=== PATIENT | male | born 1955 | race Caucasian/White ===

== ENCOUNTER 2016-07-19 17:34 | Emergency (ER) | payer MEDICARE ==
[~2016-07-19] VITALS: Ht 167.6 cm; Wt 136.5 kg
[2016-07-19] MEDS ORDERED: AMBI10TA PO (17:43)
[2016-07-19] MEDS ORDERED: NORC5TAB PO (17:44)
[2016-07-19] MEDS ORDERED: NORCO, ANEXSIA 5/325MG TABLET (HYDROcodone/ACETAMINOPHEN) PO ONE (19:30)
[2016-07-19] MEDS ORDERED: MOBI7.5T10 PO (20:14)
[2016-07-19 20:15] VITALS: BP 136/83
--- NOTE | 2016-07-20 10:30 | REP ---
Pain after fall. COMPARISON: None. Marked and advanced bilateral hip degenerative changes are present with flattening of the femoral heads, hip chris eburnation with marked prominent osteophytosis and developing protrusio acetabuli. Subchondral lucencies are seen bilaterally consistent with degenerative cyst/geode formation. Degenerative change is seen involving the imaged spine and sacroiliac joints. There is no evidence of an acute fracture or dislocation. IMPRESSION: Marked chronic changes as described above. Signed by Nick Gamble DO 07/20/2016 11:25 A
--- NOTE | 2016-07-20 10:35 | REP ---
Pain after trauma. COMPARISON: None. There are marked degenerative changes seen involving the right hip. Please see the AP pelvis report for more complete description. There is no acute fracture or dislocation. Signed by Nick Gamble DO 07/20/2016 11:25 A
== END 2016-07-19 20:16 | disposition home or self-care (01) ==
LOC: M ED 18:34
DX: S73.102A Unspecified sprain of left hip, initial encounter (principal); W18.40XA Slipping, tripping and stumbling without falling, unspecified, initial encounter; Y92.018 Other place in single-family (private) house as the place of occurrence of the external cause; Y93.89 Activity, other specified; Y99.8 Other external cause status; M19.90 Unspecified osteoarthritis, unspecified site

== ENCOUNTER 2016-09-18 09:08 | Inpatient (IN) | payer MEDICARE ==
[~2016-09-18] VITALS: Ht 180.3 cm; Wt 169.1 kg
[~2016-09-18 09:08] MED LIST: AMBI10TA PO; MOBI7.5T10 PO; NORC1TAB4 PO
[2016-09-18] MEDS ORDERED: CLON0.5T PO (09:40)
[2016-09-18] MEDS ORDERED: METF500T PO (09:40)
[2016-09-18] MEDS ORDERED: TRAM50TA2 PO (09:40)
[2016-09-18] MEDS ORDERED: LEVO50TA5 PO (09:40)
[2016-09-18] MEDS ORDERED: ACET300T52 PO (09:40)
[2016-09-18] MEDS ORDERED: NS 1,000 ML IV ONE (10:15)
[2016-09-18] MEDS: HYDROmorphone HCL 1 MG/ML SYRINGE (J1170) IV PRN ×2 (10:48→13:57)
--- NOTE | 2016-09-18 11:23 | REP ---
CT ABDOMEN AND PELVIS WITHOUT CONTRAST: CT abdomen and pelvis performed without oral or IV contrast with sagittal and coronal reconstruction images performed. Comparison made with prior study of 07/09/2007. In the visualized lung bases, there is a small right pleural effusion with mild adjacent atelectatic change. Liver, gallbladder, spleen, adrenals, pancreas and kidneys are grossly unremarkable. No renal or ureteral calculus is seen and there is no evidence of hydroureteronephrosis. Mild atherosclerotic calcifications are seen of the abdominal aorta without aneurysm. I do not see significant adenopathy. There is no free air or free fluid. There is no evidence of bowel wall thickening. There is sigmoid diverticulosis without evidence of acute diverticulitis. There are also diverticula of the left colon. There is an umbilical hernia present which demonstrates an aperture 2.2 cm in width with the hernia sac containing fat and measuring approximately 5.8 x 9.2 cm. Urinary bladder is mildly distended and grossly unremarkable. There are severe degenerative changes at the hips. IMPRESSION: Small right effusion with adjacent atelectatic change. Moderate to large umbilical hernia containing fat. Sigmoid diverticulosis without evidence of acute diverticulitis. Severe degenerative changes of the hip joints bilaterally. No other acute finding. Signed by Nathan Yang MD 09/18/2016 04:21 P
[2016-09-18 11:27] LABS: BASO % 0.1 % (0.0-1.0); EOS % 0.4 % (0.0-3.0); LARGE UNSTAINED CELL # 0.1 K/mm3 (0.0-0.4); LARGE UNSTAINED CELL % 1.4 % (0.0-4.0); LYMPH # 0.6 K/mm3 (1.5-4.5); LYMPH % 8.3 % (24.0-44.0); MEAN CORPUSCULAR HEMOGLOBIN 32.9 pg (27.0-33.0); MEAN CORPUSCULAR HGB CONC 32.7 g/dl (32.0-36.5); MEAN CORPUSCULAR VOLUME 100.4 fl (80.0-96.0); MONO # 0.3 K/mm3 (0.0-0.8); NEUTROPHILS # 5.8 K/mm3 (1.8-7.7); NEUTROPHILS % 85.9 % (36.0-66.0); PLATELET COUNT, AUTOMATED 113 k/mm3 (150-450); RED CELL DISTRIBUTION WIDTH 13.1 % (11.5-14.5); WHITE BLOOD COUNT 6.8 K/mm3 (4.0-10.0)
[2016-09-18 11:29] LABS: ALBUMIN 3.3 GM/DL (3.2-5.2); ALBUMIN/GLOBULIN RATIO 0.73 (1.00-1.93); ALKALINE PHOSPHATASE 372 U/L (45-117); ALT/SGPT 60 U/L (12-78); AMYLASE 154 U/L (25-115); ANION GAP 6 MEQ/L (8-16); AST/SGOT 70 U/L (15-37); BILIRUBIN,DIRECT 4.2 MG/DL (0.0-0.2); BILIRUBIN,TOTAL 5.5 MG/DL (0.2-1.0); BLOOD UREA NITROGEN 11 MG/DL (7-18); CALCIUM LEVEL 8.6 MG/DL (8.5-10.1); CARBON DIOXIDE LEVEL 27 MEQ/L (21-32); CHLORIDE LEVEL 107 MEQ/L (98-107); CREATININE FOR GFR 0.76 MG/DL (0.70-1.30); GLOMERULAR FILTRATION RATE > 60.0 (>56); GLUCOSE, FASTING 113 MG/DL (70-105); POTASSIUM SERUM 3.6 MEQ/L (3.5-5.1); SODIUM LEVEL 140 MEQ/L (136-145); TOTAL PROTEIN 7.8 GM/DL (6.4-8.2)
--- NOTE | 2016-09-18 12:57 | REP ---
Right upper quadrant sonography: History: Elevated lipase. Question obstruction. Comparison is made with today's CT study. Findings: Scanning through right upper quadrant of the abdomen shows limited image quality due to patient body habitus and gas. The patient exhibited tenderness to scanning diffusely. Scanning demonstrates a normal sized thin-walled gallbladder without evidence of stone or polyp. Common bile duct is normal measuring 0.3 cm in greatest diameter. No focal liver lesion is seen. There is no visible ascites by ultrasound. No right renal abnormality is seen although the right kidney is poorly seen. The pancreas is obscured by abdominal gas. The right kidney measures 12.9 x 7.2 x 6.2 cm. Impression: Somewhat limited scan quality. No evidence of cholelithiasis or other significant abnormality. Signed by Josh Marie MD 09/18/2016 01:00 P
[2016-09-18] MEDS ORDERED: DEXTROSE 50% 50 ML SYRINGE IV PRN (13:30)
[2016-09-18] MEDS ORDERED: GLUCOSE 4 GM CHEW TABLET PO PRN (13:30)
[2016-09-18] MEDS ORDERED: GLUCAGON FOR INJ 1 MG VIAL (J1610) SC PRN (13:30)
[2016-09-18] MEDS ORDERED: ACETAMINOPHEN TAB 650MG DOSE (2X325MG) PO PRN (13:30)
[2016-09-18] MEDS ORDERED: ONDANSETRON 4MG/2ML VIAL (J2405) IV PRN (13:30)
--- NOTE | 2016-09-18 14:06 | HPE ---
DATE OF ADMISSION: 09/18/2016 PRIMARY CARE PROVIDER: CHIEF COMPLAINT: Right upper abdominal pain. HISTORY OF PRESENT ILLNESS: This patient is a 61-year-old male with morbid obesity, severe osteoarthritis, diabetes, hypothyroidism, possible obstructive sleep apnea, who presented to [facility] on 09/18/2016 for acute right abdominal pain. The patient stated that around 2:00 to 3:00 a.m. this morning that he was resting and he experienced acute onset of achy type of pain without any radiation and the pain has been persistent and the patient came to [facility] for further evaluation. Laboratories showed that the patient had elevated lipase. The patient denies any alcohol use. Denies any fatty food consumption. Denies any history of gallstones. Denied any recent medication changes. Besides the abdominal pain, the patient denies any other associated symptoms. ALLERGIES: No known drug allergies. PAST MEDICAL HISTORY: 1. Morbid obesity. 2. Severe osteoarthritis, especially on the right hip. 3. Diabetes. 4. Hypothyroidism. 5. Carpal tunnel. 6. Possible obstructive sleep apnea. PAST SURGICAL HISTORY: 1. Appendectomy. 2. Tonsillectomy. HOME MEDICATIONS: - [place] one tablet by mouth three times a day as needed - Klonopin one tablet by mouth three times a day - levothyroxine 50 mcg daily - metformin 500 mg by mouth twice a day - tramadol one tablet every four hours as needed - Ambien 10 mg by mouth at night SOCIAL HISTORY: The patient used to smoke 1-1/2 packs daily for more than 30 years. The patient quit 5 weeks ago. The patient denied alcohol use. The patient denied any recreational drug use. REVIEW OF SYSTEMS: GENERAL: No fever. No chills. HEENT: No vision change. No auditory changes. CARDIOVASCULAR: No chest pain or palpitations. RESPIRATORY: No shortness of breath. No cough. No sputum production. ABDOMEN: Acute achy abdominal pain located in right upper quadrant without any radiation. No nausea. No vomiting. No diarrhea. MUSCULOSKELETAL: Chronic venous stasis changes in bilateral lower extremities. The patient has been taking intermittent Lasix diuresis. NEUROLOGIC: Denies any new numbness or tingling. OBJECTIVE: VITAL SIGNS: Temperature is 99.1, pulse is 51, respirations 18, blood pressure is 117/65, pulse oximetry is 98% on room air. GENERAL: Mild distress secondary to abdominal pain. Alert and oriented times three. HEENT: Normocephalic, atraumatic. Extraocular muscles are grossly intact. CARDIOVASCULAR: Positive S1, S2. Regular rate. LUNGS: Clear to auscultation bilaterally. No wheezes or rhonchi. ABDOMEN: Tender to palpation located in the right upper abdomen to the left lateral side. No rebound. No radiation. Abdomen is soft. Bowel sounds present. MUSCULOSKELETAL: Positive chronic venous stasis changes, mild ulcers of the bilateral shins. Positive lower extremity edema. No sign of cyanosis. LABORATORY DATA: WBC 6.8, hemoglobin 12.8, hematocrit 39.1, platelet count is 113. Sodium is 140, potassium 3.6, chloride 107, carbon dioxide 27, BUN 11, creatinine 0.76, GFR greater than 60, fasting glucose 113, calcium 8.6, total bilirubin 5.5, direct bilirubin is 4.2, AST 17, ALT 60, alkaline phosphatase 372. Total protein 7.8, albumin 3.3. Amylase is 154, lipase is 1105. IMAGING STUDIES: CT of the abdomen and pelvis without contrast showed small right effusion with adjacent atelectatic changes. Moderate to large umbilical hernia containing fat. Sigmoid diverticulosis without evidence of acute diverticulitis. Gallbladder ultrasound showed somewhat limited scan quality. No evidence of cholelithiasis or other significant abnormalities. ASSESSMENT AND PLAN: 1. Pancreatitis. The patient will be admitted to medical surgical floor under inpatient status. THe patient will be nothing by mouth with full hydration. The patient will get IV morphine for pain control. The patient denies any recent medication changes. Denies any fatty food. Denies any alcohol consumption. We will follow with a liver profile. Gallbladder ultrasound was obtained; however, the image quality is very limited. The final report shows that there is no stone. We will consider getting an MRCP. 2. Diabetes. The patient is nothing by mouth. The patient will be on sliding scale every 6 hours. I will follow with A1/c. 3. Hypothyroidism. The patient is on Synthroid. We will follow with a TSH. 4. Severe osteoarthritis. 5. Morbid obesity. 6. Possible obstructive sleep apnea. The patient will be on obstructive sleep apnea protocol. 7. Deep vein thrombosis (DVT) prophylaxis. The patient will be on heparin.
[2016-09-18 14:11] LABS: CHOLESTEROL LEVEL 131 MG/DL (<200); TRIGLYCERIDES LEVEL 61 MG/DL (<150)
[2016-09-18] MEDS: HumaLOG INSULIN (NovoLOG) PER UNIT SC SCH ×2 (14:49→18:00)
[2016-09-18] MEDS: NS 1,000 ML IV SCH ×2 (14:50→23:27)
[2016-09-18] MEDS: HEPARIN SOD (PORCINE) 5000 UNITS/ML VIAL SC SCH ×2 (14:50→20:45)
[2016-09-18] MEDS: MORPHINE 2 MG/ML 1ML SYRINGE IV PRN (18:42)
[2016-09-18] MEDS ORDERED: clonazePAM 0.5 MG TAB PO PRN (18:45)
[2016-09-18] MEDS: zolPIDEM TARTRATE 10MG TAB PO SCH (20:44)
[2016-09-18] MEDS: NYSTATIN 100,000 UNITS/GM TOPICAL PWD 15 GM TOP SCH (20:44)
[2016-09-18] MEDS: traMADol 50 MG TAB PO PRN (20:47)
[2016-09-18 22:00] VITALS: BP 147/73
[2016-09-19] MEDS: LEVOTHYROXINE 0.05 MG TAB (50 MCG) PO SCH (05:59)
[2016-09-19 06:00] VITALS: BP 163/81
[2016-09-19] MEDS: HumaLOG INSULIN (NovoLOG) PER UNIT SC SCH ×4 (06:00→18:00)
[2016-09-19] MEDS: HEPARIN SOD (PORCINE) 5000 UNITS/ML VIAL SC SCH ×3 (06:00→22:05)
[2016-09-19 06:56] LABS: MEAN CORPUSCULAR HGB CONC 33.1 g/dl (32.0-36.5); MEAN CORPUSCULAR VOLUME 99.8 fl (80.0-96.0); RED CELL DISTRIBUTION WIDTH 13.3 % (11.5-14.5); WHITE BLOOD COUNT 8.2 K/mm3 (4.0-10.0)
[2016-09-19 07:23] LABS: ANION GAP 9 MEQ/L (8-16); BLOOD UREA NITROGEN 11 MG/DL (7-18); CALCIUM LEVEL 7.8 MG/DL (8.5-10.1); CARBON DIOXIDE LEVEL 22 MEQ/L (21-32); CHLORIDE LEVEL 109 MEQ/L (98-107); GLOMERULAR FILTRATION RATE > 60.0 (>56); GLUCOSE, FASTING 75 MG/DL (70-105); POTASSIUM SERUM 3.7 MEQ/L (3.5-5.1); SODIUM LEVEL 140 MEQ/L (136-145)
[2016-09-19 07:28] LABS: ALBUMIN 2.8 GM/DL (3.2-5.2); ALBUMIN/GLOBULIN RATIO 0.8 (1.00-1.93); BILIRUBIN,DIRECT 4.2 MG/DL (0.0-0.2); BILIRUBIN,TOTAL 5.1 MG/DL (0.2-1.0); TOTAL PROTEIN 6.3 GM/DL (6.4-8.2)
[2016-09-19] MEDS: NYSTATIN 100,000 UNITS/GM TOPICAL PWD 15 GM TOP SCH ×2 (10:17→22:03)
[2016-09-19] MEDS: traMADol 50 MG TAB PO PRN ×3 (10:21→22:04)
[2016-09-19] MEDS: NS 1,000 ML IV SCH ×2 (10:22→19:52)
[2016-09-19 11:53] LABS: METHADONE URINE NEGATIVE (NEGATIVE)
--- NOTE | 2016-09-19 17:07 | IPNPDOC ---
Text Note Date of Service The patient was seen on 09/19/16. NOTE Subjective: Patient is a 61 year old male with a PMHx of NIDDM2, Hypothyroidism, NETTE, Severe OA, and morbid obesity who presented to the ER with complaints of right upper abdominal pain. He was found to have an elevated lipase level and he was admitted for acute pancreatitis. He has not had a gallbladder surgery and he denies any excessive alcohol use. Patient was seen and examined at the bedside. He denied any problems at this time. He notes that he does not have much nausea or vomiting, and is hungry at this time. Objective: Vitals (See below) General: Lying in bed, no acute distress, comfortable, AAOx3 HEENT: NC, AT CVS: RRR, +S1S2 Lungs: Fair air entry b/l, -w/r/r Abdomen: Soft, ND, No tenderness appreciated, +BSx4, Obese Extremities: +PPx4, - Edema, - Calf tenderness Assessment and plan: 1. s/p abdominal pain - likely 2/2 pancreatitis - possibly 2/2 gall bladder etiology - Presented with abdominal pain, nausea and vomiting; has resolved - Physical revealed RUQ and epigastric tenderness initially; has completely resolved - Lipase level initially elevated - Lipid panel noted and alcohol level negative - Labs today reveal worsening of liver enzymes - US abdomen has been negative - Will get HIDA scan to evaluate for any biliary etiology - c/w IV fluid hydration and symptomatic relief with morphine and zofran - Will start liquid clear diet now and advance as tolerated 2. NIDDM2 - c/w ISS for now 3. Hypothyroidism - c/w levothyroxine 4. Severe OA - c/w Tylenol PRN 5. Possible NETTE - c/w NETTE protocol 6. Morbid obesity 7. DVT prophylaxis - c/w Heparin VS,Fishbone, I+O VS, Fishbone, I+O Laboratory Tests 09/19/16 06:38 Red Blood Count 3.54 L, Mean Corpuscular Volume 99.8 H, Mean Corpuscular Hemoglobin 33.0, Mean Corpuscular Hemoglobin Concent 33.1, Red Cell Distribution Width 13.3, Calcium Level 7.8 L Vital Signs Date Time Temp Pulse Resp B/P (MAP) Pulse Ox O2 Delivery O2 Flow Rate FiO2 09/19/16 16:30 18 09/19/16 06:00 98.2 70 163/81 (458) 98 Room Air I&O- Last 24 Hours up to 6 AM 09/19/16 06:00 Intake Total 1000 ml Output Total 600 ml Balance 400 ml SHADY GONZALES MD September 19, 2016 17:07
--- NOTE | 2016-09-19 18:19 | REP ---
HIDA SCAN: Following the intravenous administration of 6.2 millicuries of technetium 99M Mebrofenin, multiple images of the right upper quadrant are performed for 1 hour. Biliary bile transit is seen. I do not visualize the gallbladder. Delayed images at 3 hours post injection also do not def show the gallbladder. IMPRESSION: Nonvisualization of the gallbladder 3 hours post injection suggests acute cholecystitis. Signed by Nathan Yang MD 09/19/2016 08:06 P
[2016-09-19] MEDS: MORPHINE 2 MG/ML 1ML SYRINGE IV PRN (20:10)
[2016-09-19 22:00] VITALS: BP 168/76
[2016-09-19] MEDS: zolPIDEM TARTRATE 10MG TAB PO SCH (22:03)
[2016-09-20] MEDS: MORPHINE 2 MG/ML 1ML SYRINGE IV PRN ×6 (02:50→15:42)
[2016-09-20] MEDS: NS 1,000 ML IV SCH (04:47)
[2016-09-20] MEDS: traMADol 50 MG TAB PO PRN ×3 (04:47→15:43)
[2016-09-20 06:00] VITALS: BP 156/71
[2016-09-20] MEDS: HumaLOG INSULIN (NovoLOG) PER UNIT SC SCH ×3 (06:00→12:00)
[2016-09-20] MEDS: HEPARIN SOD (PORCINE) 5000 UNITS/ML VIAL SC SCH ×2 (06:07→13:03)
[2016-09-20] MEDS: LEVOTHYROXINE 0.05 MG TAB (50 MCG) PO SCH (06:07)
[2016-09-20 06:22] LABS: MEAN CORPUSCULAR HEMOGLOBIN 32.8 pg (27.0-33.0); MEAN CORPUSCULAR HGB CONC 33.8 g/dl (32.0-36.5); MEAN CORPUSCULAR VOLUME 97.2 fl (80.0-96.0); RED CELL DISTRIBUTION WIDTH 13.4 % (11.5-14.5); WHITE BLOOD COUNT 6.6 K/mm3 (4.0-10.0)
[2016-09-20 06:38] LABS: ALBUMIN 2.6 GM/DL (3.2-5.2); ALBUMIN/GLOBULIN RATIO 0.63 (1.00-1.93); ALKALINE PHOSPHATASE 472 U/L (45-117); ALT/SGPT 92 U/L (12-78); ANION GAP 11 MEQ/L (8-16); AST/SGOT 107 U/L (15-37); BILIRUBIN,DIRECT 5.5 MG/DL (0.0-0.2); BILIRUBIN,TOTAL 6.8 MG/DL (0.2-1.0); BLOOD UREA NITROGEN 10 MG/DL (7-18); CALCIUM LEVEL 7.7 MG/DL (8.5-10.1); CARBON DIOXIDE LEVEL 21 MEQ/L (21-32); CHLORIDE LEVEL 105 MEQ/L (98-107); CREATININE FOR GFR 0.53 MG/DL (0.70-1.30); GLOMERULAR FILTRATION RATE > 60.0 (>56); GLUCOSE, FASTING 84 MG/DL (70-105); POTASSIUM SERUM 3.7 MEQ/L (3.5-5.1); SODIUM LEVEL 137 MEQ/L (136-145); TOTAL PROTEIN 6.7 GM/DL (6.4-8.2)
[2016-09-20] MEDS: NYSTATIN 100,000 UNITS/GM TOPICAL PWD 15 GM TOP SCH (08:43)
--- NOTE | 2016-09-20 11:24 | IPNPDOC ---
Text Note Date of Service The patient was seen on 09/20/16. NOTE Subjective: Patient is a 61 year old male with a PMHx of NIDDM2, Hypothyroidism, NETTE, Severe OA, and morbid obesity who presented to the ER with complaints of right upper abdominal pain. He was found to have an elevated lipase level and he was admitted for acute pancreatitis. He has not had a gallbladder surgery and he denies any excessive alcohol use. Patient was seen and examined at the bedside. Patient notes that his abdominal pain is recurring again. He has lost his appetite. Denies any nausea or vomiting. Objective: Vitals (See below) General: Lying in bed, no acute distress, comfortable, AAOx3 HEENT: NC, AT CVS: RRR, +S1S2 Lungs: Fair air entry b/l, -w/r/r Abdomen: Soft, ND, RUQ tenderness, +BSx4, Obese Extremities: +PPx4, - Edema, - Calf tenderness Assessment and plan: 1. Abdominal pain - likely 2/2 pancreatitis - possibly 2/2 gall bladder etiology - Presented with abdominal pain, nausea and vomiting; recurred - Physical revealed RUQ and epigastric tenderness initially; Now localized to RUQ - Lipase level normalized - Lipid panel noted and alcohol level negative - Labs again show AST / ALT elevation and Alk phos trending upward - US abdomen has been negative - HIDA scan positive for acute cholecystitis - c/w IV fluid hydration and symptomatic relief with morphine and zofran - Discussed with Dr. Gordillo (General surgery) - will evaluate the patient; will keep NPO since this morning 2. NIDDM2 - c/w ISS for now 3. Hypothyroidism - c/w levothyroxine 4. Severe OA - c/w Tylenol PRN 5. Possible NETTE - c/w NETTE protocol 6. Morbid obesity 7. DVT prophylaxis - c/w Heparin VS,Fishbone, I+O VS, Fishbone, I+O Laboratory Tests 09/20/16 05:58 Red Blood Count 3.63 L, Mean Corpuscular Volume 97.2 H, Mean Corpuscular Hemoglobin 32.8, Mean Corpuscular Hemoglobin Concent 33.8, Red Cell Distribution Width 13.4 Vital Signs Date Time Temp Pulse Resp B/P (MAP) Pulse Ox O2 Delivery O2 Flow Rate FiO2 09/20/16 11:18 18 Room Air 09/20/16 06:00 98.5 53 156/71 (79) 97 I&O- Last 24 Hours up to 6 AM 09/20/16 06:00 Intake Total 3950 ml Balance 3950 ml SHADY GONZALES MD September 20, 2016 11:24
[2016-09-20] MEDS ORDERED: HEPA50VL SC (12:45)
[2016-09-20] MEDS ORDERED: MERO1INJ IV (12:45)
[2016-09-20] MEDS ORDERED: INSUHUMDS SC (12:45)
[2016-09-20] MEDS ORDERED: MEROPENEM INJ 1 GM in D5W MINI-BAG PLUS 100 ML IV SCH (13:00)
--- NOTE | 2016-09-20 14:01 | DSES ---
DATE OF ADMISSION: 09/18/2016 DATE OF DISCHARGE: 09/20/2016 ATTENDING PHYSICIAN: Dr. Philip Sullivan PRIMARY CARE PROVIDER: Gianluca Stewart REFERRING PHYSICIAN: None. CONSULTING PHYSICIAN: Dr. Gordillo CONDITION ON DISCHARGE: Guarded. FINAL DIAGNOSIS: Abdominal pain, likely secondary to pancreatitis, possibly secondary to acute cholecystitis/choledocholithiasis. PROCEDURES: None. HISTORY OF PRESENT ILLNESS: Patient is a 61-year-old male with a past medical history of a [id number] diabetes mellitus type 2, hypothyroidism, obstructive sleep apnea, severe osteoarthritis, and morbid obesity, who presented to the emergency room with complaints of right upper abdominal pain. He was found to have an elevated lipase, and he was admitted for acute pancreatitis. He has not had a gallbladder surgery, and he denies any excessive alcohol use. HOSPITAL COURSE: 1. Abdominal pain, likely secondary to pancreatitis, possibly secondary to gallbladder etiology, possibly secondary to acute cholecystitis and choledocholithiasis. Presented with abdominal pain, nausea, vomiting, which was improving initially but had recurred. Physical initially revealed right upper quadrant pain and epigastric tenderness initially, but now it is localized to the right upper quadrant. Lipase was elevated upon admission but has trended down to normal. Liver panel was noted and was within normal limits. Alcohol level was negative. Labs throughout the hospital course revealed an elevation in his AST and ALT, which trended upward, and his alkaline phosphatase, which trended upward. Ultrasound of abdomen was completed, which was negative. Hepatobiliary iminodiacetic acid (HIDA) scan was positive for possible acute cholecystitis and could not visual the gallbladder. Patient was put on IV fluid hydration and symptomatic relief with morphine and Zofran. Dr. Gordillo was consulted for general surgery, who evaluated the patient and advised that this is less likely secondary to acute cholecystitis and possibly secondary to choledocholithiasis and would benefit from getting an endoscopic retrograde cholangiopancreatography (ERCP) performed, at which point, patient was arranged for transfer to [facility] for gastroenterology and ERCP procedure. 2. Hud-askngje-teknqirit diabetes mellitus type 2. Continue with insulin sliding scale for now. 3. Hypothyroidism. Continue with levothyroxine. 4. Severe osteoarthritis. Continue with Tylenol as needed for pain. 5. Possible obstructive sleep apnea. Continue with obstructive sleep apnea (NETTE) protocol. 6. Morbid obesity. 7. Deep venous thrombosis (DVT) prophylaxis. Continue with heparin. DISCHARGE MEDICATIONS: Patient will be discharged/transferred with the following medications: - clonazepam 0.5 mg by mouth three times a day as needed anxiety - levothyroxine 50 mcg by mouth daily - heparin 5000 units subcutaneous every 8 hours - insulin Lispro upon sliding scale every 6 hours - meropenem 1 gram IV every 8 hours - normal saline at infusion of 100 mL/h - Zofran 4 mg IV every 6 hours as needed nausea DISCHARGE INSTRUCTIONS: Patient has been advised that he will be transferred to [facility] for further evaluation and treatment because we do not have the capabilities to treat him here. Patient will be accepted by Dr. Melendez, who will be the accepting physician. He has advised to get two sets of blood cultures and start him on antibiotics, which have been completed. TIME SPENT ON DISCHARGE: 35 minutes. Edited: cheikh 09/23/2016 1446
[2016-09-20 15:45] VITALS: BP 170/88
== END 2016-09-20 16:02 | disposition short-term general hospital (02) | DRG 444 ==
LOC: M ED 10:20 → M MS5PR 14:00 → M ED 16:00
PROVIDERS: ADMIT Internal Medicine; ATTEND Internal Medicine
DX: K80.43 Calculus of bile duct with acute cholecystitis with obstruction (principal); K85.90 Acute pancreatitis without necrosis or infection, unspecified; Z68.41 Body mass index [BMI] 40.0-44.9, adult; E66.01 Morbid (severe) obesity due to excess calories; M16.11 Unilateral primary osteoarthritis, right hip; E11.9 Type 2 diabetes mellitus without complications; E03.9 Hypothyroidism, unspecified; G47.33 Obstructive sleep apnea (adult) (pediatric); G56.00 Carpal tunnel syndrome, unspecified upper limb; Z79.84 Long term (current) use of oral hypoglycemic drugs; Z79.899 Other long term (current) drug therapy; Z87.891 Personal history of nicotine dependence

== ENCOUNTER → 2018-02-26 | Outpatient (CLI) | payer OTHER ==
[2018-02-26 13:52] LABS: BASO # 0.1 10^3/uL (0.0-0.2); BASO % 0.6 % (0.0-1.0); EOS # 0.3 10^3/uL (0.0-0.50); EOS % 3.1 % (0.0-3.0); HEMOGLOBIN 15.2 g/dl (13.5-17.5); IMMATURE GRANULOCYTE % 0.4 % (0-3.0); LYMPH # 1.8 10^3/uL (1.5-4.5); LYMPH % 22.9 % (24.0-44.0); MEAN CORPUSCULAR HEMOGLOBIN 31.4 pg (27.0-33.0); MONO # 0.7 10^3/uL (0.0-0.8); MONO % 9.1 % (0.0-5.0); NEUTROPHILS # 5.1 10^3/uL (1.8-7.7); NEUTROPHILS % 63.9 % (36.0-66.0); PLATELET COUNT, AUTOMATED 146 10^3/uL (150-450); RED BLOOD COUNT 4.84 10^6/uL (4.30-6.10); RED CELL DISTRIBUTION WIDTH 13.1 % (11.5-14.5)
[2018-02-26 14:27] LABS: ANION GAP 9 MEQ/L (8-16); BLOOD UREA NITROGEN 19 MG/DL (7-18); CALCIUM LEVEL 8.5 MG/DL (8.8-10.2); CARBON DIOXIDE LEVEL 30 MEQ/L (21-32); CHLORIDE LEVEL 103 MEQ/L (98-107); CHOLESTEROL LEVEL 189 MG/DL (<200); CHOLESTEROL RISK RATIO 2.454 (<5); CREATININE FOR GFR 0.83 MG/DL (0.70-1.30); FREE T4 0.95 NG/DL (0.76-1.46); GLOMERULAR FILTRATION RATE > 60.0 (>49); GLUCOSE, FASTING 91 MG/DL (70-100); HDL CHOLESTEROL 77 MG/DL (>40); LDL CHOLESTEROL 99 MG/DL (<100); NON-HDL-C 112 MG/DL; POTASSIUM SERUM 4.3 MEQ/L (3.5-5.1); SODIUM LEVEL 142 MEQ/L (136-145); TRIGLYCERIDES LEVEL 67 MG/DL (<150)
[2018-03-03 00:11] LABS: HEPATITIS C QUANTITATION HCV Not Detected IU/mL (.)
== END ==
LOC: M LAB 13:04
DX: Z11.59 Encounter for screening for other viral diseases (principal); E03.9 Hypothyroidism, unspecified; R73.01 Impaired fasting glucose
CPT/HCPCS: 84443

== ENCOUNTER → 2018-03-23 | Outpatient (REF) | payer OTHER | LOC: M LAB REF 13:29 | DX: R35.0 Frequency of micturition (principal) | CPT/HCPCS: 87186 ==

== ENCOUNTER → 2018-04-08 | Outpatient (REF) | payer OTHER | LOC: M LAB REF 17:22 | DX: R73.01 Impaired fasting glucose (principal) | CPT/HCPCS: 82043 ==

== ENCOUNTER 2018-06-08 12:29 | Outpatient (RCR) | payer MEDICARE ==
[~2018-06-08 12:29] MED LIST changes: +ACET300T52 PO; +CLON0.5T8 PO; +HEPA50VL SC; +INSUHUMDS SC; +LEVO50TA5 PO; +MERO1INJ IV; +METF500T13 PO; +MOBI4TAB PO; -MOBI7.5T10 PO; +TRAM50TA2 PO
== END 2018-06-10 ==
LOC: M PT 12:29
PROVIDERS: ATTEND Family Medicine
DX: Z47.89 Encounter for other orthopedic aftercare (principal); M79.662 Pain in left lower leg

== ENCOUNTER 2018-06-18 13:15 | Outpatient (RCR) | payer MEDICARE ==
[2018-06-19] MEDS ORDERED: PATIENT COMMENTS (05:53)
[2018-06-19] MEDS ORDERED: FURO40TA2 PO (09:22)
[2018-06-23] MEDS ORDERED: LEVO500T3 PO (11:23)
[2018-06-23] MEDS ORDERED: NYAM10003 TOP (11:23)
[2018-06-23] MEDS ORDERED: METO1TAB87 PO (11:23)
== END 2018-07-08 ==
LOC: M PT 13:15
PROVIDERS: ATTEND Family Medicine
DX: M79.662 Pain in left lower leg (principal)

== ENCOUNTER 2018-06-19 01:54 | Inpatient (IN) | payer MEDICARE ==
[~2018-06-19] VITALS: Ht 165.1 cm; Wt 171.6 kg
[2018-06-19] MEDS ORDERED: METAL LOCK LOOP XX ONE (02:27)
[2018-06-19 03:03] LABS: BASO % 0.3 % (0.0-1.0); EOS % 0.4 % (0.0-3.0); HEMATOCRIT 41.4 % (42.0-52.0); HEMOGLOBIN 13.6 g/dl (13.5-17.5); LYMPH # 0.6 10^3/uL (1.5-4.5); LYMPH % 8.3 % (24.0-44.0); MEAN CORPUSCULAR HEMOGLOBIN 31.9 pg (27.0-33.0); MEAN CORPUSCULAR HGB CONC 32.9 g/dl (32.0-36.5); MONO # 0.4 10^3/uL (0.0-0.8); MONO % 5.8 % (0.0-5.0); NEUTROPHILS # 6.1 10^3/uL (1.8-7.7); NEUTROPHILS % 84.5 % (36.0-66.0); PLATELET COUNT, AUTOMATED 112 10^3/uL (150-450); RED BLOOD COUNT 4.27 10^6/uL (4.30-6.10); WHITE BLOOD COUNT 7.2 10^3/uL (4.0-10.0)
[2018-06-19] MEDS: GASTROGRAFIN SOLUTION 30ML PO SCH ×2 (03:07→03:54)
[2018-06-19 03:29] LABS: ALBUMIN 3.5 GM/DL (3.2-5.2); ALT/SGPT 19 U/L (12-78); BILIRUBIN,DIRECT 0.3 MG/DL (0.0-0.2); BILIRUBIN,TOTAL 0.8 MG/DL (0.2-1.0); BLOOD UREA NITROGEN 13 MG/DL (7-18); CALCIUM LEVEL 8.3 MG/DL (8.8-10.2); CARBON DIOXIDE LEVEL 29 MEQ/L (21-32); CHLORIDE LEVEL 105 MEQ/L (98-107); CREATININE FOR GFR 0.83 MG/DL (0.70-1.30); GLOMERULAR FILTRATION RATE > 60.0 (>49); GLUCOSE, FASTING 125 MG/DL (70-100); LIPASE 85 U/L (73-393); POTASSIUM SERUM 4.2 MEQ/L (3.5-5.1); SODIUM LEVEL 140 MEQ/L (136-145); TOTAL PROTEIN 7.4 GM/DL (6.4-8.2)
[2018-06-19] MEDS ORDERED: ISOVUE-370 76% 100ML VIAL (Q9967) As Ordered ONE (03:35)
[2018-06-19] MEDS ORDERED: PATIENT COMMENTS (05:53)
--- NOTE | 2018-06-19 06:07 | REPVR ---
EXAM: CT Abdomen and Pelvis With Contrast EXAM DATE/TIME: 06/19/2018 2:23 AM CLINICAL HISTORY: 63 years old, male; Pain; Abdominal pain; Periumbilical; Additional info: Pain/supraumbilical hernia TECHNIQUE: Axial computed tomography images of the abdomen and pelvis with intravenous contrast. All CT scans at this facility use at least one of these dose optimization techniques: automated exposure control; mA and/or kV adjustment per patient size (includes targeted exams where dose is matched to clinical indication); or iterative reconstruction. Coronal and sagittal reformatted images were created and reviewed. CONTRAST: 100 ml of iso administered intravenously. COMPARISON: CT ABD PELVIS W/O CONTRAST 09/18/2016 10:26 AM FINDINGS: Lower thorax: Minimal bibasilar fibro-atelectatic change. ABDOMEN: Liver: Normal. No mass. Gallbladder and bile ducts: Absent gallbladder. Pancreas: Normal. No ductal dilation. Spleen: Normal. No splenomegaly. Adrenals: Normal. No mass. Kidneys and ureters: Right renal staghorn calculus with slightly delayed right nephrogram and slight right renal sinus and perinephric edema suggesting some relative obstruction at the level of the renal pelvis. Stomach and bowel: There is colonic diverticulosis without evidence of diverticulitis. Mild distention of small bowel with air-fluid levels. There is a point of transition upon entry into a moderate umbilical hernia with borderline distended segments within and complete collapse upon reentry into the abdomen. Appendix: There are no changes of appendicitis. A normal appendix is not seen. PELVIS: Bladder: Unremarkable as visualized. Reproductive: Unremarkable as visualized. ABDOMEN and PELVIS: Intraperitoneal space: Normal. No free air. No significant fluid collection. Bones/joints: Left hip prosthesis with beam hardening artifact. There is prominent degenerative change of the right hip with [id number] articulation and prominent remodeling. Soft tissues: There is slight induration of fat at the deep aspect of the umbilical hernia neck. Vasculature: Normal. No abdominal aortic aneurysm. Lymph nodes: Normal. No enlarged lymph nodes. IMPRESSION: 1. Resolution of right pleural effusion since 09/18/2016 with decreased right lower lobe atelectasis. 2. Moderate umbilical hernia which contains fat and new extension of small bowel into the hernia since the prior study. There is secondary small bowel obstruction due to incarceration of small bowel segments. 3. Interval cholecystectomy since the prior study. 4. Interval left hip prosthesis since the prior study. There is persistent prominent degenerative change of the right hip. 5. Interval right staghorn renal calculus with suggestion of some secondary obstructive uropathy or possible infection. 6. Colonic diverticulosis without diverticulitis. Electronically signed by: King Bruce On 06/19/2018 06:06:37 AM
[2018-06-19] MEDS ORDERED: NS 1,000 ML IV ONE (08:00)
[2018-06-19] MEDS ORDERED: FURO40TA2 PO (09:22)
--- NOTE | 2018-06-19 10:08 | HPE ---
DATE OF ADMISSION: 06/19/2018 PRIMARY CARE PROVIDER: Dr. Jacklyn Read CHIEF COMPLAINT: Incarcerated hernia. HISTORY: I was called by the hospitalist to admit the patient after Dr. Betancoutr from surgery reduced an incarcerated hernia. The patient is being admitted apparently for definitive surgical treatment. PAST HISTORY: 1. Morbid obesity. 2. Type 2 diabetes . 3. Hypothyroidism. 4. Carpal tunnel syndrome. 5. Possible obstructive sleep apnea. 6. Arthritis. He tells me, no records available, that he had a "heart attack" at [facility] last year when he had right hip surgery. He does not have a administrative services manager that he follows with. In September 2016 he was admitted to the hospitalist service with pancreatitis. At that time, he was taking Klonopin, levothyroxine 50 mcg daily, metformin 500 mg twice a day, Tramadol and Ambien. Currently, he only appears to be taking Klonopin. SOCIAL HISTORY: He smoked 1-1/2 packs per day, quit in the past. He denies alcohol use. ALLERGIES: None known. REVIEW OF SYSTEMS: Denies cough, wheeze, hemoptysis, chest pain, dyspnea on exertion, rectal bleeding, urinary bleeding. SURGICAL HISTORY: He has had a cholecystectomy. FAMILY HISTORY: Noncontributory. PHYSICAL EXAMINATION: 154/78, pulse 71, respiratory rate 20, 100% saturation on room air. 98.6 degrees. GENERAL APPEARANCE: He is morbidly obese, lying in bed. Nasogastric tube in place. HEENT: Unremarkable. NECK: No masses. LUNGS: Clear. HEART: Regular rhythm. No murmur. ABDOMEN: Obese. Nontender. No masses. EXTREMITIES: 1+ edema. Venous stasis dermatitis bilaterally. Decreased pulses in the feet but still palpable. NEUROLOGIC: Nonfocal. LABORATORIES: White count 7.2, hemoglobin 13.6, platelets 112. Sodium 140, potassium 4.2, BUN 13, creatinine 0.8, glucose 125. Liver function is normal. His platelets are at baseline. They were 110 to 120 range in September 2016. IMPRESSION: 1. The patient is being admitted to the hospital service in anticipation of surgery for incarcerated hernia. 2. Past history of type 2 diabetes. Currently on no medication. Hemoglobin A1/c is ordered. If blood sugar is significantly elevated, we could start fingersticks with coverage. I am not sure that he needs that yet. 3. History of hypothyroidism. Check Free T4 and TSH. In February 2018 these were both normal and apparently not on any thyroid replacement. 4. Chronic anxiety. Continue Klonopin. 5. Right staghorn calculus with suggestion of possible perinephric edema with some obstruction. He should see urology as an outpatient. It should not interfere with his impending surgery. He will be admitted to Dr. Petra Schroeder's service. I will be rounding on him this weekend.
[2018-06-19 11:49] LABS: FREE T4 0.93 NG/DL (0.76-1.46)
[2018-06-19 14:10] VITALS: BP 137/70
[2018-06-19] MEDS ORDERED: GASTROGRAFIN SOLUTION 30ML PO SCH (14:20)
[2018-06-19] MEDS: KCL 20MEQ IN 0.45NS 1000ML 1,000 ML IV SCH ×2 (15:54→23:35)
[2018-06-19] MEDS: ENOXAPARIN 40 MG/0.4 ML SYRINGE (J1650) SC SCH (15:54)
[2018-06-19 16:00] VITALS: BP 132/72
[2018-06-19 16:23] LABS: APPEARANCE, URINE CLOUDY (CLEAR); BACTERIA, URINE AUTO 1+ (NEGATIVE); BILIRUBIN, URINE AUTO NEGATIVE (NEGATIVE); BLOOD, URINE BLOOD NEGATIVE (NEGATIVE); COLOR, URINE YELLOW (YELLOW); GLUCOSE, URINE (UA) AUTO NEGATIVE (NEGATIVE); KETONE, URINE AUTO TRACE mg/dL (NEGATIVE); LEUKOCYTE ESTERASE, URINE AUTO 3+ (NEGATIVE); MUCUS, URINE SMALL (NEGATIVE); NITRITE, URINE AUTO NEGATIVE (NEGATIVE); PROTEIN, URINE AUTO 2+ mg/dL (NEGATIVE); RBC, URINE AUTO 25 /HPF (0-3); SPECIFIC GRAVITY URINE AUTO 1.033 (1.002-1.035); SQUAMOUS EPITHELIAL CELL UR AU 1 /HPF (0-6); TRIPLE PHOSPHATE CRYSTALS SMALL; WBC, URINE AUTO TNTC /HPF (0-3)
[2018-06-19 20:00] VITALS: BP 135/63
[2018-06-19] MEDS: clonazePAM 0.5 MG TAB PO PRN (22:11)
[2018-06-19 23:59] VITALS: BP 134/67
[2018-06-20 04:00] VITALS: BP 145/78
[2018-06-20 05:41] LABS: HEMATOCRIT 42.8 % (42.0-52.0); HEMOGLOBIN 13.7 g/dl (13.5-17.5); MEAN CORPUSCULAR HEMOGLOBIN 31.7 pg (27.0-33.0); MEAN CORPUSCULAR VOLUME 99.1 fl (80.0-96.0); PLATELET COUNT, AUTOMATED 108 10^3/uL (150-450); RED BLOOD COUNT 4.32 10^6/uL (4.30-6.10); WHITE BLOOD COUNT 8.8 10^3/uL (4.0-10.0)
[2018-06-20 06:19] LABS: ALBUMIN 3.1 GM/DL (3.2-5.2); ALT/SGPT 22 U/L (12-78); BILIRUBIN,TOTAL 1.3 MG/DL (0.2-1.0); BLOOD UREA NITROGEN 12 MG/DL (7-18); CALCIUM LEVEL 7.8 MG/DL (8.8-10.2); CARBON DIOXIDE LEVEL 31 MEQ/L (21-32); CHLORIDE LEVEL 105 MEQ/L (98-107); CREATININE FOR GFR 0.78 MG/DL (0.70-1.30); GLOMERULAR FILTRATION RATE > 60.0 (>49); GLUCOSE, FASTING 93 MG/DL (70-100); POTASSIUM SERUM 3.7 MEQ/L (3.5-5.1); SODIUM LEVEL 142 MEQ/L (136-145); TOTAL PROTEIN 7.2 GM/DL (6.4-8.2)
[2018-06-20 08:00] VITALS: BP 164/82
--- NOTE | 2018-06-20 09:01 | ECHO ---
DATE OF PROCEDURE: 06/19/2018 REFERRING PHYSICIAN: Dr. Chris INDICATION: History of myocardial infarction. Height 163 cm Weight 154 kg DIMENSIONS: IVS 1.0 LV 5.3 LVPW 1.2 LA 4.5 Aorta 3.4 IVC 2.8 Left atrial volume index 44 Mitral E wave 103 Mitral A wave velocity 112 E prime septal 8.3 E prime lateral 7.8 FINDINGS: The study is of relatively acceptable quality considering patient's body habitus. Left ventricle is normal size. Borderline LVH is present. I estimate ejection fraction probably within normal range based on limited visualization. Right ventricle does not appear grossly enlarged. Left atrium is severely enlarged right atrium was poorly visualized. No pericardial effusion is noted. Aortic valve is minimally sclerotic but has normal mobility. Mitral and tricuspid valves appear grossly normal but for some mild mitral annular calcifications. Pulmonic valve was poorly seen but grossly appears normal. Inferior vena cava is dilated but collapses with respiration, indicative of likely mildly elevated CVP. Aortic root is normal. Aortic arch and abdominal aorta were poorly seen but grossly appear normal. Doppler interrogation of aortic valve reveals no insufficiency and trivial stenosis with mean gradient 9 mmHg. There is trace mitral and trace tricuspid insufficiency. Calculated pulmonary artery pressure is in 30s based on fair quality TR jet. Mitral inflow pattern and tissue Doppler imaging of mitral annulus reveal grade 1 diastolic dysfunction. CONCLUSIONS: 1. Study is of fair technical quality. 2. Normal LV size with probably normal LV systolic function and grade 1 diastolic dysfunction. 3. Aortic sclerosis with trivial stenosis and no insufficiency. 4. Trace mitral and tricuspid insufficiency. 5. Elevated central venous pressure and at least mild pulmonary hypertension. COMMENTS: SBE prophylaxis is not recommended.
[2018-06-20] MEDS: ENOXAPARIN 40 MG/0.4 ML SYRINGE (J1650) SC SCH (10:03)
[2018-06-20] MEDS: METOPROLOL TART 25 MG TABLET PO SCH ×2 (10:47→20:23)
[2018-06-20] MEDS: KCL 20MEQ IN 0.45NS 1000ML 1,000 ML IV SCH ×2 (11:22→19:56)
[2018-06-20 12:00] VITALS: BP 138/71
--- NOTE | 2018-06-20 13:06 | ECGEPIP ---
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
--- NOTE | 2018-06-20 14:20 | IPN ---
DATE: 06/20/2018 Ta is seen in progressive care unit (PCU). Per nursing staff, his nasogastric tube is being pulled today. He denies any chest pain, shortness of breath or abdominal pain. PHYSICAL EXAMINATION: Afebrile. 164/82, pulse in the 70s. GENERAL APPEARANCE: He is lying in bed and morbidly obese. Nasogastric tube is in place. LUNGS: Clear. HEART: Regular rhythm. ABDOMEN: Soft. Mild tender in the periumbilical area. Nondistended. EXTREMITIES : 1+ peripheral edema with venous stasis dermatitis. Moves arms and legs with equal strength. LABORATORIES: CBC unremarkable. BMP unremarkable. IMPRESSION: 1. Bowel obstruction secondary to incarcerated umbilical hernia, which has been reduced. Surgery is on board and plans definitive treatment but would like a preoperative cardiology evaluation before that, as the patient tells me that he had a myocardial infarction with recent hip surgery. 2. Suspected obstructive sleep apnea. His echocardiogram showed normal ejection fraction, no wall motion abnormality, but did have increased right sided pressure. Suspect he has obstructive sleep apnea. We will order nocturnal oximetry. 3. Question of coronary artery disease. Again, the patient says that he had a myocardial infarction when he had his hip surgery in 2018. Echocardiogram shows no wall motion abnormalities. We will ask Dr. Leach to see him for perioperative cardiac evaluation. It does not look like he had an EKG on admission so we will order one. 4. Reported type 2 diabetes. Currently on no medications. His hemoglobin A1/c is 5%, which is normal. I suspect that is a misdiagnosis and I suspect that he does NOT have type 2 diabetes. 5. Reported hypothyroidism. Free T4 and TSH are normal on no thyroid replacement. Again, I suspect that is an erroneous diagnosis.
[2018-06-20 16:00] VITALS: BP 134/72
[2018-06-20 20:00] VITALS: BP 135/72
[2018-06-20] MEDS: clonazePAM 0.5 MG TAB PO PRN (22:31)
[2018-06-20 23:59] VITALS: BP 137/79
[2018-06-21] MEDS: KCL 20MEQ IN 0.45NS 1000ML 1,000 ML IV SCH
[2018-06-21 04:00] VITALS: BP 135/62
[2018-06-21 05:32] LABS: HEMATOCRIT 41.9 % (42.0-52.0); HEMOGLOBIN 13.4 g/dl (13.5-17.5); MEAN CORPUSCULAR HEMOGLOBIN 31.5 pg (27.0-33.0); MEAN CORPUSCULAR VOLUME 98.6 fl (80.0-96.0); RED BLOOD COUNT 4.25 10^6/uL (4.30-6.10); WHITE BLOOD COUNT 8.6 10^3/uL (4.0-10.0)
[2018-06-21 05:36] LABS: ALBUMIN 2.9 GM/DL (3.2-5.2); ALT/SGPT 23 U/L (12-78); BILIRUBIN,TOTAL 1.3 MG/DL (0.2-1.0); BLOOD UREA NITROGEN 13 MG/DL (7-18); CALCIUM LEVEL 7.4 MG/DL (8.8-10.2); CARBON DIOXIDE LEVEL 26 MEQ/L (21-32); CHLORIDE LEVEL 106 MEQ/L (98-107); CREATININE FOR GFR 0.72 MG/DL (0.70-1.30); GLOMERULAR FILTRATION RATE > 60.0 (>49); GLUCOSE, FASTING 72 MG/DL (70-100); POTASSIUM SERUM 3.8 MEQ/L (3.5-5.1); SODIUM LEVEL 139 MEQ/L (136-145)
[2018-06-21 05:49] LABS: PLATELET COUNT, AUTOMATED 98 10^3/uL (150-450)
--- NOTE | 2018-06-21 07:47 | CR ---
DATE OF CONSULTATION: 06/19/2018 REASON FOR CONSULTATION: The patient was seen early this morning for abdominal pain that has been quite severe in nature. He underwent a CAT scan. The CAT scan revealed incarcerated periumbilical hernia with small bowel within this with evidence of small bowel obstruction. He has had a periumbilical hernia for some time, but noticed acute onset of this abdominal pain. He came to the emergency room with nausea and vomiting. PAST MEDICAL HISTORY: Significant for history of morbid obesity, type 2 diabetes mellitus, history of hypothyroidism, history of carpal tunnel syndrome, history of obstructive sleep apnea, history of arthritis, history of smoking in the past, history of anxiety, history of questionable heart attack, history of right hip surgery, history of noncompliance, history of cholecystectomy. MEDICATIONS: He is not sure what he takes, only Klonopin is what he has listed. PHYSICAL EXAMINATION: Reveals a 63-year-old male who looks stated age. He has bile emesis all over his sahu and his face. He is complaining about abdominal pain. He has an NG tube in that is draining some bilious drainage. He does not appear acutely distressed at this moment. His lungs are clear anteriorly. Heart is regular with a few irregular beats. Abdomen reveals a periumbilical hernia that is tight within the hernia sac, but as I start to move it around I was able to reduce the bowel component to it and I was able to hear this reduce with some gurgling and, more importantly, the patient noticed immediate resolution of discomfort and pain in the periumbilical area. However, I still feel some probable omentum that is stuck within this hernia sac itself, but I am not appreciating any other significant abnormalities at this time on his abdominal exam. IMPRESSION AND PLAN: The patient has an incarcerated umbilical hernia. However, fortunately at this point, I feel that his bowel is no longer significantly compromised. I anticipate his bowel obstruction should resolve and in this manner I am hoping that with the bowel reduced that we can have resolution of his bowel obstructive component and proceed with a laparoscopic incisional hernia repair when he is medically clear. Otherwise, an open operative intervention has an incredibly high risk for recurrence given his morbid obesity. His body mass index (BMI) is at least over 50 just on evaluation at this time. Thus, recurrence rates are going to be incredibly high if not absolute.
--- NOTE | 2018-06-21 07:58 | IPN ---
DATE: 06/20/2018 The patient had some bowel movements yesterday after I reduced his hernia in the emergency room. Since that time, he still had a fair bit of NG tube output and it has actually been quite a bit, but he states that his abdominal pain has resolved and his only complaint at this time is the NG tube that is in place. He has had no fevers or chills. After discussion with Dr. Chris yesterday, it sounds as though there is some question of cardiac event in the past and he would like cardiology to see him on Thursday and then determine his candidacy for operative intervention. After evaluating him, the big question I have at this point is whether he should be an individual that if we can optimize him adequately, should receive a gastric bypass, i.e., possible sleeve, to lose some weight to make an operative intervention more successful. At this point, I do have great concerns specifically that he will have a high rate of recurrence, just given his morbid obesity and the amount of tension that will be placed across this repair. In any case, he understands our current concerns and will see what cardiology says. If cardiology would like to defer operative intervention, then will see if we can get an outpatient evaluation with bariatric surgery and have him consider possible sleeve gastrectomy. I anticipate a sleeve gastrectomy would be a much better option than a gastric bypass given his noncompliance issues and keeping things as close to normal anatomical, but decreasing the total size of the stomach might be at least a reasonable option and if he can lose some 50-75 pounds it would make him a much more reasonable operative candidate. Fortunately, at this point, he has no evidence of emergent intervention needed. Will wait cardiology's recommendations.
[2018-06-21 08:00] VITALS: BP 138/69
--- NOTE | 2018-06-21 08:37 | REP ---
ABDOMINAL SERIES: Cross-table lateral film of the abdomen demonstrates no evidence of free intraperitoneal air. Three supine views of the abdomen and pelvis demonstrate Mild to moderately dilated small bowel loops in the left upper quadrant. CT 06/19/2018 showed small bowel obstruction. Small amount of air is seen distally throughout the colon. There are degenerative changes of the spine. There is severe degenerative change of the right hip joint. There is a left hip prosthesis. An accompanying view of the chest demonstrates no acute infiltrate. IMPRESSION: Persistent mild to moderately dilated small bowel loops in the left upper quadrant. Electronically Signed by Nathan Yang MD 06/21/2018 10:35 P
[2018-06-21] MEDS: METOPROLOL TART 25 MG TABLET PO SCH ×2 (10:01→21:25)
[2018-06-21] MEDS: ENOXAPARIN 40 MG/0.4 ML SYRINGE (J1650) SC SCH (10:02)
[2018-06-21] MEDS ORDERED: SLF 3 ML SYR IV PRN (10:15)
[2018-06-21] MEDS: ceFAZolin SOD 1 GM in D5W MINI-BAG PLUS 50 ML IV SCH ×2 (10:18→18:37)
--- NOTE | 2018-06-21 10:50 | IPN ---
DATE: 06/21/2018 Ta is feeling well. He is tolerating clear liquids. He is not vomiting. He denies any abdominal pain. No recurrence of his umbilical hernia. The original plans were for surgical intervention during this hospitalization, so I consulted cardiology. After discussion with Dr. Betancourt and after more consideration, Dr. Betancourt feels the patient would benefit from a bariatric procedure such as gastric sleeve before undergoing surgery to prevent recurrence of the hernia. Urine culture has grown out some Proteus 100,000 colonies, fairly wide spread sensitivity. PHYSICAL EXAMINATION: 138/69. Pulse 66. Respiratory rate 19. 97% oxygen saturation. General Appearance: Lying in bed, resting comfortably, morbidly obese. Lungs clear. Heart regular rhythm. Abdomen soft. Nondistended. No masses. Mildly tender in the periumbilical area. Trace 1+ peripheral edema. Venous stasis. LABS: Electrolytes unremarkable. CBC unremarkable. Urine culture grew out Proteus. IMPRESSION: 1. Proteus urinary tract infection (UTI). IV Ancef ordered. 2. Small bowel obstruction secondary to incarcerated umbilical hernia. Plans are now for the patient to be discharged home once he is proven to tolerate his diet and have no recurrence of his hernia and then his primary care provider can refer him for bariatric intervention such as a gastric sleeve before addressing the hernia again. 3. Suspected obstructive sleep apnea (NETTE). Nocturnal oximetry is pending. He will need this addressed before discharge. 4. ? Coronary artery disease. Dr. Leach has seen the patient. He is waiting for records from [facility]. 5. Morbid obesity. He would definitely benefit from bariatric procedure, both to reduce morbidity and mortality considering his incredibly high body mass index (BMI). We did discuss this today. If he tolerates his diet and has no recurrence of bowel obstruction and his nocturnal oximetry is back and he does not need intervention for severe sleep apnea, he could probably be discharged in the next day or two.
[2018-06-21] MEDS ORDERED: NYSTATIN 100,000 UNITS/GM TOPICAL PWD 15 GM TOP PRN (11:15)
[2018-06-21 12:00] VITALS: BP 133/76
[2018-06-21 16:00] VITALS: BP 125/72
[2018-06-21] MEDS: SLF 3 ML SYR IV SCH ×2 (18:37→21:26)
[2018-06-21 20:00] VITALS: BP 137/68
[2018-06-21] MEDS: clonazePAM 0.5 MG TAB PO PRN (22:11)
[2018-06-21 23:59] VITALS: BP 143/66
[2018-06-22] VITALS (9 sets, daily range): BP systolic 125–150; BP diastolic 58–98; O2SAT 93–100
[2018-06-22] MEDS: ceFAZolin SOD 1 GM in D5W MINI-BAG PLUS 50 ML IV SCH ×3 (03:00→18:49)
[2018-06-22] MEDS: SLF 3 ML SYR IV SCH ×3 (05:48→20:32)
[2018-06-22 06:03] LABS: HEMOGLOBIN 12.4 g/dl (13.5-17.5); MEAN CORPUSCULAR HEMOGLOBIN 31.5 pg (27.0-33.0); MEAN CORPUSCULAR HGB CONC 33.5 g/dl (32.0-36.5); MEAN CORPUSCULAR VOLUME 93.9 fl (80.0-96.0); PLATELET COUNT, AUTOMATED 105 10^3/uL (150-450); RED BLOOD COUNT 3.94 10^6/uL (4.30-6.10); WHITE BLOOD COUNT 7.6 10^3/uL (4.0-10.0)
[2018-06-22 06:12] LABS: ALBUMIN 2.8 GM/DL (3.2-5.2); ALT/SGPT 18 U/L (12-78); BILIRUBIN,TOTAL 0.9 MG/DL (0.2-1.0); BLOOD UREA NITROGEN 9 MG/DL (7-18); CALCIUM LEVEL 7.2 MG/DL (8.8-10.2); CARBON DIOXIDE LEVEL 27 MEQ/L (21-32); CHLORIDE LEVEL 104 MEQ/L (98-107); CREATININE FOR GFR 0.71 MG/DL (0.70-1.30); GLOMERULAR FILTRATION RATE > 60.0 (>49); GLUCOSE, FASTING 95 MG/DL (70-100); POTASSIUM SERUM 3.3 MEQ/L (3.5-5.1); SODIUM LEVEL 137 MEQ/L (136-145); TOTAL PROTEIN 6.6 GM/DL (6.4-8.2)
[2018-06-22] MEDS: METOPROLOL TART 25 MG TABLET PO SCH ×2 (10:24→20:32)
[2018-06-22] MEDS: ENOXAPARIN 40 MG/0.4 ML SYRINGE (J1650) SC SCH (10:25)
[2018-06-22] MEDS: KCL 10MEQ/100ML SWI (KRUN) 10 MEQ in APPROPRIATE DILUENT 1 EA IV SCH ×2 (10:25→11:44)
--- NOTE | 2018-06-22 14:10 | NOCOX ---
DATE OF PROCEDURE: 06/21/2018 Patient was on room air for the nocturnal recording oximetry study. Patient's initial oxygen saturation was 96%. Patient's oxygen saturation varied from 100% to 80% at the lowest with a mean oxygen saturation of 95.5%. The total time spent with oxygen saturation less than 88% was 19 minutes and 36 seconds. On the oximetry report there were some episodes of variable desaturations, however, one appeared to be likely artifactual. IMPRESSION: Patient has an abnormal nocturnal oximetry study. He qualifies for nocturnal oxygen supplementation. There were a few episodes of variable desaturations, however, some appeared to be artifactual on the report. Cannot rule out obstructive sleep apnea.
--- NOTE | 2018-06-22 21:37 | IPN ---
DATE: 06/19/2018 The patient has been tolerating a clear liquid diet, was started on a regular diet earlier today and seems to be doing well with that. He has not had any nausea, no vomiting. Has had bowel movements and appears to have resolved his bowel obstruction. On his physical exam he is morbidly obese. Abdomen is nontender, nondistended and I still feel some omentum within this periumbilical hernia sac. However, otherwise I am not feeling any bowel as I had previously. IMPRESSION AND PLAN The patient has evidence of a recent incarceration of his periumbilical hernia. Given his morbid obesity with BMI of 64 I feel that his risk for recurrence of the hernia without weight-loss is extremely high. I do feel that he is somewhat more an urgent intervention necessary at this point. I do recommend that as his primary care/hospitalist has suggested that cardiology evaluate him and make recommendations concerning optimization for him. However, if they feel that he as an individual that can undergo additional treatment, we may also consider referring him on for bariatric surgery, possibly a sleeve resection. I do feel that sleeve resection is most likely the best option for him given his relative noncompliance with medications and his being a poor historian. At this point, however, it is reasonable to proceed with outpatient evaluation. If the primary team feels that they would like intervention proceeded on before his discharge, please contact me but otherwise I will see him as an outpatient in one to two weeks.
--- NOTE | 2018-06-22 21:54 | IPNPDOC ---
Text Note Date of Service The patient was seen on 06/22/18. NOTE SUBJECTIVE: Patient feels well today , says feeling hungrywants his diet adva nced, Had 2 bowel movements since yesterday. ambulating with a walker. No fever or chills, no chest pain or SOB , no abdominal pain , nausea or vomiting. PHYSICAL EXAMINATION: VITALS: As below. General Appearance: Lying in bed, resting comfortably, morbidly obese. HEENT: normocephalic atraumatic, moist mucus membranes, anicteric eyes. Neck: supple. Lungs clear to Auscultation, distant breath sounds. Heart: regular rhythm , no rub , murmur or gallop Abdomen: soft. hugely obese. Mildly tender in the periumbilical area. Bowel sounds present Extremities: Trace 1+ peripheral edema. Venous stasis. Labs and Radiology: Reviewed. ASSESSMENT and PLAN: This is a 63 year old patient with morbid obesity, hypertension, hypothyroid, anxiety, suspected NETTE, Periumbilical hernia presented to the ED with acute onset severe abdominal pain , nausea and vomiting. He underwent a CAT scan. The CAT scan revealed incarcerated periumbilical hernia with small bowel within this with evidence of small bowel obstruction. His incarcerated hernia was reduced by surgery in the ED then was admitted to the hospitalist service for his multiple medical commorbidities. Paln was for surgery if obstructive did not resolve with conservative management. Small bowel obstruction secondary to incarcerated umbilical hernia. resolved after successful reduction of hernia, NG tube, bowel rest. Plans are now for the patient to be discharged home once he is proven to tolerate his diet and have no recurrence of his hernia and then his primary care provider can refer him for bariatric intervention such as a gastric sleeve before addressing the hernia again. will advance diet. As may need intervention in the near future will also set up for preoperative cardiology evaluation similar episode will probably happen again and again until definitely treated. Proteus urinary tract infection (UTI). IV Ancef Suspected obstructive sleep apnea (NETTE). Nocturnal oximetry shows pateint will qualify for home oxygen will refer to pulmonary for sleep study. Coronary artery disease. Dr. Leach has seen the patient. He is waiting for records from [facility]. Morbid obesity. He would definitely benefit from bariatric procedure Hypertension on metoprolol DVT prophylaxis ordered. VS,Tayebone, I+O VS, Tayebone, I+O Laboratory Tests 06/22/18 05:20 Red Blood Count 3.94 L, Mean Corpuscular Volume 93.9, Mean Corpuscular Hemoglobin 31.5, Mean Corpuscular Hemoglobin Concent 33.5, Red Cell Distribution Width 13.1, Calcium Level 7.2 L, Aspartate Amino Transf (AST/SGOT) 20, Alanine Aminotransferase (ALT/SGPT) 18, Alkaline Phosphatase 95, Total Bilirubin 0.9, Total Protein 6.6, Albumin 2.8 L Vital Signs Date Time Temp Pulse Resp B/P (MAP) Pulse Ox O2 Delivery O2 Flow Rate FiO2 06/22/18 20:32 78 129/98 06/22/18 20:00 98.6 20 99 06/22/18 19:45 Room Air I&O- Last 24 Hours up to 6 AM 06/22/18 06:00 Intake Total 1960 ml Output Total 1045 ml Balance 915 ml SHAINA OLIVER MD Jun 22, 2018 21:54
[2018-06-22] MEDS: clonazePAM 0.5 MG TAB PO PRN (22:40)
[2018-06-23] VITALS (9 sets, daily range): BP systolic 125–137; BP diastolic 63–75; O2SAT 91–98
[2018-06-23] MEDS: ceFAZolin SOD 1 GM in D5W MINI-BAG PLUS 50 ML IV SCH ×2 (02:45→11:00)
[2018-06-23 05:04] LABS: HEMATOCRIT 37.7 % (42.0-52.0); HEMOGLOBIN 12.6 g/dl (13.5-17.5); MEAN CORPUSCULAR HGB CONC 33.4 g/dl (32.0-36.5); MEAN CORPUSCULAR VOLUME 95.7 fl (80.0-96.0); PLATELET COUNT, AUTOMATED 114 10^3/uL (150-450); RED BLOOD COUNT 3.94 10^6/uL (4.30-6.10)
[2018-06-23] MEDS: SLF 3 ML SYR IV SCH (05:18)
[2018-06-23 05:26] LABS: ALBUMIN 2.7 GM/DL (3.2-5.2); ALT/SGPT 21 U/L (12-78); BILIRUBIN,TOTAL 0.6 MG/DL (0.2-1.0); BLOOD UREA NITROGEN 7 MG/DL (7-18); CALCIUM LEVEL 7.4 MG/DL (8.8-10.2); CARBON DIOXIDE LEVEL 27 MEQ/L (21-32); CHLORIDE LEVEL 105 MEQ/L (98-107); CREATININE FOR GFR 0.77 MG/DL (0.70-1.30); GLOMERULAR FILTRATION RATE > 60.0 (>49); GLUCOSE, FASTING 94 MG/DL (70-100); POTASSIUM SERUM 3.3 MEQ/L (3.5-5.1); SODIUM LEVEL 140 MEQ/L (136-145); TOTAL PROTEIN 6.7 GM/DL (6.4-8.2)
[2018-06-23] MEDS ORDERED: POTASSIUM CHLORIDE 10 MEQ SR TABLET PO ONE (09:15)
[2018-06-23] MEDS: METOPROLOL TART 25 MG TABLET PO SCH (10:24)
[2018-06-23] MEDS: ENOXAPARIN 40 MG/0.4 ML SYRINGE (J1650) SC SCH (10:25)
[2018-06-23] MEDS ORDERED: LEVO500T3 PO (11:23)
[2018-06-23] MEDS ORDERED: METO1TAB87 PO (11:23)
[2018-06-23] MEDS ORDERED: NYAM10003 TOP (11:23)
--- NOTE | 2018-06-25 23:11 | DS.PDOC ---
Discharge Summary General Date of Admission Jun 19, 2018 at 09:03 Date of Discharge 06/23/18 Attending Physician: SHAINA OLIEVR MD Specialist/Consultants Involve: Asia Jacome,Juan Devi Discharge Summary PROCEDURES PERFORMED DURING STAY: [None]. DISCHARGE DIAGNOSES: SBO from incarcerated umbilical hernia UTI Morbid obesity Possible sleep apnea with long periods of nocturnal desaturations. Presribed nocturnal oxygen hypertension Hypothyroid Anxiety ? Coronary artery disease. COMPLICATIONS/CHIEF COMPLAINT: Incarcerated Hernia. HISTORY OF PRESENT ILLNESS: See History and Physical HOSPITAL COURSE: This is a 63 year old patient with morbid obesity, hypertension, hypothyroid, anxiety, suspected NETTE, Periumbilical hernia presented to the ED with acute onset severe abdominal pain , nausea and vomiting. He underwent a CAT scan. The CAT scan revealed incarcerated periumbilical hernia with small bowel within this with evidence of small bowel obstruction. His incarcerated hernia was reduced by surgery in the ED then was admitted to the hospitalist service for his multiple medical comorbidities. Plan was for surgery if obstructive did not resolve with conservative management. Small bowel obstruction secondary to incarcerated umbilical hernia. resolved after successful reduction of hernia, NG tube, bowel rest. Plans are now for the patient to be discharged home once he is proven to tolerate his diet and have no recurrence of his hernia and then his primary care provider can refer him for bariatric intervention such as a gastric sleeve before addressing the hernia again. will advance diet. As may need intervention in the near future will also set up for preoperative cardiology evaluation similar episode will probably happen again and again until definitely treated. Proteus urinary tract infection (UTI). levofloxacin Suspected obstructive sleep apnea (NETTE). Nocturnal oximetry shows patient will qualify for home oxygen will refer to pulmonary for sleep study. Coronary artery disease. Dr. Leach has seen the patient. He is waiting for records from [facility]. To me patient denied any cardiac issues. Can follow up with Dr Leach as out patient. Will anyway need preop cardiac clearance if the pateint wants to go for bariatric surgery. Morbid obesity. He would definitely benefit from bariatric procedure Hypertension on metoprolol DISCHARGE MEDICATIONS: Please see below. ALLERGIES: Please see below. PHYSICAL EXAMINATION ON DISCHARGE: VITAL SIGNS: Please see below. General Appearance: Lying in bed, resting comfortably, morbidly obese. HEENT: normocephalic atraumatic, moist mucus membranes, anicteric eyes. Neck: supple. Lungs clear to Auscultation, distant breath sounds. Heart: regular rhythm , no rub , murmur or gallop Abdomen: soft. hugely obese. Mildly tender in the periumbilical area. Bowel sounds present Extremities: Trace 1+ peripheral edema. Venous stasis. LABORATORY DATA: Please see below. ACTIVITY: [As tolerated]. DIET: Low Fat, low cholesterol DISPOSITION: 01 Home, Self-Care. DISCHARGE INSTRUCTIONS: Follow up PMD in [address] Leach for preoperative cardiology evaluation Referred to Dr Chappell for sleep study. ITEMS TO FOLLOWUP ON ON OUTPATIENT: Patient should be referred to bariatric surgeon DISCHARGE CONDITION: [Stable]. TIME SPENT ON DISCHARGE: Greater than 30 minutes. Vital Signs/I&Os Vital Signs Date Time Temp Pulse Resp B/P (MAP) Pulse Ox O2 Delivery O2 Flow Rate FiO2 06/23/18 10:24 67 137/63 06/23/18 08:00 96.7 18 98 06/23/18 06:00 Nasal Cannula 1.0 Microbiology Microbiology 06/19/18 Urine Culture - Final, Complete Proteus Mirabilis Discharge Medications Scheduled Furosemide (Furosemide) 40 Mg Tab, 40 MG PO DAILY, (Reported) PT STATES TAKING A FLUID PILL, CALLED [employer], LAST FILLED 03/09/18 FOR 30 DAYS Levofloxacin Hemihydrate (Levofloxacin) 500 Mg Tab, 1 TAB PO DAILY Metoprolol Tartrate (Metoprolol Tartrate) 25 Mg Tab, 25 MG PO BID Scheduled PRN Clonazepam (Clonazepam) 0.5 Mg Tab, 0.5 MG PO QHS PRN for ANXIETY, (Reported) Nystatin (Nyamyc) 100,000 Unit/Gm Pow, 0 DOSE TOP BIDP PRN for RASH Allergies Coded Allergies: No Known Allergies (Verified , 07/12/07) SHAINA OLIVER MD Jun 25, 2018 23:10
== END 2018-06-23 12:41 | disposition home or self-care (01) | DRG 394 ==
LOC: EDBD 01:54 → M ED 01:54 → M ED INP 09:03 → M PCU 13:57
PROVIDERS: ADMIT Family Medicine; ATTEND Internal Medicine Nephrology
DX: K42.0 Umbilical hernia with obstruction, without gangrene (principal); Z68.44 Body mass index [BMI] 60.0-69.9, adult; N39.0 Urinary tract infection, site not specified; E66.01 Morbid (severe) obesity due to excess calories; E11.9 Type 2 diabetes mellitus without complications; E03.9 Hypothyroidism, unspecified; F41.9 Anxiety disorder, unspecified; N20.0 Calculus of kidney; B96.4 Proteus (mirabilis) (morganii) as the cause of diseases classified elsewhere; G47.33 Obstructive sleep apnea (adult) (pediatric); M19.90 Unspecified osteoarthritis, unspecified site; Z87.891 Personal history of nicotine dependence; Z79.899 Other long term (current) drug therapy; Z90.49 Acquired absence of other specified parts of digestive tract

== ENCOUNTER → 2018-09-20 | Outpatient (CLI) | payer MEDICARE ==
[~2018-09-20] MED LIST changes: +FURO40TA2 PO; +HEPA1INJ23 SC; -HEPA50VL SC; +LEVO500T3 PO; +METO1TAB87 PO; -NORC1TAB4 PO; +NORC1TAB7 PO; +NYAM10003 TOP; +PATIENT COMMENTS
[2018-09-20 12:00] LABS: RUBELLA IgG QUALITATIVE IMMUNE (IMMUNE)
--- NOTE | 2018-09-21 02:46 | REP ---
Clinical: Reaction to tuberculin skin test . Comparison: 02/07/2010 . Technique: PA and lateral. Findings: The mediastinum and cardiac silhouette are normal. The lung fernandes are clear and without acute consolidation, effusion, or pneumothorax. The skeletal structures are intact and normal. Impression: 1. No acute cardiopulmonary process. Electronically Signed by Drew Rosario MD 09/21/2018 02:37 A
[2018-09-21 14:16] LABS: RUBEOLA IgG ANTIBODY >300.0 AU/mL (Immune >29.9)
== END ==
LOC: M LAB 10:29
PROVIDERS: ATTEND Nurse Practitioner Family
DX: Z11.59 Encounter for screening for other viral diseases (principal); R76.11 Nonspecific reaction to tuberculin skin test without active tuberculosis

== ENCOUNTER → 2018-10-01 | Outpatient (REF) | payer MEDICARE | LOC: M LAB REF 15:23 | PROVIDERS: ATTEND Internal Medicine | DX: R76.11 Nonspecific reaction to tuberculin skin test without active tuberculosis (principal) ==

== ENCOUNTER 2018-11-10 17:00 | Emergency (ER) | payer MEDICARE ==
[~2018-11-10] VITALS: Ht 170.2 cm; Wt 178.2 kg
[2018-11-10] MEDS ORDERED: AMBI10TA PO (17:40)
[2018-11-10] MEDS ORDERED: KETOROLAC 30 MG/ML VIAL (J1885) IV ONE (18:15)
[2018-11-10] MEDS ORDERED: ONDANSETRON 4MG/2ML VIAL (J2405) IV ONE (18:15)
[2018-11-10] MEDS ORDERED: NS 1,000 ML IV ONE (18:15)
[2018-11-10 18:38] LABS: BASO % 0.1 % (0.0-1.0); EOS % 0.1 % (0.0-3.0); HEMATOCRIT 42.3 % (42.0-52.0); HEMOGLOBIN 14.3 g/dl (13.5-17.5); LYMPH # 0.7 10^3/uL (1.5-4.5); LYMPH % 8.5 % (24.0-44.0); MEAN CORPUSCULAR HEMOGLOBIN 32.6 pg (27.0-33.0); MEAN CORPUSCULAR HGB CONC 33.8 g/dl (32.0-36.5); MEAN CORPUSCULAR VOLUME 96.4 fl (80.0-96.0); MONO # 0.4 10^3/uL (0.0-0.8); MONO % 5.2 % (0.0-5.0); NEUTROPHILS # 6.6 10^3/uL (1.8-7.7); NEUTROPHILS % 85.6 % (36.0-66.0); PLATELET COUNT, AUTOMATED 113 10^3/uL (150-450); RED BLOOD COUNT 4.39 10^6/uL (4.30-6.10); WHITE BLOOD COUNT 7.7 10^3/uL (4.0-10.0)
[2018-11-10 19:00] LABS: ALBUMIN 3.6 GM/DL (3.2-5.2); BILIRUBIN,DIRECT 0.3 MG/DL (0.0-0.2); BILIRUBIN,TOTAL 0.9 MG/DL (0.2-1.0); TOTAL PROTEIN 7.5 GM/DL (6.4-8.2)
[2018-11-10] MEDS ORDERED: ISOVUE-370 76% 100ML VIAL (Q9967) As Ordered ONE (19:32)
[2018-11-10 20:48] VITALS: BP 109/59
--- NOTE | 2018-11-10 21:17 | REPVR ---
EXAM: CT Abdomen and Pelvis With Contrast EXAM DATE/TIME: 11/10/2018 7:45 PM CLINICAL HISTORY: 63 years old, male; Abdominal pain; Additional info: Periumbilic pain/hernia/ ? bowel TECHNIQUE: Imaging protocol: Axial computed tomography images of the abdomen and pelvis with intravenous contrast. Coronal and sagittal reformatted images were created and reviewed. Radiation optimization: All CT scans at this facility use at least one of these dose optimization techniques: automated exposure control; mA and/or kV adjustment per patient size (includes targeted exams where dose is matched to clinical indication); or iterative reconstruction. Contrast material: ISOVUE 370; Contrast volume: 100 ml; Contrast route: IV; COMPARISON: CT ABD/PEL W/IV ORAL CONTRAS 06/19/2018 4:33 AM FINDINGS: Liver: There is a diffuse decrease in hepatic parenchymal density, consistent with fatty infiltration. Gallbladder and bile ducts: There has been a cholecystectomy. Pancreas: Normal. No ductal dilation. Spleen: Normal. No splenomegaly. Adrenals: Normal. No mass. Kidneys and ureters: Redemonstration of a right renal staghorn calculus. No significant delay in excretion of iodinated contrast. Stomach and bowel: Mild diverticulosis is present in the distal colon. No diverticulitis. Appendix: No evidence of appendicitis. Intraperitoneal space: Normal. No free air. No significant fluid collection. Vasculature: The aorta demonstrates mild atherosclerotic calcification. Lymph nodes: Normal. No enlarged lymph nodes. Bladder: Unremarkable as visualized. Reproductive: Unremarkable as visualized. Bones/joints: Moderate central spinal stenosis at L3-4, moderate to severe central spinal stenosis at L4-5. Mild anterolisthesis of L4 on L5. Marked degenerative changes and subluxation of the right hip. Status post total left hip replacement. Soft tissues: Large umbilical hernia containing small bowel loops protrudes through a narrowed defect in anterior abdominal wall at the umbilicus measuring 3.2 cm. Boggy edematous bowel loops and fluid demonstrated within the hernia sac consistent with incarceration. Dilated afferent and efferent herniated small bowel loops suggests small bowel obstruction and possible postobstructive ischemia. IMPRESSION: 1. There is a diffuse decrease in hepatic parenchymal density, consistent with fatty infiltration. 2. There has been a cholecystectomy. 3. Mild diverticulosis is present in the distal colon. No diverticulitis. 4. Large umbilical hernia containing small bowel loops protrudes through a narrowed defect in anterior abdominal wall at the umbilicus measuring 3.2 cm. Boggy edematous bowel loops and fluid demonstrated within the hernia sac consistent with incarceration. Dilated afferent and efferent herniated small bowel loops suggests small bowel obstruction and possible postobstructive ischemia. Electronically signed by: David Cabral On 11/10/2018 21:17:08 PM
[2018-11-11] MEDS ORDERED: ACET-683 PO (15:03)
[2018-11-11] MEDS ORDERED: ONDANSETRON 4MG/2ML VIAL (J2405) As Ordered ONE ×2 (15:38→16:47)
[2018-11-11] MEDS ORDERED: LIDOCAINE 2% INJ 100 MG/5 ML SDV (FOR ANES.) As Ordered ONE (15:38)
[2018-11-11] MEDS ORDERED: dexameTHASONE 4 MG/ML 1ML VIAL (J1100) As Ordered ONE (15:38)
[2018-11-11] MEDS ORDERED: SUGAMMADEX SODIUM 500 MG/5 ML VIAL (BRIDION) As Ordered ONE (15:38)
[2018-11-11] MEDS ORDERED: SUCCINYLCHOLINE 100 MG/5 ML SYRINGE (J0330) As Ordered ONE (15:38)
[2018-11-11] MEDS ORDERED: PROPOFOL 200 MG/20 ML VIAL As Ordered ONE (15:38)
[2018-11-11] MEDS ORDERED: ROCURONIUM BROMIDE 50 MG/5 ML VIAL As Ordered ONE (15:38)
[2018-11-11] MEDS ORDERED: KETAMINE HCL 200 MG/20 ML VIAL As Ordered ONE (15:39)
[2018-11-11] MEDS ORDERED: fentaNYL 250 MCG/5 ML INJECTION (J3010) As Ordered ONE (15:39)
[2018-11-11] MEDS ORDERED: MIDAZOLAM INJ 2 MG/2 ML VIAL (J2250) As Ordered ONE (15:49)
--- NOTE | 2018-11-16 09:56 | CR ---
DATE OF CONSULTATION: 11/10/2018 HISTORY OF PRESENT ILLNESS: The patient 63-year-old male patient of Dr. Giles with a known umbilical hernia. He presented to the emergency room with complaint of increasing lower abdominal pain. In the ER he was found to normal vitals, normal labs, including a normal lactic acid; however, his imaging showed possible inflammation and small bowel obstruction secondary to this incarcerated hernia. The ER was unable to reduce it so they called me for evaluation. When I examined him, he denies any nausea or vomiting. No fevers or chills. No changes in bowel movements. No problems with urinating. His hernia has not changed in size compared to the past, but he does have some pain there. He also said that he has already seen a surgeon for it and is planning to have it repaired in the next couple of weeks. No recent changes in diet or medications. No recent trauma to the abdomen. No other symptoms other than just some increased pain at the belly button. PAST MEDICAL HISTORY: Morbid obesity. Diabetes. Hypothyroidism. Carpal tunnel. Sleep apnea. Arthritis. PAST SURGICAL HISTORY Cholecystectomy. ALLERGIES: None. MEDICATIONS: Please see med rec. SOCIAL HISTORY: Denies current drug, alcohol, tobacco abuse. FAMILY HISTORY: Noncontributory. REVIEW OF SYSTEMS: Pertinent positives and negatives as stated in the HPI. PHYSICAL EXAMINATION: General: Alert and oriented times three. No acute distress. Vitals: Temperature 97.6, pulse 67, respirations 19, blood pressure 136/63, pulse ox 98% on room air. HEENT: Pupils equal, round and reactive to light and accommodation. Heart: S1-S2 regular rate and rhythm. Lungs: Clear to auscultation bilaterally. Abdomen: Soft, very obese, nondistended. Slight tenderness to palpation around the umbilicus. There was a large umbilical hernia that is unable to be reduced at this time, but it is very soft and compressible. No redness or skin changes around it. Extremities: Bilateral lower extremity pitting edema. LABORATORY DATA: White count 7.7, hemoglobin 14.3, platelets 113, lactic acid 0.9. IMAGING STUDIES: CT shows mild diverticulosis, large umbilical hernia containing small bowel loops through a 3.2 cm defect showing some inflammation of the bowel loops, both afferent and efferent. ASSESSMENT/PLAN: The patient is a 63-year-old male with a large umbilical hernia containing a loop of small bowel. I have reviewed the images and it does not appear to be obstructed. The hernia on exam is soft, does not appear to be strangulated. It is nonreducible but I do not feel that it is causing any bowel obstruction at this time. Recommendation is to use ice and Motrin to help with the inflammation and to continue with planned surgery with Dr. Judd as an outpatient. I believe that is being planned to be performed robotically in the near future. If his pain should worsen or he starts to develop nausea or vomiting, he should return to the ER for reexamination.
[2018-11-16] MEDS ORDERED: ZOLP5TAB (14:47)
== END 2018-11-10 23:33 | disposition home or self-care (01) ==
LOC: EDBD 17:00 → M ED 17:00
DX: K42.0 Umbilical hernia with obstruction, without gangrene (principal); R11.2 Nausea with vomiting, unspecified; E66.01 Morbid (severe) obesity due to excess calories; Z68.44 Body mass index [BMI] 60.0-69.9, adult; E11.9 Type 2 diabetes mellitus without complications; E03.9 Hypothyroidism, unspecified; G47.30 Sleep apnea, unspecified; M19.90 Unspecified osteoarthritis, unspecified site; M54.9 Dorsalgia, unspecified; F17.210 Nicotine dependence, cigarettes, uncomplicated; Z79.899 Other long term (current) drug therapy

== ENCOUNTER 2018-11-11 10:42 | Inpatient (IN) | payer MEDICARE ==
[~2018-11-11] VITALS: Ht 167.6 cm; Wt 177.3 kg
[2018-11-11] MEDS ORDERED: NS 1,000 ML IV SCH (11:35)
[2018-11-11] MEDS ORDERED: ONDANSETRON 4MG/2ML VIAL (J2405) IV ONE (11:45)
[2018-11-11] MEDS: MORPHINE 4 MG/ML 1ML VIAL/SYRINGE (J2270) IV PRN ×2 (12:10→14:24)
[2018-11-11 12:28] LABS: BASO % 0.1 % (0.0-1.0); HEMATOCRIT 42.7 % (42.0-52.0); HEMOGLOBIN 14.2 g/dl (13.5-17.5); LYMPH # 0.8 10^3/uL (1.5-4.5); LYMPH % 9.7 % (24.0-44.0); MEAN CORPUSCULAR HGB CONC 33.3 g/dl (32.0-36.5); MEAN CORPUSCULAR VOLUME 96.2 fl (80.0-96.0); MONO # 0.8 10^3/uL (0.0-0.8); MONO % 8.8 % (0.0-5.0); NEUTROPHILS # 6.9 10^3/uL (1.8-7.7); NEUTROPHILS % 80.8 % (36.0-66.0); PLATELET COUNT, AUTOMATED 122 10^3/uL (150-450); RED BLOOD COUNT 4.44 10^6/uL (4.30-6.10); WHITE BLOOD COUNT 8.6 10^3/uL (4.0-10.0)
[2018-11-11 12:55] LABS: ALBUMIN 3.5 GM/DL (3.2-5.2); ALT/SGPT 20 U/L (12-78); BILIRUBIN,DIRECT 0.3 MG/DL (0.0-0.2); BILIRUBIN,TOTAL 0.9 MG/DL (0.2-1.0); BLOOD UREA NITROGEN 14 MG/DL (7-18); CARBON DIOXIDE LEVEL 28 MEQ/L (21-32); CHLORIDE LEVEL 107 MEQ/L (98-107); CREATININE FOR GFR 0.86 MG/DL (0.70-1.30); GLOMERULAR FILTRATION RATE > 60.0 (>49); GLUCOSE, FASTING 112 MG/DL (70-100); LIPASE 47 U/L (73-393); POTASSIUM SERUM 4.4 MEQ/L (3.5-5.1); SODIUM LEVEL 142 MEQ/L (136-145); TOTAL PROTEIN 7.3 GM/DL (6.4-8.2)
--- NOTE | 2018-11-11 13:15 | REP ---
Clinical: Abdominal pain with hernia. Rule out obstruction. Technique: Axial noncontrast images from the lung bases to the pubic symphysis with coronal and sagittal re-formations. Comparison: 11/10/2018 Findings: Dilated fluid-filled small bowel is appreciated within the abdomen and pelvis as well as extending into a large periumbilical hernia containing bowel, mesenteric fat and associated stranding. There are suggestions for a collapsed efferent distal ileum loop extending from the hernia sac to the terminal ileum and cecum along with essentially collapsed relatively normal appearance to the colon. Findings suggest incarcerated umbilical hernia with multiple loops of small bowel causing small bowel obstruction. Scattered colonic and sigmoid diverticula noted without acute diverticulitis. No free air. No free fluid. No adenopathy. Liver, spleen, pancreas, and bilateral adrenal glands are relatively normal / stable. Kidneys demonstrate chronic changes and contrast administration precludes evaluation for nephrolithiasis. Pelvis demonstrates contrast filled bladder and findings to suggest prior prostatectomy. Further evaluation of the pelvis is limited due to beam-hardening artifact from left hip prosthesis. Abdominal aorta without aneurysm. Skeletal structures demonstrate degenerative changes without focal osseous abnormality. Lung bases are essentially clear. Impression: 1. Large periumbilical ventral hernia with dilated small bowel and exiting collapsed distal ileum to the ileocecal valve suggests incarcerated hernia with associated bowel obstruction. No free air. No free fluid. Electronically Signed by Drew Rosario MD 11/11/2018 01:07 P
[2018-11-11] MEDS ORDERED: KETOROLAC 30 MG/ML VIAL (J1885) IV PRN (14:45)
[2018-11-11] MEDS ORDERED: MORPHINE 4 MG/ML 1ML VIAL/SYRINGE (J2270) IV PRN (14:45)
[2018-11-11] MEDS ORDERED: ACET-683 PO (15:03)
[2018-11-11] MEDS ORDERED: BUPIVACAINE HCL 0.25% 30 ML VIAL As Ordered ONE (15:15)
[2018-11-11] MEDS ORDERED: BUPIVACAINE LIPOSOME/PF 1.3% 20ML VIAL (13.3MG/ML)(EXPAREL)(C9290 PER1MG) As Ordered ONE (15:16)
[2018-11-11] MEDS ORDERED: BUPIVACAINE HCL 0.25% 10 ML VIAL As Ordered ONE (18:16)
[2018-11-11] MEDS: LR 1,000 ML IV SCH ×2 (20:45→22:39)
[2018-11-11] MEDS ORDERED: ACETAMINOPHEN 500 MG TAB PO PRN (21:00)
[2018-11-11] MEDS ORDERED: ONDANSETRON 4MG/2ML VIAL (J2405) IV PRN ×2 (21:00→22:00)
[2018-11-11] MEDS ORDERED: MORPHINE 4 MG/ML 1ML VIAL/SYRINGE (J2270) As Ordered ONE (21:18)
[2018-11-11 21:45] VITALS: BP 133/68
[2018-11-11] MEDS ORDERED: MORPHINE 10 MG/ML 1ML VIAL (J2270) IV PRN (22:00)
[2018-11-11] MEDS ORDERED: METOCLOPRAMIDE INJ 10MG/2ML VIAL (J2765) IV PRN (22:00)
[2018-11-11] MEDS ORDERED: PERCOCET 5MG/325MG TAB PO PRN (22:00)
[2018-11-11] MEDS ORDERED: fentaNYL 100 MCG/2 ML INJECTION (J3010) IV PRN (22:00)
[2018-11-11] MEDS ORDERED: LR 1,000 ML IV SCH (22:00)
[2018-11-11 22:15] VITALS: BP 138/73
[2018-11-11] MEDS: PANTOPRAZOLE 40MG INJ (PROTONIX) (C9113) IV SCH (22:33)
[2018-11-12 06:00] VITALS: BP 103/57
[2018-11-12 08:21] LABS: BASO % 0.2 % (0.0-1.0); HEMATOCRIT 37.7 % (42.0-52.0); HEMOGLOBIN 12.4 g/dl (13.5-17.5); LYMPH % 8.8 % (24.0-44.0); MEAN CORPUSCULAR HEMOGLOBIN 31.7 pg (27.0-33.0); MEAN CORPUSCULAR HGB CONC 32.9 g/dl (32.0-36.5); MEAN CORPUSCULAR VOLUME 96.4 fl (80.0-96.0); MONO % 9.4 % (0.0-5.0); NEUTROPHILS # 8.9 10^3/uL (1.8-7.7); NEUTROPHILS % 81.1 % (36.0-66.0); PLATELET COUNT, AUTOMATED 113 10^3/uL (150-450); RED BLOOD COUNT 3.91 10^6/uL (4.30-6.10)
[2018-11-12 08:53] LABS: BLOOD UREA NITROGEN 13 MG/DL (7-18); CARBON DIOXIDE LEVEL 29 MEQ/L (21-32); CHLORIDE LEVEL 109 MEQ/L (98-107); GLOMERULAR FILTRATION RATE > 60.0 (>49); GLUCOSE, FASTING 101 MG/DL (70-100); POTASSIUM SERUM 4.2 MEQ/L (3.5-5.1); SODIUM LEVEL 143 MEQ/L (136-145)
[2018-11-12 10:00] VITALS: BP 116/66
[2018-11-12] MEDS: LR 1,000 ML IV SCH ×2 (11:33→22:04)
[2018-11-12 14:00] VITALS: BP 116/62
[2018-11-12] MEDS: ENOXAPARIN 40 MG/0.4 ML SYRINGE (J1650) SC SCH (14:22)
[2018-11-12] MEDS: PANTOPRAZOLE 40MG INJ (PROTONIX) (C9113) IV SCH (14:22)
--- NOTE | 2018-11-12 17:03 | IPN ---
DATE: 11/12/2018 HISTORY: Patient was admitted yesterday with an incarcerated umbilical hernia with a bowel obstruction. He underwent laparoscopic surgery for reduction of his hernia. This contained several slightly hemorrhagic loops of small bowel, but these appeared viable. A repair of his hernia was performed with primary closure of the defect and placement of a 15 cm Parietex patch laparoscopically. He has done very well so far postoperatively. Vital signs show that he has been afebrile since a low grade temperature of 100.1 last evening. His pulse is in the 60s to low 70s and his blood pressure is good, with a room air saturation that is in the low 90s. Intake and output shows that yesterday he has 1300 recorded in with 140 recorded out, though I believe this significantly understates his intravenous (IV) intake. He had 105 mL recorded out of his abdominal wall drain today so far. PHYSICAL EXAMINATION: Patient is alert and comfortable. Heart exam shows a regular rhythm and he is not tachycardiac. The lungs are clear. The abdomen is markedly obese. He does have some faint bowel sounds present. His Mark drain has a small amount of bloody fluid in the bulb. His dressings are dry. Laboratory studies show a white count today of 11, hemoglobin 12, hematocrit 38 and a platelet count of 113,000. Differential count shows 81% neutrophils, 9% lymphocytes and 9% monocytes. Chemistry profile shows a sodium of 143, potassium 4.2, chloride 109, CO2 of 29, BUN of 13, creatinine 0.9 and a glucose of 101. IMPRESSION: Patient is doing very well so far from his laparoscopic repair of his umbilical hernia with a bowel obstruction. He has passed some flatus today, but has not had a bowel movement. He denies any abdominal pain. PLAN: Patient 's nasogastric tube will be removed. He will be kept nothing by mouth for now except for a few ice chips. If he does well, we will begin clear liquids as early as later this afternoon or evening. He is encouraged to be up out of bed and will be started on some subcutaneous Lovenox for deep venous thrombosis (DVT) prophylaxis.
[2018-11-12 18:00] VITALS: BP 121/56
--- NOTE | 2018-11-12 19:25 | RO ---
DATE OF PROCEDURE: 11/11/2018 PREOPERATIVE DIAGNOSIS: Incarcerated umbilical hernia with small bowel obstruction. POSTOPERATIVE DIAGNOSIS: Incarcerated umbilical hernia with small bowel obstruction. PROCEDURE PERFORMED: Laparoscopic repair of incarcerated umbilical hernia with release of small bowel obstruction with placement of 15 cm Parietex patch. SURGEON: Dr. Steve Judd INSTRUCTOR DECORATING: Nathan Patterson, MS III ANESTHESIA: General. INDICATIONS FOR PROCEDURE: The patient is a 63-year-old man with morbid obesity and a longstanding umbilical hernia. He had presented in June with a transient incarceration, which was reduced. He has been seen in the office in followup and plans are underway for a scheduled surgical repair. He presented to the emergency room (ER) on November 10, [address] was [address] by Dr[address] Cunningham for some abdominal pain and vomiting. He believed that he got the hernia reduced, and the patient was discharged home. He returned again on November 11, 2018 now with a nonreducible umbilical hernia with signs of a bowel obstruction and he is now for urgent repair. DESCRIPTION OF PROCEDURE: The patient was brought to the operating room and placed on the table. A nasogastric tube was already in place. He was placed under general endotracheal anesthesia. Sequential stockings were applied. The patient's abdomen was prepped and draped in a sterile fashion. Initial entry to the abdomen was in the right upper quadrant. 0.25% Marcaine was infiltrated at the trocar sites as needed. A short incision was made and a Veress needle was inserted. After a positive hanging drop test, the abdomen was inflated with carbon dioxide gas. The patient's inflation pressures remained somewhat elevated in the 12-14 mmHg range likely related to his marked abdominal obesity. A 5 mm port was placed through the abdominal wall and the laparoscope was placed. Initial examination showed abundant fibrofatty tissue. The patient was tilted slightly to Trendelenburg to better expose his umbilical area. There was some omentum adherent up into the defect as well as some bowel appearing to extend into the opening. A second 5 mm trocar was placed lower in the right lower quadrant and a third was placed higher into the epigastrium. The patient was tilted further to a Trendelenburg position and rolled somewhat to the left to better utilize the ports on the right side. The Harmonic scalpel was used to divide some attachments of omentum along the edge of the hernia defect. This better exposed some loops of small bowel that extended up into the hernia. With gentle traction using a grasper, perhaps a foot to a foot and a half of small bowel was reduced from within the hernia. Some of this was mildly hemorrhagic and bruised in appearance but all appeared to be viable. There was some free lightly hemorrhagic fluid within the hernia as well, which was released into the abdomen. It was possible to free all bowel from within the hernia. The defect appeared to be approximately 5-6 cm in diameter. I then used the Harmonic scalpel to peel the preperitoneal fat and peritoneum away on both sides of the midline to expose the underlying fascia for better attachment of the piece of prosthetic mesh. To better approach the right side of the abdominal wall, two trocars were placed on the left and the patient was rolled to the right to allow better exposure. Once the abdominal wall had been thus prepared, the patient was returned to a flat position and the abdomen was deflated. An approximately 7 cm transverse incision was made just above the umbilicus. This was deepened into the subcutaneous tissues using cautery dissection. The patient's hernia sac was entered. There was some omentum, which had been adherent up into the sac, and this was removed and sent as hernia contents. The hernia sac was freed from the fascia circumferentially at the level of the fascia. Hemostasis was ensured with electrocautery. The fascial defect was then closed transversely with interrupted simple sutures of 1-0 Ethibond. In the center of the defect, a suture was placed. We took a small bite of the center of a 15 cm round Parietex patch. This was reference code [id number]. This was lot number [id number]. The mesh was reduced into the abdomen and the suture tied down. The abdomen was then reinflated. The umbilical wound was packed with a moistened lap pad. The mesh was then spread on the anterior abdominal wall. It was clear that it would be impossible to place the mesh beneath the loosened peritoneum and preperitoneal fat on each side of the midline, so ultimately this was transected and removed down both sides of the wound and subsequently placed in an Endopouch and removed. The mesh was then spread over the anterior abdominal wall. It was necessary to tilt the patient into more of a Trendelenburg position to get the small bowel out of the way. Three SecureStrap tackers or a total of approximately 75 tacks were then used to fix the mesh securely over the anterior abdominal wall with tacks circumferentially around the edge of the mesh and also within the more interior portions of the mesh. Ultimately this seemed to give a very nice application of the mesh to the anterior abdominal wall. The preperitoneal fat and peritoneum was removed by placing a 10 mm port in the right upper quadrant with an Endopouch and then removing the specimen from the pouch using a Amrita clamp so that the fascial defect did not have to be significantly expanded. The abdomen was vented of gas, and he was placed flat. 20 mL of Exparel was mixed with 20 mL of 0.25% Marcaine, and this was infiltrated around all of his incisions. The umbilical skin was tacked down to the abdominal fascia with two simple sutures of #3-0 Vicryl. There was a small amount of oozing within the umbilical wound and a #19-Marshallese Mark drain was placed through a stab wound on the left and into this wound. The drain was sutured to the skin with #2-0 silk. The wounds were then all closed with buried Vicryl sutures and Steri-Strips. A chlorhexidine gluconate OpSite was placed at the drain site, and this goes to was connected to a Josh-Avilez bulb. Light dressings were applied to all the other incisions. The patient was awakened in the operating room, extubated and moved to the recovery room in stable condition. LYNDA
[2018-11-12 22:00] VITALS: BP 122/59
[2018-11-13] VITALS (8 sets, daily range): BP systolic 104–123; BP diastolic 59–64
[2018-11-13] MEDS: LR 1,000 ML IV SCH (09:57)
[2018-11-13] MEDS: ENOXAPARIN 40 MG/0.4 ML SYRINGE (J1650) SC SCH (09:57)
--- NOTE | 2018-11-13 14:13 | IPN ---
DATE: 11/13/2018 HISTORY: Patient is now postop day #2 from repair of his incarcerated umbilical hernia using Parietex mesh. His nasogastric (NG) tube was discontinued yesterday and he was started on some sips of liquids yesterday evening. He has been having some clears today with no problems. He reports having some flatus. He has voided. He denies any bowel movement yet. Vital signs show that he has been afebrile over the fast past 24 hours with a pulse around 70 and a good blood pressure. Intake and output show that he has had excellent intake of liquids today. His urine output is good. His drain yesterday had a 190 mL out and only 40 recorded this morning. PHYSICAL EXAMINATION: Patient is lying quietly in bed. Heart exam shows a regular rhythm. The abdomen is markedly obese, but soft and without significant tenderness. His various dressings are clean and dry and the drain has a small amount of bloody drainage. IMPRESSION: Patient is making good progress. Because of the hemorrhagic bowel from within his incarcerated hernia, I have gone little slower on advancing his diet. I will put him on regular food today and if he tolerates this well, he can go home tomorrow.
[2018-11-13] MEDS: PANTOPRAZOLE 40MG TAB (PROTONIX) PO SCH (16:55)
[2018-11-14 02:00] VITALS: BP 110/58
[2018-11-14 06:00] VITALS: BP 114/64
[2018-11-14 07:14] LABS: BASO % 0.3 % (0.0-1.0); EOS # 0.2 10^3/uL (0.0-0.50); EOS % 3.2 % (0.0-3.0); HEMATOCRIT 36.5 % (42.0-52.0); HEMOGLOBIN 12.1 g/dl (13.5-17.5); LYMPH # 1.4 10^3/uL (1.5-4.5); LYMPH % 19.3 % (24.0-44.0); MEAN CORPUSCULAR HEMOGLOBIN 31.7 pg (27.0-33.0); MEAN CORPUSCULAR HGB CONC 33.2 g/dl (32.0-36.5); MEAN CORPUSCULAR VOLUME 95.5 fl (80.0-96.0); MONO # 0.9 10^3/uL (0.0-0.8); MONO % 12.6 % (0.0-5.0); NEUTROPHILS # 4.7 10^3/uL (1.8-7.7); NEUTROPHILS % 63.7 % (36.0-66.0); RED BLOOD COUNT 3.82 10^6/uL (4.30-6.10); WHITE BLOOD COUNT 7.4 10^3/uL (4.0-10.0)
[2018-11-14 07:50] LABS: PLATELET COUNT, AUTOMATED 93 10^3/uL (150-450)
[2018-11-14 07:53] LABS: ALBUMIN 2.6 GM/DL (3.2-5.2); ALT/SGPT 14 U/L (12-78); BILIRUBIN,TOTAL 0.9 MG/DL (0.2-1.0); BLOOD UREA NITROGEN 10 MG/DL (7-18); CALCIUM LEVEL 7.3 MG/DL (8.8-10.2); CARBON DIOXIDE LEVEL 27 MEQ/L (21-32); CHLORIDE LEVEL 106 MEQ/L (98-107); CREATININE FOR GFR 0.64 MG/DL (0.70-1.30); GLOMERULAR FILTRATION RATE > 60.0 (>49); GLUCOSE, FASTING 91 MG/DL (70-100); POTASSIUM SERUM 3.4 MEQ/L (3.5-5.1); SODIUM LEVEL 139 MEQ/L (136-145); TOTAL PROTEIN 6.2 GM/DL (6.4-8.2)
[2018-11-14] MEDS: PANTOPRAZOLE 40MG TAB (PROTONIX) PO SCH (08:54)
[2018-11-14] MEDS: ENOXAPARIN 40 MG/0.4 ML SYRINGE (J1650) SC SCH (08:54)
[2018-11-14 10:00] VITALS: BP 120/66
[2018-11-14 14:00] VITALS: BP 119/67
--- NOTE | 2018-11-14 19:49 | IPN ---
DATE: 11/14/2018 HISTORY: Patient is postop day #3 from laparoscopic repair of his incarcerated umbilical hernia with small-bowel obstruction using mesh. He has done very well since surgery. He is using no pain medications. He has been advanced to a regular diet and is tolerating this well. His abdominal wall drain at the umbilicus drained only 30 mL this morning. Vital signs show that he had a maximum temperature (T-max) of 100.4 yesterday afternoon at about 2 o'clock. His pulse is in the 60s and 70s and is blood pressure is good. Intake and output showed 1980 in with 1100 out yesterday. PHYSICAL EXAMINATION: Patient is alert and comfortable. His abdomen is obese and soft. His incisions are all clean. There is no sign of hematoma or infection at the umbilicus. The drain has a minimal amount of serosanguineous fluid. He has active bowel sounds and the abdomen is soft. Laboratory studies today showed a white count of 7, hemoglobin 12, hematocrit 36 and a platelet count of 93,000. His differential count shows 64% neutrophils, 19% lymphocytes and 13% monocytes. Chemistry profile shows no concerning abnormalities with a minimal depression of his potassium to 3.4. IMPRESSION: Patient is doing very well following surgery and appears ready for discharge. PLAN: The patient's Mark drain was removed and he was instructed regarding local wound care. He will be allowed to shower starting tomorrow. He was counseled to avoid any strenuous physical activity. He can take a diet as tolerated. He will be discharged from the hospital today. He should follow up with me in the office in 7-10 days or call sooner for any problems. He will not be provided with any new prescriptions.
[2018-11-16] MEDS ORDERED: ZOLP5TAB (14:47)
== END 2018-11-14 15:15 | disposition home or self-care (01) | DRG 354 ==
LOC: M ED 10:42 → EDBD 10:42 → M SDC 14:39 → M MS5PR 21:40 → M SDC 11-12 13:14
PROVIDERS: ADMIT Surgery; ATTEND Surgery
PROC: 0WUF4JZ Supplement Abdominal Wall with Synthetic Substitute, Percutaneous Endoscopic Approach (ICD-10-PCS; principal; 2018-11-11 14:43)
DX: K42.0 Umbilical hernia with obstruction, without gangrene (principal); Z68.44 Body mass index [BMI] 60.0-69.9, adult; E66.01 Morbid (severe) obesity due to excess calories; F41.9 Anxiety disorder, unspecified; G47.30 Sleep apnea, unspecified; R11.2 Nausea with vomiting, unspecified; E11.9 Type 2 diabetes mellitus without complications; E03.9 Hypothyroidism, unspecified; M19.90 Unspecified osteoarthritis, unspecified site; M54.9 Dorsalgia, unspecified; F17.210 Nicotine dependence, cigarettes, uncomplicated; Z79.899 Other long term (current) drug therapy

== ENCOUNTER → 2019-07-06 | Outpatient (CLI) | payer MEDICARE ==
[~2019-07-06] MED LIST changes: +ACET-683 PO; +CLON0.5T2 PO; -CLON0.5T8 PO; +ZOLP5TAB
--- NOTE | 2019-07-06 11:14 | REP ---
ULTRASOUND ABDOMINAL WALL: Real-time sonographic evaluation of the anterior abdominal wall performed in the midline just above the umbilicus. There is a defect in the anterior abdominal wall in the midline at that location. Diameter is approximately 6 cm. Intraperitoneal fat and bowel loops extend into the anterior abdominal wall through this defect. The hernia is partially reducible with transducer pressure. IMPRESSION: Supraumbilical midline anterior abdominal wall hernia containing bowel. The approximate diameter of the defect is 6 cm. Electronically Signed by Nathan Yang MD 07/06/2019 03:13 P
== END ==
LOC: M RAD 08:34
PROVIDERS: ATTEND Surgery
DX: R10.9 Unspecified abdominal pain (principal)

== ENCOUNTER 2020-01-13 16:29 | Inpatient (IN) | payer MEDICARE ==
[~2020-01-13] VITALS: Ht 165.1 cm; Wt 182.6 kg
[~2020-01-13 16:29] MED LIST changes: -MERO1INJ IV; +MERO1VIA3 IV; -ZOLP5TAB; +ZOLP5TAB PO
[2020-01-13] MEDS ORDERED: SERT50TA29 PO (17:06)
--- NOTE | 2020-01-13 17:13 | REPVR ---
PROCEDURE INFORMATION: Exam: XR Chest, 1 View Exam date and time: 01/13/2020 4:42 PM Age: 64 years old Clinical indication: Chest pain; Type not specified TECHNIQUE: Imaging protocol: XR of the chest Views: 1 view. COMPARISON: CR Chest, 2 view PA, Lat 09/20/2018 10:57 AM FINDINGS: Lungs: Unremarkable. No consolidation. Pleural space: Unremarkable. No pleural effusion. No pneumothorax. Heart/Mediastinum: Unremarkable. No cardiomegaly. Bones/joints: Unremarkable. IMPRESSION: No acute findings. Electronically signed by: David Cabral On 01/13/2020 17:13:16 PM
[2020-01-13 17:15] LABS: BASO % 0.3 % (0.0-1.0); EOS # 0.1 10^3/uL (0.0-0.5); HEMATOCRIT 41.6 % (42.0-52.0); HEMOGLOBIN 13.5 g/dl (13.5-17.5); LYMPH # 0.8 10^3/uL (1.5-5.0); LYMPH % 9.4 % (24.0-44.0); MEAN CORPUSCULAR HEMOGLOBIN 31.5 pg (27.0-33.0); MEAN CORPUSCULAR HGB CONC 32.5 g/dl (32.0-36.5); MONO # 1.1 10^3/uL (0.0-0.8); MONO % 12.7 % (0.0-5.0); NEUTROPHILS # 6.6 10^3/uL (1.5-8.5); NEUTROPHILS % 75.9 % (36.0-66.0); RED BLOOD COUNT 4.29 10^6/uL (4.30-6.10); WHITE BLOOD COUNT 8.7 10^3/uL (4.0-10.0)
[2020-01-13 17:19] LABS: PLATELET COUNT, AUTOMATED 94 10^3/uL (150-450)
[2020-01-13 17:26] LABS: INR 1.02; PROTHROMBIN TIME 13.6 SECONDS (11.8-14.0)
[2020-01-13 17:27] LABS: PARTIAL THROMBOPLASTIN TIME 31.6 SECONDS (25.0-38.4)
[2020-01-13] MEDS ORDERED: ASPIRIN 81 MG CHEW TABLET PO ONE (17:30)
[2020-01-13] MEDS ORDERED: NITROGLYCERIN 0.4 MG SUBL TABLET SL PRN (17:30)
[2020-01-13 17:37] LABS: D-DIMER QUANT 2761.21 ng/ml (<500)
[2020-01-13 17:46] LABS: ALBUMIN 3.1 GM/DL (3.2-5.2); ALT/SGPT 13 U/L (12-78); BILIRUBIN,DIRECT 0.6 MG/DL (0.0-0.2); BILIRUBIN,TOTAL 1.7 MG/DL (0.2-1.0); BLOOD UREA NITROGEN 8 MG/DL (7-18); CALCIUM LEVEL 7.8 MG/DL (8.8-10.2); CARBON DIOXIDE LEVEL 27 MEQ/L (21-32); CHLORIDE LEVEL 104 MEQ/L (98-107); CK-MB VALUE MASS < 1.0 NG/ML (<3.6); CPK CREATINE PHOSPHOKINASE 51 U/L (39-308); CREATININE FOR GFR 0.72 MG/DL (0.70-1.30); GLOMERULAR FILTRATION RATE > 60.0 (>49); GLUCOSE, FASTING 93 MG/DL (70-100); MB/CK RELATIVE INDEX 1.96 (< OR =4); POTASSIUM SERUM 4.1 MEQ/L (3.5-5.1); SODIUM LEVEL 137 MEQ/L (136-145)
[2020-01-13 17:47] LABS: FREE T4 1.11 NG/DL (0.76-1.46); LIPASE 38 U/L (73-393); NT-PRO BNP 465 PG/ML (<125); TROPONIN I < 0.02 NG/ML (< 0.10)
[2020-01-13] MEDS ORDERED: ISOVUE-370 76% 100ML VIAL As Ordered ONE (18:00)
--- NOTE | 2020-01-13 19:10 | REPVR ---
PROCEDURE INFORMATION: Exam: CT Angiography Chest With Contrast Exam date and time: 01/13/2020 6:43 PM Age: 64 years old Clinical indication: Shortness of breath; Chest pain; Additional info: Chest pain, SOB TECHNIQUE: Imaging protocol: Computed tomographic angiography of the chest with intravenous contrast. 3D rendering (Not supervised by radiologist): MIP and/or 3D reconstructed images were created by the technologist. Radiation optimization: All CT scans at this facility use at least one of these dose optimization techniques: automated exposure control; mA and/or kV adjustment per patient size (includes targeted exams where dose is matched to clinical indication); or iterative reconstruction. Contrast material: ISOVUE 370; Contrast volume: 75 ml; Contrast route: INTRAVENOUS (IV); COMPARISON: CR PORTABLE CHEST X-RAY 01/13/2020 4:56 PM FINDINGS: Pulmonary arteries: There are no pulmonary emboli. Aorta: There is no aortic dissection or aneurysm. Lungs: Unremarkable. No consolidation. No masses. Pleural space: Pleural thickening both lower lobes. Heart: Pericardial thickening or minimal pericardial effusion. Lymph nodes: Unremarkable. No enlarged lymph nodes. Bones/joints: The spine demonstrates mild degenerative changes. Soft tissues: Unremarkable. IMPRESSION: 1. There is no aortic dissection or aneurysm. 2. Pericardial thickening or minimal pericardial effusion. 3. There are no pulmonary emboli. Electronically signed by: David Cabral On 01/13/2020 19:10:20 PM
[2020-01-13] MEDS ORDERED: NS 500 ML IV ONE (19:30)
[2020-01-13] MEDS: HumaLOG INSULIN (NovoLOG) PER UNIT SC SCH (21:00)
--- NOTE | 2020-01-13 22:10 | HPEPDOC ---
[facility] Medical History & Physical Date of Admission Jan 13, 2020 Date of Service: Jan 13, 2020 Attending Physician: YVETTE JARAMILLO MD History and Physical TIME OF SERVICE: 1115pm CHIEF COMPLAINT: chest pain HISTORY OF PRESENT ILLNESS: This 64 yr old M presented w c/o of new onset aching, relapsing and remitting 9/10 in severity chest pain that begun last night and lasts for more than an hour than present. He cant identify any aggravating factors but feels like the nitro he received in the ER helped. REVIEW OF SYSTEMS: 12 point review of systems negative except as listed in HPI PAST MEDICAL/ SURGICAL HISTORY: NETTE not on CPAP Diastolic CHF Morbid Obesity Incarcerated hernia repair L hip repair Cholecystectom SOCIAL HISTORY: Former smoker FAMILY HISTORY: Reviewed none ALLERGIES: Please see below. HOME MEDICATIONS: Please see below. VITAL SIGNS: Please see below. GENERAL APPEARANCE: obese/ well developed /NAD HEENT: no scleral icterus / EOMI CARDIOVASCULAR: RRR/NMRG / + BLE edema LUNGS: difficult to ascultate bc of body habbitus ABDOMEN: distended/ tympanic on percussion/ not tender w palpitation MUSCULOSKELETAL: LES x 4 /NCAT INTEGUMENT: stasis dermatitis changes on BLE NEUROLOGICAL: CN -12 intact / speech not dysarthric PSYCHIATRIC: A&Ox 3 /able to understand and follow all commands LABORATORY DATA: See below. IMAGING: Chest xray IMPRESSION: No acute findings. CT chest IMPRESSION: 1. There is no aortic dissection or aneurysm. 2. Pericardial thickening or minimal pericardial effusion. 3. There are no pulmonary emboli. MICROBIOLOGY: Please see below. ASSESSMENT: is a 64 yr old w a hx of diastolic CHF and NETTE who presented with chest pain and was found to have new onset afib along with possible pericardial effusion. PLAN: 1 Atrial Fibrillation Cause TBD CHADS VASC Score to determine risk of stroke = 2 Plan: admit to PCU / telemetry / amiodarone & xarelto / f/u serial trops, Echo to r/o valvulopathy / he will need a repeat outpatient sleep study 2 Possible pericardial effusion Plan: f/u Echo 3 Grade 1 Diastolic CHF Plan: low salt diet 4 Obesity w BMI of 67 complicates care Plan: f/u A1C and w PCP for referral to Bariatric surgeon DVT px w xarelto Dispo: home after more than 2 midnights stay Vital Signs Vital Signs Date Time Temp Pulse Resp B/P (MAP) Pulse Ox O2 Delivery O2 Flow Rate FiO2 01/13/20 19:20 107 22 93/53 (66) 97 01/13/20 19:01 Room Air 01/13/20 16:48 98.8 Laboratory Data Labs 24H Laboratory Tests 2 01/13/20 16:51: Immature Granulocyte % (Auto) 0.7, Neutrophils (%) (Auto) 75.9H, Lymphocytes (%) (Auto) 9.4L, Monocytes (%) (Auto) 12.7H, Eosinophils (%) (Auto) 1.0, Basophils (%) (Auto) 0.3, Neutrophils # (Auto) 6.6, Lymphocytes # (Auto) 0.8L, Monocytes # (Auto) 1.1H, Eosinophils # (Auto) 0.1, Basophils # (Auto) 0.0, Nucleated Red Blood Cells % (auto) 0.0, Immature Platelet Fraction 5.8, Prothrombin Time 13.6, Prothromb Time International Ratio 1.02, Activated Partial Thromboplast Time 31.6, D-Dimer, Quantitative 2761.21H, Anion Gap 6L, Glomerular Filtration Rate > 60.0, Calcium Level 7.8L, Total Bilirubin 1.7H, Direct Bilirubin 0.6H, Aspartate Amino Transf (AST/SGOT) 15, Alanine Aminotransferase (ALT/SGPT) 13, Alkaline Phosphatase 110, Total Creatine Kinase 51, Creatine Kinase MB < 1.0, Creatine Kinase MB Relative Index 1.96, Troponin I < 0.02, HJ-Sno-I-Type Natriuretic P eptide 465H, Total Protein 7.0, Albumin 3.1L, Albumin/Globulin Ratio 0.8, Lipase 38L, Thyroid Stimulating Hormone (TSH) 2.280, Free Thyroxine 1.11 CBC/BMP Laboratory Tests 01/13/20 16:51 Home Medications Scheduled Sertraline HCl (Sertraline HCl) 50 Mg Tablet, 50 MG PO QHS Zolpidem Tartrate (Zolpidem Tartrate) 5 Mg Tablet, 5 MG PO QHS Allergies Coded Allergies: No Known Allergies (Verified , 07/12/07) A-FIB/CHADSVASC A-FIB History Current/History of A-Fib/PAF?: No Current PO Anticoag Therapy: No YVETTE JARAMILLO MD Jan 13, 2020 22:10
[2020-01-13] MEDS ORDERED: ACETAMINOPHEN TAB 650MG DOSE (2X325MG) PO PRN (22:15)
[2020-01-13] MEDS ORDERED: GLUCOSE 4GM CHEW TABLET PO PRN (22:15)
[2020-01-13] MEDS ORDERED: MAALOX 30 ML SUSP *UDC PO PRN (22:15)
[2020-01-13] MEDS ORDERED: DEXTROSE 50% 50 ML SYRINGE IV PRN (22:15)
[2020-01-13] MEDS ORDERED: GLUCAGON INJ 1MG VIAL SC PRN (22:15)
[2020-01-13] MEDS ORDERED: MOM 30ML SUSPENSION UDC PO PRN (22:15)
[2020-01-14] VITALS (7 sets, daily range): BP systolic 98–122; BP diastolic 58–82
[2020-01-14 00:34] LABS: HEMOGLOBIN A1c 5.4 %
[2020-01-14 00:35] LABS: MAGNESIUM LEVEL 2.1 MG/DL (1.8-2.4); RHEUMATOID FACTOR QUANT < 10.0 IU/ML (<15.0); TROPONIN I < 0.02 NG/ML (< 0.10)
[2020-01-14] MEDS: SERTRALINE HCL 50 MG TAB PO SCH ×2 (01:25→21:42)
[2020-01-14] MEDS ORDERED: NYSTATIN 100,000 UNITS/GM TOPICAL PWD 15 GM TOP PRN (02:00)
[2020-01-14] MEDS ORDERED: RAMELTEON 8 MG TAB (ROZEREM) PO ONE (03:45)
[2020-01-14 05:13] LABS: HEMATOCRIT 40.7 % (42.0-52.0); HEMOGLOBIN 13.5 g/dl (13.5-17.5); MEAN CORPUSCULAR HEMOGLOBIN 31.8 pg (27.0-33.0); MEAN CORPUSCULAR HGB CONC 33.2 g/dl (32.0-36.5); PLATELET COUNT, AUTOMATED 101 10^3/uL (150-450); RED BLOOD COUNT 4.24 10^6/uL (4.30-6.10); WHITE BLOOD COUNT 10.4 10^3/uL (4.0-10.0)
[2020-01-14 05:49] LABS: ALBUMIN 2.8 GM/DL (3.2-5.2); ALT/SGPT 15 U/L (12-78); BILIRUBIN,TOTAL 1.5 MG/DL (0.2-1.0); BLOOD UREA NITROGEN 10 MG/DL (7-18); CALCIUM LEVEL 7.9 MG/DL (8.8-10.2); CARBON DIOXIDE LEVEL 26 MEQ/L (21-32); CHLORIDE LEVEL 107 MEQ/L (98-107); CK-MB VALUE MASS 5.8 NG/ML (<3.6); CPK CREATINE PHOSPHOKINASE 377 U/L (39-308); CREATININE FOR GFR 0.72 MG/DL (0.70-1.30); GLOMERULAR FILTRATION RATE > 60.0 (>49); GLUCOSE, FASTING 97 MG/DL (70-100); MB/CK RELATIVE INDEX 1.54 (< OR =4); POTASSIUM SERUM 3.7 MEQ/L (3.5-5.1); SODIUM LEVEL 139 MEQ/L (136-145); TOTAL PROTEIN 7.2 GM/DL (6.4-8.2); TROPONIN I < 0.02 NG/ML (< 0.10)
[2020-01-14] MEDS: HumaLOG INSULIN (NovoLOG) PER UNIT SC SCH ×4 (07:30→20:42)
[2020-01-14] MEDS ORDERED: AMIODARONE 200 MG TAB (PACERONE) PO SCH (09:00)
[2020-01-14] MEDS: METOPROLOL TART 25 MG TABLET PO SCH ×2 (11:58→21:42)
[2020-01-14] MEDS ORDERED: RIVAROXABAN 20 MG TAB (XARELTO) PO SCH (18:00)
[2020-01-14] MEDS ORDERED: zolPIDEM TARTRATE 5 MG TAB PO SCH (21:00)
[2020-01-15 05:21] LABS: HEMATOCRIT 40.7 % (42.0-52.0); HEMOGLOBIN 13.4 g/dl (13.5-17.5); MEAN CORPUSCULAR HEMOGLOBIN 31.8 pg (27.0-33.0); MEAN CORPUSCULAR HGB CONC 32.9 g/dl (32.0-36.5); MEAN CORPUSCULAR VOLUME 96.7 fl (80.0-96.0); PLATELET COUNT, AUTOMATED 100 10^3/uL (150-450); RED BLOOD COUNT 4.21 10^6/uL (4.30-6.10); WHITE BLOOD COUNT 8.6 10^3/uL (4.0-10.0)
[2020-01-15 05:35] LABS: BLOOD UREA NITROGEN 14 MG/DL (7-18); CALCIUM LEVEL 8.1 MG/DL (8.8-10.2); CARBON DIOXIDE LEVEL 26 MEQ/L (21-32); CHLORIDE LEVEL 107 MEQ/L (98-107); CREATININE FOR GFR 0.65 MG/DL (0.70-1.30); GLOMERULAR FILTRATION RATE > 60.0 (>49); GLUCOSE, FASTING 84 MG/DL (70-100); POTASSIUM SERUM 3.5 MEQ/L (3.5-5.1); SODIUM LEVEL 138 MEQ/L (136-145)
[2020-01-15] MEDS: HumaLOG INSULIN (NovoLOG) PER UNIT SC SCH ×2 (07:30→11:52)
[2020-01-15 08:00] VITALS: BP 117/56
[2020-01-15 08:33] VITALS: BP 117/56
[2020-01-15] MEDS: METOPROLOL TART 25 MG TABLET PO SCH (08:33)
[2020-01-15 11:35] LABS: APPEARANCE, URINE CLOUDY (CLEAR); BACTERIA, URINE AUTO 1+ (NEGATIVE); BILIRUBIN, URINE AUTO NEGATIVE (NEGATIVE); BLOOD, URINE BLOOD 3+ (NEGATIVE); COLOR, URINE AMBER (YELLOW); GLUCOSE, URINE (UA) AUTO NEGATIVE (NEGATIVE); KETONE, URINE AUTO NEGATIVE (NEGATIVE); LEUKOCYTE ESTERASE, URINE AUTO 2+ (NEGATIVE); MUCUS, URINE SMALL (NEGATIVE); NITRITE, URINE AUTO NEGATIVE (NEGATIVE); PROTEIN, URINE AUTO 2+ mg/dL (NEGATIVE); RBC, URINE AUTO TNTC /HPF (0-3); SPECIFIC GRAVITY URINE AUTO 1.023 (1.002-1.035); SQUAMOUS EPITHELIAL CELL UR AU 1 /HPF (0-6); WBC, URINE AUTO 132 /HPF (0-3)
[2020-01-15] MEDS ORDERED: METO1TAB87 PO (12:01)
[2020-01-15] MEDS ORDERED: XARE20TA PO (12:01)
--- NOTE | 2020-01-15 13:57 | DS.PDOC ---
Discharge Summary General Date of Admission Jan 13, 2020 at 22:01 Date of Discharge january 15 2020 Discharge Summary PROCEDURES PERFORMED DURING STAY: [None]. ADMITTING DIAGNOSES: 1. chest pain DISCHARGE DIAGNOSES: 1. new onset atrial fibrillation COMPLICATIONS/CHIEF COMPLAINT: Atrial Fibrillation. HISTORY OF PRESENT ILLNESS: 65-year-old male with past medical history of worrie d obesity presented with concerns of chest pain address. I just want to be in a fib with rapid ventricular rhythm. No acute coronary syndrome. Hospital course: read controlled on low presser 25 mg b.i.d. and Xarelto for anticoagulation started. DISCHARGE MEDICATIONS: Please see below. ALLERGIES: Please see below. PHYSICAL EXAMINATION ON DISCHARGE: VITAL SIGNS: Please see below. General: no acute distress HEENT: normocephalic Neck: supple Heart: normal heart sounds Lungs: no abnormalities on auscultation GI: soft Neuro: no focal deficits Psych: normal mood LABORATORY DATA: Please see below. IMAGING: none PROGNOSIS: stable ACTIVITY: [As tolerated]. DIET: diet DISCHARGE PLAN: f/u PCP within 1 week; recommend PCP to consider outpatient cardiac stress test DISPOSITION: . DISCHARGE INSTRUCTIONS: 1. PCP within 1 week ITEMS TO FOLLOWUP ON ON OUTPATIENT: 1. cardiac risk assessment DISCHARGE CONDITION: stable TIME SPENT ON DISCHARGE:20 min Vital Signs/I&Os Vital Signs Date Time Temp Pulse Resp B/P (MAP) Pulse Ox O2 Delivery O2 Flow Rate FiO2 01/15/20 08:33 69 117/56 01/15/20 08:00 98.9 20 98 Room Air I&O- Last 24 Hours up to 6 AM 01/15/20 05:59 Intake Total 810 ml Output Total 675 ml Balance 135 ml Laboratory Data Labs 24H Laboratory Tests 2 01/14/20 16:36: Bedside Glucose (Misc Panel) 100 01/14/20 19:50: Bedside Glucose (Misc Panel) 100 01/15/20 04:42: Nucleated Red Blood Cells % (auto) 0.0, Anion Gap 5L, Glomerular Filtration Rate > 60.0, Calcium Level 8.1L 01/15/20 11:17: Urine Color AR[place]OLD, Urine Appearance CLOUDYH, Urine pH 6.0, Urine Specific [place] 1.023, Urine Protein 2+H, Urine Glucose (Auto)(UA) NEGATIVE, Urine Ketones (Auto) NEGATIVE, Urine Blood 3+H, Urine Nitrite NEGATIVE, Urine Bilirubin NEGATIVE, Urine Urobilinogen 4.0H, Urine Leukocyte Esterase (Auto) 2+H, Urine WBC (Auto) 132H, Urine RBC (Auto) TNTCH, Urine Hyaline Casts (Auto) 0, Urine Bacteria (Auto) 1+H, Urine Squamous Epithelial Cells 1, Urine Mucus (Auto) SMALL, Urine Sperm (Auto) 01/15/20 11:51: Bedside Glucose (Misc Panel) 90 CBC/BMP Laboratory Tests 01/15/20 04:42 FSBS Laboratory Tests Test 01/14/20 16:36 01/14/20 19:50 01/15/20 11:51 Range/Units Bedside Glucose (Misc Panel) 100 100 90 80-115 MG/DL Microbiology Microbiology 01/14/20 Respiratory Virus Panel (PCR) (ANATOLIY) - Final, Complete Discharge Medications Scheduled Metoprolol Tartrate (Metoprolol Tartrate) 25 Mg Tablet, 1 TAB PO BID Rivaroxaban (Xarelto) 20 Mg Tablet, 20 MG PO DAILY with food Sertraline HCl (Sertraline HCl) 50 Mg Tablet, 50 MG PO QHS, (Reported) Zolpidem Tartrate (Zolpidem Tartrate) 5 Mg Tablet, 5 MG PO QHS, (Reported) Allergies Coded Allergies: No Known Allergies (Verified , 07/12/07) CARRIE GUO DO Jan 15, 2020 13:57
[2020-01-17 16:12] LABS: ANTI DOUBLE STRAND-DNA AB 1 IU/mL (0-9); ANTINUCLEAR ANTIBODIES DIRECT Positive (Negative); RNP ANTIBODIES 1.1 AI (0.0-0.9); SJOGREN'S ANTI SS-A <0.2 AI (0.0-0.9); SJOGREN'S ANTI SS-B <0.2 AI (0.0-0.9); SMITH ANTIBODIES <0.2 AI (0.0-0.9)
--- NOTE | 2020-01-18 15:24 | ECHO ---
DATE OF PROCEDURE: 01/14/2020 Age: 67 PATIENT LOCATION: Room 3205 REASON FOR STUDY: Chest pain. 2D MEASUREMENTS: IVS 1.2 cm LV 5.7 cm LVPW 1.1 cm LA 4.3 cm Aortic root 3.4 cm Ascending aorta 3.2 cm IVC 3.0 cm 2D COMMENTS: 1. Abnormal left ventricle wall thickness with borderline enlarged left ventricle and a low normal global left ventricular systolic function. The estimated left ventricular systolic ejection fraction is 50% to 55%. 2. Mildly enlarged left atrium at 4.3 cm. Normal right atrium and right ventricle. 3. The atrial septum appears to be normal without evidence of defect or shunt. 4. Normal aortic root. 5. Trace pericardial effusion noted. No evidence of cardiac tamponade. 6. Mildly calcified aortic valve with normal leaflet excursion. Mildly calcified mitral annulus with normal anterior mitral valve leaflet motion. Normal tricuspid valve and pulmonic valve. The proximal pulmonary artery branches also appear to be normal on the limited views. 7. The inferior vena cava was dilated, central venous pressure mildly elevated. DOPPLER: It detects trace aortic regurgitation, trace mitral regurgitation. Assessment of the left ventricular diastolic function was limited due to underlying atrial fibrillation. CONCLUSIONS: 1. Low normal global left ventricular systolic function with a mildly enlarged left ventricle and preserved left ventricular wall thickness. 2. Assessment of the left ventricular diastolic function was limited in view of the underlying atrial fibrillation. 3. Aortic valve sclerosis with trace aortic regurgitation, but no stenosis. 4. Mitral annulus calcification with a mildly enlarged left atrium and trace mild regurgitation. 5. There are some features of elevated central venous pressure, the inferior vena cava was mildly enlarged. 6. Trace pericardial effusion, no evidence of cardiac tamponade. [facility]
--- NOTE | 2020-01-25 17:02 | ECGEPIP ---
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
== END 2020-01-15 16:55 | disposition home or self-care (01) | DRG 309 ==
LOC: M ED 16:29 → EDBD 16:29 → M ED INP 22:01 → ENRESERV 22:20 → M ICU 01-14 00:16
PROVIDERS: ADMIT Internal Medicine; ATTEND Internal Medicine
DX: I48.91 Unspecified atrial fibrillation (principal); I50.32 Chronic diastolic (congestive) heart failure; Z68.44 Body mass index [BMI] 60.0-69.9, adult; G47.33 Obstructive sleep apnea (adult) (pediatric); E66.9 Obesity, unspecified; Z79.899 Other long term (current) drug therapy

== ENCOUNTER → 2020-03-21 | Outpatient (REF) | payer MEDICARE ==
[~2020-03-21] MED LIST changes: +SERT50TA29 PO; +XARE20TA PO
[2020-03-21 18:17] LABS: APPEARANCE, URINE CLOUDY (CLEAR); BACTERIA, URINE AUTO 1+ (NEGATIVE); BILIRUBIN, URINE AUTO NEGATIVE (NEGATIVE); BLOOD, URINE BLOOD 3+ (NEGATIVE); COLOR, URINE AMBER (YELLOW); GLUCOSE, URINE (UA) AUTO NEGATIVE (NEGATIVE); KETONE, URINE AUTO NEGATIVE (NEGATIVE); LEUKOCYTE ESTERASE, URINE AUTO 2+ (NEGATIVE); MUCUS, URINE SMALL (NEGATIVE); NITRITE, URINE AUTO NEGATIVE (NEGATIVE); PROTEIN, URINE AUTO 2+ mg/dL (NEGATIVE); RBC, URINE AUTO TNTC /HPF (0-3); SPECIFIC GRAVITY URINE AUTO 1.014 (1.002-1.035); SQUAMOUS EPITHELIAL CELL UR AU 1 /HPF (0-6); WBC, URINE AUTO TNTC /HPF (0-3)
== END ==
LOC: M SMT 16:48
PROVIDERS: ATTEND Nurse Practitioner Women's Health
DX: R31.0 Gross hematuria (principal)
CPT/HCPCS: 81001; 87086; G0463

== ENCOUNTER 2020-04-06 11:12 | Inpatient (IN) | payer MEDICARE ==
[2020-04-06] MEDS ORDERED: NS 500 ML IV ONE (12:00)
--- NOTE | 2020-04-06 12:05 | REP ---
INDICATION: b/l UQ abd pain COMPARISON: 01/13/2020 TECHNIQUE: Portable AP view of the chest FINDINGS: Stable cardiomegaly. Trace left basilar atelectasis cannot be excluded. No focal consolidation. No obvious effusion. No pneumothorax. Skeletal structures intact. IMPRESSION: Stable cardiomegaly. Cannot exclude trace left basilar atelectasis. <Electronically signed by Drew Rosario > 04/06/20 1207
[2020-04-06 12:25] LABS: BASO % 0.2 % (0.0-1.0); EOS % 0.2 % (0.0-3.0); HEMATOCRIT 37.8 % (42.0-52.0); HEMOGLOBIN 11.6 g/dl (13.5-17.5); LYMPH # 0.5 10^3/uL (1.5-5.0); LYMPH % 5.9 % (24.0-44.0); MEAN CORPUSCULAR HEMOGLOBIN 29.6 pg (27.0-33.0); MEAN CORPUSCULAR HGB CONC 30.7 g/dl (32.0-36.5); MEAN CORPUSCULAR VOLUME 96.4 fl (80.0-96.0); MONO # 0.6 10^3/uL (0.0-0.8); MONO % 6.3 % (0.0-5.0); NEUTROPHILS # 7.6 10^3/uL (1.5-8.5); NEUTROPHILS % 86.7 % (36.0-66.0); PLATELET COUNT, AUTOMATED 144 10^3/uL (150-450); RED BLOOD COUNT 3.92 10^6/uL (4.30-6.10); WHITE BLOOD COUNT 8.7 10^3/uL (4.0-10.0)
[2020-04-06 13:10] LABS: ALBUMIN 2.9 GM/DL (3.2-5.2); ALT/SGPT 13 U/L (12-78); AMYLASE 20 U/L (25-115); BILIRUBIN,DIRECT 0.4 MG/DL (0.0-0.2); BILIRUBIN,TOTAL 0.9 MG/DL (0.2-1.0); BLOOD UREA NITROGEN 10 MG/DL (7-18); CALCIUM LEVEL 8.1 MG/DL (8.8-10.2); CARBON DIOXIDE LEVEL 28 MEQ/L (21-32); CHLORIDE LEVEL 104 MEQ/L (98-107); CK-MB VALUE MASS < 1.0 NG/ML (<3.6); CPK CREATINE PHOSPHOKINASE 36 U/L (39-308); CREATININE FOR GFR 0.96 MG/DL (0.70-1.30); GLOMERULAR FILTRATION RATE > 60.0 (>49); GLUCOSE, FASTING 115 MG/DL (70-100); LIPASE 45 U/L (73-393); MB/CK RELATIVE INDEX 2.78 (< OR =4); POTASSIUM SERUM 3.8 MEQ/L (3.5-5.1); SODIUM LEVEL 138 MEQ/L (136-145); TOTAL PROTEIN 7.7 GM/DL (6.4-8.2); TROPONIN I < 0.02 NG/ML (< 0.10)
[2020-04-06] MEDS ORDERED: ISOVUE-370 76% 100ML VIAL As Ordered ONE (13:29)
[2020-04-06] MEDS ORDERED: cefTRIAXone SOD 1 GM in D5W MINI-BAG PLUS 50 ML IV ONE (14:15)
[2020-04-06] MEDS ORDERED: NS 1,000 ML IV ONE ×2 (14:15→15:00)
--- NOTE | 2020-04-06 14:18 | REP ---
INDICATION: severe b/l UQ abd pain. LUQ spigelian hernia. COMPARISON: None TECHNIQUE: Axial contrast-enhanced images from the lung bases to the pubic symphysis using 100 cc Isovue 370 intravenous contrast material. Coronal and sagittal reformations obtained. This CT examination was performed using the following dose reduction techniques: Automated exposure control, adjustment of mA and/or kv according to the patient's size, and the use of iterative reconstruction technique. FINDINGS: There is a relatively large midline ventral hernia measuring roughly 20 cm and containing mesenteric fat as well as mildly prominent fluid-filled loops of small bowel. The afferent and efferent loops as well as proximal and distal loops of small bowel within the abdomen demonstrate mild fluid distension and a mild associated partial/intermittent obstruction cannot be excluded. The large bowel is grossly unremarkable with the exception of scattered diverticula. Liver, spleen, pancreas, and bilateral adrenal glands are normal. Kidneys demonstrate chronic atrophic changes along with suspected staghorn calculus in the right renal pelvis with chronic inflammatory changes to the proximal collecting system. No associated acute perinephric stranding or acute ureteral obstruction noted. Pelvis is somewhat obscured due to beam hardening artifact from left hip prosthesis, but artifact reduction technique demonstrates relatively normal appearance to the bladder and prostate gland. No ascites. No free air. No adenopathy. Abdominal aorta without aneurysm or dissection. Musculoskeletal structures are intact. Lung bases demonstrate moderate pleural effusions and bibasilar atelectasis. IMPRESSION: 1. Large 20 cm midline ventral hernia containing mesenteric fat and multiple loops of mildly prominent fluid-filled small bowel raising the possibility of intermittent/partial obstruction. No caprice small bowel obstruction is otherwise noted. No free air. No ascites. 2. Moderate bilateral pleural effusions and bibasilar atelectasis. 3. Staghorn calculus and chronic inflammatory changes noted in the right renal pelvis without acute perinephric stranding or hydronephrosis. 4. Further chronic changes as above. <Electronically signed by Drew Rosario > 04/06/20 [id number]
[2020-04-06] MEDS ORDERED: SERT-138 PO (14:39)
[2020-04-06] MEDS ORDERED: METO1TAB7 PO (14:39)
[2020-04-06] MEDS ORDERED: XARE20TA PO (14:39)
[2020-04-06] MEDS ORDERED: CEPH500C PO (14:40)
[2020-04-06] MEDS ORDERED: ZOLP10TA2 PO (14:40)
[2020-04-06] MEDS ORDERED: ACETAMINOPHEN TAB 650MG DOSE (2X325MG) PO PRN (15:15)
[2020-04-06] MEDS ORDERED: cefTRIAXone SOD 1 GM in D5W MINI-BAG PLUS 50 ML IV SCH (16:00)
--- NOTE | 2020-04-06 16:48 | HPEPDOC ---
[facility] Medical History & Physical Date of Admission Apr 06, 2020 Date of Service: Apr 06, 2020 Attending Physician: NATE BEDOYA MD History and Physical CHIEF COMPLAINT: Abdominal pain HISTORY OF PRESENT ILLNESS: 64 yr old M with a history of an incarcerated ventral hernia s/p repair in 2019, morbid obesity, diastolic CHF, NETTE not on CPAP, Afib on Xarelto, who presents to the ED reporting acute abdominal pain directly at the site of of his large midline hernia. He reports having been at his usual health until this morning when the pain began and it is unremitting and he has had small bowel movements with functional constipation. He otherwise denies any fever, chills, nausea, juliana sis, diarrhea, bloody stool, recent sick contacts, travel, cough, rhinorrhea, congestion, chest pain, palpitations, back pain or dysuria though he notes dark urine. In the ED, he was HDS with borderline low BP to SBP low 100s and tachycardic to 120s. On evaluation CT A/P showed a large 20cm midline ventral hernia containing mesenteric fat and multiple loops of small bowel c/f partial SBO without a caprice obstruction, free air or ascites. It also showed a staghorn calculus in the right pelvis that appeared chronic with no perinephric stranding or hydronephrosis. WBC was 8.7, hgb 11.6, platelets 144, na 138, K 3.8, Cr 0.96, lipase 45, LFTs wnl, troponin negative and UA showed 3+ blood, 63 WBCs. TNTC RBCs, 1+ leukoesterase and negative nitrites. Of note, he had been on keflex in the outpatient setting. He had a respiratory panel that was negative for covid- 19. While in the ED he received 3L NS, ceftriaxone and surgery was consulted. Dr. Gordillo recommended a clear liquid diet, hold his AC for possible repair surgery. He is now being admitted to medicine. REVIEW OF SYSTEMS: 12 point review of systems negative except as listed in HPI PAST MEDICAL HISTORY: NETTE not on CPAP Diastolic CHF Morbid Obesity Abdominal hernia Atrial fibrillation SURGICAL HISTORY: Incarcerated hernia repair L hip repair Cholecystectomy SOCIAL HISTORY: Former smoker FAMILY HISTORY: Non contributory ALLERGIES: Please see below. HOME MEDICATIONS: Please see below. VITAL SIGNS: Please see below. GENERAL APPEARANCE: Morbidly obese,well developed /NAD HEENT: no scleral icterus, PERRLA, EOMI, MMM CARDIOVASCULAR: RRR, NMRG, + BLE edema LUNGS: Diminished on my exam but otherwise clear, no caprice crackles or wheezing ABDOMEN:Obese, distended, tympanic on percussion, large ventral midline hernia, tender to touch, no rebound SKIN: Chronic stasis dermatitis changes on BLE NEUROLOGICAL: CN -12 intact, speech not dysarthric, 5/5 strength in all 4 extremities PSYCHIATRIC: A&Ox 3, able to understand and follow all commands LABORATORY DATA: Summarized above IMAGING: CT A/P: There is a relatively large midline ventral hernia measuring roughly 20 cm and containing mesenteric fat as well as mildly prominent fluid-filled loops of small bowel. The afferent and efferent loops as well as proximal and distal loops of small bowel within the abdomen demonstrate mild fluid distension and a mild associated partial/intermittent obstruction cannot be excluded. The large bowel is grossly unremarkable with the exception of scattered diverticula. Liver, spleen, pancreas, and bilateral adrenal glands are normal. Kidneys demonstrate chronic atrophic changes along with suspected staghorn calculus in the right renal pelvis with chronic inflammatory changes to the proximal collecting system. No associated acute perinephric stranding or acute ureteral obstruction noted. Pelvis is somewhat obscured due to beam hardening artifact from left hip prosthesis, but artifact reduction technique demonstrates relatively normal appearance to the bladder and prostate gland. No ascites. No free air. No adenopathy. Abdominal aorta without aneurysm or dissection. Musculoskeletal structures are intact. Lung bases demonstrate moderate pleural effusions and bibasilar atelectasis. IMPRESSION: 1. Large 20 cm midline ventral hernia containing mesenteric fat and multiple loops of mildly prominent fluid-filled small bowel raising the possibility of intermittent/partial obstruction. No caprice small bowel obstruction is otherwise noted. No free air. No ascites. 2. Moderate bilateral pleural effusions and bibasilar atelectasis. 3. Staghorn calculus and chronic inflammatory changes noted in the right renal pelvis without acute perinephric stranding or hydronephrosis. 4. Further chronic changes as above. CXR: No noted acute pathology. L basilar atelectasis MICROBIOLOGY: Please see below. ASSESSMENT: 64 yr old M with a history of an incarcerated ventral hernia s/p repair in 2019, morbid obesity, diastolic CHF, NETTE not on CPAP, Afib on Xarelto, who presents to the ED reporting acute abdominal pain and found to have a partial incarceration of his small bowel. PLAN: Partial SBO: per CT i/s/o of prior hernia repair. -Dr. Gordillo consulted --> hold AC, clear liquid diet, possible surgery - pain -100cc/hr for another 1L Atrial Fibrillation -continue metoprolol with hold parameters -holding AC for possible surgery Grade 1 Diastolic CHF -currently well compensated. On clear liquid diet, will plan for low salt diet -Judicious use of fluids for hemodynamic support. Will give 1 more liter and reassess Obesity w BMI of 67 complicates care -PCP for referral to Bariatric surgeon DVT:TEDs and SCDs Dispo: home after more than 2 midnights stay Vital Signs Vital Signs Date Time Temp Pulse Resp B/P (MAP) Pulse Ox O2 Delivery O2 Flow Rate FiO2 04/06/20 13:45 101/59 (73) 04/06/20 13:42 127 98 04/06/20 12:25 97.7 04/06/20 11:41 22 Room Air Laboratory Data Labs 24H Laboratory Tests 2 04/06/20 11:17: Lactic Acid Level 2.2*H 04/06/20 11:44: Immature Granulocyte % (Auto) 0.7, Neutrophils (%) (Auto) 86.7H, Lymphocytes (%) (Auto) 5.9L, Monocytes (%) (Auto) 6.3H, Eosinophils (%) (Auto) 0.2, Basophils (%) (Auto) 0.2, Neutrophils # (Auto) 7.6, Lymphocytes # (Auto) 0.5L, Monocytes # (Auto) 0.6, Eosinophils # (Auto) 0.0, Basophils # (Auto) 0.0, Nucleated Red Blood Cells % (auto) 0.0, Anion Gap 6L, Glomerular Filtration Rate > 60.0, Calcium Level 8.1L, Total Bilirubin 0.9, Direct Bilirubin 0.4H, Aspartate Amino Transf (AST/SGOT) 24, Alanine Aminotransferase (ALT/SGPT) 13, Alkaline Phosphatase 133H, Total Creatine Kinase 36L, Creatine Kinase MB < 1.0, Creatine Kinase MB Relative Index 2.78, Troponin I < 0.02, Total Protein 7.7, Albumin 2.9L, Albumin/Globulin Ratio 0.6, Amylase Level 20L, Lipase 45L 04/06/20 12:25: Urine Color REDH, Urine Appearance CLOUDYH, Urine pH 6.0, Urine Specific [place] 1.013, Urine Protein 2+H, Urine Glucose (UA) NEGATIVE, Urine Ketones 1+H, Urine Blood 3+H, Urine Nitrite NEGATIVE, Urine Bilirubin NEGATIVE, Urine Urobilinogen 4.0H, Urine Leukocyte Esterase 1+H, Urine WBC (Auto) 63H, Urine RBC (Auto) TNTCH, Urine Hyaline Casts (Auto) 0, Urine Bacteria (Auto) NEGATIVE, Urine Squamous Epithelial Cells 2, Urine Mucus (Auto) SMALL, Urine Sperm (Auto) 04/06/20 14:21: Coronavirus (COVID-19)(PCR) NEGATIVE CBC/BMP Laboratory Tests 04/06/20 11:44 Microbiology Microbiology 04/06/20 Urine Culture, Received Pending 04/06/20 Blood Culture, Received Pending 04/06/20 Blood Culture, Received Pending Home Medications Scheduled Cephalexin (Cephalexin) 500 Mg Capsule, 500 MG PO BID FILLED 03/30/20 FOR 7 DAYS Metoprolol Succinate (Metoprolol Succinate) 50 Mg Tab.er.24h, 50 MG PO DAILY Rivaroxaban (Xarelto) 20 Mg Tablet, 20 MG PO QPM Sertraline HCl (Sertraline HCl) 100 Mg Tablet, 100 MG PO DAILY Zolpidem Tartrate (Zolpidem Tartrate) 10 Mg Tablet, 10 MG PO QHS Allergies Coded Allergies: No Known Allergies (Verified , 07/12/07) A-FIB/CHADSVASC A-FIB History Current/History of A-Fib/PAF?: Yes Current PO Anticoag Therapy: No Age/Risk Factor Scoring CHADSVASC: CHADSVASC Response (Comments) Value Age Risk Factor Age < 65 years old 0 Gender Risk Factor Male 0 Hx of CHF No 0 Hx of HTN No 0 Hx of Stroke/TIA/or VTE No 0 Hx of Diabetes No 0 Hx of Vascular Disease Yes 1 Total 1 Treatment Treatment ordered: NONE Reason Anticoagulant not given: Recent/upcomin procedure NATE BEDOYA MD Apr 06, 2020 16:03
[2020-04-06 17:15] LABS: CK-MB VALUE MASS < 1.0 NG/ML (<3.6); CPK CREATINE PHOSPHOKINASE 31 U/L (39-308); MB/CK RELATIVE INDEX 3.23 (< OR =4); TROPONIN I < 0.02 NG/ML (< 0.10)
[2020-04-06 18:10] VITALS: BP 117/68
[2020-04-06] MEDS: NS 1,000 ML IV SCH (18:58)
--- NOTE | 2020-04-06 19:19 | ECGEPIP ---
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
[2020-04-06 20:51] VITALS: BP 102/62
[2020-04-07] MEDS: NS 1,000 ML IV SCH (05:08)
[2020-04-07 05:44] VITALS: BP 123/72
[2020-04-07 07:05] LABS: HEMATOCRIT 35.5 % (42.0-52.0); HEMOGLOBIN 10.8 g/dl (13.5-17.5); MEAN CORPUSCULAR HEMOGLOBIN 29.3 pg (27.0-33.0); MEAN CORPUSCULAR HGB CONC 30.4 g/dl (32.0-36.5); MEAN CORPUSCULAR VOLUME 96.5 fl (80.0-96.0); PLATELET COUNT, AUTOMATED 131 10^3/uL (150-450); RED BLOOD COUNT 3.68 10^6/uL (4.30-6.10); WHITE BLOOD COUNT 6.8 10^3/uL (4.0-10.0)
[2020-04-07 07:24] LABS: BLOOD UREA NITROGEN 8 MG/DL (7-18); CALCIUM LEVEL 7.4 MG/DL (8.8-10.2); CARBON DIOXIDE LEVEL 26 MEQ/L (21-32); CHLORIDE LEVEL 109 MEQ/L (98-107); CREATININE FOR GFR 0.68 MG/DL (0.70-1.30); GLOMERULAR FILTRATION RATE > 60.0 (>49); GLUCOSE, FASTING 89 MG/DL (70-100); POTASSIUM SERUM 3.7 MEQ/L (3.5-5.1); SODIUM LEVEL 140 MEQ/L (136-145)
--- NOTE | 2020-04-07 08:24 | CR.PDOC ---
General Surgery Consultation Date of Consultation 04/07/20 History and Physical CONSULT REPORT FOR: Dr. Washington (Hospitalist Service) REASON FOR CONSULTATION: ventral hernia, ?incarcerated HISTORY OF PRESENT ILLNESS: Patient is a 64-year-old male, morbidly obese with a BMI of 67 has a long- standing midline ventral hernia and last year underwent ventral hernia repair with Dr. Judd in an urgent fashion after presenting with recurrent small bowel obstruction secondary to incarceration of the small bowel through his midline ventral hernia. This was done with a 15 cm Parietex composite mesh in an IPOM fashion (with closure of the hernia/fascial defect with a small incision on top of the hernia). His hernia promptly recurred and was following up with Dr. Judd. His repair was somewhat delayed due to the Covid pandemic and that he has not been symptomatic since the recurrence. He presents to the emergency room today with increased pain along where his hernia is located at this mid abdomen when he woke up this morning. He reports some mild nausea but has not been throwing up, reports he is passing flatus and has had a bowel movement this morning. In asking him with the hernia fully reduces when he lays down he rep orts that it sometimes does, sometimes does not. It did appear more prominent this morning so at the time that I saw him he reports this has improved. PAST MEDICAL HISTORY: 1. Morbid obesity with a BMI of 67 2. Diastolic congestive heart failure 3. Obstructive sleep apnea not on CPAP 4. Recurrent ventral hernia 4. Atrial fibrillation on Xarelto. PAST SURGICAL HISTORY: INCLUDES: 1. Incarcerated ventral hernia repair laparoscopic lipoma plus 2. Left hip repair 3. Laparoscopic cholecystectomy. PREVIOUS ANESTHESIA REACTIONS: ALLERGIES: Please see below. FAMILY HISTORY: . HOME MEDICATIONS: Please see below. REVIEW OF SYSTEMS: GENERAL: [Denies chills, reports weight gain, reports feeling febrile yesterday]. HEENT: [Denies blurred vision and double vision. Denies ear symptoms. Denies hoarseness]. NECK: Denies any neck pain]. CARDIOVASCULAR: [Denies chest pain and palpitations]. MUSCULOSKELETAL: [Denies arthralgias, back pain and thrombophlebitis]. SKIN: [Denies rash]. NEUROLOGIC: [Denies headache, stroke and transient ischemic attack]. PSYCHIATRIC: [Denies anxiety and depression]. ENDOCRINE: [Denies thyroid disease]. HEMATOLOGY/ONCOLOGY: [Denies bleeding or clotting disorder]. HEART: [Denies any chest pains, palpitations, paroxysmal dyspnea, orthopnea]. PULMONARY: [Denies chronic cough, dyspnea and wheezing]. GASTROINTESTINAL: [Denies rectal bleeding, family history of colon cancer, constipation, diarrhea, dysphagia, heartburn and jaundice]. GENITOURINARY: [Denies dysuria, frequency, hematuria and nocturia]. ENDOCRINE: [Denies polydipsia, polyphagia, polyuria, heat or cold intolerance]. INFECTIOUS: [Denies any recent upper respiratory tract infection, UTI, need for use of antibiotics]. NUTRITION: [Reports good appetite]. PHYSICAL EXAMINATION: VITALS SIGNS: Please see below. GENERAL APPEARANCE:[Patient seen, laying in bed, awake, alert, and oriented. Comfortable, in no acute distress]. SKIN: [Warm and moist]. HEENT: [Normocephalic, atraumatic. [place] palpebral conjunctiva, anicteric sclerae. Lips and mucosa appear moist]. NECK: [Supple, no thyromegaly. No obvious jugular venous distention]. LUNGS: [Clear to auscultation bilaterally. No wheezing appreciated]. HEART: [No chest wall abnormalities. Regular rate and rhythm with no murmurs appreciated]. ABDOMEN: Abdomen is , soft, . [No hepatosplenomegaly. No umbilical or groin herniations, nondistended. No noticeable rebound or guarding. No grimacing with palpation. No rebound tenderness. No masses appreciated]. EXTREMITIES: [Extremities have no deformities. No edema identified] ANCILLARIES: . LABORATORY DATA: Please see below. IMAGING STUDIES: I reviewed his CT of the abdomen and pelvis. This does contain a large ventral hernia roughly measures 6 x 6 cm at the fascial level this is containing small bowel. No signs of threatened bowel, no fluid in the hernia sac, no free air. IMPRESSION AND PLAN: Recurrent ventral hernia 5 x 5 cm Morbid obesity with a BMI of 67 This is a difficult situation especially given his body habitus. At his BMI, there is no known durable repair of his ventral hernia and as we have discovered during his last repair this would recur almost immediately and has gotten bigger. He is a bit slow with his mental capacity and it will be hard to rehabilitation with 8 him. He will need an extensive weight loss ideally in a BMI below 40 before being considered ideal candidate for the repair. If he keeps on presenting with transient incarceration remain need to eventually deal with this in a not so ideal situation. I don't think his hernia is fully incarcerated though I could not fully reduce it which may have to do with the mild left over distention of the small bowel although he does not seem to have obstructive symptoms at this point. I agree on observing him and I'll reevaluate him in the morning but otherwise I would not consider a hernia repair on him unless it is emergent or urgent knowing that this will be a failed effort. Vital Signs Vital Signs Date Time Temp Pulse Resp B/P (MAP) Pulse Ox O2 Delivery O2 Flow Rate FiO2 04/07/20 05:44 98.5 70 18 123/72 (89) 96 Room Air I&Os I&O- Last 24 Hours up to 6 AM 04/07/20 06:00 Intake Total 2970 ml Output Total 550 ml Balance 2420 ml Laboratory Data Labs 24H Laboratory Tests 2 04/06/20 11:17: Lactic Acid Level 2.2*H 04/06/20 11:44: Immature Granulocyte % (Auto) 0.7, Neutrophils (%) (Auto) 86.7H, Lymphocytes (%) (Auto) 5.9L, Monocytes (%) (Auto) 6.3H, Eosinophils (%) (Auto) 0.2, Basophils (%) (Auto) 0.2, Neutrophils # (Auto) 7.6, Lymphocytes # (Auto) 0.5L, Monocytes # (Auto) 0.6, Eosinophils # (Auto) 0.0, Basophils # (Auto) 0.0, Nucleated Red Blood Cells % (auto) 0.0, Anion Gap 6L, Glomerular Filtration Rate > 60.0, Calcium Level 8.1L, Total Bilirubin 0.9, Direct Bilirubin 0.4H, Aspartate Amino Transf (AST/SGOT) 24, Alanine Aminotransferase (ALT/SGPT) 13, Alkaline Phosphatase 133H, Total Creatine Kinase 36L, Creatine Kinase MB < 1.0, Creatine Kinase MB Relative Index 2.78, Troponin I < 0.02, Total Protein 7.7, Albumin 2.9L, Albumin/Globulin Ratio 0.6, Amylase Level 20L, Lipase 45L 04/06/20 12:25: Urine Color REDH, Urine Appearance CLOUDYH, Urine pH 6.0, Urine Specific [place] 1.013, Urine Protein 2+H, Urine Glucose (UA) NEGATIVE, Urine Ketones 1+H, Urine Blood 3+H, Urine Nitrite NEGATIVE, Urine Bilirubin NEGATIVE, Urine Urobilinogen 4.0H, Urine Leukocyte Esterase 1+H, Urine WBC (Auto) 63H, Urine RBC (Auto) TNTCH, Urine Hyaline Casts (Auto) 0, Urine Bacteria (Auto) NEGATIVE, Urine Squamous Epithelial Cells 2, Urine Mucus (Auto) SMALL, Urine Sperm (Auto) 04/06/20 14:21: Coronavirus (COVID-19)(PCR) NEGATIVE 04/06/20 15:43: Total Creatine Kinase 31L, Creatine Kinase MB < 1.0, Creatine Kinase MB Relative Index 3.23, Troponin I < 0.02 04/06/20 16:55: Lactic Acid Followup at 4 Hours 1.6 04/07/20 06:41: Nucleated Red Blood Cells % (auto) 0.0, Anion Gap 5L, Glomerular Filtration Rate > 60.0, Calcium Level 7.4L, Magnesium Level 2.0 CBC/BMP Laboratory Tests 04/06/20 11:44 04/07/20 06:41 Microbiology Microbiology 04/06/20 Urine Culture - Final, Complete 04/06/20 Blood Culture - Preliminary, Resulted 04/06/20 Blood Culture, Received Pending Home Medications Scheduled Cephalexin (Cephalexin) 500 Mg Capsule, 500 MG PO BID, (Reported) FILLED 03/30/20 FOR 7 DAYS Metoprolol Succinate (Metoprolol Succinate) 50 Mg Tab.er.24h, 50 MG PO DAILY, (Reported) Rivaroxaban (Xarelto) 20 Mg Tablet, 20 MG PO QPM, (Reported) Sertraline HCl (Sertraline HCl) 100 Mg Tablet, 100 MG PO DAILY, (Reported) Zolpidem Tartrate (Zolpidem Tartrate) 10 Mg Tablet, 10 MG PO QHS, (Reported) Allergies Coded Allergies: No Known Allergies (Verified , 07/12/07) JUANCHO FORD MD Apr 07, 2020 08:24
[2020-04-07 08:26] VITALS: BP 124/70
[2020-04-07] MEDS ORDERED: METOPROLOL SUCC (TopROL XL) 50MG **XL** TAB PO SCH (09:00)
[2020-04-07] MEDS ORDERED: SERTRALINE 100 MG TAB PO SCH (09:00)
--- NOTE | 2020-04-07 10:00 | IPNPDOC ---
Text Note Date of Service The patient was seen on 04/07/20. NOTE no more abdominal pain, his ventral hernia is well reduced. VS stable Comfortable abdomen, obese, soft, nondistended, midline ventral hernia is reduced back into the abdomen with only slight protrusion above the fascial defect. Nontender on palpation Impression and plan: morbid obesity BMI 67 ventral hernia He would need adequate prehabilitation to plan for elective hernia repair liang trying to get him to loose weight. I spoke with him with regards to this and he could follow up in clinic. Otherwise stable to go home. VS,Fishbone, I+O VS, Fishbone, I+O Laboratory Tests 04/06/20 11:44 04/07/20 06:41 Vital Signs Date Time Temp Pulse Resp B/P (MAP) Pulse Ox O2 Delivery O2 Flow Rate FiO2 04/07/20 08:26 66 124/70 04/07/20 05:44 98.5 18 96 Room Air I&O- Last 24 Hours up to 6 AM 04/07/20 06:00 Intake Total 2970 ml Output Total 550 ml Balance 2420 ml JUANCHO FORD MD Apr 07, 2020 10:00
[2020-04-07 14:00] VITALS: BP 125/72
--- NOTE | 2020-04-07 16:40 | DS.PDOC ---
Discharge Summary General Date of Admission Apr 06, 2020 at 15:11 Date of Discharge 04/07/2020 Attending Physician: NATE BEDOYA MD Discharge Summary PROCEDURES PERFORMED DURING STAY: None ADMITTING DIAGNOSES: 1. Abdominal pain DISCHARGE DIAGNOSES: 1. Abdominal pain 2. Partial SBO 3. Ventral hernia 4. Morbid obesity 5. NETTE not on CPAP 6. Chronic Diastolic CHF 7. Atrial fibrillation COMPLICATIONS/CHIEF COMPLAINT: Abd Pain,Partial Small Bowel Obstruction. HISTORY OF PRESENT ILLNESS: 64 yr old M with a history of an incarcerated ventral hernia s/p repair in 2019, morbid obesity, diastolic CHF, NETTE not on CPAP, Afib on Xarelto, who presents to the ED reporting acute abdominal pain directly at the site of of his large midline hernia. He reports having been at his usual health until the morning of presentation when the pain began and it was unremitting and he had small bowel movements with functional constipation. He otherwise denied any fever, chills, nausea, emesis, diarrhea, bloody stool, recent sick contacts, travel, cough, rhinorrhea, congestion, chest pain, palpitations, back pain or dysuria though he notes dark urine. HOSPITAL COURSE: In the ED, he was HDS with borderline low BP to SBP low 100s and tachycardic to 120s. On evaluation CT A/P showed a large 20cm midline ventral hernia containing mesenteric fat and multiple loops of small bowel c/f partial SBO without a caprice obstruction, free air or ascites. It also showed a staghorn calculus in the right pelvis that appeared chronic with no perinephric stranding or hydronephrosis. WBC was 8.7, hgb 11.6, platelets 144, na 138, K 3.8, Cr 0.96, lipase 45, LFTs wnl, troponin negative and UA showed 3+ blood, 63 WBCs. TNTC RBCs, 1+ leukocyte esterase and negative nitrites. Of note, he had been on keflex in the outpatient setting for a UTI. He had a respiratory panel that was negative for covid-19. While in the ED he received 3L NS, ceftriaxone and surgery was consulted. Dr. Gordillo recommended a clear liquid diet, hold his AC for possible repair surgery if persistent and indicated and he was admitted to medicine for observation. He tolerated the clear liquid diet and by morning of day 2 his ventral hernia had reduced with slight protrusion and abdominal pain had resolved. He was resumed on a regular diet and he tolerated it well. He is now being discharged home to follow up with his PCP, especially for weight loss planning so that he can be optimized for surgery and Dr. Gordillo (surgery) recommended that he would need adequate prehabilitation to plan for elective hernia repair liang trying to get him to lose weight. DISCHARGE MEDICATIONS: Please see below. ALLERGIES: Please see below. PHYSICAL EXAMINATION ON DISCHARGE: VITAL SIGNS: Please see below. GENERAL APPEARANCE: Morbidly obese,well developed /NAD HEENT: no scleral icterus, PERRLA, EOMI, MMM CARDIOVASCULAR: RRR, NMRG, + BLE edema LUNGS: Diminished on my exam but otherwise clear, no caprice crackles or wheezing ABDOMEN: Obese, normoactive sounds, soft, nondistended, midline ventral hernia now reduced with mild protrusion, non tender SKIN: Chronic stasis dermatitis changes on BLE NEUROLOGICAL: CN -12 intact, speech not dysarthric, 5/5 strength in all 4 extremities PSYCHIATRIC: A&Ox 3, able to understand and follow all commands LABORATORY DATA: see below IMAGING: CT A/P: There is a relatively large midline ventral hernia measuring roughly 20 cm and containing mesenteric fat as well as mildly prominent fluid-filled loops of small bowel. The afferent and efferent loops as well as proximal and distal loops of small bowel within the abdomen demonstrate mild fluid distension and a mild associated partial/intermittent obstruction cannot be excluded. The large bowel is grossly unremarkable with the exception of scattered diverticula. Liver, spleen, pancreas, and bilateral adrenal glands are normal. Kidneys demonstrate chronic atrophic changes along with suspected staghorn calculus in the right renal pelvis with chronic inflammatory changes to the proximal collecting system. No associated acute perinephric stranding or acute ureteral obstruction noted. Pelvis is somewhat obscured due to beam hardening artifact from left hip prosthesis, but artifact reduction technique demonstrates relatively normal appearance to the bladder and prostate gland. No ascites. No free air. No adenopathy. Abdominal aorta without aneurysm or dissection. Musculoskeletal structures are intact. Lung bases demonstrate moderate pleural effusions and bibasilar atelectasis. IMPRESSION: 1. Large 20 cm midline ventral hernia containing mesenteric fat and multiple loops of mildly prominent fluid-filled small bowel raising the possibility of intermittent/partial obstruction. No caprice small bowel obstruction is otherwise noted. No free air. No ascites. 2. Moderate bilateral pleural effusions and bibasilar atelectasis. 3. Staghorn calculus and chronic inflammatory changes noted in the right renal pelvis without acute perinephric stranding or hydronephrosis. 4. Further chronic changes as above. CXR: No noted acute pathology. L basilar atelectasis PROGNOSIS: Good ACTIVITY: As tolerated DIET: Regular DISCHARGE PLAN: Home with PCP follow up and surgery follow up within 4 weeks DISPOSITION: Home DISCHARGE INSTRUCTIONS: 1. Home with PCP follow up ITEMS TO FOLLOWUP ON ON OUTPATIENT: 1. Ventral hernia 2. Morbid obesity DISCHARGE CONDITION: Stable TIME SPENT ON DISCHARGE: 34 minutes. Vital Signs/I&Os Vital Signs Date Time Temp Pulse Resp B/P (MAP) Pulse Ox O2 Delivery O2 Flow Rate FiO2 04/07/20 14:00 98.2 68 18 125/72 (89) 97 Room Air I&O- Last 24 Hours up to 6 AM 04/07/20 06:00 Intake Total 2970 ml Output Total 550 ml Balance 2420 ml Laboratory Data Labs 24H Laboratory Tests 2 04/06/20 16:55: Lactic Acid Followup at 4 Hours 1.6 04/07/20 06:41: Nucleated Red Blood Cells % (auto) 0.0, Anion Gap 5L, Glomerular Filtration Rate > 60.0, Calcium Level 7.4L, Magnesium Level 2.0 CBC/BMP Laboratory Tests 04/07/20 06:41 Microbiology Microbiology 04/06/20 Urine Culture - Final, Complete 04/06/20 Blood Culture - Preliminary, Resulted 04/06/20 Blood Culture - Preliminary, Resulted No growth after 24 hours . All specim... Discharge Medications Scheduled Cephalexin (Cephalexin) 500 Mg Capsule, 500 MG PO BID, (Reported) FILLED 03/30/20 FOR 7 DAYS Metoprolol Succinate (Metoprolol Succinate) 50 Mg Tab.er.24h, 50 MG PO DAILY, (Reported) Rivaroxaban (Xarelto) 20 Mg Tablet, 20 MG PO QPM, (Reported) Sertraline HCl (Sertraline HCl) 100 Mg Tablet, 100 MG PO DAILY, (Reported) Zolpidem Tartrate (Zolpidem Tartrate) 10 Mg Tablet, 10 MG PO QHS, (Reported) Allergies Coded Allergies: No Known Allergies (Verified , 07/12/07) NATE BEDOYA MD Apr 07, 2020 16:40
--- NOTE | 2020-04-07 16:43 | IPNPDOC ---
Text Note Date of Service The patient was seen on 04/07/20. NOTE SUBJECTIVE: -No acute issues overnight VITAL SIGNS: Please see below. GENERAL APPEARANCE: Morbidly obese,well developed /NAD HEENT: no scleral icterus, PERRLA, EOMI, MMM CARDIOVASCULAR: RRR, NMRG, + BLE edema LUNGS: Diminished on my exam but otherwise clear, no caprice crackles or wheezing ABDOMEN: Obese, large ventral midline hernia now reduced, NTND SKIN: Chronic stasis dermatitis changes on BLE EXT: chronic dependent LE edema, WWP, with stasis dermatitis, hyperpigmented and hyperkeratotic LEs. NEUROLOGICAL: CN -12 intact, speech not dysarthric, 5/5 strength in all 4 extremities PSYCHIATRIC: A&Ox 3, able to understand and follow all commands LABORATORY DATA: stable WBC 6.8 hgb 10.8 platelets 131 na 140 K 3.7 Cr 0.68 IMAGING: CT A/P: There is a relatively large midline ventral hernia measuring roughly 20 cm and containing mesenteric fat as well as mildly prominent fluid-filled loops of small bowel. The afferent and efferent loops as well as proximal and distal loops of small bowel within the abdomen demonstrate mild fluid distension and a mild associated partial/intermittent obstruction cannot be excluded. The large bowel is grossly unremarkable with the exception of scattered diverticula. Liver, spleen, pancreas, and bilateral adrenal glands are normal. Kidneys demonstrate chronic atrophic changes along with suspected staghorn calculus in the right renal pelvis with chronic inflammatory changes to the proximal collecting system. No associated acute perinephric stranding or acute ureteral obstruction noted. Pelvis is somewhat obscured due to beam hardening artifact from left hip prosthesis, but artifact reduction technique demonstrates relatively normal appearance to the bladder and prostate gland. No ascites. No free air. No adenopathy. Abdominal aorta without aneurysm or dissection. Musculoskeletal structures are intact. Lung bases demonstrate moderate pleural effusions and bibasilar atelectasis. IMPRESSION: 1. Large 20 cm midline ventral hernia containing mesenteric fat and multiple loops of mildly prominent fluid-filled small bowel raising the possibility of intermittent/partial obstruction. No caprice small bowel obstruction is otherwise noted. No free air. No ascites. 2. Moderate bilateral pleural effusions and bibasilar atelectasis. 3. Staghorn calculus and chronic inflammatory changes noted in the right renal pelvis without acute perinephric stranding or hydronephrosis. 4. Further chronic changes as above. CXR: No noted acute pathology. L basilar atelectasis MICROBIOLOGY: Please see below. ASSESSMENT: 64 yr old M with a history of an incarcerated ventral hernia s/p repair in 2019, morbid obesity, diastolic CHF, NETTE not on CPAP, Afib on Xarelto, who presents to the ED reporting acute abdominal pain and found to have a partial incarceration of his small bowel. PLAN: Partial SBO: per CT i/s/o of prior hernia repair. -Dr. Gordillo consulted --> held AC, now resolved this morning --> to follow up outpatient -No significant pain at this time -Restore regular diet Atrial Fibrillation -continue metoprolol with hold parameters -holding AC for possible surgery Grade 1 Diastolic CHF -currently well compensated. Obesity w BMI of 67 complicates care -PCP for referral to Bariatric surgeon Insomnia -continue home zolpidem DVT:TEDs and SCDs Dispo: cleared by surgery for home discharge. Will discharge home at this time. VS,Fishbone, I+O VS, Fishbone, I+O Laboratory Tests 04/06/20 11:44 04/07/20 06:41 Vital Signs Date Time Temp Pulse Resp B/P (MAP) Pulse Ox O2 Delivery O2 Flow Rate FiO2 04/07/20 05:44 98.5 70 18 123/72 (89) 96 Room Air I&O- Last 24 Hours up to 6 AM 04/07/20 06:00 Intake Total 2970 ml Output Total 550 ml Balance 2420 ml NATE BEDOYA MD Apr 07, 2020 08:28
[2020-04-07] MEDS ORDERED: cefTRIAXone SOD 1 GM in D5W MINI-BAG PLUS 50 ML IV SCH (18:00)
[2020-04-07] MEDS ORDERED: zolPIDEM TARTRATE 5 MG TAB PO SCH (21:00)
== END 2020-04-07 17:20 | disposition home or self-care (01) | DRG 394 ==
LOC: EDBD 11:12 → M ED 11:12 → M ED INP 15:11 → ENRESERVDT 15:44 → ENRESERVTM 15:44 → M MS5PR 18:02
PROVIDERS: ADMIT Internal Medicine; ATTEND Internal Medicine
DX: K43.6 Other and unspecified ventral hernia with obstruction, without gangrene (principal); Z68.44 Body mass index [BMI] 60.0-69.9, adult; I50.32 Chronic diastolic (congestive) heart failure; K59.04 Chronic idiopathic constipation; E66.01 Morbid (severe) obesity due to excess calories; G47.33 Obstructive sleep apnea (adult) (pediatric); I48.91 Unspecified atrial fibrillation; G47.00 Insomnia, unspecified; Z87.891 Personal history of nicotine dependence; Z79.01 Long term (current) use of anticoagulants; Z79.899 Other long term (current) drug therapy; Z20.828 Contact with and (suspected) exposure to other viral communicable diseases

== ENCOUNTER 2020-05-23 23:32 | Inpatient (IN) | payer MEDICARE ==
[~2020-05-23] VITALS: Ht 160 cm; Wt 177.6 kg
[~2020-05-23 23:32] MED LIST changes: +CEPH500C PO; +METO1TAB7 PO; +SERT-138 PO; +ZOLP10TA2 PO
--- OUTSIDE RECORDS SUMMARY | 2020-05-23 23:36 | CCD | Continuity of Care Document ---
Author Author Ta CROSS [facility] Organization Unknown Address [address] [address] Phone [phone] Care Team Providers Care Hourly Associate Name Role Phone Jeannette Cross [facility] AUTM [phone] [facility] [employer] AUTM [phone] [facility] AUT[facility] [phone] Problems Active Problems Provider Date Morbid obesity Gia Segura M.D. Onset: 9 Type 2 diabetes mellitus Gia Segura M.D. Onset: 06/11 Hypothyroidism Gia Segura M.D. Onset: 9 Carpal tunnel syndrome Gia Segura M.D. Onset: 2018 Arthritis Gia Segura M.D. Onset: 9 History of total replacement of left hip joint Gia jasmine M.D. Onset: 06/23/2018 Anxiety Gia Segura M.D. Onset: 9 Repair of umbilical hernia Gia Segura M.D. Onset: Social History Type Date Description Comments Sex Unknown ETOH Use Denies alcohol use Tobacco Use Start: Unknown Patient is a current smoker, smo kes every day started age 18 stopped age 48 2 packs a day now smokes 2 cigarettes a day Tobacco Use Start: Unknown End: Unknown Patient is a former smoker 06/16/19 Allergies, Adverse Reactions, Alerts Description No Known Drug Allergies Medications Active Medications SIG Qnty Indications Ordering Provide r Date Zolpidem Tartrate 10mg Tablets take one tablet by mouth every night at bedtime as needed for insomnia 30tabs Lanre Gurrola MD 03/22/2020 Sertraline HCL 100mg Tablets 1 by mouth every day 30tabs Lanre Gurrola MD 02/27/2020 Toprol XL 50mg Tablets ER 24HR Take one by mouth once daily 30tabs Lanre Gurrola MD 0 Nystop 232026Hckg/GM Powder Apply To Affected Areas 2-3X/Day prn 30gm Nataliia Levin 01/31/2019 Furosemide 40mg Tablets Take One Tablet By Mouth Every Morning Gia Segura M.D. 06/11 Xarelto 20mg Tablets take one tablet by mouth every day with food Unknown History Medications Cephalexin 500mg Capsules take one tablet by mouth 2 times daily x 7 days 14caps GHANSHYAM Salter JR 03/30/2020 - 05/01/2020 Nitrofurantoin Macrocrystal 100mg Capsules 1 by mouth twice a day 14caps GHANSHYAM William JR 01/26/2020 - 02/27/2020 Medications Administered in Office Medication SIG Qnty Indications Ordering Provider Date Administration Of Flu Vaccine Inj ection GHANSHYAM William JR 020 Immunizations CPT Code Status Date Vaccine Lot # [id number] Given 03/30/2020 Influenza Vaccin e Quadrivalent Preser/Antibiotic Free Im Use [id number] Vital Signs Date Vital Result Comment 05/01/2020 2:18pm BP Systolic 110 mmHg LT Arm BP Diastolic 80 mmHg LT Arm Heart Rate 52 /min Height 65.25 inches 5'5.25" 03/30/2020 1:55pm BP Systolic 112 mmHg BP Diastolic 70 mmHg Heart Rate 97 /min Height 65.25 inches 5'5.25" O2 % BldC Oximetry 94 % RM Air Results Test Acquired Date Facility Test Result H/L Range Note Laboratory test finding 04/06/[address] [address] [phone] Sars Covid-19 Amplification NEGATIVE Normal Nega tive 1 Ua W/ Reflex To Culture 04/06/[address] [address] [phone] Appearance, Urine RFX CLOUDY High Clear Color, Urine RFX RED High Yellow PH,Urine RFX 6.0 units Normal 5.0-9.0 Specific Ider Ur Auto RFX 1.013 Normal 1.002-1.035 Protein, Urine Auto RFX 2+ mg/dL High Negative Glucose, Urine (Ua) Auto RFX NEGATIVE mg/dL Normal Negative Ketone, Urine Auto RFX 1+ mg/dL High Negative Urobilinogen, Urine Auto RFX 4.0 mg/dL High 0.0-2.0 Bilirubin, Urine Auto RFX NEGATIVE Normal Negative Nitrite, Urine Auto RFX NEGATIVE Normal Negative Leukocyte Esterase Ur Auto RFX 1+ High Negative Blood, Urine Blood RFX 3+ High Negative WBC, Urine Auto RFX 63 /HPF High 0-3 RBC, Urine Auto RFX TNTC /HPF High 0-3 Bacteria, Urine Auto RFX NEGATIVE Normal Negative Squam Epithelial Cell Ur Aurfx 2 /HPF Normal 0-6 Mucus, Urine RFX SMALL Normal Negative Hyaline Cast, Urine Auto RFX 0 /LPF Normal 0-1 CBC With Differential 04/06/2020 [id number] [place] [address] [phone] White Blood Count 8.7 10 Normal 4.0-10.0 Red Blood Count 3.92 10 Low 4.30-6.10 Hemoglobin 11.6 g/dL Low 13.5-17.5 Hematocrit 37.8 % Low 42.0-52.0 Mean Corpuscular Volume 96.4 fl High 80.0-96.0 Mean Corpuscular Hemoglobin 29.6 pg Normal 27.0-33.0 Mean Corpuscular HGB Conc 30.7 g/dL Low 32.0-36.5 Red Cell Distribution Width 15.4 % High 11.5-14.5 Platelet Count, Automated 144 10 Low 150-450 Neutrophils % 86.7 % High 36.0-66.0 Lymph % 5.9 % Low 24.0-44.0 [place]ham % 6.3 % High 0.0-5.0 Eos % 0.2 % Normal 0.0-3.0 Baso % 0.2 % Normal 0.0-1.0 Immature Granulocyte % 0.7 % Normal 0-3.0 Nucleated Red Blood Cell % 0.0 % Normal 0-0 Neutrophils # 7.6 10 Normal 1.5-8.5 Lymph # 0.5 10 Low 1.5-5.0 [place] # 0.6 10 Normal 0.0-0.8 Eos # 0.0 10 Normal 0.0-0.5 Baso # 0.0 10 Normal 0.0-0.2 Cardiac Marker Panel 04/06/2020 [facility] enter [address] [place] [address] [phone] CPK Creatine Phosphokinase 36 U/L Low 39-30 8 CK-MB Value Mass < 1.0 NG/ML Normal <3.6 MB/CK Relative Index 2.78 Normal < Or =4 2 Troponin I < 0.02 NG/ML Normal < 0.10 3 Liver Profile 04/06/2020 [facility] nter [address] [place] [address] [phone] Ast/Sgot 24 U/L Normal 7-37 Alt/SGPT 13 U/L Normal 12-78 Alkaline Phosphatase 133 U/L High 45-117 Bilirubin,Total 0.9 mg/dL Normal 0.2-1.0 Bilirubin,Direct 0.4 mg/dL High 0.0-0.2 Total Protein 7.7 GM/DL Normal 6.4-8.2 Albumin 2.9 GM/DL Low 3.2-5.2 Albumin/Globulin Ratio 0.6 Normal Basic Metabolic Profile 04/06/[address] [address] [phone] Glucose, Fasting 115 mg/dL High 70-100 Blood Urea Nitrogen 10 mg/dL Normal 7-18 Creatinine For GFR 0.96 mg/dL Normal 0.70-1.30 Glomerular Filtration Rate > 60.0 Normal >49 4 Sodium Level 138 mEq/L Normal 136-145 Potassium Serum 3.8 mEq/L Normal 3.5-5.1 Chloride Level 104 mEq/L Normal 98-107 Carbon Dioxide Level 28 mEq/L Normal 21-32 Anion Gap 6 mEq/L Low 8-16 Calcium Level 8.1 mg/dL Low 8.8-10.2 Laboratory test finding 04/06/2020 [facility] [address] [place], [place] [id number] [phone] Amylase 20 U/L Low 25-115 5 Lipase 45 U/L Low 73-393 6 Type & Screen -Incl Blood Type,Cameron,AB SC 04/06/2020 [place] [address] [phone] Blood Type O POSITIVE Normal AB Screen (Indirect Venita)Vis NEGATIVE Normal Laboratory test finding 04/06/2020 [place] [address] [phone] Lactic Acid Sepsis Protocol 2.2 mmol/L Critical high 0 .4-2.0 7 Complete Blood Count 01/26/2020 [facility] [employer] Mechanic: [place] [address] [phone] WBC 7.5 x10*3/UL 4.1 - 10.9 RBC 4.43 x10*6/UL 4.20 - 6.30 Hemoglobin 13.8 g/dL 12.0 - 18.0 Hematocrit 40.4 % 37.0 - 51.0 MCV 91.0 fL 80.0 - 97.0 MCH 31.2 pg 26.0 - 32.0 MCHC 34.2 g/dL 31.0 - 38.0 RDW 13.1 % 11.6 - 13.7 PLT 190 x10*3/UL 140 - 440 MPV 8.5 FL 7.8 - 11.0 Lymph % 17.3 % 10.0 - 58.5 Mid % 4.4 % 1.7 - 9.3 Neut % 78.3 % 37.0 - 92.0 Lymph # 1.3 x10*3/UL 0.6 - 4.1 Mid # 0.3 x10*3/UL 0.1 - 0.6 Neut # 5.9 x10*3/UL 2.0 - 7.8 Laboratory test finding 01/26/2020 [facility] [employer] Flight Mechanic: [place] [address] [phone] Thyroid Stimulating Hormone 7.15 uIU/mL High 0.3 6 - 3.74 Ua Dipstick Only 01/26/2020 [facility] [employer] Flight Mechanic: [place] [address] [phone] Urine Color DARK YELLOW Abnormal Yellow Urine Appearance TURBID Abnormal Clear Urine PH 6.5 units 5.0 - 9.0 Urine Specific Ider 1.020 1.005 - 1.030 Urine Leukocytes LARGE Abnormal Negative Urine Blood LARGE Abnormal Negative Urine Protein 2+ Abnormal Negative -Trace Urine Glucose NEGATIVE mg/dL Negative Urine Nitrite POSITIVE Abnormal Negative Urine Ketone NEGATIVE mg/dL Negative Urine Bilirubin NEGATIVE Negative Urine Urobilinogen 2.0 mg/dl mg/dL Abnormal 0.2 - 1.0 1 A false negative result may occur if a specimen is improperly collected, transported or handled. False negative results may also occur if inadequate numbers of organisms are present in the specimen. As with any molecular test, mutations within the target regions of Xpert Xpress SARS-CoV-2 could affect primer and/or probe binding resulting in failure to detect the presence of virus. This test cannot rule out diseases caused by other bacterial or viral pathogens. DISCLAIMER: Testing was performed using the [employer] SARS-CoV-2 test. This test was developed and its performance characteristics determined by [employer]. This test has not been FDA cleared or approved. This test has been authorized by FDA under an Emergency Use Authorization (EUA). This test is only authorized for the duration of time the declaration that circumstances exist justifying the authorization of the emergency use of in vitro diagnostic tests for detection of SARS-CoV-2 virus and/or diagnosis of COVID-19 infection under section 564(b)(1) of the Act, 21 U.S.C. 360bbb-3(b)(1), unless the authorization is terminated or revoked sooner. 2 DIAGNOSIS CRITERIA MMB ng/ml Relative Index (RI) NON-AMI < or = 5 N/A DAWSON ZONE > 5 < or = 4 AMI > 5 > 4 3 Troponin I Reference Interva l for [employer] LOCI: 99th Percentile= 0.00-0.045 ng/ml Risk Stratification: <= 0.10 ng/ml Decreased Risk for Adverse Clinical Events. 0.10-1.50 ng/ml Increased Risk for Adv erse Clinical Events. Evaluation of additional criterion and/or repeat testing in 2-6 hours is suggested to rule out myocardial damage. >= 1.50 ng/ml Indicative of Myocardial Injury. 4 Units are mL/min/1.73 m2 Chronic Kidney Disease Staging per NKF: Stage I & II GFR >=60 Normal to Mildly Decreased Stage III GFR 30-59 Moderately Decreased Stage IV GFR 15-29 Severely Decreased Stage V GFR <15 Very Little GFR Left ESRD GFR <15 on [employer] 5 note:<nlbl:demographic_chang ed> 6 note:<nlbl:demographic_[facility]> 7 BACK AND VERIFIED BY Procedures Date Code Description Status 01/26/2020 71126 EKG/Interpretation & Report Comp leted Medical Devices Description No Information Available Encounters Type Date Location Provider Dx Diagnosis Office Visit 05/01/2020 2:40p [facility] PSamy ruiz, [employer] 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 S31.809A Unspecified open wound of unspecified bu ttock, init encntr I48.91 Unspecified atrial fibrillat ion G47.00 Insomnia, unspecified E02 Subclinical iodine-deficienc y hypothyroidism K42.9 Umbilical hernia without obs truction or gangrene Z91.19 Patient's noncompliance w ot h medical treatment and regimen Z55.0 Illiteracy and low-level lit eracy N20.0 Calculus of kidney F17.210 Nicotine dependence, cigaret enrique, uncomplicated E66.01 Morbid (severe) obesity due to excess calories Z68.44 Body mass index [BMI] 60.0-6 9.9, adult Office Visit 03/30/2020 2:00p [facility], [place] S31.801P Unspecified open wound of un specified buttock, init encntr Z23 Encounter for immunization Office Visit 02/27/2020 2[facility]p [facility] [place] F41.9 Anxiety disorder, unspecifie d I48.91 Unspecified atrial fibrillat ion G47.00 Insomnia, unspecified Z55.0 Illiteracy and low-level lit eracy Office Visit 01/26/2020 11:20a [facility] Partida JR, PA I48.91 Unspecified atrial fibrillat ion G47.00 Insomnia, unspecified E02 Subclinical iodine-deficienc y hypothyroidism R31.0 Gross hematuria N39.0 Urinary tract infection, sit e not specified Assessments Date Code Description Provider 05/01/2020 S31.809A Unspecified open wou nd of unspecified buttock, initial encounter Jeannette Cross, [facility] 05/01/2020 I48.91 Unspecified atrial fibrillation Jeannette Cross, [facility] 05/01/2020 G47.00 Insomnia, unspecified Jeannette Vargas rra, [facility] 05/01/2020 E02 Subclinical iodine-deficiency hy pothyroidism Jeannette Cross, [facility] 05/01/2020 K42.9 Umbilical hernia without obstruc tion or gangrene Jeannette Cross, [facility] 05/01/2020 Z91.19 Patient's noncomplia nce with other medical treatment and regimen Jeannette Cross, [facility] 05/01/2020 Z55.0 Illiteracy and low-level literac y Jeannette Cross, [facility] 05/01/2020 N20.0 Calculus of kidney Jeannettefrancisco Cross , [facility] 05/01/2020 F17.210 Nicotine dependence, cigarettes, uncomplicated Jeannette Cross, [facility] 05/01/2020 E66.01 Morbid (severe) obesity due to e xcess calories Jeannette Cross, [facility] 05/01/2020 Z68.44 Body mass index [BMI] 60.0-69.9, adult Jeannette Cross, [facility] 03/30/2020 S31.809A Unspecified open wou nd of unspecified buttock, initial encounter GHANSHYAM William JR 03/30/2020 Z23 Encounter for immunization GHANSHYAM Haji JR 02/27/2020 F41.9 Anxiety disorder, unspecified Ro GHANSHYAM Jimenez JR 02/27/2020 I48.91 Unspecified atrial fibrillation GHANSHYAM William JR 02/27/2020 G47.00 Insomnia, unspecified GHANSHYAM Giles JR 02/27/2020 Z55.0 Illiteracy and low-level literac y GHANSHYAM William JR 01/26/2020 I48.91 Unspecified atrial fibrillation GHANSHYAM William JR 01/26/2020 G47.00 Insomnia, unspecified GHANSHYAM Giles JR 01/26/2020 E02 Subclinical iodine-deficiency hy pothyroidism GHANSHYAM William JR 01/26/2020 R31.0 Gross hematuria GHANSHYAM Salter JR 01/26/2020 N39.0 Urinary tract infection, site no t specified GHANSHYAM William JR Plan of Treatment 05/01/2020 - MEREDITH Lew* S31.809A Unspecified open wound of unspecified buttock, initial encounter* Comments:* Continues to have home health working with him twice weekly. * I48.91 Unspecified atrial fibrillation* Comments:* Follows with cardiology, follows up there again next month. He is continued on Xarelto and Toprol. * G47.00 Insomnia, unspecified* Comments:* Uses Zolpidem which has already been refilled, istop was consulted. * E02 Subclinical iodine-deficiency hypothyroidism* Comments:* Does not warrant treatment at this time. * K42.9 Umbilical hernia without obstruction or gangrene* Comments:* Complicated most recently with SBO. No further pain, nausea/vomiting. Weight loss is encouraged so he may be optimized for surgical intervention as per Dr. Michele doherty. * Z91.19 Patient's noncompliance with other medical treatment and regimen* Comments:* Unfortunately due to his noncompliance to medical appointments and treatment regimen, he has been discharged from our practice effective 05/19/2020. He reports he never got the letter in the mail. I have printed the letter for him for his records and he took it today. I discussed that we have provided 30 days of medication and medical care as of the aforementioned date of discharge (04/18/20) and he will be required to find another physician to assume his care and prescriptions effective after 05/19/20. * Z55.0 Illiteracy and low-level literacy * N20.0 Calculus of kidney* Comments:* He tells me that he has follow up with urology upcoming. * F17.210 Nicotine dependence, cigarettes, uncomplicated * E66.01 Morbid (severe) obesity due to excess calories* Comments:* Weight loss is encouraged. * Z68.44 Body mass index [BMI] 60.0-69.9, adult * All * Comments:* COVID precautions are discussed and social distancing/mask use/ frequent hand washing and sanitizing are encouraged. 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 DX : NEW ONSET ATRIAL FIB NO PRIOR AUTH REQ Closed 02/13/202021513 [address] [place] [place] [address] [phone]
--- OUTSIDE RECORDS SUMMARY | 2020-05-23 23:37 | CCD | Continuity of Care Document ---
Author Author Ta RAMEY PA Organization Unknown Address [address] [address] Phone [phone] Care Team Providers Care Geological Engineering Teacher Name Role Phone Jeannette Gutiérrez SUPPLY CHAIN VICE PRESIDENT AUTM [phone] [facility] AUTM [phone] Problems Active Problems Provider Date Morbid obesity [...] M.D. Onset: 9 Repair of umbilical hernia Gai Segura M.D. Onset: Social History Type Date [...] SIG Qnty Indications Ordering Provide r Date Cephalexin 500mg Capsules take one tablet by mouth 2 times daily x 7 days 14caps GHANSHYAM Salter JR 03/30/2020 Zolpidem Tartrate 10mg Tablets take one tablet by mouth every night at bedtime as needed for insomnia 30tabs GHANSHYAM William JR 03/22/2020 Sertraline HCL 100mg Tablets 1 by mouth every day 90tabs GHANSHYAM William JR 020 Toprol XL 50mg Tablets ER 24HR Take one by mouth once daily GHANSHYAM William JR 2019 Nystop 580352Savo/GM Powder Apply To Affected Areas 2-3X/Day prn 30gm Nataliia Levin 01/31/2019 Furosemide 40mg Tablets Take One Tablet By Mouth Every Morning Gia Segura M.D. 06/11 Xarelto 20mg Tablets take one tablet by mouth every day with food Unknown History Medications Nitrofurantoin Macrocrystal 100mg Capsules 1 by mouth twice a day 14caps GHANSHYAM William JR 01/26/2020 - 02/27/2020 Medications Administered in Office Medication SIG Qnty Indications Ordering Provider Date Administration Of Flu Vaccine Inj ection GHANSHYAM William JR 020 Immunizations CPT Code Status Date Vaccine Lot # [id number] Given 03/30/2020 Influenza Vaccin e Quadrivalent Preser/Antibiotic Free Im Use [id number] Vital Signs Date Vital Result Comment 03/30/2020 1:55pm BP Systolic 112 mmHg BP Diastolic 70 mmHg Heart Rate 97 /min Height 65.25 inches 5'5.25" O2 % BldC Oximetry 94 % RM Air 02/27/2020 2:09pm Height 65.25 inches 5'5.25" Weight 376.00 lb BMI (Body Mass Index) 62.1 kg/m2 Results Test Acquired Date Facility Test Result H/L Range Note Laboratory test finding 04/06/2020 [facility] [address] [place] [address] [phone] Sars Covid-19 Amplification NEGATIVE Normal Nega tive 1 Ua W/ Reflex To Culture 04/06/2020 [facility] [address] [place], [place] [id number] [phone] Appearance, Urine RFX CLOUDY High Clear Color, Urine RFX RED High Yellow PH,Urine RFX 6.0 units Normal 5.0-9.0 Specific [place] Ur Auto RFX 1.013 Normal 1.002-1.035 Protein, [...] 0-1 CBC With Differential 04/06/2020 [place] [id number] [phone] White Blood Count 8.7 10 Normal 4.0-10.0 [...] 36.0-66.0 Lymph % 5.9 % Low 24.0-44.0 [place] % 6.3 % High 0.0-5.0 Eos % 0.2 % Normal 0.0-3.0 Baso % 0.2 % Normal 0.0-1.0 Immature Granulocyte % 0.7 % Normal 0-3.0 Nucleated Red Blood Cell % 0.0 % Normal 0-0 Neutrophils # 7.6 10 Normal 1.5-8.5 Lymph # 0.5 10 Low 1.5-5.0 [place] # 0.6 10 Normal 0.0-0.8 Eos # 0.0 10 Normal 0.0-0.5 Baso # 0.0 10 Normal 0.0-0.2 Cardiac Marker Panel 04/06/2020 [facility] enter [address] [place] [id number] [phone] CPK Creatine Phosphokinase 36 U/L Low 39-30 8 CK-MB Value Mass < 1.0 NG/ML Normal <3.6 MB/CK Relative Index 2.78 Normal < Or =4 2 Troponin I < 0.02 NG/ML Normal < 0.10 3 Liver Profile 04/06/2020 [facility] nter [address] [place] [address] [phone] Ast/Sgot 24 U/L Normal 7-37 Alt/SGPT 13 U/L Normal 12-78 Alkaline Phosphatase 133 U/L High 45-117 Bilirubin,Total 0.9 mg/dL Normal 0.2-1.0 Bilirubin,Direct 0.4 mg/dL High 0.0-0.2 Total Protein 7.7 GM/DL Normal 6.4-8.2 Albumin 2.9 GM/DL Low 3.2-5.2 Albumin/Globulin Ratio 0.6 Normal Basic Metabolic Profile 04/06/[address] [address] [phone] Glucose, Fasting 115 mg/dL High 70-100 Blood [...] mg/dL Low 8.8-10.2 Laboratory test finding 04/06/2020 [facility] [address] [place] [address] [phone] Amylase 20 U/L Low 25-115 5 Lipase 45 U/L Low 73-393 6 Type & Screen -Incl Blood Type,Cameron,AB SC 04/06/2020 [facility] [address] [place] [address] [phone] Blood Type O POSITIVE Normal AB Screen (Indirect Venita)Vis NEGATIVE Normal Laboratory test finding 04/06/2020 [place] [address] [place] [address] [phone] Lactic Acid Sepsis Protocol 2.2 mmol/L Critical high 0 .4-2.0 7 Complete Blood Count 01/26/2020 [facility] Retail Service Technician: [place] [address] [phone] WBC 7.5 x10*3/UL 4.1 - 10.9 RBC [...] 2.0 - 7.8 Laboratory test finding 01/26/2020 [facility] Retail Service Technician: [place] Lan[place] [address] [phone] Thyroid Stimulating Hormone 7.15 uIU/mL High 0.3 6 - 3.74 Ua Dipstick Only 01/26/2020 [facility] Retail Service Technician: [place] [address] [phone] Urine Color DARK YELLOW Abnormal Yellow Urine Appearance TURBID Abnormal Clear Urine PH 6.5 units 5.0 - 9.0 Urine Specific [place] 1.020 1.005 - 1.030 Urine Leukocytes LARGE [...] pathogens. DISCLAIMER: Testing was performed using the [employer] SARS-CoV-2 test. This test was developed and its performance characteristics determined by [employer]. This test has not been FDA cleared [...] Troponin I Reference Interva l for Siemens DropMat LOCI: 99th Percentile= 0.00-0.045 ng/ml Risk Stratification: [...] Little GFR Left ESRD GFR <15 on MISSILEMAN 5 note:<nlbl:demographic_chang ed> 6 note:<nlbl:demographic_chang ed> 7 BACK AND VERIFIED BY [facility] Procedures Date Code Description Status 01/26/2020 57848 EKG/Interpretation & Report Comp leted Medical Devices Description No Information Available Encounters Type Date Location Provider Dx Diagnosis Office Visit 03/30/2020 2:00p [facility] PGHANSHYAM Castillo JR S31.809A Unspecified open wound of un specified buttock, init encntr Z23 Encounter for immunization Office Visit 02/27/2020 2:00p [facility], [place] F41.9 Anxiety disorder, unspecifie d I48.91 Unspecified atrial fibrillat ion G47.00 Insomnia, unspecified Z55.0 Illiteracy and low-level lit eracy Office Visit 01/26/2020 11:20a [facility] PGHANSHYAM Castillo JR I48.91 Unspecified atrial fibrillat ion G47.00 Insomnia, unspecified E02 Subclinical iodine-deficienc y hypothyroidism R31.0 Gross hematuria N39.0 Urinary tract infection, sit e not specified Office Visit 10/20/2019 2:00p [facility] PMarjorie Tabares,SUPPLY CHAIN VICE PRESIDENT G47.00 Insomnia, unspecified F34.1 Dysthymic disorder F41.9 Anxiety disorder, unspecifie d Z55.0 Illiteracy and low-level lit eracy Assessments Date Code Description Provider 03/30/2020 S31.809A Unspecified open wou nd of unspecified buttock, initial encounter GHANSHYAM William JR 03/30/2020 Z23 Encounter for immunization GHANSHYAM Haji JR 02/27/2020 F41.9 Anxiety disorder, unspecified GHANSHYAM Shannon JR 02/27/2020 I48.91 Unspecified atrial fibrillation GHANSHYAM [...] site no t specified GHANSHYAM William JR 10/20/2019 G47.00 Insomnia, unspecified Avel Ag,MEREDITH 10/20/2019 F34.1 Dysthymic disorder Collette Ag,SUPPLY CHAIN VICE PRESIDENT 10/20/2019 F41.9 Anxiety disorder, unspecified Ko Tiffany caban,SUPPLY CHAIN VICE PRESIDENT 10/20/2019 Z55.0 Illiteracy and low-level literac y Tiffany Ag FNP Plan of Treatment Future Appointment(s):* 04/18/2020 11:20 am - GHANSHYAM William JR at [facility] * 05/01/2020 2:40 pm - MEREDITH Lew at [facility] 03/30/2020 - GHANSHYAM William JR* S31.809A Unspecified open wound of unspecified buttock, initial encounter* Comments:* Will start Keflex 500mg BID, also have [facility] go 2-3x a week for wound care, area was cleansed and dressed with ABD today, patient states it will likely fall off when he uses the bathroom. 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 CONSULT FOR NEW ONS ET ATRIAL FIB Patient Notified 02/15/2020[address] [place] [address] [phone] [facility]PL ER DX: NEW ONSET ATRIAL FIB AUTH: [id number] EXP 03/12/20 Closed 02/13/202081381 [address] Carlton [address] [place] [address] [phone] [facility] EXERCISE STRESS TEST DX : NEW ONSET ATRIAL FIB NO PRIOR AUTH REQ Closed 02/13/202083153 [address] Carlton [address] [place] [address] [phone]
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
--- OUTSIDE RECORDS SUMMARY | 2020-05-23 23:37 | CCD | Continuity of Care Document ---
Author Author Ta GUTIÉRREZ [facility] Organization Unknown Address [address] [address] Phone [phone] Care Team Providers Care Story Teller Name Role Phone Jeannette Gutiérrez [facility] AUTM [phone] [facility] AUTM [phone] [facility] AUTM [phone] Problems Active Problems Provider Date Morbid obesity [...] daily 30tabs Lanre Gurrola MD 0 Nystop 996911Bfgq/GM Powder Apply To Affected Areas 2-3X/Day prn [...] CPT Code Status Date Vaccine Lot # [id number] Given 03/30/2020 Influenza Vaccin e Quadrivalent Preser/Antibiotic Free Im Use [id number] Vital Signs Date Vital Result Comment 05/01/2020 [...] H/L Range Note Laboratory test finding 04/06/[address] [address] [phone] Sars Covid-19 Amplification NEGATIVE Normal Nega tive 1 Ua W/ Reflex To Culture 04/06/[address] [address] [phone] Appearance, Urine RFX CLOUDY High Clear Color, Urine RFX RED High Yellow PH,Urine RFX 6.0 units Normal 5.0-9.0 Specific Levels Ur Auto RFX 1.013 Normal 1.002-1.035 Protein, [...] /LPF Normal 0-1 CBC With Differential 04/06/2020 [place] [address] [place] [address] [phone] White Blood Count 8.7 10 Normal 4.0-10.0 [...] 36.0-66.0 Lymph % 5.9 % Low 24.0-44.0 [place] % 6.3 % High 0.0-5.0 Eos % 0.2 % Normal 0.0-3.0 Baso % 0.2 % Normal 0.0-1.0 Immature Granulocyte % 0.7 % Normal 0-3.0 Nucleated Red Blood Cell % 0.0 % Normal 0-0 Neutrophils # 7.6 10 Normal 1.5-8.5 Lymph # 0.5 10 Low 1.5-5.0 [place] # 0.6 10 Normal 0.0-0.8 Eos # 0.0 10 Normal 0.0-0.5 Baso # 0.0 10 Normal 0.0-0.2 Cardiac Marker Panel 04/06/2020 [facility] enter [address] [place] [address] [phone] CPK Creatine Phosphokinase 36 U/L Low 39-30 8 CK-MB Value Mass < 1.0 NG/ML Normal <3.6 MB/CK Relative Index 2.78 Normal < Or =4 2 Troponin I < 0.02 NG/ML Normal < 0.10 3 Liver Profile 04/06/2020 [facility] nter [address] [place] [address] [phone] Ast/Sgot 24 U/L Normal 7-37 Alt/SGPT 13 U/L Normal 12-78 Alkaline Phosphatase 133 U/L High 45-117 Bilirubin,Total 0.9 mg/dL Normal 0.2-1.0 Bilirubin,Direct 0.4 mg/dL High 0.0-0.2 Total Protein 7.7 GM/DL Normal 6.4-8.2 Albumin 2.9 GM/DL Low 3.2-5.2 Albumin/Globulin Ratio 0.6 Normal Basic Metabolic Profile 04/06/[address] [address] [phone] Glucose, Fasting 115 mg/dL High 70-100 Blood [...] mg/dL Low 8.8-10.2 Laboratory test finding 04/06/2020 [facility] [address] [place], [place] [address] [phone] Amylase 20 U/L Low 25-115 5 Lipase 45 U/L Low 73-393 6 Type & Screen -Incl Blood Type,Cameron,AB SC 04/06/2020 [place] [address] [phone] Blood Type O POSITIVE Normal AB Screen (Indirect Venita)Vis NEGATIVE Normal Laboratory test finding 04/06/2020 [place] [address] [phone] Lactic Acid Sepsis Protocol 2.2 mmol/L Critical high 0 .4-2.0 7 Complete Blood Count 01/26/2020 [facility] Peanut Butter Maker: [place] [address] [phone] WBC 7.5 x10*3/UL 4.1 - 10.9 RBC [...] 2.0 - 7.8 Laboratory test finding 01/26/2020 [facility] Peanut Butter Maker: [place] [address] [phone] Thyroid Stimulating Hormone 7.15 uIU/mL High 0.3 6 - 3.74 Ua Dipstick Only 01/26/2020 [facility] Peanut Butter Maker: [place] [address] [phone] Urine Color DARK YELLOW Abnormal Yellow Urine Appearance TURBID Abnormal Clear Urine PH 6.5 units 5.0 - 9.0 Urine Specific Levels 1.020 1.005 - 1.030 Urine Leukocytes LARGE [...] pathogens. DISCLAIMER: Testing was performed using the [employer] SARS-CoV-2 test. This test was developed and its performance characteristics determined by [employer]. This test has not been FDA cleared [...] Troponin I Reference Interva l for Siemens Guestmob LOCI: 99th Percentile= 0.00-0.045 ng/ml Risk Stratification: [...] Little GFR Left ESRD GFR <15 on STONEWORKER 5 note:<nlbl:demographic_chang ed> 6 note:<nlbl:demographic_[facility] ed> 7 BACK AND VERIFIED BY [facility] Procedures Date Code Description Status 01/26/2020 70201 EKG/Interpretation & Report Comp leted Medical Devices Description No Information Available Encounters Type Date Location Provider Dx Diagnosis Office Visit 03/30/2020 2:00p [facility] S31.809A Unspecified open wound of un specified buttock, init encntr Z23 Encounter for immunization Office Visit 02/27/2020 2:00p [facility] Stein JR F41.9 Anxiety disorder, unspecifie d I48.91 Unspecified atrial fibrillat ion G47.00 Insomnia, unspecified Z55.0 Illiteracy and low-level lit eracy Office Visit 01/26/2020 11:20a [facility] Stein JR I48.91 Unspecified atrial fibrillat ion G47.00 Insomnia, unspecified E02 Subclinical iodine-deficienc y hypothyroidism R31.0 Gross hematuria N39.0 Urinary tract infection, sit e not specified Assessments Date Code Description Provider 03/30/2020 S31.809A [...] specified GHANSHYAM William JR Plan of Treatment 03/30/2020 - GHANSHYAM William JR* S31.809A Unspecified [...] to Reason for Referral Status Appt Date [facility] DITCH WORKER CONSULT FOR GROSS HEMATURIA Patient Notified 02/06/202062990 [address], [place] [address] [place] [address] [phone] [facility]ARDIOLOGY CONSULT FOR NEW ONS ET ATRIAL FIB Patient Notified 02/15/202018412 Michael Carlton [address] [place] [address] [phone] [facility] CARDIAC ECHO WITH DOPPL ER DX: NEW ONSET ATRIAL FIB AUTH: [id number] EXP 03/12/20 Closed 02/13/202020319 Michael Carlton [address] [place] [address] [phone] [facility] VALENTINE EXERCISE STRESS TEST DX : NEW ONSET ATRIAL FIB NO PRIOR AUTH REQ Closed 02/13/202065249 Michael Carlton [address] [place] [address] [phone]
--- OUTSIDE RECORDS SUMMARY | 2020-05-23 23:37 | CCD | Continuity of Care Document ---
Author Author Ta RAMEY PA Organization Unknown Address [address] [address] Phone [phone] Care Team Providers Care Filling And Stapling Machine Operator Name Role Phone Jeannette Gutiérrez [employer] AUTM [phone] [facility] AUTM [phone] Problems Active Problems Provider Date Morbid obesity [...] once daily GHANSHYAM William JR 2019 Nystop 221074Pnvp/GM Powder Apply To Affected Areas 2-3X/Day prn 30gm Nataliia Levin 01/31/2019 Furosemide 40mg Tablets Take One Tablet By Mouth Every Morning Gia Segura M.D. 06/11 Xarelto 20mg Tablets take one tablet by mouth every day with food Unknown 00 History Medications Nitrofurantoin Macrocrystal 100mg Capsules 1 by mouth twice a day 14caps GHANSHYAM William JR 01/26/2020 - 02/27/2020 Immunizations CPT Code Status Date Vaccine Lot # [id number] Given 03/30/2020 Influenza Vaccin e Quadrivalent Preser/Antibiotic Free Im Use [id number] Vital Signs Date Vital Result Comment 03/30/2020 1:55pm BP Systolic 112 mmHg BP Diastolic 70 mmHg Heart Rate 97 /min Height 65.25 inches 5'5.25" O2 % BldC Oximetry 94 % RM Air 02/27/2020 2:09pm Height 65.25 inches 5'5.25" Weight 376.00 lb BMI (Body Mass Index) 62.1 kg/m2 Results Test Acquired Date Facility Test Result H/L Range Note Complete Blood Count 01/26/2020 [facility] Online Education Manager: Dr Lanre Gurrola [place], [place] [address] [phone] WBC 7.5 x10*3/UL 4.1 - 10.9 RBC [...] 2.0 - 7.8 Laboratory test finding 01/26/2020 [place] [facility] Online Education Manager: Dr Lanre Gurrola [place], [place] [id number] [phone] Thyroid Stimulating Hormone 7.15 uIU/mL High 0.3 6 - 3.74 Ua Dipstick Only 01/26/2020 [place] gary [facility] Online Education Manager: [place] [address] [phone] Urine Color DARK YELLOW Abnormal Yellow Urine Appearance TURBID Abnormal Clear Urine PH 6.5 units 5.0 - 9.0 Urine Specific [place] 1.020 1.005 - 1.030 Urine Leukocytes LARGE Abnormal Negative Urine Blood LARGE Abnormal Negative Urine Protein 2+ Abnormal Negative -Trace Urine Glucose NEGATIVE mg/dL Negative Urine Nitrite POSITIVE Abnormal Negative Urine Ketone NEGATIVE mg/dL Negative Urine Bilirubin NEGATIVE Negative Urine Urobilinogen 2.0 mg/dl mg/dL Abnormal 0.2 - 1.0 Procedures Date Code Description Status 01/26/2020 11470 EKG/Interpretation & Report Comp leted Medical Devices Description No Information Available Encounters Type Date Location Provider Dx Diagnosis Office Visit 02/27/2020 2:00p [place], [place] F41.9 Anxiety disorder, unspecifie d I48.91 Unspecified atrial fibrillat ion G47.00 Insomnia, unspecified Z55.0 Illiteracy and low-level lit eracy Office Visit 01/26/2020 11:20a [place] Fa[place], PA I48.91 Unspecified atrial fibrillat ion G47.00 Insomnia, unspecified E02 Subclinical iodine-deficienc y hypothyroidism R31.0 Gross hematuria N39.0 Urinary tract infection, sit e not specified Office Visit 10/20/2019 2:00p [facility] [facility] Marjorie Ag FNP G47.00 Insomnia, unspecified F34.1 Dysthymic disorder F41.9 Anxiety disorder, unspecifie d Z55.0 Illiteracy and low-level lit eracy Assessments Date Code Description Provider 03/30/2020 S31.809A Unspecified open wou nd of unspecified buttock, initial encounter GHANSHYAM William JR 03/30/2020 Z23 Encounter for immunization [place] GHANSHYAM Villanueva JR 02/27/2020 F41.9 Anxiety disorder, unspecified Ro [...] Avel Ag,MEREDITH 10/20/2019 F34.1 Dysthymic disorder Collette Ag FNP 10/20/2019 F41.9 Anxiety disorder, unspecified Ko Tiffany caban,MEREDITH 10/20/2019 Z55.0 Illiteracy and low-level literac y Tiffany Ag FNP Plan of Treatment Future Appointment(s):* 05/01/2020 2:40 pm - MEREDITH Lew at [facility] 03/30/2020 - GHANSHYAM William JR* S31.809A [...] to Reason for Referral Status Appt Date [facility] [place] CREWMEMBER CONSULT FOR GROSS HEMATURIA Patient Notified 02/06/2020 [address] [place] [address] [place] [address] [phone] [facility] CONSULT FOR NEW ONS ET ATRIAL FIB Patient Notified 02/15/2020 [address] [place] [address] [phone] [facility] WITH DOPPL ER DX: NEW ONSET ATRIAL FIB AUTH: [id number] EXP 03/12/20 Closed 02/13/2020 [address] [place] [address] [phone] [facility] EXERCISE STRESS TEST DX : NEW ONSET ATRIAL FIB NO PRIOR AUTH REQ Closed 02/13/2020 [address] [place] [address] [phone]
--- OUTSIDE RECORDS SUMMARY | 2020-05-23 23:38 | CCD ---
Author Author [employer] Organization [employer] Address Unknown Phone Unavailable Care Team Providers Care Mainspring Winder And Oiler Name Role Phone JakeYasmine santiago Unavailable PROBLEMS Type Condition ICD9-CM Code [id number] Code Onset Dates Condition S tatus SNOMED Code Notes Problem Staghorn calculus N20.0 Active 531083506 ALLERGIES No Known Allergies ENCOUNTERS from 1955 to 2020-03-23 Encounter Location Date Provider Diagnosis [facility] [address] [place] [address] Mar Yasmine Walls IMMUNIZATIONS No Information SOCIAL HISTORY Tobacco Use: Social History Observation Description Date Details (start date - stop date) Former Smoker Sex Assigned At : Social History Observation Description Sex Assigned At Unknown Language: Question Answer Notes Languages spoken: Pakistani Muslim: Question Answer Notes Muslim No alevism beliefs that would impact health care. Alcohol [...] MEDICATIONS Medication SIG (Take, Route, Frequency, Duration) Start Date En d Date Status Nitrofurantoin Macrocrystal 100 MG as [...] a day for 30 day(s) Active Nystatin 553449 UNIT/GM 1 application Externally Twice a day Active PROCEDURES No Information RESULTS No Results REASON FOR VISIT URINE MEDICAL (GENERAL) HISTORY Type Description Date Medical [...] PLAN OF TREATMENT Next Appt Details Provider Name:Yosef Del Castillo, 2019- 01:30:00 PM, [address], [place], [address], Insurance Providers Payer Name Payer Address Payer Phone Insured Name Patient Relati onship to Insured Coverage Start Date Coverage End Date MEDICARE Part A and B [facility] [id number] [facility] [id number] [phone] JULIANO JENKINS self
--- OUTSIDE RECORDS SUMMARY | 2020-05-23 23:38 | CCD ---
Author Author [employer] Organization [employer] Address Unknown Phone Unavailable Care Team Providers Care Information Architect Name Role Phone JakeYasmine santiago Unavailable PROBLEMS Type Condition ICD9-CM Code IRN82-CH Code Onset Dates Condition S tatus SNOMED Code Notes Problem Staghorn calculus N20.0 Active 714561936 ALLERGIES No Known Allergies ENCOUNTERS from 1955 to 2020-03-28 Encounter Location Date Provider Diagnosis [facility] [address] [place] [address] Mar Yasmine Walls IMMUNIZATIONS No Information SOCIAL HISTORY Tobacco Use: Social History Observation Description Date Details (start date - stop date) Former Smoker Sex Assigned At : Social History Observation Description Sex Assigned At Unknown Language: Question Answer Notes Languages spoken: Indonesian Jain: Question Answer Notes Jain No confucianism beliefs that would impact health care. Alcohol [...] a day for 30 day(s) Active Nystatin 105310 UNIT/GM 1 application Externally Twice a day Active PROCEDURES No Information RESULTS No Results REASON FOR VISIT change CT MEDICAL (GENERAL) HISTORY Type Description Date Medical [...] TREATMENT Next Appt Details Provider Name:Sridhar Hawkins, 2020-04-16 01:00:00 PM, [address], [place], [address], Insurance Providers Payer Name Payer Address Payer Phone Insured Name Patient Relati onship to Insured Coverage Start Date Coverage End Date MEDICARE Part A and B [facility] [address] [facility] [address] [phone] JULIANO JENKINS self
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
--- OUTSIDE RECORDS SUMMARY | 2020-05-23 23:38 | CCD ---
Author Author [employer] Organization [employer] Address Unknown Phone Unavailable Care Team Providers Care Film Librarian Name Role Phone JakeYasmine santiago Unavailable PROBLEMS Type Condition ICD9-CM Code WBX18-TR Code Onset Dates Condition S tatus SNOMED Code Notes Problem Staghorn calculus N20.0 Active 266014526 ALLERGIES No Known Allergies ENCOUNTERS from 1955 to 2020-03-26 Encounter Location Date Provider Diagnosis [facility] [address] [place] [address] Mar Yasmine Walls IMMUNIZATIONS No Information SOCIAL HISTORY Tobacco Use: Social History Observation Description Date Details (start date - stop date) Former Smoker Sex Assigned At : Social History Observation Description Sex Assigned At Unknown Language: Question Answer Notes Languages spoken: Citizen Of [place] Baptist: Question Answer Notes Baptist No holiness beliefs that would impact health care. Alcohol [...] a day for 30 day(s) Active Nystatin 279992 UNIT/GM 1 application Externally Twice a day Active PROCEDURES No Information RESULTS No Results REASON FOR VISIT BMP MEDICAL (GENERAL) HISTORY Type Description Date Medical [...] Next Appt Details Provider Name:Yosef Del Castillo, 2020-03 01:30:00 PM, [address], [place], [address], Insurance Providers Payer Name Payer Address Payer Phone Insured Name Patient Relati onship to Insured Coverage Start Date Coverage End Date MEDICARE Part A and B [facility] [address] [facility] [id number] [phone] JULIANO JENKINS self
--- OUTSIDE RECORDS SUMMARY | 2020-05-23 23:38 | CCD | Continuity of Care Document ---
Author Author Ta STACY PA Organization Unknown Address [address] [address] Phone [phone] Care Team Providers Care Sound Mixer Name Role Phone Jeannette Gutiérrez SIGNAL OPERATOR TECHNICAL AUTM [phone] [facility] [phone] Problems Active Problems Provider Date Morbid obesity [...] once daily GHANSHYAM William JR 2019 Nystop 960743Wdvp/GM Powder Apply To Affected Areas 2-3X/Day prn [...] CPT Code Status Date Vaccine Lot # [id number] Given 03/30/2020 Influenza Vaccin e Quadrivalent Preser/Antibiotic Free Im Use [id number] Vital Signs Date Vital Result Comment 03/30/2020 1:55pm BP Systolic 112 mmHg BP Diastolic 70 mmHg Heart Rate 97 /min Height 65.25 inches 5'5.25" O2 % BldC Oximetry 94 % RM Air 02/27/2020 2:09pm Height 65.25 inches 5'5.25" Weight 376.00 lb BMI (Body Mass Index) 62.1 kg/m2 Results Test Acquired Date Facility Test Result H/L Range Note Complete Blood Count 01/26/2020 [facility] Assistant To The Ceo: Dr Lanre Gurrola [place], [place] [address] [phone] WBC 7.5 x10*3/UL 4.1 - 10.9 RBC [...] 2.0 - 7.8 Laboratory test finding 01/26/2020 [place] Screen Tender Helper islinda, pc Assistant To The Ceo: Dr Lanre Gurrola [place], [place] [address] [phone] Thyroid Stimulating Hormone 7.15 uIU/mL High 0.3 6 - 3.74 Ua Dipstick Only 01/26/2020 [place] gary Partida Assistant To The Ceo: [place] [address] [phone] Urine Color DARK YELLOW Abnormal Yellow Urine Appearance TURBID Abnormal Clear Urine PH 6.5 units 5.0 - 9.0 Urine Specific [place] 1.020 1.005 - 1.030 Urine Leukocytes LARGE Abnormal Negative Urine Blood LARGE Abnormal Negative Urine Protein 2+ Abnormal Negative -Trace Urine Glucose NEGATIVE mg/dL Negative Urine Nitrite POSITIVE Abnormal Negative Urine Ketone NEGATIVE mg/dL Negative Urine Bilirubin NEGATIVE Negative Urine Urobilinogen 2.0 mg/dl mg/dL Abnormal 0.2 - 1.0 Procedures Date Code Description Status 01/26/2020 20208 EKG/Interpretation & Report Comp leted Medical Devices Description No Information Available Encounters Type Date Location Provider Dx Diagnosis Office Visit 01/26/2020 11:[facility] [facility] I48.91 Unspecified atrial fibrillat ion G47.00 Insomnia, unspecified E02 Subclinical iodine-deficienc y hypothyroidism R31.0 Gross hematuria N39.0 Urinary tract infection, sit e not specified Office Visit 10/20/2019 2:00p [place] [facility]Marjorie Mancilla FNP G47.00 Insomnia, unspecified F34.1 Dysthymic disorder F41.9 Anxiety disorder, unspecifie d Z55.0 Illiteracy and low-level lit eracy Assessments Date Code Description Provider 02/27/2020 Z55.0 Illiteracy and low-level literac y GHANSHYAM William JR 02/27/2020 F41.9 Anxiety disorder, unspecified Ro GHANSHYAM Jimenez JR 02/27/2020 I48.91 Unspecified atrial fibrillation GHANSHYAM William JR 02/27/2020 G47.00 Insomnia, unspecified GHANSHYAM Giles JR 01/26/2020 I48.91 Unspecified atrial fibrillation GHANSHYAM [...] 10/20/2019 F41.9 Anxiety disorder, unspecified Ko Tiffany caban FNP 10/20/2019 Z55.0 Illiteracy and low-level literac y Tiffany Ag FNP Plan of Treatment Future Appointment(s):* 05/01/2020 2:40 pm - MEREDITH Lew at [facility] 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 CARDIOLOGY CONSULT FOR NEW ONS ET ATRIAL FIB Patient Notified 02/15/202091840 Michael Carlton [address] [place] [address] [phone] [facility] CARDIAC ECHO WITH DOPPL ER DX: NEW ONSET ATRIAL FIB AUTH: [id number] EXP 03/12/20 Closed 02/13/[address] Carlton [address] [place] [address] [phone] [facility] EXERCISE STRESS TEST DX : NEW ONSET ATRIAL FIB NO PRIOR AUTH REQ Closed 02/13/[address] Carlton [address] [place] [address] [phone]
--- OUTSIDE RECORDS SUMMARY | 2020-05-23 23:39 | CCD | Continuity of Care Document ---
Author Author Ta STACY PA Organization Unknown Address [address] [address] Phone [phone] Care Team Providers Care Ophthalmic Medical Technologist Name Role Phone Jeannette Gutiérrez CONTRACT SERVICEMAN AUTM [phone] [facility] [phone] Problems Active Problems Provider Date Morbid obesity [...] SIG Qnty Indications Ordering Provide r Date Sertraline HCL 100mg Tablets 1 by mouth every day 90tabs Steve Stacy JR GHANSHYAM 020 Toprol XL 50mg Tablets ER 24HR Take one by mouth once daily GHANSHYAM William JR 2019 Nystop 924789Owqd/GM Powder Apply To Affected Areas 2-3X/Day prn 30gm Nataliia Levin 01/31/2019 Zolpidem Tartrate 5mg Tablets take one tablet by mouth every night at bedtime as needed for insomnia 30tabs GHANSHYAM William JR 11/10/2018 Furosemide 40mg Tablets Take One Tablet By Mouth Every Morning Gia Segura M.D. 06/11 Xarelto 20mg Tablets take one tablet by mouth every day with food Unknown History Medications Nitrofurantoin Macrocrystal 100mg Capsules 1 by mouth twice a day 14caps GHANSHYAM William JR 01/26/2020 - 02/27/2020 Immunizations Description No Information Available Vital Signs Date Vital Result Comment 02/27/2020 2:09pm Height 65.25 inches 5'5.25" Weight 376.00 lb BMI (Body Mass Index) 62.1 kg/m2 01/26/2020 11:21am BP Systolic 110 mmHg BP Diastolic 70 mmHg Heart Rate 87 /min Height 65.25 inches 5'5.25" Weight 401.00 lb O2 % BldC Oximetry 99 % RM Air BMI (Body Mass Index) 66.2 kg/m2 Results Test Acquired Date Facility Test Result H/L Range Note Complete Blood Count 01/26/2020 [facility] Port[facility] Bb Shot Packer: Dr Lanre Gurrola [place] [id number] [phone] WBC 7.5 x10*3/UL 4.1 - 10.9 RBC [...] 2.0 - 7.8 Laboratory test finding 01/26/2020 [facility] Director Paid Media ists, Bb Shot Packer: [place] [address] [phone] Thyroid Stimulating Hormone 7.15 uIU/mL High 0.3 6 - 3.74 Ua Dipstick Only 01/26/2020 [facility] Helga Bb Shot Packer: [place] [address] [phone] Urine Color DARK YELLOW Abnormal Yellow Urine Appearance TURBID Abnormal Clear Urine PH 6.5 units 5.0 - 9.0 Urine Specific [place] 1.020 1.005 - 1.030 Urine Leukocytes LARGE Abnormal Negative Urine Blood LARGE Abnormal Negative Urine Protein 2+ Abnormal Negative -Trace Urine Glucose NEGATIVE mg/dL Negative Urine Nitrite POSITIVE Abnormal Negative Urine Ketone NEGATIVE mg/dL Negative Urine Bilirubin NEGATIVE Negative Urine Urobilinogen 2.0 mg/dl mg/dL Abnormal 0.2 - 1.0 Procedures Date Code Description Status 01/26/2020 87580 EKG/Interpretation & Report Comp leted Medical Devices Description No Information Available Encounters Type Date Location Provider Dx Diagnosis Office Visit 01/26/2020 11:20a [facility] Lea Partida JR, PA I48.91 Unspecified atrial fibrillat ion G47.00 Insomnia, unspecified E02 Subclinical iodine-deficienc y hypothyroidism R31.0 Gross hematuria N39.0 Urinary tract infection, sit e not specified Office Visit 10/20/2019 2:00p [facility] Faust K athryn, FNP G47.00 Insomnia, unspecified F34.1 Dysthymic disorder F41.9 Anxiety disorder, unspecifie d Z55.0 Illiteracy and low-level lit eracy Assessments Date Code Description Provider 01/26/2020 I48.91 Unspecified atrial fibrillation GHANSHYAM William JR 01/26/2020 G47.00 Insomnia, unspecified GHANSHYAM Giles JR 01/26/2020 E02 Subclinical iodine-deficiency hy pothyroidism GHANSHYAM William JR 01/26/2020 R31.0 Gross hematuria GHANSHYAM Salter JR 01/26/2020 N39.0 Urinary tract infection, site no t specified GHANSHYAM William JR 10/20/2019 G47.00 Insomnia, unspecified Avel Ag,[facility] 10/20/2019 F34.1 Dysthymic disorder Collette Ag,[facility] 10/20/2019 F41.9 Anxiety disorder, unspecified Ko Tiffany caban,[facility] 10/20/2019 Z55.0 Illiteracy and low-level literac y Tiffany Ag,[facility] Plan of Treatment 02/27/2020 - GHANSHYAM William JR* All * New Medication:* Sertraline HCL 100 mg - 1 by mouth every day * Toprol XL 50 mg - Take one by mouth once daily Functional Status Description No Information Available Mental Status Description No Information Available Referrals Refer to Reason for Referral Status Appt Date [facility] [place] SOCIOLOGY ADJUNCT INSTRUCTOR CONSULT FOR GROSS HEMATURIA Patient Notified 02/06/2020 [place] [address] [phone] [facility] NEW ONS ET ATRIAL FIB Patient Notified 02/15/[address] Carlton [address] [place] [address] [phone] [facility] DOPPL ER DX: NEW ONSET ATRIAL FIB AUTH: [id number] EXP 03/12/20 Closed 02/13/[address] Carlton [address] [place] [address] [phone] [facility]ESS [facility] DX : NEW ONSET ATRIAL FIB NO PRIOR AUTH REQ Closed 02/13/[address] Carlton [address] [place] [address] [phone]
--- OUTSIDE RECORDS SUMMARY | 2020-05-23 23:40 | CCD ---
Author Author [facility] Organization [facility] Address Unknown Phone Unavailable Care Team Providers Care Usability Strategist Name Role Phone Harley Gurrola MD Unavailable Unavailable Harley Gurrola MD Unavailable Unavailable Harley Gurrola MD Unavailable Unavailable Harlye Gurrola MD Unavailable Unavailable Harley Gurrola MD Unavailable Unavailable Harley Gurrola MD Unavailable Unavailable Harley Gurrola MD Unavailable Unavailable Harley Gurrola MD Unavailable Unavailable LivoniaHarley MD Unavailable Unavailable IzabelaHarley MD Unavailable Unavailable IzabelaHarley MD Unavailable Unavailable LivoniaHarley MD Unavailable Unavailable LivoniaHarley MD Unavailable Unavailable LivoniaHarley MD Unavailable Unavailable IzabelaHarley MD Unavailable Unavailable IzabelaHarley MD Unavailable Unavailable IzabelaHarley MD Unavailable Unavailable LivoniaHarley MD Unavailable Unavailable LivoniaHarley MD Unavailable Unavailable IzabelaHarley MD Unavailable Unavailable IzabelaHarley MD Unavailable Unavailable IzabelaHarley MD Unavailable Unavailable LivoniaHarley MD Unavailable Unavailable LivoniaHarley MD Unavailable Unavailable IzabelaHarley MD Unavailable Unavailable LivoniaHarley MD Unavailable Unavailable LivoniaHarley MD Unavailable Unavailable LivoniaHarley MD Unavailable Unavailable LivoniaHarley MD Unavailable Unavailable LivoniaHarley MD Unavailable Unavailable LivoniaHarley MD Unavailable Unavailable LivoniaHarley MD Unavailable Unavailable LivoniaHarley MD Unavailable Unavailable LivoniaHarley MD Unavailable Unavailable LivoniaHarley MD Unavailable Unavailable IzabelaHarley MD Unavailable Unavailable LivoniaHarley MD Unavailable Unavailable LivoniaHarley MD Unavailable Unavailable IzabelaHarley MD Unavailable Unavailable IzabelaHarley MD Unavailable Unavailable LivoniaHarley MD Unavailable Unavailable LivoniaHarley MD Unavailable Unavailable IzabelaHarley MD Unavailable Unavailable LivoniaHarley MD Unavailable Unavailable LivoniaHarley MD Unavailable Unavailable IzabelaHarley MD Unavailable Unavailable IzabelaHarley MD Unavailable Unavailable IzabelaHarley MD Unavailable Unavailable IzabelaHarley MD Unavailable Unavailable IzabelaHarley MD Unavailable Unavailable LivoniaHarley MD Unavailable Unavailable IzabelaHarley MD Unavailable Unavailable LivoniaHarley MD Unavailable Unavailable IzabelaHarley MD Unavailable Unavailable IzabelaHarley MD Unavailable Unavailable IzabelaHarley MD Unavailable Unavailable LivoniaHarley MD Unavailable Unavailable IzabelaHarley MD Unavailable Unavailable IzabelaHarley MD Unavailable Unavailable IzabelaHarley MD Unavailable Unavailable LivoniaHarley MD Unavailable Unavailable IzabelaHarley MD Unavailable Unavailable LivoniaHarley MD Unavailable Unavailable IzabelaHarley MD Unavailable Unavailable Izabela, F De Dios MD Unavailable Unavailable IzabelaHarley MD Unavailable Unavailable IzabelaHarley MD Unavailable Unavailable LivoniaHarley MD Unavailable Unavailable Izabela, F Lanre FIERRO Unavailable Unavailable IzabelaHarley MD Unavailable Unavailable IzabelaHarley MD Unavailable Unavailable LivoniaHarley MD Unavailable Unavailable LivoniaHarley MD Unavailable Unavailable LivoniaHarley MD Unavailable Unavailable IzabelaHarley MD Unavailable Unavailable LivoniaHarley MD Unavailable Unavailable LivoniaHarley MD Unavailable Unavailable IzabelaHarley MD Unavailable Unavailable LivoniaHarley MD Unavailable Unavailable IzabelaHarley MD Unavailable Unavailable Izabela F Lanre FIERRO Unavailable Unavailable IzabelaHarley MD Unavailable Unavailable Livonia F Lanre FIERRO Unavailable Unavailable IzabelaHarley MD Unavailable Unavailable LivoniaHarley MD Unavailable Unavailable IzabelaHarley MD Unavailable Unavailable Aman Gold MD Unavailable [phone] Aman Gold MD Unavailable [phone] Aman Gold MD Unavailable [phone] Aman Gold MD Unavailable [phone] Aman Gold MD Unavailable [phone] Aman Gold MD Unavailable [phone] Aman Gold MD Unavailable [phone] Aman Gold MD Unavailable [phone] Aman Gold MD Unavailable [phone] Lucila Leach MD Unavailable Unavailable Lucila Leach MD Unavailable Unavailable Lucila Leach MD Unavailable Unavailable Lucila Leach MD Unavailable Unavailable Lucila Leach MD Unavailable Unavailable Lucila Leach MD Unavailable Unavailable Lucila Leach MD Unavailable Unavailable Lucila Leach MD Unavailable Unavailable Lucila Leach MD Unavailable Unavailable Lucila Leach MD Unavailable Unavailable Lucial Leach MD Unavailable Unavailable Lucila Leach MD Unavailable Unavailable Lucila Leach MD Unavailable Unavailable Lucila Leach MD Unavailable Unavailable Lucila Leach MD Unavailable Unavailable Lucila Leach MD Unavailable Unavailable Leni Leachtech Unavailable Unavailable Lucila Leach MD Unavailable Unavailable Lucila Leahc MD Unavailable Unavailable Lucila Leach MD Unavailable Unavailable Lucila Leach MD Unavailable Unavailable Lucila Leach MD Unavailable Unavailable Lucila Leach MD Unavailable Unavailable Lucila Leach MD Unavailable Unavailable Lucila Leach MD Unavailable Unavailable Lucila Leach MD Unavailable Unavailable Leni Leachtech Unavailable Unavailable Lucila Leach MD Unavailable Unavailable Lucila Leach MD Unavailable Unavailable Lucila Leach MD Unavailable Unavailable Lucila Leach MD Unavailable Unavailable Lucila Leach MD Unavailable Unavailable Lucila Leach MD Unavailable Unavailable Lucila Leach MD Unavailable Unavailable Lucila Leach MD Unavailable Unavailable Lucila Leach MD Unavailable Unavailable Lucila Leach MD Unavailable Unavailable Lucila Leach MD Unavailable Unavailable Lucila Leach MD Unavailable Unavailable Lucila Leach MD Unavailable Unavailable Lucila Leach MD Unavailable Unavailable Lucila Leach MD Unavailable Unavailable Lucila Leach MD Unavailable Unavailable Lucila Leach MD Unavailable Unavailable Lucila Leach MD Unavailable Unavailable Lucila Leach MD Unavailable Unavailable Lucila Leach MD Unavailable Unavailable Lucila Leach MD Unavailable Unavailable Lucila Leach MD Unavailable Unavailable Lucila Leach MD Unavailable Unavailable Lucila Leach MD Unavailable Unavailable Lucila Leach MD Unavailable Unavailable Lucila Leach MD Unavailable Unavailable Lucila Leach MD Unavailable Unavailable Lucila Leach MD Unavailable Unavailable Lucila Leach MD Unavailable Unavailable Lucila Leach MD Unavailable Unavailable Nataliia Segura MD Unavailable Unavailable Nataliia Segura MD Unavailable Unavailable Nataliia Segura MD Unavailable Unavailable Nataliia Segura MD Unavailable Unavailable Nataliia Segura MD Unavailable Unavailable MieldaNataliia MD Unavailable Unavailable ImeldaNataliia MD Unavailable Unavailable ImeldaNataliia MD Unavailable Unavailable ImeldaNataliia MD Unavailable Unavailable ImeldaNataliia MD Unavailable Unavailable ImeldaNataliia MD Unavailable Unavailable ImledaNataliia MD Unavailable Unavailable ImeldaNataliia harris MD Unavailable Unavailable ImeldaNataliia MD Unavailable Unavailable Nataliia Segura MD Unavailable Unavailable ImeldaNataliia MD Unavailable Unavailable ImeldaNataliia MD Unavailable Unavailable MieldaNataliia MD Unavailable Unavailable ImeldaNataliia MD Unavailable Unavailable ImeldaNataliia MD Unavailable Unavailable ImeldaNataliia MD Unavailable Unavailable ImeldaNataliia MD Unavailable Unavailable ImeldaNataliia avalos MD Unavailable Unavailable ImeldaNataliia MD Unavailable Unavailable ImeldaNataliia MD Unavailable Unavailable Nataliia Segura MD Unavailable Unavailable Nataliia Segura MD Unavailable Unavailable Nataliia Segura MD Unavailable Unavailable Nataliia Segura MD Unavailable Unavailable Nataliia Segura MD Unavailable Unavailable Nataliia Segura MD Unavailable Unavailable Nataliia Segura MD Unavailable Unavailable Nataliia Segura MD Unavailable Unavailable Nataliia Segura MD Unavailable Unavailable Nataliia Segura MD Unavailable Unavailable Nataliia Segura MD Unavailable Unavailable Nataliia Segura MD Unavailable Unavailable Nataliia Segura MD Unavailable Unavailable Nataliia Segura MD Unavailable Unavailable Nataliia Segura MD Unavailable Unavailable Nataliia Segura MD Unavailable Unavailable Nataliia Segura MD Unavailable Unavailable Nataliia Segura MD Unavailable Unavailable Nataliia Segura MD Unavailable Unavailable Nataliia Segura MD Unavailable Unavailable Nataliia Segura MD Unavailable Unavailable Nataliia Segura MD Unavailable Unavailable Nataliia Segura MD Unavailable Unavailable Nataliia Segura MD Unavailable Unavailable Nataliia Segura MD Unavailable Unavailable Nataliia Segura MD Unavailable Unavailable Nataliia Segura MD Unavailable Unavailable Nataliia Segura MD Unavailable Unavailable Nataliia Segura MD Unavailable Unavailable ImeldaNataliia avalos MD Unavailable Unavailable ImeldaNataliiaie MD Unavailable Unavailable Nataliia Segura MD Unavailable Unavailable Nataliia Segura MD Unavailable Unavailable Nataliia Segura MD Unavailable Unavailable Nataliia Segura MD Unavailable Unavailable Nataliia Segura MD Unavailable Unavailable Nataliia Segura MD Unavailable Unavailable Nataliia Segura MD Unavailable Unavailable Nataliia Segura MD Unavailable Unavailable Nataliia Segura MD Unavailable Unavailable Nataliia Segura MD Unavailable Unavailable Nataliia Segura MD Unavailable Unavailable Nataliia Segrua MD Unavailable Unavailable Nataliia Segura MD Unavailable Unavailable Nataliia Segura MD Unavailable Unavailable Nataliia Segura MD Unavailable Unavailable Nataliia Segura MD Unavailable Unavailable Nataliia Segura MD Unavailable Unavailable Nataliia Segura MD Unavailable Unavailable Nataliia Segura MD Unavailable Unavailable Nataliia Segura MD Unavailable Unavailable Nataliia Segura MD Unavailable Unavailable Nataliia Segura MD Unavailable Unavailable Brock, Jeannette PHARMACY BENEFIT MANAGER Unavailable Unavailable Brock, Jeannette PHARMACY BENEFIT MANAGER Unavailable Unavailable Brock, Jeannette PHARMACY BENEFIT MANAGER Unavailable Unavailable Brock, Jeannette PHARMACY BENEFIT MANAGER Unavailable Unavailable Brock, Jeannette PHARMACY BENEFIT MANAGER Unavailable Unavailable Brock, Jeannette PHARMACY BENEFIT MANAGER Unavailable Unavailable Brock, Jeannette PHARMACY BENEFIT MANAGER Unavailable Unavailable Brock, Jeannette PHARMACY BENEFIT MANAGER Unavailable Unavailable Brock, Jeannette PHARMACY BENEFIT MANAGER Unavailable Unavailable Brock, Jeannette PHARMACY BENEFIT MANAGER Unavailable Unavailable Brock, Jeannette PHARMACY BENEFIT MANAGER Unavailable Unavailable Brock, Jeannette PHARMACY BENEFIT MANAGER Unavailable Unavailable Brock, Jeannette PHARMACY BENEFIT MANAGER Unavailable Unavailable Brock, Jeannette PHARMACY BENEFIT MANAGER Unavailable Unavailable Brock, Jeannette PHARMACY BENEFIT MANAGER Unavailable Unavailable Brock, Jeannette PHARMACY BENEFIT MANAGER Unavailable Unavailable Brock, Jeannette PHARMACY BENEFIT MANAGER Unavailable Unavailable Brock, Jeannette PHARMACY BENEFIT MANAGER Unavailable Unavailable Brock, Jeannette PHARMACY BENEFIT MANAGER Unavailable Unavailable Brock, Jeannette PHARMACY BENEFIT MANAGER Unavailable Unavailable Brock, Jeannette PHARMACY BENEFIT MANAGER Unavailable Unavailable Brock, Jeannette PHARMACY BENEFIT MANAGER Unavailable Unavailable Brock, Jeannette PHARMACY BENEFIT MANAGER Unavailable Unavailable Brock, Jeannette PHARMACY BENEFIT MANAGER Unavailable Unavailable Brock, Jeannette PHARMACY BENEFIT MANAGER Unavailable Unavailable Brock, Jeannette PHARMACY BENEFIT MANAGER Unavailable Unavailable PICKERAL JR, J MARIAH PA-C Unavailable Unavailable PICKERAL JR, J MARIAH PA-C Unavailable Unavailable PICKERAL JR, J MARIAH PA-C Unavailable Unavailable PICKERAL JR, J MARIAH PA-C Unavailable Unavailable PICKERAL JR, J MARIAH PA-C Unavailable Unavailable PICKERAL JR, J MARIAH PA-C Unavailable Unavailable PICKERAL JR, J MARIAH PA-C Unavailable Unavailable PICKERAL JR, J MARIAH PA-C Unavailable Unavailable PICKERAL JR, J MARIAH PA-C Unavailable Unavailable PICKERAL JR, J MARIAH PA-C Unavailable Unavailable PICKERAL JR, J MARIAH PA-C Unavailable Unavailable PICKERAL JR, J MARIAH PA-C Unavailable Unavailable PICKERAL JR, J MARIAH PA-C Unavailable Unavailable PICKERAL JR, J MARIAH PA-C Unavailable Unavailable PICKERAL JR, J MARIAH PA-C Unavailable Unavailable PICKERAL JR, J MARIAH PA-C Unavailable Unavailable PICKERAL JR, J MARIAH PA-C Unavailable Unavailable PICKERAL JR, J MARIAH PA-C Unavailable Unavailable Ancelmo, Tiffany PHARMACY BENEFIT MANAGER Unavailable Unavailable Ancelmo, Tiffany PHARMACY BENEFIT MANAGER Unavailable Unavailable Ancelmo, Tiffany PHARMACY BENEFIT MANAGER Unavailable Unavailable Ancelmo, Tiffany PHARMACY BENEFIT MANAGER Unavailable Unavailable Ancelmo, Tiffany PHARMACY BENEFIT MANAGER Unavailable Unavailable Ancelmo, Tiffany PHARMACY BENEFIT MANAGER Unavailable Unavailable Ancelmo, Tiffany PHARMACY BENEFIT MANAGER Unavailable Unavailable Ancelmo, Tiffany PHARMACY BENEFIT MANAGER Unavailable Unavailable Ancelmo, Tiffany PHARMACY BENEFIT MANAGER Unavailable Unavailable Ancelmo, Tiffany PHARMACY BENEFIT MANAGER Unavailable Unavailable Ancelmo, Tiffany PHARMACY BENEFIT MANAGER Unavailable Unavailable Ancelmo, Tiffany PHARMACY BENEFIT MANAGER Unavailable Unavailable Ancelmo, Tiffany PHARMACY BENEFIT MANAGER Unavailable Unavailable Ancelmo, Tiffany PHARMACY BENEFIT MANAGER Unavailable Unavailable Ancelmo, Tiffany PHARMACY BENEFIT MANAGER Unavailable Unavailable Ancelmo, Tiffany PHARMACY BENEFIT MANAGER Unavailable Unavailable Ancelmo, Tiffany PHARMACY BENEFIT MANAGER Unavailable Unavailable Ancelmo, Tiffany PHARMACY BENEFIT MANAGER Unavailable Unavailable Ancelmo, Tiffany PHARMACY BENEFIT MANAGER Unavailable Unavailable Ancelmo, Tiffany PHARMACY BENEFIT MANAGER Unavailable Unavailable Ancelmo, Tiffany PHARMACY BENEFIT MANAGER Unavailable Unavailable Ancelmo, Tiffany PHARMACY BENEFIT MANAGER Unavailable Unavailable Ancelmo, Tiffany PHARMACY BENEFIT MANAGER Unavailable Unavailable Ancelmo, Tiffany PHARMACY BENEFIT MANAGER Unavailable Unavailable Ancelmo, Tiffany PHARMACY BENEFIT MANAGER Unavailable Unavailable Ancelmo, Tiffany PHARMACY BENEFIT MANAGER Unavailable Unavailable Ancelmo, Tiffany PHARMACY BENEFIT MANAGER Unavailable Unavailable Ancelmo, Tiffany PHARMACY BENEFIT MANAGER Unavailable Unavailable Ancelmo, Tiffany PHARMACY BENEFIT MANAGER Unavailable Unavailable Ancelmo, Tiffany PHARMACY BENEFIT MANAGER Unavailable Unavailable Ancelmo, Tiffany PHARMACY BENEFIT MANAGER Unavailable Unavailable Ancelmo, Tiffany PHARMACY BENEFIT MANAGER Unavailable Unavailable Ancelmo, Tiffany PHARMACY BENEFIT MANAGER Unavailable Unavailable Ancelmo, Tiffany PHARMACY BENEFIT MANAGER Unavailable Unavailable Ancelmo, Tiffany PHARMACY BENEFIT MANAGER Unavailable Unavailable Ancelmo, Tiffany PHARMACY BENEFIT MANAGER Unavailable Unavailable Ancelmo, Tiffany PHARMACY BENEFIT MANAGER Unavailable Unavailable Ancelmo, Tiffany PHARMACY BENEFIT MANAGER Unavailable Unavailable Ancelmo, Tiffany PHARMACY BENEFIT MANAGER Unavailable Unavailable Ancelmo, Tiffany PHARMACY BENEFIT MANAGER Unavailable Unavailable Ancelmo, Tiffany PHARMACY BENEFIT MANAGER Unavailable Unavailable Ancelmo, Tiffany PHARMACY BENEFIT MANAGER Unavailable Unavailable Ancelmo, Tiffany PHARMACY BENEFIT MANAGER Unavailable Unavailable Ancelmo, Tiffany PHARMACY BENEFIT MANAGER Unavailable Unavailable Ancelmo, Tiffany PHARMACY BENEFIT MANAGER Unavailable Unavailable Ancelmo, Tiffany PHARMACY BENEFIT MANAGER Unavailable Unavailable Ancelmo, Tiffany PHARMACY BENEFIT MANAGER Unavailable Unavailable Ancelmo, Tiffany PHARMACY BENEFIT MANAGER Unavailable Unavailable Ancelmo, Tiffany PHARMACY BENEFIT MANAGER Unavailable Unavailable Ancelmo, Tiffany PHARMACY BENEFIT MANAGER Unavailable Unavailable Ancelmo, Tiffany PHARMACY BENEFIT MANAGER Unavailable Unavailable Ancelmo, Tiffany PHARMACY BENEFIT MANAGER Unavailable Unavailable Ancelmo, Tiffany PHARMACY BENEFIT MANAGER Unavailable Unavailable Leroy, V EAGLE PA-C Unavailable Unavailable Leroy, V EAGLE PA-C Unavailable Unavailable Leroy, V EAGLE PA-C Unavailable Unavailable Leroy, V EAGLE PA-C Unavailable Unavailable Martin, V EAGLE PA-C Unavailable Unavailable Martin, V EAGLE PA-C Unavailable Unavailable Re-disclosure Warning The records that you are about to access may contain information from federally-assisted alcohol or drug abuse programs. If such information is present, then the following federally mandated warning applies: This information has been disclosed to you from records protected by federal confidentiality rules (42 CFR part 2). The federal rules prohibit you from making any further disclosure of this information unless further disclosure is expressly permitted by the written consent of the person to whom it pertains or as otherwise permitted by 42 CFR part 2. A general authorization for the release of medical or other information is NOT sufficient for this purpose. The Federal rules restrict any use of the information to criminally investigate or prosecute any alcohol or drug abuse patient.The records that you are about to access may contain highly sensitive health information, the redisclosure of which is protected by Article 27-F of the [facility] Public Health law. If you continue you may have access to information: Regarding HIV / AIDS; Provided by facilities licensed or operated by the [facility] Office of Mental Health; or Provided by the [facility] Office for People With Developmental Disabilities. If such information is present, then the following [facility] mandated warning applies: This information has been disclosed to you from confidential records which are protected by state law. State law prohibits you from making any further disclosure of this information without the specific written consent of the person to whom it pertains, or as otherwise permitted by law. Any unauthorized further disclosure in violation of state law may result in a fine or senior living sentence or both. A general authorization for the release of medical or other information is NOT sufficient authorization for further disc losure. Family History Family Member Name Family Member Gender Family Member Status Date o f Status Description Data Source(s) Unknown Male Problem [facility] ([facility], ) Encounters Encounter Providers Location Date Indications Data Source(s ) Outpatient Attender: EAGLE TURNERCReferrer: Arturo CARROLL.[email or web address].VIC 05/23/2020 12:00:00 AM EST [facility] Outpatient Attender: Jeannette Stein 01:40:00 PM EST [facility] ([facility] ) Unknown [address] [id number] 04/24/2020 12:00:00 AM EST eCW1 ([facility]) Outpatient Attender: MARIAH Stein 1 05/30/2019 01:00:00 PM EST [facility] ([facility] ) Unknown [address] [facility] [id number] 03/28/2020 12:00:00 AM EST eCW1 ([facility]) Unknown [address] [id number] 03/23/2020 12:00:00 AM EST eCW1 ([facility]) Unknown [address] [id number] 03/23/2020 12:00:00 AM EST eCW1 ([facility]) Outpatient [address] [id number] 03/21/2020 12:00:00 AM EST eCW1 ([facility]) Outpatient Attender: MARIAH Stein 1 02:00:00 PM EDT [facility] ([facility] ) Outpatient Attender: Lucila Leach MD SJCassandra.VIC-[email or web address].VIC 11/2019 12:00:00 AM EDT - 02/15/2020 01:50:37 PM EDT [facility] Outpatient Attender: MARIAH Stein 0 01/26/2020 11:20:00 AM EDT [facility] ([facility] ) Outpatient Attender: Tiffany Stein 0 10/20/2019 02:00:00 PM EDT [facility] ([facility] ) Outpatient 07/12/2019 03:15:00 PM EST [facility] Outpatient Attender: Gia Stein 10:00:00 AM EST [facility] ([facility] ) Outpatient Attender: Luis Gold MD CPSCAORT-CPSCAORT 11:20:00 AM EST - 06/10/2019 11:21:00 AM EST [facility] Patient discharged. Immunizations Vaccine Date Status Description Data Source(s) Influenza, injectable, MDCK, preservative free, mariposa valent 03/30/2020 01:20:00 PM EST completed [facility] ([facility]) Medications Medication Brand Name Start Date Product Form Dose Route Admi nistrative Instructions Pharmacy Instructions Status Indications Reaction Description Data Source(s) Administration Of Flu Vaccine 03/30/2020 12:00:00 AM EST completed [facility] ([facility]) Medication administered onsite Cephalexin 500 MG Oral Capsule Cephalexin 03/30/2020 12:00:00 AM EST ORAL completed [facility] ([facility]) Zolpidem tartrate 10 MG Oral Tablet Zolpidem Tartrate 03/11 12:00:00 AM EST ORAL active [facility] ([facility]) 24 HR metoprolol succinate 50 MG Extended Release Oral Tablet [Toprol] Toprol XL 02/27/2020 12:00:00 AM EDT ORAL active [facility] ([facility]) Sertraline 100 MG Oral Tablet Sertraline HCL 02/27/2020 12:00:00 AM E DT ORAL active [facility] ([facility]) NITROFURANTOIN, MACROCRYSTALS 100 MG Oral Capsule Nitrofuran toin Macrocrystal 01/26/2020 12:00:00 AM EDT ORAL completed [facility] ([facility]) 50 mg 06/17/2019 12:00:00 AM EST tablet 30 TAKE 1/2 TABLET BY MOUTH EVERY MORNING FOR 4 DAYS THEN TAKE ONE TABLET BY MOUTH EVERY DAY TAKE 1/2 TABLET BY MOUTH EVERY MORNING FOR 4 DAYS THEN TAKE ONE TABLET BY MOUTH EVERY DAY SOLD: 06/19/2019 [facility] Sertraline 50 MG Oral Tablet Sertraline HCL 06/16/2019 12:00:00 AM EST ORAL active [facility] ([facility]) 5 mg 06/08/2019 12:00:00 AM EST tablet 30 TAKE ONE TABLET BY MOUTH AT BEDTIME NEEDED FOR INSOMNIA MAXIMUM DAILY DOSE = 1 TABLET TAKE ONE TABLET BY MOUTH AT BEDTIME NEEDED FOR INSOMNIA MAXIMUM DAILY DOSE = 1 TABLET SOLD: 2019 [facility] 5 mg 05/11/2019 12:00:00 AM EST tablet 30 TAKE ONE TABLET BY MOUTH EVERY DAY AT BEDTIME NEEDED FOR INSOMNIA MAXIMUM DAILY DOSE = ONE TABLET TAKE ONE TABLET BY MOUTH EVERY DAY AT BEDTIME NEEDED FOR INSOMNIA MAXIMUM DAILY DOSE = ONE TABLET SOLD: 05/11/2019 [facility] 5 mg 04/12/2019 12:00:00 AM EST tablet 30 TAKE 1 TABLET BY MOUTH EVERY NIGHT AT BEDTIME NEEDED FOR INSOMINIA MAXIMUM DAILY DOSE = ONE TABLET TAKE 1 TABLET BY MOUTH EVERY NIGHT AT BEDTIME NEEDED FOR INSOMINIA MAXIMUM DAILY DOSE = ONE TABLET SOLD: 04/12/2019 [facility] Insurance Providers Payer name Policy type / Coverage type Policy ID Covered democrat ID Covered democrat's relationship to mitchell Policy Mitchell Plan Information MEDICARE [id number] SP [id number] [facility] MEDICARE [id number] Cara 18 [id number] [facility] [id number] SP [id number] MEDICARE [id number] SP [id number] A MEDICARE [id number] SP [id number] MEDICARE [id number] SP [id number] A WELLCARE O [id number] S [id number] WELLCARE [id number] SP [id number] WELLCARE [id number] Other [id number] [employer] Commercial [id number] Self [id number] Wellcare/Tod[employer] Commercial [id number] Self [id number] [employer] Commercial [id number] Self [id number] MEDICARE A [id number] Self [id number] A WELLCARE [id number] SP [id number] Wellcare/[employer] Commercial [id number] Self [id number] Wellcare Today's Options Commercial [id number] Self [id number] TODAYS OPTIONS [id number] SP [id number] [place] Commercial [id number] Self [id number] [place] [id number] Self [id number] [place] Commercial [id number] Self [id number] TODAYS OPTIONS [id number] SP [id number] [place] [employer] [id number] Self [id number] Todays Option Commercial [id number] Self [id number] Medicare Part A [place] [id number] Self [id number] MEDICARE PART A-O/P [id number] 18 [id number] [place] [id number] 18 [id number] MEDICARE PART A [facility] [place] [id number] 18 [id number] TODAYS OPTION -RECURRING [id number] [employer] HE[employer]CARE -RECURRING [id number] 18 [id number] [employer] -RECURRING [id number] 18 [id number] TODAYS OPTION -RECURRING [id number] 18 [id number] MEDICARE -O/P [id number] MEDICARE [id number] SP [id number] A MEDICARE C [id number] S [id number] A MEDICARE PART A-CLINIC [id number] 18 [id number] MEDICARE OUTPATIENT M [id number] S [id number] [employer] PLANS O [id number] S [id number] UNAVAILABLE UNAVAILA BLE Problems, Conditions, and Diagnoses Code Display Name Description Problem Type Effective Dates Data Source(s) 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 Problem 03/21/2020 12:00:00 AM EST eCW1 ([facility]) I48.19 Other persistent atrial fibrillation Oth er persistent atrial fibrillation Diagnosis 02/15/2020 01:01:44 PM EDT [facility] E66.01 Morbid (severe) obesity due to excess ca lories MORBID (SEVERE) OBESITY DUE TO EXCESS CALORIES Diagnosis 06/10/2019 11:20:00 AM [facility] Z96.642 Presence of left artificial hip joint AK ESENCE OF LEFT ARTIFICIAL HIP JOINT Diagnosis 06/10/2019 11:20:00 AM [facility] M16.11 Unilateral primary osteoarthritis, right hip UNILATERAL PRIMARY OSTEOARTHRITIS, RIGHT HIP Diagnosis 06/10/2019 11:20:00 AM [facility] M25.551 Pain in right hip PAIN IN RIGHT HIP Diagnosis 06/10 11:20:00 AM [facility] Surgeries/Procedures Procedure Description Date Indications Data Source(s) ECG ROUTINE ECG W/LEAST 12 LDS W/I&R 01/26/2020 12:00: 00 AM EDT [facility] ([facility]) [facility] outpatient clinic visit for assessment and ma nagement of a patient Hospital Outpatient Clinic Visit 06/10/2019 12:00:00 AM [facility] [id number] X-RAY EXAM HIP UNI 2-3 VIEWS 06/10/2019 12:00:00 AM [facility] Results ID Date Data Source [id number] 04/06/2020 02:21:00 PM [facility] ([facility]) Name Value Range Interpretation Code Description Data Marisela rce(s) Supporting Document(s) Laboratory test finding (navigational concept) Laboratory test result [facility] ([facility]) A false negative result may occur if a s pecimen is improperly collected, transported or handled. False [...] pathogens. DISCLAIMER: Testing was performed using the [employer] SARS-CoV-2 test. This test was developed and its performance characteristics determined by [employer]. This test has not been FDA cleared [...] the authorization is terminated or revoked sooner. ID Date Data Source [id number] 04/06/2020 12:25:00 PM EST [facility] Name Value Range Interpretation Code Description Data Marisela rce(s) Supporting Document(s) Appearance, Urine RFX Laboratory test result [facility] PH,Urine RFX 6.0 units 5.0-9.0 [facility]) Specific [place] Ur Auto RFX 1.013 1.002-1.035 [facility] Color, Urine RFX Laboratory test result [facility] ([facility]) Ketone, Urine Auto RFX Laboratory test result [facility] ([facility]) Protein, Urine Auto RFX Laboratory test result [facility] ([facility]) Glucose, Urine (Ua) Auto RFX Laboratory test result [facility] ([facility]) Nitrite, Urine Auto RFX Laboratory test result [facility] ([facility]) Bilirubin, Urine Auto RFX Laboratory test result [facility] ([facility]) Urobilinogen, Urine Auto RFX 4.0 mg/dL 0.0-2.0 [facility] ([facility]) Blood, Urine Blood RFX Laboratory test result [facility] ([facility]) Leukocyte Esterase Ur Auto RFX Laboratory test result [facility] ([facility]) WBC, Urine Auto RFX 63 /HPF 0-3 [facility] ([facility]) Squam Epithelial Cell Ur Aurfx 2 /HPF 0-6 [facility] Bacteria, Urine Auto RFX Laboratory test result [facility] ([facility]) RBC, Urine Auto RFX Laboratory test result 0-3 [facility] ([facility]) Hyaline Cast, Urine Auto RFX 0 /LPF 0-1 [facility] Mucus, Urine RFX Laboratory test result [facility] ID Date Data Source [id number] 04/06/2020 11:44:00 AM EST [facility] Name Value Range Interpretation Code Description Data Marisela rce(s) Supporting Document(s) Blood Type Laboratory test result [facility] AB Screen (Indirect Venita)Vis Laboratory test result [facility] ID Date Data Source [id number] 04/06/2020 11:44:00 AM EST [facility] Name Value Range Interpretation Code Description Data Marisela rce(s) Supporting Document(s) Lipoprotein lipase [Enzymatic activity/volume] in Serum or Plasm a 45 U/L 73-393 [facility] ([facility]) <content>note:<nlbl:demographic_changed> </content>
<content></content> Amylase [Enzymatic activity/volume] in Serum or Plasma 20 U/L 25- 115 [facility] ([facility]) <content>note:<nlbl:demographic_changed> </content>
<content></content> ID Date Data Source [id number] 04/06/2020 11:44:00 AM EST [facility] Name Value Range Interpretation Code Description Data Marisela rce(s) Supporting Document(s) Glucose, Fasting 115 mg/dL 70-100 [facility]) Glomerular Filtration Rate Laboratory test result [facility] ([facility]) <content>Units are mL/min/1.73 m2</content>
<content></content>
<content>Chronic Kidney Disease Staging per NKF:</content>
<content></content>
<content>Stage I & II GFR >=60 Normal to Mildly Decreased</content>
<content>Stage III GFR 30-59 Moderately Decreased</content>
<content>Stage IV GFR 15-29 Severely Decreased</content>
<content>Stage V GFR <15 Very Little GFR Left</content>
<content>ESRD GFR <[address]</content>
<content></content> Blood Urea Nitrogen 10 mg/dL 7-18 [facility] ([facility]) Creatinine For GFR 0.96 mg/dL 0.70-1.30 [facility] ([facility]) Potassium Serum 3.8 meq/L 3.5-5.1 [facility] ([facility]) Carbon Dioxide Level 28 meq/L 21-32 [facility] ([facility]) Chloride Level 104 meq/L 98-107 [facility] ([facility]) Sodium Level 138 meq/L 136-145 [facility] ([facility]) Calcium Level 8.1 mg/dL 8.8-10.2 [facility] ([facility]) Anion Gap 6 meq/L 8-16 [facility]) ID Date Data Source [id number] 04/06/2020 11:44:00 AM EST [facility] ([facility]) Name Value Range Interpretation Code Description Data Marisela rce(s) Supporting Document(s) Ast/Sgot 24 U/L 7-37 [facility]) Alt/SGPT 13 U/L 12-78 [facility] ([facility]) Alkaline Phosphatase 133 U/L 45-117 [facility] ([facility]) Bilirubin,Direct 0.4 mg/dL 0.0-0.2 [facility] ([facility]) Bilirubin,Total 0.9 mg/dL 0.2-1.0 [facility] ([facility]) Albumin/Globulin Ratio 0.6 [facility] ([facility]) Total Protein 7.7 GM/DL 6.4-8.2 [facility] ([facility]) Albumin 2.9 GM/DL 3.2-5.2 [facility]) ID Date Data Source [id number] 04/06/2020 11:44:00 AM EST [facility] ([facility]) Name Value Range Interpretation Code Description Data Marisela rce(s) Supporting Document(s) MB/CK Relative Index 2.78 [facility] <content>DIAGNOSIS CRITERIA</content>
<content>MMB ng/ml Relative Index (RI)</content>
<content>NON-AMI < or = 5 N/A</content>
<content>DAWSON ZONE > 5 < or = 4</content>
<content>AMI > 5 > 4</content>
<content></content> CK-MB Value Mass Laboratory test result [facility] ([facility]) CPK Creatine Phosphokinase 36 U/L 39-308 [facility] Troponin I Laboratory test result [facility]) <content>Troponin I Reference Interval f or Siemens [place] LOCI:</content>
<content></content>
<content>99th Percentile= 0.00-0.045 ng/ml</content>
<content></content>
<content>Risk Stratification:</content>
<content><= 0.10 ng/ml Decreased Risk for Adverse Clinical</content>
<content>Events.</content>
<content>0.10-1.50 ng/ml Increased Risk for Adverse Clinical</content>
<content>Events. Evaluation of additional</content>
<content>criterion and/or repeat testing in 2-6</content>
<content>hours is suggested to rule out myocardial</content>
<content>damage.</content>
<content>>= 1.50 ng/ml Indicative of Myocardial Injury.</content>
<content></content> ID Date Data Source [id number] 04/06/2020 11:44:00 AM EST [facility] ([facility]) Name Value Range Interpretation Code Description Data Marisela rce(s) Supporting Document(s) White Blood Count 8.7 10 4.0-10.0 [facility] ([facility]) Mean Corpuscular Volume 96.4 fl 80.0-96.0 [facility] ([facility]) Hematocrit 37.8 % 42.0-52.0 [facility] Hemoglobin 11.6 g/dL 13.5-17.5 [facility] Red Blood Count 3.92 10 4.30-6.10 [facility] ([facility]) Red Cell Distribution Width 15.4 % 11.5-14.5 [facility] ([facility]) Mean Corpuscular HGB Conc 30.7 g/dL 32.0-36.5 [facility] ([facility]) Mean Corpuscular Hemoglobin 29.6 pg 27.0-33.0 [facility] ([facility]) Lymph % 5.9 % 24.0-44.0 [facility]) Platelet Count, Automated 144 10 150-450 [facility] ([facility]) Neutrophils % 86.7 % 36.0-66.0 [facility] ([facility]) Wise % 6.3 % 0.0-5.0 [facility]) Eos % 0.2 % 0.0-3.0 [facility]) Baso % 0.2 % 0.0-1.0 [facility]) Immature Granulocyte % 0.7 % 0-3.0 [facility] ([facility]) Neutrophils # 7.6 10 1.5-8.5 [facility] ([facility]) Nucleated Red Blood Cell % 0.0 % 0-0 [facility] ([facility]) Eos # 0.0 10 0.0-0.5 [facility]) Wise # 0.6 10 0.0-0.8 [facility]) Lymph # 0.5 10 1.5-5.0 [facility]) Baso # 0.0 10 0.0-0.2 [facility]) ID Date Data Source [id number] 04/06/2020 11:17:00 AM EST [facility] ([facility]) Name Value Range Interpretation Code Description Data Marisela rce(s) Supporting Document(s) Lactate [Mass/volume] in Serum or Plasma 2.2 mmol/L 0.4-2.0 Above upper panic limits [facility] ([facility]) BACK AND VERIFIED BY ID Date Data Source URINE CULTURE 03/21/2020 12:00:00 AM EST eCW1 ([facility]) Name Value Range Interpretation Code Description Data Marisela rce(s) Supporting Document(s) URINE CULTURE eCW1 ([facility]) ID Date Data Source UA URINALYSIS 03/21/2020 12:00:00 AM EST eCW1 ([facility]) Name Value Range Interpretation Code Description Data Marisela rce(s) Supporting Document(s) UA URINALYSIS eCW1 ([facility]) ID Date Data Source [id number] 01/26/2020 12:04:00 PM EDT [facility] ([facility]) Name Value Range Interpretation Code Description Data Marisela rce(s) Supporting Document(s) Urine Color Laboratory test result Abnormal (applies to non-numeric results) [facility] ([facility]) Urine Appearance Laboratory test result Abnormal (applies to non-numeric results) [facility] ([facility]) Specific gravity of Urine 1.020 1.005-1.030 [facility] ([facility]) Urine PH 6.5 units 5.0-9.0 [facility]) Urine Blood Laboratory test result Abnormal (applies to non-numeric results) [facility] ([facility]) Urine Protein Laboratory test result 0-0 Abnormal (applies to non-numeric results) [facility] ([facility]) Urine Leukocytes Laboratory test result Abnormal (applies to non-numeric results) [facility] ([facility]) Urine Ketone Laboratory test result [facility] ([facility]) Urine Nitrite Laboratory test result Abnormal (applies to non-numeric results) [facility] ([facility]) Glucose [Presence] in Urine Laboratory test result [facility] ([facility]) Urine Urobilinogen Laboratory test result 0.2-1.0 Abnorm al (applies to non- numeric results) [facility] ([facility]) Bilirubin.total [Mass/volume] in Serum or Plasma Laboratory test resu lt [facility] ID Date Data Source [id number] 01/26/2020 12:04:00 PM EDT [facility] Name Value Range Interpretation Code Description Data Marisela rce(s) Supporting Document(s) Thyrotropin [Units/volume] in Serum or Plasma by Detec tion limit <= 0.05 mIU/L 7.15 uIU/mL 0.36-3.74 [facility] ID Date Data Source [id number] 01/26/2020 12:04:00 PM EDT [facility] Name Value Range Interpretation Code Description Data Marisela rce(s) Supporting Document(s) Erythrocytes [#/volume] in Blood by Automated count 4.43 x10*6/UL 4.2 0-6.30 [facility] Leukocytes [#/volume] in Blood by Automated count 7.5 x10*3/UL 4.1-10 .9 [facility] MCV 91.0 fL 80.0-97.0 [facility] ([facility]) Hemoglobin [Mass/volume] in Blood 13.8 g/dL 12.0-18.0 [facility] Hematocrit [Volume Fraction] of Blood by Automated count 40.4 % 3 7.0-51.0 [facility]) MCH 31.2 pg 26.0-32.0 [facility]) MCHC 34.2 g/dL 31.0-38.0 [facility] ([facility]) Erythrocyte distribution width [Ratio] by Automated count 13.1 % 11.6-13.7 [facility] Platelets [#/volume] in Blood by Automated count 190 x10*3/UL 140-440 [facility] Lymph % 17.3 % 10.0-58.5 [facility]) MPV 8.5 FL 7.8-11.0 [facility]) Mid % 4.4 % 1.7-9.3 [facility] Mid # 0.3 x10*3/UL 0.1-0.6 [facility] ([facility]) Neut % 78.3 % 37.0-92.0 [facility] Lymph # 1.3 x10*3/UL 0.6-4.1 [facility] ([facility]) Neut # 5.9 x10*3/UL 2.0-7.8 [facility] ([facility]) ID Date Data Source [id number] 06/16/2019 11:52:00 AM EST [facility] ([facility]) Name Value Range Interpretation Code Description Data Marisela rce(s) Supporting Document(s) Thyroxine (T4) free [Mass/volume] in Serum or Plasma 1.14 ng/dL 0.76- 1.46 [facility] ([facility]) ID Date Data Source [id number] 06/16/2019 11:52:00 AM EST [facility] ([facility]) Name Value Range Interpretation Code Description Data Marisela rce(s) Supporting Document(s) Thyrotropin [Units/volume] in Serum or Plasma by Detec tion limit <= 0.05 mIU/L 6.30 uIU/mL 0.36-3.74 [facility] ([facility] ) ID Date Data Source [id number] 06/16/2019 11:52:00 AM EST [facility] ([facility]) Name Value Range Interpretation Code Description Data Marisela rce(s) Supporting Document(s) Triglyceride [Mass/volume] in Serum or Plasma 80 mg/dL 30-150 [facility] ([facility]) Cholesterol [Mass/volume] in Serum or Plasma 173 mg/dL 131-200 [facility] ([facility]) Cholesterol in HDL [Mass/volume] in Serum or Plasma 68 mg/dL 35-60 [facility] ([facility]) Cholesterol in LDL [Mass/volume] in Serum or Plasma by calcu lation 89 CALC 50-159 [facility] ([facility]) ID Date Data Source [id number] 06/16/2019 11:52:00 AM EST [facility] ([facility]) Name Value Range Interpretation Code Description Data Marisela rce(s) Supporting Document(s) Urea nitrogen [Mass/volume] in Serum or Plasma 8 mg/dL 7-18 [facility] ([facility]) Glucose [Mass/volume] in Serum or Plasma 95 mg/dL 74-99 [facility] ([facility]) 100-125 mg/dL PRE-DIABETES/FASTING >126 mg/dL DIABETES/FASTING Potassium [Moles/volume] in Serum or Plasma 4.0 meq/L 3.5-5.1 [facility] ([facility]) Creatinine 0.9 mg/dL 0.6-1.3 [facility] Sodium [Moles/volume] in Serum or Plasma 140 meq/L 136-145 [facility] ([facility]) Carbon dioxide, total [Moles/volume] in Serum or Plasma 31 meq/L 21 -32 [facility] ([facility]) Calcium [Mass/volume] in Serum or Plasma 8.8 mg/dL 8.5-10.1 [facility] ([facility]) Chloride [Moles/volume] in Serum or Plasma 103 meq/L 98-107 [facility] Glomerular filtration rate/1.73 sq M pre dicted among non-blacks [Volume Rate/Area] in Serum or Plasma by Creatinine-based formula (MDRD) Laboratory test result [facility] Glomerular filtration rate/1.73 sq M pre dicted among blacks [Volume Rate/Area] in Serum or Plasma by Creatinine-based formula (MDRD) Laboratory test result [facility]) <content>CHRONIC KIDNEY DISEASE STAGING PER NKF</content>
<content></content>
<content>STAGE I & II GFR >= 60 NORMAL TO MILDLY DECREASED</content>
<content>STAGE III GFR 30-59 MODERATELY DECREASED</content>
<content>STAGE IV GFR 15-29 SEVERELY DECREASED</content>
<content>STAGE V GFR <15 VERY LITTLE GFR LEFT</content>
<content>ESRD GFR <[address]ER</content>
<content></content> ID Date Data Source [id number] 06/16/2019 11:52:00 AM EST [facility] ([facility]) Name Value Range Interpretation Code Description Data Marisela rce(s) Supporting Document(s) Magnesium 1.9 mg/dL 1.8-2.4 [facility]) ID Date Data Source [id number] 06/16/2019 11:52:00 AM EST [facility] ([facility]) Name Value Range Interpretation Code Description Data Marisela rce(s) Supporting Document(s) Erythrocytes [#/volume] in Blood by Automated count 4.97 x10*6/UL 4.2 0-6.30 [facility] ([facility]) Leukocytes [#/volume] in Blood by Automated count 6.7 x10*3/UL 4.1-10 .9 [facility] ([facility]) Hemoglobin [Mass/volume] in Blood 15.0 g/dL 12.0-18.0 [facility] ([facility]) Hematocrit [Volume Fraction] of Blood by Automated count 45.7 % 3 7.0-51.0 [facility] ([facility]) MCH 30.2 pg 26.0-32.0 [facility] MCV 91.9 fL 80.0-97.0 [facility] Platelets [#/volume] in Blood by Automated count 165 x10*3/UL 140-440 [facility] ([facility]) Erythrocyte distribution width [Ratio] by Automated count 13.2 % 11.6-13.7 [facility] ([facility]) MCHC 32.9 g/dL 31.0-38.0 [facility] Lymph % 19.8 % 10.0-58.5 [facility] MPV 9.3 FL 7.8-11.0 [facility] Mid % 6.9 % 1.7-9.3 [facility] Lymph # 1.3 x10*3/UL 0.6-4.1 [facility] ([facility]) Mid # 0.5 x10*3/UL 0.1-0.6 [facility] ([facility]) Neut % 73.3 % 37.0-92.0 [facility] Neut # 4.9 x10*3/UL 2.0-7.8 [facility] ([facility]) ID Date Data Source [id number] 06/10/2019 04:55:00 PM EST [facility] Hospital Name: JULIANO JENKINS : 1955 Age/Sex: 64M Ordering Provider: Luis Gold MD Med Rec #: [id number] Reg Status: [facility] Room #: Date of Service: 06/10/19 Report Number: [id number] cc:Luis Gold MD Send Report To: [id number] XRP/XR Hip Rt 1-2 view w AP Pelvis Reason for exam: RIGHT HIP PAIN FINDINGS: Severe arthritic changes in the right hip. No intrinsic bony lesionsor fractures or any other significant findings. IMPRESSION: Severe arthritic changes in the right hip. Fluoroscopy time in seconds: Number of Exposures: Time Portable Image Performed: Contrast Agent in ml: Method of Administration: REPORT SIGNATURE ON FILE Reported By: Danny Alexis MD <Electronically signed by Bashir Alexis MD> 06/11/19 1518 Dictation Date/Time: 06/10/19 1254 Transcribed Date/Time: 06/10/19 1655 Tier Lift Operator: DENISE Name Value Range Interpretation Code Description Data Marisela rce(s) Supporting Document(s) Procedure Social History Code Duration Value Status Description Data Source(s ) Smoking 03/21/2020 12:00:00 AM EST Former Smoker completed Former Smoker eCW1 ([facility]) Smoking 03/21/2020 12:00:00 AM EST Former Smoker completed Former Smoker eCW1 ([facility]) Smoking 03/21/2020 12:00:00 AM EST Former Smoker completed Former Smoker eCW1 ([facility]) Smoking 03/21/2020 12:00:00 AM EST Former Smoker completed Former Smoker eCW1 ([facility]) Smoking 03/21/2020 12:00:00 AM EST Former Smoker completed Former Smoker eCW1 ([facility]) Vital Signs ID Date Data Source UNK Name Value Range Interpretation Code Description Data Source(s) Body height 65.25 [in_i] 65.25 [in_i] [facility] ([facility]) 5'5.25" Heart rate 52 /min 52 /min [facility] ([facility]) Diastolic blood pressure 80 mm[Hg] 80 mm[Hg] [facility] ([facility]) LT Arm Systolic blood pressure 110 mm[Hg] 110 mm[Hg] [facility] ([facility]) LT Arm Oxygen saturation in Arterial blood by Pulse oximetry 94 % 94 % [facility] ([facility]) RM Air Body height 65.25 [in_i] 65.25 [in_i] [facility]) 5'5.25" Heart rate 97 /min 97 /min [facility] ([facility]) Diastolic blood pressure 70 mm[Hg] 70 mm[Hg] [facility] ([facility]) Systolic blood pressure 112 mm[Hg] 112 mm[Hg] [facility] ([facility]) Diastolic blood pressure 72 mm[Hg] 72 mm[Hg] eCW1 ([facility]) Systolic blood pressure 122 mm[Hg] 122 mm[Hg] e CW1 ([facility]) Body temperature 97.0 [degF] 97.0 [degF] eCW1 ( [facility]) Respiratory rate 20 /min 20 /min [facility]CW1 [facility]) Heart rate 80 /min 80 /min eCW1 ([facility]) Body mass index (BMI) [Ratio] 69.96 kg/m2 69.96 kg/m2 eCW1 ([facility]) Body height 63 [in_i] 63 [in_i] eCW1 ([facility]) Body weight 395 [lb_av] 395 [lb_av] eCW1 [facility] Body mass index (BMI) [Ratio] 62.1 kg/m2 62.1 k g/m2 [facility] ([facility]) Body weight 376.00 [lb_av] 376.00 [lb_av] [facility] ([facility]) Body height 65.25 [in_i] 65.25 [in_i] [facility] ([facility]) 5'5.25" Body mass index (BMI) [Ratio] 66.2 kg/m2 66.2 k g/m2 [facility] ([facility]) Oxygen saturation in Arterial blood by Pulse oximetry 99 % 99 % [facility]) Air Body weight 401.00 [lb_av] 401.00 [lb_av] [facility] ([facility]) Body height 65.25 [in_i] 65.25 [in_i] [facility] ([facility]) 5'5.25" Heart rate 87 /min 87 /min [facility] ([facility]) Diastolic blood pressure 70 mm[Hg] 70 mm[Hg] [facility] ([facility]) Systolic blood pressure 110 mm[Hg] 110 mm[Hg] [facility] ([facility]) Body weight 176.450 kg 176.450 kg [facility] ) Body mass index (BMI) [Ratio] 64.7 kg/m2 64.7 k g/m2 [facility] ([facility] [facility], [facility] Body weight 389.00 [lb_av] 389.00 [lb_av] [facility] ([facility], ) Body height 65 [in_i] 65 [in_i] [facility] ([facility], ) 5'5" Diastolic blood pressure 68 mm[Hg] 68 mm[Hg] [facility] ([facility], ) Systolic blood pressure 114 mm[Hg] 114 mm[Hg] [facility] ([facility]) Body weight 180.533 kg 180.533 kg [facility] ([facility]) Body mass index (BMI) [Ratio] 66.2 kg/m2 66.2 k g/m2 [facility] ([facility]) Body weight 398.00 [lb_av] 398.00 [lb_av] [facility] ([facility]) Body height 65 [in_i] 65 [in_i] [facility] ([facility]) 5'5" Diastolic blood pressure 80 mm[Hg] 80 mm[Hg] [facility] ([facility]) Systolic blood pressure 150 mm[Hg] 150 mm[Hg] [facility] ([facility]) Body mass index (BMI) [Ratio] 64.9 kg/m2 64.9 k g/m2 [facility] Oxygen saturation in Arterial blood by Pulse oximetry 94 % 94 % [facility] ([facility]) Air Body weight 393.00 [lb_av] 393.00 [lb_av] [facility] ([facility]) Body height 65.25 [in_i] 65.25 [in_i] [facility] ([facility]) 5'5.25" Heart rate 78 /min 78 /min [facility] ([facility]) Diastolic blood pressure 64 mm[Hg] 64 mm[Hg] [facility] ([facility]) Systolic blood pressure 120 mm[Hg] 120 mm[Hg] [facility] ([facility]) ID Date Data Source [id number] 06/23/2019 08:55:00 AM EST [facility] Name Value Range Interpretation Code Description Data Source(s) Weight (Calculated Kilograms) 146.96 146.96 [facility] Height (Calculated Centimeters) 165.1 165. 1 [facility] Body Mass Index (BMI) 53.8 53.8 [facility]
[2020-05-23] MEDS ORDERED: WARF-22 PO (23:41)
[2020-05-24] MEDS ORDERED: ONDANSETRON 4MG/2ML VIAL IV ONE (00:15)
[2020-05-24] MEDS ORDERED: MORPHINE 4 MG/ML 1ML VIAL/SYRINGE (J2270) IV PRN (00:15)
--- NOTE | 2020-05-24 01:11 | REPVR ---
PROCEDURE INFORMATION: Exam: XR Right Knee Exam date and time: 05/24/2020 12:19 AM Age: 64 years old Clinical indication: Other: Fall, pain TECHNIQUE: Imaging protocol: XR Right knee. Views: 4 or more views. COMPARISON: No relevant prior studies available. FINDINGS: Bones/joints: No acute fracture or dislocation of the right knee. Tricompartment degenerative changes are visualized. A small patellar enthesophyte is seen. Ossific ridging of the posterior cortex of the proximal tibial shaft is visualized, which is nonspecific. There is significant narrowing of the lateral compartment of the knee. Spurring of the tibial spine visualized. Soft tissues: Soft tissue prominence or swelling of the lower extremity visualized. IMPRESSION: 1. No acute fracture or dislocation of the right knee. 2. Tricompartment degenerative changes are visualized. 3. Additional findings described above. Electronically signed by: Navarro Bonilla On 05/24/2020 01:11:20 AM
--- OUTSIDE RECORDS SUMMARY | 2020-05-24 03:07 | CCD ---
Author Author [facility] Organization [facility] Address Unknown Phone Unavailable Care Team Providers Care Maintenance Apprentice Name Role Phone Harley Gurrola MD Unavailable Unavailable Harley Gurrola MD Unavailable Unavailable Harley Gurrola MD Unavailable Unavailable Harley Gurrola MD Unavailable Unavailable Harley Gurrola MD Unavailable Unavailable Harley Gurrola MD Unavailable Unavailable Harley Gurrola MD Unavailable Unavailable Harley Gurrola MD Unavailable Unavailable IzabelaHarley MD Unavailable Unavailable AthensHarley MD Unavailable Unavailable AthensHarley MD Unavailable Unavailable IzabelaHarley MD Unavailable Unavailable AthensHarley MD Unavailable Unavailable AthensHarley MD Unavailable Unavailable IzabelaHarley MD Unavailable Unavailable IzabelaHarley MD Unavailable Unavailable AthensHarley MD Unavailable Unavailable AthensHarley MD Unavailable Unavailable IzabelaHarley MD Unavailable Unavailable IzabelaHarley MD Unavailable Unavailable IzabelaHarley MD Unavailable Unavailable IzabelaHarley MD Unavailable Unavailable IzabelaHarley MD Unavailable Unavailable AthensHarley MD Unavailable Unavailable IzabelaHarley MD Unavailable Unavailable AthensHarley MD Unavailable Unavailable IzabelaHarley MD Unavailable Unavailable AthensHarley MD Unavailable Unavailable IzabelaHarley MD Unavailable Unavailable IzabelaHarley MD Unavailable Unavailable IzabelaHarley MD Unavailable Unavailable AthensHarley MD Unavailable Unavailable IzabelaHarley MD Unavailable Unavailable AthensHarley MD Unavailable Unavailable AthensHarley MD Unavailable Unavailable IzabelaHarley MD Unavailable Unavailable IzabelaHarley MD Unavailable Unavailable IzabelaHarley MD Unavailable Unavailable AthensHarley MD Unavailable Unavailable IzabelaHarley MD Unavailable Unavailable IzabelaHarley MD Unavailable Unavailable IzabelaHarley MD Unavailable Unavailable AthensHarley MD Unavailable Unavailable IzabelaHarley tate MD Unavailable Unavailable AthensHarley MD Unavailable Unavailable AthensHarley MD Unavailable Unavailable IzabelaHarley MD Unavailable Unavailable IzabelaHarley MD Unavailable Unavailable AthensHarley MD Unavailable Unavailable AthensHarley MD Unavailable Unavailable IzabelaHarley tate MD Unavailable Unavailable IzabelaHarley MD Unavailable Unavailable IzabelaHarley MD Unavailable Unavailable IzabelaHarley MD Unavailable Unavailable IzabelaHarley MD Unavailable Unavailable AthensHarley MD Unavailable Unavailable AthensHarely MD Unavailable Unavailable IzabelaHarley MD Unavailable Unavailable IzabelaHarley MD Unavailable Unavailable AthensHarley MD Unavailable Unavailable IzabelaHarley MD Unavailable Unavailable AthensHarley MD Unavailable Unavailable IzabelaHarley MD Unavailable Unavailable AthensHarley MD Unavailable Unavailable IzabelaHarley MD Unavailable Unavailable IzabelaHarley MD Unavailable Unavailable IzabelaHarley MD Unavailable Unavailable IzabelaHarley MD Unavailable Unavailable AthensHarley MD Unavailable Unavailable IzabelaHarley MD Unavailable Unavailable AthensHarley MD Unavailable Unavailable IzabelaHarley MD Unavailable Unavailable IzabelaHarley MD Unavailable Unavailable AthensHarley MD Unavailable Unavailable IzabelaHarley MD Unavailable Unavailable IzabelaHarley MD Unavailable Unavailable IzabelaHarley MD Unavailable Unavailable AthensHarley MD Unavailable Unavailable AthensHarley MD Unavailable Unavailable Izabela F Lanre FIERRO Unavailable Unavailable AthensHarley MD Unavailable Unavailable Athens F Lanre FIERRO Unavailable Unavailable IzabelaHarley MD Unavailable Unavailable IzabelaHarley MD Unavailable Unavailable AthensHarley MD Unavailable Unavailable IzabelaHarley MD Unavailable Unavailable [...] Unavailable Lucila Leach MD Unavailable Unavailable Lucila Laech MD Unavailable Unavailable Lucila Leach MD Unavailable [...] Unavailable Nataliia Segura MD Unavailable Unavailable ImeldaNataliia harris MD Unavailable Unavailable ImeldaNataliia MD Unavailable Unavailable ImeldaNataliia avalos MD Unavailable Unavailable ImeldaNataliia MD Unavailable Unavailable ImeldaNataliia MD Unavailable Unavailable ImeldaNataliia MD Unavailable Unavailable ImeldaNataliia MD Unavailable Unavailable ImeldaNataliia harris MD Unavailable Unavailable ImeldaNataliia MD Unavailable Unavailable ImeldaNataliia MD Unavailable Unavailable ImeldaNataliia MD Unavailable Unavailable ImeldaNataliia MD Unavailable Unavailable ImeldaNataliia MD Unavailable Unavailable ImeldaNataliia MD Unavailable Unavailable ImeldaNataliia MD Unavailable Unavailable ImeldaNataliia MD Unavailable Unavailable ImeldaNataliia MD Unavailable Unavailable ImeldaNataliia avalos MD Unavailable Unavailable ImeldaNataliia harris MD Unavailable Unavailable Nataliia Segura MD Unavailable Unavailable Nataliia Segura MD Unavailable Unavailable Nataliia Segura MD Unavailable Unavailable Nataliia Segura MD Unavailable Unavailable Nataliia Segura MD Unavailable Unavailable Nataliia Segura MD Unavailable Unavailable Nataliia Segura MD Unavailable Unavailable Nataliia Segura MD Unavailable Unavailable Nataliia Segura MD Unavailable Unavailable ImeldaNataliia avalos MD Unavailable Unavailable Nataliia Segura MD Unavailable [...] Nataliia Segura MD Unavailable Unavailable Brock, Jeannette HOSPITAL ADMINISTRATOR Unavailable Unavailable Brock, Jeannette HOSPITAL ADMINISTRATOR Unavailable Unavailable Brock, Jeannette HOSPITAL ADMINISTRATOR Unavailable Unavailable Brock, Jeannette HOSPITAL ADMINISTRATOR Unavailable Unavailable Brock, Jeannette HOSPITAL ADMINISTRATOR Unavailable Unavailable Brock, Jeannette HOSPITAL ADMINISTRATOR Unavailable Unavailable Brock, Jeannette HOSPITAL ADMINISTRATOR Unavailable Unavailable Brock, Jeannette HOSPITAL ADMINISTRATOR Unavailable Unavailable Brock, Jeannette HOSPITAL ADMINISTRATOR Unavailable Unavailable Brock, Jeannette HOSPITAL ADMINISTRATOR Unavailable Unavailable Brock, Jeannette HOSPITAL ADMINISTRATOR Unavailable Unavailable Brock, Jeannette HOSPITAL ADMINISTRATOR Unavailable Unavailable Brock, Jeannette HOSPITAL ADMINISTRATOR Unavailable Unavailable Brock, Jeannette HOSPITAL ADMINISTRATOR Unavailable Unavailable Brock, Jeannette HOSPITAL ADMINISTRATOR Unavailable Unavailable Brock, Jeannette HOSPITAL ADMINISTRATOR Unavailable Unavailable Brock, Jeannette HOSPITAL ADMINISTRATOR Unavailable Unavailable Brock, Jeannette HOSPITAL ADMINISTRATOR Unavailable Unavailable Brock, Jeannette HOSPITAL ADMINISTRATOR Unavailable Unavailable Brock, Jeannette HOSPITAL ADMINISTRATOR Unavailable Unavailable Brock, Jeannette HOSPITAL ADMINISTRATOR Unavailable Unavailable Brock, Jeannette HOSPITAL ADMINISTRATOR Unavailable Unavailable Brock, Jeannette HOSPITAL ADMINISTRATOR Unavailable Unavailable Brock, Jeannette HOSPITAL ADMINISTRATOR Unavailable Unavailable Brock, Jeannette HOSPITAL ADMINISTRATOR Unavailable Unavailable Brock, Jeannette HOSPITAL ADMINISTRATOR Unavailable Unavailable PICKERAL JR, J MARIAH PA-C [...] J MARIAH PA-C Unavailable Unavailable Ancelmo, Tiffany HOSPITAL ADMINISTRATOR Unavailable Unavailable Ancelmo, Tiffany HOSPITAL ADMINISTRATOR Unavailable Unavailable Ancelmo, Tiffany HOSPITAL ADMINISTRATOR Unavailable Unavailable Ancelmo, Tiffany HOSPITAL ADMINISTRATOR Unavailable Unavailable Ancelmo, Tiffany HOSPITAL ADMINISTRATOR Unavailable Unavailable Ancelmo, Tiffany HOSPITAL ADMINISTRATOR Unavailable Unavailable Ancelmo, Tiffany HOSPITAL ADMINISTRATOR Unavailable Unavailable Ancelmo, Tiffany HOSPITAL ADMINISTRATOR Unavailable Unavailable Ancelmo, Tiffany HOSPITAL ADMINISTRATOR Unavailable Unavailable Ancelmo, Tiffany HOSPITAL ADMINISTRATOR Unavailable Unavailable Ancelmo, Tiffany HOSPITAL ADMINISTRATOR Unavailable Unavailable Ancelmo, Tiffany HOSPITAL ADMINISTRATOR Unavailable Unavailable Ancelmo, Tiffany HOSPITAL ADMINISTRATOR Unavailable Unavailable Ancelmo, Tiffany HOSPITAL ADMINISTRATOR Unavailable Unavailable Ancelmo, Tiffany HOSPITAL ADMINISTRATOR Unavailable Unavailable Ancelmo, Tiffany HOSPITAL ADMINISTRATOR Unavailable Unavailable Ancelmo, Tiffany HOSPITAL ADMINISTRATOR Unavailable Unavailable Ancelmo, Tiffany HOSPITAL ADMINISTRATOR Unavailable Unavailable Ancelmo, Tiffany HOSPITAL ADMINISTRATOR Unavailable Unavailable Ancelmo, Tiffany HOSPITAL ADMINISTRATOR Unavailable Unavailable Ancelmo, Tiffany HOSPITAL ADMINISTRATOR Unavailable Unavailable Ancelmo, Tiffany HOSPITAL ADMINISTRATOR Unavailable Unavailable Ancelmo, Tiffany HOSPITAL ADMINISTRATOR Unavailable Unavailable Ancelmo, Tiffany HOSPITAL ADMINISTRATOR Unavailable Unavailable Ancelmo, Tiffany HOSPITAL ADMINISTRATOR Unavailable Unavailable Ancelmo, Tiffany HOSPITAL ADMINISTRATOR Unavailable Unavailable Ancelmo, Tiffany HOSPITAL ADMINISTRATOR Unavailable Unavailable Ancelmo, Tiffany HOSPITAL ADMINISTRATOR Unavailable Unavailable Ancelmo, Tiffany HOSPITAL ADMINISTRATOR Unavailable Unavailable Ancelmo, Tiffany HOSPITAL ADMINISTRATOR Unavailable Unavailable Ancelmo, Tiffany HOSPITAL ADMINISTRATOR Unavailable Unavailable Ancelmo, Tiffany HOSPITAL ADMINISTRATOR Unavailable Unavailable Ancelmo, Tiffany HOSPITAL ADMINISTRATOR Unavailable Unavailable Ancelmo, Tiffany HOSPITAL ADMINISTRATOR Unavailable Unavailable Ancelmo, Tiffany HOSPITAL ADMINISTRATOR Unavailable Unavailable Ancelmo, Tiffany HOSPITAL ADMINISTRATOR Unavailable Unavailable Ancelmo, Tiffany HOSPITAL ADMINISTRATOR Unavailable Unavailable Ancelmo, Tiffany HOSPITAL ADMINISTRATOR Unavailable Unavailable Ancelmo, Tiffany HOSPITAL ADMINISTRATOR Unavailable Unavailable Ancelmo, Tiffany HOSPITAL ADMINISTRATOR Unavailable Unavailable Ancelmo, Tiffany HOSPITAL ADMINISTRATOR Unavailable Unavailable Ancelmo, Tiffany HOSPITAL ADMINISTRATOR Unavailable Unavailable Ancelmo, Tiffany HOSPITAL ADMINISTRATOR Unavailable Unavailable Ancelmo, Tiffany HOSPITAL ADMINISTRATOR Unavailable Unavailable Ancelmo, Tiffany HOSPITAL ADMINISTRATOR Unavailable Unavailable Ancelmo, Tiffany HOSPITAL ADMINISTRATOR Unavailable Unavailable Ancelmo, Tiffany HOSPITAL ADMINISTRATOR Unavailable Unavailable Ancelmo, Tiffany HOSPITAL ADMINISTRATOR Unavailable Unavailable Ancelmo, Tiffany HOSPITAL ADMINISTRATOR Unavailable Unavailable Ancelmo, Tiffany HOSPITAL ADMINISTRATOR Unavailable Unavailable Ancelmo, Tiffany HOSPITAL ADMINISTRATOR Unavailable Unavailable Ancelmo, Tiffany HOSPITAL ADMINISTRATOR Unavailable Unavailable Ancelmo, Tiffany HOSPITAL ADMINISTRATOR Unavailable Unavailable Dare, V EAGLE PA-C Unavailable Unavailable Dare, V EAGLE PA-C Unavailable Unavailable Dare, V EAGLE PA-C Unavailable Unavailable Dare, V EAGLE PA-C Unavailable Unavailable Dare, V EAGLE PA-C Unavailable Unavailable Leroy, V EAGLE PA-C Unavailable Unavailable Re-disclosure Warning [...] is protected by Article 27-F of the [facility] Public Health law. If you continue you may have access to information: Regarding HIV / AIDS; Provided by facilities licensed or operated by the [facility] Office of Mental Health; or Provided by the [facility] Office for People With Developmental Disabilities. If such information is present, then the following [facility] mandated warning applies: This [...] law may result in a fine or long term sentence or both. A general authorization for the release of medical or other information is NOT sufficient authorization for further disc losure. Family History Family Member Name Family Member Gender Family Member Status Date o f Status Description Data Source(s) Unknown Male Problem [facility] ([facility], ) Encounters Encounter Providers Location Date Indications Data Source(s ) Outpatient Attender: EAGLE TURNERCReferrer: Arturo SOLER 05/23/2020 12:00:00 AM EST [facility] Outpatient Attender: Jeannette Stein 01:40:00 PM EST [facility] ([facility] ) Unknown [address] [facility] [id number] 04/24/2020 12:00:00 AM EST eCW1 ([facility]) Outpatient Attender: MARIAH Stein 1 05/30/2019 01:00:00 PM EST [facility] ([facility] ) Unknown [address] [facility] [address] [id number] 03/28/2020 12:00:00 AM EST eCW1 ([facility]) Unknown [address] [facility] [address] [address] 03/23/2020 12:00:00 AM EST eCW1 ([facility]) Unknown [address] [facility] [address] [address] 03/23/2020 12:00:00 AM EST eCW1 ([facility]) Outpatient [address] [id number] 03/21/2020 12:00:00 AM EST eCW1 ([facility]) Outpatient Attender: MARIAH Stein 1 02:00:00 PM EDT [facility] ([facility] ) Outpatient Attender: Lucila Leach MD SJCassandra.[email or web address] 1011/2019 12:00:00 AM EDT - 02/15/2020 01:50:37 PM EDT [facility] Outpatient Attender: MARIAH Stein 0 01/26/2020 11:20:00 AM EDT [facility] ([facility] ) Outpatient Attender: Tiffany Stein 0 10/20/2019 02:00:00 PM EDT [facility] ([facility] ) Outpatient 07/12/2019 03:15:00 PM EST [facility] Outpatient Attender: Gia Stein 10:00:00 AM EST [facility] ([facility] ) Outpatient Attender: Luis Gold MD CPSCAORT-CPSCAORT 11:20:00 AM EST - 06/10/2019 11:21:00 AM EST [facility] al Patient discharged. Immunizations Vaccine Date Status Description Data Source(s) Influenza, injectable, MDCK, preservative free, mariposa valent 03/30/2020 01:20:00 PM EST completed [facility]) Medications Medication Brand Name Start Date Product Form Dose Route Admi nistrative Instructions Pharmacy Instructions Status Indications Reaction Description Data Source(s) Administration Of Flu Vaccine 03/30/2020 12:00:00 AM EST completed [facility]) Medication administered onsite Cephalexin 500 MG Oral Capsule Cephalexin 03/30/2020 12:00:00 AM EST ORAL completed [facility] ([facility]) Zolpidem tartrate 10 MG Oral Tablet Zolpidem Tartrate 03/11 12:00:00 AM EST ORAL active [facility] ([facility]) 24 HR metoprolol succinate 50 MG Extended Release Oral Tablet [Toprol] Toprol XL 02/27/2020 12:00:00 AM EDT ORAL active [facility] ([facility]) Sertraline 100 MG Oral Tablet Sertraline HCL 02/27/2020 12:00:00 AM E DT ORAL active [facility] ([facility]) NITROFURANTOIN, MACROCRYSTALS 100 MG Oral Capsule Nitrofuran toin Macrocrystal 01/26/2020 12:00:00 AM EDT ORAL completed [facility] ([facility]) 50 mg 06/17/2019 12:00:00 AM EST tablet 30 TAKE 1/2 TABLET BY MOUTH EVERY MORNING FOR 4 DAYS THEN TAKE ONE TABLET BY MOUTH EVERY DAY TAKE 1/2 TABLET BY MOUTH EVERY MORNING FOR 4 DAYS THEN TAKE ONE TABLET BY MOUTH EVERY DAY SOLD: 06/19/2019 [facility] Sertraline 50 MG Oral Tablet Sertraline HCL 06/16/2019 12:00:00 AM EST ORAL active [facility] ([facility]) 5 mg 06/08/2019 12:00:00 AM [...] type / Coverage type Policy ID Covered libertarian ID Covered libertarian's relationship to mitchell Policy Mitchell Plan Information MEDICARE [id number] SP [id number] [facility] MEDICARE [id number] Cara 18 [id number] [facility] [id number] SP [id number] MEDICARE [id number] A MEDICARE [id number] SP [id number] MEDICARE [id number] SP [id number] A WELLCARE O [id number] S [id number] WELLCARE [id number] SP [id number] WELLCARE [id number] Other [id number] [employer] Plans [place] [employer] [id number] Self [id number] Wellcare/Todays Optmcr Commercial [id number] Self [id number] [employer] Plans [place] [employer] [id number] Self [id number] MEDICARE A [id number] Self [id number] A WELLCARE [id number] SP [id number] Wellcare/Todays Optmcr Commercial [id number] Self [id number] Wellcare Today's Options Commercial [id number] Self [id number] TODAYS OPTIONS [id number] SP [id number] [place] Cash Check Card [id number] Self [id number] [place] Cash Check Card [id number] Self [id number] [place] Cash Check Card [id number] Self [id number] TODAYS OPTIONS [id number] SP [id number] [employer] [id number] Self [id number] Todays Option Commercial [id number] Self [id number] Medicare Part A [place] Primary [id number] Self [id number] MEDICARE PART A-O/P [id number] 18 [id number] [place] [id number] 18 [id number] MEDICARE PART A [facility] [id number] 18 [id number] TODAYS OPTION -RECURRING [id number] CIGNA HEALTHCARE -RECURRING [id number] 18 [id number] [employer] HEALTHC[employer] -RECURRING [id number] 18 [id number] TODAYS OPTION -RECURRING [id number] 18 [id number] MEDICARE -O/P [id number] 18 [id number] MEDICARE [id number] SP [id number] A MEDICARE C [id number] S [id number] A MEDICARE PART A-CL[facility]IC [id number] 18 [id number] MEDICARE OUTPATIENT M [id number] S [id number] WELLCARE HLTH PLANS O [id number] S [id number] UNAVAILABLE UNAVAILA BLE Problems, Conditions, and Diagnoses Code Display Name Description Problem Type Effective Dates Data Source(s) 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 Problem 03/21/2020 12:00:00 AM EST eCW1 ([facility]) I48.19 Other persistent atrial fibrillation Oth er persistent atrial fibrillation Diagnosis 02/15/2020 01:01:44 PM EDT [facility] E66.01 Morbid (severe) obesity due to excess ca lories MORBID (SEVERE) OBESITY DUE TO EXCESS CALORIES Diagnosis 06/10/2019 11:20:00 AM [facility] Z96.642 Presence of left artificial hip joint [place] ESENCE OF LEFT ARTIFICIAL HIP JOINT Diagnosis 06/10/2019 11:20:00 AM [facility] M16.11 Unilateral primary osteoarthritis, right hip UNILATERAL PRIMARY OSTEOARTHRITIS, RIGHT HIP Diagnosis 06/10/2019 11:20:00 AM [facility] M25.551 Pain in right hip PAIN IN RIGHT HIP Diagnosis 06/10 11:20:00 AM [facility] Surgeries/Procedures Procedure Description Date Indications Data Source(s) ECG ROUTINE ECG W/LEAST 12 LDS W/I&R 01/26/2020 12:00: 00 AM EDT [facility] ([facility]) [facility] outpatient clinic visit for assessment and ma nagement of a patient Hospital Outpatient Clinic Visit 06/10/2019 12:00:00 AM [facility] [address] X-RAY EXAM HIP UNI 2-3 VIEWS 06/10/2019 12:00:00 AM [facility] Results ID Date Data Source [id number] 04/06/2020 02:21:00 PM [facility] ([facility]) Name Value Range Interpretation Code Description Data Marisela rce(s) Supporting Document(s) Laboratory test finding (navigational concept) Laboratory test result [facility] ([facility]) A false negative result may occur [...] pathogens. DISCLAIMER: Testing was performed using the [employer] SARS-CoV-2 test. This test was developed and its performance characteristics determined by [employer]. This test has not been FDA cleared [...] or revoked sooner. ID Date Data Source [id number] 04/06/2020 12:25:00 PM EST [facility] Name Value Range Interpretation Code Description Data Marisela rce(s) Supporting Document(s) Appearance, Urine RFX Laboratory test result [facility] PH,Urine RFX 6.0 units 5.0-9.0 [facility] Specific [place] Ur Auto RFX 1.013 1.002-1.035 [facility] Color, Urine RFX Laboratory test result [facility] Ketone, Urine Auto RFX Laboratory test result [facility] ([facility]) Protein, Urine Auto RFX Laboratory test result [facility] Glucose, Urine (Ua) Auto RFX Laboratory test result [facility] Nitrite, Urine Auto RFX Laboratory test result [facility] ([facility]) Bilirubin, Urine Auto RFX Laboratory test result [facility] ([facility]) Urobilinogen, Urine Auto RFX 4.0 mg/dL 0.0-2.0 [facility] Blood, Urine Blood RFX Laboratory test result [facility] ([facility]) Leukocyte Esterase Ur Auto RFX Laboratory test result [facility] ([facility]) WBC, Urine Auto RFX 63 /HPF 0-3 [facility] Squam Epithelial Cell Ur Aurfx 2 /HPF 0-6 [facility] Bacteria, Urine Auto RFX Laboratory test result [facility] ([facility]) RBC, Urine Auto RFX Laboratory test result 0-3 [facility] ([facility]) Hyaline Cast, Urine Auto RFX 0 /LPF 0-1 M [facility]ENT ([facility]) Mucus, Urine RFX Laboratory test result [facility] ID Date Data Source [id number] 04/06/2020 11:44:00 AM EST [facility] ([facility] Name Value Range Interpretation Code Description Data Marisela rce(s) Supporting Document(s) Blood Type Laboratory test result [facility] AB Screen (Indirect Venita)Vis Laboratory test result [facility] ID Date Data Source [id number] 04/06/2020 11:44:00 AM EST [facility] ([facility] Name Value Range Interpretation Code Description Data Marisela rce(s) Supporting Document(s) Lipoprotein lipase [Enzymatic activity/volume] in Serum or Plasm a 45 U/L 73-393 [facility] ([facility]) <content>note:<nlbl:demographic_changed> </content>
<content></content> Amylase [Enzymatic activity/volume] in Serum or Plasma 20 U/L 25- 115 [facility] ([facility]) <content>note:<nlbl:demographic_changed> </content>
<content></content> ID Date Data Source [id number] 04/06/2020 11:44:00 AM EST [facility] ([facility] Name Value Range Interpretation Code Description Data Marisela rce(s) Supporting Document(s) Glucose, Fasting 115 mg/dL 70-100 [facility] ([facility]) Glomerular Filtration Rate [facility] <content>Units are mL/min/1.73 m2</content>
<content></content>
<content>Chronic Kidney Disease Staging per NKF:</content>
<content></content>
<content>Stage I & II GFR >=60 Normal to Mildly Decreased</content>
<content>Stage III GFR 30-59 Moderately Decreased</content>
<content>Stage IV GFR 15-29 Severely Decreased</content>
<content>Stage V GFR <15 Very Little GFR Left</content>
<content>ESRD GFR <15 on AQUATIC CENTRE MANAGER</content>
<content></content> Blood Urea Nitrogen 10 mg/dL 7-18 [facility] ([facility]) Creatinine For GFR 0.96 mg/dL 0.70-1.30 [facility] ([facility]) Potassium Serum 3.8 meq/L 3.5-5.1 [facility] ([facility]) Carbon Dioxide Level 28 meq/L 21-32 [facility] ([facility]) Chloride Level 104 meq/L 98-107 [facility] ([facility]) Sodium Level 138 meq/L 136-145 [facility] ([facility]) Calcium Level 8.1 mg/dL 8.8-10.2 [facility] ([facility]) Anion Gap 6 meq/L 8-16 [facility] ID Date Data Source [id number] 04/06/2020 11:44:00 AM EST [facility] ([facility]) Name Value Range Interpretation Code Description Data Marisela rce(s) Supporting Document(s) Ast/Sgot 24 U/L 7-37 [facility] Alt/SGPT 13 U/L 12-78 [facility] ([facility]) Alkaline Phosphatase 133 U/L 45-117 [facility] ([facility]) Bilirubin,Direct 0.4 mg/dL 0.0-0.2 [facility] ([facility]) Bilirubin,Total 0.9 mg/dL 0.2-1.0 [facility] ([facility]) Albumin/Globulin Ratio 0.6 [facility] ([facility]) Total Protein 7.7 GM/DL 6.4-8.2 [facility] ([facility]) Albumin 2.9 GM/DL 3.2-5.2 [facility] ([facility] ID Date Data Source [id number] 04/06/2020 11:44:00 AM EST MED[facility] ([facility]) Name Value Range Interpretation Code Description Data Marisela rce(s) Supporting Document(s) MB/CK Relative Index 2.78 [facility] ([facility]) <content>DIAGNOSIS CRITERIA</content>
<content>MMB ng/ml Relative Index (RI)</content>
<content>NON-AMI < or = 5 N/A</content>
<content>DAW[place] ZONE > 5 < or = 4</content>
<content>AMI > 5 > 4</content>
<content></content> CK-MB Value Mass Laboratory test result [facility] ([facility]) CPK Creatine Phosphokinase 36 U/L 39-308 [facility] Troponin I Laboratory test result [facility] <content>Troponin I Reference Interval f or Siemens [place] LOCI:</content>
<content></content>
<content>99th Percentile= 0.00-0.045 ng/ml</content>
<content></content>
<content>Risk Stratification:</content>
<content><= 0.10 ng/ml Decreased Risk for Adverse Clinical</content>
<content>Events.</content>
<content>0.10-1.50 ng/ml Increased Risk for Adverse Clinical</content>
<content>Events. Evaluation of additional</content>
<content>criterion and/or repeat testing in 2-6</content>
<content>hours is suggested to rule out myocardial</content>
<content>damage.</content>
<content>>= 1.50 ng/ml Indicative of Myocardial Injury.</content>
<content></content> ID Date Data Source [id number] 04/06/2020 11:44:00 AM EST [facility] ([facility]) Name Value Range Interpretation Code Description Data Marisela rce(s) Supporting Document(s) White Blood Count 8.7 10 4.0-10.0 [facility] ([facility]) Mean Corpuscular Volume 96.4 fl 80.0-96.0 [facility] ([facility]) Hematocrit 37.8 % 42.0-52.0 [facility]) Hemoglobin 11.6 g/dL 13.5-17.5 [facility]) Red Blood Count 3.92 10 4.30-6.10 [facility] ([facility]) Red Cell Distribution Width 15.4 % 11.5-14.5 OR DENT ([facility]) Mean Corpuscular HGB Conc 30.7 g/dL 32.0-36.5 MEDE NT ([facility]) Mean Corpuscular Hemoglobin 29.6 pg 27.0-33.0 ME DENT ([facility]) Lymph % 5.9 % 24.0-44.0 [facility]) Platelet Count, Automated 144 10 150-450 MEDE NT ([facility]) Neutrophils % 86.7 % 36.0-66.0 [facility] ([facility]) [place] % 6.3 % 0.0-5.0 [facility]) Eos % 0.2 % 0.0-3.0 [facility]) Baso % 0.2 % 0.0-1.0 [facility]) Immature Granulocyte % 0.7 % 0-3.0 [facility] ([facility]) Neutrophils # 7.6 10 1.5-8.5 [facility] ([facility]) Nucleated Red Blood Cell % 0.0 % 0-0 MED ENT ([facility]) Eos # 0.0 10 0.0-0.5 [facility]) [place] # 0.6 10 0.0-0.8 [facility]) Lymph # 0.5 10 1.5-5.0 [facility]) Baso # 0.0 10 0.0-0.2 [facility]) ID Date Data Source [id number] 04/06/2020 11:17:00 AM EST MED[facility] ([facility]) Name Value Range Interpretation Code Description Data Marisela rce(s) Supporting Document(s) Lactate [Mass/volume] in Serum or Plasma 2.2 mmol/L 0.4-2.0 Above upper panic limits [facility] ([facility]) BACK AND VERIFIED BY ID Date Data Source URINE CULTURE 03/21/2020 12:00:00 AM EST eCW1 ([facility]) Name Value Range Interpretation Code Description Data Marisela rce(s) Supporting Document(s) URINE CULTURE eCW1 ([facility]) ID Date Data Source UA URINALYSIS 03/21/2020 12:00:00 AM EST eCW1 ([facility]) Name Value Range Interpretation Code Description Data Marisela rce(s) Supporting Document(s) UA URINALYSIS eCW1 ([facility]) ID Date Data Source [id number] 01/26/2020 12:04:00 PM EDT MED[facility] ([facility]) Name Value Range Interpretation Code Description Data Marisela rce(s) Supporting Document(s) Urine Color Laboratory test result Abnormal (applies to non-numeric results) [facility] ([facility]) Urine Appearance Laboratory test result Abnormal (applies to non-numeric results) [facility] ([facility]) Specific gravity of Urine 1.020 1.005-1.030 OR DENT ([facility]) Urine PH 6.5 units 5.0-9.0 [facility]) Urine Blood Laboratory test result Abnormal (applies to non-numeric results) [facility] ([facility]) Urine Protein Laboratory test result 0-0 Abnormal (applies to non-numeric results) [facility] ([facility]) Urine Leukocytes Laboratory test result Abnormal (applies to non-numeric results) [facility] ([facility]) Urine Ketone Laboratory test result MEDE NT ([facility]) Urine Nitrite Laboratory test result Abnormal (applies to non-numeric results) [facility] ([facility]) Glucose [Presence] in Urine Laboratory test result [facility] ([facility]) Urine Urobilinogen Laboratory test result 0.2-1.0 Abnorm al (applies to non- numeric results) [facility] Bilirubin.total [Mass/volume] in Serum or Plasma Laboratory [facility]u [facility] ID Date Data Source [id number] 01/26/2020 12:04:00 PM EDT [facility] Name Value Range Interpretation Code Description Data Marisela rce(s) Supporting Document(s) Thyrotropin [Units/volume] in Serum or Plasma by Detec tion limit <= 0.05 mIU/L 7.15 uIU/mL 0.36-3.74 [facility] ID Date Data Source [id number] 01/26/2020 12:04:00 PM EDT [facility] Name Value Range Interpretation Code Description Data Marisela rce(s) Supporting Document(s) Erythrocytes [#/volume] in Blood by Automated count 4.43 x10*6/UL 4.2 0-6.30 [facility] ([facility] Leukocytes [#/volume] in Blood by Automated count 7.5 x10*3/UL 4.1-10 .9 [facility] ([facility] MCV 91.0 fL 80.0-97.0 MED[facility] ([facility]) Hemoglobin [Mass/volume] in Blood 13.8 g/dL 12.0-18.0 [facility] Hematocrit [Volume Fraction] of Blood by Automated count 40.4 % 3 7.0-51.0 [facility] MCH 31.2 pg 26.0-32.0 [facility] ([facility]) MCHC 34.2 g/dL 31.0-38.0 [facility] ([facility]) Erythrocyte distribution width [Ratio] by Automated count 13.1 % 11.6-13.7 [facility] Platelets [#/volume] in Blood by Automated count 190 x10*3/UL 140-440 [facility] Lymph % 17.3 % 10.0-58.5 [facility] ([facility]) MPV 8.5 FL 7.8-11.0 [facility]) Mid % 4.4 % 1.7-9.3 [facility]) Mid # 0.3 x10*3/UL 0.1-0.6 [facility] ([facility]) Neut % 78.3 % 37.0-92.0 [facility]) Lymph # 1.3 x10*3/UL 0.6-4.1 [facility] ([facility]) Neut # 5.9 x10*3/UL 2.0-7.8 [facility] ([facility]) ID Date Data Source [id number] 06/16/2019 11:52:00 AM EST [facility] ([facility]) Name Value Range Interpretation Code Description Data Marisela rce(s) Supporting Document(s) Thyroxine (T4) free [Mass/volume] in Serum or Plasma 1.14 ng/dL 0.76- 1.46 [facility] ([facility]) ID Date Data Source [id number] 06/16/2019 11:52:00 AM EST [facility] ([facility]) Name Value Range Interpretation Code Description Data Marisela rce(s) Supporting Document(s) Thyrotropin [Units/volume] in Serum or Plasma by Detec tion limit <= 0.05 mIU/L 6.30 uIU/mL 0.36-3.74 [facility] ([facility] ) ID Date Data Source [id number] 06/16/2019 11:52:00 AM EST [facility] ([facility]) Name Value Range Interpretation Code Description Data Marisela rce(s) Supporting Document(s) Triglyceride [Mass/volume] in Serum or Plasma 80 mg/dL 30-150 [facility] ([facility]) Cholesterol [Mass/volume] in Serum or Plasma 173 mg/dL 131-200 [facility] ([facility]) Cholesterol in HDL [Mass/volume] in Serum or Plasma 68 mg/dL 35-60 [facility] ([facility]) Cholesterol in LDL [Mass/volume] in Serum or Plasma by calcu lation 89 CALC 50-159 [facility] ([facility]) ID Date Data Source [id number] 06/16/2019 11:52:00 AM EST [facility] ([facility]) Name Value Range Interpretation Code Description Data Marisela rce(s) Supporting Document(s) Urea nitrogen [Mass/volume] in Serum or Plasma 8 mg/dL 7-18 [facility] ([facility]) Glucose [Mass/volume] in Serum or Plasma 95 mg/dL 74-99 [facility] ([facility]) 100-125 mg/dL PRE-DIABETES/FASTING >126 mg/dL DIABETES/FASTING Potassium [Moles/volume] in Serum or Plasma 4.0 meq/L 3.5-5.1 [facility] ([facility]) Creatinine 0.9 mg/dL 0.6-1.3 [facility] ([facility]) Sodium [Moles/volume] in Serum or Plasma 140 meq/L 136-145 [facility] ([facility]) Carbon dioxide, total [Moles/volume] in Serum or Plasma 31 meq/L 21 -32 [facility] ([facility]) Calcium [Mass/volume] in Serum or Plasma 8.8 mg/dL 8.5-10.1 [facility] ([facility]) Chloride [Moles/volume] in Serum or Plasma 103 meq/L 98-107 [facility] ([facility]) Glomerular filtration rate/1.73 sq M pre dicted among non-blacks [Volume Rate/Area] in Serum or Plasma by Creatinine-based formula (MDRD) Laboratory test result [facility] ([facility] Glomerular filtration rate/1.73 sq M pre dicted among blacks [Volume Rate/Area] in Serum or Plasma by Creatinine-based formula (MDRD) Laboratory test result [facility] ([facility] <content>CHRONIC KIDNEY DISEASE STAGING PER NKF</content>
<content></content>
<content>STAGE I & II GFR >= 60 NORMAL TO MILDLY DECREASED</content>
<content>STAGE III GFR 30-59 MODERATELY DECREASED</content>
<content>STAGE IV GFR 15-29 SEVERELY DECREASED</content>
<content>STAGE V GFR <15 VERY LITTLE GFR LEFT</content>
<content>ESRD GFR <15 ON AQUATIC CENTRE MANAGER</content>
<content></content> ID Date Data Source [id number] 06/16/2019 11:52:00 AM EST [facility] ([facility]) Name Value Range Interpretation Code Description Data Marisela rce(s) Supporting Document(s) Magnesium 1.9 mg/dL 1.8-2.4 [facility] ([facility] ID Date Data Source [id number] 06/16/2019 11:52:00 AM EST [facility] ([facility]) Name Value Range Interpretation Code Description Data Marisela rce(s) Supporting Document(s) Erythrocytes [#/volume] in Blood by Automated count 4.97 x10*6/UL 4.2 0-6.30 [facility] ([facility]) Leukocytes [#/volume] in Blood by Automated count 6.7 x10*3/UL 4.1-10 .9 [facility] ([facility]) Hemoglobin [Mass/volume] in Blood 15.0 g/dL 12.0-18.0 [facility] ([facility]) Hematocrit [Volume Fraction] of Blood by Automated count 45.7 % 3 7.0-51.0 [facility] ([facility]) MCH 30.2 pg 26.0-32.0 [facility] MCV 91.9 fL 80.0-97.0 [facility] Platelets [#/volume] in Blood by Automated count 165 x10*3/UL 140-440 [facility] ([facility]) Erythrocyte distribution width [Ratio] by Automated count 13.2 % 11.6-13.7 [facility] ([facility]) MCHC 32.9 g/dL 31.0-38.0 [facility] Lymph % 19.8 % 10.0-58.5 [facility] MPV 9.3 FL 7.8-11.0 [facility] Mid % 6.9 % 1.7-9.3 [facility] Lymph # 1.3 x10*3/UL 0.6-4.1 [facility] ([facility]) Mid # 0.5 x10*3/UL 0.1-0.6 [facility] ([facility]) Neut % 73.3 % 37.0-92.0 [facility]) Neut # 4.9 x10*3/UL 2.0-7.8 [facility] ([facility]) ID Date Data Source [id number] 06/10/2019 04:55:00 PM EST [facility] Hospital Name: JULIANO JENKINS : 1955 Age/Sex: 64M Ordering Provider: Luis Gold MD Med Rec #: [id number] Reg Status: [facility] Room #: Date of Service: 06/10/19 Report Number: [id number] cc:Luis Gold MD Send Report To: [id number] XRP/XR Hip Rt 1-2 view w AP [...] Date/Time: 06/10/19 1254 Transcribed Date/Time: 06/10/19 1655 Bank Teller: DENISE Name Value Range Interpretation Code Description Data Marisela rce(s) Supporting Document(s) Procedure Social History Code Duration Value Status Description Data Source(s ) Smoking 03/21/2020 12:00:00 AM EST Former Smoker completed Former Smoker eCW1 ([facility]) Smoking 03/21/2020 12:00:00 AM EST Former Smoker completed Former Smoker eCW1 ([facility]) Smoking 03/21/2020 12:00:00 AM EST Former Smoker completed Former Smoker eCW1 ([facility]) Smoking 03/21/2020 12:00:00 AM EST Former Smoker completed Former Smoker eCW1 ([facility]) Smoking 03/21/2020 12:00:00 AM EST Former Smoker completed Former Smoker eCW1 ([facility]) Vital Signs ID Date Data Source UNK Name Value Range Interpretation Code Description Data Source(s) Body height 65.25 [in_i] 65.25 [in_i] [facility] ([facility]) 5'5.25" Heart rate 52 /min 52 /min [facility]) Diastolic blood pressure 80 mm[Hg] 80 mm[Hg] [facility] ([facility]) LT Arm Systolic blood pressure 110 mm[Hg] 110 mm[Hg] M EDENT ([facility]) LT Arm Oxygen saturation in Arterial blood by Pulse oximetry 94 % 94 % [facility] ([facility]) RM Air Body height 65.25 [in_i] 65.25 [in_i] [facility] ([facility]) 5'5.25" Heart rate 97 /min 97 /min [facility] ([facility]) Diastolic blood pressure 70 mm[Hg] 70 mm[Hg] [facility] ([facility]) Systolic blood pressure 112 mm[Hg] 112 mm[Hg] M EDENT ([facility]) Diastolic blood pressure 72 mm[Hg] 72 mm[Hg] eCW1 ([facility]) Systolic blood pressure 122 mm[Hg] 122 mm[Hg] e CW1 ([facility]) Body temperature 97.0 [degF] 97.0 [degF] eCW1 ( [facility]) Respiratory rate 20 /min 20 /min eCW1 ([facility]) Heart rate 80 /min 80 /min eCW1 ([facility]) Body mass index (BMI) [Ratio] 69.96 kg/m2 69.96 kg/m2 eCW1 ([facility]) Body height 63 [in_i] 63 [in_i] eCW1 ([facility]) Body weight 395 [lb_av] 395 [lb_av] eCW1 ([facility]) Body mass index (BMI) [Ratio] 62.1 kg/m2 62.1 k g/m2 MED[facility] ([facility]) Body weight 376.00 [lb_av] 376.00 [lb_av] MEDEN T ([facility]) Body height 65.25 [in_i] 65.25 [in_i] [facility] ([facility]) 5'5.25" Body mass index (BMI) [Ratio] 66.2 kg/m2 66.2 k g/m2 [facility] ([facility]) Oxygen saturation in Arterial blood by Pulse oximetry 99 % 99 % [facility] Air Body weight 401.00 [lb_av] 401.00 [lb_av] MEDEN T ([facility]) Body height 65.25 [in_i] 65.25 [in_i] [facility] ([facility]) 5'5.25" Heart rate 87 /min 87 /min [facility] ([facility]) Diastolic blood pressure 70 mm[Hg] 70 mm[Hg] [facility] ([facility]) Systolic blood pressure 110 mm[Hg] 110 mm[Hg] [facility] ([facility]) Body weight 176.450 kg 176.450 kg [facility] ([facility], ) Body mass index (BMI) [Ratio] 64.7 kg/m2 64.7 k g/m2 [facility] ([facility], ) Body weight 389.00 [lb_av] 389.00 [lb_av] MEDEN T ([facility], ) Body height 65 [in_i] 65 [in_i] MEDENT ([facility], ) 5'5" Diastolic blood pressure 68 mm[Hg] 68 mm[Hg] [facility], ) Systolic blood pressure 114 mm[Hg] 114 mm[facility]Hg] [facility] Body weight 180.533 kg 180.533 kg [facility] ([facility]) Body mass index (BMI) [Ratio] 66.2 kg/m2 66.2 k g/m2 [facility] ([facility]) Body weight 398.00 [lb_av] 398.00 [lb_av] MEDEN T ([facility]) Body height 65 [in_i] 65 [in_i] [facility] ([facility]) 5'5" Diastolic blood pressure 80 mm[Hg] 80 mm[Hg] [facility] ([facility]) Systolic blood pressure 150 mm[Hg] 150 mm[Hg] [facility] ([facility]) Body mass index (BMI) [Ratio] 64.9 kg/m2 64.9 k g/m2 [facility] ([facility]) Oxygen saturation in Arterial blood by Pulse oximetry 94 % 94 % [facility] ([facility]) Air Body weight 393.00 [lb_av] 393.00 [lb_av] MEDEN T ([facility]) Body height 65.25 [in_i] 65.25 [in_i] [facility] ([facility]) 5'5.25" Heart rate 78 /min 78 /min [facility] ([facility]) Diastolic blood pressure 64 mm[Hg] 64 mm[Hg] [facility] ([facility]) Systolic blood pressure 120 mm[Hg] 120 mm[Hg] [facility] ([facility]) ID Date Data Source [id number] 06/23/2019 08:55:00 AM EST [facility] Hospital Name Value Range Interpretation Code Description Data Source(s) Weight (Calculated Kilograms) 146.96 146.96 [facility] Height (Calculated Centimeters) 165.1 165. 1 [facility] Body Mass Index (BMI) 53.8 53.8 [facility]
[2020-05-24] MEDS ORDERED: XARE20TA PO (05:10)
[2020-05-24] MEDS ORDERED: NYST1POW9 TOP (05:10)
[2020-05-24 05:24] LABS: BASO % 0.4 % (0.0-1.0); EOS # 0.1 10^3/uL (0.0-0.5); HEMATOCRIT 36.3 % (42.0-52.0); HEMOGLOBIN 10.8 g/dl (13.5-17.5); LYMPH % 8.8 % (24.0-44.0); MEAN CORPUSCULAR HEMOGLOBIN 29.4 pg (27.0-33.0); MEAN CORPUSCULAR HGB CONC 29.8 g/dl (32.0-36.5); MEAN CORPUSCULAR VOLUME 98.9 fl (80.0-96.0); MONO % 9.4 % (0.0-5.0); NEUTROPHILS # 8.6 10^3/uL (1.5-8.5); PLATELET COUNT, AUTOMATED 158 10^3/uL (150-450); RED BLOOD COUNT 3.67 10^6/uL (4.30-6.10); WHITE BLOOD COUNT 10.8 10^3/uL (4.0-10.0)
[2020-05-24 05:41] LABS: INR 1.63; PROTHROMBIN TIME 19.7 SECONDS (12.5-14.3)
[2020-05-24 05:42] LABS: PARTIAL THROMBOPLASTIN TIME 45.1 SECONDS (24.2-38.5)
[2020-05-24 05:45] LABS: RSV AMPLIFICATION NEGATIVE (NEGATIVE)
[2020-05-24 05:49] LABS: BLOOD UREA NITROGEN 9 MG/DL (7-18); CALCIUM LEVEL 7.7 MG/DL (8.8-10.2); CARBON DIOXIDE LEVEL 28 MEQ/L (21-32); CHLORIDE LEVEL 106 MEQ/L (98-107); CK-MB VALUE MASS 2.5 NG/ML (<3.6); CPK CREATINE PHOSPHOKINASE 123 U/L (39-308); CREATININE FOR GFR 0.82 MG/DL (0.70-1.30); GLOMERULAR FILTRATION RATE > 60.0 (>49); GLUCOSE, FASTING 104 MG/DL (70-100); MB/CK RELATIVE INDEX 2.03 (< OR =4); SODIUM LEVEL 139 MEQ/L (136-145); TROPONIN I < 0.02 NG/ML (< 0.10)
--- NOTE | 2020-05-24 07:12 | REPVR ---
PROCEDURE INFORMATION: Exam: CT Abdomen And Pelvis Without Contrast Exam date and time: 05/24/2020 5:58 AM Age: 64 years old Clinical indication: Other: Hematuria; Abdominal pain; Generalized; Additional info: Weakness, gross hematuria TECHNIQUE: Imaging protocol: Computed tomography of the abdomen and pelvis without contrast. Radiation optimization: All CT scans at this facility use at least one of these dose optimization techniques: automated exposure control; mA and/or kV adjustment per patient size (includes targeted exams where dose is matched to clinical indication); or iterative reconstruction. COMPARISON: CT ABD/PEL W/IV CONTRAST ONLY 04/06/2020 1:52 PM FINDINGS: Limitations: There is artifact in the pelvis related to the hip prosthesis. There is motion artifact. Examination is limited by body habitus. Lungs: There is patchy consolidation in the visualized lung bases, most prominent in the right middle lobe and right lower lobe, which was not seen on the prior exam. A small amount of compressive atelectasis is again present. Pleural space: There are small, bilateral pleural effusions, slightly smaller than on the prior exam. Heart: There is a trace pericardial effusion, decreased from the prior exam. Liver: The unenhanced liver appears unremarkable. Gallbladder and bile ducts: The gallbladder is not identified and appears to been surgically resected. No ductal dilation. Pancreas: There is diffuse, benign fatty infiltration of the pancreas. Spleen: The unenhanced spleen appears unremarkable. Adrenal glands: The adrenal glands are normal. Kidneys and ureters: Staghorn calculus and additional nonobstructing stones at the right kidney are again seen. There is fullness of the renal pelvis and calices in the right kidney but the right ureter is nondilated. There is minimal, symmetric bilateral perinephric stranding. There is no hydronephrosis at the left kidney. The nondilated distal ureters are difficult to trace, due to the artifact in the pelvis. Stomach and bowel: A large midline ventral hernia is again seen, containing multiple loops of small bowel without dilation or thickening of the bowel. Moderate diverticulosis is present in the sigmoid and descending colon. There is no dilation or thickening of the colon. Appendix: There is a short, non thickened appendix or appendiceal stump. Intraperitoneal space: There is no evidence of free intraperitoneal or pelvic fluid. There is no free intraperitoneal air. Vasculature: The aorta demonstrates mild atherosclerotic calcification. No aortic aneurysm. Lymph nodes: There are multiple enlarged bilateral inguinal lymph nodes but they appear to have fatty kirstin, likely benign. Urinary bladder: The bladder appears grossly unremarkable but assessment is limited by artifact in the pelvis. Reproductive: The prostate appears grossly unremarkable, but assessment is limited by artifact in the pelvis. Bones/joints: There is a left hip prosthesis. Advanced degenerative changes are again noted in the right hip.There is facet arthropathy in the lumbar spine. Mild degenerative endplate changes are noted in the visualized spine. There is a chronic deformity of the left superior pubic ramus which is probably posttraumatic. Soft tissues: There is fairly diffuse nonspecific subcutaneous tissue edema, increased from the prior exam. Calcification associated with the left psoas muscle is again noted, probably related to a previous injury or sequela of prior hematoma. IMPRESSION: 1. Right sided nephrolithiasis and staghorn calculi again seen. Fullness of the right renal pelvis and calices but no ureteral stones or hydroureter identified. 2. Large midline ventral hernia containing multiple loops of small bowel without signs of obstruction or strangulation, similar to the prior exam. 3. Small bilateral pleural effusions persist. There is new patchy consolidation in the lung bases, especially the right middle lobe and right lower lobe, probably due to pneumonia, but not fully assessed on this exam. 4. Fairly diffuse, nonspecific subcutaneous tissue edema, increased from the prior exam. Electronically signed by: Annie Nichols On 05/24/2020 07:12:20 AM
[2020-05-24] MEDS ORDERED: NYSTATIN 100,000 UNITS/GM TOPICAL PWD 15 GM TOP PRN (07:45)
--- OUTSIDE RECORDS SUMMARY | 2020-05-24 08:14 | CCD ---
Author Author [facility] Organization [facility] Address Unknown Phone Unavailable Care Team Providers Care Front Attendant Name Role Phone Harley Gurrola MD Unavailable Unavailable Harley Gurrola MD Unavailable Unavailable Harley Gurrola MD Unavailable Unavailable Harley Gurrola MD Unavailable Unavailable Harley Gurrola MD Unavailable Unavailable Harley Gurrola MD Unavailable Unavailable Harley Gurrola MD Unavailable Unavailable Harley Gurrola MD Unavailable Unavailable IzabelaHarley MD Unavailable Unavailable Story CityHarley MD Unavailable Unavailable [place] MD Unavailable Unavailable IzabelaHarley MD Unavailable Unavailable [place] MD Unavailable Unavailable [place] MD Unavailable Unavailable IzabelaHarley MD Unavailable Unavailable IzabelaHarley MD Unavailable Unavailable [place] MD Unavailable Unavailable [place] MD Unavailable Unavailable IzabelaHarley MD Unavailable Unavailable IzabelaHarley MD Unavailable Unavailable IzabelaHarley MD Unavailable Unavailable IzabelaHarley MD Unavailable Unavailable IzabelaHarley MD Unavailable Unavailable [place] MD Unavailable Unavailable IzabelaHarley MD Unavailable Unavailable [place] MD Unavailable Unavailable IzabelaHarley MD Unavailable Unavailable [place] MD Unavailable Unavailable IzabelaHarley MD Unavailable Unavailable IzabelaHarley MD Unavailable Unavailable IzabelaHarley MD Unavailable Unavailable [place] MD Unavailable Unavailable IzabelaHarley MD Unavailable Unavailable [place] MD Unavailable Unavailable [place] MD Unavailable Unavailable IzabelaHarley MD Unavailable Unavailable IzabelaHarley MD Unavailable Unavailable IzabelaHarley MD Unavailable Unavailable [place] MD Unavailable Unavailable IzabelaHarley MD Unavailable Unavailable IzabelaHarley MD Unavailable Unavailable IzabelaHarley MD Unavailable Unavailable [place] MD Unavailable Unavailable IzabelaHarley tate MD Unavailable Unavailable [place] MD Unavailable Unavailable [place] MD Unavailable Unavailable IzabelaHarley MD Unavailable Unavailable IzabelaHarley MD Unavailable Unavailable [place] MD Unavailable Unavailable [place] MD Unavailable Unavailable IzabelaHarley tate MD Unavailable Unavailable IzabelaHarley MD Unavailable Unavailable IzabelaHarley MD Unavailable Unavailable IzabelaHarley MD Unavailable Unavailable IzabelaHarley MD Unavailable Unavailable [place] MD Unavailable Unavailable [place] MD Unavailable Unavailable IzabelaHarley MD Unavailable Unavailable IzabelaHarley MD Unavailable Unavailable [place] MD Unavailable Unavailable IzabelaHarley MD Unavailable Unavailable [place] MD Unavailable Unavailable IzabelaHarley MD Unavailable Unavailable [place] MD Unavailable Unavailable IzabelaHarley MD Unavailable Unavailable IzabelaHarley MD Unavailable Unavailable IzabelaHarley MD Unavailable Unavailable IzabelaHarley MD Unavailable Unavailable [place] MD Unavailable Unavailable IzabelaHarley MD Unavailable Unavailable [place] MD Unavailable Unavailable IzabelaHarley MD Unavailable Unavailable IzabelaHarley MD Unavailable Unavailable [place] MD Unavailable Unavailable IzabelaHarley MD Unavailable Unavailable IzabelaHarley MD Unavailable Unavailable IzabelaHarley MD Unavailable Unavailable [place] MD Unavailable Unavailable [place] MD Unavailable Unavailable Izabela F Lanre FIERRO Unavailable Unavailable [place] MD Unavailable Unavailable [place] F Lanre FIERRO Unavailable Unavailable IzabelaHarley MD Unavailable Unavailable IzabelaHarley MD Unavailable Unavailable [place] MD Unavailable Unavailable IzabelaHarley MD Unavailable Unavailable [...] Unavailable Unavailable Lucila Leach MD Unavailable Unavailable Luicla Leach MD Unavailable Unavailable Lucila Leach MD [...] Unavailable Nataliia Segura MD Unavailable Unavailable Nataliia Sgeura MD Unavailable Unavailable Nataliia Segura MD Unavailable [...] Unavailable Nataliia Segura MD Unavailable Unavailable Nataliia Seguar MD Unavailable Unavailable Nataliia Segura MD Unavailable Unavailable Nataliia Segura MD Unavailable Unavailable Nataliia Segura MD Unavailable Unavailable Nataliia Segura MD Unavailable Unavailable Nataliia Segura MD Unavailable Unavailable Nataliia Segura MD Unavailable Unavailable Nataliia Segura MD Unavailable Unavailable Nataliia Segura MD Unavailable Unavailable Nataliia Segura MD Unavailable Unavailable Nataliia Segura MD Unavailable Unavailable Nataliia Segura MD Unavailable Unavailable Brock, Jeannette CUSTOMER COMPLAINT CLERK Unavailable Unavailable Brock, Jeannette CUSTOMER COMPLAINT CLERK Unavailable Unavailable Brock, Jeannette CUSTOMER COMPLAINT CLERK Unavailable Unavailable Brock, Jeannette CUSTOMER COMPLAINT CLERK Unavailable Unavailable Brock, Jeannette CUSTOMER COMPLAINT CLERK Unavailable Unavailable Brock, Jeannette CUSTOMER COMPLAINT CLERK Unavailable Unavailable Brock, Jeannette CUSTOMER COMPLAINT CLERK Unavailable Unavailable Brock, Jeannette CUSTOMER COMPLAINT CLERK Unavailable Unavailable Brock, Jeannette CUSTOMER COMPLAINT CLERK Unavailable Unavailable Brock, Jeannette CUSTOMER COMPLAINT CLERK Unavailable Unavailable Brock, Jeannette CUSTOMER COMPLAINT CLERK Unavailable Unavailable Brock, Jeannette CUSTOMER COMPLAINT CLERK Unavailable Unavailable Brock, Jeannette CUSTOMER COMPLAINT CLERK Unavailable Unavailable Brock, Jeannette CUSTOMER COMPLAINT CLERK Unavailable Unavailable Brock, Jeannette CUSTOMER COMPLAINT CLERK Unavailable Unavailable Brock, Jeannette CUSTOMER COMPLAINT CLERK Unavailable Unavailable Brock, Jeannette CUSTOMER COMPLAINT CLERK Unavailable Unavailable Brock, Jeannette CUSTOMER COMPLAINT CLERK Unavailable Unavailable Brock, Jeannette CUSTOMER COMPLAINT CLERK Unavailable Unavailable Brock, Jeannette CUSTOMER COMPLAINT CLERK Unavailable Unavailable Brock, Jeannette CUSTOMER COMPLAINT CLERK Unavailable Unavailable Brock, Jeannette CUSTOMER COMPLAINT CLERK Unavailable Unavailable Brock, Jeannette CUSTOMER COMPLAINT CLERK Unavailable Unavailable Brock, Jeannette CUSTOMER COMPLAINT CLERK Unavailable Unavailable Brock, Jeannette CUSTOMER COMPLAINT CLERK Unavailable Unavailable Brock, Jeannette CUSTOMER COMPLAINT CLERK Unavailable Unavailable PICKERAL JR, J MARIAH PA-C [...] J MARIAH PA-C Unavailable Unavailable Ancelmo, Tiffany CUSTOMER COMPLAINT CLERK Unavailable Unavailable Ancelmo, Tiffany CUSTOMER COMPLAINT CLERK Unavailable Unavailable Ancemlo, Tiffany CUSTOMER COMPLAINT CLERK Unavailable Unavailable Ancelmo, Tiffany CUSTOMER COMPLAINT CLERK Unavailable Unavailable Ancelmo, Tiffany CUSTOMER COMPLAINT CLERK Unavailable Unavailable Ancelmo, Tiffany CUSTOMER COMPLAINT CLERK Unavailable Unavailable Ancelmo, Tiffany CUSTOMER COMPLAINT CLERK Unavailable Unavailable Ancelmo, Tiffany CUSTOMER COMPLAINT CLERK Unavailable Unavailable Ancelmo, Tiffany CUSTOMER COMPLAINT CLERK Unavailable Unavailable Ancelmo, Tiffany CUSTOMER COMPLAINT CLERK Unavailable Unavailable Ancelmo, Tiffany CUSTOMER COMPLAINT CLERK Unavailable Unavailable Ancelmo, Tiffany CUSTOMER COMPLAINT CLERK Unavailable Unavailable Ancelmo, Tiffany CUSTOMER COMPLAINT CLERK Unavailable Unavailable Ancelmo, Tiffany CUSTOMER COMPLAINT CLERK Unavailable Unavailable Ancelmo, Tiffany CUSTOMER COMPLAINT CLERK Unavailable Unavailable Ancelmo, Tiffany CUSTOMER COMPLAINT CLERK Unavailable Unavailable Ancelmo, Tiffany CUSTOMER COMPLAINT CLERK Unavailable Unavailable Ancelmo, Tiffany CUSTOMER COMPLAINT CLERK Unavailable Unavailable Ancelmo, Tiffany CUSTOMER COMPLAINT CLERK Unavailable Unavailable Ancelmo, Tiffany CUSTOMER COMPLAINT CLERK Unavailable Unavailable Ancelmo, Tiffany CUSTOMER COMPLAINT CLERK Unavailable Unavailable Ancelmo, Tiffany CUSTOMER COMPLAINT CLERK Unavailable Unavailable Ancelmo, Tiffany CUSTOMER COMPLAINT CLERK Unavailable Unavailable Ancelmo, Tiffany CUSTOMER COMPLAINT CLERK Unavailable Unavailable Ancelmo, Tiffany CUSTOMER COMPLAINT CLERK Unavailable Unavailable Ancelmo, Tiffany CUSTOMER COMPLAINT CLERK Unavailable Unavailable Ancelmo, Tiffany CUSTOMER COMPLAINT CLERK Unavailable Unavailable Ancelmo, Tiffany CUSTOMER COMPLAINT CLERK Unavailable Unavailable Ancelmo, Tiffany CUSTOMER COMPLAINT CLERK Unavailable Unavailable Ancelmo, Tiffany CUSTOMER COMPLAINT CLERK Unavailable Unavailable Ancelmo, Tiffany CUSTOMER COMPLAINT CLERK Unavailable Unavailable Ancelmo, Tiffany CUSTOMER COMPLAINT CLERK Unavailable Unavailable Ancelmo, Tiffany CUSTOMER COMPLAINT CLERK Unavailable Unavailable Ancelmo, Tiffany CUSTOMER COMPLAINT CLERK Unavailable Unavailable Ancelmo, Tiffany CUSTOMER COMPLAINT CLERK Unavailable Unavailable Ancelmo, Tiffany CUSTOMER COMPLAINT CLERK Unavailable Unavailable Ancelmo, Tiffany CUSTOMER COMPLAINT CLERK Unavailable Unavailable Ancelmo, Tiffany CUSTOMER COMPLAINT CLERK Unavailable Unavailable Ancelmo, Tiffany CUSTOMER COMPLAINT CLERK Unavailable Unavailable Ancelmo, Tiffany CUSTOMER COMPLAINT CLERK Unavailable Unavailable Ancelmo, Tiffany CUSTOMER COMPLAINT CLERK Unavailable Unavailable Ancelmo, Tiffany CUSTOMER COMPLAINT CLERK Unavailable Unavailable Ancelmo, Tiffany CUSTOMER COMPLAINT CLERK Unavailable Unavailable Ancelmo, Tiffany CUSTOMER COMPLAINT CLERK Unavailable Unavailable Ancelmo, Tiffany CUSTOMER COMPLAINT CLERK Unavailable Unavailable Ancelmo, Tiffany CUSTOMER COMPLAINT CLERK Unavailable Unavailable Ancelmo, Tiffany CUSTOMER COMPLAINT CLERK Unavailable Unavailable Ancelmo, Tiffany CUSTOMER COMPLAINT CLERK Unavailable Unavailable Ancelmo, Tiffany CUSTOMER COMPLAINT CLERK Unavailable Unavailable Ancelmo, Tiffany CUSTOMER COMPLAINT CLERK Unavailable Unavailable Ancelmo, Tiffany CUSTOMER COMPLAINT CLERK Unavailable Unavailable Ancelmo, Tiffany CUSTOMER COMPLAINT CLERK Unavailable Unavailable Ancelmo, Tiffany CUSTOMER COMPLAINT CLERK Unavailable Unavailable Gasconade, V EAGLE PA-C Unavailable Unavailable Gasconade, V EAGLE PA-C Unavailable Unavailable Gasconade, V EAGLE PA-C Unavailable Unavailable Gascon[place], V EAGLE PA-C Unavailable Unavailable [place], V EAGLE PA-C Unavailable Unavailable Leroy, V [...] is protected by Article 27-F of the [facility] Public Health law. If you continue you may have access to information: Regarding HIV / AIDS; Provided by facilities licensed or operated by the [facility] Office of Mental Health; or Provided by the [facility] Office for People With Developmental Disabilities. If such information is present, then the following [facility] mandated warning applies: This information has [...] law may result in a fine or long-term sentence or both. A general authorization for the release of medical or other information is NOT sufficient authorization for further disc losure. Family History Family Member Name Family Member Gender Family Member Status Date o f Status Description Data Source(s) Unknown Male Problem [facility] ([facility], ) Encounters Encounter Providers Location Date Indications Data Source(s ) Outpatient Attender: EAGLE TURNERCReferrer: Arturo SOLER 05/23/2020 12:00:00 AM EST [facility] Outpatient Attender: Jeannette Stein 01:40:00 PM EST MEDENT ([facility] ) Unknown [address] [id number] 04/24/2020 12:00:00 AM EST eCW1 ([facility]) Outpatient Attender: MARIAH Stein 1 05/30/2019 01:00:00 PM EST MED[facility] ([facility] ) Unknown [address] [facility] [id number] 03/28/2020 12:00:00 AM EST eCW1 ([facility]) Unknown [address] [facility] [place] [id number] 03/23/2020 12:00:00 AM EST eCW1 ([facility]) Unknown [address] [address] [address] 03/23/2020 12:00:00 AM EST eCW1 ([facility]) Outpatient [address] [facility] [id number] 03/21/2020 12:00:00 AM EST eCW1 ([facility]) Outpatient Attender: MARIAH Stein 1 02:00:00 PM EDT MED[facility] ([facility] ) Outpatient Attender: Lucila Leach MD SJCassandra.[email or web address].VIC 1011/2019 12:00:00 AM EDT - 02/15/2020 01:50:37 PM EDT [facility] Outpatient Attender: MARIAH Stein 0 01/26/2020 11:20:00 AM EDT MED[facility] ([facility] ) Outpatient Attender: Tiffany Stein 0 10/20/2019 02:00:00 PM EDT [facility] ([facility] ) Outpatient 07/12/2019 03:15:00 PM EST [facility] Outpatient Attender: Gia Stein 10:00:00 AM EST MED[facility] ([facility] ) Outpatient Attender: Luis Gold MD CPSCAORT-CPSCAORT 11:20:00 AM EST - 06/10/2019 11:21:00 AM EST [facility] al Patient discharged. Immunizations Vaccine Date Status Description Data Source(s) Influenza, injectable, MDCK, preservative free, mariposa valent 03/30/2020 01:20:00 PM EST completed [facility] ([facility]) Medications Medication Brand Name Start Date Product Form Dose Route Admi nistrative Instructions Pharmacy Instructions Status Indications Reaction Description Data Source(s) Administration Of Flu Vaccine 03/30/2020 12:00:00 AM EST completed [facility] ([facility]) Medication administered onsite Cephalexin 500 MG Oral Capsule Cephalexin 03/30/2020 12:00:00 AM EST ORAL completed [facility] ([facility]) Zolpidem tartrate 10 MG Oral Tablet Zolpidem Tartrate 03/11 12:00:00 AM EST ORAL active [facility] ([facility]) 24 HR metoprolol succinate 50 MG Extended Release Oral Tablet [Toprol] Toprol XL 02/27/2020 12:00:00 AM EDT ORAL active MED[facility] ([facility]) Sertraline 100 MG Oral Tablet Sertraline HCL 02/27/2020 12:00:00 AM E DT ORAL active [facility] ([facility]) NITROFURANTOIN, MACROCRYSTALS 100 MG Oral Capsule Nitrofuran toin Macrocrystal 01/26/2020 12:00:00 AM EDT ORAL completed [facility] ([facility]) 50 mg 06/17/2019 12:00:00 AM EST tablet 30 TAKE 1/2 TABLET BY MOUTH EVERY MORNING FOR 4 DAYS THEN TAKE ONE TABLET BY MOUTH EVERY DAY TAKE 1/2 TABLET BY MOUTH EVERY MORNING FOR 4 DAYS THEN TAKE ONE TABLET BY MOUTH EVERY DAY SOLD: 06/19/2019 [facility] Sertraline 50 MG Oral Tablet Sertraline HCL 06/16/2019 12:00:00 AM EST ORAL active MED[facility] ([facility]) 5 mg 06/08/2019 12:00:00 AM EST [...] type / Coverage type Policy ID Covered alliance party ID Covered alliance party's relationship to mitchell Policy Mitchell Plan Information MEDICARE [id number] SP [id number] [facility] MEDIC[facility] [id number] Cara 18 [id number] [facility] [id number] SP [id number] MEDICARE [id number] A MEDICARE [id number] SP [id number] MEDICARE [id number] SP [id number] A WELLCARE O [id number] S [id number] WELLCARE [id number] SP [id number] WELLCARE [id number] Other [id number] Wellcare Health Plans Sirigen Commercial [id number] Self [id number] Wellcare/Todays Optmcr Commercial [id number] Self [id number] Wellcare Health Plans Sirigen Commercial [id number] Self [id number] MEDICARE A [id number] Self [id number] A WELLCARE [id number] SP [id number] Wellcare/Todays Optmcr Commercial [id number] Self [id number] Wellcare Today's Options Commercial [id number] Self [id number] TODAYS OPTIONS [id number] SP [id number] Burmese Local Magnet [id number] Self [id number] Burmese Local Magnet [id number] Self [id number] Burmese Local Magnet [id number] Self [id number] TODAYS OPTIONS [id number] SP [id number] [employer] [id number] Self [id number] Todays Option Commercial [id number] Self [id number] Medicare Part A [place] Primary [id number] Self [id number] MEDICARE PART A-O/P [id number] 18 [id number] [place] [id number] 18 [id number] MEDICARE PART A [facility] [id number] 18 [id number] TODAYS OPTION -RECURRING [id number] CIGNA HEALTHCARE -RECURRING [id number] 18 [id number] CIGNA HEALTHCARE -RECURRING [id number] 18 [id number] TODAYS OPTION -RECURRING [id number] 18 [id number] MEDICARE -O/P [id number] 18 [id number] MEDICARE [id number] SP [id number] A MEDICARE C [id number] S [id number] A MEDICARE PART A-CL[facility] [id number] 18 [id number] MEDICARE OUTPATIENT M [id number] S [id number] WELLCARE HLTH PLANS O [id number] S [id number] UNAVAILABLE UNAVAILA BLE Problems, Conditions, and Diagnoses Code Display Name Description Problem Type Effective Dates Data Source(s) 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 Problem 03/21/2020 12:00:00 AM EST eCW1 ([facility]) I48.19 Other persistent atrial fibrillation Oth er persistent atrial fibrillation Diagnosis 02/15/2020 01:01:44 PM EDT [facility] E66.01 Morbid (severe) obesity due to excess ca lories MORBID (SEVERE) OBESITY DUE TO EXCESS CALORIES Diagnosis 06/10/2019 11:20:00 AM [facility] Z96.642 Presence of left artificial hip joint NE ESENCE OF LEFT ARTIFICIAL HIP JOINT Diagnosis 06/10/2019 11:20:00 AM [facility] M16.11 Unilateral primary osteoarthritis, right hip UNILATERAL PRIMARY OSTEOARTHRITIS, RIGHT HIP Diagnosis 06/10/2019 11:20:00 AM [facility] M25.551 Pain in right hip PAIN IN RIGHT HIP Diagnosis 06/10 11:20:00 AM [facility] Surgeries/Procedures Procedure Description Date Indications Data Source(s) ECG ROUTINE ECG W/LEAST 12 LDS W/I&R 01/26/2020 12:00: 00 AM EDT [facility] ([facility]) [facility] outpatient clinic visit for assessment and ma nagement of a patient Hospital Outpatient Clinic Visit 06/10/2019 12:00:00 AM [facility] [address] X-RAY EXAM HIP UNI 2-3 VIEWS 06/10/2019 12:00:00 AM [facility] Results ID Date Data Source [id number] 04/06/2020 02:21:00 PM [facility] ([facility]) Name Value Range Interpretation Code Description Data Marisela rce(s) Supporting Document(s) Laboratory test finding (navigational concept) Laboratory test result [facility] ([facility]) A false negative result may occur [...] pathogens. DISCLAIMER: Testing was performed using the [employer] SARS-CoV-2 test. This test was developed and its performance characteristics determined by [employer]. This test has not been FDA cleared [...] or revoked sooner. ID Date Data Source [id number] 04/06/2020 12:25:00 PM EST [facility] ([facility]) Name Value Range Interpretation Code Description Data Amrisela rce(s) Supporting Document(s) Appearance, Urine RFX Laboratory test result [facility] PH,Urine RFX 6.0 units 5.0-9.0 [facility] Specific [place] Ur Auto RFX 1.013 1.002-1.035 [facility] Color, Urine RFX Laboratory test result [facility]) Ketone, Urine Auto RFX Laboratory test result [facility] ([facility]) Protein, Urine Auto RFX Laboratory test result [facility] ([facility]) Glucose, Urine (Ua) Auto RFX Laboratory test result [facility]) Nitrite, Urine Auto RFX Laboratory test result [facility] ([facility]) Bilirubin, Urine Auto RFX Laboratory test result [facility] ([facility]) Urobilinogen, Urine Auto RFX 4.0 mg/dL 0.0-2.0 [facility] ([facility] Blood, Urine Blood RFX Laboratory test result [facility] ([facility]) Leukocyte Esterase Ur Auto RFX Laboratory test result [facility] ([facility]) WBC, Urine Auto RFX 63 /HPF 0-3 [facility] ([facility] Squam Epithelial Cell Ur Aurfx 2 /HPF 0-6 [facility] ([facility] Bacteria, Urine Auto RFX Laboratory test result [facility] ([facility]) RBC, Urine Auto RFX Laboratory test result 0-3 [facility] ([facility]) Hyaline Cast, Urine Auto RFX 0 /LPF 0-1 M EDENT ([facility]) Mucus, Urine RFX Laboratory test result [facility] ID Date Data Source [id number] 04/06/2020 11:44:00 AM EST [facility] ([facility]) Name Value Range Interpretation Code Description Data Marisela rce(s) Supporting Document(s) Blood Type Laboratory test result [facility] ([facility] AB Screen (Indirect Venita)Vis Laboratory test result [facility] ([facility] ID Date Data Source [id number] 04/06/2020 11:44:00 AM EST [facility] ([facility]) Name Value Range Interpretation Code Description Data Marisela rce(s) Supporting Document(s) Lipoprotein lipase [Enzymatic activity/volume] in Serum or Plasm a 45 U/L 73-393 [facility] ([facility]) <content>note:<nlbl:demographic_changed> </content>
<content></content> Amylase [Enzymatic activity/volume] in Serum or Plasma 20 U/L 25- 115 [facility] ([facility]) <content>note:<nlbl:demographic_changed> </content>
<content></content> ID Date Data Source [id number] 04/06/2020 11:44:00 AM EST [facility] ([facility]) Name Value Range Interpretation Code Description Data Marisela rce(s) Supporting Document(s) Glucose, Fasting 115 mg/dL 70-100 [facility] ([facility]) Glomerular Filtration Rate [facility]) <content>Units are mL/min/1.73 m2</content>
<content></content>
<content>Chronic Kidney Disease Staging per NKF:</content>
<content></content>
<content>Stage I & II GFR >=60 Normal to Mildly Decreased</content>
<content>Stage III GFR 30-59 Moderately Decreased</content>
<content>Stage IV GFR 15-29 Severely Decreased</content>
<content>Stage V GFR <15 Very Little GFR Left</content>
<content>ESRD GFR <15 on DUST COLLECTOR TREATER</content>
<content></content> Blood Urea Nitrogen 10 mg/dL 7-18 [facility] ([facility]) Creatinine For GFR 0.96 mg/dL 0.70-1.30 [facility] ([facility]) Potassium Serum 3.8 meq/L 3.5-5.1 [facility] ([facility]) Carbon Dioxide Level 28 meq/L 21-32 [facility] ([facility]) Chloride Level 104 meq/L 98-107 [facility] ([facility]) Sodium Level 138 meq/L 136-145 [facility] ([facility]) Calcium Level 8.1 mg/dL 8.8-10.2 [facility] ([facility]) Anion Gap 6 meq/L 8-16 [facility] ID Date Data Source [id number] 04/06/2020 11:44:00 AM EST [facility] ([facility]) Name Value Range Interpretation Code Description Data Marisela rce(s) Supporting Document(s) Ast/Sgot 24 U/L 7-37 [facility]) Alt/SGPT 13 U/L 12-78 [facility] ([facility]) Alkaline Phosphatase 133 U/L 45-117 [facility] ([facility]) Bilirubin,Direct 0.4 mg/dL 0.0-0.2 [facility] ([facility]) Bilirubin,Total 0.9 mg/dL 0.2-1.0 [facility] ([facility]) Albumin/Globulin Ratio 0.6 [facility] ([facility]) Total Protein 7.7 GM/DL 6.4-8.2 [facility] ([facility]) Albumin 2.9 GM/DL 3.2-5.2 [facility]) ID Date Data Source [id number] 04/06/2020 11:44:00 AM EST [facility] ([facility]) Name Value Range Interpretation Code Description Data Marisela rce(s) Supporting Document(s) MB/CK Relative Index 2.78 [facility] ([facility]) <content>DIAGNOSIS CRITERIA</content>
<content>MMB ng/ml Relative Index (RI)</content>
<content>NON-AMI < or = 5 N/A</content>
<content>DAWSON ZONE > 5 < or = 4</content>
<content>AMI > 5 > 4</content>
<content></content> CK-MB Value Mass Laboratory test result [facility] ([facility]) CPK Creatine Phosphokinase 36 U/L 39-308 [facility] Troponin I Laboratory test result [facility] ([facility]) <content>Troponin I Reference Interval f or Siemens Weston LOCI:</content>
<content></content>
<content>99th Percentile= 0.00-0.045 ng/ml</content>
<content></content>
<content>Risk Stratification:</content>
<content><= 0.10 ng/ml Decreased Risk for Adverse Clinical</content>
<content>Events.</content>
<content>0.10-1.50 ng/ml Increased Risk for Adverse Clinical</content>
<content>Events. Evaluation of additional</content>
<content>criterion and/or repeat testing in 2-6</content>
<content>hours is suggested to rule out myocardial</content>
<content>damage.</content>
<content>>= 1.50 ng/ml Indicative of Myocardial Injury.</content>
<content></content> ID Date Data Source [id number] 04/06/2020 11:44:00 AM EST [facility] ([facility]) Name Value Range Interpretation Code Description Data Marisela rce(s) Supporting Document(s) White Blood Count 8.7 10 4.0-10.0 [facility] ([facility]) Mean Corpuscular Volume 96.4 fl 80.0-96.0 [facility] ([facility]) Hematocrit 37.8 % 42.0-52.0 [facility] ([facility]) Hemoglobin 11.6 g/dL 13.5-17.5 [facility]) Red Blood Count 3.92 10 4.30-6.10 [facility] ([facility]) Red Cell Distribution Width 15.4 % 11.5-14.5 [facility] ([facility]) Mean Corpuscular HGB Conc 30.7 g/dL 32.0-36.5 [facility] ([facility]) Mean Corpuscular Hemoglobin 29.6 pg 27.0-33.0 [facility] ([facility]) Lymph % 5.9 % 24.0-44.0 [facility]) Platelet Count, Automated 144 10 150-450 [facility] ([facility]) Neutrophils % 86.7 % 36.0-66.0 [facility] ([facility]) [place] % 6.3 % 0.0-5.0 [facility]) Eos % 0.2 % 0.0-3.0 [facility]) Baso % 0.2 % 0.0-1.0 [facility]) Immature Granulocyte % 0.7 % 0-3.0 [facility] ([facility]) Neutrophils # 7.6 10 1.5-8.5 [facility] ([facility]) Nucleated Red Blood Cell % 0.0 % 0-0 [facility] ([facility]) Eos # 0.0 10 0.0-0.5 [facility]) [place] # 0.6 10 0.0-0.8 [facility]) Lymph # 0.5 10 1.5-5.0 [facility]) Baso # 0.0 10 0.0-0.2 [facility]) ID Date Data Source [id number] 04/06/2020 11:17:00 AM EST [facility] ([facility]) Name Value Range Interpretation Code Description Data Marisela rce(s) Supporting Document(s) Lactate [Mass/volume] in Serum or Plasma 2.2 mmol/L 0.4-2.0 Above upper panic limits [facility] ([facility]) BACK AND VERIFIED BY ID Date Data Source URINE CULTURE 03/21/2020 12:00:00 AM EST eCW1 ([facility]) Name Value Range Interpretation Code Description Data Marisela rce(s) Supporting Document(s) URINE CULTURE eCW1 ([facility]) ID Date Data Source UA URINALYSIS 03/21/2020 12:00:00 AM EST eCW1 ([facility]) Name Value Range Interpretation Code Description Data Marisela rce(s) Supporting Document(s) UA URINALYSIS eCW1 ([facility]) ID Date Data Source [id number] 01/26/2020 12:04:00 PM EDT [facility] ([facility]) Name Value Range Interpretation Code Description Data Marisela rce(s) Supporting Document(s) Urine Color Laboratory test result Abnormal (applies to non-numeric results) [facility] ([facility]) Urine Appearance Laboratory test result Abnormal (applies to non-numeric results) [facility] ([facility]) Specific gravity of Urine 1.020 1.005-1.030 DC [facility] ([facility]) Urine PH 6.5 units 5.0-9.0 [facility]) Urine Blood Laboratory test result Abnormal (applies to non-numeric results) [facility] ([facility]) Urine Protein Laboratory test result 0-0 Abnormal (applies to non-numeric results) [facility] ([facility]) Urine Leukocytes Laboratory test result Abnormal (applies to non-numeric results) [facility] ([facility]) Urine Ketone Laboratory test result [facility] ([facility]) Urine Nitrite Laboratory test result Abnormal (applies to non-numeric results) [facility] ([facility]) Glucose [Presence] in Urine Laboratory test result [facility] ([facility]) Urine Urobilinogen Laboratory test result 0.2-1.0 Abnorm al (applies to non- numeric results) [facility] ([facility]) Bilirubin.total [Mass/volume] in Serum or Plasma Laboratory test resu [facility] ID Date Data Source [id number] 01/26/2020 12:04:00 PM EDT [facility] ([facility] Name Value Range Interpretation Code Description Data Marisela rce(s) Supporting Document(s) Thyrotropin [Units/volume] in Serum or Plasma by Detec tion limit <= 0.05 mIU/L 7.15 uIU/mL 0.36-3.74 [facility] ([facility] ) ID Date Data Source [id number] 01/26/2020 12:04:00 PM EDT [facility] ([facility] Name Value Range Interpretation Code Description Data Marisela rce(s) Supporting Document(s) Erythrocytes [#/volume] in Blood by Automated count 4.43 x10*6/UL 4.2 0-6.30 [facility] ([facility]) Leukocytes [#/volume] in Blood by Automated count 7.5 x10*3/UL 4.1-10 .9 [facility] ([facility]) MCV 91.0 fL 80.0-97.0 [facility] ([facility] [place]) Hemoglobin [Mass/volume] in Blood 13.8 g/dL 12.0-18.0 [facility] ([facility]) Hematocrit [Volume Fraction] of Blood by Automated count 40.4 % 3 7.0-51.0 [facility] ([facility]) MCH 31.2 pg 26.0-32.0 [facility] ([facility] [place]) MCHC 34.2 g/dL 31.0-38.0 [facility] ([facility] [place]) Erythrocyte distribution width [Ratio] by Automated count 13.1 % 11.6-13.7 [facility]) Platelets [#/volume] in Blood by Automated count 190 x10*3/UL 140-440 [facility] ([facility] Lymph % 17.3 % 10.0-58.5 [facility] ([facility] [place]) MPV 8.5 FL 7.8-11.0 [facility]) Mid % 4.4 % 1.7-9.3 [facility]) Mid # 0.3 x10*3/UL 0.1-0.6 [facility] ([facility]) Neut % 78.3 % 37.0-92.0 [facility]) Lymph # 1.3 x10*3/UL 0.6-4.1 [facility] ([facility]) Neut # 5.9 x10*3/UL 2.0-7.8 [facility] ([facility]) ID Date Data Source [id number] 06/16/2019 11:52:00 AM EST [facility] ([facility]) Name Value Range Interpretation Code Description Data Marisela rce(s) Supporting Document(s) Thyroxine (T4) free [Mass/volume] in Serum or Plasma 1.14 ng/dL 0.76- 1.46 [facility] ([facility]) ID Date Data Source [id number] 06/16/2019 11:52:00 AM EST [facility] ([facility]) Name Value Range Interpretation Code Description Data Marisela rce(s) Supporting Document(s) Thyrotropin [Units/volume] in Serum or Plasma by Detec tion limit <= 0.05 mIU/L 6.30 uIU/mL 0.36-3.74 [facility] ([facility] ) ID Date Data Source [id number] 06/16/2019 11:52:00 AM EST [facility] ([facility]) Name Value Range Interpretation Code Description Data Marisela rce(s) Supporting Document(s) Triglyceride [Mass/volume] in Serum or Plasma 80 mg/dL 30-150 [facility] ([facility]) Cholesterol [Mass/volume] in Serum or Plasma 173 mg/dL 131-200 [facility] ([facility]) Cholesterol in HDL [Mass/volume] in Serum or Plasma 68 mg/dL 35-60 [facility] ([facility]) Cholesterol in LDL [Mass/volume] in Serum or Plasma by calcu lation 89 CALC 50-159 [facility] ([facility]) ID Date Data Source [id number] 06/16/2019 11:52:00 AM EST [facility] ([facility]) Name Value Range Interpretation Code Description Data Marisela rce(s) Supporting Document(s) Urea nitrogen [Mass/volume] in Serum or Plasma 8 mg/dL 7-18 [facility] ([facility]) Glucose [Mass/volume] in Serum or Plasma 95 mg/dL 74-99 [facility] ([facility]) 100-125 mg/dL PRE-DIABETES/FASTING >126 mg/dL DIABETES/FASTING Potassium [Moles/volume] in Serum or Plasma 4.0 meq/L 3.5-5.1 [facility] ([facility]) Creatinine 0.9 mg/dL 0.6-1.3 [facility] ([facility] Sodium [Moles/volume] in Serum or Plasma 140 meq/L 136-145 [facility] ([facility]) Carbon dioxide, total [Moles/volume] in Serum or Plasma 31 meq/L 21 -32 [facility] ([facility]) Calcium [Mass/volume] in Serum or Plasma 8.8 mg/dL 8.5-10.1 [facility] ([facility]) Chloride [Moles/volume] in Serum or Plasma 103 meq/L 98-107 [facility] ([facility]) Glomerular filtration rate/1.73 sq M pre dicted among non-blacks [Volume Rate/Area] in Serum or Plasma by Creatinine-based formula (MDRD) Laboratory test result [facility] ([facility] Glomerular filtration rate/1.73 sq M pre dicted among blacks [Volume Rate/Area] in Serum or Plasma by Creatinine-based formula (MDRD) Laboratory test result [facility] ([facility]) <content>CHRONIC KIDNEY DISEASE STAGING PER NKF</content>
<content></content>
<content>STAGE I & II GFR >= 60 NORMAL TO MILDLY DECREASED</content>
<content>STAGE III GFR 30-59 MODERATELY DECREASED</content>
<content>STAGE IV GFR 15-29 SEVERELY DECREASED</content>
<content>STAGE V GFR <15 VERY LITTLE GFR LEFT</content>
<content>ESRD GFR <15 ON DUST COLLECTOR TREATER</content>
<content></content> ID Date Data Source [id number] 06/16/2019 11:52:00 AM EST [facility] ([facility]) Name Value Range Interpretation Code Description Data Marisela rce(s) Supporting Document(s) Magnesium 1.9 mg/dL 1.8-2.4 [facility]) ID Date Data Source [id number] 06/16/2019 11:52:00 AM EST [facility] ([facility]) Name Value Range Interpretation Code Description Data Marisela rce(s) Supporting Document(s) Erythrocytes [#/volume] in Blood by Automated count 4.97 x10*6/UL 4.2 0-6.30 [facility] ([facility]) Leukocytes [#/volume] in Blood by Automated count 6.7 x10*3/UL 4.1-10 .9 [facility] ([facility]) Hemoglobin [Mass/volume] in Blood 15.0 g/dL 12.0-18.0 [facility] ([facility]) Hematocrit [Volume Fraction] of Blood by Automated count 45.7 % 3 7.0-51.0 [facility] ([facility]) MCH 30.2 pg 26.0-32.0 [facility] MCV 91.9 fL 80.0-97.0 [facility] Platelets [#/volume] in Blood by Automated count 165 x10*3/UL 140-440 [facility] ([facility]) Erythrocyte distribution width [Ratio] by Automated count 13.2 % 11.6-13.7 [facility] ([facility]) MCHC 32.9 g/dL 31.0-38.0 [facility] Lymph % 19.8 % 10.0-58.5 [facility] MPV 9.3 FL 7.8-11.0 [facility] Mid % 6.9 % 1.7-9.3 [facility] Lymph # 1.3 x10*3/UL 0.6-4.1 [facility] ([facility]) Mid # 0.5 x10*3/UL 0.1-0.6 [facility] ([facility]) Neut % 73.3 % 37.0-92.0 [facility]) Neut # 4.9 x10*3/UL 2.0-7.8 [facility] ([facility]) ID Date Data Source [id number] 06/10/2019 04:55:00 PM EST [facility] Hospital Name: JULIANO JENKINS : 1955 Age/Sex: 64M Ordering Provider: Luis Gold MD Med Rec #: [id number] Reg Status: [facility] Room #: Date of Service: 06/10/19 Report Number: [id number] cc:Luis Gold MD Send Report To: [id number] XRP/XR Hip Rt 1-2 view w AP [...] Date/Time: 06/10/19 1254 Transcribed Date/Time: 06/10/19 1655 Chess Instructor: DENISE Name Value Range Interpretation Code Description Data Marisela rce(s) Supporting Document(s) Procedure Social History Code Duration Value Status Description Data Source(s ) Smoking 03/21/2020 12:00:00 AM EST Former Smoker completed Former Smoker eCW1 ([facility]) Smoking 03/21/2020 12:00:00 AM EST Former Smoker completed Former Smoker eCW1 ([facility]) Smoking 03/21/2020 12:00:00 AM EST Former Smoker completed Former Smoker eCW1 ([facility]) Smoking 03/21/2020 12:00:00 AM EST Former Smoker completed Former Smoker eCW1 ([facility]) Smoking 03/21/2020 12:00:00 AM EST Former Smoker completed Former Smoker eCW1 ([facility]) Vital Signs ID Date Data Source UNK Name Value Range Interpretation Code Description Data Source(s) Body height 65.25 [in_i] 65.25 [in_i] [facility] ([facility]) 5'5.25" Heart rate 52 /min 52 /min [facility] Diastolic blood pressure 80 mm[Hg] 80 mm[Hg] [facility] ([facility]) LT Arm Systolic blood pressure 110 mm[Hg] 110 mm[Hg] M [facility] ([facility]) LT Arm Oxygen saturation in Arterial blood by Pulse oximetry 94 % 94 % [facility] ([facility]) RM Air Body height 65.25 [in_i] 65.25 [in_i] [facility] ([facility]) 5'5.25" Heart rate 97 /min 97 /min [facility] ([facility]) Diastolic blood pressure 70 mm[Hg] 70 mm[Hg] [facility] ([facility]) Systolic blood pressure 112 mm[Hg] 112 mm[Hg] M EDENT ([facility]) Diastolic blood pressure 72 mm[Hg] 72 mm[Hg] eCW1 ([facility]) Systolic blood pressure 122 mm[Hg] 122 mm[Hg] e CW1 ([facility]) Body temperature 97.0 [degF] 97.0 [degF] eCW1 ( [facility]) Respiratory rate 20 /min 20 /min eCW1 ([facility]) Heart rate 80 /min 80 /min eCW1 ([facility]) Body mass index (BMI) [Ratio] 69.96 kg/m2 69.96 kg/m2 eCW1 ([facility]) Body height 63 [in_i] 63 [in_i] eCW1 ([facility]) Body weight 395 [lb_av] 395 [lb_av] eCW1 [facility] Body mass index (BMI) [Ratio] 62.1 kg/m2 62.1 k g/m2 [facility] ([facility]) Body weight 376.00 [lb_av] 376.00 [lb_av] [facility] T ([facility]) Body height 65.25 [in_i] 65.25 [in_i] [facility] ([facility]) 5'5.25" Body mass index (BMI) [Ratio] 66.2 kg/m2 66.2 k g/m2 [facility] ([facility]) Oxygen saturation in Arterial blood by Pulse oximetry 99 % 99 % [facility] ([facility]) Air Body weight 401.00 [lb_av] 401.00 [lb_av] [facility] ([facility]) Body height 65.25 [in_i] 65.25 [in_i] [facility] ([facility]) 5'5.25" Heart rate 87 /min 87 /min [facility]) Diastolic blood pressure 70 mm[Hg] 70 mm[Hg] [facility] ([facility]) Systolic blood pressure 110 mm[Hg] 110 mm[Hg] [facility] ([facility]) Body weight 176.450 kg 176.450 kg [facility] ([facility], ) Body mass index (BMI) [Ratio] 64.7 kg/m2 64.7 k g/m2 [facility] ([facility], ) Body weight 389.00 [lb_av] 389.00 [lb_av] [facility] T ([facility], ) Body height 65 [in_i] 65 [in_i] [facility] ([facility], ) 5'5" Diastolic blood pressure 68 mm[Hg] 68 mm[Hg] [facility] ([facility], ) Systolic blood pressure 114 mm[Hg] 114 mm[Hg] [facility] Body weight 180.533 kg 180.533 kg [facility] ([facility]) Body mass index (BMI) [Ratio] 66.2 kg/m2 66.2 k g/m2 [facility] ([facility]) Body weight 398.00 [lb_av] 398.00 [lb_av] [facility] ([facility]) Body height 65 [in_i] 65 [in_i] [facility] ([facility]) 5'5" Diastolic blood pressure 80 mm[Hg] 80 mm[Hg] [facility] ([facility]) Systolic blood pressure 150 mm[Hg] 150 mm[Hg] [facility] ([facility]) Body mass index (BMI) [Ratio] 64.9 kg/m2 64.9 k g/m2 [facility] ([facility]) Oxygen saturation in Arterial blood by Pulse oximetry 94 % 94 % [facility] ([facility]) Air Body weight 393.00 [lb_av] 393.00 [lb_av] [facility] ([facility]) Body height 65.25 [in_i] 65.25 [in_i] [facility] ([facility]) 5'5.25" Heart rate 78 /min 78 /min [facility] ([facility]) Diastolic blood pressure 64 mm[Hg] 64 mm[Hg] [facility] ([facility]) Systolic blood pressure 120 mm[Hg] 120 mm[Hg] [facility] ([facility]) ID Date Data Source [id number] 06/23/2019 08:55:00 AM EST [facility] Hospital Name Value Range Interpretation Code Description Data Source(s) Weight (Calculated Kilograms) 146.96 146.96 [facility] Height (Calculated Centimeters) 165.1 165. 1 [facility] Body Mass Index (BMI) 53.8 53.8 [facility]
[2020-05-24 08:22] LABS: ALBUMIN 2.7 GM/DL (3.2-5.2)
--- NOTE | 2020-05-24 08:31 | ECGEPIP ---
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
--- NOTE | 2020-05-24 08:54 | REP ---
INDICATION: ? PNA COMPARISON: 04/06/2020. TECHNIQUE: PA/Lateral FINDINGS: Lungs: There are diffuse bilateral infiltrates present. The heart appears mildly enlarged. There is mild tortuosity of the thoracic aorta. The mediastinal silhouette is otherwise unremarkable. IMPRESSION: Diffuse bilateral infiltrates. <Electronically signed by Nathan Yang > 05/24/20 0869
[2020-05-24] MEDS ORDERED: FUROSEMIDE 40MG/4ML VIAL (J1940) IV SCH (09:00)
[2020-05-24] MEDS ORDERED: ENOXAPARIN 40MG/0.4ML SYRINGE (J1650 PER 10MG) SC SCH (09:00)
[2020-05-24 09:40] VITALS: BP 121/59
[2020-05-24] MEDS ORDERED: FUROSEMIDE 40MG/4ML VIAL (J1940) As Ordered ONE (10:37)
[2020-05-24] MEDS: cefTRIAXone SOD 1 GM in D5W MINI-BAG PLUS 50 ML IV SCH (11:20)
[2020-05-24] MEDS ORDERED: ACETAMINOPHEN TAB 650MG DOSE (2X325MG) PO PRN (13:00)
--- NOTE | 2020-05-24 13:31 | HPEPDOC ---
[facility] Medical History & Physical Date of Admission May 24, 2020 Date of Service: May 24, 2020 History and Physical CHIEF COMPLAINT: weakness HISTORY OF PRESENT ILLNESS: Patient is a 64-year-old male with past medical history of atrial fibrillation on xarelto, insomnia, depression, morbid obesity, lower ext swelling, ? PVD who presented to [facility] emergency room for increased weakness. According to the patient's he has having increased difficulty getting up from standing at times and keeping his balance. He has fallen several times over the past several days. He is also called EMS at home 3 times over the past 24 hours due to difficulty maneuvering around his home. He states he has been "out of his medications" but denies issues with paying for his medications. He denies chest spray, increased shortness of breath, fevers, chills, nausea, vomiting, diarrhea, abdominal pain, recent illnesses but does admit to some right knee aching. In the emergency room vital signs were stable. Labs showed low calcium but was corrected with albumin. WBC mildly elevated at 10.8, UA positive. CXR showed bilateral infiltrates. CT abd/pelvis was done for increased abd distention showing: large midline ventral hernia containing multiple loops of small bowel without signs of obstruction or strangulation, similar to the prior exam, small bilateral pleural effusions persist, new patchy consolidation in the lung bases, especially the right middle lobe and right lower lobe, diffuse, nonspecific subcutaneous tissue edema, increased from the prior exam. XR of right knee: no acute fracture. Patient remained stable on room air had no signs or symptoms of pneumonia clinically. Due to falling several times and having di fficulty maneuvering around his home with increased weakness, the patient was admitted for generalized weakness possibly 2/2 to community acquired pneumonia, urinary tract infection. REVIEW OF SYSTEMS: Neg except for what is mentioned above PAST MEDICAL HISTORY: Atrial fibrillation on xarelto Insomnia Depression Morbid obesity Lower ext swelling PVD anemia PAST SURGICAL HISTORY: left hip replacement hernia repair cholecystectomy appendectomy FAMILY HISTORY: Father: pancreatic cancer. at 50 y/o Mother: DM. at 73 y/o SOCIAL HISTORY: Smoker for 46 years, quit in 2019, 1 2 PPD. Denies alcohol, illicit drug use. 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 Uses walker at baseline, girlfriend helps with activities of daily living. Full Code. ALLERGIES: Please see below. HOME MEDICATIONS: Please see below. PHYSICAL EXAMINATION: VS: Please see below CONSTITUTIONAL: Dissheveled, no acute distress, resting comfortably, AAO x 3 EYES: PERRLA, EOM intact HENT, MOUTH: Normocephalic, atraumatic, moist mucous membranes NECK: SUPPLE, no JVD, no lymphadenopathy, no carotid bruit CV: irregularly irregular rhythm, S1S2 normal, no murmurs/rubs/gallops RESPIRATORY: Decreased breath sounds bilaterally, no rales/rhonchi/wheezes GI: obese abdomen, BS positive in 4 quadrants, soft, nontender, nondistended, no rebound or guarding, no organomegaly : very swollen scrotum, difficult to see penis MUSCULOSKELETAL: Normal ROM. No cyanosis, clubbing, swelling, joint deformity, +1-2 pitting lower ext edema INTEGUMENTARY: red, warm skin under pannuses, in groin- appears to be yeast- nontender. Skin tear on right elbow. Hardened, discolored skin on b/l lower ext likely from PVD. No rashes, no lesions NEUROLOGIC: Cranial Nerves II-XII are intact, no focal deficits PSYCHIATRIC: Mood and affect are normal LABORATORY DATA: Please see below IMAGING: Right knee XR: 1. No acute fracture or dislocation of the right knee. 2. Tricompartment degenerative changes are visualized. CT abd/pelvis: 1. Right sided nephrolithiasis and staghorn calculi again seen. Fullness of the right renal pelvis and calices but no ureteral stones or hydroureter identified. 2. Large midline ventral hernia containing multiple loops of small bowel without signs of obstruction or strangulation, similar to the prior exam. 3. Small bilateral pleural effusions persist. There is new patchy consolidation in the lung bases, especially the right middle lobe and right lower lobe, probably due to pneumonia, but not fully assessed on this exam. 4. Fairly diffuse, nonspecific subcutaneous tissue edema, increased from the prior exam. CXR: Diffuse bilateral infiltrates. ASSESSMENT: 64-year-old male with past medical history of atrial fibrillation on xarelto, insomnia, depression, morbid obesity, lower ext swelling, ? PVD admitted for generalized weakness possibly 2/2 to community acquired pneumonia, urinary tract infection. PLAN: Generalized weakness likely multifactorial to community acquired PNA, UTI and baseline deconditioning -Multiple falls over the past several weeks, at baseline uses walker but has lift chair and walks independently -Lives alone with gf but she helps with activities of daily living -PT/OT -Please see below for treatment of individual issues Right knee pain poss 2/2 to chronic degenerative changes -XR knee: no acute fracture -No pain on palpation on exam, no increased swelling of right knee compared to left -Remains unsteady on feet -PT/OT Community acquired pneumonia -Saturating well on RA -WBC 10.8, afebrile, LA wnl -CXR: bilateral infiltrates -F/u BCx, sputum culture -C/w ceftriaxone, doxycycline UTI -WBC 10.8, denies dysuria, fevers -UCx and BCx pending -F/u daily CBC -C/w ceftriaxone Difficulty urinating / controlling urine, ? urinary obstruction vs. incontinence -Difficult to place mccarthy due to incr lower ext edema -Discussed case with Dr. Live -Once placed mccarthy, c/w treatment above for UTI and see if improves. may require cont use of catheter. Atrial fibrillation on xarelto -Rate controlled -C/w BB, xarelto Insomnia -C/w home med Depression. -Stable -C/w home med Anemia -Chronic, no s/s of bleeding -CBC daily Yeast infection, abd and groin -Likely worsened by morbid obesity and urinary incontinence -Nystatin powder Morbid obesity -BMPI >70 -Complicating care -F/u with PCP DVT px -Xarelto DISPOSITION: Admitted under inpatient status. PT/OT. Patient would like to go home when medically improved. Vital Signs Vital Signs Date Time Temp Pulse Resp B/P (MAP) Pulse Ox O2 Delivery O2 Flow Rate FiO2 05/24/20 09:40 97.7 86 20 121/59 (79) 96 Room Air Laboratory Data Labs 24H Laboratory Tests 2 05/24/20 04:50: Prothrombin Time 19.7H, Prothromb Time International Ratio 1.63, Activated Partial Thromboplast Time 45.1H 05/24/20 04:52: Coronavirus (COVID-19)(PCR) NEGATIVE, Influenza Type A (RT-PCR) NEGATIVE, Influenza Type B (RT-PCR) NEGATIVE, Respiratory Syncytial Virus (PCR) NEGATIVE 05/24/20 04:53: Urine Color ARNOLD, Urine Appearance CLOUDYH, Urine pH 6.0, Urine Specific Mertens 1.021, Urine Protein 2+H, Urine Glucose (UA) NEGATIVE, Urine Ketones NEGATIVE, Urine Blood 3+H, Urine Nitrite NEGATIVE, Urine Bilirubin NEGATIVE, Urine Urobilinogen 4.0H, Urine Leukocyte Esterase 2+H, Urine WBC (Auto) TNTCH, Urine RBC (Auto) TNTCH, Urine Hyaline Casts (Auto) 0, Urine Bacteria (Auto) 1+H, Urine Squamous Epithelial Cells 1, Urine Mucus (Auto) MODERATE, Urine Sperm (Auto) 05/24/20 05:16: Immature Granulocyte % (Auto) 1.4, Neutrophils (%) (Auto) 79.0H, Lymphocytes (%) (Auto) 8.8L, Monocytes (%) (Auto) 9.4H, Eosinophils (%) (Auto) 1.0, Basophils (%) (Auto) 0.4, Neutrophils # (Auto) 8.6H, Lymphocytes # (Auto) 1.0L, Monocytes # (Auto) 1.0H, Eosinophils # (Auto) 0.1, Basophils # (Auto) 0.0, Nucleated Red Blood Cells % (auto) 0.0, Anion Gap 5L, Glomerular Filtration Rate > 60.0, Calcium Level 7.7L, Total Creatine Kinase 123, Creatine Kinase MB 2.5, Creatine Kinase MB Relative Index 2.03, Troponin I < 0.02, Albumin 2.7L CBC/BMP Laboratory Tests 05/24/20 05:16 Microbiology Microbiology 05/24/20 Blood Culture, Received Pending 05/24/20 Blood Culture, Received Pending 05/24/20 Urine Culture, Received Pending Home Medications Scheduled Metoprolol Succinate (Metoprolol Succinate) 50 Mg Tab.er.24h, 50 MG PO QHS Rivaroxaban (Xarelto) 20 Mg Tablet, 20 MG PO QHS Sertraline HCl (Sertraline HCl) 100 Mg Tablet, 100 MG PO QHS Scheduled PRN Nystatin (Nystatin Powder) 15 Gm Powder, 1 DOSE TOP TID PRN for RASH APPLY TO STOMACH FOLDS AND UNDERARMS Zolpidem Tartrate (Zolpidem Tartrate) 10 Mg Tablet, 10 MG PO QHS PRN for INSOMNIA Allergies Coded Allergies: No Known Allergies (Verified , 07/12/07) A-FIB/CHADSVASC A-FIB History Current/History of A-Fib/PAF?: Yes Current PO Anticoag Therapy: Yes Age/Risk Factor Scoring CHADSVASC: CHADSVASC Response (Comments) Value Age Risk Factor Age < 65 years old 0 Gender Risk Factor Male 0 Hx of CHF No 0 Hx of HTN No 0 Hx of Stroke/TIA/or VTE No 0 Hx of Diabetes No 0 Hx of Vascular Disease Yes 1 Total 1 Treatment Treatment ordered: Rivaroxaban Anette Best MD May 24, 2020 13:30
[2020-05-24 14:00] VITALS: BP 130/66
[2020-05-24] MEDS: DOXYCYCLINE HYCLATE 100MG TABLET PO SCH ×2 (15:24→21:40)
[2020-05-24] MEDS: RIVAROXABAN 20 MG TAB (XARELTO) PO SCH (21:40)
[2020-05-24] MEDS: SERTRALINE 100 MG TAB PO SCH (21:40)
[2020-05-24] MEDS: METOPROLOL SUCC (TopROL XL) 50MG **XL** TAB PO SCH (21:41)
[2020-05-24 22:00] VITALS: BP 113/61
[2020-05-25 06:00] VITALS: BP 109/62
[2020-05-25 06:23] LABS: HEMATOCRIT 31.5 % (42.0-52.0); HEMOGLOBIN 9.5 g/dl (13.5-17.5); MEAN CORPUSCULAR HEMOGLOBIN 29.5 pg (27.0-33.0); MEAN CORPUSCULAR HGB CONC 30.2 g/dl (32.0-36.5); MEAN CORPUSCULAR VOLUME 97.8 fl (80.0-96.0); PLATELET COUNT, AUTOMATED 144 10^3/uL (150-450); RED BLOOD COUNT 3.22 10^6/uL (4.30-6.10); WHITE BLOOD COUNT 9.3 10^3/uL (4.0-10.0)
[2020-05-25 06:53] LABS: ALBUMIN 2.3 GM/DL (3.2-5.2); ALT/SGPT 14 U/L (12-78); BILIRUBIN,TOTAL 0.7 MG/DL (0.2-1.0); BLOOD UREA NITROGEN 9 MG/DL (7-18); CALCIUM LEVEL 7.3 MG/DL (8.8-10.2); CARBON DIOXIDE LEVEL 29 MEQ/L (21-32); CHLORIDE LEVEL 105 MEQ/L (98-107); GLOMERULAR FILTRATION RATE > 60.0 (>49); GLUCOSE, FASTING 97 MG/DL (70-100); POTASSIUM SERUM 3.3 MEQ/L (3.5-5.1); SODIUM LEVEL 140 MEQ/L (136-145); TOTAL PROTEIN 6.2 GM/DL (6.4-8.2)
[2020-05-25] MEDS ORDERED: POTASSIUM CHLORIDE 10 MEQ SR TABLET PO SCH (09:00)
[2020-05-25] MEDS ORDERED: FUROSEMIDE 40MG/4ML VIAL (J1940) IV SCH (09:00)
[2020-05-25] MEDS: DOXYCYCLINE HYCLATE 100MG TABLET PO SCH ×2 (09:26→21:58)
[2020-05-25] MEDS: cefTRIAXone SOD 1 GM in D5W MINI-BAG PLUS 50 ML IV SCH (12:03)
[2020-05-25 15:53] VITALS: BP_SYST 104; BP_SYST 127; BP_DIAS 55; BP_DIAS 61
--- NOTE | 2020-05-25 18:07 | IPNPDOC ---
Date Seen The patient was seen on 05/25/20. Progress Note SUBJECTIVE: Did poorly with PT. Mccarthy placed by urology and will likely need chronic mccarthy for some time. Low K, replaced. Denies chest pain, n/v/d, fevers or chills. OBJECTIVE: PHYSICAL EXAMINATION: VS: Please see below CONSTITUTIONAL: Dissheveled, resting in bed, AAO x 3 EYES: PERRLA, EOM intact HENT, MOUTH: Normocephalic, atraumatic, moist mucous membranes NECK: SUPPLE, no JVD, no lymphadenopathy, no carotid bruit CV: irregularly irregular rhythm, S1S2 normal, no murmurs/rubs/gallops RESPIRATORY: Decreased breath sounds bilaterally, no rales/rhonchi/wheezes GI: obese abdomen, BS positive in 4 quadrants, soft, nontender, nondistended, no rebound or guarding, no organomegaly : very swollen scrotum, difficult to see penis MUSCULOSKELETAL: Normal ROM. No cyanosis, clubbing, swelling, joint deformity, +1-2 pitting lower ext edema INTEGUMENTARY: red, warm skin under pannuses, in groin- appears to be yeast- nontender. Skin tear on right elbow. Hardened, discolored skin on b/l lower ext likely from PVD. No rashes, no lesions NEUROLOGIC: Cranial Nerves II-XII are intact, no focal deficits PSYCHIATRIC: Mood and affect are normal LABORATORY DATA: Please see below MICROBIOLOGY: BCx x 2 sets: NG UCx: likely contaminated IMAGING: Right knee XR: 1. No acute fracture or dislocation of the right knee. 2. Tricompartment degenerative changes are visualized. CT abd/pelvis: 1. Right sided nephrolithiasis and staghorn calculi again seen. Fullness of the right renal pelvis and calices but no ureteral stones or hydroureter identified. 2. Large midline ventral hernia containing multiple loops of small bowel without signs of obstruction or strangulation, similar to the prior exam. 3. Small bilateral pleural effusions persist. There is new patchy consolidation in the lung bases, especially the right middle lobe and right lower lobe, probably due to pneumonia, but not fully assessed on this exam. 4. Fairly diffuse, nonspecific subcutaneous tissue edema, increased from the prior exam. CXR: Diffuse bilateral infiltrates. ASSESSMENT: 64-year-old male with past medical history of atrial fibrillation on xarelto, insomnia, depression, morbid obesity, lower ext swelling, ? PVD admitted for generalized weakness possibly 2/2 to community acquired pneumonia, urinary tract infection. PLAN: Generalized weakness likely multifactorial to community acquired PNA, baseline deconditioning -Multiple falls over the past several weeks, at baseline uses walker but has lift chair and walks independently -Lives alone with gf but she helps with activities of daily living -PT: pt demonstrates poor safety awareness at times but is very motivated to get OOB; unfortunately due the size of the patient it is not very safe to get patient OOB at this time. -Please see below for treatment of individual issues Community acquired pneumonia -Saturating well on RA -WBC wnl, afebrile, LA wnl -CXR: bilateral infiltrates -BCx NG at 24 H, sputum culture not yet collected -C/w ceftriaxone, doxycycline UTI -UCx likely contaminated Difficulty urinating / controlling urine, ? urinary obstruction vs. incontinence -Mccarthy placed by Dr. Live who states he would likely need for period of time Yeast infection abdominal pannus, groin -Likely 2/2 to incontinence -Nystatin powder Lower extremity swelling, lymphedema, anasarca -Mccarthy placed, monitor U/O closely -Lasix increased to 60 mg IV daily, may need to go up to BID dosing 40 mg IV BID Right knee pain poss 2/2 to chronic degenerative changes-improved today -XR knee: no acute fracture -No pain on palpation on exam, no increased swelling of right knee compared to left -Remains unsteady on feet -PT/OT Atrial fibrillation on xarelto -Rate controlled -C/w BB, xarelto Insomnia -C/w home med Depression. -Stable -C/w home med Anemia -Chronic, no s/s of bleeding -CBC daily Yeast infection, abd and groin -Likely worsened by morbid obesity and urinary incontinence -Nystatin powder Decubitus ulcers, Stage II buttocks -Appear clean, not requiring debridement -Wound care, offloading whenever possible Morbid obesity -BMPI >70 -Complicating care -F/u with PCP DVT px -Xarelto DISPOSITION: Admitted under inpatient status. PT/OT. Patient would like to go home when medically improved. VS, I&O, 24H, Fishbone Vital Signs/I&O Vital Signs Date Time Temp Pulse Resp B/P (MAP) Pulse Ox O2 Delivery O2 Flow Rate FiO2 05/25/20 15:53 98.8 129 18 127/61 (83) 97 Room Air I&O- Last 24 Hours up to 6 AM 05/25/20 06:00 Intake Total 2520 ml Output Total 1100 ml Balance 1420 ml Laboratory Data 24H LABS Laboratory Tests 2 05/25/20 06:01: Nucleated Red Blood Cells % (auto) 0.0, Anion Gap 6L, Glomerular Filtration Rate > 60.0, Calcium Level 7.3L, Total Bilirubin 0.7, Aspartate Amino Transf (AST/SGOT) 22, Alanine Aminotransferase (ALT/SGPT) 14, Alkaline Phosphatase 138H, Total Protein 6.2L, Albumin 2.3L, Albumin/Globulin Ratio 0.6 CBC/BMP Laboratory Tests 05/25/20 06:01 Microbiology Microbiology 05/24/20 Blood Culture - Preliminary, Resulted No growth after 24 hours . All specim... 05/24/20 Blood Culture - Preliminary, Resulted No growth after 24 hours . All specim... 05/24/20 Urine Culture - Final, Complete Current Medications Current Medications Medications (Trade) Dose Ordered Sig/Anne Route PRN Reason Start Time Stop Time Status Last Admin Dose Admin Acetaminophen (Tylenol Tab) 650 mg Q4H PRN PO PAIN OR FEVER 05/24/20 07:45 Acetaminophen (Tylenol Tab) 650 mg Q6HP PRN PO PAIN / FEVER 05/24/20 13:00 Ceftriaxone Sodium 1 gm/ Dextrose 50 ml @ 100 mls/hr Q24H IV 05/24/20 11:00 05/25/20 12:03 Doxycycline Hyclate (Vibramycin) 100 mg BID PO 05/24/20 09:00 05/25/20 09:26 Enoxaparin Sodium (Lovenox) 40 mg DAILY SC 05/24/20 09:00 05/24/20 08:39 DC Furosemide (LASIX injection) 40 mg DAILY IV 05/24/20 09:00 05/25/20 07:58 DC 05/24/20 09:00 Furosemide (LASIX injection) 60 mg DAILY IV 05/25/20 09:00 05/25/20 09:26 Home Med (Med Rec Complete!) ASDIRECTED XX 05/24/20 05:15 05/24/20 05:17 DC Metoprolol Succinate (TopROL XL) 50 mg QHS PO 05/24/20 21:00 05/24/20 21:41 Morphine Sulfate (Morphine Sulfate Inj) 4 mg Q30M PRN IV SEVERE PAIN (PS 8-10) 05/24/20 00:15 05/24/20 12:51 DC 05/24/20 00:20 Nystatin (Mycostatin Powder, Nystop) 1 dose TID PRN TOP RASH 05/24/20 07:45 05/24/20 17:46 Potassium Chloride (Micro-K Extencaps) 40 meq DAILY PO 05/25/20 09:00 05/25/20 09:26 Rivaroxaban (Xarelto) 20 mg QHS PO 05/24/20 21:00 05/24/20 21:40 Sertraline HCl (Zoloft) 100 mg QHS PO 05/24/20 21:00 05/24/20 21:40 Allergies Coded Allergies: No Known Allergies (Verified , 07/12/07) Anette Best MD May 25, 2020 18:07
[2020-05-25] MEDS: RIVAROXABAN 20 MG TAB (XARELTO) PO SCH (21:58)
[2020-05-25] MEDS: SERTRALINE 100 MG TAB PO SCH (21:58)
[2020-05-25] MEDS: METOPROLOL SUCC (TopROL XL) 50MG **XL** TAB PO SCH (21:59)
[2020-05-25] MEDS: ACETAMINOPHEN TAB 650MG DOSE (2X325MG) PO PRN (21:59)
[2020-05-25 22:00] VITALS: BP 118/68
[2020-05-26 06:00] VITALS: BP 112/62
[2020-05-26 06:51] LABS: HEMATOCRIT 30.7 % (42.0-52.0); HEMOGLOBIN 9.5 g/dl (13.5-17.5); MEAN CORPUSCULAR HEMOGLOBIN 29.7 pg (27.0-33.0); MEAN CORPUSCULAR HGB CONC 30.9 g/dl (32.0-36.5); MEAN CORPUSCULAR VOLUME 95.9 fl (80.0-96.0); PLATELET COUNT, AUTOMATED 139 10^3/uL (150-450); WHITE BLOOD COUNT 8.3 10^3/uL (4.0-10.0)
[2020-05-26 07:20] LABS: ALBUMIN 2.2 GM/DL (3.2-5.2); ALT/SGPT 13 U/L (12-78); BILIRUBIN,TOTAL 0.8 MG/DL (0.2-1.0); BLOOD UREA NITROGEN 12 MG/DL (7-18); CALCIUM LEVEL 7.9 MG/DL (8.8-10.2); CARBON DIOXIDE LEVEL 32 MEQ/L (21-32); CHLORIDE LEVEL 103 MEQ/L (98-107); GLOMERULAR FILTRATION RATE > 60.0 (>49); GLUCOSE, FASTING 85 MG/DL (70-100); SODIUM LEVEL 139 MEQ/L (136-145); TOTAL PROTEIN 6.6 GM/DL (6.4-8.2)
[2020-05-26] MEDS: FUROSEMIDE 40MG/4ML VIAL (J1940) IV SCH ×2 (08:55→17:42)
[2020-05-26] MEDS: DOXYCYCLINE HYCLATE 100MG TABLET PO SCH ×2 (08:55→20:37)
[2020-05-26] MEDS: POTASSIUM CHLORIDE 10 MEQ SR TABLET PO SCH ×2 (08:55→20:38)
[2020-05-26] MEDS: cefTRIAXone SOD 1 GM in D5W MINI-BAG PLUS 50 ML IV SCH (12:37)
[2020-05-26 14:15] VITALS: BP 116/64
--- NOTE | 2020-05-26 17:34 | IPNPDOC ---
Date Seen The patient was seen on 05/26/20. Progress Note SUBJECTIVE: Neg fluid balance 2 L, diffuse swelling seems slightly improved. On fluid restriction. OBJECTIVE: PHYSICAL EXAMINATION: VS: Please see below CONSTITUTIONAL: Resting in bed, AAO x 3 EYES: PERRLA, EOM intact HENT, MOUTH: Normocephalic, atraumatic, moist mucous membranes NECK: SUPPLE, no JVD, no lymphadenopathy, no carotid bruit CV: irregularly irregular rhythm, S1S2 normal, no murmurs/rubs/gallops RESPIRATORY: Decreased breath sounds bilaterally, no rales/rhonchi/wheezes GI: obese abdomen, BS positive in 4 quadrants, soft, nontender, nondistended, no rebound or guarding, no organomegaly : very swollen scrotum, mccarthy cath in place MUSCULOSKELETAL: Normal ROM. No cyanosis, clubbing, swelling, joint deformity, +3 pitting lower ext edema up to abdomen INTEGUMENTARY: red, warm skin under pannuses, in groin- appears to be yeast- nontender. Skin tear on right elbow. Hardened, discolored skin on b/l lower ext likely from PVD. No rashes, no lesions NEUROLOGIC: Cranial Nerves II-XII are intact, no focal deficits PSYCHIATRIC: Mood and affect are normal LABORATORY DATA: Please see below MICROBIOLOGY: BCx x 2 sets: NG UCx: likely contaminated IMAGING: Right knee XR: 1. No acute fracture or dislocation of the right knee. 2. Tricompartment degenerative changes are visualized. CT abd/pelvis: 1. Right sided nephrolithiasis and staghorn calculi again seen. Fullness of the right renal pelvis and calices but no ureteral stones or hydroureter identified. 2. Large midline ventral hernia containing multiple loops of small bowel without signs of obstruction or strangulation, similar to the prior exam. 3. Small bilateral pleural effusions persist. There is new patchy consolidation in the lung bases, especially the right middle lobe and right lower lobe, probably due to pneumonia, but not fully assessed on this exam. 4. Fairly diffuse, nonspecific subcutaneous tissue edema, increased from the prior exam. CXR: Diffuse bilateral infiltrates. ASSESSMENT: 64-year-old male with past medical history of atrial fibrillation on xarelto, insomnia, depression, morbid obesity, lower ext swelling, ? PVD admitted for generalized weakness possibly 2/2 to community acquired pneumonia, urinary tract infection. PLAN: Lower extremity swelling, lymphedema, anasarca -Neg 2 Liters overnight, fluid restriction tightened to 1800 ccdaily -Mccarthy placed, monitor U/O closely -Lasix increased to 40 BID as Cr holding -Daily wt Generalized weakness likely multifactorial to community acquired PNA, baseline deconditioning -Multiple falls over the past several weeks, at baseline uses walker but has lift chair and walks independently -Lives alone with gf but she helps with activities of daily living -PT: pt demonstrates poor safety awareness at times but is very motivated to get OOB; unfortunately due the size of the patient it is not very safe to get patient OOB at this time. -Please see below for treatment of individual issues Community acquired pneumonia -Saturating well on RA -WBC wnl, afebrile, LA wnl -CXR: bilateral infiltrates -BCx NG , sputum culture not yet collected -C/w ceftriaxone, doxycycline Difficulty urinating / controlling urine, ? urinary obstruction vs. incontinence -Mccarthy placed by Dr. Live who states he would likely need for period of time Yeast infection abdominal pannus, groin -Likely 2/2 to incontinence -Nystatin powder Right knee pain poss 2/2 to chronic degenerative changes-improved today -XR knee: no acute fracture -No pain on palpation on exam, no increased swelling of right knee compared to left -Remains unsteady on feet -PT/OT Atrial fibrillation on xarelto -Rate controlled -C/w BB, xarelto Insomnia -C/w home med Depression. -Stable -C/w home med Anemia -Chronic, no s/s of bleeding -CBC daily Yeast infection, abd and groin -Likely worsened by morbid obesity and urinary incontinence -Nystatin powder Decubitus ulcers, Stage II buttocks -Appear clean, not requiring debridement -Wound care, offloading whenever possible -Consider Dr. Knight consult after weekend Morbid obesity -BMPI >70 -Complicating care -F/u with PCP DVT px -Xarelto DISPOSITION: Admitted under inpatient status. PT/OT. Patient would like to go home when medically improved. VS, I&O, 24H, Fishbone Vital Signs/I&O Vital Signs Date Time Temp Pulse Resp B/P (MAP) Pulse Ox O2 Delivery O2 Flow Rate FiO2 05/26/20 06:00 98.0 67 18 112/62 (79) 93 Room Air I&O- Last 24 Hours up to 6 AM 05/26/20 06:00 Intake Total 2790 ml Output Total 5100 ml Balance -2310 ml Laboratory Data 24H LABS Laboratory Tests 2 05/26/20 06:30: Nucleated Red Blood Cells % (auto) 0.0, Anion Gap 4L, Glomerular Filtration Rate > 60.0, Calcium Level 7.9L, Total Bilirubin 0.8, Aspartate Amino Transf (AST/SGOT) 23, Alanine Aminotransferase (ALT/SGPT) 13, Alkaline Phosphatase 157H, Total Protein 6.6, Albumin 2.2L, Albumin/Globulin Ratio 0.5 CBC/BMP Laboratory Tests 05/26/20 06:30 Microbiology Microbiology 05/24/20 Blood Culture - Preliminary, Resulted No Growth after 48 hours. All Specime... 05/24/20 Blood Culture - Preliminary, Resulted No Growth after 48 hours. All Specime... 05/24/20 Urine Culture - Final, Complete Current Medications Current Medications Medications (Trade) Dose Ordered Sig/Anne Route PRN Reason Start Time Stop Time Status Last Admin Dose Admin Acetaminophen (Tylenol Tab) 650 mg Q4H PRN PO PAIN OR FEVER 05/24/20 07:45 05/25/20 21:59 Acetaminophen (Tylenol Tab) 650 mg Q6HP PRN PO PAIN / FEVER 05/24/20 13:00 Ceftriaxone Sodium 1 gm/ Dextrose 50 ml @ 100 mls/hr Q24H IV 05/24/20 11:00 05/26/20 12:37 Doxycycline Hyclate (Vibramycin) 100 mg BID PO 05/24/20 09:00 05/26/20 08:55 Enoxaparin Sodium (Lovenox) 40 mg DAILY SC 05/24/20 09:00 05/24/20 08:39 DC Furosemide (LASIX injection) 40 mg BID@0900,1700 IV 05/26/20 09:00 05/26/20 08:55 Furosemide (LASIX injection) 40 mg DAILY IV 05/24/20 09:00 05/25/20 07:58 DC 05/24/20 09:00 Furosemide (LASIX injection) 60 mg DAILY IV 05/25/20 09:00 05/26/20 08:20 DC 05/25/20 09:26 Home Med (Med Rec Complete!) ASDIRECTED XX 05/24/20 05:15 05/24/20 05:17 DC Metoprolol Succinate (TopROL XL) 50 mg QHS PO 05/24/20 21:00 05/25/20 21:59 Morphine Sulfate (Morphine Sulfate Inj) 4 mg Q30M PRN IV SEVERE PAIN (PS 8-10) 05/24/20 00:15 05/24/20 12:51 DC 05/24/20 00:20 Nystatin (Mycostatin Powder, Nystop) 1 dose TID PRN TOP RASH 05/24/20 07:45 05/24/20 17:46 Potassium Chloride (Micro-K Extencaps) 30 meq BID PO 05/26/20 09:00 05/26/20 08:55 Potassium Chloride (Micro-K Extencaps) 40 meq DAILY PO 05/25/20 09:00 05/26/20 08:19 DC 05/25/20 09:26 Rivaroxaban (Xarelto) 20 mg QHS PO 05/24/20 21:00 05/25/20 21:58 Sertraline HCl (Zoloft) 100 mg QHS PO 05/24/20 21:00 05/25/20 21:58 Allergies Coded Allergies: No Known Allergies (Verified , 07/12/07) Anette Best MD May 26, 2020 17:34
[2020-05-26] MEDS: RIVAROXABAN 20 MG TAB (XARELTO) PO SCH (20:37)
[2020-05-26] MEDS: METOPROLOL SUCC (TopROL XL) 50MG **XL** TAB PO SCH (20:37)
[2020-05-26] MEDS: SERTRALINE 100 MG TAB PO SCH (20:37)
[2020-05-26] MEDS: RAMELTEON 8 MG TAB (ROZEREM) PO PRN (20:37)
[2020-05-26] MEDS: ACETAMINOPHEN TAB 650MG DOSE (2X325MG) PO PRN (20:38)
[2020-05-27 05:58] VITALS: BP 102/64
[2020-05-27 06:41] LABS: HEMATOCRIT 33.3 % (42.0-52.0); HEMOGLOBIN 10.1 g/dl (13.5-17.5); MEAN CORPUSCULAR HGB CONC 30.3 g/dl (32.0-36.5); MEAN CORPUSCULAR VOLUME 98.8 fl (80.0-96.0); PLATELET COUNT, AUTOMATED 141 10^3/uL (150-450); RED BLOOD COUNT 3.37 10^6/uL (4.30-6.10); WHITE BLOOD COUNT 7.4 10^3/uL (4.0-10.0)
[2020-05-27 07:15] LABS: ALBUMIN 2.3 GM/DL (3.2-5.2); ALT/SGPT 17 U/L (12-78); BILIRUBIN,TOTAL 0.5 MG/DL (0.2-1.0); BLOOD UREA NITROGEN 16 MG/DL (7-18); CALCIUM LEVEL 7.7 MG/DL (8.8-10.2); CARBON DIOXIDE LEVEL 34 MEQ/L (21-32); CHLORIDE LEVEL 104 MEQ/L (98-107); CREATININE FOR GFR 0.78 MG/DL (0.70-1.30); GLOMERULAR FILTRATION RATE > 60.0 (>49); GLUCOSE, FASTING 91 MG/DL (70-100); POTASSIUM SERUM 3.3 MEQ/L (3.5-5.1); SODIUM LEVEL 143 MEQ/L (136-145); TOTAL PROTEIN 6.6 GM/DL (6.4-8.2)
[2020-05-27] MEDS: POTASSIUM CHLORIDE 10 MEQ SR TABLET PO SCH ×2 (09:42→21:44)
[2020-05-27] MEDS: FUROSEMIDE 40MG/4ML VIAL (J1940) IV SCH ×2 (09:43→17:40)
[2020-05-27] MEDS: DOXYCYCLINE HYCLATE 100MG TABLET PO SCH ×2 (09:43→21:44)
[2020-05-27] MEDS: cefTRIAXone SOD 1 GM in D5W MINI-BAG PLUS 50 ML IV SCH (11:23)
[2020-05-27 14:00] VITALS: BP 117/65
--- NOTE | 2020-05-27 18:34 | IPNPDOC ---
Date Seen The patient was seen on 05/27/20. Progress Note SUBJECTIVE: Neg fluid balance , 5.7 L over 24H. Swelling improving with diuresis BID and fluid restriction. Denies increased shortness of breath, chest pain. OBJECTIVE: PHYSICAL EXAMINATION: VS: Please see below CONSTITUTIONAL: Resting in bed, AAO x 3 EYES: PERRLA, EOM intact HENT, MOUTH: Normocephalic, atraumatic, moist mucous membranes NECK: SUPPLE, no JVD, no lymphadenopathy, no carotid bruit CV: irregularly irregular rhythm, S1S2 normal, no murmurs/rubs/gallops RESPIRATORY: Decreased breath sounds bilaterally, no rales/rhonchi/wheezes GI: obese abdomen, BS positive in 4 quadrants, soft, nontender, nondistended, no rebound or guarding, no organomegaly : swollen scrotum- decreasing slowly, mccarthy cath in place MUSCULOSKELETAL: Normal ROM. No cyanosis, clubbing, swelling, joint deformity, +3 pitting lower ext edema up to abdomen- improving slowly INTEGUMENTARY: red, warm skin under pannuses, in groin- improving- nontender. Skin tear on right elbow. Hardened, discolored skin on b/l lower ext likely from PVD. No rashes, no lesions NEUROLOGIC: Cranial Nerves II-XII are intact, no focal deficits PSYCHIATRIC: Mood and affect are normal LABORATORY DATA: Please see below MICROBIOLOGY: BCx x 2 sets: NG UCx: likely contaminated IMAGING: Right knee XR: 1. No acute fracture or dislocation of the right knee. 2. Tricompartment degenerative changes are visualized. CT abd/pelvis: 1. Right sided nephrolithiasis and staghorn calculi again seen. Fullness of the right renal pelvis and calices but no ureteral stones or hydroureter identified. 2. Large midline ventral hernia containing multiple loops of small bowel without signs of obstruction or strangulation, similar to the prior exam. 3. Small bilateral pleural effusions persist. There is new patchy consolidation in the lung bases, especially the right middle lobe and right lower lobe, probably due to pneumonia, but not fully assessed on this exam. 4. Fairly diffuse, nonspecific subcutaneous tissue edema, increased from the prior exam. CXR: Diffuse bilateral infiltrates. ASSESSMENT: 64-year-old male with past medical history of atrial fibrillation on xarelto, insomnia, depression, morbid obesity, lower ext swelling, ? PVD admitted for generalized weakness possibly 2/2 to community acquired pneumonia, urinary tract infection. PLAN: Lower extremity swelling, lymphedema, anasarca -Neg 5.7 L overnight -Mccarthy placed -There is a major discrepancy between beds patient has been weighed on. Addressed. -C/w lasix 40 BID as Cr holding -Daily wt, monitor U/O closely, low salt diet, fluid restriction 1800 cc daily Generalized weakness likely multifactorial to community acquired PNA, baseline deconditioning -Multiple falls over the past several weeks, at baseline uses walker but has lift chair and walks independently -Lives alone with gf but she helps with activities of daily living -PT: pt demonstrates poor safety awareness at times but is very motivated to get OOB; unfortunately due the size of the patient it is not very safe to get patient OOB at this time. -C/w PT/OT after weekend -Please see below for treatment of individual issues Community acquired pneumonia -Saturating well on RA -WBC wnl, afebrile, LA wnl -CXR: bilateral infiltrates -BCx NG , sputum culture unable to be collected -C/w ceftriaxone, doxycycline (Day 4) Difficulty urinating / controlling urine, ? urinary obstruction vs. incontinence -Mccarthy placed by Dr. Live who states he would likely need for period of time Yeast infection abdominal pannus, groin -Likely 2/2 to incontinence -Nystatin powder Right knee pain poss 2/2 to chronic degenerative changes-resolved -XR knee: no acute fracture -No pain on palpation on exam, no increased swelling of right knee compared to l eft -Remains unsteady on feet -PT/OT Atrial fibrillation on xarelto -Rate controlled -C/w BB, xarelto Insomnia -C/w home med Depression. -Stable -C/w home med Anemia -Chronic, no s/s of bleeding -CBC daily Yeast infection, abd and groin -Likely worsened by morbid obesity and urinary incontinence -Nystatin powder Decubitus ulcers, Stage II buttocks -Appear clean, not requiring debridement -Wound care, offloading whenever possible -Consider Dr. Knight consult after weekend Morbid obesity -BMPI >70 -Complicating care -F/u with PCP DVT px -Xarelto DISPOSITION: Admitted under inpatient status. PT/OT. Patient would like to go home when medically improved. VS, I&O, 24H, Candice Vital Signs/I&O Vital Signs Date Time Temp Pulse Resp B/P (MAP) Pulse Ox O2 Delivery O2 Flow Rate FiO2 05/27/20 14:00 98.5 71 18 117/65 (82) 95 Room Air I&O- Last 24 Hours up to 6 AM 05/27/20 06:00 Intake Total 660 ml Output Total 6100 ml Balance -5440 ml Laboratory Data 24H LABS Laboratory Tests 2 05/27/20 06:27: Nucleated Red Blood Cells % (auto) 0.0, Anion Gap 5L, Glomerular Filtration Rate > 60.0, Calcium Level 7.7L, Total Bilirubin 0.5, Aspartate Amino Transf (AST/SGOT) 33, Alanine Aminotransferase (ALT/SGPT) 17, Alkaline Phosphatase 183H, Total Protein 6.6, Albumin 2.3L, Albumin/Globulin Ratio 0.5 CBC/BMP Laboratory Tests 05/27/20 06:27 Microbiology Microbiology 05/24/20 Blood Culture - Preliminary, Resulted No Growth after 72 hours. All specime... 05/24/20 Blood Culture - Preliminary, Resulted No Growth after 72 hours. All specime... 05/24/20 Urine Culture - Final, Complete Current Medications Current Medications Medications (Trade) Dose Ordered Sig/Anne Route PRN Reason Start Time Stop Time Status Last Admin Dose Admin Acetaminophen (Tylenol Tab) 650 mg Q4H PRN PO PAIN OR FEVER 05/24/20 07:45 05/26/20 20:38 Acetaminophen (Tylenol Tab) 650 mg Q6HP PRN PO PAIN / FEVER 05/24/20 13:00 Ceftriaxone Sodium 1 gm/ Dextrose 50 ml @ 100 mls/hr Q24H IV 05/24/20 11:00 05/27/20 11:23 Doxycycline Hyclate (Vibramycin) 100 mg BID PO 05/24/20 09:00 05/27/20 09:43 Enoxaparin Sodium (Lovenox) 40 mg DAILY SC 05/24/20 09:00 05/24/20 08:39 DC Furosemide (LASIX injection) 40 mg BID@0900,1700 IV 05/26/20 09:00 05/27/20 17:40 Furosemide (LASIX injection) 40 mg DAILY IV 05/24/20 09:00 05/25/20 07:58 DC 05/24/20 09:00 Furosemide (LASIX injection) 60 mg DAILY IV 05/25/20 09:00 05/26/20 08:20 DC 05/25/20 09:26 Home Med (Med Rec Complete!) ASDIRECTED XX 05/24/20 05:15 05/24/20 05:17 DC Metoprolol Succinate (TopROL XL) 50 mg QHS PO 05/24/20 21:00 05/26/20 20:37 Morphine Sulfate (Morphine Sulfate Inj) 4 mg Q30M PRN IV SEVERE PAIN (PS 8-10) 05/24/20 00:15 05/24/20 12:51 DC 05/24/20 00:20 Nystatin (Mycostatin Powder, Nystop) 1 dose TID PRN TOP RASH 05/24/20 07:45 05/24/20 17:46 Potassium Chloride (Micro-K Extencaps) 30 meq BID PO 05/26/20 09:00 05/27/20 09:42 Potassium Chloride (Micro-K Extencaps) 40 meq DAILY PO 05/25/20 09:00 05/26/20 08:19 DC 05/25/20 09:26 Ramelteon (Rozerem) 8 mg QHS PRN PO INSOMNIA 05/26/20 19:30 05/26/20 20:37 Rivaroxaban (Xarelto) 20 mg QHS PO 05/24/20 21:00 05/26/20 20:37 Sertraline HCl (Zoloft) 100 mg QHS PO 05/24/20 21:00 05/26/20 20:37 Allergies Coded Allergies: No Known Allergies (Verified , 07/12/07) Anette Best MD May 27, 2020 18:34
[2020-05-27] MEDS: METOPROLOL SUCC (TopROL XL) 50MG **XL** TAB PO SCH (21:00)
[2020-05-27] MEDS: RIVAROXABAN 20 MG TAB (XARELTO) PO SCH (21:44)
[2020-05-27] MEDS: SERTRALINE 100 MG TAB PO SCH (21:44)
[2020-05-27] MEDS: RAMELTEON 8 MG TAB (ROZEREM) PO PRN (21:44)
[2020-05-27] MEDS: ACETAMINOPHEN TAB 650MG DOSE (2X325MG) PO PRN (21:46)
[2020-05-27 22:00] VITALS: BP 105/65
[2020-05-28 06:00] VITALS: BP 109/66
[2020-05-28 06:28] LABS: HEMATOCRIT 34.7 % (42.0-52.0); HEMOGLOBIN 10.4 g/dl (13.5-17.5); MEAN CORPUSCULAR HEMOGLOBIN 29.5 pg (27.0-33.0); MEAN CORPUSCULAR VOLUME 98.3 fl (80.0-96.0); PLATELET COUNT, AUTOMATED 148 10^3/uL (150-450); RED BLOOD COUNT 3.53 10^6/uL (4.30-6.10); WHITE BLOOD COUNT 7.2 10^3/uL (4.0-10.0)
[2020-05-28 06:56] LABS: ALBUMIN 2.3 GM/DL (3.2-5.2); ALT/SGPT 19 U/L (12-78); BILIRUBIN,TOTAL 0.6 MG/DL (0.2-1.0); BLOOD UREA NITROGEN 16 MG/DL (7-18); CARBON DIOXIDE LEVEL 37 MEQ/L (21-32); CHLORIDE LEVEL 104 MEQ/L (98-107); CREATININE FOR GFR 0.78 MG/DL (0.70-1.30); GLOMERULAR FILTRATION RATE > 60.0 (>49); GLUCOSE, FASTING 89 MG/DL (70-100); POTASSIUM SERUM 3.6 MEQ/L (3.5-5.1); SODIUM LEVEL 143 MEQ/L (136-145); TOTAL PROTEIN 6.6 GM/DL (6.4-8.2)
[2020-05-28] MEDS: DOXYCYCLINE HYCLATE 100MG TABLET PO SCH ×2 (08:57→21:29)
[2020-05-28] MEDS: POTASSIUM CHLORIDE 10 MEQ SR TABLET PO SCH ×2 (08:57→21:30)
[2020-05-28] MEDS: FUROSEMIDE 40MG/4ML VIAL (J1940) IV SCH ×2 (08:58→17:11)
[2020-05-28] MEDS: cefTRIAXone SOD 1 GM in D5W MINI-BAG PLUS 50 ML IV SCH (10:44)
[2020-05-28] MEDS: VANICREAM MOISTURIZING SKIN CREAM 113GM TUBE TOP SCH ×2 (10:44→21:29)
[2020-05-28 14:00] VITALS: BP 111/65
--- NOTE | 2020-05-28 17:49 | IPNPDOC ---
Date Seen The patient was seen on 05/28/20. Progress Note SUBJECTIVE: Neg fluid balance 4.1 L/24H, Neg >11L since admission. Swelling decreasing with diuresis BID and fluid restriction. Denies increased shortness of breath, chest pain. OBJECTIVE: PHYSICAL EXAMINATION: VS: Please see below CONSTITUTIONAL: Resting in bed, AAO x 3 EYES: PERRLA, EOM intact HENT, MOUTH: Normocephalic, atraumatic, moist mucous membranes NECK: SUPPLE, no JVD, no lymphadenopathy, no carotid bruit CV: irregularly irregular rhythm, S1S2 normal, no murmurs/rubs/gallops RESPIRATORY: Decreased breath sounds bilaterally, no rales/rhonchi/wheezes GI: obese abdomen, BS positive in 4 quadrants, soft, nontender, nondistended, no rebound or guarding, no organomegaly : swollen scrotum- decreasing slowly, mccarthy cath in place MUSCULOSKELETAL: Normal ROM. No cyanosis, clubbing, swelling, joint deformity, +3 pitting lower ext edema up to abdomen- improving slowly INTEGUMENTARY: red, warm skin under pannuses, in groin- improving- nontender. Skin tear on right elbow. Hardened, discolored skin on b/l lower ext likely from PVD. No rashes, no lesions NEUROLOGIC: Cranial Nerves II-XII are intact, no focal deficits PSYCHIATRIC: Mood and affect are normal LABORATORY DATA: Please see below MICROBIOLOGY: BCx x 2 sets: NG UCx: likely contaminated IMAGING: Right knee XR: 1. No acute fracture or dislocation of the right knee. 2. Tricompartment degenerative changes are visualized. CT abd/pelvis: 1. Right sided nephrolithiasis and staghorn calculi again seen. Fullness of the right renal pelvis and calices but no ureteral stones or hydroureter identified. 2. Large midline ventral hernia containing multiple loops of small bowel without signs of obstruction or strangulation, similar to the prior exam. 3. Small bilateral pleural effusions persist. There is new patchy consolidation in the lung bases, especially the right middle lobe and right lower lobe, probably due to pneumonia, but not fully assessed on this exam. 4. Fairly diffuse, nonspecific subcutaneous tissue edema, increased from the prior exam. CXR: Diffuse bilateral infiltrates. ASSESSMENT: 64-year-old male with past medical history of atrial fibrillation on xarelto, insomnia, depression, morbid obesity, lower ext swelling, ? PVD admitted for generalized weakness possibly 2/2 to community acquired pneumonia, urinary tract infection. PLAN: Lower extremity swelling, lymphedema, anasarca -Neg 4.1 L/24H, Neg >11 L fluid since admission -Diffuse swelling is improving slowly -Mccarthy in placed -There is a major discrepancy between beds patient has been weighed on- today it says -6 kg over 24H -C/w lasix 40 BID as Cr holding -Daily wt, monitor U/O closely, low salt diet, fluid restriction 1800 cc daily Generalized weakness likely multifactorial to community acquired PNA, baseline deconditioning -Multiple falls over the past several weeks, at baseline uses walker but has lift chair and walks independently -Lives alone with gf but she helps with activities of daily living -PT: c/w rehab is suggested -C/w PT/OT to see if patient progresses. -Patient is adamant about returning home, is refusing rehab -Please see below for treatment of individual issues Community acquired pneumonia -Saturating well on RA -WBC wnl, afebrile, LA wnl -CXR: bilateral infiltrates -BCx NG , sputum culture unable to be collected -C/w ceftriaxone, doxycycline (Day 5) Difficulty urinating / controlling urine, ? urinary obstruction vs. incontinence -Mccarthy placed by Dr. Live who states he would likely need for period of time after discharge -Would recommend having follow up in place prior to discharge Yeast infection abdominal pannus, groin -Likely 2/2 to incontinence -improving since mccarthy placed -Nystatin powder Atrial fibrillation on xarelto -Rate controlled -C/w BB, xarelto Insomnia -C/w home med Depression. -Stable -C/w home med Anemia/ thrombocytopenia -Chronic, no s/s of bleeding -CBC daily Yeast infection, abd and groin -Likely worsened by morbid obesity and urinary incontinence -Nystatin powder Decubitus ulcers, Stage II buttocks -Appear clean, not requiring debridement -Wound care, offloading whenever possible -Has air mattress -If worsens, consider [facility] consult. Morbid obesity -BMPI >70 -Complicating care -F/u with PCP DVT px -Xarelto Resolved issues: Right knee pain poss 2/2 to chronic degenerative changes DISPOSITION: Admitted under inpatient status. PT/OT. Patient would like to go home when medically improved. VS, I&O, 24H, Candice Vital Signs/I&O Vital Signs Date Time Temp Pulse Resp B/P (MAP) Pulse Ox O2 Delivery O2 Flow Rate FiO2 05/28/20 14:00 97.4 63 20 111/65 (80) 97 Room Air I&O- Last 24 Hours up to 6 AM 05/28/20 06:00 Intake Total 1500 ml Output Total 5950 ml Balance -4450 ml Laboratory Data 24H LABS Laboratory Tests 2 05/28/20 06:14: Nucleated Red Blood Cells % (auto) 0.0, Anion Gap 2L, Glomerular Filtration Rate > 60.0, Calcium Level 8.0L, Total Bilirubin 0.6, Aspartate Amino Transf (AST/SGOT) 37, Alanine Aminotransferase (ALT/SGPT) 19, Alkaline Phosphatase 186H, Total Protein 6.6, Albumin 2.3L, Albumin/Globulin Ratio 0.5 CBC/BMP Laboratory Tests 05/28/20 06:14 Microbiology Microbiology 05/24/20 Blood Culture - Preliminary, Resulted No Growth after 72 hours. All specime... 05/24/20 Blood Culture - Preliminary, Resulted No Growth after 72 hours. All specime... 05/24/20 Urine Culture - Final, Complete Current Medications Current Medications Medications (Trade) Dose Ordered Sig/Anne Route PRN Reason Start Time Stop Time Status Last Admin Dose Admin Acetaminophen (Tylenol Tab) 650 mg Q4H PRN PO PAIN OR FEVER 05/24/20 07:45 05/27/20 21:46 Acetaminophen (Tylenol Tab) 650 mg Q6HP PRN PO PAIN / FEVER 05/24/20 13:00 Cefdinir (Omnicef) 300 mg BID PO 05/28/20 21:00 Ceftriaxone Sodium 1 gm/ Dextrose 50 ml @ 100 mls/hr Q24H IV 05/24/20 11:00 05/28/20 15:48 DC 05/28/20 10:44 Doxycycline Hyclate (Vibramycin) 100 mg BID PO 05/24/20 09:00 05/28/20 08:57 Emollient Cream (Vanicream) Apply to lower ext BID TOP 05/28/20 09:00 05/28/20 10:44 Enoxaparin Sodium (Lovenox) 40 mg DAILY SC 05/24/20 09:00 05/24/20 08:39 DC Furosemide (LASIX injection) 40 mg BID@0900,1700 IV 05/26/20 09:00 05/28/20 17:11 Furosemide (LASIX injection) 40 mg DAILY IV 05/24/20 09:00 05/25/20 07:58 DC 05/24/20 09:00 Furosemide (LASIX injection) 60 mg DAILY IV 05/25/20 09:00 05/26/20 08:20 DC 05/25/20 09:26 Home Med (Med Rec Complete!) ASDIRECTED XX 05/24/20 05:15 05/24/20 05:17 DC Metoprolol Succinate (TopROL XL) 50 mg QHS PO 05/24/20 21:00 05/26/20 20:37 Morphine Sulfate (Morphine Sulfate Inj) 4 mg Q30M PRN IV SEVERE PAIN (PS 8-10) 05/24/20 00:15 05/24/20 12:51 DC 05/24/20 00:20 Nystatin (Mycostatin Powder, Nystop) 1 dose TID PRN TOP RASH 05/24/20 07:45 05/24/20 17:46 Potassium Chloride (Micro-K Extencaps) 30 meq BID PO 05/26/20 09:00 05/28/20 08:57 Potassium Chloride (Micro-K Extencaps) 40 meq DAILY PO 05/25/20 09:00 05/26/20 08:19 DC 05/25/20 09:26 Ramelteon (Rozerem) 8 mg QHS PRN PO INSOMNIA 05/26/20 19:30 05/27/20 21:44 Rivaroxaban (Xarelto) 20 mg QHS PO 05/24/20 21:00 05/27/20 21:44 Sertraline HCl (Zoloft) 100 mg QHS PO 05/24/20 21:00 05/27/20 21:44 Allergies Coded Allergies: No Known Allergies (Verified , 07/12/07) Anette Best MD May 28, 2020 17:49
[2020-05-28] MEDS: ACETAMINOPHEN TAB 650MG DOSE (2X325MG) PO PRN (21:29)
[2020-05-28] MEDS: RAMELTEON 8 MG TAB (ROZEREM) PO PRN (21:29)
[2020-05-28] MEDS: CEFDINIR 300 MG CAP (OMNICEF) PO SCH (21:29)
[2020-05-28] MEDS: RIVAROXABAN 20 MG TAB (XARELTO) PO SCH (21:29)
[2020-05-28] MEDS: SERTRALINE 100 MG TAB PO SCH (21:29)
[2020-05-28] MEDS: METOPROLOL SUCC (TopROL XL) 50MG **XL** TAB PO SCH (21:30)
[2020-05-28 22:00] VITALS: BP 114/64
[2020-05-29 06:00] VITALS: BP 114/64
[2020-05-29 08:13] LABS: HEMATOCRIT 35.3 % (42.0-52.0); MEAN CORPUSCULAR HEMOGLOBIN 30.5 pg (27.0-33.0); MEAN CORPUSCULAR HGB CONC 31.2 g/dl (32.0-36.5); MEAN CORPUSCULAR VOLUME 97.8 fl (80.0-96.0); PLATELET COUNT, AUTOMATED 158 10^3/uL (150-450); RED BLOOD COUNT 3.61 10^6/uL (4.30-6.10); WHITE BLOOD COUNT 7.5 10^3/uL (4.0-10.0)
[2020-05-29] MEDS: DOXYCYCLINE HYCLATE 100MG TABLET PO SCH ×2 (08:33→21:32)
[2020-05-29] MEDS: POTASSIUM CHLORIDE 10 MEQ SR TABLET PO SCH ×2 (08:33→21:33)
[2020-05-29] MEDS: CEFDINIR 300 MG CAP (OMNICEF) PO SCH ×2 (08:33→21:32)
[2020-05-29] MEDS: FUROSEMIDE 40MG/4ML VIAL (J1940) IV SCH ×2 (08:33→16:43)
[2020-05-29] MEDS: VANICREAM MOISTURIZING SKIN CREAM 113GM TUBE TOP SCH ×2 (08:34→21:34)
[2020-05-29 08:47] LABS: ALBUMIN 2.3 GM/DL (3.2-5.2); ALT/SGPT 18 U/L (12-78); BILIRUBIN,TOTAL 0.5 MG/DL (0.2-1.0); BLOOD UREA NITROGEN 15 MG/DL (7-18); CALCIUM LEVEL 8.1 MG/DL (8.8-10.2); CARBON DIOXIDE LEVEL 34 MEQ/L (21-32); CHLORIDE LEVEL 102 MEQ/L (98-107); CREATININE FOR GFR 0.75 MG/DL (0.70-1.30); GLOMERULAR FILTRATION RATE > 60.0 (>49); GLUCOSE, FASTING 103 MG/DL (70-100); POTASSIUM SERUM 3.5 MEQ/L (3.5-5.1); SODIUM LEVEL 141 MEQ/L (136-145); TOTAL PROTEIN 6.6 GM/DL (6.4-8.2)
--- NOTE | 2020-05-29 13:55 | IPNPDOC ---
Text Note Date of Service The patient was seen on 05/29/20. NOTE SUBJECTIVE: Patient seen and examined at bedside. No acute overnight events reported. Patient has no new medical complaints this morning. OBJECTIVE: VS: Please see below General: NAD, lying comfortably in bed HEENT: NC/AT, edentulous Lungs: CTA B/L Heart: +S1S2, RRR Abd: soft, obese, NT, ND, +BS Ext: chronic venous stasis changes ASSESSMENT: 64-year-old male with PMHx afib/Xarelto, insomnia, depression, morbid obesity, lower ext swelling, ? PVD admitted for generalized weakness possibly 2/2 to community acquired pneumonia, urinary tract infection. PLAN: #Lower extremity swelling, lymphedema, anasarca -Neg 4.1 L/24H, Neg >11 L fluid since admission -Diffuse swelling is improving slowly -Mccarthy in placed -There is a major discrepancy between beds patient has been weighed on- today it says -6 kg over 24H -C/w lasix 40 BID as Cr holding -Daily wt, monitor U/O closely, low salt diet, fluid restriction 1800 cc daily #Generalized weakness likely multifactorial to community acquired PNA, baseline deconditioning -Multiple falls over the past several weeks, at baseline uses walker but has lift chair and walks independently -Lives alone with gf but she helps with activities of daily living -PT: c/w rehab is suggested -C/w PT/OT to see if patient progresses. -Patient is adamant about returning home, is refusing rehab -Please see below for treatment of individual issues #Community acquired pneumonia -Saturating well on RA -WBC wnl, afebrile, LA wnl -CXR: bilateral infiltrates -BCx NG , sputum culture unable to be collected -C/w ceftriaxone, doxycycline (Day 6) #Difficulty urinating / controlling urine, ? urinary obstruction vs. incontine nce -Mccarthy placed by Dr. Live who states he would likely need for period of time after discharge -Would recommend having follow up in place prior to discharge #Yeast infection abdominal pannus, groin -Likely 2/2 to incontinence -improving since mccarthy placed -Nystatin powder #Atrial fibrillation on xarelto -Rate controlled -C/w BB, xarelto #Insomnia -C/w home med #Depression. -Stable -C/w home med #Anemia/ thrombocytopenia -Chronic, no s/s of bleeding -CBC daily #Yeast infection, abd and groin -Likely worsened by morbid obesity and urinary incontinence -Nystatin powder #Decubitus ulcers, Stage II buttocks -Appear clean, not requiring debridement -Wound care, offloading whenever possible -Has air mattress -If worsens, consider [facility] consult. #Morbid obesity -BMPI >70 -Complicating care -F/u with PCP #DVT px -Xarelto Resolved issues: Right knee pain poss 2/2 to chronic degenerative changes DISPOSITION: Admitted under inpatient status. PT/OT. Patient would like to go home when medically improved and cleared by PT. VS,[place], I+O VS, [place]ja[place], I+O Laboratory Tests 05/29/20 07:52 Vital Signs Date Time Temp Pulse Resp B/P (MAP) Pulse Ox O2 Delivery O2 Flow Rate FiO2 05/29/20 06:00 97.4 62 18 114/64 (81) 92 Room Air I&O- Last 24 Hours up to 6 AM 05/29/20 06:00 Intake Total 1980 ml Output Total 5025 ml Balance -3045 ml ESME CALVILLO MD May 29, 2020 13:54
[2020-05-29 14:00] VITALS: BP 113/64
[2020-05-29] MEDS: ACETAMINOPHEN TAB 650MG DOSE (2X325MG) PO PRN (19:38)
[2020-05-29] MEDS: RAMELTEON 8 MG TAB (ROZEREM) PO PRN (21:32)
[2020-05-29] MEDS: RIVAROXABAN 20 MG TAB (XARELTO) PO SCH (21:32)
[2020-05-29] MEDS: SERTRALINE 100 MG TAB PO SCH (21:32)
[2020-05-29] MEDS: METOPROLOL SUCC (TopROL XL) 50MG **XL** TAB PO SCH (21:33)
[2020-05-29 22:00] VITALS: BP 114/64
[2020-05-30 04:00] VITALS: BP 113/65
[2020-05-30] MEDS: ACETAMINOPHEN TAB 650MG DOSE (2X325MG) PO PRN (06:42)
[2020-05-30 07:06] LABS: HEMATOCRIT 34.1 % (42.0-52.0); HEMOGLOBIN 10.4 g/dl (13.5-17.5); MEAN CORPUSCULAR HEMOGLOBIN 29.1 pg (27.0-33.0); MEAN CORPUSCULAR HGB CONC 30.5 g/dl (32.0-36.5); MEAN CORPUSCULAR VOLUME 95.5 fl (80.0-96.0); PLATELET COUNT, AUTOMATED 149 10^3/uL (150-450); RED BLOOD COUNT 3.57 10^6/uL (4.30-6.10); WHITE BLOOD COUNT 7.8 10^3/uL (4.0-10.0)
[2020-05-30 07:29] LABS: ALBUMIN 2.4 GM/DL (3.2-5.2); ALT/SGPT 20 U/L (12-78); BILIRUBIN,TOTAL 0.7 MG/DL (0.2-1.0); BLOOD UREA NITROGEN 16 MG/DL (7-18); CALCIUM LEVEL 8.1 MG/DL (8.8-10.2); CARBON DIOXIDE LEVEL 36 MEQ/L (21-32); CHLORIDE LEVEL 102 MEQ/L (98-107); CREATININE FOR GFR 0.73 MG/DL (0.70-1.30); GLOMERULAR FILTRATION RATE > 60.0 (>49); GLUCOSE, FASTING 88 MG/DL (70-100); POTASSIUM SERUM 3.6 MEQ/L (3.5-5.1); SODIUM LEVEL 139 MEQ/L (136-145); TOTAL PROTEIN 6.7 GM/DL (6.4-8.2)
[2020-05-30] MEDS: FUROSEMIDE 40MG/4ML VIAL (J1940) IV SCH ×2 (08:25→17:54)
[2020-05-30] MEDS: DOXYCYCLINE HYCLATE 100MG TABLET PO SCH ×2 (08:26→21:16)
[2020-05-30] MEDS: CEFDINIR 300 MG CAP (OMNICEF) PO SCH ×2 (08:26→21:16)
[2020-05-30] MEDS: POTASSIUM CHLORIDE 10 MEQ SR TABLET PO SCH ×2 (08:26→21:16)
[2020-05-30] MEDS: VANICREAM MOISTURIZING SKIN CREAM 113GM TUBE TOP SCH ×2 (09:13→21:17)
--- NOTE | 2020-05-30 11:35 | IPNPDOC ---
Text Note Date of Service The patient was seen on 05/30/20. NOTE SUBJECTIVE: Patient seen and examined at bedside. No acute overnight events reported. Patient has no new medical complaints this morning. OBJECTIVE: VS: Please see below General: NAD, lying comfortably in bed HEENT: NC/AT, edentulous Lungs: CTA B/L Heart: +S1S2, RRR Abd: soft, obese, NT, ND, +BS Ext: chronic venous stasis changes ASSESSMENT: 64-year-old male with PMHx afib/Xarelto, insomnia, depression, morbid obesity, lower ext swelling, ? PVD admitted for generalized weakness possibly 2/2 to community acquired pneumonia, urinary tract infection. PLAN: #Lower extremity swelling, lymphedema, anasarca -Diffuse swelling is improving slowly -Mccarthy placed -C/w lasix 40 BID as Cr holding -Daily wt, monitor U/O closely, low salt diet, fluid restriction 1800 cc daily #Generalized weakness likely multifactorial to community acquired PNA, baseline deconditioning -Multiple falls over the past several weeks, at baseline uses walker but has lift chair and walks independently -Lives alone with gf but she helps with activities of daily living -PT: c/w rehab is suggested -C/w PT/OT to see if patient progresses. -Patient is adamant about returning home, is refusing rehab #Community acquired pneumonia -Saturating well on RA -WBC wnl, afebrile, LA wnl -CXR: bilateral infiltrates -BCx NG , sputum culture unable to be collected -C/w ceftriaxone, doxycycline (Day 7) - will dc today #Difficulty urinating / controlling urine, ? urinary obstruction vs. incontinence -Mccarthy placed by Dr. Live who states he would likely need for period of time after discharge -Would recommend having follow up in place prior to discharge #Yeast infection abdominal pannus, groin -Likely 2/2 to incontinence -improving since mccarthy placed -Nystatin powder #Atrial fibrillation on xarelto -Rate controlled -C/w BB, xarelto #Insomnia -C/w home med #Depression. -Stable -C/w home med #Anemia/ thrombocytopenia -Chronic, no s/s of bleeding -CBC daily #Yeast infection, abd and groin -Likely worsened by morbid obesity and urinary incontinence -Nystatin powder #Decubitus ulcers, Stage II buttocks -Appear clean, not requiring debridement -Wound care, offloading whenever possible -Has air mattress -If worsens, consider [facility] consult. #Morbid obesity -BMPI >70 -Complicating care -F/u with PCP #DVT px -Xarelto Resolved issues: Right knee pain poss 2/2 to chronic degenerative changes DISPOSITION: Admitted under inpatient status. PT/OT. Patient would like to go home when medically improved and cleared by PT. VS,Fishbone, I+O VS, Fishbone, I+O Laboratory Tests 05/30/20 06:34 Vital Signs Date Time Temp Pulse Resp B/P (MAP) Pulse Ox O2 Delivery O2 Flow Rate FiO2 05/30/20 04:00 97.4 61 18 113/65 (81) 95 Room Air I&O- Last 24 Hours up to 6 AM 05/30/20 06:00 Intake Total 1920 ml Output Total 900 ml Balance 1020 ml ESME CALVILLO MD May 30, 2020 11:35
[2020-05-30 14:00] VITALS: BP 109/65
[2020-05-30] MEDS: RIVAROXABAN 20 MG TAB (XARELTO) PO SCH (21:16)
[2020-05-30] MEDS: SERTRALINE 100 MG TAB PO SCH (21:16)
[2020-05-30] MEDS: METOPROLOL SUCC (TopROL XL) 50MG **XL** TAB PO SCH (21:17)
[2020-05-30 22:00] VITALS: BP 111/64
[2020-05-31 06:00] VITALS: BP 106/55
[2020-05-31 07:36] LABS: HEMATOCRIT 35.6 % (42.0-52.0); HEMOGLOBIN 11.1 g/dl (13.5-17.5); MEAN CORPUSCULAR HEMOGLOBIN 29.6 pg (27.0-33.0); MEAN CORPUSCULAR HGB CONC 31.2 g/dl (32.0-36.5); MEAN CORPUSCULAR VOLUME 94.9 fl (80.0-96.0); PLATELET COUNT, AUTOMATED 150 10^3/uL (150-450); RED BLOOD COUNT 3.75 10^6/uL (4.30-6.10); WHITE BLOOD COUNT 7.5 10^3/uL (4.0-10.0)
[2020-05-31 08:04] LABS: ALBUMIN 2.6 GM/DL (3.2-5.2); ALT/SGPT 22 U/L (12-78); BILIRUBIN,TOTAL 0.7 MG/DL (0.2-1.0); BLOOD UREA NITROGEN 14 MG/DL (7-18); CALCIUM LEVEL 8.1 MG/DL (8.8-10.2); CARBON DIOXIDE LEVEL 33 MEQ/L (21-32); CHLORIDE LEVEL 101 MEQ/L (98-107); CREATININE FOR GFR 0.71 MG/DL (0.70-1.30); GLOMERULAR FILTRATION RATE > 60.0 (>49); GLUCOSE, FASTING 87 MG/DL (70-100); POTASSIUM SERUM 3.9 MEQ/L (3.5-5.1); SODIUM LEVEL 142 MEQ/L (136-145)
[2020-05-31] MEDS: POTASSIUM CHLORIDE 10 MEQ SR TABLET PO SCH ×2 (09:27→21:30)
[2020-05-31] MEDS: DOXYCYCLINE HYCLATE 100MG TABLET PO SCH ×2 (09:27→21:30)
[2020-05-31] MEDS: CEFDINIR 300 MG CAP (OMNICEF) PO SCH ×2 (09:27→21:30)
[2020-05-31] MEDS: FUROSEMIDE 40MG/4ML VIAL (J1940) IV SCH ×2 (09:28→17:33)
[2020-05-31] MEDS: VANICREAM MOISTURIZING SKIN CREAM 113GM TUBE TOP SCH ×2 (09:28→21:31)
--- NOTE | 2020-05-31 12:31 | IPNPDOC ---
Text Note Date of Service The patient was seen on 05/31/20. NOTE SUBJECTIVE: Patient seen and examined at bedside. No acute overnight events reported. Patient has no new medical complaints this morning. OBJECTIVE: VS: Please see below General: NAD, lying comfortably in bed HEENT: NC/AT, edentulous Lungs: CTA B/L Heart: +S1S2, RRR Abd: soft, obese, NT, ND, +BS Ext: chronic venous stasis changes ASSESSMENT: 64-year-old male with PMHx afib/Xarelto, insomnia, depression, morbid obesity, lower ext swelling, ? PVD admitted for generalized weakness possibly 2/2 to community acquired pneumonia, urinary tract infection. PLAN: #Lower extremity swelling, lymphedema, anasarca -Diffuse swelling is improving slowly -Mccarthy placed -C/w lasix 40 BID -Daily wt, monitor U/O closely, low salt diet, fluid restriction 1800 cc daily #Generalized weakness likely multifactorial to community acquired PNA, baseline deconditioning -Multiple falls over the past several weeks, at baseline uses walker but has lift chair and walks independently -Lives alone with gf but she helps with activities of daily living -PT: c/w rehab is suggested -C/w PT/OT to see if patient progresses. -Patient is adamant about returning home, is refusing rehab #Community acquired pneumonia -Saturating well on RA -WBC wnl, afebrile, LA wnl -CXR: bilateral infiltrates -BCx NG , sputum culture unable to be collected - continue cefdinir/doxy - day #7 #Difficulty urinating / controlling urine, ? urinary obstruction vs. incontinence -Mccarthy placed by Dr. Live who states he would likely need for period of time after discharge -Would recommend having follow up in place prior to discharge #Yeast infection abdominal pannus, groin -Likely 2/2 to incontinence -improving since mccarthy placed -Nystatin powder #Atrial fibrillation on xarelto -Rate controlled -C/w BB, xarelto #Insomnia -C/w home med #Depression. -Stable -C/w home med #Anemia/ thrombocytopenia -Chronic, no s/s of bleeding #Yeast infection, abd and groin -Likely worsened by morbid obesity and urinary incontinence -Nystatin powder #Decubitus ulcers, Stage II buttocks -Appear clean, not requiring debridement -Wound care, offloading whenever possible -Has air mattress #Morbid obesity -BMPI >70 -Complicating care -F/u with PCP #DVT px -Xarelto Resolved issues: Right knee pain poss 2/2 to chronic degenerative changes DISPOSITION: Pending further PT for safe discharge home; home with mccarthy catheter VS,Fishbone, I+O VS, Fishbone, I+O Laboratory Tests 05/31/20 07:00 Vital Signs Date Time Temp Pulse Resp B/P (MAP) Pulse Ox O2 Delivery O2 Flow Rate FiO2 05/31/20 06:00 97.8 61 18 106/55 (72) 95 Room Air I&O- Last 24 Hours up to 6 AM 05/31/20 06:00 Intake Total 840 ml Output Total 2700 ml Balance -1860 ml ESME CALVILLO MD May 31, 2020 12:31
[2020-05-31 14:00] VITALS: BP 99/55
[2020-05-31 20:42] VITALS: BP 113/63
[2020-05-31] MEDS: RIVAROXABAN 20 MG TAB (XARELTO) PO SCH (21:30)
[2020-05-31 21:31] VITALS: BP 113/63
[2020-05-31] MEDS: SERTRALINE 100 MG TAB PO SCH (21:31)
[2020-05-31] MEDS: METOPROLOL SUCC (TopROL XL) 50MG **XL** TAB PO SCH (21:31)
[2020-06-01 05:51] VITALS: BP 112/68
[2020-06-01] MEDS ORDERED: FURO40TA2 PO (09:22)
[2020-06-01] MEDS ORDERED: DOXY100T PO (09:22)
[2020-06-01] MEDS ORDERED: CEFD300CAP PO (09:22)
[2020-06-01] MEDS: CEFDINIR 300 MG CAP (OMNICEF) PO SCH (09:50)
[2020-06-01] MEDS: POTASSIUM CHLORIDE 10 MEQ SR TABLET PO SCH (09:50)
[2020-06-01] MEDS: DOXYCYCLINE HYCLATE 100MG TABLET PO SCH (09:51)
[2020-06-01] MEDS: VANICREAM MOISTURIZING SKIN CREAM 113GM TUBE TOP SCH (09:51)
[2020-06-01] MEDS: FUROSEMIDE 40MG/4ML VIAL (J1940) IV SCH (09:51)
--- NOTE | 2020-06-12 06:37 | DS.PDOC ---
Discharge Summary General Date of Admission May 24, 2020 at 07:32 Date of Discharge 06/01/20 Discharge Summary PROCEDURES PERFORMED DURING STAY: [None]. ADMITTING DIAGNOSES: 1. . DISCHARGE DIAGNOSES: 1. . COMPLICATIONS/CHIEF COMPLAINT: Frequent Falls Generalized Weakness. HISTORY OF PRESENT ILLNESS: Patient is a 64-year-old male with past medical history of atrial fibrillation on xarelto, insomnia, depression, morbid obesity, lower ext swelling, ? PVD who presented to [facility] emergency room for increased weakness. According to the patient's he has having increased difficulty getting up from standing at times and keeping his balance. He has fallen several times over the past several days. He is also called EMS at home 3 times over the past 24 hours due to difficulty maneuvering around his home. He states he has been "out of his medications" but denies issues with paying for his medications. He denies chest spray, increased shortness of breath, fevers, chills, nausea, vomiting, diarrhea, abdominal pain, recent illnesses but does admit to some right knee aching. In the emergency room vital signs were stable. Labs showed low calcium but was corrected with albumin. WBC mildly elevated at 10.8, UA positive. CXR showed bilateral infiltrates. CT abd/pelvis was done for increased abd distention s howing: large midline ventral hernia containing multiple loops of small bowel without signs of obstruction or strangulation, similar to the prior exam, small bilateral pleural effusions persist, new patchy consolidation in the lung bases, especially the right middle lobe and right lower lobe, diffuse, nonspecific subcutaneous tissue edema, increased from the prior exam. XR of ri ght knee: no acute fracture. Patient remained stable on room air had no signs or symptoms of pneumonia clinically. Due to falling several times and having difficulty maneuvering around his home with increased weakness, the patient was admitted for generalized weakness possibly 2/2 to community acquired pneumonia, urinary tract infection. HOSPITAL COURSE: 64-year-old male with PMHx afib/Xarelto, insomnia, depression, morbid obesity, lower ext swelling, ? PVD admitted for generalized weakness possibly 2/2 to community acquired pneumonia, urinary tract infection. #Lower extremity swelling, lymphedema, anasarca -Diffuse swelling is improving slowly -Mccarthy placed -C/w lasix 40 BID -Daily wt, monitor U/O closely, low salt diet, fluid restriction 1800 cc daily #Generalized weakness likely multifactorial to community acquired PNA, baseline deconditioning -Multiple falls over the past several weeks, at baseline uses walker but has lift chair and walks independently -Lives alone with gf but she helps with activities of daily living -PT: c/w rehab is suggested -C/w PT/OT to see if patient progresses. -Patient is adamant about returning home, is refusing rehab #Community acquired pneumonia -Saturating well on RA -WBC wnl, afebrile, LA wnl -CXR: bilateral infiltrates -BCx NG , sputum culture unable to be collected - continue cefdinir/doxy #Difficulty urinating / controlling urine, ? urinary obstruction vs. incontinence -Mccarthy placed by Dr. Live who states he would likely need for period of time after discharge -Would recommend having follow up in place prior to discharge #Yeast infection abdominal pannus, groin -Likely 2/2 to incontinence -improving since mccarthy placed -Nystatin powder #Atrial fibrillation on xarelto -Rate controlled -C/w BB, xarelto #Insomnia -C/w home med #Depression. -Stable -C/w home med #Anemia/ thrombocytopenia -Chronic, no s/s of bleeding #Yeast infection, abd and groin -Likely worsened by morbid obesity and urinary incontinence -Nystatin powder #Decubitus ulcers, Stage II buttocks -Appear clean, not requiring debridement -Wound care, offloading whenever possible -Has air mattress #Morbid obesity -BMI >70 -Complicating care -F/u with PCP #DVT px -Xarelto DISCHARGE MEDICATIONS: Please see below. ALLERGIES: Please see below. PHYSICAL EXAMINATION ON DISCHARGE: VS: Please see below General: NAD, lying comfortably in bed HEENT: NC/AT, edentulous Lungs: CTA B/L Heart: +S1S2, RRR Abd: soft, obese, NT, ND, +BS Ext: chronic venous stasis changes LABORATORY DATA: Please see below. ACTIVITY: [As tolerated]. DISPOSITION: Home Health Service. DISCHARGE INSTRUCTIONS: 1. Follow up with PCP in 3-5 days. 2. Follow up with urology as scheduled or within 5-7 days. 3. 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 DISCHARGE CONDITION: [Stable]. TIME SPENT ON DISCHARGE: 35 minutes. Discharge Medications Scheduled Furosemide (Furosemide) 40 Mg Tablet, 40 MG PO DAILY, (Reported) Metoprolol Succinate (Metoprolol Succinate) 50 Mg Tab.er.24h, 50 MG PO QHS, (Reported) Rivaroxaban (Xarelto) 20 Mg Tablet, 20 MG PO QHS, (Reported) Sertraline HCl (Sertraline HCl) 100 Mg Tablet, 100 MG PO QHS, (Reported) Scheduled PRN Nystatin (Nystatin Powder) 15 Gm Powder, 1 DOSE TOP TID PRN for RASH, (Reported) APPLY TO STOMACH FOLDS AND UNDERARMS Allergies Coded Allergies: No Known Allergies (Verified , 07/12/07) ESME CALVILLO MD Jun 12, 2020 06:37
== END 2020-06-01 14:20 | disposition home health service (06) | DRG 606 ==
LOC: M ED 23:32 → M ED INP 05-24 07:32 → M MS5PR 05-24 10:58
PROVIDERS: ADMIT Internal Medicine; ATTEND Internal Medicine
DX: I89.0 Lymphedema, not elsewhere classified (principal); J18.9 Pneumonia, unspecified organism; N39.0 Urinary tract infection, site not specified; Z68.45 Body mass index [BMI] 70 or greater, adult; I48.91 Unspecified atrial fibrillation; G47.00 Insomnia, unspecified; F32.9 Major depressive disorder, single episode, unspecified; E66.01 Morbid (severe) obesity due to excess calories; L89.322 Pressure ulcer of left buttock, stage 2; L89.312 Pressure ulcer of right buttock, stage 2; I73.9 Peripheral vascular disease, unspecified; D64.9 Anemia, unspecified; D69.6 Thrombocytopenia, unspecified; R32 Unspecified urinary incontinence; R29.6 Repeated falls; Z87.891 Personal history of nicotine dependence; Z96.642 Presence of left artificial hip joint; Z90.49 Acquired absence of other specified parts of digestive tract; B37.2 Candidiasis of skin and nail; Z11.52 Encounter for screening for COVID-19; Z79.01 Long term (current) use of anticoagulants; Z79.899 Other long term (current) drug therapy; Z91.128 Patient's intentional underdosing of medication regimen for other reason

== ENCOUNTER 2020-06-10 08:08 | Inpatient (IN) | payer MEDICARE ==
[~2020-06-10] VITALS: Ht 167.6 cm; Wt 179.0 kg
[~2020-06-10 08:08] MED LIST changes: +CEFD300CAP PO; +DOXY100T PO; +NYST1POW9 TOP; +WARF-22 PO
--- OUTSIDE RECORDS SUMMARY | 2020-06-10 08:59 | CCD | Continuity of Care Document ---
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 (Z96.642) 04-Jun-2020 Status: Active Body mass index [BM I] 60.0-69.9, adult (Z68.44) 04-Jun-2020 Status: Active Personal history of nicotine dependence (Z87.891) 04-Jun-2020 Status: Active History of falling (Z91.81) 04-Jun-2020 Status: Active [facility] (current) use of anticoagulants (Z79.01) 04-Jun-2020 Status: Active Encounter for fitti ng and adjustment of urinary device (Z46.6) 04-Jun-2020 Status: Active Morbid (severe) obe sity due to excess calories (E66.01) 04-Jun-2020 Status: Active Obstructive sleep a pnea (adult) (pediatric) (G47.33) 04-Jun-2020 Status: Active Insomnia, unspecifi ed (G47.00) 04-Jun-2020 Status: Active Unilateral primary osteoarthritis, right hip (M16.11) 04-Jun-2020 Status: Active Spondylosis without myelopathy or radiculopathy, lumbar region (M47.816) 04-Jun-2020 Status: Active Ventral hernia with out obstruction or gangrene (K43.9) 04-Jun-2020 Status: Active Diverticulosis of l arge intestine without perforation or abscess without bleeding (K57.30) 04-Jun-2020 Status: Active Chronic idiopathic constipation (K59.04) 04-Jun-2020 Status: Active Chronic diastolic ( congestive) heart failure (I50.32) 04-Jun-2020 Status: Active Unspecified atrial fibrillation (I48.91) 04-Jun-2020 Status: Active Repeated falls (R29.6) 04-Jun-2020 Status: Active Other retention of urine (R33.8) 04-Jun-2020 Status: Active Calculus of kidney (N20.0) 04-Jun-2020 Status: Active Pneumonia, unspecif ied organism (J18.9) 04-Jun-2020 Status: Active Medications Name Dates Details Doxycycline Hyclate 100 MG Dominik Thomas Inactive Furosemide 40 MG Dominik Thomas* Start : 04-Jun-2020 End : 11-Jun-2020 Inactive Metoprolol Tartrate 50 MG Dominik Thomas* Start : 04-Jun-2020 Active Nystatin Powder apply to stomach folds and underarms as needed, 3x/day. Leigh Thomas Start : 04-Jun-2020 Active Xarelto 20 MG Dominik Thomas* Start : 04-Jun-2020 Active Sertraline HCl 100 MG Dominik Thomas* Start : 04-Jun-2020 Active Acetaminophen take one tablet for pain more than 6/10 q6h. No more than 3,000 mg per day. Leigh Thomas Start : 04-Jun-2020 Active traMADol HCl 50 MG Take 1 to 2 tabs every 4 hours for pain max daily 7 tabs Rylie, Jordan* Start : 26-Jun-2017 End : 16-Jul-2017 Inactive HYDROcodone-Acetaminophen 5-325 MG prn pain, max daily dose 4 tabs/2hrs Rylie, Jordan* Start : 24-Jun-2017 End : 26-Jun-2017 Inactive Tamsulosin HCl 0.4 MG Rylie, Jordan* Start : 24-Jun-2017 End : 16-Jul-2017 Inactive Omeprazole 20 MG Rylie, Jordan* Start : 24-Jun-2017 End : 16-Jul-2017 Inactive Furosemide 40 MG Rylie, Jordan* Start : 24-Jun-2017 End : 16-Jul-2017 Inactive clonazePAM 0.5 MG Rylie, Jordan* Start : 24-Jun-2017 End : 16-Jul-2017 Inactive Levothyroxine Sodium 50 MCG Rylie, Jordan* Start : 24-Jun-2017 End : 16-Jul-2017 Inactive Zolpidem Tartrate 10 MG Rylie, Jordan* Start : 24-Jun-2017 End : 16-Jul-2017 Inactive Aspirin 325 MG Rylie, Jordan* Start : 24-Jun-2017 End : 16-Jul-2017 Inactive Allergies and Adverse Reactions Name Dates Details No Known Drug Allergies (Allergy) Onset : 04-Jun-2020 Status: Active Results Date Description Value Details No Known Results Plan of Care Name Dates Details Instructions Diet:Regular Diet Ins truction Type: Nutrition education Payers * [facility] * [facility]
--- OUTSIDE RECORDS SUMMARY | 2020-06-10 08:59 | CCD ---
Author Author [facility] Organization [facility] Address Unknown Phone Unavailable Care Team Providers Care Cellar Supervisor Name Role Phone Harley Gurrola MD Unavailable Unavailable Harley Gurrola MD Unavailable Unavailable Harlye Gurrola MD Unavailable Unavailable Harley Gurrola MD Unavailable Unavailable Harley Gurrola MD Unavailable Unavailable Harley Gurrola MD Unavailable Unavailable Harley Gurrola MD Unavailable Unavailable Harley Gurrola MD Unavailable Unavailable IzabelaHarley MD Unavailable Unavailable Alexandria BayHarley MD Unavailable Unavailable Alexandria BayHarley MD Unavailable Unavailable IzabelaHarley MD Unavailable Unavailable Alexandria BayHarley MD Unavailable Unavailable Alexandria BayHarley MD Unavailable Unavailable ZiabelaHarley MD Unavailable Unavailable IzabelaHarley MD Unavailable Unavailable Alexandria BayHarley MD Unavailable Unavailable Alexandria BayHarley MD Unavailable Unavailable IzabelaHarley MD Unavailable Unavailable IzabelaHarley MD Unavailable Unavailable IzabelaHarley MD Unavailable Unavailable IzabelaHarley MD Unavailable Unavailable IzabelaHarley MD Unavailable Unavailable Alexandria BayHarley MD Unavailable Unavailable IzabelaHarley MD Unavailable Unavailable Alexandria BayHarley MD Unavailable Unavailable IzabelaHarley MD Unavailable Unavailable Alexandria BayHarley MD Unavailable Unavailable IzabelaHarley MD Unavailable Unavailable IzabelaHarley MD Unavailable Unavailable IzabelaHarley MD Unavailable Unavailable Alexandria BayHarley MD Unavailable Unavailable IzabelaHarley MD Unavailable Unavailable Alexandria BayHarley MD Unavailable Unavailable Alexandria BayHarley MD Unavailable Unavailable IzabelaHarley MD Unavailable Unavailable IzabelaHarley MD Unavailable Unavailable IzabelaHarley MD Unavailable Unavailable Alexandria BayHarley MD Unavailable Unavailable ZiabelaHarley MD Unavailable Unavailable IzabelaHarley MD Unavailable Unavailable IzabelaHarley MD Unavailable Unavailable Alexandria BayHarley MD Unavailable Unavailable IzabelaHarley tate MD Unavailable Unavailable Alexandria BayHarley MD Unavailable Unavailable Alexandria BayHarley MD Unavailable Unavailable IzabelaHarley MD Unavailable Unavailable IzabelaHarley MD Unavailable Unavailable Alexandria BayHarley MD Unavailable Unavailable Alexandria BayHarley MD Unavailable Unavailable IzabelaHarley tate MD Unavailable Unavailable IzabelaHarley MD Unavailable Unavailable IzabelaHarley MD Unavailable Unavailable IzabelaHarley MD Unavailable Unavailable IzabelaHarley MD Unavailable Unavailable Alexandria BayHarley MD Unavailable Unavailable Alexandria BayHarley MD Unavailable Unavailable IzabelaHarley MD Unavailable Unavailable IzabelaHarley MD Unavailable Unavailable Alexandria BayHarley MD Unavailable Unavailable IzabelaHarley MD Unavailable Unavailable Alexandria BayHarley MD Unavailable Unavailable IzabelaHarley MD Unavailable Unavailable Alexandria BayHarley MD Unavailable Unavailable IzabelaHarley MD Unavailable Unavailable IzabelaHarley MD Unavailable Unavailable IzabelaHarley MD Unavailable Unavailable IzabelaHarley MD Unavailable Unavailable Alexandria BayHarley MD Unavailable Unavailable IzabelaHarley MD Unavailable Unavailable Alexandria BayHarley MD Unavailable Unavailable IzabelaHarley MD Unavailable Unavailable IzabelaHarley MD Unavailable Unavailable Alexandria BayHarley MD Unavailable Unavailable IzabelaHarley MD Unavailable Unavailable IzabelaHarley MD Unavailable Unavailable IzabelaHarley MD Unavailable Unavailable Alexandria BayHarley MD Unavailable Unavailable Alexandria BayHarley MD Unavailable Unavailable Izabela F Lanre FIERRO Unavailable Unavailable Alexandria BayHarley MD Unavailable Unavailable Alexandria Bay F Lanre FIERRO Unavailable Unavailable IzabelaHarley MD Unavailable Unavailable IzabelaHarley MD Unavailable Unavailable Alexandria BayHarley MD Unavailable Unavailable IzabelaHarley MD Unavailable Unavailable [...] Unavailable Unavailable Lucila Leach MD Unavailable Unavailable uLcila Leach MD Unavailable Unavailable Lucila Leach MD [...] Nataliia Segura MD Unavailable Unavailable Brock, Jeannette MILK TRUCK DRIVER Unavailable Unavailable Brock, Jeannette MILK TRUCK DRIVER Unavailable Unavailable Brock, Jeannette MILK TRUCK DRIVER Unavailable Unavailable Brock, Jeannette MILK TRUCK DRIVER Unavailable Unavailable Brock, Jeannette MILK TRUCK DRIVER Unavailable Unavailable Brock, Jeannette MILK TRUCK DRIVER Unavailable Unavailable Brock, Jeannette MILK TRUCK DRIVER Unavailable Unavailable Brock, Jeannette MILK TRUCK DRIVER Unavailable Unavailable Brock, Jeannette MILK TRUCK DRIVER Unavailable Unavailable Brock, Jeannette MILK TRUCK DRIVER Unavailable Unavailable Brock, Jeannette MILK TRUCK DRIVER Unavailable Unavailable Brock, Jeannette MILK TRUCK DRIVER Unavailable Unavailable Brock, Jeannette MILK TRUCK DRIVER Unavailable Unavailable Brock, Jeannette MILK TRUCK DRIVER Unavailable Unavailable Brock, Jeannette MILK TRUCK DRIVER Unavailable Unavailable Brock, Jeannette MILK TRUCK DRIVER Unavailable Unavailable Brock, Jeannette MILK TRUCK DRIVER Unavailable Unavailable Brock, Jeannette MILK TRUCK DRIVER Unavailable Unavailable Brock, Jeannette MILK TRUCK DRIVER Unavailable Unavailable Brock, Jeannette MILK TRUCK DRIVER Unavailable Unavailable Brock, Jeannette MILK TRUCK DRIVER Unavailable Unavailable Brock, Jeannette MILK TRUCK DRIVER Unavailable Unavailable Brock, Jeannette MILK TRUCK DRIVER Unavailable Unavailable Brock, Jeannette MILK TRUCK DRIVER Unavailable Unavailable Brock, Jeannette MILK TRUCK DRIVER Unavailable Unavailable Brock, Jeannette MILK TRUCK DRIVER Unavailable Unavailable Brokc, Jeannette MILK TRUCK DRIVER Unavailable Unavailable PICKERAL JR, J MARIAH PA-C Unavailable Unavailable PICKERAL JR, J MARIHA PA-C Unavailable Unavailable PICKERAL JR, J MARIAH [...] J MARIAH PA-C Unavailable Unavailable Ancelmo, Tiffany MILK TRUCK DRIVER Unavailable Unavailable Ancelmo, Tiffany MILK TRUCK DRIVER Unavailable Unavailable Ancelmo, Tiffany MILK TRUCK DRIVER Unavailable Unavailable Ancelmo, Tiffany MILK TRUCK DRIVER Unavailable Unavailable Ancelmo, Tiffany MILK TRUCK DRIVER Unavailable Unavailable Ancelmo, Tiffany MILK TRUCK DRIVER Unavailable Unavailable Ancelmo, Tiffany MILK TRUCK DRIVER Unavailable Unavailable Ancelmo, Tiffany MILK TRUCK DRIVER Unavailable Unavailable Ancelmo, Tiffany MILK TRUCK DRIVER Unavailable Unavailable Ancelmo, Tiffany MILK TRUCK DRIVER Unavailable Unavailable Ancelmo, Tiffany MILK TRUCK DRIVER Unavailable Unavailable Ancelmo, Tiffany MILK TRUCK DRIVER Unavailable Unavailable Ancelmo, Tiffany MILK TRUCK DRIVER Unavailable Unavailable Ancelmo, Tiffany MILK TRUCK DRIVER Unavailable Unavailable Ancelmo, Tiffany MILK TRUCK DRIVER Unavailable Unavailable Ancelmo, Tiffany MILK TRUCK DRIVER Unavailable Unavailable Ancelmo, Tiffany MILK TRUCK DRIVER Unavailable Unavailable Ancelmo, Tiffany MILK TRUCK DRIVER Unavailable Unavailable Ancelmo, Tiffany MILK TRUCK DRIVER Unavailable Unavailable Ancelmo, Tiffany MILK TRUCK DRIVER Unavailable Unavailable Ancelmo, Tiffany MILK TRUCK DRIVER Unavailable Unavailable Ancelmo, Tiffany MILK TRUCK DRIVER Unavailable Unavailable Ancelmo, Tiffany MILK TRUCK DRIVER Unavailable Unavailable Ancelmo, Tiffany MILK TRUCK DRIVER Unavailable Unavailable Ancelmo, Tiffany MILK TRUCK DRIVER Unavailable Unavailable Ancelmo, Tiffany MILK TRUCK DRIVER Unavailable Unavailable Ancelmo, Tiffany MILK TRUCK DRIVER Unavailable Unavailable Ancelmo, Tiffany MILK TRUCK DRIVER Unavailable Unavailable Ancelmo, Tiffany MILK TRUCK DRIVER Unavailable Unavailable Ancelmo, Tiffany MILK TRUCK DRIVER Unavailable Unavailable Ancelmo, Tiffany MILK TRUCK DRIVER Unavailable Unavailable Ancelmo, Tiffany MILK TRUCK DRIVER Unavailable Unavailable Ancelmo, Tiffany MILK TRUCK DRIVER Unavailable Unavailable Ancelmo, Tiffany MILK TRUCK DRIVER Unavailable Unavailable Ancelmo, Tiffany MILK TRUCK DRIVER Unavailable Unavailable Ancelmo, Tiffany MILK TRUCK DRIVER Unavailable Unavailable Ancelmo, Tiffany MILK TRUCK DRIVER Unavailable Unavailable Ancelmo, Tiffany MILK TRUCK DRIVER Unavailable Unavailable Ancelmo, Tiffany MILK TRUCK DRIVER Unavailable Unavailable Ancelmo, Tiffany MILK TRUCK DRIVER Unavailable Unavailable Ancelmo, Tiffany MILK TRUCK DRIVER Unavailable Unavailable Ancelmo, Tiffany MILK TRUCK DRIVER Unavailable Unavailable Ancelmo, Tiffany MILK TRUCK DRIVER Unavailable Unavailable Ancelmo, Tiffany MILK TRUCK DRIVER Unavailable Unavailable Ancelmo, Tiffany MILK TRUCK DRIVER Unavailable Unavailable Ancelmo, Tiffany MILK TRUCK DRIVER Unavailable Unavailable Ancelmo, Tiffany MILK TRUCK DRIVER Unavailable Unavailable Ancelmo, Tiffany MILK TRUCK DRIVER Unavailable Unavailable Ancelmo, Tiffany MILK TRUCK DRIVER Unavailable Unavailable Ancelmo, Tiffany MILK TRUCK DRIVER Unavailable Unavailable Ancelmo, Tiffany MILK TRUCK DRIVER Unavailable Unavailable Ancelmo, Tiffany MILK TRUCK DRIVER Unavailable Unavailable Ancelmo, Tiffany MILK TRUCK DRIVER Unavailable Unavailable [place], V EAGLE PA-C Unavailable Unavailable [place], V EAGLE PA-C Unavailable Unavailable [place], V EAGLE PA-C Unavailable Unavailable [place], V EAGLE PA-C Unavailable Unavailable [place], V EAGLE PA-C Unavailable Unavailable [place], V EAGLE PA-C Unavailable Unavailable [place], V EAGLE PA-C Unavailable Unavailable Re-disclosure Warning [...] is protected by Article 27-F of the [facility] Public Health law. If you continue you may have access to information: Regarding HIV / AIDS; Provided by facilities licensed or operated by the [facility] Office of Mental Health; or Provided by the [facility] Office for People With Developmental Disabilities. If such information is present, then the following [facility] mandated warning applies: This information has [...] law may result in a fine or [place] health care facility sentence or both. A general authorization for the release of medical or other information is NOT sufficient authorization for further disc losure. Allergies and Adverse Reactions Type Description Substance Reaction Status Data Source(s ) No Known Drug Allergies No Known Drug Allergies No Known Drug Aller gies active NETSMART ([facility] ) Family History Family Member Name Family Member Gender Family Member Status Date o f Status Description Data Source(s) Unknown Male Problem MEDENT ([facility], ) Encounters Encounter Providers Location Date Indications Data Source(s ) 06/04/2020 12:00:00 AM EST - 021 02:38:14 PM EST NETSMART ([facility]) Outpatient Attender: EAGLE TURNERCReferrer: Arturo CARROLL.VIC-DANA 05/23/2020 12:00:00 AM EST [facility] Outpatient Attender: Jeannette Stein 01:40:00 PM EST MEDENT ([facility] ) [place] [address] [address] 04/24/2020 12:00:00 AM EST eCW1 ([facility]) Outpatient Attender: MARIAH Stein 1 05/30/2019 01:00:00 PM EST MEDENT ([facility] ) [place] [address] [address] 03/28/2020 12:00:00 AM EST eCW1 ([facility]) [place] [address] [address] 03/23/2020 12:00:00 AM EST eCW1 ([facility]) [place] [address] [address] 03/23/2020 12:00:00 AM EST eCW1 ([facility]) [place] [address] [address] 03/21/2020 12:00:00 AM EST eCW1 ([facility]) Outpatient Attender: MARIAH Stein 1 02:00:00 PM EDT MEDENT ([facility] ) Outpatient Attender: Lucila Leach MD SJP.VIC-SJP.VIC 11/2019 12:00:00 AM EDT - 02/15/2020 01:50:37 PM EDT [facility] Outpatient Attender: MARIAH Stein 0 01/26/2020 11:20:00 AM EDT MEDENT ([facility] ) Outpatient Attender: Tiffany Stein 0 10/20/2019 02:00:00 PM EDT MEDENT ([facility] ) Outpatient 07/12/2019 03:15:00 PM EST [facility] Outpatient Attender: Gia Stein 10:00:00 AM EST MEDENT ([facility] ) Outpatient Attender: Luis Gold MD CPSCAORT-CPSCAORT 11:20:00 AM EST - 06/10/2019 11:21:00 AM EST [facility] Patient discharged. Immunizations Vaccine Date Status Description Data Source(s) Influenza, injectable, MDCK, preservative free, mariposa valent 03/30/2020 01:20:00 PM EST completed [facility]) Medications Medication Brand Name Start Date Product Form Dose Route Admi nistrative Instructions Pharmacy Instructions Status Indications Reaction Description Data Source(s) Sertraline HCl 100 MG Sertraline HCl 06/04/2020 12:00:00 AM EST 1.0 {tablet} completed NETSMART ( [facility]) Acetaminophen Acetaminophen 06/04/2020 12:00:00 AM EST 500.0 {mg } completed NETSMART ([facility]) Furosemide 40 MG Furosemide 06/04/2020 12:00:00 AM EST 0 {tablet } completed NETSMART ([facility]) Metoprolol Tartrate 50 MG Metoprolol Tartrate 06/04/2020 12:00:00 A M EST 0 {tablet} completed [facility] ([facility]) Nystatin Powder Nystatin Powder 06/04/2020 12:00:00 AM EST 15.0 {gm} completed NETSMART ([facility]) Xarelto 20 MG Xarelto 06/04/2020 12:00:00 AM EST 1.0 {tablet} completed [facility]ART ([facility]) Doxycycline Hyclate 100 MG Doxycycline Hyclate 06/04/2020 12:00:00 AM EST 0 {tablet} completed [facility]SMART ([facility]) Sertraline 50 MG Oral Tablet sertraline (ZOLOFT) 50 MG tablet sertraline (ZOLOFT) 50 MG tablet 05/23/2020 12:00:00 AM EST 50 mg Oral active Take 1 tablet (50 mg total) by mouth daily [facility] rivaroxaban 20 MG Oral Tablet rivaroxaban (XARELTO) 20 MG TABS rivaroxaban (XARELTO) 20 MG TABS 05/23/2020 12:00:00 AM EST 20 mg Oral active Take 1 tablet (20 mg total) by mouth daily [facility] Administration Of Flu Vaccine 03/30/2020 12:00:00 AM EST completed [facility]) Medication administered onsite Cephalexin 500 MG Oral Capsule Cephalexin 03/30/2020 12:00:00 AM EST ORAL completed MEDENT ([facility]) Zolpidem tartrate 10 MG Oral Tablet Zolpidem Tartrate 03/11 12:00:00 AM EST ORAL active MEDENT ([facility]) rivaroxaban 20 MG Oral Tablet rivaroxaban (XARELTO) 20 MG TABS rivaroxaban (XARELTO) 20 MG TABS 03/14/2020 12:00:00 AM EST 20 mg Oral aborted Take 1 tablet (20 mg total) by mouth daily [facility] 24 HR metoprolol succinate 50 MG Extended Release Oral Tablet [Toprol] Toprol XL 02/27/2020 12:00:00 AM EDT ORAL active MEDENT ([facility]) Sertraline 100 MG Oral Tablet Sertraline HCL 02/27/2020 12:00:00 AM E DT ORAL active [facility] ([facility]) Zolpidem tartrate 10 MG Oral Tablet zolpidem (AMBIEN) 10 MG tablet zolpidem (AMBIEN) 10 MG tablet 01/30/2020 12:00:00 AM EDT 10 mg a ctive 10 mg [facility] NITROFURANTOIN, MACROCRYSTALS 100 MG Oral Capsule Nitrofuran toin Macrocrystal 01/26/2020 12:00:00 AM EDT ORAL completed MEDENT ([facility]) Sertraline 50 MG Oral Tablet sertraline (ZOLOFT) 50 MG tablet sertraline (ZOLOFT) 50 MG tablet 01/23/2020 12:00:00 AM EDT 50 mg Oral aborted Take 50 mg by mouth daily [facility] 50 mg 06/17/2019 12:00:00 AM EST tablet 30 TAKE 1/2 TABLET BY MOUTH EVERY MORNING FOR 4 DAYS THEN TAKE ONE TABLET BY MOUTH EVERY DAY TAKE 1/2 TABLET BY MOUTH EVERY MORNING FOR 4 DAYS THEN TAKE ONE TABLET BY MOUTH EVERY DAY SOLD: 06/19/2019 [facility] Sertraline 50 MG Oral Tablet Sertraline HCL 06/16/2019 12:00:00 AM EST ORAL active MEDENT ([facility]) 5 mg 06/08/2019 12:00:00 AM EST [...] type / Coverage type Policy ID Covered green party ID Covered green party's relationship to mitchell Policy Mitchell Plan Information MEDICARE [id number] SP [id number] WELLCARE [id number] SP [id number] WELLCARE MEDICARE [id number] 24 [id number] WELLCARE MEDICARE [id number] Cara 18 [id number] MEDICARE [id number] SP [id number] A MEDICARE [id number] SP [id number] MEDICARE [id number] SP [id number] A WELLCARE O [id number] S [id number] WELLCARE [id number] SP [id number] WELLCARE [id number] Other [id number] Well[employer] Plans [employer] Commercial [id number] Self [id number] Wellcare/Todays Optmcr Commercial [id number] Self [id number] [employer] Commercial [id number] Self [id number] MEDICARE A [id number] Self [id number] A WELLCARE [id number] SP [id number] Wellcare/Todays Optmcr Commercial [id number] Self [id number] Wellcare Today's Options Commercial [id number] Self [id number] TODAYS OPTIONS [id number] SP [id number] [place] FamilySkyline Commercial [id number] Self [id number] [place] Family[employer]yline Commercial [id number] Self [id number] [place] FamilySkyline Commercial [id number] Self [id number] TODAYS OPTIONS [id number] SP [id number] [place] Istpika [id number] Self [id number] Todays Option Commercial [id number] Self [id number] Medicare Part A [place] Primary [id number] Self [id number] MEDICARE PART A-O/P [id number] 18 [id number] TODAYS OPT[place] [id number] 18 [id number] MEDICARE PART A [facility] [id number] 18 [id number] TODAYS OPTION -RECURRING [id number] CIGNA HEALTHCARE -RECURRING [id number] 18 [id number] [employer] HEALTHC[employer] -RECURRING [id number] 18 [id number] TODAYS OPTION -RECURRING [id number] 18 [id number] MEDICARE -O/P [id number] 18 [id number] MEDICARE [id number] SP [id number] A MEDICARE C [id number] S [id number] A MEDICARE PART A-CLINIC [id number] 18 [id number] MEDICARE OUTPATIENT M [id number] S [id number] WELLCARE [facility] PLANS O [id number] S [id number] UNAVAILABLE UNAVAILA BLE Problems, Conditions, and Diagnoses Code Display Name Description Problem Type Effective Dates Data Source(s) Z46.6 Encounter for fitting and adjustment of urinary device Encounter for fitting and adjustment of urinary device Problem 06/04/2020 12:00:00 AM EST NETSMART ([facility]) Z79.01 shelter (current) use of anticoagulant s oysterman (current) use of anticoagulants Problem 06/04/2020 12:00:00 AM EST [facility] ([facility]) Z91.81 History of falling History of falling Problem 12:00:00 AM EST [facility]SMART ([facility]) Z87.891 Personal history of nicotine dependence Personal history of nicotine dependence Problem 06/04/2020 12:00:00 AM EST [facility]SMART ([facility]) Z68.44 Body mass index [BMI] 60.0-69.9, adult B beata mass index [BMI] 60.0-69.9, adult Problem 06/04/2020 12:00:00 AM EST [facility]SMART ([facility]) Z96.642 Presence of left artificial hip joint Pr esence of left artificial hip joint Problem 06/04/2020 12:00:00 AM EST [facility]SMART ([facility]) J18.9 Pneumonia, unspecified organism Pneumonia, unspecified organism Problem 06/04/2020 12:00:00 AM EST [facility]SMART ([facility] ) N20.0 Calculus of kidney Calculus of kidney Problem 12:00:00 AM EST [facility]SMART ([facility]) R33.8 Other retention of urine Other retention of urine Prob chele 06/04/2020 12:00:00 AM EST [facility]SMART ([facility] ) R29.6 Repeated falls Repeated falls Problem 06/04/2020 12:00: 00 AM EST NETSMART ([facility]) I48.91 Unspecified atrial fibrillation Unspecified atrial fib rillation Problem 06/04/2020 12:00:00 AM EST NETSMART ([facility] ) I50.32 Chronic diastolic (congestive) heart cain lure Chronic diastolic (congestive) heart failure Problem 06/04/2020 12:00:00 AM EST NETSMA RT ([facility]) K59.04 Chronic idiopathic constipation Chronic idiopathic con stipation Problem 06/04/2020 12:00:00 AM EST NETSMART ([facility] ) K57.30 Diverticulosis of large inte miah without perforation or abscess without bleeding Diverticulosis of large intestine withou t perforation or abscess without bleeding Problem 06/04/2020 12:00:00 AM EST NETSMART ([facility]) K43.9 Ventral hernia without obstruction or ga ngrene Ventral hernia without obstruction or gangrene Problem 06/04/2020 12:00:00 AM EST [facility]SMART ([facility]) M47.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, lumbar region Spondylosis without myelopathy or radiculopathy, lumbar region Problem 06/04/2020 12:00:00 AM EST [facility]SMART ([facility] ) M16.11 Unilateral primary osteoarthritis, right hip Unilateral primary osteoarthritis, right hip Problem 06/04/2020 12:00:00 AM EST NETSMAR T ([facility]) G47.00 Insomnia, unspecified Insomnia, unspecified Problem 06/04/2020 12:00:00 AM EST NETSMART ([facility] ) G47.33 Obstructive sleep apnea (adult) (pediatr ic) Obstructive sleep apnea (adult) (pediatric) Problem 06/04/2020 12:00:00 AM EST NETSMART ([facility]) E66.01 Morbid (severe) obesity due to excess ca lories Morbid (severe) obesity due to excess calories Problem 06/04/2020 12:00:00 AM EST NETSMART ( [facility]) 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 Problem 03/21/2020 12:00:00 AM EST eCW1 ([facility]) E66.01 Morbid obesity Morbid obesity [id number] 02/15/2020 12:00: 00 AM EDT [facility] I48.19 Persistent atrial fibrillation Persistent atrial fibri llation [id number] 02/15/2020 12:00:00 AM EDT [facility] I48.19 Other persistent atrial fibrillation Oth er persistent atrial fibrillation Diagnosis 02/15/2020 01:01:44 PM EDT [facility] E66.01 Morbid (severe) obesity due to excess ca lories MORBID (SEVERE) OBESITY DUE TO EXCESS CALORIES Diagnosis 06/10/2019 11:20:00 AM [facility] Z96.642 Presence of left artificial hip joint SD ESENCE OF LEFT ARTIFICIAL HIP JOINT Diagnosis 06/10/2019 11:20:00 AM [facility] M16.11 Unilateral primary osteoarthritis, right hip UNILATERAL PRIMARY OSTEOARTHRITIS, RIGHT HIP Diagnosis 06/10/2019 11:20:00 AM [facility] M25.551 Pain in right hip PAIN IN RIGHT HIP Diagnosis 06/10 11:20:00 AM [facility] Surgeries/Procedures Procedure Description Date Indications Data Source(s) POCT AMB EKG POCT AMB EKG Routine 05/23/2020 5:28 PM EST Persistent atrial fibrillation 05/23/2020 10:28:00 PM EST Pe rsistent atrial fibrillation [facility] Persistent atrial fibrillation ECG ROUTINE ECG W/LEAST 12 LDS W/I&R 01/26/2020 12:00: 00 AM EDT [facility] ([facility]) [facility] outpatient clinic visit for assessment and ma nagement of a patient Hospital Outpatient Clinic Visit 06/10/2019 12:00:00 AM [facility] [id number] X-RAY EXAM HIP UNI 2-3 VIEWS 06/10/2019 12:00:00 AM ES T [facility] Results ID Date Data Source [id number] 05/24/2020 04:52:00 AM EST [facility] Name Value Range Interpretation Code Description Data Marisela rce(s) Supporting Document(s) SARS coronavirus 2 RNA [Presence] in Res piratory specimen by OCTAVIA with probe detection NEGATIVE [facility] This lab was ordered by [facility] a nd reported by [facility]. ID Date Data Source [id number] 04/06/2020 02:21:00 PM EST MEDENT ([facility]) Name Value Range Interpretation Code Description Data Marisela rce(s) Supporting Document(s) Laboratory test finding (navigational concept) Laboratory test result MEDENT ([facility]) A false negative result may occur [...] pathogens. DISCLAIMER: Testing was performed using the Plat[employer] SARS-CoV-2 test. This test was developed and its performance characteristics determined by [place]. This test has not been FDA cleared [...] or revoked sooner. ID Date Data Source [id number] 04/06/2020 12:25:00 PM EST [facility] ([facility]) Name Value Range Interpretation Code Description Data Marisela rce(s) Supporting Document(s) Appearance, Urine RFX Laboratory test result [facility] ([facility]) PH,Urine RFX 6.0 units 5.0-9.0 [facility] ([facility]) Specific [place] Ur Auto RFX 1.013 1.002-1.035 [facility] Color, Urine RFX Laboratory test result [facility] Ketone, Urine Auto RFX Laboratory test result [facility]) Protein, Urine Auto RFX Laboratory test [facility]) Glucose, Urine (Ua) Auto RFX Laboratory test result [facility] Nitrite, Urine Auto RFX Laboratory test result [facility] ([facility]) Bilirubin, Urine Auto RFX Laboratory test [facility]) Urobilinogen, Urine Auto RFX 4.0 mg/dL 0.0-2.0 [facility] Blood, Urine Blood RFX Laboratory test [facility]) Leukocyte Esterase Ur Auto RFX Laboratory test result [facility] ([facility]) WBC, Urine Auto RFX 63 /HPF 0-3 [facility] ([facility]) Squam Epithelial Cell Ur Aurfx 2 /HPF 0-6 [facility] ([facility]) Bacteria, Urine Auto RFX Laboratory test result [facility] ([facility]) RBC, Urine Auto RFX Laboratory test result 0-3 [facility] Hyaline Cast, Urine Auto RFX 0 /LPF 0-1 M [facility] ([facility]) Mucus, Urine RFX Laboratory test result [facility] ([facility]) ID Date Data Source [id number] 04/06/2020 11:44:00 AM EST [facility]) Name Value Range Interpretation Code Description Data Marisela rce(s) Supporting Document(s) Blood Type Laboratory test result [facility] ([facility]) AB Screen (Indirect Venita)Vis Laboratory test result [facility] ([facility]) ID Date Data Source [id number] 04/06/2020 11:44:00 AM EST [facility] Name Value Range Interpretation Code Description Data Marisela rce(s) Supporting Document(s) Lipoprotein lipase [Enzymatic activity/volume] in Serum or Plasm a 45 U/L 73-393 [facility] ([facility]) <content>note:<nlbl:demographic_changed> </content>
<content></content> Amylase [Enzymatic activity/volume] in Serum or Plasma 20 U/L 25- 115 [facility] ([facility]) <content>note:<nlbl:demographic_changed> </content>
<content></content> ID Date Data Source [id number] 04/06/2020 11:44:00 AM EST [facility] ([facility]) Name Value Range Interpretation Code Description Data Marisela rce(s) Supporting Document(s) Glucose, Fasting 115 mg/dL 70-100 [facility] Glomerular Filtration Rate Laboratory test result [facility] ([facility]) <content>Units are mL/min/1.73 m2</content>
<content></content>
<content>Chronic Kidney Disease Staging per NKF:</content>
<content></content>
<content>Stage I & II GFR >=60 Normal to Mildly Decreased</content>
<content>Stage III GFR 30-59 Moderately Decreased</content>
<content>Stage IV GFR 15-29 Severely Decreased</content>
<content>Stage V GFR <15 Very Little GFR Left</content>
<content>ESRD GFR <15 on CHINESE HERBALIST</content>
<content></content> Blood Urea Nitrogen 10 mg/dL 7-18 [facility] ([facility]) Creatinine For GFR 0.96 mg/dL 0.70-1.30 [facility] ([facility]) Potassium Serum 3.8 meq/L 3.5-5.1 [facility] ([facility]) Carbon Dioxide Level 28 meq/L 21-32 [facility] ([facility]) Chloride Level 104 meq/L 98-107 [facility] ([facility]) Sodium Level 138 meq/L 136-145 [facility] ([facility]) Calcium Level 8.1 mg/dL 8.8-10.2 [facility] ([facility]) Anion Gap 6 meq/L 8-16 [facility] ([facility]) ID Date Data Source [id number] 04/06/2020 11:44:00 AM EST [facility] ([facility]) Name Value Range Interpretation Code Description Data Marisela rce(s) Supporting Document(s) Ast/Sgot 24 U/L 7-37 [facility] ([facility]) Alt/SGPT 13 U/L 12-78 [facility] ([facility]) Alkaline Phosphatase 133 U/L 45-117 [facility] ([facility]) Bilirubin,Direct 0.4 mg/dL 0.0-0.2 [facility] ([facility]) Bilirubin,Total 0.9 mg/dL 0.2-1.0 [facility] ([facility]) Albumin/Globulin Ratio 0.6 [facility] Total Protein 7.7 GM/DL 6.4-8.2 [facility]) Albumin 2.9 GM/DL 3.2-5.2 [facility] ([facility]) ID Date Data Source [id number] 04/06/2020 11:44:00 AM EST [facility] ([facility] Name Value Range Interpretation Code Description Data Marisela rce(s) Supporting Document(s) MB/CK Relative Index 2.78 [facility] ([facility] <content>DIAGNOSIS CRITERIA</content>
<content>MMB ng/ml Relative Index (RI)</content>
<content>NON-AMI < or = 5 N/A</content>
<content>DAWSON ZONE > 5 < or = 4</content>
<content>AMI > 5 > 4</content>
<content></content> CK-MB Value Mass Laboratory test result [facility] ([facility]) CPK Creatine Phosphokinase 36 U/L 39-308 [facility] ([facility]) Troponin I Laboratory test result [facility] ([facility]) <content>Troponin I Reference Interval f or Siemens [place] LOCI:</content>
<content></content>
<content>99th Percentile= 0.00-0.045 ng/ml</content>
<content></content>
<content>Risk Stratification:</content>
<content><= 0.10 ng/ml Decreased Risk for Adverse Clinical</content>
<content>Events.</content>
<content>0.10-1.50 ng/ml Increased Risk for Adverse Clinical</content>
<content>Events. Evaluation of additional</content>
<content>criterion and/or repeat testing in 2-6</content>
<content>hours is suggested to rule out myocardial</content>
<content>damage.</content>
<content>>= 1.50 ng/ml Indicative of Myocardial Injury.</content>
<content></content> ID Date Data Source [id number] 04/06/2020 11:44:00 AM EST [facility] ([facility]) Name Value Range Interpretation Code Description Data Marisela rce(s) Supporting Document(s) White Blood Count 8.7 10 4.0-10.0 [facility] ([facility]) Mean Corpuscular Volume 96.4 fl 80.0-96.0 [facility] ([facility]) Hematocrit 37.8 % 42.0-52.0 [facility] Hemoglobin 11.6 g/dL 13.5-17.5 [facility] ([facility]) Red Blood Count 3.92 10 4.30-6.10 [facility] ([facility]) Red Cell Distribution Width 15.4 % 11.5-14.5 [facility] ([facility]) Mean Corpuscular HGB Conc 30.7 g/dL 32.0-36.5 MEDE NT ([facility]) Mean Corpuscular Hemoglobin 29.6 pg 27.0-33.0 MD DENT ([facility]) Lymph % 5.9 % 24.0-44.0 [facility]) Platelet Count, Automated 144 10 150-450 MEDE NT ([facility]) Neutrophils % 86.7 % 36.0-66.0 [facility] ([facility]) [place] % 6.3 % 0.0-5.0 [facility]) Eos % 0.2 % 0.0-3.0 [facility]) Baso % 0.2 % 0.0-1.0 [facility] Immature Granulocyte % 0.7 % 0-3.0 [facility] ([facility]) Neutrophils # 7.6 10 1.5-8.5 [facility] ([facility]) Nucleated Red Blood Cell % 0.0 % 0-0 MED ENT ([facility]) Eos # 0.0 10 0.0-0.5 [facility]) [place] # 0.6 10 0.0-0.8 [facility] Lymph # 0.5 10 1.5-5.0 [facility] Baso # 0.0 10 0.0-0.2 [facility] ID Date Data Source [id number] 04/06/2020 11:17:00 AM EST [facility] ([facility]) Name Value Range Interpretation Code Description Data Marisela rce(s) Supporting Document(s) Lactate [Mass/volume] in Serum or Plasma 2.2 mmol/L 0.4-2.0 Above upper panic limits [facility] ([facility]) BACK AND VERIFIED BY ID Date Data Source URINE CULTURE 03/21/2020 12:00:00 AM EST eCW1 ([facility]) Name Value Range Interpretation Code Description Data Marisela rce(s) Supporting Document(s) URINE CULTURE eCW1 ([facility]) ID Date Data Source UA URINALYSIS 03/21/2020 12:00:00 AM EST eCW1 ([facility]) Name Value Range Interpretation Code Description Data Marisela rce(s) Supporting Document(s) UA URINALYSIS eCW1 ([facility]) ID Date Data Source [id number] 01/26/2020 12:04:00 PM EDT [facility] Name Value Range Interpretation Code Description Data Marisela rce(s) Supporting Document(s) Urine Color Laboratory test result Abnormal (applies to non-numeric results) [facility] ([facility] Urine Appearance Laboratory test result Abnormal (applies to non-numeric results) [facility] ([facility]) Specific gravity of Urine 1.020 1.005-1.030 [facility] ([facility] Urine PH 6.5 units 5.0-9.0 [facility] Urine Blood Laboratory test result Abnormal (applies to non-numeric results) [facility] Urine Protein Laboratory test result 0-0 Abnormal (applies to non-numeric results) [facility] ([facility] Urine Leukocytes Laboratory test result Abnormal (applies to non-numeric results) [facility] ([facility] Urine Ketone Laboratory test result MEDE NT ([facility]) Urine Nitrite Laboratory test result Abnormal (applies to non-numeric results) [facility] Glucose [Presence] in Urine Laboratory test result [facility] ([facility]) Urine Urobilinogen Laboratory test result 0.2-1.0 Abnorm al (applies to non- numeric results) [facility] ([facility]) Bilirubin.total [Mass/volume] in Serum or Plasma Laboratory test resu lt [facility] ID Date Data Source [id number] 01/26/2020 12:04:00 PM EDT [facility] Name Value Range Interpretation Code Description Data Marisela rce(s) Supporting Document(s) Thyrotropin [Units/volume] in Serum or Plasma by Detec tion limit <= 0.05 mIU/L 7.15 uIU/mL 0.36-3.74 [facility] ([facility] ID Date Data Source [id number] 01/26/2020 12:04:00 PM EDT [facility] Name Value Range Interpretation Code Description Data Marisela rce(s) Supporting Document(s) Erythrocytes [#/volume] in Blood by Automated count 4.43 x10*6/UL 4.2 0-6.30 [facility] ([facility]) Leukocytes [#/volume] in Blood by Automated count 7.5 x10*3/UL 4.1-10 .9 [facility] ([facility] MCV 91.0 fL 80.0-97.0 [facility]) Hemoglobin [Mass/volume] in Blood 13.8 g/dL 12.0-18.0 [facility] ([facility]) Hematocrit [Volume Fraction] of Blood by Automated count 40.4 % 3 7.0-51.0 [facility] ([facility]) MCH 31.2 pg 26.0-32.0 [facility]) MCHC 34.2 g/dL 31.0-38.0 [facility] ([facility]) Erythrocyte distribution width [Ratio] by Automated count 13.1 % 11.6-13.7 [facility] ([facility]) Platelets [#/volume] in Blood by Automated count 190 x10*3/UL 140-440 [facility] ([facility] Lymph % 17.3 % 10.0-58.5 [facility]) MPV 8.5 FL 7.8-11.0 [facility]) Mid % 4.4 % 1.7-9.3 [facility] ([facility]) Mid # 0.3 x10*3/UL 0.1-0.6 [facility] ([facility]) Neut % 78.3 % 37.0-92.0 [facility] Lymph # 1.3 x10*3/UL 0.6-4.1 [facility] ([facility]) Neut # 5.9 x10*3/UL 2.0-7.8 [facility] ([facility]) ID Date Data Source [id number] 06/16/2019 11:52:00 AM EST [facility] ([facility]) Name Value Range Interpretation Code Description Data Marisela rce(s) Supporting Document(s) Thyroxine (T4) free [Mass/volume] in Serum or Plasma 1.14 ng/dL 0.76- 1.46 [facility] ([facility]) ID Date Data Source [id number] 06/16/2019 11:52:00 AM EST [facility] ([facility]) Name Value Range Interpretation Code Description Data Marisela rce(s) Supporting Document(s) Thyrotropin [Units/volume] in Serum or Plasma by Detec tion limit <= 0.05 mIU/L 6.30 uIU/mL 0.36-3.74 [facility] ([facility] ) ID Date Data Source [id number] 06/16/2019 11:52:00 AM EST [facility] ([facility]) Name Value Range Interpretation Code Description Data Marisela rce(s) Supporting Document(s) Triglyceride [Mass/volume] in Serum or Plasma 80 mg/dL 30-150 [facility] ([facility]) Cholesterol [Mass/volume] in Serum or Plasma 173 mg/dL 131-200 [facility] ([facility]) Cholesterol in HDL [Mass/volume] in Serum or Plasma 68 mg/dL 35-60 [facility] ([facility]) Cholesterol in LDL [Mass/volume] in Serum or Plasma by calcu lation 89 CALC 50-159 [facility] ([facility]) ID Date Data Source [id number] 06/16/2019 11:52:00 AM EST [facility] ([facility]) Name Value Range Interpretation Code Description Data Marisela rce(s) Supporting Document(s) Urea nitrogen [Mass/volume] in Serum or Plasma 8 mg/dL 7-18 [facility] ([facility]) Glucose [Mass/volume] in Serum or Plasma 95 mg/dL 74-99 [facility] ([facility]) 100-125 mg/dL PRE-DIABETES/FASTING >126 mg/dL DIABETES/FASTING Potassium [Moles/volume] in Serum or Plasma 4.0 meq/L 3.5-5.1 [facility] ([facility]) Creatinine 0.9 mg/dL 0.6-1.3 [facility] Sodium [Moles/volume] in Serum or Plasma 140 meq/L 136-145 [facility] ([facility]) Carbon dioxide, total [Moles/volume] in Serum or Plasma 31 meq/L 21 -32 [facility] ([facility]) Calcium [Mass/volume] in Serum or Plasma 8.8 mg/dL 8.5-10.1 [facility] ([facility]) Chloride [Moles/volume] in Serum or Plasma 103 meq/L 98-107 [facility] ([facility]) Glomerular filtration rate/1.73 sq M pre dicted among non-blacks [Volume Rate/Area] in Serum or Plasma by Creatinine-based formula (MDRD) Laboratory test result [facility] ([facility] ) Glomerular filtration rate/1.73 sq M pre dicted among blacks [Volume Rate/Area] in Serum or Plasma by Creatinine-based formula (MDRD) Laboratory test result [facility] ([facility]) <content>CHRONIC KIDNEY DISEASE STAGING PER NKF</content>
<content></content>
<content>STAGE I & II GFR >= 60 NORMAL TO MILDLY DECREASED</content>
<content>STAGE III GFR 30-59 MODERATELY DECREASED</content>
<content>STAGE IV GFR 15-29 SEVERELY DECREASED</content>
<content>STAGE V GFR <15 VERY LITTLE GFR LEFT</content>
<content>ESRD GFR <15 ON CHINESE HERBALIST</content>
<content></content> ID Date Data Source [id number] 06/16/2019 11:52:00 AM EST [facility] ([facility]) Name Value Range Interpretation Code Description Data Marisela rce(s) Supporting Document(s) Magnesium 1.9 mg/dL 1.8-2.4 [facility] ([facility]) ID Date Data Source [id number] 06/16/2019 11:52:00 AM EST [facility] ([facility]) Name Value Range Interpretation Code Description Data Marisela rce(s) Supporting Document(s) Erythrocytes [#/volume] in Blood by Automated count 4.97 x10*6/UL 4.2 0-6.30 [facility] ([facility]) Leukocytes [#/volume] in Blood by Automated count 6.7 x10*3/UL 4.1-10 .9 [facility] ([facility]) Hemoglobin [Mass/volume] in Blood 15.0 g/dL 12.0-18.0 [facility] ([facility]) Hematocrit [Volume Fraction] of Blood by Automated count 45.7 % 3 7.0-51.0 [facility] ([facility]) MCH 30.2 pg 26.0-32.0 [facility]) MCV 91.9 fL 80.0-97.0 [facility]) Platelets [#/volume] in Blood by Automated count 165 x10*3/UL 140-440 [facility] ([facility]) Erythrocyte distribution width [Ratio] by Automated count 13.2 % 11.6-13.7 [facility] ([facility]) MCHC 32.9 g/dL 31.0-38.0 [facility]) Lymph % 19.8 % 10.0-58.5 [facility] [facility] MPV 9.3 FL 7.8-11.0 [facility] Mid % 6.9 % 1.7-9.3 [facility] Lymph # 1.3 x10*3/UL 0.6-4.1 [facility] ([facility]) Mid # 0.5 x10*3/UL 0.1-0.6 [facility] ([facility]) Neut % 73.3 % 37.0-92.0 [facility]) Neut # 4.9 x10*3/UL 2.0-7.8 [facility] ([facility]) ID Date Data Source [id number] 06/10/2019 04:55:00 PM [facility] Name: JULIANO JENKINS : 1955 Age/Sex: 64M Ordering Provider: Luis Gold MD Med Rec #: [id number] Reg Status: DEP [facility] Room #: Date of Service: 06/10/19 Report Number: [id number] cc:Luis Gold MD Send Report To: [id number] XRP/XR Hip Rt 1-2 view w AP [...] Date/Time: 06/10/19 1254 Transcribed Date/Time: 06/10/19 1655 County Auditor: DENISE Name Value Range Interpretation Code Description Data Marisela rce(s) Supporting Document(s) Procedure Social History Code Duration Value Status Description Data Source(s ) Smoking 03/21/2020 12:00:00 AM EST Former Smoker completed Former Smoker eCW1 ([facility]) Smoking 03/21/2020 12:00:00 AM EST Former Smoker completed Former Smoker eCW1 ([facility]) Smoking 03/21/2020 12:00:00 AM EST Former Smoker completed Former Smoker eCW1 ([facility]) Smoking 03/21/2020 12:00:00 AM EST Former Smoker completed Former Smoker eCW1 ([facility]) Smoking 03/21/2020 12:00:00 AM EST Former Smoker completed Former Smoker eCW1 ([facility]) Alcohol intake 02/15/2020 12:00:00 AM EDT Not Currently completed [facility] Cigarette pack-years 02/15/2020 12:00:00 AM EDT UNK completed [facility] Cigarettes smoked current (pack per day) - Reported 02/15/20 20 12:00:00 AM EDT UNK completed [facility] Smoking 02/15/2020 12:00:00 AM EDT Former smoker completed Former smoker [facility] 01/10/2020 12:00:00 AM EDT Cigarette Smoker completed Cig arette Smoker [facility] 01/10/2020 12:00:00 AM EDT Current smoker completed Curre nt smoker [facility] Vital Signs ID Date Data Source UNK Name Value Range Interpretation Code Description Data Source(s) Body mass index (BMI) [Ratio] 76.64 kg/m2 76.64 kg/m2 [facility] Body weight 190.057 kg 190.057 kg [facility] Body height 157.5 cm 157.5 cm [facility] Diastolic blood pressure 62 mm[Hg] 62 mm[Hg] [facility] Systolic blood pressure 110 mm[Hg] 110 mm[Hg] [facility] Body height 65.25 [in_i] 65.25 [in_i] [facility] ([facility]) 5'5.25" Heart rate 52 /min 52 /min [facility] ([facility]) Diastolic blood pressure 80 mm[Hg] 80 mm[Hg] [facility] ([facility]) LT Arm Systolic blood pressure 110 mm[Hg] 110 mm[Hg] M EDENT ([facility]) LT Arm Oxygen saturation in Arterial blood by Pulse oximetry 94 % 94 % [facility] ([facility]) Air Body height 65.25 [in_i] 65.25 [in_i] [facility] ([facility]) 5'5.25" Heart rate 97 /min 97 /min [facility] ([facility]) Diastolic blood pressure 70 mm[Hg] 70 mm[Hg] [facility] ([facility]) Systolic blood pressure 112 mm[Hg] 112 mm[Hg] M EDENT ([facility]) Diastolic blood pressure 72 mm[Hg] 72 mm[Hg] eCW1 ([facility]) Systolic blood pressure 122 mm[Hg] 122 mm[Hg] e CW1 ([facility]) Body temperature 97.0 [degF] 97.0 [degF] eCW1 ( [facility]) Respiratory rate 20 /min 20 /min eCW1 ([facility]) Heart rate 80 /min 80 /min eCW1 ([facility]) Body mass index (BMI) [Ratio] 69.96 kg/m2 69.96 kg/m2 eCW1 ([facility]) Body height 63 [in_i] 63 [in_i] eCW1 ([facility]) Body weight 395 [lb_av] 395 [lb_av] eCW1 ([facility]) Body mass index (BMI) [Ratio] 62.1 kg/m2 62.1 k g/m2 MED[facility] ([facility]) Body weight 376.00 [lb_av] 376.00 [lb_av] MEDEN T ([facility]) Body height 65.25 [in_i] 65.25 [in_i] [facility] ([facility]) 5'5.25" Body mass index (BMI) [Ratio] 66.2 kg/m2 66.2 k g/m2 [facility] ([facility]) Oxygen saturation in Arterial blood by Pulse oximetry 99 % 99 % [facility] ([facility]) Air Body weight 401.00 [lb_av] 401.00 [lb_av] MEDEN T ([facility]) Body height 65.25 [in_i] 65.25 [in_i] [facility] ([facility]) 5'5.25" Heart rate 87 /min 87 /min [facility] ([facility]) Diastolic blood pressure 70 mm[Hg] 70 mm[Hg] [facility] ([facility]) Systolic blood pressure 110 mm[Hg] 110 mm[Hg] M EDENT ([facility]) Body weight 176.450 kg 176.450 kg MED[facility] ([facility], ) Body mass index (BMI) [Ratio] 64.7 kg/m2 64.7 k g/m2 MED[facility] ([facility], ) Body weight 389.00 [lb_av] 389.00 [lb_av] MEDEN T ([facility]) Body height 65 [in_i] 65 [in_i] [facility] ([facility]) 5'5" Diastolic blood pressure 68 mm[Hg] 68 mm[Hg] [facility] ([facility]) Systolic blood pressure 114 mm[Hg] 114 mm[Hg] [facility] ([facility]) Body weight 180.533 kg 180.533 kg [facility] ([facility]) Body mass index (BMI) [Ratio] 66.2 kg/m2 66.2 k g/m2 [facility] ([facility]) Body weight 398.00 [lb_av] 398.00 [facility]lb_av] [facility] Body height 65 [in_i] 65 [in_i] [facility] ([facility]) 5'5" Diastolic blood pressure 80 mm[Hg] 80 mm[Hg] [facility] ([facility]) Systolic blood pressure 150 mm[Hg] 150 mm[Hg] [facility] ([facility]) Body mass index (BMI) [Ratio] 64.9 kg/m2 64.9 k g/m2 [facility] Oxygen saturation in Arterial blood by Pulse oximetry 94 % 94 % [facility] ([facility]) Air Body weight 393.00 [lb_av] 393.00 [lb_av] [facility] ([facility]) Body height 65.25 [in_i] 65.25 [in_i] [facility] ( [facility]) 5'5.25" Heart rate 78 /min 78 /min [facility] ([facility]) Diastolic blood pressure 64 mm[Hg] 64 mm[Hg] [facility] ([facility]) Systolic blood pressure 120 mm[Hg] 120 mm[Hg] [facility] ([facility]) ID Date Data Source [id number] 06/23/2019 08:55:00 AM [facility] Name Value Range Interpretation Code Description Data Source(s) Weight (Calculated Kilograms) 146.96 146.96 [facility] Height (Calculated Centimeters) 165.1 165. 1 [facility] Body Mass Index (BMI) 53.8 53.8 [facility] Patient Treatment Plan of Care Planned Activity Planned Date Details Description Data Source (s) Acetaminophen 06/04/2020 12:00:00 AM EST [facility] ([facility]) Sertraline HCl 100 MG 06/04/2020 12:00:00 AM EST [facility] ([facility]) Xarelto 20 MG 06/04/2020 12:00:00 AM EST [facility] ([facility]) Nystatin Powder 06/04/2020 12:00:00 AM EST [facility] ([facility]) Metoprolol Tartrate 50 MG 06/04/2020 12:00:00 AM EST [facility] ([facility]) Furosemide 40 MG 06/04/2020 12:00:00 AM EST [facility] ([facility]) Doxycycline Hyclate 100 MG 06/04/2020 12:00:00 AM EST [facility] ([facility]) Sertraline 50 MG Oral Tablet 05/23/2020 12:00:00 AM EST [facility] rivaroxaban 20 MG Oral Tablet 05/23/2020 12:00:00 AM EST [facility] rivaroxaban 20 MG Oral Tablet 03/14/2020 12:00:00 AM EST [facility] Zolpidem tartrate 10 MG Oral Tablet 01/30/2020 12:00:00 AM EDT [facility] Sertraline 50 MG Oral Tablet 01/23/2020 12:00:00 AM EDT [facility]
[2020-06-10 09:05] LABS: BASO % 0.4 % (0.0-1.0); EOS # 0.3 10^3/uL (0.0-0.5); EOS % 2.8 % (0.0-3.0); HEMATOCRIT 32.5 % (42.0-52.0); HEMOGLOBIN 10.2 g/dl (13.5-17.5); LYMPH % 10.6 % (24.0-44.0); MEAN CORPUSCULAR HEMOGLOBIN 29.6 pg (27.0-33.0); MEAN CORPUSCULAR HGB CONC 31.4 g/dl (32.0-36.5); MEAN CORPUSCULAR VOLUME 94.2 fl (80.0-96.0); MONO # 1.1 10^3/uL (0.0-0.8); NEUTROPHILS # 6.7 10^3/uL (1.5-8.5); NEUTROPHILS % 73.3 % (36.0-66.0); PLATELET COUNT, AUTOMATED 151 10^3/uL (150-450); RED BLOOD COUNT 3.45 10^6/uL (4.30-6.10); WHITE BLOOD COUNT 9.2 10^3/uL (4.0-10.0)
[2020-06-10] MEDS ORDERED: FURO40TA2 PO (09:10)
[2020-06-10] MEDS ORDERED: METAL LOCK LOOP XX ONE (09:26)
[2020-06-10 09:31] LABS: ALBUMIN 2.9 GM/DL (3.2-5.2); BILIRUBIN,DIRECT 0.7 MG/DL (0.0-0.2); BILIRUBIN,TOTAL 1.4 MG/DL (0.2-1.0); TOTAL PROTEIN 7.5 GM/DL (6.4-8.2)
--- NOTE | 2020-06-10 09:35 | REP ---
INDICATION: Altered Mental Status. COMPARISON: None. TECHNIQUE: Helical scanning is acquired. 5 mm axial images were reformatted. Coronal MPR images were generated. FINDINGS: Bone window settings demonstrate an intact bony calvarium. There is no evidence of skull fracture or incidental bony calvarial lesion. The visualized paranasal sinuses appear clear. No intraorbital abnormality is seen. On soft tissue window setting images; the lateral, third, and fourth ventricles are normal in size and position. Yang-white differentiation pattern is normal above and below the tentorium. There are is no evidence of intracranial hemorrhage. No mass, edema, infarction, or midline shift is seen. No extra-axial fluid collection is appreciated. There is minimal generalized volume loss. The patient's head appears to be position slightly eccentrically in the scan aperture. IMPRESSION: No acute intracranial abnormality.. <Electronically signed by Perez Marie > 06/10/20 [id number]
--- NOTE | 2020-06-10 09:40 | REP ---
INDICATION: pneumonia, AMS. COMPARISON: Comparison CT study 13 January 2020. Comparison is made with chest x-ray findings from 24 May 2020.. TECHNIQUE: Helical scanning is acquired. 3 mm axial images are generated. Coronal and sagittal MPR and coronal MIP images are generated. 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 On axial lung window settings there are bilateral multifocal patchy perihilar interstitial infiltrates with ground-glass opacity pattern in the upper lobes bilaterally. Lower lobes are spared. There is some alveolar disease in the right middle lobe. No pleural effusion is seen. There is diffuse pericardial thickening which is unchanged from January 13, 2020 study. There is no hilar or mediastinal mass or adenopathy. No extra thoracic mass or adenopathy is seen. There is diffuse subcutaneous edema in the dependent portion of the extra thoracic soft tissues. No bony destructive lesion is evident. IMPRESSION: Bilateral upper lobe and right middle lobe perihilar ground-glass infiltrates consistent with pneumonia. Similar to the May 24, 2020 chest radiograph. Mild diffuse Delia cardial thickening unchanged from January 13, 2020 CT study. <Electronically signed by Perez Marie > 06/10/20 0937
[2020-06-10] MEDS ORDERED: POTASSIUM CHLORIDE 10 MEQ SR TABLET PO ONE (09:45)
--- NOTE | 2020-06-10 09:47 | REP ---
INDICATION: abd pain COMPARISON: Comparison CT study of the abdomen and pelvis 24 May 2020.. TECHNIQUE: Helical scanning is acquired in 4 mm axial images were reformatted. Coronal and sagittal MPR images were generated and reviewed. FINDINGS: The patient is unable to bring his hands out of the scanned field. This results in some spray artifact on the images. A left hip arthroplasty is noted. Bowel gas pattern is unremarkable. The liver and spleen are normal in size and appear to be homogeneous in texture. No abnormality is noted in the pancreas. The adrenal glands are normal bilaterally. There is a large staghorn calculus in the right kidney unchanged. There are several small calculi in the right kidney. No definite hydronephrosis seen. No nephrolithiasis on the left. Crowell catheter is noted in the urinary bladder. There is left colonic diverticulosis without CT evidence of diverticulitis. There is a large ventral hernia trans Rosales unobstructed small bowel loops into the hernia sac. The defect in the anterior abdominal wall measures 6.9 cm in right to left dimension by 6.3 cm cranial to caudal. This is unchanged. There are several slightly prominent inguinal lymph nodes bilaterally unchanged. Normal appearing stable retroperitoneal lymph nodes are seen. No retroperitoneal adenopathy noted. No pleural effusion or ascites seen. No bony destructive lesion is appreciated. There is advanced arthritis of the right hip. IMPRESSION: Large ventral hernia containing unobstructed loops of small bowel. Large staghorn calculus right kidney with multiple smaller intrarenal calculi on the right unchanged. Mild bilateral inguinal lymphadenopathy. This is unchanged as well. Left colonic diverticulosis. <Electronically signed by Perez Marie > 06/10/20 [id number]
[2020-06-10] MEDS ORDERED: AZITHROMYCIN INJ 500 MG, VIAL MATE ADAPTER 1 EACH in D5W 250 ML IV ONE (10:15)
[2020-06-10] MEDS ORDERED: cefTRIAXone SOD 2 GM in D5W MINI-BAG PLUS 50 ML IV ONE (10:15)
[2020-06-10] MEDS ORDERED: KETOROLAC 30 MG/ML 1ML VIAL IV ONE (11:00)
[2020-06-10] MEDS ORDERED: SODIUM CHLORIDE 0.9% 1000ML IV SCH (11:45)
[2020-06-10] MEDS ORDERED: ALBUTEROL 90 MCG/ACT 8GM HFA INHALER INH PRN (11:45)
--- NOTE | 2020-06-10 12:12 | HPEPDOC ---
[facility] Medical History & Physical Date of Admission Jun 10, 2020 Date of Service: Jun 10, 2020 History and Physical CHIEF COMPLAINT: Confusion HISTORY OF PRESENT ILLNESS: This is a 65-year-old male who was birthday was yesterday who was recently discharged from the hospital after an episode of multifocal pneumonia UTI and deconditioning. Patient's presents to the emergency department in a state of confusion it is impossible to obtain a history from her as he is mumbling nonsensical words although he is able to appropriately tracking around the room with his eyes daily appropriate response I received was "in hurts when I pee". The rest of my history is obtained from the emergency room department staff as well as chart review. In the emergency department patient was confirmed to have a UTI as well as multifocal pneumonia same as before and he was started on antibiotics ceftriaxone and azithromycin 1 dose. Blood cultures were drawn and urine culture was sent. Lactate was 1.95. Surprisingly patient's white blood cell count was not elevated and his lactate was not significantly elevated. His ammonia was slightly elevated to 38 with normal AST/ALT and alkaline phosphatase 153. PAST MEDICAL/SURGICAL HISTORY: From chart review: Atrial fibrillation on Xarelto Depression Morbid obesity Lower extremity swelling PVD Anemia Insomnia Left hip replacement Hernia repair Cholecystectomy Appendectomy SOCIAL HISTORY: This is from chart review: Patient is a smoker for 46 years quit last year. Denies alcohol or illicit drug use. 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 Uses a walker at baseline. FAMILY HISTORY: Chart Reviewed and none contributory to this admission ALLERGIES: Please see below. REVIEW OF SYSTEMS: I'm unable to obtain a review of systems due to the patient's mumbling and confusion HOME MEDICATIONS: Please see below. PHYSICAL EXAMINATION: Constitutional: Patient is confused opens his eyes and tracks me around the room appropriately but he is mumbling and nonsensical ENT: Sclera are clear. Respiratory: His body habitus is very large and is difficult to auscultate his lungs I can't hear obvious crackles or wheezing. No respiratory distress. No use of accessory muscles. Cardiovascular: His heart sounds are distant due to his large body habitus and is difficult to accurately auscultate the sound irregular which is consistent with his history of atrial fibrillation Gastrointestinal: Abdomen is very large due to obesity with a large ventral hernia that appears nontender to palpation he has positive bowel sounds Musculoskeletal: His lower extremities appear to be chronically edematous with lots of dry skin that of chronic venous stasis Neurologic: He is not following my commands, unable to perform a neurological exam but he seems to move all 4 extremities freely Mental Status: Confused Skin: Lower extremities dry skin that of chronic venous stasis. Erythema near axilla and other skin folds likely due to poor hygiene and fungal infection. LABORATORY DATA: See below. IMAGING: CT abdomen/pelvis impression: Large ventral hernia containing unobstructed loops of small bowel. Large staghorn calculus right kidney with multiple smaller intrarenal calculi on the right unchanged. Mild bilateral inguinal lymphadenopathy. This is unchanged as well. Left colonic diverticulosis. CT chest impressions: Bilateral upper lobe and right middle lobe perihilar ground-glass infiltrates consistent with pneumonia. Similar to the May 24, 2020 chest radiograph. Mild diffuse Delia cardial thickening unchanged from January 13, [address] had impressions:No acute intracranial abnormality. MICROBIOLOGY: Please see below. ASSESSMENT/PLAN 65-year-old morbidly obese male with multiple medical problems who presents to the hospital with confusion found to have bilateral pneumonia and urinary tract infection admitted for further medical management. # Acute encephalopathy: Likely multifactorial due to underlying infection UTI/pneumonia. Ammonia slightly elevated will give lactulose. Fu Liver US. # Bilateral community-acquired pneumonia: CT chest shows similar appearance to May 24. We'll continue empiric antibiotics vancomycin and Zosyn. Fu BCx. Afebrile no leukocytosis. # UTI/dysuria: Crowell was placed on last admission by Dr. Live urologist. Change with new Crowell. Did not follow-up with urology. On empiric antibiotics. Follow up urine culture. CT abdomen/pelvis show Large staghorn calculus right kidney with multiple smaller intrarenal calculi on the right unchanged. May require another urologic consult if he fails to show improvement. # Atrial fibrillation: Rate controlled. Continue metoprolol 50 daily at bedtime and Xarelto. # Lower extremity lymphedema chronic swelling and chronic venous stasis: Continue home Lasix. Fluid restriction PO 1800 mL daily. Low-salt diet. Monitor ins and outs. # Skin irritation at folds including axilla and groin: Yeast infection probably from poor hygiene. Continue nystatin powder when necessary. # Depression: Continue Zoloft # Stage II decubitus ulcers on buttocks: Wound care. Appears clean and not requiring debridement. # Morbid obesity: BMI greater than 60. This complicates care. Puts patient at high risk of severe illness and slower recovery. This needs to be addressed when he is better with his primary care physician. # Possible undiagnosed underlying NETTE: sleep study OP. # Anemia: Monitor hemoglobin. Appears chronic. # DVT prophylaxis: [facility] Vital Signs Vital Signs Date Time Temp Pulse Resp B/P (MAP) Pulse Ox O2 Delivery O2 Flow Rate FiO2 06/10/20 11:23 77 06/10/20 11:08 25 100 Room Air 06/10/20 11:01 148/81 (103) 06/10/20 08:25 99.3 Laboratory Data Labs 24H Laboratory Tests 2 06/10/20 08:49: Immature Granulocyte % (Auto) 0.9, Neutrophils (%) (Auto) 73.3H, Lymphocytes (%) (Auto) 10.6L, Monocytes (%) (Auto) 12.0H, Eosinophils (%) (Auto) 2.8, Basophils (%) (Auto) 0.4, Neutrophils # (Auto) 6.7, Lymphocytes # (Auto) 1.0L, Monocytes # (Auto) 1.1H, Eosinophils # (Auto) 0.3, Basophils # (Auto) 0.0, Nucleated Red Blood Cells % (auto) 0.0, Total Bilirubin 1.4H, Direct Bilirubin 0.7H, Aspartate Amino Transf (AST/SGOT) 27, Alanine Aminotransferase (ALT/SGPT) 16, Alkaline Phosphatase 153H, Ammonia 38H, KN-Hqd-E-Type Natriuretic Peptide 859H, Total Protein 7.5, Albumin 2.9L, Albumin/Globulin Ratio 0.6 06/10/20 08:59: POC Glucose (Misc Panel) 106H, POC Sodium (Misc Panel) 139, POC Potassium (Misc Panel) 3.1L, POC Chloride (Misc Panel) 99, POC Total CO2 (Misc Panel) 29.0H, POC Blood Urea Nitrogen (Misc Panel 5L, POC Ionized Calcium (Misc Panel) 4.2L, POC Creatinine (Misc Panel) 0.7, POC Hematocrit (Misc Panel) 33.0L 06/10/20 09:00: POC Total CO2 (Misc Panel) 29.0H, POC pH (Misc Panel) 7.477H, POC Base Excess (Misc Panel) 4.0H, POC Saturated Percent O2 (Misc) 97, POC pO2 (Misc Panel) 80.0, POC pCO2 (Misc Panel) 37.2, POC HCO3 (Misc Panel) 27.5H, POC Lactate (Misc Panel) 1.95, POC Troponin I (Misc) 0.00 06/10/20 09:41: Urine Color ARNOLD, Urine Appearance CLOUDYH, Urine pH 6.0, Urine Specific [place] 1.024, Urine Protein 3+H, Urine Glucose (UA) NEGATIVE, Urine Ketones TRACEH, Urine Blood 3+H, Urine Nitrite NEGATIVE, Urine Bilirubin 1+H, Urine Urobilinogen 4.0H, Urine Leukocyte Esterase 2+H, Urine WBC (Auto) 175H, Urine RBC (Auto) TNTCH, Urine Hyaline Casts (Auto) 0, Urine Bacteria (Auto) 1+H, Urine Squamous Epithelial Cells 0, Urine Mucus (Auto) LARGE, Urine Sperm (Auto) CBC/BMP Laboratory Tests 06/10/20 08:49 Microbiology Microbiology 06/10/20 Urine Culture, Received Pending 06/10/20 Respiratory Virus Panel (PCR) (ANATOLIY) - Final, Complete 06/10/20 Blood Culture, Received Pending 06/10/20 Blood Culture, Received Pending Home Medications Scheduled Furosemide (Furosemide) 40 Mg Tablet, 40 MG PO DAILY Metoprolol Succinate (Metoprolol Succinate) 50 Mg Tab.er.24h, 50 MG PO QHS Rivaroxaban (Xarelto) 20 Mg Tablet, 20 MG PO QHS Sertraline HCl (Sertraline HCl) 100 Mg Tablet, 100 MG PO QHS Scheduled PRN Nystatin (Nystatin Powder) 15 Gm Powder, 1 DOSE TOP TID PRN for RASH APPLY TO STOMACH FOLDS AND UNDERARMS Allergies Coded Allergies: No Known Allergies (Verified , 07/12/07) A-FIB/CHADSVASC A-FIB History Current/History of A-Fib/PAF?: No MIGELSEJOSE ALBERTO Souza MD Jun 10, 2020 11:58
[2020-06-10] MEDS ORDERED: MAALOX 30 ML SUSP *UDC PO PRN (12:15)
[2020-06-10] MEDS ORDERED: MOM 30ML SUSPENSION UDC PO PRN (12:15)
[2020-06-10] MEDS ORDERED: NYSTATIN 100,000 UNITS/GM TOPICAL PWD 15 GM TOP PRN (12:30)
--- OUTSIDE RECORDS SUMMARY | 2020-06-10 12:45 | CCD ---
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 Name Role Phone Harley Gurrola MD Unavailable Unavailable Harley Gurrola MD Unavailable Unavailable Harley Gurrola MD Unavailable Unavailable Harley Gurrola MD Unavailable Unavailable Harley Gurrola MD Unavailable Unavailable Harley Gurrola MD Unavailable Unavailable Harley Gurrola MD Unavailable Unavailable Harley Gurrola MD Unavailable Unavailable IzabelaHarley MD Unavailable Unavailable [place] MD Unavailable Unavailable [place] MD Unavailable Unavailable IzabelaHarley MD Unavailable Unavailable [place] MD Unavailable Unavailable [place] MD Unavailable Unavailable IzabelaHarley MD Unavailable Unavailable IzabelaHarley MD Unavailable Unavailable [place] MD Unavailable Unavailable [place] MD Unavailable Unavailable IzabelaHarley MD Unavailable Unavailable IzabelaHarley MD Unavailable Unavailable IzabelaHarley MD Unavailable Unavailable IzabelaHarley MD Unavailable Unavailable IzabelaHarley MD Unavailable Unavailable [place] MD Unavailable Unavailable IzabelaHarley MD Unavailable Unavailable [place] MD Unavailable Unavailable IzabelaHarley MD Unavailable Unavailable [place] MD Unavailable Unavailable IzabelaHarley MD Unavailable Unavailable IzabelaHarley MD Unavailable Unavailable IzabelaHarley MD Unavailable Unavailable [place] MD Unavailable Unavailable IzabelaHarley MD Unavailable Unavailable [place] MD Unavailable Unavailable [place] MD Unavailable Unavailable IzabelaHarley MD Unavailable Unavailable IzabelaHarley MD Unavailable Unavailable IzabelaHarley MD Unavailable Unavailable [place] MD Unavailable Unavailable IzabelaHarley MD Unavailable Unavailable IzabelaHarley MD Unavailable Unavailable IzabelaHarley MD Unavailable Unavailable [place] MD Unavailable Unavailable IzabelaHarley tate MD Unavailable Unavailable [place] MD Unavailable Unavailable [place] MD Unavailable Unavailable IzabelaHarley MD Unavailable Unavailable IzabelaHarley MD Unavailable Unavailable [place] MD Unavailable Unavailable [place] MD Unavailable Unavailable IzabelaHarley tate MD Unavailable Unavailable IzabelaHarley MD Unavailable Unavailable IzabelaHarley MD Unavailable Unavailable IzabelaHarley MD Unavailable Unavailable IzabelaHarley MD Unavailable Unavailable [place] MD Unavailable Unavailable [place] MD Unavailable Unavailable IzabelaHarley MD Unavailable Unavailable IzabelaHarley MD Unavailable Unavailable [place] MD Unavailable Unavailable IzabelaHarley MD Unavailable Unavailable [place] MD Unavailable Unavailable IzabelaHarley MD Unavailable Unavailable [place] MD Unavailable Unavailable IzabelaHarley MD Unavailable Unavailable IzabelaHarley MD Unavailable Unavailable IzabelaHarley MD Unavailable Unavailable IzabelaHarley MD Unavailable Unavailable [place] MD Unavailable Unavailable IzabelaHarley MD Unavailable Unavailable [place] MD Unavailable Unavailable IzabelaHarley MD Unavailable Unavailable IzabelaHarley MD Unavailable Unavailable [place] MD Unavailable Unavailable IzabelaHarley MD Unavailable Unavailable IzabelaHarley MD Unavailable Unavailable IzabelaHarley MD Unavailable Unavailable [place] MD Unavailable Unavailable [place] MD Unavailable Unavailable Izabela F Lanre FIERRO Unavailable Unavailable [place] MD Unavailable Unavailable [place] F Lanre FIERRO Unavailable Unavailable IzabelaHarley MD Unavailable Unavailable IzabelaHarley MD Unavailable Unavailable [place] MD Unavailable Unavailable IzabelaHarley MD Unavailable [...] Unavailable Unavailable ImeldaNataliia harris MD Unavailable Unavailable Natailia Segura MD Unavailable Unavailable Nataliia Segura MD [...] Nataliia Segura MD Unavailable Unavailable Brock, Jeannette [employer] Unavailable Unavailable Brock, Jeannette [facility] Unavailable Unavailable Brock, Jeannette [employer] Unavailable Unavailable Brock, Jeannette [facility] Unavailable Unavailable Brock, Jeannette [facility] Unavailable Unavailable Brock, Jeannette [facility] Unavailable Unavailable Brock, Jeannette [facility] Unavailable Unavailable Brock, Jeannette [facility] Unavailable Unavailable Brock, Jeannette [facility] Unavailable Unavailable Brock, Jeannette [facility] Unavailable Unavailable Brock, Jeannette [facility] Unavailable Unavailable Brock, Jeannette [facility] Unavailable Unavailable Brock, Jeannette [facility] Unavailable Unavailable Brock, Jeannette [facility] Unavailable Unavailable Brock, Jeannette [facility] Unavailable Unavailable Brock, Jeannette [facility] Unavailable Unavailable Brock, Jeannette [facility] Unavailable Unavailable Brock, Jeannette [facility] Unavailable Unavailable Brock, Jeannette [facility] Unavailable Unavailable Brock, Jeannette [facility] Unavailable Unavailable Brock, Jeannette [facility] Unavailable Unavailable Brock, Jeannette [facility] Unavailable Unavailable Brock, Jeannette [facility] Unavailable Unavailable Brock, Jeannette [facility] Unavailable Unavailable Brock, Jeannette [facility] Unavailable Unavailable Brock, Jeannette [facility] Unavailable Unavailable Brock, Jeannette [facility] Unavailable Unavailable PICKERAL JR, J MARIAH PA-C [...] J MARIAH PA-C Unavailable Unavailable Ancelmo, Tiffany [facility] Unavailable Unavailable Ancelmo, Tiffany [facility] Unavailable Unavailable Ancelmo, Tiffany [facility] Unavailable Unavailable Ancelmo, Tiffany [facility] Unavailable Unavailable Ancelmo, Tiffany [facility] Unavailable Unavailable Ancelmo, Tiffany [employer] Unavailable Unavailable Ancelmo, Tiffany [employer] Unavailable Unavailable Ancelmo, Tiffany [employer] Unavailable Unavailable Ancelmo, Tiffany [employer] Unavailable Unavailable Ancelmo, Tiffany [facility] Unavailable Unavailable Ancelmo, Tiffany [facility] Unavailable Unavailable Ancelmo, Tiffany [facility] Unavailable Unavailable Ancelmo, Tiffany [employer] Unavailable Unavailable Ancelmo, Tiffany [employer] Unavailable Unavailable Ancelmo, Tiffany [employer] Unavailable Unavailable Ancelmo, Tiffany [employer] Unavailable Unavailable Ancelmo, Tiffany [employer] Unavailable Unavailable Ancelmo, Tiffany [facility] Unavailable Unavailable Aneclmo, Tiffany [employer] Unavailable Unavailable Ancelmo, Tiffany [employer] Unavailable Unavailable Ancelmo, Tiffany [employer] Unavailable Unavailable Ancelmo, Tiffany [facility] Unavailable Unavailable Ancelmo, Tiffany [facility] Unavailable Unavailable Ancelmo, Tiffany [facility] Unavailable Unavailable Ancelmo, Tiffany [facility] Unavailable Unavailable Ancelmo, Tiffany [facility] Unavailable Unavailable Ancelmo, Tiffany [facility] Unavailable Unavailable Ancelmo, Tiffany [facility] Unavailable Unavailable Ancelmo, Tiffany [facility] Unavailable Unavailable Ancelmo, Tiffany [facility] Unavailable Unavailable Ancelmo, Tiffany [facility] Unavailable Unavailable Ancelmo, Tiffany [facility] Unavailable Unavailable Ancelmo, Tiffany [facility] Unavailable Unavailable Ancelmo, Tiffany [facility] Unavailable Unavailable Ancelmo, Tiffany [facility] Unavailable Unavailable Ancelmo, Tiffany [facility] Unavailable Unavailable Ancelmo, Tiffany [facility] Unavailable Unavailable Ancelmo, Tiffany [facility] Unavailable Unavailable Ancelmo, Tiffany [facility] Unavailable Unavailable Ancelmo, Tiffany [facility] Unavailable Unavailable Ancelmo, Tiffany [facility] Unavailable Unavailable Ancelmo, Tiffany [facility] Unavailable Unavailable Ancelmo, Tiffany [facility] Unavailable Unavailable Ancelmo, Tiffany [facility] Unavailable Unavailable Ancelmo, Tiffany [facility] Unavailable Unavailable Ancelmo, Tiffany [employer] Unavailable Unavailable Ancelmo, Tiffany [facility] Unavailable Unavailable Ancelmo, Tiffany [facility] Unavailable Unavailable Ancelmo, Tiffany [facility] Unavailable Unavailable Ancelmo, Tiffany [facility] Unavailable Unavailable Ancelmo, Tifafny [facility] Unavailable Unavailable Ancelmo, Tiffany [facility] Unavailable Unavailable Ancelmo, Tiffany [facility] Unavailable Unavailable Bel Alton, V EAGLE PA-C Unavailable Unavailable Bel Alton, V EAGLE PA-C Unavailable Unavailable Bel Alton, V EAGLE PA-C Unavailable Unavailable Bel Alton, V EAGLE PA-C Unavailable Unavailable Bel Alton, V EAGLE PA-C Unavailable Unavailable Bel Alton, V EAGLE PA-C Unavailable Unavailable Bel Alton, V EAGLE PA-C Unavailable Unavailable Re-disclosure Warning [...] is protected by Article 27-F of the [facility] Public Health law. If you continue you may have access to information: Regarding HIV / AIDS; Provided by facilities licensed or operated by the [facility] Office of Mental Health; or Provided by the [facility] Office for People With Developmental Disabilities. If such information is present, then the following [facility] mandated warning applies: This information has [...] law may result in a fine or penitentiary sentence or both. A general authorization for the release of medical or other information is NOT sufficient authorization for further disc losure. Allergies and Adverse Reactions Type Description Substance Reaction Status Data Source(s ) No Known Drug Allergies No Known Drug Allergies No Known Drug Aller gies active NETSMART ([facility] ) Family History Family Member Name Family Member Gender Family Member Status Date o f Status Description Data Source(s) Unknown Male Problem MEDENT ([facility] ) Encounters Encounter Providers Location Date Indications Data Source(s ) 06/04/2020 12:00:00 AM EST - 021 02:38:14 PM EST NETSMART ([facility]) Outpatient Attender: EAGLE TURNERCReferrer: Arturo CARROLL.VIC-DANA 05/23/2020 12:00:00 AM EST [facility] Outpatient Attender: Jeannette Stein 01:40:00 PM EST MEDENT ([facility] ) [place] [address] [address] 04/24/2020 12:00:00 AM EST eCW1 ([facility]) Outpatient Attender: MARIAH Setin 1 05/30/2019 01:00:00 PM EST MEDENT ([facility] ) [place] [address] [address] 03/28/2020 12:00:00 AM EST eCW1 ([facility]) [place] [address] [address] 03/23/2020 12:00:00 AM EST eCW1 ([facility]) [place] [address] [address] 03/23/2020 12:00:00 AM EST eCW1 ([facility]) [place] [address] [address] 03/21/2020 12:00:00 AM EST eCW1 ([facility]) Outpatient Attender: MARIAH Stein 1 02:00:00 PM EDT MEDENT ([facility] ) Outpatient Attender: Lucila Leach MD SJP.VIC-SJP.VIC 11/2019 12:00:00 AM EDT - 02/15/2020 01:50:37 PM EDT [facility] Outpatient Attender: MARIAH Stein 0 01/26/2020 11:20:00 AM EDT MEDENT ([facility] ) Outpatient Attender: Tiffany Stein 0 10/20/2019 02:00:00 PM EDT MEDENT ([facility] ) Outpatient 07/12/2019 03:15:00 PM EST [facility] Outpatient Attender: Gia Stein 10:00:00 AM EST MEDENT ([facility] ) Outpatient Attender: Luis Gold MD CPSCAORT-CPSCAORT 11:20:00 AM EST - 06/10/2019 11:21:[address] [facility] Patient discharged. Immunizations Vaccine Date Status Description Data Source(s) Influenza, injectable, MDCK, preservative free, marip[facility] valent 03/30/2020 01:20:00 PM EST completed [facility] Medications Medication Brand Name Start Date Product Form Dose Route Admi nistrative Instructions Pharmacy Instructions Status Indications Reaction Description Data Source(s) Sertraline HCl 100 MG Sertraline HCl 06/04/2020 12:00:00 AM EST 1.0 {tablet} completed NETSMART ( [facility]) Acetaminophen Acetaminophen 06/04/2020 12:00:00 AM EST 500.0 {mg } completed NETSMART ([facility]) Furosemide 40 MG Furosemide 06/04/2020 12:00:00 AM EST 0 {tablet } completed NETSMART ([facility]) Metoprolol Tartrate 50 MG Metoprolol Tartrate 06/04/2020 12:00:00 A M EST 0 {tablet} completed NETSMART ([facility]) Nystatin Powder Nystatin Powder 06/04/2020 12:00:00 AM EST 15.0 {gm} completed NETSMART ([facility]) Xarelto 20 MG Xarelto 06/04/2020 12:00:00 AM EST 1.0 {tablet} completed NETSMART ([facility]) Doxycycline Hyclate 100 MG Doxycycline Hyclate 06/04/2020 12:00:00 AM EST 0 {tablet} completed NETSMART ([facility]) Sertraline 50 MG Oral Tablet sertraline (ZOLOFT) 50 MG tablet sertraline (ZOLOFT) 50 MG tablet 05/23/2020 12:00:00 AM EST 50 mg Oral active Take 1 tablet (50 mg total) by mouth daily [facility] rivaroxaban 20 MG Oral Tablet rivaroxaban (XARELTO) 20 MG TABS rivaroxaban (XARELTO) 20 MG TABS 05/23/2020 12:00:00 AM EST 20 mg Oral active Take 1 tablet (20 mg total) by mouth daily [facility] Administration Of Flu Vaccine 03/30/2020 12:00:00 [...] tablet (20 mg total) by mouth daily [facility] 24 HR metoprolol succinate 50 MG Extended Release Oral Tablet [Toprol] Toprol XL 02/27/2020 12:00:00 AM EDT ORAL active MEDENT ([facility]) Sertraline 100 MG Oral Tablet Sertraline HCL 02/27/2020 12:00:00 AM E DT ORAL active [facility] Zolpidem tartrate 10 MG Oral Tablet zolpidem (AMBIEN) 10 MG tablet zolpidem (AMBIEN) 10 MG tablet 01/30/2020 12:00:00 AM EDT 10 mg a ctive 10 mg [facility] NITROFURANTOIN, MACROCRYSTALS 100 MG Oral Capsule Nitrofuran toin Macrocrystal 01/26/2020 12:00:00 AM EDT ORAL completed MEDENT ([facility]) Sertraline 50 MG Oral Tablet sertraline (ZOLOFT) 50 MG tablet sertraline (ZOLOFT) 50 MG tablet 01/23/2020 12:00:00 AM EDT 50 mg Oral aborted Take 50 mg by mouth daily [facility] 50 mg 06/17/2019 12:00:00 AM EST [...] 12:00:00 AM EST ORAL active MEDENT ([facility]) 5 mg 06/08/2019 12:00:00 AM EST [...] relationship to mitchell Policy Mitchell Plan Information WELLCARE [id number] SP [id number] MEDICARE [id number] SP [id number] WELLCARE MEDICARE [id number] 24 [id number] WELLCARE MEDICARE [id number] Cara 18 [id number] MEDICARE [id number] SP [id number] A MEDICARE [id number] SP [id number] MEDICARE [id number] SP [id number] A WELLCARE O [id number] S [id number] WELLCARE [id number] SP [id number] WELLCARE [id number] Other [id number] Wellcare Health Plans Inc Commercial [id number] Self [id number] Wellcare/Todays Optr Commercial [id number] Self [id number] [employer] [employer] Commercial [id number] Self [id number] MEDICARE A [id number] Self [id number] A WELLCARE [id number] SP [id number] Wellcare/Todays Optmcr Commercial [id number] Self [id number] Wellcare Today's Options Commercial [id number] Self [id number] TODAYS OPTIONS [id number] SP [id number] [place]i Chu Shu Commercial [id number] Self [id number] [place]i Chu Shu Commercial [id number] Self [id number] Yemeni Gemfire [id number] Self [id number] TODAYS OPTIONS [id number] SP [id number] Yemeni Gemfire [id number] Self [id number] Todays Option Commercial [id number] Self [id number] Medicare Part A [place] Medicare Primary [id number] Self [id number] MEDICARE PART A-O/P [id number] 18 [id number] [place] [id number] 18 [id number] MEDICARE PART A [facility] [id number] 18 [id number] TODAYS OPTION -RECURRING [id number] CIGNA HEALTHCARE -RECURRING [id number] 18 [id number] CIGNA HEALTHCARE -RECURRING [id number] 18 [id number] TODAYS OPTION -RECURRING [id number] 18 [id number] MEDICARE -O/P [id number] 18 [id number] MEDICARE [id number] SP [id number] A MEDICARE C [id number] S [id number] A MEDICARE PART A-CLINIC [id number] 18 [id number] MEDICARE OUTPATIENT M [id number] S [id number] WELLCARE [facility] PLANS O [id number] S [id number] UNAVAILABLE UNAVAILA BLE Problems, Conditions, and Diagnoses Code Display Name Description Problem Type Effective Dates Data Source(s) Z46.6 Encounter for fitting and adjustment of urinary device Encounter for fitting and adjustment of urinary device Problem 06/04/2020 12:00:00 AM EST NETSMART ([facility]) Z79.01 intermediate (current) use of anticoagulant s oil heaterman (current) use of anticoagulants Problem 06/04/2020 12:00:00 AM EST NETSMART ([facility]) Z91.81 History of falling History of falling Problem 12:00:00 AM EST NETSMART ([facility]) Z87.891 Personal history of nicotine dependence Personal history of nicotine dependence Problem 06/04/2020 12:00:00 AM EST NETSMART ([facility]) Z68.44 Body mass index [BMI] 60.0-69.9, adult B beata mass index [BMI] 60.0-69.9, adult Problem 06/04/2020 12:00:00 AM EST NETSMART ([facility]) Z96.642 Presence of left artificial hip joint Pr esence of left artificial hip joint Problem 06/04/2020 12:00:00 AM EST NETSMART ([facility]) J18.9 Pneumonia, unspecified organism Pneumonia, unspecified organism Problem 06/04/2020 12:00:00 AM EST NETSMART ([facility] ) N20.0 Calculus of kidney Calculus of kidney Problem 12:00:00 AM EST NETSMART ([facility]) R33.8 Other retention of urine Other retention of urine Prob chele 06/04/2020 12:00:00 AM EST NETSMART ([facility] ) R29.6 Repeated falls Repeated falls Problem 06/04/2020 12:00: 00 AM EST NETSMART ([facility]) I48.91 Unspecified atrial fibrillation Unspecified atrial fib rillation Problem 06/04/2020 12:00:00 AM EST NETSMART ([facility] ) I50.32 Chronic diastolic (congestive) heart cain lure Chronic diastolic (congestive) heart failure Problem 06/04/2020 12:00:00 AM EST NETSMA RT ([facility]) K59.04 Chronic idiopathic constipation Chronic idiopathic con stipation Problem 06/04/2020 12:00:00 AM EST NETSMART ([facility] ) K57.30 Diverticulosis of large inte miah without perforation or abscess without bleeding Diverticulosis of large intestine withou t perforation or abscess without bleeding Problem 06/04/2020 12:00:00 AM EST NETSMART ([facility]) K43.9 Ventral hernia without obstruction or ga ngrene Ventral hernia without obstruction or gangrene Problem 06/04/2020 12:00:00 AM EST NETSMART ([facility]) M47.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, lumbar region Spondylosis without myelopathy or radiculopathy, lumbar region Problem 06/04/2020 12:00:00 AM EST NETSMART ([facility] ) M16.11 Unilateral primary osteoarthritis, right hip Unilateral primary osteoarthritis, right hip Problem 06/04/2020 12:00:00 AM EST NETSMAR T ([facility]) G47.00 Insomnia, unspecified Insomnia, unspecified Problem 06/04/2020 12:00:00 AM EST NETSMART ([facility] ) G47.33 Obstructive sleep apnea (adult) (pediatr ic) Obstructive sleep apnea (adult) (pediatric) Problem 06/04/2020 12:00:00 AM EST NETSMART ([facility]) E66.01 Morbid (severe) obesity due to excess ca lories Morbid (severe) obesity due to excess calories Problem 06/04/2020 12:00:00 AM EST NETSMART ( [facility]) 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 Problem 03/21/2020 12:00:00 AM EST eCW1 ([facility]) E66.01 Morbid obesity Morbid obesity [id number] 02/15/2020 12:00: 00 AM EDT [facility] I48.19 Persistent atrial fibrillation Persistent atrial fibri llation [id number] 02/15/2020 12:00:00 AM EDT [facility] I48.19 Other persistent atrial fibrillation Oth er persistent atrial fibrillation Diagnosis 02/15/2020 01:01:44 PM EDT [facility] E66.01 Morbid (severe) obesity due to excess ca lories MORBID (SEVERE) OBESITY DUE TO EXCESS CALORIES Diagnosis 06/10/2019 11:20:00 AM [facility] Z96.642 Presence of left artificial hip joint AR ESENCE OF LEFT ARTIFICIAL HIP JOINT Diagnosis 06/10/2019 11:20:00 AM [facility] M16.11 Unilateral primary osteoarthritis, right hip UNILATERAL PRIMARY OSTEOARTHRITIS, RIGHT HIP Diagnosis 06/10/2019 11:20:00 AM [facility] M25.551 Pain in right hip PAIN IN RIGHT HIP Diagnosis 06/10 11:20:00 AM [facility] Surgeries/Procedures Procedure Description Date Indications Data Source(s) POCT AMB EKG POCT AMB EKG Routine 05/23/2020 5:28 PM EST Persistent atrial fibrillation 05/23/2020 10:28:00 PM EST Pe rsistent atrial fibrillation [facility] Persistent atrial fibrillation ECG ROUTINE ECG W/LEAST 12 LDS W/I&R 01/26/2020 12:00: 00 AM EDT [facility] ([facility]) [facility] outpatient clinic visit for assessment and ma nagement of a patient Hospital Outpatient Clinic Visit 06/10/2019 12:00:00 AM [facility] [address] X-RAY EXAM HIP UNI 2-3 VIEWS 06/10/2019 12:00:00 AM ES T [facility] Results ID Date Data Source [id number] 05/24/2020 04:52:00 AM EST [facility] Name Value Range Interpretation Code Description Data Marisela rce(s) Supporting Document(s) SARS coronavirus 2 RNA [Presence] in Res piratory specimen by OCTAVIA with probe detection NEGATIVE [facility] This lab was ordered by [facility] a nd reported by [facility]. ID Date Data Source [id number] 04/06/2020 02:21:00 PM EST MEDENT ([facility]) Name Value Range Interpretation Code Description Data Marisela rce(s) Supporting Document(s) Laboratory test finding (navigational concept) Laboratory test result MEDENT ([facility]) A false negative result may occur [...] pathogens. DISCLAIMER: Testing was performed using the [employer] SARS-CoV-2 test. This test was developed and its performance characteristics determined by [employer]. This test has not been FDA cleared [...] or revoked sooner. ID Date Data Source [id number] 04/06/2020 12:25:00 PM EST MEDENT ([facility]) Name Value Range Interpretation Code Description Data Marisela rce(s) Supporting Document(s) Appearance, Urine RFX Laboratory test result MEDENT ([facility]) PH,Urine RFX 6.0 units 5.0-9.0 MEDENT ([facility]) Specific [place] Ur Auto RFX 1.013 1.002-1.035 [facility] Color, Urine RFX Laboratory [facility] Ketone, Urine Auto RFX Laboratory test [facility] Protein, Urine Auto RFX Laboratory test [facility]) Glucose, Urine (Ua) Auto RFX Laboratory test result [facility] center) Nitrite, Urine Auto RFX Laboratory test result [facility] ([facility]) Bilirubin, Urine Auto RFX Laboratory test [facility] Urobilinogen, Urine Auto RFX 4.0 mg/dL 0.0-2.0 [facility] Blood, Urine Blood RFX Laboratory test result [facility] ([facility]) Leukocyte Esterase Ur Auto RFX Laboratory test result [facility] ([facility]) WBC, Urine Auto RFX 63 /HPF 0-3 [facility] ([facility]) Squam Epithelial Cell Ur Aurfx 2 /HPF 0-6 [facility] ([facility]) Bacteria, Urine Auto RFX Laboratory test result [facility] ([facility]) RBC, Urine Auto RFX Laboratory test result 0-3 [facility] Hyaline Cast, Urine Auto RFX 0 /LPF 0-1 [facility] ([facility]) Mucus, Urine RFX Laboratory test result [facility] ([facility]) ID Date Data Source [id number] 04/06/2020 11:44:00 AM EST [facility] ([facility]) Name Value Range Interpretation Code Description Data Marisela rce(s) Supporting Document(s) Blood Type Laboratory test result [facility] ([facility]) AB Screen (Indirect Venita)Vis Laboratory test result [facility] ([facility]) ID Date Data Source [id number] 04/06/2020 11:44:00 AM EST [facility] Name Value Range Interpretation Code Description Data Marisela rce(s) Supporting Document(s) Lipoprotein lipase [Enzymatic activity/volume] in Serum or Plasm a 45 U/L 73-393 [facility] ([facility]) <content>note:<nlbl:demographic_changed> </content>
<content></content> Amylase [Enzymatic activity/volume] in Serum or Plasma 20 U/L 25- 115 [facility] ([facility]) <content>note:<nlbl:demographic_changed> </content>
<content></content> ID Date Data Source [id number] 04/06/2020 11:44:00 AM EST [facility] ([facility]) Name Value Range Interpretation Code Description Data Marisela rce(s) Supporting Document(s) Glucose, Fasting 115 mg/dL 70-100 [facility] ([facility] Glomerular Filtration Rate Laboratory test result [facility] ([facility]) <content>Units are mL/min/1.73 m2</content>
<content></content>
<content>Chronic Kidney Disease Staging per NKF:</content>
<content></content>
<content>Stage I & II GFR >=60 Normal to Mildly Decreased</content>
<content>Stage III GFR 30-59 Moderately Decreased</content>
<content>Stage IV GFR 15-29 Severely Decreased</content>
<content>Stage V GFR <15 Very Little GFR Left</content>
<content>ESRD GFR <15 on HVAC DESIGNER</content>
<content></content> Blood Urea Nitrogen 10 mg/dL 7-18 [facility] ([facility]) Creatinine For GFR 0.96 mg/dL 0.70-1.30 [facility] ([facility]) Potassium Serum 3.8 meq/L 3.5-5.1 [facility] ([facility]) Carbon Dioxide Level 28 meq/L 21-32 [facility] ([facility]) Chloride Level 104 meq/L 98-107 [facility] ([facility]) Sodium Level 138 meq/L 136-145 [facility] ([facility]) Calcium Level 8.1 mg/dL 8.8-10.2 [facility] ([facility]) Anion Gap 6 meq/L 8-16 [facility] ([facility]) ID Date Data Source [id number] 04/06/2020 11:44:00 AM EST [facility] ([facility]) Name Value Range Interpretation Code Description Data Marisela rce(s) Supporting Document(s) Ast/Sgot 24 U/L 7-37 [facility] ([facility]) Alt/SGPT 13 U/L 12-78 [facility] ([facility]) Alkaline Phosphatase 133 U/L 45-117 [facility] ([facility]) Bilirubin,Direct 0.4 mg/dL 0.0-0.2 [facility] ([facility]) Bilirubin,Total 0.9 mg/dL 0.2-1.0 [facility] ([facility]) Albumin/Globulin Ratio 0.6 [facility] Total Protein 7.7 GM/DL 6.4-8.2 [facility] Albumin 2.9 GM/DL 3.2-5.2 [facility] ([facility]) ID Date Data Source [id number] 04/06/2020 11:44:00 AM EST [facility] ([facility]) Name Value Range Interpretation Code Description Data Marisela rce(s) Supporting Document(s) MB/CK Relative Index 2.78 [facility] ([facility]) <content>DIAGNOSIS CRITERIA</content>
<content>MMB ng/ml Relative Index (RI)</content>
<content>NON-AMI < or = 5 N/A</content>
<content>DAWSON ZONE > 5 < or = 4</content>
<content>AMI > 5 > 4</content>
<content></content> CK-MB Value Mass Laboratory test result [facility] ([facility]) CPK Creatine Phosphokinase 36 U/L 39-308 [facility] ([facility]) Troponin I Laboratory test result [facility] ([facility]) <content>Troponin I Reference Interval f or Siemens [place] LOCI:</content>
<content></content>
<content>99th Percentile= 0.00-0.045 ng/ml</content>
<content></content>
<content>Risk Stratification:</content>
<content><= 0.10 ng/ml Decreased Risk for Adverse Clinical</content>
<content>Events.</content>
<content>0.10-1.50 ng/ml Increased Risk for Adverse Clinical</content>
<content>Events. Evaluation of additional</content>
<content>criterion and/or repeat testing in 2-6</content>
<content>hours is suggested to rule out myocardial</content>
<content>damage.</content>
<content>>= 1.50 ng/ml Indicative of Myocardial Injury.</content>
<content></content> ID Date Data Source [id number] 04/06/2020 11:44:00 AM EST [facility] ([facility]) Name Value Range Interpretation Code Description Data Marisela rce(s) Supporting Document(s) White Blood Count 8.7 10 4.0-10.0 [facility] ([facility]) Mean Corpuscular Volume 96.4 fl 80.0-96.0 [facility] ([facility]) Hematocrit 37.8 % 42.0-52.0 [facility] Hemoglobin 11.6 g/dL 13.5-17.5 [facility] ([facility]) Red Blood Count 3.92 10 4.30-6.10 [facility] ([facility]) Red Cell Distribution Width 15.4 % 11.5-14.5 [facility] ([facility]) Mean Corpuscular HGB Conc 30.7 g/dL 32.0-36.5 [facility] NT ([facility]) Mean Corpuscular Hemoglobin 29.6 pg 27.0-33.0 [facility] ([facility]) Lymph % 5.9 % 24.0-44.0 [facility]) Platelet Count, Automated 144 10 150-450 [facility] NT ([facility]) Neutrophils % 86.7 % 36.0-66.0 [facility] ([facility]) [place] % 6.3 % 0.0-5.0 [facility]) Eos % 0.2 % 0.0-3.0 [facility]) Baso % 0.2 % 0.0-1.0 [facility] [facility] Immature Granulocyte % 0.7 % 0-3.0 [facility] ([facility]) Neutrophils # 7.6 10 1.5-8.5 [facility] ([facility]) Nucleated Red Blood Cell % 0.0 % 0-0 [facility] ([facility]) Eos # 0.0 10 0.0-0.5 [facility] ([facility]) [place] # 0.6 10 0.0-0.8 [facility] Lymph # 0.5 10 1.5-5.0 [facility] Baso # 0.0 10 0.0-0.2 [facility] [facility] ID Date Data Source [id number] 04/06/2020 11:17:00 AM EST [facility] ([facility]) Name Value Range Interpretation Code Description Data Marisela rce(s) Supporting Document(s) Lactate [Mass/volume] in Serum or Plasma 2.2 mmol/L 0.4-2.0 Above upper panic limits [facility] ([facility]) BACK AND VERIFIED BY ID Date Data Source URINE CULTURE 03/21/2020 12:00:00 AM EST eCW1 ([facility]) Name Value Range Interpretation Code Description Data Marisela rce(s) Supporting Document(s) URINE CULTURE eCW1 ([facility]) ID Date Data Source UA URINALYSIS 03/21/2020 12:00:00 AM EST eCW1 ([facility]) Name Value Range Interpretation Code Description Data Mariseal rce(s) Supporting Document(s) UA URINALYSIS eCW1 ([facility]) ID Date Data Source [id number] 01/26/2020 12:04:00 PM EDT [facility]) Name Value Range Interpretation Code Description Data Marisela rce(s) Supporting Document(s) Urine Color Laboratory test result Abnormal (applies to non-numeric results) [facility] ([facility]) Urine Appearance Laboratory test result Abnormal (applies to non-numeric results) [facility] ([facility]) Specific gravity of Urine 1.020 1.005-1.030 [facility] ([facility]) Urine PH 6.5 units 5.0-9.0 [facility] Urine Blood Laboratory test result Abnormal (applies to non-numeric results) [facility] ([facility]) Urine Protein Laboratory test result 0-0 Abnormal (applies to non-numeric results) [facility] ([facility]) Urine Leukocytes Laboratory test result Abnormal (applies to non-numeric results) [facility] ([facility]) Urine Ketone Laboratory test result [facility] NT ([facility]) Urine Nitrite Laboratory test result Abnormal (applies to non-numeric results) [facility]) Glucose [Presence] in Urine Laboratory test result [facility] ([facility]) Urine Urobilinogen Laboratory test result 0.2-1.0 Abnorm al (applies to non- numeric results) [facility] ([facility]) Bilirubin.total [Mass/volume] in Serum or Plasma Laboratory test resu lt [facility] ([facility]) ID Date Data Source [id number] 01/26/2020 12:04:00 PM EDT [facility]) Name Value Range Interpretation Code Description Data Marisela rce(s) Supporting Document(s) Thyrotropin [Units/volume] in Serum or Plasma by Detec tion limit <= 0.05 mIU/L 7.15 uIU/mL 0.36-3.74 [facility] ([facility] ) ID Date Data Source [id number] 01/26/2020 12:04:00 PM EDT [facility]) Name Value Range Interpretation Code Description Data Marisela rce(s) Supporting Document(s) Erythrocytes [#/volume] in Blood by Automated count 4.43 x10*6/UL 4.2 0-6.30 [facility] ([facility]) Leukocytes [#/volume] in Blood by Automated count 7.5 x10*3/UL 4.1-10 .9 [facility] ([facility]) MCV 91.0 fL 80.0-97.0 [facility] ([place] [facility]) Hemoglobin [Mass/volume] in Blood 13.8 g/dL 12.0-18.0 [facility] ([facility]) Hematocrit [Volume Fraction] of Blood by Automated count 40.4 % 3 7.0-51.0 [facility] ([facility]) MCH 31.2 pg 26.0-32.0 [facility] ([place] [facility]) MCHC 34.2 g/dL 31.0-38.0 [facility] ([facility]) Erythrocyte distribution width [Ratio] by Automated count 13.1 % 11.6-13.7 [facility] ([facility]) Platelets [#/volume] in Blood by Automated count 190 x10*3/UL 140-440 [facility] ([facility]) Lymph % 17.3 % 10.0-58.5 [facility] ([place] [facility]) MPV 8.5 FL 7.8-11.0 [facility] ([place] [facility]) Mid % 4.4 % 1.7-9.3 [facility] ([facility]) Mid # 0.3 x10*3/UL 0.1-0.6 [facility] ([facility]) Neut % 78.3 % 37.0-92.0 [facility] ([place] [facility]) Lymph # 1.3 x10*3/UL 0.6-4.1 [facility] ([facility]) Neut # 5.9 x10*3/UL 2.0-7.8 [facility] ([facility]) ID Date Data Source [id number] 06/16/2019 11:52:00 AM EST [facility] ([facility]) Name Value Range Interpretation Code Description Data Marisela rce(s) Supporting Document(s) Thyroxine (T4) free [Mass/volume] in Serum or Plasma 1.14 ng/dL 0.76- 1.46 [facility] ([facility]) ID Date Data Source [id number] 06/16/2019 11:52:00 AM EST [facility] ([facility]) Name Value Range Interpretation Code Description Data Marisela rce(s) Supporting Document(s) Thyrotropin [Units/volume] in Serum or Plasma by Detec tion limit <= 0.05 mIU/L 6.30 uIU/mL 0.36-3.74 [facility] ([facility] ) ID Date Data Source [id number] 06/16/2019 11:52:00 AM EST [facility] ([facility]) Name Value Range Interpretation Code Description Data Marisela rce(s) Supporting Document(s) Triglyceride [Mass/volume] in Serum or Plasma 80 mg/dL 30-150 [facility] ([facility]) Cholesterol [Mass/volume] in Serum or Plasma 173 mg/dL 131-200 [facility] ([facility]) Cholesterol in HDL [Mass/volume] in Serum or Plasma 68 mg/dL 35-60 [facility] ([facility]) Cholesterol in LDL [Mass/volume] in Serum or Plasma by calcu lation 89 CALC 50-159 [facility] ([facility]) ID Date Data Source [id number] 06/16/2019 11:52:00 AM EST [facility] ([facility]) Name Value Range Interpretation Code Description Data Marisela rce(s) Supporting Document(s) Urea nitrogen [Mass/volume] in Serum or Plasma 8 mg/dL 7-18 [facility] ([facility]) Glucose [Mass/volume] in Serum or Plasma 95 mg/dL 74-99 [facility] ([facility]) 100-125 mg/dL PRE-DIABETES/FASTING >126 mg/dL DIABETES/FASTING Potassium [Moles/volume] in Serum or Plasma 4.0 meq/L 3.5-5.1 [facility] ([facility]) Creatinine 0.9 mg/dL 0.6-1.3 [facility]) Sodium [Moles/volume] in Serum or Plasma 140 meq/L 136-145 [facility] ([facility]) Carbon dioxide, total [Moles/volume] in Serum or Plasma 31 meq/L 21 -32 [facility] ([facility]) Calcium [Mass/volume] in Serum or Plasma 8.8 mg/dL 8.5-10.1 [facility] ([facility]) Chloride [Moles/volume] in Serum or Plasma 103 meq/L 98-107 [facility] ([facility]) Glomerular filtration rate/1.73 sq M pre dicted among non-blacks [Volume Rate/Area] in Serum or Plasma by Creatinine-based formula (MDRD) Laboratory test result [facility] ([facility] ) Glomerular filtration rate/1.73 sq M pre dicted among blacks [Volume Rate/Area] in Serum or Plasma by Creatinine-based formula (MDRD) Laboratory test result [facility] ([facility]) <content>CHRONIC KIDNEY DISEASE STAGING PER NKF</content>
<content></content>
<content>STAGE I & II GFR >= 60 NORMAL TO MILDLY DECREASED</content>
<content>STAGE III GFR 30-59 MODERATELY DECREASED</content>
<content>STAGE IV GFR 15-29 SEVERELY DECREASED</content>
<content>STAGE V GFR <15 VERY LITTLE GFR LEFT</content>
<content>ESRD GFR <15 ON HVAC DESIGNER</content>
<content></content> ID Date Data Source [id number] 06/16/2019 11:52:00 AM EST [facility] ([facility]) Name Value Range Interpretation Code Description Data Marisela rce(s) Supporting Document(s) Magnesium 1.9 mg/dL 1.8-2.4 [facility] ([facility]) ID Date Data Source [id number] 06/16/2019 11:52:00 AM EST [facility] ([facility]) Name Value Range Interpretation Code Description Data Marisela rce(s) Supporting Document(s) Erythrocytes [#/volume] in Blood by Automated count 4.97 x10*6/UL 4.2 0-6.30 [facility] ([facility]) Leukocytes [#/volume] in Blood by Automated count 6.7 x10*3/UL 4.1-10 .9 [facility] ([facility]) Hemoglobin [Mass/volume] in Blood 15.0 g/dL 12.0-18.0 [facility] ([facility]) Hematocrit [Volume Fraction] of Blood by Automated count 45.7 % 3 7.0-51.0 [facility] ([facility]) MCH 30.2 pg 26.0-32.0 [facility] ([facility]) MCV 91.9 fL 80.0-97.0 [facility] ([facility]) Platelets [#/volume] in Blood by Automated count 165 x10*3/UL 140-440 [facility] ([facility]) Erythrocyte distribution width [Ratio] by Automated count 13.2 % 11.6-13.7 [facility] ([facility]) MCHC 32.9 g/dL 31.0-38.0 [facility] ([facility]) Lymph % 19.8 % 10.0-58.5 [facility] ([place] [facility] MPV 9.3 FL 7.8-11.0 [facility] [facility] Mid % 6.9 % 1.7-9.3 [facility] ([place] [facility] Lymph # 1.3 x10*3/UL 0.6-4.1 [facility] ([facility]) Mid # 0.5 x10*3/UL 0.1-0.6 [facility] ([facility]) Neut % 73.3 % 37.0-92.0 [facility]) Neut # 4.9 x10*3/UL 2.0-7.8 [facility] ([facility]) ID Date Data Source [id number] 06/10/2019 04:55:00 PM [facility] Name: JULIANO JENKINS : 1955 Age/Sex: 64M Ordering Provider: Luis Gold MD Med Rec #: [id number] Reg Status: DEP [facility] Room #: Date of Service: 06/10/19 Report Number: [id number] cc:Luis Gold MD Send Report To: [id number] XRP/XR Hip Rt 1-2 view w AP [...] Date/Time: 06/10/19 1254 Transcribed Date/Time: 06/10/19 1655 Supervisor Floor Assembly: DENISE Name Value Range Interpretation Code Description Data Marisela rce(s) Supporting Document(s) Procedure Social History Code Duration Value Status Description Data Source(s ) Smoking 03/21/2020 12:00:00 AM EST Former Smoker completed Former Smoker eCW1 ([facility]) Smoking 03/21/2020 12:00:00 AM EST Former Smoker completed Former Smoker eCW1 ([facility]) Smoking 03/21/2020 12:00:00 AM EST Former Smoker completed Former Smoker eCW1 ([facility]) Smoking 03/21/2020 12:00:00 AM EST Former Smoker completed Former Smoker eCW1 ([facility]) Smoking 03/21/2020 12:00:00 AM EST Former Smoker completed Former Smoker eCW1 ([facility]) Alcohol intake 02/15/2020 12:00:00 AM EDT Not Currently completed [facility] Cigarette pack-years 02/15/2020 12:00:00 AM EDT UNK completed [facility] Cigarettes smoked current (pack per day) - Reported 02/15/20 20 12:00:00 AM EDT UNK completed [facility] Smoking 02/15/2020 12:00:00 AM EDT Former smoker completed Former smoker [facility] 01/10/2020 12:00:00 AM EDT Cigarette Smoker completed Cig arette Smoker [facility] 01/10/2020 12:00:00 AM EDT Current smoker completed Curre nt smoker [facility] Vital Signs ID Date Data Source UNK Name Value Range Interpretation Code Description Data Source(s) Body mass index (BMI) [Ratio] 76.64 kg/m2 76.64 kg/m2 [facility] Body weight 190.057 kg 190.057 kg [facility] Body height 157.5 cm 157.5 cm [facility] Diastolic blood pressure 62 mm[Hg] 62 mm[Hg] [facility] Systolic blood pressure 110 mm[Hg] 110 mm[Hg] [facility] Body height 65.25 [in_i] 65.25 [in_i] [facility] ([facility]) 5'5.25" Heart rate 52 /min 52 /min [facility] ([facility]) Diastolic blood pressure 80 mm[Hg] 80 mm[Hg] [facility] ([facility]) LT Arm Systolic blood pressure 110 mm[Hg] 110 mm[Hg] M [facility] ([facility]) LT Arm Oxygen saturation in Arterial blood by Pulse oximetry 94 % 94 % [facility] ([facility]) Air Body height 65.25 [in_i] 65.25 [in_i] [facility] ([facility]) 5'5.25" Heart rate 97 /min 97 /min [facility] ([facility]) Diastolic blood pressure 70 mm[Hg] 70 mm[Hg] [facility] ([facility]) Systolic blood pressure 112 mm[Hg] 112 mm[Hg] M [facility]ENT ([facility]) Diastolic blood pressure 72 mm[Hg] 72 mm[Hg] eCW1 ([facility]) Systolic blood pressure 122 mm[Hg] 122 mm[Hg] e CW1 ([facility]) Body temperature 97.0 [degF] 97.0 [degF] eCW1 ( [facility]) Respiratory rate 20 /min 20 /min eCW1 ([facility]) Heart rate 80 /min 80 /min eCW1 ([facility]) Body mass index (BMI) [Ratio] 69.96 kg/m2 69.96 kg/m2 eCW1 ([facility]) Body height 63 [in_i] 63 [in_i] eCW1 ([facility]) Body weight 395 [lb_av] 395 [lb_av] eCW1 ([facility]) Body mass index (BMI) [Ratio] 62.1 kg/m2 62.1 k g/m2 [facility] ([facility]) Body weight 376.00 [lb_av] 376.00 [lb_av] MEDEN T ([facility]) Body height 65.25 [in_i] 65.25 [in_i] [facility] ([facility]) 5'5.25" Body mass index (BMI) [Ratio] 66.2 kg/m2 66.2 k g/m2 [facility] ([facility]) Oxygen saturation in Arterial blood by Pulse oximetry 99 % 99 % [facility] ([facility]) Air Body weight 401.00 [lb_av] 401.00 [lb_av] MEDEN T ([facility]) Body height 65.25 [in_i] 65.25 [in_i] [facility] ([facility]) 5'5.25" Heart rate 87 /min 87 /min [facility] ([facility]) Diastolic blood pressure 70 mm[Hg] 70 mm[Hg] [facility] ([facility]) Systolic blood pressure 110 mm[Hg] 110 mm[Hg] M EDENT ([facility]) Body weight 176.450 kg 176.450 kg [facility] ([facility] ) Body mass index (BMI) [Ratio] 64.7 kg/m2 64.7 k g/m2 [facility] ([facility] ) Body weight 389.00 [lb_av] 389.00 [lb_av] MEDEN T ([facility]) Body height 65 [in_i] 65 [in_i] [facility] ([facility]) 5'5" Diastolic blood pressure 68 mm[Hg] 68 mm[Hg] [facility] ([facility]) Systolic blood pressure 114 mm[Hg] 114 mm[Hg] [facility] ([facility]) Body weight 180.533 kg 180.533 kg [facility] ([facility]) Body mass index (BMI) [Ratio] 66.2 kg/m2 66.2 k g/m2 [facility] ([facility]) Body weight 398.00 [lb_av] 398.00 [lb_av] [facility] Body height 65 [in_i] 65 [in_i] [facility] ([facility]) 5'5" Diastolic blood pressure 80 mm[Hg] 80 mm[Hg] [facility] ([facility]) Systolic blood pressure 150 mm[Hg] 150 mm[Hg] [facility] ([facility]) Body mass index (BMI) [Ratio] 64.9 kg/m2 64.9 k g/m2 [facility]) Oxygen saturation in Arterial blood by Pulse oximetry 94 % 94 % [facility]) Air Body weight 393.00 [lb_av] 393.00 [lb_av] MED[facility] T ([facility]) Body height 65.25 [in_i] 65.25 [in_i] [facility] 5'5.25" Heart rate 78 /min 78 /min [facility] ([facility]) Diastolic blood pressure 64 mm[Hg] 64 mm[Hg] [facility] ([facility]) Systolic blood pressure 120 mm[Hg] 120 mm[Hg] [facility] ([facility]) ID Date Data Source [id number] 06/23/2019 08:55:00 AM [facility] Name Value Range Interpretation Code Description Data Source(s) Weight (Calculated Kilograms) 146.96 146.96 [facility] Height (Calculated Centimeters) 165.1 165. 1 [facility] Body Mass Index (BMI) 53.8 53.8 [facility] Patient Treatment Plan of Care Planned Activity Planned Date Details Description Data Source (s) Acetaminophen 06/04/2020 12:00:00 AM EST NETSMART ([facility]) Sertraline HCl 100 MG 06/04/2020 12:00:00 AM EST [facility]SMART ([facility]) Xarelto 20 MG 06/04/2020 12:00:00 AM EST [facility] [facility] Nystatin Powder 06/04/2020 12:00:00 AM EST [facility] ([facility]) Metoprolol Tartrate 50 MG 06/04/2020 12:00:00 AM EST [facility] ([facility]) Furosemide 40 MG 06/04/2020 12:00:00 AM EST [facility] ([facility]) Doxycycline Hyclate 100 MG 06/04/2020 12:00:00 AM EST [facility] ([facility]) Sertraline 50 MG Oral Tablet 05/23/2020 12:00:00 AM EST [facility] rivaroxaban 20 MG Oral Tablet 05/23/2020 12:00:00 AM EST [facility] rivaroxaban 20 MG Oral Tablet 03/14/2020 12:00:00 AM EST [facility] Zolpidem tartrate 10 MG Oral Tablet 01/30/2020 12:00:00 AM EDT [facility] Sertraline 50 MG Oral Tablet 01/23/2020 12:00:00 AM EDT [facility]
[2020-06-10 13:34] LABS: INR 1.39; PROTHROMBIN TIME 17.4 SECONDS (12.5-14.3)
[2020-06-10 13:39] VITALS: BP 107/56
[2020-06-10 13:47] LABS: BLOOD UREA NITROGEN 8 MG/DL (7-18); CALCIUM LEVEL 8.2 MG/DL (8.8-10.2); CARBON DIOXIDE LEVEL 29 MEQ/L (21-32); CHLORIDE LEVEL 103 MEQ/L (98-107); CREATININE FOR GFR 0.84 MG/DL (0.70-1.30); GLOMERULAR FILTRATION RATE > 60.0 (>49); GLUCOSE, FASTING 99 MG/DL (70-100); POTASSIUM SERUM 3.1 MEQ/L (3.5-5.1); SODIUM LEVEL 139 MEQ/L (136-145)
[2020-06-10] MEDS: LACTULOSE 20 GM/30 ML SYRUP UD PO SCH (13:53)
[2020-06-10] MEDS: PIPERACILLIN/TAZOBACTAM SOD 4.5 GM in D5W MINI-BAG PLUS 50 ML IV SCH ×2 (13:53→18:06)
[2020-06-10] MEDS: VANCOMYCIN HCL 1,000 MG, VIAL MATE ADAPTER 1 EACH in D5W 250 ML IV SCH ×2 (13:54→22:45)
[2020-06-10] MEDS: FUROSEMIDE 40 MG TAB PO SCH (13:54)
[2020-06-10] MEDS: NS 1,000 ML IV SCH (13:54)
[2020-06-10] MEDS ORDERED: VANCOMYCIN HCL 1,000 MG, VIAL MATE ADAPTER 1 EACH in D5W 250 ML IV ONE (15:00)
[2020-06-10 16:17] VITALS: BP 119/77
[2020-06-10 20:00] VITALS: BP 108/61
--- NOTE | 2020-06-10 21:01 | ECGEPIP ---
[facility] - ED Test Date: 2020-06-10 Pat Name: JULIANO JENKINS Department: Room: - Gender: Male Bill Sorter: harlan : 1955 Requested By: Elvis Andrews Order Number: [id number] Reading MD: Tg Coppola Measurements Intervals Bert[place] Rate: 76 P: 45 TN: 147 QRS: 1 QRSD: 114 T: 19 QT: 414 QTc: 468 Interpretive Statements SINUS RHYTHM LOW QRS VOLTAGE IN PRECORDIAL LEADS POSSIBLE RIGHT VENTRICULAR CONDUCTION DELAY NONSPECIFIC ST & T-WAVE ABNORMALITY baseline artifact may affect interpretation Electronically Signed on 06-10-2020 21:01:46 EST by Tg Coppola
[2020-06-10] MEDS: SERTRALINE 100 MG TAB PO SCH (22:44)
[2020-06-10] MEDS: RIVAROXABAN 20 MG TAB (XARELTO) PO SCH (22:44)
[2020-06-10] MEDS: DOCUSATE SODIUM 100MG CAPSULE PO SCH (22:44)
--- NOTE | 2020-06-10 22:44 | REPVR ---
PROCEDURE INFORMATION: Exam: US Abdomen, Limited; Right Upper Quadrant Exam date and time: 06/10/2020 10:27 PM Age: 65 years old Clinical indication: Abnormal findings; Abnormal lab test; Elevated liver enzymes; Prior surgery; Surgery date: 6+ months; Surgery type: Cholecystectomy, appendix, hernia; Additional info: Liver and gall bladder US. Elevated alk phos. Elevated bili TECHNIQUE: Imaging protocol: US abdomen. Real time ultrasound with image documentation. Limited exam focused on the right upper quadrant. COMPARISON: 1. Abdomen, limited US 2019-07-06 09:00 2. GALLBLADDER US 2016-09-18 12:18 FINDINGS: Limitations: Study limited by patient body size, and inability to hold breath. Liver: Hepatic steatosis. No masses. Gallbladder: Cholecystectomy. Common bile duct: Normal. No stones. No dilation. Pancreas: Visualized pancreas is unremarkable. Right kidney: 13.9 cm right kidney. Right kidney contains a staghorn calculus measuring approximately 3 cm. No significant hydronephrosis. IMPRESSION: 13.9 cm right kidney. Right kidney contains a staghorn calculus measuring approximately 3 cm. No significant hydronephrosis. Electronically signed by: Randall Newton On 06/10/2020 22:44:11 PM
[2020-06-10] MEDS: METOPROLOL SUCC (TopROL XL) 50MG **XL** TAB PO SCH (22:47)
[2020-06-11] VITALS: BP 126/70
[2020-06-11] MEDS: PIPERACILLIN/TAZOBACTAM SOD 4.5 GM in D5W MINI-BAG PLUS 50 ML IV SCH ×4 (00:59→19:20)
[2020-06-11 04:00] VITALS: BP 115/73
[2020-06-11] MEDS: NS 1,000 ML IV SCH ×3 (04:23→08:41)
[2020-06-11 05:43] LABS: HEMATOCRIT 31.1 % (42.0-52.0); HEMOGLOBIN 9.8 g/dl (13.5-17.5); MEAN CORPUSCULAR HEMOGLOBIN 29.8 pg (27.0-33.0); MEAN CORPUSCULAR HGB CONC 31.5 g/dl (32.0-36.5); MEAN CORPUSCULAR VOLUME 94.5 fl (80.0-96.0); PLATELET COUNT, AUTOMATED 130 10^3/uL (150-450); RED BLOOD COUNT 3.29 10^6/uL (4.30-6.10); WHITE BLOOD COUNT 8.7 10^3/uL (4.0-10.0)
[2020-06-11] MEDS: VANCOMYCIN HCL 1,000 MG, VIAL MATE ADAPTER 1 EACH in D5W 250 ML IV SCH (05:50)
[2020-06-11 06:15] LABS: ALBUMIN 2.5 GM/DL (3.2-5.2); ALT/SGPT 15 U/L (12-78); BILIRUBIN,TOTAL 1.4 MG/DL (0.2-1.0); BLOOD UREA NITROGEN 8 MG/DL (7-18); CALCIUM LEVEL 7.5 MG/DL (8.8-10.2); CARBON DIOXIDE LEVEL 26 MEQ/L (21-32); CHLORIDE LEVEL 104 MEQ/L (98-107); CREATININE FOR GFR 0.78 MG/DL (0.70-1.30); GLOMERULAR FILTRATION RATE > 60.0 (>49); GLUCOSE, FASTING 90 MG/DL (70-100); MAGNESIUM LEVEL 1.9 MG/DL (1.8-2.4); POTASSIUM SERUM 3.1 MEQ/L (3.5-5.1); SODIUM LEVEL 138 MEQ/L (136-145); TOTAL PROTEIN 6.9 GM/DL (6.4-8.2)
--- NOTE | 2020-06-11 07:41 | IPNPDOC ---
Text Note Date of Service The patient was seen on 06/11/20. NOTE Subjective: Patient was seen and examined this morning at bedside. He is a little more coherent than he was yesterday. He is able to answer some questions more appropriately he continues to mumble at times and difficult to understand. Says he feels better and he's hungry. There is no acute events reported overnight. Denies any chest pain or shortness of breath. Denies fevers or chills. Objective: Constitutional: Patient is less confused than yesterday but still occasionally mumbling nonsensical words ENT: Sclera are clear. Respiratory: His body habitus is very large and is difficult to auscultate his lungs I can't hear obvious crackles or wheezing. No respiratory distress. No use of accessory muscles. Cardiovascular: His heart sounds are distant due to his large body habitus and is difficult to accurately auscultate the sound irregular which is consistent with his history of atrial fibrillation Gastrointestinal: Abdomen is very large due to obesity with a large ventral hernia that appears nontender to palpation he has positive bowel sounds Musculoskeletal: His lower extremities appear to be chronically edematous with lots of dry skin that of chronic venous stasis Neurologic: He is not following my commands, unable to perform a neurological exam but he seems to move all 4 extremities freely Mental Status: Confused Skin: Lower extremities dry skin that of chronic venous stasis. Erythema near axilla and other skin folds likely due to poor hygiene and fungal infection. Assessment/plan: 65-year-old morbidly obese male with multiple medical problems who presents to the hospital with confusion found to have bilateral pneumonia and urinary tract infection admitted for further medical management. # Acute encephalopathy: Improved vs yesterday. Likely multifactorial due to underlying infection UTI/pneumonia. Ammonia elevated will continue lactulose. Fu Liver US. # Bilateral community-acquired pneumonia: CT chest shows similar appearance to May 24. We'll continue empiric antibiotics vancomycin and Zosyn. Fu BCx. Afebrile no leukocytosis. # UTI/dysuria: Crowell was placed on last admission by Dr. Live urologist. Change with new Crowell. Did not follow-up with urology. On empiric antibiotics. Follow up urine culture. CT abdomen/pelvis show Large staghorn calculus right kidney with multiple smaller intrarenal calculi on the right unchanged, I discussed the findings with Dr cordova who suggested OP followup. # Atrial fibrillation: Rate controlled. Continue metoprolol 50 daily at bedtime and Xarelto. # Lower extremity lymphedema chronic swelling and chronic venous stasis: Continue home Lasix. Fluid restriction PO 1800 mL daily. Low-salt diet. Monitor ins and outs. # Skin irritation at folds including axilla and groin: Yeast infection probably from poor hygiene. Continue nystatin powder when necessary. # Depression: Continue Zoloft # Stage II decubitus ulcers on buttocks: Wound care. Appears clean and not requiring debridement. # Morbid obesity: BMI greater than 60. This complicates care. Puts patient at high risk of severe illness and slower recovery. This needs to be addressed when he is better with his primary care physician. # Possible undiagnosed underlying NETTE: sleep study OP. # Anemia: Monitor hemoglobin. Appears chronic. # DVT prophylaxis: On Xarelto A [facility] Hospitalist VS,Candice, I+O VS, [place], I+O Laboratory Tests 06/10/20 08:49 06/10/20 13:12 06/11/20 05:11 Vital Signs Date Time Temp Pulse Resp B/P (MAP) Pulse Ox O2 Delivery O2 Flow Rate FiO2 06/11/20 04:00 98.1 68 20 115/73 (87) 95 Room Air I&O- Last 24 Hours up to 6 AM 06/11/20 05:59 Intake Total 470 ml Output Total 1140 ml Balance -670 ml JOSE ALBERTO WHYTE MD Jun 11, 2020 07:41
[2020-06-11] MEDS ORDERED: POTASSIUM CHLORIDE 10 MEQ SR TABLET PO ONE (07:45)
[2020-06-11 07:54] VITALS: BP 112/63
[2020-06-11] MEDS: KCL 10MEQ/100ML SWI (KRUN) 10 MEQ in IV 1 EA IV SCH ×4 (08:41→11:30)
[2020-06-11] MEDS: LACTULOSE 20 GM/30 ML SYRUP UD PO SCH (08:41)
[2020-06-11] MEDS: DOCUSATE SODIUM 100MG CAPSULE PO SCH ×2 (08:41→20:28)
[2020-06-11] MEDS: FUROSEMIDE 40 MG TAB PO SCH (08:41)
[2020-06-11] MEDS: ACETAMINOPHEN TAB 650MG DOSE (2X325MG) PO PRN (11:31)
[2020-06-11 12:00] VITALS: BP 120/64
[2020-06-11 15:50] VITALS: BP 110/53
[2020-06-11 20:00] VITALS: BP 104/65
[2020-06-11] MEDS: RIVAROXABAN 20 MG TAB (XARELTO) PO SCH (20:28)
[2020-06-11] MEDS: SERTRALINE 100 MG TAB PO SCH (20:28)
[2020-06-11] MEDS: METOPROLOL SUCC (TopROL XL) 50MG **XL** TAB PO SCH (20:30)
[2020-06-12] VITALS: BP 112/50
[2020-06-12] MEDS: PIPERACILLIN/TAZOBACTAM SOD 4.5 GM in D5W MINI-BAG PLUS 50 ML IV SCH ×3 (00:40→13:56)
[2020-06-12 04:00] VITALS: BP 114/52
[2020-06-12 07:44] VITALS: BP 124/60
[2020-06-12] MEDS: NS 1,000 ML IV SCH (08:19)
[2020-06-12 08:38] LABS: HEMATOCRIT 32.7 % (42.0-52.0); MEAN CORPUSCULAR HEMOGLOBIN 29.2 pg (27.0-33.0); MEAN CORPUSCULAR HGB CONC 30.6 g/dl (32.0-36.5); MEAN CORPUSCULAR VOLUME 95.6 fl (80.0-96.0); PLATELET COUNT, AUTOMATED 125 10^3/uL (150-450); RED BLOOD COUNT 3.42 10^6/uL (4.30-6.10); WHITE BLOOD COUNT 7.9 10^3/uL (4.0-10.0)
[2020-06-12] MEDS: LACTULOSE 20 GM/30 ML SYRUP UD PO SCH (08:56)
[2020-06-12 08:57] LABS: BLOOD UREA NITROGEN 10 MG/DL (7-18); CARBON DIOXIDE LEVEL 29 MEQ/L (21-32); CHLORIDE LEVEL 106 MEQ/L (98-107); CREATININE FOR GFR 0.88 MG/DL (0.70-1.30); GLOMERULAR FILTRATION RATE > 60.0 (>49); GLUCOSE, FASTING 107 MG/DL (70-100); SODIUM LEVEL 141 MEQ/L (136-145)
[2020-06-12] MEDS: DOCUSATE SODIUM 100MG CAPSULE PO SCH ×2 (08:57→20:54)
[2020-06-12] MEDS: FUROSEMIDE 40 MG TAB PO SCH (09:03)
[2020-06-12 11:58] VITALS: BP 121/79
[2020-06-12 16:00] VITALS: BP 104/67
--- NOTE | 2020-06-12 16:11 | IPNPDOC ---
Text Note Date of Service The patient was seen on 06/12/20. NOTE Subjective: Patient alert, awake and oriented in the morning. No any acute fidel nts overnight. Patient has gross hematuria Objective: GENERAL APPEARANCE: NAD, morbidly obese male HEENT: no scleral icterus, no JVD, EOMI CARDIOVASCULAR: S1S2 LUNGS: Diminished lung sounds bilaterally ABDOMEN: soft & not tender w palpitation, obese MUSCULOSKELETAL: no cyanosis, no swelling INTEGUMENT: no generalized palor NEUROLOGICAL: cranial nerve function from 2-12 intact intact, follows commands, speech not dysarthric Assessment/plan: 65-year-old morbidly obese male with multiple medical problems who presents to the hospital with confusion found to have bilateral pneumonia and urinary tract infection admitted for further medical management. Metabolic encephalopathy Improved, patient alert, awake and oriented in the morning Ammonia level improved and within normal limit Liver ultrasound showed hepatic steatosis Gross hematuria Most likely secondary to nephrolithiasis Patient has a history of Large staghorn calculus right kidney with multiple smaller intrarenal calculi on the right unchanged Dc xarelto UTI Continue ceftriaxone Patient will need follow-up with urologist in the outpatient settings. Most likely staghorn calculus is the source of chronic infection Bilateral pneumonia Patient does not have cough, sputum. Patient afebrile, no leukocytosis. Also patient recently completed course of antibiotics for pneumonia. I'm not sure that patient had pneumonia this time. CT showed the same picture as May 24 Atrial fibrillation Rate controlled DC xarelto due to gross hematuria Lower extremity lymphedema chronic swelling and chronic venous stasis Low-salt diet Compressive stocking Fungal infection Skin irritation at folds including axilla and groin Nystatin powder Depression Continue Zoloft Stage II decubitus ulcers on buttocks Wound care. Appears clean and not requiring debridement Morbid obesity BMI greater than 60. This complicates care Possible undiagnosed underlying NETTE sleep study OP Anemia hemoglobin stable Follow up with PCP in the outpatient settings for workup VS,Fishbone, I+O VS, Fishbone, I+O Laboratory Tests 06/12/20 08:08 Vital Signs Date Time Temp Pulse Resp B/P (MAP) Pulse Ox O2 Delivery O2 Flow Rate FiO2 06/12/20 11:58 97.8 68 20 121/79 (93) 94 Room Air I&O- Last 24 Hours up to 6 AM 06/12/20 06:00 Intake Total 1050 ml Output Total 1100 ml Balance -50 ml ASHLYN GREER DO Jun 12, 2020 16:11
[2020-06-12] MEDS: ACETAMINOPHEN TAB 650MG DOSE (2X325MG) PO PRN (18:01)
[2020-06-12 20:00] VITALS: BP 117/69
[2020-06-12] MEDS: cefTRIAXone SOD 2 GM in D5W MINI-BAG PLUS 50 ML IV SCH (20:52)
[2020-06-12] MEDS: METOPROLOL SUCC (TopROL XL) 50MG **XL** TAB PO SCH (20:53)
[2020-06-12] MEDS: SERTRALINE 100 MG TAB PO SCH (20:53)
[2020-06-13] VITALS (8 sets, daily range): BP systolic 109–139; BP diastolic 57–74
[2020-06-13 05:42] LABS: HEMATOCRIT 31.6 % (42.0-52.0); HEMOGLOBIN 9.9 g/dl (13.5-17.5); MEAN CORPUSCULAR HEMOGLOBIN 29.7 pg (27.0-33.0); MEAN CORPUSCULAR HGB CONC 31.3 g/dl (32.0-36.5); MEAN CORPUSCULAR VOLUME 94.9 fl (80.0-96.0); PLATELET COUNT, AUTOMATED 128 10^3/uL (150-450); RED BLOOD COUNT 3.33 10^6/uL (4.30-6.10); WHITE BLOOD COUNT 7.2 10^3/uL (4.0-10.0)
[2020-06-13 06:25] LABS: BLOOD UREA NITROGEN 9 MG/DL (7-18); CALCIUM LEVEL 7.5 MG/DL (8.8-10.2); CARBON DIOXIDE LEVEL 27 MEQ/L (21-32); CHLORIDE LEVEL 107 MEQ/L (98-107); CREATININE FOR GFR 0.74 MG/DL (0.70-1.30); GLOMERULAR FILTRATION RATE > 60.0 (>49); GLUCOSE, FASTING 88 MG/DL (70-100); POTASSIUM SERUM 2.8 MEQ/L (3.5-5.1); SODIUM LEVEL 141 MEQ/L (136-145)
[2020-06-13] MEDS ORDERED: POTASSIUM CHLORIDE 10 MEQ SR TABLET PO ONE ×2 (06:30→09:30)
[2020-06-13] MEDS: ACETAMINOPHEN TAB 650MG DOSE (2X325MG) PO PRN ×2 (06:42→20:22)
[2020-06-13] MEDS ORDERED: KCL 10MEQ/100ML SWI (KRUN) 10 MEQ in IV 1 EA IV ONE (08:00)
[2020-06-13] MEDS: LACTULOSE 20 GM/30 ML SYRUP UD PO SCH (10:13)
[2020-06-13] MEDS: DOCUSATE SODIUM 100MG CAPSULE PO SCH ×2 (10:14→20:22)
[2020-06-13] MEDS: FUROSEMIDE 40 MG TAB PO SCH (10:14)
--- NOTE | 2020-06-13 10:41 | IPNPDOC ---
Text Note Date of Service The patient was seen on 06/13/20. NOTE Subjective: No any acute events overnight. Patient continues to have gross he maturia, but less intense than yesterday Objective: GENERAL APPEARANCE: NAD, morbidly obese male HEENT: no scleral icterus, no JVD, EOMI CARDIOVASCULAR: S1S2 LUNGS: Diminished lung sounds bilaterally ABDOMEN: soft & not tender w palpitation, obese MUSCULOSKELETAL: no cyanosis, no swelling INTEGUMENT: no generalized palor NEUROLOGICAL: cranial nerve function from 2-12 intact intact, follows commands, speech not dysarthric Assessment/plan: 65-year-old morbidly obese male with multiple medical problems who presents to the hospital with confusion found to have bilateral pneumonia and urinary tract infection admitted for further medical management. Metabolic encephalopathy Improved, patient alert, awake and oriented in the morning Ammonia level improved and within normal limit Liver ultrasound showed hepatic steatosis Gross hematuria Most likely secondary to nephrolithiasis Patient has a history of Large staghorn calculus right kidney with multiple smaller intrarenal calculi on the right unchanged Dc xarelto Follow-up with urologist in the outpatient settings UTI Continue ceftriaxone Patient will need follow-up with urologist in the outpatient settings. Most likely staghorn calculus is the source of chronic infection Bilateral pneumonia Patient does not have cough, sputum. Patient afebrile, no leukocytosis. Also patient recently completed course of antibiotics for pneumonia. I'm not sure that patient had pneumonia this time. CT showed the same picture as May 24 Atrial fibrillation Rate controlled DC xarelto due to gross hematuria Lower extremity lymphedema chronic swelling and chronic venous stasis Low-salt diet Compressive stocking Fungal infection Skin irritation at folds including axilla and groin Nystatin powder Depression Continue Zoloft Stage II decubitus ulcers on buttocks Wound care. Appears clean and not requiring debridement Morbid obesity BMI greater than 60. This complicates care Possible undiagnosed underlying NETTE sleep study OP Anemia hemoglobin stable Follow up with PCP in the outpatient settings for workup VS,Fishbone, I+O VS, Fishbone, I+O Laboratory Tests 06/13/20 05:05 Vital Signs Date Time Temp Pulse Resp B/P (MAP) Pulse Ox O2 Delivery O2 Flow Rate FiO2 06/13/20 07:34 98.5 72 18 139/73 (95) 93 Room Air I&O- Last 24 Hours up to 6 AM 06/13/20 06:00 Intake Total 1140 ml Output Total 2750 ml Balance -1610 ml ASHLYN GREER DO Jun 13, 2020 10:41
[2020-06-13 12:51] LABS: BLOOD UREA NITROGEN 10 MG/DL (7-18); CALCIUM LEVEL 8.4 MG/DL (8.8-10.2); CARBON DIOXIDE LEVEL 30 MEQ/L (21-32); CHLORIDE LEVEL 106 MEQ/L (98-107); CREATININE FOR GFR 0.75 MG/DL (0.70-1.30); GLOMERULAR FILTRATION RATE > 60.0 (>49); GLUCOSE, FASTING 104 MG/DL (70-100); POTASSIUM SERUM 3.5 MEQ/L (3.5-5.1); SODIUM LEVEL 140 MEQ/L (136-145)
[2020-06-13 16:08] LABS: MYCOPLASMA PNEUMONIAE IgG 819 U/mL (0-99); MYCOPLASMA PNEUMONIAE IgM <770 U/mL (0-769)
[2020-06-13] MEDS: cefTRIAXone SOD 2 GM in D5W MINI-BAG PLUS 50 ML IV SCH (20:21)
[2020-06-13] MEDS: SERTRALINE 100 MG TAB PO SCH (20:22)
[2020-06-13] MEDS: METOPROLOL SUCC (TopROL XL) 50MG **XL** TAB PO SCH (20:22)
[2020-06-14 06:00] VITALS: BP 122/74
[2020-06-14] MEDS: LACTULOSE 20 GM/30 ML SYRUP UD PO SCH (09:15)
[2020-06-14] MEDS: FUROSEMIDE 40 MG TAB PO SCH (09:15)
[2020-06-14] MEDS: DOCUSATE SODIUM 100MG CAPSULE PO SCH (09:15)
[2020-06-14 09:31] LABS: HEMATOCRIT 33.9 % (42.0-52.0); HEMOGLOBIN 10.4 g/dl (13.5-17.5); MEAN CORPUSCULAR HEMOGLOBIN 29.8 pg (27.0-33.0); MEAN CORPUSCULAR HGB CONC 30.7 g/dl (32.0-36.5); MEAN CORPUSCULAR VOLUME 97.1 fl (80.0-96.0); PLATELET COUNT, AUTOMATED 143 10^3/uL (150-450); RED BLOOD COUNT 3.49 10^6/uL (4.30-6.10); WHITE BLOOD COUNT 8.2 10^3/uL (4.0-10.0)
[2020-06-14 09:55] LABS: BLOOD UREA NITROGEN 10 MG/DL (7-18); CALCIUM LEVEL 7.9 MG/DL (8.8-10.2); CARBON DIOXIDE LEVEL 30 MEQ/L (21-32); CHLORIDE LEVEL 106 MEQ/L (98-107); CREATININE FOR GFR 0.69 MG/DL (0.70-1.30); GLOMERULAR FILTRATION RATE > 60.0 (>49); GLUCOSE, FASTING 82 MG/DL (70-100); POTASSIUM SERUM 3.6 MEQ/L (3.5-5.1); SODIUM LEVEL 142 MEQ/L (136-145)
[2020-06-14 10:56] LABS: ALBUMIN 2.8 GM/DL (3.2-5.2); ALT/SGPT 17 U/L (12-78); BILIRUBIN,TOTAL 0.5 MG/DL (0.2-1.0); MAGNESIUM LEVEL 2.1 MG/DL (1.8-2.4); TOTAL PROTEIN 7.1 GM/DL (6.4-8.2)
[2020-06-14] MEDS ORDERED: BACT400T PO (12:28)
[2020-06-14 15:11] LABS: BODY FLUID CULTURE Not indicated. (.); CHLAMYDIA PNEUMONIAE IgM <1:10 (Neg:<1:10); LEGIONELLA ANTIGEN URINE Negative (Negative); ORGANISM ID Not indicated. (.); SPECIMEN SOURCE Urine (.); URINE STREP PNEUMONIAE ANTIGEN Negative (Negative)
--- NOTE | 2020-06-14 17:41 | DS.PDOC ---
Discharge Summary General Date of Admission Jun 10, 2020 at 12:08 Date of Discharge 06/14/20 Discharge Summary PROCEDURES PERFORMED DURING STAY: [None]. ADMITTING DIAGNOSES: Metabolic encephalopathy Gross hematuria UTI Bilateral pneumonia Atrial fibrillation Lower extremity lymphedema chronic swelling and chronic venous stasis Fungal infection Depression Stage II decubitus ulcers on buttocks Morbid obesity Possible undiagnosed underlying NETTE Anemia DISCHARGE DIAGNOSES: Metabolic encephalopathy Gross hematuria UTI Bilateral pneumonia Atrial fibrillation Lower extremity lymphedema chronic swelling and chronic venous stasis Fungal infection Depression Stage II decubitus ulcers on buttocks Morbid obesity Possible undiagnosed underlying NETTE Anemia COMPLICATIONS/CHIEF COMPLAINT: Ams,Bilat Pna, Gneeralized Weakness, Morbid Obesit. HISTORY OF PRESENT ILLNESS:65-year-old morbidly obese male with multiple medical problems who presents to the hospital with confusion found to have bilateral pneumonia and urinary tract infection admitted for further medical management. HOSPITAL COURSE: During hospital stay the following issue addressed Metabolic encephalopathy Improved, patient alert, awake and oriented in the morning Ammonia level improved and within normal limit Liver ultrasound showed hepatic steatosis Gross hematuria Most likely secondary to nephrolithiasis Patient has a history of Large staghorn calculus right kidney with multiple smaller intrarenal calculi on the right unchanged Dc xarelto Follow-up with urologist in the outpatient settings UTI Patient received treatment with ceftriaxone Patient will need follow-up with urologist in the outpatient settings. Most likely staghorn calculus is the source of chronic infection Bilateral pneumonia Patient does not have cough, sputum. Patient afebrile, no leukocytosis. Also patient recently completed course of antibiotics for pneumonia. I'm not sure that patient had pneumonia this time. CT showed the same picture as May 24 Atrial fibrillation Rate controlled DC xarelto due to gross hematuria Lower extremity lymphedema chronic swelling and chronic venous stasis Low-salt diet Compressive stocking Fungal infection Skin irritation at folds including axilla and groin Nystatin powder Depression Continue Zoloft Stage II decubitus ulcers on buttocks Wound care. Appears clean and not requiring debridement Morbid obesity BMI greater than 60. This complicates care Possible undiagnosed underlying NETTE sleep study OP Anemia hemoglobin stable Follow up with PCP in the outpatient settings for workup DISCHARGE MEDICATIONS: Please see below. ALLERGIES: Please see below. PHYSICAL EXAMINATION ON DISCHARGE: VITAL SIGNS: Please see below. GENERAL APPEARANCE: NAD, morbidly obese male HEENT: no scleral icterus, no JVD, EOMI CARDIOVASCULAR: S1S2 LUNGS: Diminished lung sounds bilaterally ABDOMEN: soft & not tender w palpitation, obese MUSCULOSKELETAL: no cyanosis, no swelling INTEGUMENT: no generalized palor NEUROLOGICAL: cranial nerve function from 2-12 intact intact, follows commands, speech not dysarthric LABORATORY DATA: Please see below. PROGNOSIS: Fair ACTIVITY: [As tolerated]. DIET: Cardiac DISPOSITION: 01 Home, Self-Care. DISCHARGE INSTRUCTIONS: Resume xarelto if gross hematuria resolved ITEMS TO FOLLOWUP ON ON OUTPATIENT: Follow-up with PCP and urologist DISCHARGE CONDITION: [Stable]. TIME SPENT ON DISCHARGE: Greater than 40 minutes. Vital Signs/I&Os Vital Signs Date Time Temp Pulse Resp B/P (MAP) Pulse Ox O2 Delivery O2 Flow Rate FiO2 06/14/20 06:00 98.0 70 21 122/74 (90) 97 Room Air I&O- Last 24 Hours up to 6 AM 06/14/20 06:00 Intake Total 1480 ml Output Total 1525 ml Balance -45 ml Laboratory Data Labs 24H Laboratory Tests 2 06/14/20 06:17: Nucleated Red Blood Cells % (auto) 0.0, Anion Gap 6L, Glomerular Filtration Rate > 60.0, Calcium Level 7.9L, Magnesium Level 2.1, Total Bilirubin 0.5, Aspartate Amino Transf (AST/SGOT) 19, Alanine Aminotransferase (ALT/SGPT) 17, Alkaline Phosphatase 135H, Total Protein 7.1, Albumin 2.8L, Albumin/Globulin Ratio 0.7 CBC/BMP Laboratory Tests 06/14/20 06:17 Microbiology Microbiology 06/10/20 Urine Culture - Final, Complete 06/10/20 Respiratory Virus Panel (PCR) (ANATOLIY) - Final, Complete 06/10/20 Blood Culture - Preliminary, Resulted No Growth after 72 hours. All specime... 06/10/20 Blood Culture - Preliminary, Resulted No Growth after 72 hours. All specime... Discharge Medications Scheduled Furosemide (Furosemide) 40 Mg Tablet, 40 MG PO DAILY, (Reported) Metoprolol Succinate (Metoprolol Succinate) 50 Mg Tab.er.24h, 50 MG PO QHS, (Reported) Sertraline HCl (Sertraline HCl) 100 Mg Tablet, 100 MG PO QHS, (Reported) Sulfamethoxazole/Trimethoprim (Bactrim 400-80 mg Tablet) 1 Each Tablet, 1 TAB PO BID Scheduled PRN Nystatin (Nystatin Powder) 15 Gm Powder, 1 DOSE TOP TID PRN for RASH, (Reported) APPLY TO STOMACH FOLDS AND UNDERARMS Allergies Coded Allergies: No Known Allergies (Verified , 07/12/07) ASHLYN GREER DO Jun 14, 2020 17:41
== END 2020-06-14 16:36 | disposition home health service (06) | DRG 689 ==
LOC: M ED 08:08 → EDBD 08:08 → M ED INP 12:08 → M PCU 13:25 → M MSPAV 06-13 16:18
PROVIDERS: ADMIT Family Medicine; ATTEND Internal Medicine
DX: N39.0 Urinary tract infection, site not specified (principal); G93.41 Metabolic encephalopathy; Z68.44 Body mass index [BMI] 60.0-69.9, adult; I48.91 Unspecified atrial fibrillation; I89.0 Lymphedema, not elsewhere classified; E66.01 Morbid (severe) obesity due to excess calories; I87.2 Venous insufficiency (chronic) (peripheral); G47.33 Obstructive sleep apnea (adult) (pediatric); F32.9 Major depressive disorder, single episode, unspecified; B37.2 Candidiasis of skin and nail; I73.9 Peripheral vascular disease, unspecified; D64.9 Anemia, unspecified; G47.00 Insomnia, unspecified; Z96.642 Presence of left artificial hip joint; Z90.49 Acquired absence of other specified parts of digestive tract; Z79.01 Long term (current) use of anticoagulants; Z79.899 Other long term (current) drug therapy; N20.0 Calculus of kidney; L89.312 Pressure ulcer of right buttock, stage 2; L89.322 Pressure ulcer of left buttock, stage 2

== ENCOUNTER 2020-06-17 12:40 | Emergency (ER) | payer MEDICARE ==
[~2020-06-17] VITALS: Ht 157.5 cm; Wt 179.0 kg
[~2020-06-17 12:40] MED LIST changes: +BACT400T PO
[2020-06-17] MEDS ORDERED: LIDOCAINE 2% 5ML JELLY UROJET TOP ONE (13:15)
[2020-06-17 14:08] LABS: HEMATOCRIT 35.6 % (42.0-52.0); HEMOGLOBIN 11.1 g/dl (13.5-17.5); MEAN CORPUSCULAR HEMOGLOBIN 29.8 pg (27.0-33.0); MEAN CORPUSCULAR HGB CONC 31.2 g/dl (32.0-36.5); MEAN CORPUSCULAR VOLUME 95.4 fl (80.0-96.0); PLATELET COUNT, AUTOMATED 168 10^3/uL (150-450); RED BLOOD COUNT 3.73 10^6/uL (4.30-6.10)
--- NOTE | 2020-06-17 14:24 | REP ---
INDICATION: fall pain. COMPARISON: None. TECHNIQUE: AP view of pelvis and two views of each hip. FINDINGS: Total left hip prosthesis is noted. No acute fracture or dislocation. Heterotopic calcifications are seen in the soft tissues lateral to the left hip joint. There are severe arthritic changes of the right hip joint with severe joint space narrowing, subchondral sclerosis and spurring. There are mild degenerative changes of the lower lumbar spine. IMPRESSION: Total left hip prosthesis. Severe arthritic change right hip. No acute fracture or dislocation. <Electronically signed by Nathan Yang > 06/17/20 [id number]
[2020-06-17 14:29] LABS: BLOOD UREA NITROGEN 7 MG/DL (7-18); CARBON DIOXIDE LEVEL 27 MEQ/L (21-32); CHLORIDE LEVEL 103 MEQ/L (98-107); CREATININE FOR GFR 0.75 MG/DL (0.70-1.30); GLOMERULAR FILTRATION RATE > 60.0 (>49); GLUCOSE, FASTING 97 MG/DL (70-100); POTASSIUM SERUM 3.6 MEQ/L (3.5-5.1); SODIUM LEVEL 138 MEQ/L (136-145)
[2020-06-17 15:15] VITALS: BP 103/61
== END 2020-06-17 16:41 | disposition home or self-care (01) ==
LOC: EDBD 12:40 → M ED 12:40
DX: M62.81 Muscle weakness (generalized) (principal); R53.81 Other malaise; R53.83 Other fatigue; I51.9 Heart disease, unspecified; E11.9 Type 2 diabetes mellitus without complications; I10 Essential (primary) hypertension; N18.9 Chronic kidney disease, unspecified; Z96.642 Presence of left artificial hip joint; M16.11 Unilateral primary osteoarthritis, right hip; Z79.899 Other long term (current) drug therapy

== ENCOUNTER 2020-06-25 02:50 | Inpatient (IN) | payer MEDICARE ==
[~2020-06-25] VITALS: Ht 177.8 cm; Wt 159.2 kg
--- OUTSIDE RECORDS SUMMARY | 2020-06-25 02:55 | CCD ---
Author Author [facility] Organization [facility] Address Unknown Phone Unavailable Care Team Providers Care Pharmacist Aide Name Role Phone Harley Gurrola MD Unavailable Unavailable Harley Gurrola MD Unavailable Unavailable Harley Gurrola MD Unavailable Unavailable Harley Gurrola MD Unavailable Unavailable Harley Gurrola MD Unavailable Unavailable Harley Gurrola MD Unavailable Unavailable Harley Gurrola MD Unavailable Unavailable Harley Gurrola MD Unavailable Unavailable IzabelaHarley MD Unavailable Unavailable GeorgetownHarley MD Unavailable Unavailable GeorgetownHarley MD Unavailable Unavailable IzabelaHarley MD Unavailable Unavailable GeorgetownHarley MD Unavailable Unavailable GeorgetownHarley MD Unavailable Unavailable IzabelaHarley MD Unavailable Unavailable IzabelaHarley MD Unavailable Unavailable GeorgetownHarley MD Unavailable Unavailable GeorgetownHarley MD Unavailable Unavailable IzabelaHarley MD Unavailable Unavailable IzabelaHarley MD Unavailable Unavailable IzabelaHarley MD Unavailable Unavailable IzabelaHarley MD Unavailable Unavailable IzabelaHarley MD Unavailable Unavailable GeorgetownHarley MD Unavailable Unavailable IzabelaHarley MD Unavailable Unavailable GeorgetownHarley MD Unavailable Unavailable IzabelaHarley MD Unavailable Unavailable GeorgetownHarley MD Unavailable Unavailable IzabelaHarley MD Unavailable Unavailable IzabelaHarley MD Unavailable Unavailable IzabelaHarley MD Unavailable Unavailable GeorgetownHarley MD Unavailable Unavailable IzabelaHarley MD Unavailable Unavailable GeorgetownHarley MD Unavailable Unavailable GeorgetownHarley MD Unavailable Unavailable IzabelaHarley MD Unavailable Unavailable IzabelaHarley MD Unavailable Unavailable IzabelaHarley MD Unavailable Unavailable GeorgetownHarley MD Unavailable Unavailable IzabelaHarley MD Unavailable Unavailable IzabelaHarley MD Unavailable Unavailable IzabelaHarley MD Unavailable Unavailable GeorgetownHarley MD Unavailable Unavailable IzabelaHarley tate MD Unavailable Unavailable GeorgetownHarley MD Unavailable Unavailable GeorgetownHarley MD Unavailable Unavailable IzabelaHarley MD Unavailable Unavailable IzabelaHarley MD Unavailable Unavailable GeorgetownHarley MD Unavailable Unavailable GeorgetownHarley MD Unavailable Unavailable IzabelaHarley tate MD Unavailable Unavailable IzabelaHarley MD Unavailable Unavailable IzabelaHarley MD Unavailable Unavailable IzabelaHarley MD Unavailable Unavailable IzabelaHarley MD Unavailable Unavailable GeorgetownHarley MD Unavailable Unavailable GeorgetownHarley MD Unavailable Unavailable IzabelaHarley MD Unavailable Unavailable IzabelaHarley MD Unavailable Unavailable GeorgetownHarley MD Unavailable Unavailable IzabelaHarley MD Unavailable Unavailable GeorgetownHarley MD Unavailable Unavailable IzabelaHarley MD Unavailable Unavailable GeorgetownHarley MD Unavailable Unavailable IzabelaHarley MD Unavailable Unavailable IzabelaHarley MD Unavailable Unavailable IzabelaHarley MD Unavailable Unavailable IzabelaHarley MD Unavailable Unavailable GeorgetownHarley MD Unavailable Unavailable IzabelaHarley MD Unavailable Unavailable GeorgetownHarley MD Unavailable Unavailable IzabelaHarley MD Unavailable Unavailable IzabelaHarley MD Unavailable Unavailable GeorgetownHarley MD Unavailable Unavailable IzabelaHarley MD Unavailable Unavailable IzabelaHarley MD Unavailable Unavailable IzabelaHarley MD Unavailable Unavailable Georgetown F Lanre FIERRO Unavailable Unavailable GeorgetownHarley MD Unavailable Unavailable Izabela F Lanre FIERRO Unavailable Unavailable Georgetown F Lanre FIERRO Unavailable Unavailable Georgetown F Lanre FIERRO Unavailable Unavailable IzabelaHarley MD Unavailable Unavailable IzabelaHarley MD Unavailable Unavailable GeorgetownHarley MD Unavailable Unavailable IzabelaHarley MD Unavailable Unavailable Aman Gold MD Unavailable +[phone] 50 Aman Gold MD Unavailable +1() 50 Aman Gold MD Unavailable [phone] Aman Gold MD Unavailable +1() 50 Aman Gold MD Unavailable [phone] [...] Nataliia Segura MD Unavailable Unavailable Brock, Jeannette CHUMMER Unavailable Unavailable Brock, Jeannette CHUMMER Unavailable Unavailable Brock, Jeannette CHUMMER Unavailable Unavailable Brock, Jeannette CHUMMER Unavailable Unavailable Brock, Jeannette CHUMMER Unavailable Unavailable Brock, Jeannette CHUMMER Unavailable Unavailable Brock, Jeannette CHUMMER Unavailable Unavailable Brock, Jeannette CHUMMER Unavailable Unavailable Brock, Jeannette CHUMMER Unavailable Unavailable Brock, Jeannette CHUMMER Unavailable Unavailable Brock, Jeannette CHUMMER Unavailable Unavailable Brock, Jeannette CHUMMER Unavailable Unavailable Brock, Jeannette CHUMMER Unavailable Unavailable Brock, Jeannette CHUMMER Unavailable Unavailable Brock, Jeannette CHUMMER Unavailable Unavailable Brock, Jeannette CHUMMER Unavailable Unavailable Brock, Jeannette CHUMMER Unavailable Unavailable Brock, Jeannette CHUMMER Unavailable Unavailable Brock, Jeannette CHUMMER Unavailable Unavailable Brock, Jeannette CHUMMER Unavailable Unavailable Brock, Jeannette CHUMMER Unavailable Unavailable Brock, Jeannette CHUMMER Unavailable Unavailable Brock, Jeannette CHUMMER Unavailable Unavailable Brock, Jeannette CHUMMER Unavailable Unavailable Brock, Jeannette CHUMMER Unavailable Unavailable Brock, Jeannette CHUMMER Unavailable Unavailable Brock, Jeannette CHUMMER Unavailable Unavailable PICKERAL JR, J MARIAH PA-C [...] J MARIAH PA-C Unavailable Unavailable Ancelmo, Tiffany CHUMMER Unavailable Unavailable Ancelmo, Tiffany CHUMMER Unavailable Unavailable Ancelmo, Tiffany CHUMMER Unavailable Unavailable Ancelmo, Tiffany CHUMMER Unavailable Unavailable Ancelmo, Tiffany CHUMMER Unavailable Unavailable Ancelmo, Tiffany CHUMMER Unavailable Unavailable Ancelmo, Tiffany CHUMMER Unavailable Unavailable Ancelmo, Tiffany CHUMMER Unavailable Unavailable Ancelmo, Tiffany CHUMMER Unavailable Unavailable Ancelmo, Tiffany CHUMMER Unavailable Unavailable Ancelmo, Tiffany CHUMMER Unavailable Unavailable Ancelmo, Tiffany CHUMMER Unavailable Unavailable Ancelmo, Tiffany CHUMMER Unavailable Unavailable Ancelmo, Tiffany CHUMMER Unavailable Unavailable Ancelmo, Tiffany CHUMMER Unavailable Unavailable Ancelmo, Tiffany CHUMMER Unavailable Unavailable Ancelmo, Tiffany CHUMMER Unavailable Unavailable Ancelmo, Tiffany CHUMMER Unavailable Unavailable Ancelmo, Tiffany CHUMMER Unavailable Unavailable Ancelmo, Tiffany CHUMMER Unavailable Unavailable Ancelmo, Tiffany CHUMMER Unavailable Unavailable Ancelmo, Tiffany CHUMMER Unavailable Unavailable Ancelmo, Tiffany CHUMMER Unavailable Unavailable Ancelmo, Tiffany CHUMMER Unavailable Unavailable Ancelmo, Tiffany CHUMMER Unavailable Unavailable Ancelmo, Tiffany CHUMMER Unavailable Unavailable Ancelmo, Tiffany CHUMMER Unavailable Unavailable Ancelmo, Tiffany CHUMMER Unavailable Unavailable Ancelmo, Tiffany CHUMMER Unavailable Unavailable Ancelmo, Tiffany CHUMMER Unavailable Unavailable Ancelmo, Tiffany CHUMMER Unavailable Unavailable Ancelmo, Tiffany CHUMMER Unavailable Unavailable Ancelmo, Tiffany CHUMMER Unavailable Unavailable Ancelmo, Tiffany CHUMMER Unavailable Unavailable Ancelmo, Tiffany CHUMMER Unavailable Unavailable Ancelmo, Tiffany CHUMMER Unavailable Unavailable Ancelmo, Tiffany CHUMMER Unavailable Unavailable Ancelmo, Tiffany CHUMMER Unavailable Unavailable Ancelmo, Tiffany CHUMMER Unavailable Unavailable Ancelmo, Tiffany CHUMMER Unavailable Unavailable Ancelmo, Tiffany CHUMMER Unavailable Unavailable Ancelmo, Tiffany CHUMMER Unavailable Unavailable Ancelmo, Tiffany CHUMMER Unavailable Unavailable Ancelmo, Tiffany CHUMMER Unavailable Unavailable Ancelmo, Tiffany CHUMMER Unavailable Unavailable Ancelmo, Tiffany CHUMMER Unavailable Unavailable Ancelmo, Tiffany CHUMMER Unavailable Unavailable Ancelmo, Tiffany CHUMMER Unavailable Unavailable Ancelmo, Tiffany CHUMMER Unavailable Unavailable Ancelmo, Tiffany CHUMMER Unavailable Unavailable Ancelmo, Tiffany CHUMMER Unavailable Unavailable Ancelmo, Tiffany CHUMMER Unavailable Unavailable Ancelmo, Tiffany CHUMMER Unavailable Unavailable Harney, V EAGLE PA-C Unavailable Unavailable Leroy, V EAGLE PA-C Unavailable Unavailable Leroy, V EAGLE PA-C Unavailable Unavailable Harney, V EAGLE PA-C Unavailable Unavailable Leroy, V [...] is protected by Article 27-F of the [place] Public [employer] law. If you continue you may have access to information: Regarding HIV / AIDS; Provided by facilities licensed or operated by the [place] Office of Mental Health; or Provided by the [place] [facility] Office for People With Developmental Disabilities. If such information is present, then the following [place] [facility] mandated warning applies: This information has been [...] law may result in a fine or usp sentence or both. A general authorization for the release of medical or other information is NOT sufficient authorization for further disc losure. Allergies and Adverse Reactions Type Description Substance Reaction Status Data Source(s ) No Known Drug Allergies No Known Drug Allergies No Known Drug Aller gies active NETSMART ([facility] ) Family History Family Member Name Family Member Gender Family Member Status Date o f Status Description Data Source(s) Unknown Male Problem MEDENT ([facility], ) Encounters Encounter Providers Location Date Indications Data Source(s ) 06/04/2020 12:00:00 AM EST - 021 02:38:14 PM EST NETSMART ([facility]) Outpatient Attender: EAGLE TURNERCReferrer: Arturo CARROLL.AMBER.VIC 05/23/2020 12:00:00 AM EST [facility] Outpatient Attender: Jeannette Stein 01:40:00 PM EST MEDENT ([facility] ) [place] [address] [address] 04/24/2020 12:00:00 AM EST eCW1 ([facility]) Outpatient Attender: MARIAH Stein 1 05/30/2019 01:00:00 PM EST MEDENT ([facility] ) [place] [address] [address] 03/28/2020 12:00:00 AM EST eCW1 ([facility]) [place] [address] [address] 03/23/2020 12:00:00 AM EST eCW1 ([facility]) [place] [address] [address] 03/23/2020 12:00:00 AM EST eCW1 ([facility]) [place]patient [address] [address] 03/21/2020 12:00:00 AM EST eCW1 ([facility]) Outpatient Attender: MARIAH Stein 1 02:00:00 PM EDT MEDENT ([facility] ) Outpatient Attender: Lucila CARROLL.VIC-SJCassandra.VIC 11/2019 12:00:00 AM EDT - 02/15/2020 01:50:37 PM EDT [facility] Outpatient Attender: MARIAH Stein 0 01/26/2020 11:20:00 AM EDT MEDENT ([facility] ) Outpatient Attender: Tiffany DOVERP Izabela Stein 0 10/20/2019 02:00:00 PM EDT MEDENT ([facility] ) Outpatient 07/12/2019 03:15:00 PM EST [facility] Outpatient Attender: Gia Stein 10:00:00 AM EST MEDENT ([facility] ) Outpatient Attender: Luis Gold MD CPSCAORT-CPSCAORT 11:20:00 AM EST - 06/10/2019 11:21:00 AM EST [facility] Patient discharged. Immunizations Vaccine Date Status Description Data Source(s) Influenza, injectable, MDCK, preservative free, mariposa valent 03/30/2020 01:20:00 PM EST completed [facility] ([facility]) Medications Medication Brand Name Start Date Product Form Dose Route Admi nistrative Instructions Pharmacy Instructions Status Indications Reaction Description Data Source(s) Sertraline HCl 100 MG Sertraline HCl 06/04/2020 12:00:00 AM EST 1.0 {tablet} completed NETSMART ( [facility]) Acetaminophen Acetaminophen 06/04/2020 12:00:00 AM EST 500.0 {mg } completed NETSMART ([facility]) Furosemide 40 MG Furosemide 06/04/2020 12:00:00 AM EST 0 {tablet } completed NETSMART ([facility]) Metoprolol Tartrate 50 MG Metoprolol Tartrate 06/04/2020 12:00:00 A M EST 0 {tablet} completed [facility] ([facility]) Nystatin Powder Nystatin Powder 06/04/2020 12:00:00 AM EST 15.0 {gm} completed [facility]SMART ([facility]) Xarelto 20 MG Xarelto 06/04/2020 12:00:00 AM EST 1.0 {tablet} completed [facility]SMART ([facility]) Doxycycline Hyclate 100 MG Doxycycline Hyclate 06/04/2020 12:00:00 AM EST 0 {tablet} completed [facility] ([facility]) Sertraline 50 MG Oral Tablet sertraline (ZOLOFT) 50 MG tablet sertraline (ZOLOFT) 50 MG tablet 05/23/2020 12:00:00 AM EST 50 mg Oral active Take 1 tablet (50 mg total) by mouth daily [facility] rivaroxaban 20 MG Oral Tablet rivaroxaban (XARELTO) 20 MG TABS rivaroxaban (XARELTO) 20 MG TABS 05/23/2020 12:00:00 AM EST 20 mg Oral active Take 1 tablet (20 mg total) by mouth daily [facility] Administration Of Flu Vaccine 03/30/2020 12:00:00 AM EST completed [facility] ([facility]) Medication administered onsite Cephalexin 500 MG Oral [...] tablet (20 mg total) by mouth daily [facility] 24 HR metoprolol succinate 50 MG Extended Release Oral Tablet [Toprol] Toprol XL 02/27/2020 12:00:00 AM EDT ORAL active MEDENT ([facility]) Sertraline 100 MG Oral Tablet Sertraline HCL 02/27/2020 12:00:00 AM E DT ORAL active [facility] ([facility]) Zolpidem tartrate 10 MG Oral Tablet zolpidem (AMBIEN) 10 MG tablet zolpidem (AMBIEN) 10 MG tablet 01/30/2020 12:00:00 AM EDT 10 mg a ctive 10 mg [facility] NITROFURANTOIN, MACROCRYSTALS 100 MG Oral Capsule Nitrofuran toin Macrocrystal 01/26/2020 12:00:00 AM EDT ORAL completed MEDENT ([facility]) Sertraline 50 MG Oral Tablet sertraline (ZOLOFT) 50 MG tablet sertraline (ZOLOFT) 50 MG tablet 01/23/2020 12:00:00 AM EDT 50 mg Oral aborted Take 50 mg by mouth daily [facility] 50 mg 06/17/2019 12:00:00 AM EST [...] 12:00:00 AM EST ORAL active MEDENT ([facility]) 5 mg 06/08/2019 12:00:00 AM EST [...] ONE TABLET SOLD: 05/11/2019 [facility] Insurance Providers Payer name Policy type / Coverage type Policy ID Covered libertarian ID Covered libertarian's relationship to mitchell Policy Mitchell Plan Information WELLCARE [id number] SP [id number] MEDICARE C [id number] S [id number] MEDICARE [id number] SP [id number] WELLCARE MEDICARE [id number] WELLCARE MEDICARE [id number] Cara 18 [id number] MEDICARE [id number] SP [id number] A MEDICARE [id number] SP [id number] MEDICARE [id number] SP [id number] A WELLCARE O [id number] S [id number] WELLCARE [id number] SP [id number] WELLCARE [id number] Other [id number] Wellcare Health Plans [employer] medical Commercial [id number] Self [id number] Wellcare/Todays Optmcr Commercial [id number] Self [id number] [employer] Health Plans [place] medical Commercial [id number] Self [id number] MEDICARE A [id number] Self [id number] A WELLCARE [id number] SP [id number] Wellcare/Todays Optmcr Commercial [id number] Self [id number] Wellcare Today's Options Commercial [id number] Self [id number] TODAYS OPTIONS [id number] SP [id number] [place] [employer] [id number] Self [id number] [place] [employer] [id number] Self [id number] [place] [employer] [id number] Self [id number] TODAYS OPTIONS [id number] SP [id number] [place] [employer] [id number] Self [id number] Todays Option Commercial [id number] Self [id number] Medicare Part A [place] Medicare Primary [id number] Self [id number] MEDICARE PART A-O/P [id number] 18 [id number] [place] [id number] 18 [id number] MEDICARE PART A [facility] [id number] 18 [id number] TODAYS OPTION -RECURRING [id number] CIGNA HEALTHCARE -RECURRING [id number] 18 [id number] CIGNA HEALTHCARE -RECURRING [id number] 18 [id number] TODAYS OPTION -RECURRING [id number] 18 [id number] MEDICARE -O/P [id number] 18 [id number] MEDICARE [id number] SP [id number] A MEDICARE C [id number] S [id number] A MEDICARE PART A-CLINIC [id number] 18 [id number] MEDICARE OUTPATIENT M [id number] S [id number] WELLCARE HLTH PLANS O [id number] S [id number] UNAVAILABLE UNAVAILA BLE Problems, Conditions, and Diagnoses Code Display Name Description Problem Type Effective Dates Data Source(s) Z46.6 Encounter for fitting and adjustment of urinary device Encounter for fitting and adjustment of urinary device Problem 06/04/2020 12:00:00 AM EST NETSMART ([facility]) 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 Problem 06/04/2020 12:00:00 AM EST [facility]SMART ([facility]) Z91.81 History of falling History of falling Problem 12:00:00 AM EST [facility]SMART ([facility]) Z87.891 Personal history of nicotine dependence Personal history of nicotine dependence Problem 06/04/2020 12:00:00 AM EST [facility]SMART ([facility]) Z68.44 Body mass index [BMI] 60.0-69.9, adult B beata mass index [BMI] 60.0-69.9, adult Problem 06/04/2020 12:00:00 AM EST NETSMART ([facility]) Z96.642 Presence of left artificial hip joint Pr esence of left artificial hip joint Problem 06/04/2020 12:00:00 AM EST [facility]SMART ([facility]) J18.9 Pneumonia, unspecified organism Pneumonia, unspecified organism Problem 06/04/2020 12:00:00 AM EST [facility]SMART ([facility] ) N20.0 Calculus of kidney Calculus of kidney Problem 12:00:00 AM EST [facility]SMART ([facility]) R33.8 Other retention of urine Other retention of urine Prob chele 06/04/2020 12:00:00 AM EST [facility]SMART ([facility] ) R29.6 Repeated falls Repeated falls Problem 06/04/2020 12:00: 00 AM EST NETSMART ([facility]) I48.91 Unspecified atrial fibrillation Unspecified atrial fib rillation Problem 06/04/2020 12:00:00 AM EST NETSMART ([facility] ) I50.32 Chronic diastolic (congestive) heart cain lure Chronic diastolic (congestive) heart failure Problem 06/04/2020 12:00:00 AM EST NETSMA RT ([facility]) K59.04 Chronic idiopathic constipation Chronic idiopathic con stipation Problem 06/04/2020 12:00:00 AM EST [facility]SMART ([facility] ) K57.30 Diverticulosis of large inte miah without perforation or abscess without bleeding Diverticulosis of large intestine withou t perforation or abscess without bleeding Problem 06/04/2020 12:00:00 AM EST [facility]SMART ([facility]) K43.9 Ventral hernia without obstruction or ga ngrene Ventral hernia without obstruction or gangrene Problem 06/04/2020 12:00:00 AM EST [facility]SMART ([facility]) M47.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, lumbar region Spondylosis without myelopathy or radiculopathy, lumbar region Problem 06/04/2020 12:00:00 AM EST [facility]SMART ([facility] ) M16.11 Unilateral primary osteoarthritis, right hip Unilateral primary osteoarthritis, right hip Problem 06/04/2020 12:00:00 AM EST NETSMAR T ([facility]) G47.00 Insomnia, unspecified Insomnia, unspecified Problem 06/04/2020 12:00:00 AM EST NETSMART ([facility] ) G47.33 Obstructive sleep apnea (adult) (pediatr ic) Obstructive sleep apnea (adult) (pediatric) Problem 06/04/2020 12:00:00 AM EST [facility]SMART ([facility]) E66.01 Morbid (severe) obesity due to excess ca lories Morbid (severe) obesity due to excess calories Problem 06/04/2020 12:00:00 AM EST NETSMART ( [facility]) 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 Problem 03/21/2020 12:00:00 AM EST eCW1 ([facility]) E66.01 Morbid obesity Morbid obesity [id number] 02/15/2020 12:00: 00 AM EDT [facility] I48.19 Persistent atrial fibrillation Persistent atrial fibri llation [id number] 02/15/2020 12:00:00 AM EDT [facility] I48.19 Other persistent atrial fibrillation Oth er persistent atrial fibrillation Diagnosis 02/15/2020 01:01:44 PM EDT [facility] E66.01 Morbid (severe) obesity due to excess ca lories MORBID (SEVERE) OBESITY DUE TO EXCESS CALORIES Diagnosis 06/10/2019 11:20:00 AM [facility] Z96.642 Presence of left artificial hip joint MA ESENCE OF LEFT ARTIFICIAL HIP JOINT Diagnosis 06/10/2019 11:20:00 AM [facility] M16.11 Unilateral primary osteoarthritis, right hip UNILATERAL PRIMARY OSTEOARTHRITIS, RIGHT HIP Diagnosis 06/10/2019 11:20:00 AM [facility] M25.551 Pain in right hip PAIN IN RIGHT HIP Diagnosis 06/10 11:20:00 AM [facility] Surgeries/Procedures Procedure Description Date Indications Data Source(s) POCT AMB EKG POCT AMB EKG Routine 05/23/2020 5:28 PM EST Persistent atrial fibrillation 05/23/2020 10:28:00 PM EST Pe rsistent atrial fibrillation [facility] Persistent atrial fibrillation ECG ROUTINE ECG W/LEAST 12 LDS W/I&R 01/26/2020 12:00: 00 AM [facility] outpatient clinic visit for assessment and ma nagement of a patient Hospital Outpatient Clinic Visit 06/10/2019 12:00:00 AM [facility] [address] X-RAY EXAM HIP UNI 2-3 VIEWS 06/10/2019 12:00:00 AM ES T [facility] Results ID Date Data Source [id number] 06/10/2020 09:41:00 AM EST [facility] Name Value Range Interpretation Code Description Data Marisela rce(s) Supporting Document(s) SARS-CoV-2 (COVID 19) NEGATIVE - SARS-CoV-2 (COVID19) [facility] This lab was ordered by [facility] a nd reported by [facility]. ID Date Data Source [id number] 05/24/2020 04:52:00 AM EST [facility] Name Value Range Interpretation Code Description Data Marisela rce(s) Supporting Document(s) SARS coronavirus 2 RNA [Presence] in Res piratory specimen by OCTAVIA with probe detection NEGATIVE [facility] This lab was ordered by [facility] a nd reported by [facility]. ID Date Data Source [id number] 04/06/2020 02:21:00 PM EST MEDENT ([facility]) Name Value Range Interpretation Code Description Data Marisela rce(s) Supporting Document(s) Laboratory test finding (navigational concept) Laboratory test result MEDENT ([facility]) A false negative result may occur [...] pathogens. DISCLAIMER: Testing was performed using the [employer] SARS-CoV-2 test. This test was developed and its performance characteristics determined by [facility]. This test has not been FDA cleared [...] or revoked sooner. ID Date Data Source [id number] 04/06/2020 12:25:00 PM EST [facility] Name Value Range Interpretation Code Description Data Marisela rce(s) Supporting Document(s) Appearance, Urine RFX Laboratory test result [facility]) PH,Urine RFX 6.0 units 5.0-9.0 [facility]) Specific [place] Ur Auto RFX 1.013 1.002-1.035 [facility] Color, Urine RFX Laboratory test result [facility]) Ketone, Urine Auto RFX Laboratory test result MEDENT ([facility]) Protein, Urine Auto RFX Laboratory test result [facility]) Glucose, Urine (Ua) Auto RFX Laboratory test result [facility]) Nitrite, Urine Auto RFX Laboratory test result [facility]) Bilirubin, Urine Auto RFX Laboratory test result [facility]) Urobilinogen, Urine Auto RFX 4.0 mg/dL 0.0-2.0 [facility]) Blood, Urine Blood RFX Laboratory test result MEDENT ([facility]) Leukocyte Esterase Ur Auto RFX Laboratory test result [facility]) WBC, Urine Auto RFX 63 /HPF 0-3 MEDENT ([facility]) Squam Epithelial Cell Ur Aurfx 2 /HPF 0-6 [facility] Bacteria, Urine Auto RFX Laboratory test result [facility] RBC, Urine Auto RFX Laboratory test result 0-3 [facility] ([facility]) Hyaline Cast, Urine Auto RFX 0 /LPF 0-1 M [facility] ([facility]) Mucus, Urine RFX Laboratory test result [facility] ([facility]) ID Date Data Source [id number] 04/06/2020 11:44:00 AM EST [facility] Name Value Range Interpretation Code Description Data Marisela rce(s) Supporting Document(s) Blood Type Laboratory test result [facility] ([facility]) AB Screen (Indirect Venita)Vis Laboratory test result [facility]) ID Date Data Source [id number] 04/06/2020 11:44:00 AM EST [facility] ([facility]) Name Value Range Interpretation Code Description Data Marisela rce(s) Supporting Document(s) Lipoprotein lipase [Enzymatic activity/volume] in Serum or Plasm a 45 U/L 73-393 [facility] ([facility]) <content>note:<nlbl:demographic_changed> </content>
<content></content> Amylase [Enzymatic activity/volume] in Serum or Plasma 20 U/L 25- 115 [facility] ([facility]) <content>note:<nlbl:demographic_changed> </content>
<content></content> ID Date Data Source [id number] 04/06/2020 11:44:00 AM EST [facility] ([facility]) Name Value Range Interpretation Code Description Data Marisela rce(s) Supporting Document(s) Glucose, Fasting 115 mg/dL 70-100 [facility] ([facility]) Glomerular Filtration Rate [facility] <content>Units are mL/min/1.73 m2</content>
<content></content>
<content>Chronic Kidney Disease Staging per NKF:</content>
<content></content>
<content>Stage I & II GFR >=60 Normal to Mildly Decreased</content>
<content>Stage III GFR 30-59 Moderately Decreased</content>
<content>Stage IV GFR 15-29 Severely Decreased</content>
<content>Stage V GFR <15 Very Little GFR Left</content>
<content>ESRD GFR <15 on PROPERTY CLAIM REP</content>
<content></content> Blood Urea Nitrogen 10 mg/dL 7-18 [facility] ([facility]) Creatinine For GFR 0.96 mg/dL 0.70-1.30 [facility] ([facility]) Potassium Serum 3.8 meq/L 3.5-5.1 [facility] ([facility]) Carbon Dioxide Level 28 meq/L 21-32 [facility] ([facility]) Chloride Level 104 meq/L 98-107 [facility] ([facility]) Sodium Level 138 meq/L 136-145 [facility] ([facility]) Calcium Level 8.1 mg/dL 8.8-10.2 [facility] ([facility]) Anion Gap 6 meq/L 8-16 [facility] ([facility]) ID Date Data Source [id number] 04/06/2020 11:44:00 AM EST [facility] ([facility] Name Value Range Interpretation Code Description Data Marisela rce(s) Supporting Document(s) Ast/Sgot 24 U/L 7-37 [facility] ([facility]) Alt/SGPT 13 U/L 12-78 [facility] ([facility]) Alkaline Phosphatase 133 U/L 45-117 [facility] ([facility]) Bilirubin,Direct 0.4 mg/dL 0.0-0.2 [facility] ([facility]) Bilirubin,Total 0.9 mg/dL 0.2-1.0 [facility] ([facility]) Albumin/Globulin Ratio 0.6 [facility] ([facility]) Total Protein 7.7 GM/DL 6.4-8.2 [facility] ([facility]) Albumin 2.9 GM/DL 3.2-5.2 [facility] ([facility]) ID Date Data Source [id number] 04/06/2020 11:44:00 AM EST [facility] ([facility]) Name Value Range Interpretation Code Description Data Marisela rce(s) Supporting Document(s) MB/CK Relative Index 2.78 [facility] ([facility]) <content>DIAGNOSIS CRITERIA</content>
<content>MMB ng/ml Relative Index (RI)</content>
<content>NON-AMI < or = 5 N/A</content>
<content>DAWSON ZONE > 5 < or = 4</content>
<content>AMI > 5 > 4</content>
<content></content> CK-MB Value Mass Laboratory test result [facility] ([facility]) CPK Creatine Phosphokinase 36 U/L 39-308 [facility] ([facility]) Troponin I Laboratory test result [facility]) <content>Troponin I Reference Interval f or Siemens [place] LOCI:</content>
<content></content>
<content>99th Percentile= 0.00-0.045 ng/ml</content>
<content></content>
<content>Risk Stratification:</content>
<content><= 0.10 ng/ml Decreased Risk for Adverse Clinical</content>
<content>Events.</content>
<content>0.10-1.50 ng/ml Increased Risk for Adverse Clinical</content>
<content>Events. Evaluation of additional</content>
<content>criterion and/or repeat testing in 2-6</content>
<content>hours is suggested to rule out myocardial</content>
<content>damage.</content>
<content>>= 1.50 ng/ml Indicative of Myocardial Injury.</content>
<content></content> ID Date Data Source [id number] 04/06/2020 11:44:00 AM EST [facility] ([facility]) Name Value Range Interpretation Code Description Data Marisela rce(s) Supporting Document(s) White Blood Count 8.7 10 4.0-10.0 [facility] ([facility]) Mean Corpuscular Volume 96.4 fl 80.0-96.0 [facility] ([facility]) Hematocrit 37.8 % 42.0-52.0 [facility] Hemoglobin 11.6 g/dL 13.5-17.5 [facility] Red Blood Count 3.92 10 4.30-6.10 [facility] ([facility]) Red Cell Distribution Width 15.4 % 11.5-14.5 SD D[facility] ([facility]) Mean Corpuscular HGB Conc 30.7 g/dL 32.0-36.5 MEDE NT ([facility]) Mean Corpuscular Hemoglobin 29.6 pg 27.0-33.0 ME DENT ([facility]) Lymph % 5.9 % 24.0-44.0 [facility] Platelet Count, Automated 144 10 150-450 MEDE NT ([facility]) Neutrophils % 86.7 % 36.0-66.0 [facility] ([facility]) Ramsey % 6.3 % 0.0-5.0 [facility] Eos % 0.2 % 0.0-3.0 [facility] Baso % 0.2 % 0.0-1.0 [facility] Immature Granulocyte % 0.7 % 0-3.0 [facility] ([facility]) Neutrophils # 7.6 10 1.5-8.5 [facility] ([facility]) Nucleated Red Blood Cell % 0.0 % 0-0 MED [facility] ([facility]) Eos # 0.0 10 0.0-0.5 [facility] Ramsey # 0.6 10 0.0-0.8 [facility] Lymph # 0.5 10 1.5-5.0 [facility] Baso # 0.0 10 0.0-0.2 [facility] ID Date Data Source [id number] 04/06/2020 11:17:00 AM EST [facility] ([facility]) Name Value Range Interpretation Code Description Data Marisela rce(s) Supporting Document(s) Lactate [Mass/volume] in Serum or Plasma 2.2 mmol/L 0.4-2.0 Above upper panic limits [facility] ([facility]) BACK AND VERIFIED BY ID Date Data Source URINE CULTURE 03/21/2020 12:00:00 AM EST eCW1 ([facility]) Name Value Range Interpretation Code Description Data Marisela rce(s) Supporting Document(s) URINE CULTURE eCW1 ([facility]) ID Date Data Source UA URINALYSIS 03/21/2020 12:00:00 AM EST eCW1 ([facility]) Name Value Range Interpretation Code Description Data Marisela rce(s) Supporting Document(s) UA URINALYSIS eCW1 ([facility]) ID Date Data Source [id number] 01/26/2020 12:04:00 PM EDT [facility] ([facility]) Name Value Range Interpretation Code Description Data Marisela rce(s) Supporting Document(s) Urine Color Laboratory test result Abnormal (applies to non-numeric results) [facility] ([facility]) Urine Appearance Laboratory test result Abnormal (applies to non-numeric results) [facility] ([facility]) Specific gravity of Urine 1.020 1.005-1.030 SD DENT ([facility]) Urine PH 6.5 units 5.0-9.0 [facility] Urine Blood Laboratory test result Abnormal (applies to non-numeric results) [facility] ([facility]) Urine Protein Laboratory test result 0-0 Abnormal (applies to non-numeric results) [facility] ([facility]) Urine Leukocytes Laboratory test result Abnormal (applies to non-numeric results) [facility] ([facility]) Urine Ketone Laboratory test result [facility]E NT ([facility]) Urine Nitrite Laboratory test result Abnormal (applies to non-numeric results) [facility] ([facility]) Glucose [Presence] in Urine Laboratory test result [facility] ([facility]) Urine Urobilinogen Laboratory test result 0.2-1.0 Abnorm al (applies to non- numeric results) [facility] ([facility]) Bilirubin.total [Mass/volume] in Serum or Plasma Laboratory test resu lt [facility] ([facility]) ID Date Data Source [id number] 01/26/2020 12:04:00 PM EDT [facility]) Name Value Range Interpretation Code Description Data Marisela rce(s) Supporting Document(s) Thyrotropin [Units/volume] in Serum or Plasma by Detec tion limit <= 0.05 mIU/L 7.15 uIU/mL 0.36-3.74 [facility] ID Date Data Source [id number] 01/26/2020 12:04:00 PM EDT [facility] ([facility]) Name Value Range Interpretation Code Description Data Marisela rce(s) Supporting Document(s) Erythrocytes [#/volume] in Blood by Automated count 4.43 x10*6/UL 4.2 0-6.30 [facility] ([facility]) Leukocytes [#/volume] in Blood by Automated count 7.5 x10*3/UL 4.1-10 .9 [facility] ([facility]) MCV 91.0 fL 80.0-97.0 [facility] ([facility]) Hemoglobin [Mass/volume] in Blood 13.8 g/dL 12.0-18.0 [facility] ([facility]) Hematocrit [Volume Fraction] of Blood by Automated count 40.4 % 3 7.0-51.0 [facility] ([facility]) MCH 31.2 pg 26.0-32.0 [facility] ([facility]) MCHC 34.2 g/dL 31.0-38.0 [facility] ([facility]) Erythrocyte distribution width [Ratio] by Automated count 13.1 % 11.6-13.7 [facility] ([facility]) Platelets [#/volume] in Blood by Automated count 190 x10*3/UL 140-440 [facility] ([facility]) Lymph % 17.3 % 10.0-58.5 [facility] ([facility]) MPV 8.5 FL 7.8-11.0 [facility] ([facility]) Mid % 4.4 % 1.7-9.3 [facility] ([facility]) Mid # 0.3 x10*3/UL 0.1-0.6 [facility] ([facility]) Neut % 78.3 % 37.0-92.0 [facility] ([facility]) Lymph # 1.3 x10*3/UL 0.6-4.1 [facility] ([facility]) Neut # 5.9 x10*3/UL 2.0-7.8 [facility] ([facility]) ID Date Data Source [id number] 06/16/2019 11:52:00 AM EST [facility] ([facility]) Name Value Range Interpretation Code Description Data Marisela rce(s) Supporting Document(s) Thyroxine (T4) free [Mass/volume] in Serum or Plasma 1.14 ng/dL 0.76- 1.46 [facility] ([facility]) ID Date Data Source [id number] 06/16/2019 11:52:00 AM EST [facility] ([facility]) Name Value Range Interpretation Code Description Data Marisela rce(s) Supporting Document(s) Thyrotropin [Units/volume] in Serum or Plasma by Detec tion limit <= 0.05 mIU/L 6.30 uIU/mL 0.36-3.74 [facility] ([facility] ) ID Date Data Source [id number] 06/16/2019 11:52:00 AM EST [facility] ([facility]) Name Value Range Interpretation Code Description Data Marisela rce(s) Supporting Document(s) Triglyceride [Mass/volume] in Serum or Plasma 80 mg/dL 30-150 [facility] ([facility]) Cholesterol [Mass/volume] in Serum or Plasma 173 mg/dL 131-200 [facility] ([facility]) Cholesterol in HDL [Mass/volume] in Serum or Plasma 68 mg/dL 35-60 [facility] ([facility]) Cholesterol in LDL [Mass/volume] in Serum or Plasma by calcu lation 89 CALC 50-159 [facility] ([facility]) ID Date Data Source [id number] 06/16/2019 11:52:00 AM EST [facility] ([facility]) Name Value Range Interpretation Code Description Data Marisela rce(s) Supporting Document(s) Urea nitrogen [Mass/volume] in Serum or Plasma 8 mg/dL 7-18 [facility] ([facility]) Glucose [Mass/volume] in Serum or Plasma 95 mg/dL 74-99 [facility] ([facility]) 100-125 mg/dL PRE-DIABETES/FASTING >126 mg/dL DIABETES/FASTING Potassium [Moles/volume] in Serum or Plasma 4.0 meq/L 3.5-5.1 [facility] ([facility]) Creatinine 0.9 mg/dL 0.6-1.3 [facility] Sodium [Moles/volume] in Serum or Plasma 140 meq/L 136-145 [facility] ([facility]) Carbon dioxide, total [Moles/volume] in Serum or Plasma 31 meq/L 21 -32 [facility] ([facility]) Calcium [Mass/volume] in Serum or Plasma 8.8 mg/dL 8.5-10.1 [facility] ([facility]) Chloride [Moles/volume] in Serum or Plasma 103 meq/L 98-107 [facility] ([facility]) Glomerular filtration rate/1.73 sq M pre dicted among non-blacks [Volume Rate/Area] in Serum or Plasma by Creatinine-based formula (MDRD) Laboratory test result [facility] ([facility] Glomerular filtration rate/1.73 sq M pre dicted among blacks [Volume Rate/Area] in Serum or Plasma by Creatinine-based formula (MDRD) Laboratory test result [facility] ([facility]) <content>CHRONIC KIDNEY DISEASE STAGING PER NKF</content>
<content></content>
<content>STAGE I & II GFR >= 60 NORMAL TO MILDLY DECREASED</content>
<content>STAGE III GFR 30-59 MODERATELY DECREASED</content>
<content>STAGE IV GFR 15-29 SEVERELY DECREASED</content>
<content>STAGE V GFR <15 VERY LITTLE GFR LEFT</content>
<content>ESRD GFR <15 ON PROPERTY CLAIM REP</content>
<content></content> ID Date Data Source [id number] 06/16/2019 11:52:00 AM EST [facility] ([facility]) Name Value Range Interpretation Code Description Data Marisela rce(s) Supporting Document(s) Magnesium 1.9 mg/dL 1.8-2.4 [facility] ID Date Data Source [id number] 06/16/2019 11:52:00 AM EST [facility] ([facility]) Name Value Range Interpretation Code Description Data Marisela rce(s) Supporting Document(s) Erythrocytes [#/volume] in Blood by Automated count 4.97 x10*6/UL 4.2 0-6.30 [facility] ([facility]) Leukocytes [#/volume] in Blood by Automated count 6.7 x10*3/UL 4.1-10 .9 [facility] ([facility]) Hemoglobin [Mass/volume] in Blood 15.0 g/dL 12.0-18.0 [facility] ([facility]) Hematocrit [Volume Fraction] of Blood by Automated count 45.7 % 3 7.0-51.0 [facility] ([facility]) MCH 30.2 pg 26.0-32.0 [facility] MCV 91.9 fL 80.0-97.0 [facility]) Platelets [#/volume] in Blood by Automated count 165 x10*3/UL 140-440 [facility] ([facility]) Erythrocyte distribution width [Ratio] by Automated count 13.2 % 11.6-13.7 [facility] ([facility]) MCHC 32.9 g/dL 31.0-38.0 [facility] Lymph % 19.8 % 10.0-58.5 [facility]) MPV 9.3 FL 7.8-11.0 [facility] Mid % 6.9 % 1.7-9.3 [facility] Lymph # 1.3 x10*3/UL 0.6-4.1 [facility] ([facility]) Mid # 0.5 x10*3/UL 0.1-0.6 [facility] ([facility]) Neut % 73.3 % 37.0-92.0 [facility] Neut # 4.9 x10*3/UL 2.0-7.8 [facility] ([facility]) ID Date Data Source [id number] 06/10/2019 04:55:00 PM [facility] Name: ALICEVALERIAJULIANO W : 1955 Age/Sex: 64M Ordering Provider: Luis Gold MD Med Rec #: [id number] Reg Status: [facility] Room #: Date of Service: 06/10/19 Report Number: [id number] cc:Luis oGld MD Send Report To: [id number] XRP/XR Hip Rt 1-2 view w AP [...] Date/Time: 06/10/19 1254 Transcribed Date/Time: 06/10/19 1655 Furniture Reproducer: DENISE Name Value Range Interpretation Code Description [...] Smoker completed Former Smoker eCW1 ([facility]) Alcohol intake 02/15/2020 12:00:00 AM EDT Not Currently completed [facility] Cigarette pack-years 02/15/2020 12:00:00 AM EDT UNK completed [facility] Cigarettes smoked current (pack per day) - Reported 02/15/20 20 12:00:00 AM EDT UNK completed [facility] Smoking 02/15/2020 12:00:00 AM EDT Former smoker completed Former smoker [facility] 01/10/2020 12:00:00 AM EDT Cigarette Smoker completed Cig arette Smoker [facility] 01/10/2020 12:00:00 AM EDT Current smoker completed Curre nt smoker [facility] Vital Signs ID Date Data Source UNK Name Value Range Interpretation Code Description Data Source(s) Body mass index (BMI) [Ratio] 76.64 kg/m2 76.64 kg/m2 [facility] Body weight 190.057 kg 190.057 kg [facility] Body height 157.5 cm 157.5 cm [facility] Diastolic blood pressure 62 mm[Hg] 62 mm[Hg] [facility] Systolic blood pressure 110 mm[Hg] 110 mm[Hg] S [facility] Body height 65.25 [in_i] 65.25 [in_i] [facility] 5'5.25" Heart rate 52 /min 52 /min [facility] ([facility]) Diastolic blood pressure 80 mm[Hg] 80 mm[Hg] [facility] ([facility]) LT Arm Systolic blood pressure 110 mm[Hg] 110 mm[Hg] [facility] LT Arm Oxygen saturation in Arterial blood by Pulse oximetry 94 % 94 % [facility] ([facility]) Air Body height 65.25 [in_i] 65.25 [in_i] [facility] 5'5.25" Heart rate 97 /min 97 /min [facility] ([facility]) Diastolic blood pressure 70 mm[Hg] 70 mm[Hg] [facility] ([facility]) Systolic blood pressure 112 mm[Hg] 112 mm[Hg] [facility] Diastolic blood pressure 72 mm[Hg] 72 [...] Body height 63 [in_i] 63 [in_i] eCW1 ([facility]) Body weight 395 [lb_av] 395 [lb_av] eCW1 ([facility]) Body mass index (BMI) [Ratio] 62.1 kg/m2 62.1 k g/m2 [facility] ([facility]) Body weight 376.00 [lb_av] 376.00 [lb_av] MEDEN T ([facility]) Body height 65.25 [in_i] 65.25 [in_i] [facility] ([facility]) 5'5.25" Body mass index (BMI) [Ratio] 66.2 kg/m2 66.2 k g/m2 [facility] ([facility]) Oxygen saturation in Arterial blood by Pulse oximetry 99 % 99 % [facility] ([facility]) RM Air Body weight 401.00 [lb_av] 401.00 [lb_av] MEDEN T ([facility]) Body height 65.25 [in_i] 65.25 [in_i] [facility] ([facility]) 5'5.25" Heart rate 87 /min 87 /min [facility] ([facility]) Diastolic blood pressure 70 mm[Hg] 70 mm[Hg] [facility] ([facility]) Systolic blood pressure 110 mm[Hg] 110 mm[Hg] M EDENT ([facility]) Body weight 176.450 kg 176.450 kg [facility] ([facility]) Body mass index (BMI) [Ratio] 64.7 kg/m2 64.7 k g/m2 [facility] ([facility]) Body weight 389.00 [lb_av] 389.00 [lb_av] MEDEN T ([facility]) Body height 65 [in_i] 65 [in_i] [facility] ([facility]) 5'5" Diastolic blood pressure 68 mm[Hg] 68 mm[Hg] [facility] ([facility]) Systolic blood pressure 114 mm[Hg] 114 mm[Hg] [facility] Body weight 180.533 kg 180.533 kg [facility] ([facility]) Body mass index (BMI) [Ratio] 66.2 kg/m2 66.2 k g/m2 [facility] ([facility]) Body weight 398.00 [lb_av] 398.00 [lb_av] MEDEN T ([facility]) Body height 65 [in_i] 65 [in_i] [facility] ([facility]) 5'5" Diastolic blood pressure 80 mm[Hg] 80 mm[Hg] [facility] ([facility]) Systolic blood pressure 150 mm[Hg] 150 mm[Hg] [facility] ([facility]) Body mass index (BMI) [Ratio] 64.9 kg/m2 64.9 k g/m2 [facility] Oxygen saturation in Arterial blood by Pulse oximetry 94 % 94 % [facility] Air Body weight 393.00 [lb_av] 393.00 [lb_av] [facility] T ([facility]) Body height 65.25 [in_i] 65.25 [in_i] [facility] 5'5.25" Heart rate 78 /min 78 /min [facility] ([facility]) Diastolic blood pressure 64 mm[Hg] 64 mm[Hg] [facility] Systolic blood pressure 120 mm[Hg] 120 mm[Hg] M [facility]) ID Date Data Source [id number] 06/23/2019 08:55:00 AM EST [facility] Name Value Range Interpretation Code Description Data Source(s) Weight (Calculated Kilograms) 146.96 146.96 [facility] Height (Calculated Centimeters) 165.1 165. 1 [facility] Body Mass Index (BMI) 53.8 53.8 [facility] Patient Treatment Plan of Care Planned Activity Planned Date Details Description Data Source (s) Acetaminophen 06/04/2020 12:00:00 AM EST NETSMART ([facility]) Sertraline HCl 100 MG 06/04/2020 12:00:00 AM EST [facility]SM[facility] ([facility]) Xarelto 20 MG 06/04/2020 12:00:00 AM [facility] Nystatin Powder 06/04/2020 12:00:00 [facility] Metoprolol Tartrate 50 MG 06/04/2020 12:00:00 AM EST [facility]SMART ([facility]) Furosemide 40 MG 06/04/2020 12:00:00 AM EST [facility]SM[facility] ([facility]) Doxycycline Hyclate 100 MG 06/04/2020 12:00:00 AM EST [facility] Sertraline 50 MG Oral Tablet 05/23/2020 12:00:00 AM EST [facility] rivaroxaban 20 MG Oral Tablet 05/23/2020 12:00:00 AM EST [facility] rivaroxaban 20 MG Oral Tablet 03/14/2020 12:00:00 AM EST [facility] Zolpidem tartrate 10 MG Oral Tablet 01/30/2020 12:00:00 AM EDT [facility] Sertraline 50 MG Oral Tablet 01/23/2020 12:00:00 AM EDT [facility]
[2020-06-25 04:14] LABS: BASO # 0.1 10^3/uL (0.0-0.2); BASO % 0.6 % (0.0-1.0); EOS # 0.4 10^3/uL (0.0-0.5); EOS % 3.4 % (0.0-3.0); HEMATOCRIT 31.9 % (42.0-52.0); HEMOGLOBIN 10.1 g/dl (13.5-17.5); LYMPH # 1.3 10^3/uL (1.5-5.0); LYMPH % 10.8 % (24.0-44.0); MEAN CORPUSCULAR HEMOGLOBIN 29.4 pg (27.0-33.0); MEAN CORPUSCULAR HGB CONC 31.7 g/dl (32.0-36.5); MONO % 8.5 % (2.0-8.0); NEUTROPHILS # 8.9 10^3/uL (1.5-8.5); PLATELET COUNT, AUTOMATED 153 10^3/uL (150-450); RED BLOOD COUNT 3.43 10^6/uL (4.30-6.10); WHITE BLOOD COUNT 11.9 10^3/uL (4.0-10.0)
--- OUTSIDE RECORDS SUMMARY | 2020-06-25 04:35 | CCD ---
Author Author [facility] Organization [facility] Address Unknown Phone Unavailable Care Team Providers Care Category Development Manager Name Role Phone Harley Gurrola MD Unavailable Unavailable Harley Gurrola MD Unavailable Unavailable Harley Gurrola MD Unavailable Unavailable Harley Gurrola MD Unavailable Unavailable Harley Gurrola MD Unavailable Unavailable Harley Gurrola MD Unavailable Unavailable Harley Gurrola MD Unavailable Unavailable Harley Gurrola MD Unavailable Unavailable IzabelaHarley MD Unavailable Unavailable Oak RidgeHarley MD Unavailable Unavailable Oak RidgeHarley MD Unavailable Unavailable IzabelaHarley MD Unavailable Unavailable Oak RidgeHarley MD Unavailable Unavailable Oak RidgeHarley MD Unavailable Unavailable IzabelaHarley MD Unavailable Unavailable IzabelaHarley MD Unavailable Unavailable Oak RidgeHarley MD Unavailable Unavailable Oak RidgeHarley MD Unavailable Unavailable IzabelaHarley MD Unavailable Unavailable IzabelaHarley MD Unavailable Unavailable IzabelaHarley MD Unavailable Unavailable IzabelaHarley MD Unavailable Unavailable IzabelaHarley MD Unavailable Unavailable Oak RidgeHarley MD Unavailable Unavailable IzabelaHarley MD Unavailable Unavailable Oak RidgeHarley MD Unavailable Unavailable IzabelaHarley MD Unavailable Unavailable Oak RidgeHarley MD Unavailable Unavailable IzabelaHarley MD Unavailable Unavailable IzabelaHarley MD Unavailable Unavailable IzabelaHarley MD Unavailable Unavailable Oak RidgeHarley MD Unavailable Unavailable IzabelaHarley MD Unavailable Unavailable Oak RidgeHarley MD Unavailable Unavailable Oak RidgeHarley MD Unavailable Unavailable IzabelaHarley MD Unavailable Unavailable IzabelaHarley MD Unavailable Unavailable IzabelaHarley MD Unavailable Unavailable Oak RidgeHarley MD Unavailable Unavailable IzabelaHarley MD Unavailable Unavailable IzabelaHarley MD Unavailable Unavailable IzabelaHarley MD Unavailable Unavailable Oak RidgeHarley MD Unavailable Unavailable IzabelaHarley tate MD Unavailable Unavailable Oak RidgeaHrley MD Unavailable Unavailable Oak RidgeHarley MD Unavailable Unavailable IzabelaHarley MD Unavailable Unavailable IzabelaHarley MD Unavailable Unavailable Oak RidgeHarley MD Unavailable Unavailable Oak RidgeHarley MD Unavailable Unavailable IzabelaHarley tate MD Unavailable Unavailable IzabelaHarley MD Unavailable Unavailable IzabelaHarley MD Unavailable Unavailable IzabelaHarley MD Unavailable Unavailable IzabelaHarley MD Unavailable Unavailable Oak RidgeHarley MD Unavailable Unavailable Oak RidgeHarley MD Unavailable Unavailable IzabelaHarley MD Unavailable Unavailable IzabelaHarley MD Unavailable Unavailable Oak RidgeHarley MD Unavailable Unavailable IzabelaHarley MD Unavailable Unavailable Oak RidgeHarley MD Unavailable Unavailable IzabelaHarley MD Unavailable Unavailable Oak RidgeHarley MD Unavailable Unavailable IzabelaHarley MD Unavailable Unavailable IzabelaHarley MD Unavailable Unavailable IzabelaHarley MD Unavailable Unavailable IzabelaHarley MD Unavailable Unavailable Oak RidgeHarley MD Unavailable Unavailable IzabelaHarley MD Unavailable Unavailable Oak RidgeHarley MD Unavailable Unavailable IzabelaHarley MD Unavailable Unavailable IzabelaHarley MD Unavailable Unavailable Oak RidgeHarley MD Unavailable Unavailable IzabelaHarley MD Unavailable Unavailable IzabelaHarley MD Unavailable Unavailable IzabelaHarley MD Unavailable Unavailable [place] F Lanre FIERRO Unavailable Unavailable Oak RidgeHarley MD Unavailable Unavailable Izabela F Lanre FIERRO Unavailable Unavailable [place] F Lanre FIERRO Unavailable Unavailable [place] F Lanre FIERRO Unavailable Unavailable IzabelaHarley MD Unavailable Unavailable IzabelaHarley MD Unavailable Unavailable Oak RidgeHarley MD Unavailable Unavailable IzabelaHarley MD Unavailable Unavailable [...] Unavailable Unavailable ImeldaNataliia avalos MD Unavailable Unavailable aNtaliia Segura MD Unavailable Unavailable Nataliia Segura MD [...] Nataliia Segura MD Unavailable Unavailable Brock, Jeannette MILANESE KNITTING MACHINE OPERATOR Unavailable Unavailable Brock, Jeannette MILANESE KNITTING MACHINE OPERATOR Unavailable Unavailable Brock, Jeannette MILANESE KNITTING MACHINE OPERATOR Unavailable Unavailable Brock, Jeannette MILANESE KNITTING MACHINE OPERATOR Unavailable Unavailable Brock, Jeannette MILANESE KNITTING MACHINE OPERATOR Unavailable Unavailable Brock, Jeannette MILANESE KNITTING MACHINE OPERATOR Unavailable Unavailable Brock, Jeannette MILANESE KNITTING MACHINE OPERATOR Unavailable Unavailable Brock, Jeannette MILANESE KNITTING MACHINE OPERATOR Unavailable Unavailable Brock, Jeannette MILANESE KNITTING MACHINE OPERATOR Unavailable Unavailable Brock, Jeannette MILANESE KNITTING MACHINE OPERATOR Unavailable Unavailable Brock, Jeannette MILANESE KNITTING MACHINE OPERATOR Unavailable Unavailable Brock, Jeannette MILANESE KNITTING MACHINE OPERATOR Unavailable Unavailable Brock, Jeannette MILANESE KNITTING MACHINE OPERATOR Unavailable Unavailable Brock, Jeannette MILANESE KNITTING MACHINE OPERATOR Unavailable Unavailable Brock, Jeannette MILANESE KNITTING MACHINE OPERATOR Unavailable Unavailable Brock, Jeannette MILANESE KNITTING MACHINE OPERATOR Unavailable Unavailable Brock, Jeannette MILANESE KNITTING MACHINE OPERATOR Unavailable Unavailable Brock, Jeannette MILANESE KNITTING MACHINE OPERATOR Unavailable Unavailable Brock, Jeannette MILANESE KNITTING MACHINE OPERATOR Unavailable Unavailable Brock, Jeannette MILANESE KNITTING MACHINE OPERATOR Unavailable Unavailable Brock, Jeannette MILANESE KNITTING MACHINE OPERATOR Unavailable Unavailable Brock, Jeannette MILANESE KNITTING MACHINE OPERATOR Unavailable Unavailable Brock, Jeannette MILANESE KNITTING MACHINE OPERATOR Unavailable Unavailable Brock, Jeannette MILANESE KNITTING MACHINE OPERATOR Unavailable Unavailable Brock, Jeannette MILANESE KNITTING MACHINE OPERATOR Unavailable Unavailable Brock, Jeannette MILANESE KNITTING MACHINE OPERATOR Unavailable Unavailable Brock, Jeannette MILANESE KNITTING MACHINE OPERATOR Unavailable Unavailable PICKERAL JR, J MARIAH PA-C [...] MARIAH PA-C Unavailable Unavailable PICKERAL JR, J MARAIH PA-C Unavailable Unavailable PICKERAL JR, J MARIAH PA-C Unavailable Unavailable PICKERAL JR, J MARIAH PA-C Unavailable Unavailable PICKERAL JR, J MARIAH PA-C Unavailable Unavailable Ancelmo, Tiffany MILANESE KNITTING MACHINE OPERATOR Unavailable Unavailable Ancelmo, Tiffany MILANESE KNITTING MACHINE OPERATOR Unavailable Unavailable Ancelmo, Tiffany MILANESE KNITTING MACHINE OPERATOR Unavailable Unavailable Ancelmo, Tiffany MILANESE KNITTING MACHINE OPERATOR Unavailable Unavailable Ancelmo, Tiffany MILANESE KNITTING MACHINE OPERATOR Unavailable Unavailable Ancelmo, Tiffany MILANESE KNITTING MACHINE OPERATOR Unavailable Unavailable Ancelmo, Tiffany MILANESE KNITTING MACHINE OPERATOR Unavailable Unavailable Ancelmo, Tiffany MILANESE KNITTING MACHINE OPERATOR Unavailable Unavailable Ancelmo, Tiffany MILANESE KNITTING MACHINE OPERATOR Unavailable Unavailable Ancelmo, Tiffany MILANESE KNITTING MACHINE OPERATOR Unavailable Unavailable Ancelmo, Tiffany MILANESE KNITTING MACHINE OPERATOR Unavailable Unavailable Ancelmo, Tiffany MILANESE KNITTING MACHINE OPERATOR Unavailable Unavailable Ancelmo, Tiffany MILANESE KNITTING MACHINE OPERATOR Unavailable Unavailable Ancelmo, Tiffany MILANESE KNITTING MACHINE OPERATOR Unavailable Unavailable Nacelmo, Tiffany MILANESE KNITTING MACHINE OPERATOR Unavailable Unavailable Ancelmo, Tiffany MILANESE KNITTING MACHINE OPERATOR Unavailable Unavailable Ancelmo, Tiffany MILANESE KNITTING MACHINE OPERATOR Unavailable Unavailable Ancelmo, Tiffany MILANESE KNITTING MACHINE OPERATOR Unavailable Unavailable Ancelmo, Tiffany MILANESE KNITTING MACHINE OPERATOR Unavailable Unavailable Ancelmo, Tiffany MILANESE KNITTING MACHINE OPERATOR Unavailable Unavailable Ancelmo, Tiffany MILANESE KNITTING MACHINE OPERATOR Unavailable Unavailable Ancelmo, Tiffany MILANESE KNITTING MACHINE OPERATOR Unavailable Unavailable Ancelmo, Tiffany MILANESE KNITTING MACHINE OPERATOR Unavailable Unavailable Ancelmo, Tiffany MILANESE KNITTING MACHINE OPERATOR Unavailable Unavailable Ancelmo, Tiffany MILANESE KNITTING MACHINE OPERATOR Unavailable Unavailable Ancelmo, Tiffany MILANESE KNITTING MACHINE OPERATOR Unavailable Unavailable Ancelmo, Tiffany MILANESE KNITTING MACHINE OPERATOR Unavailable Unavailable Ancelmo, Tiffany MILANESE KNITTING MACHINE OPERATOR Unavailable Unavailable Ancelmo, Tiffany MILANESE KNITTING MACHINE OPERATOR Unavailable Unavailable Ancelmo, Tiffany MILANESE KNITTING MACHINE OPERATOR Unavailable Unavailable Ancelmo, Tiffany MILANESE KNITTING MACHINE OPERATOR Unavailable Unavailable Ancelmo, Tiffany MILANESE KNITTING MACHINE OPERATOR Unavailable Unavailable Ancelmo, Tiffany MILANESE KNITTING MACHINE OPERATOR Unavailable Unavailable Ancelmo, Tiffany MILANESE KNITTING MACHINE OPERATOR Unavailable Unavailable Ancelmo, Tiffany MILANESE KNITTING MACHINE OPERATOR Unavailable Unavailable Ancelmo, Tiffany MILANESE KNITTING MACHINE OPERATOR Unavailable Unavailable Ancelmo, Tiffany MILANESE KNITTING MACHINE OPERATOR Unavailable Unavailable Ancelmo, Tiffany MILANESE KNITTING MACHINE OPERATOR Unavailable Unavailable Ancelmo, Tiffany MILANESE KNITTING MACHINE OPERATOR Unavailable Unavailable Ancelmo, Tiffany MILANESE KNITTING MACHINE OPERATOR Unavailable Unavailable Ancelmo, Tiffany MILANESE KNITTING MACHINE OPERATOR Unavailable Unavailable Ancelmo, Tiffany MILANESE KNITTING MACHINE OPERATOR Unavailable Unavailable Ancelmo, Tiffany MILANESE KNITTING MACHINE OPERATOR Unavailable Unavailable Ancelmo, Tiffany MILANESE KNITTING MACHINE OPERATOR Unavailable Unavailable Ancelmo, Tiffany MILANESE KNITTING MACHINE OPERATOR Unavailable Unavailable Ancelmo, Tiffany MILANESE KNITTING MACHINE OPERATOR Unavailable Unavailable Ancelmo, Tiffany MILANESE KNITTING MACHINE OPERATOR Unavailable Unavailable Ancelmo, Tiffany MILANESE KNITTING MACHINE OPERATOR Unavailable Unavailable Ancelmo, Tiffany MILANESE KNITTING MACHINE OPERATOR Unavailable Unavailable Ancelmo, Tiffany MILANESE KNITTING MACHINE OPERATOR Unavailable Unavailable Ancelmo, Tiffany MILANESE KNITTING MACHINE OPERATOR Unavailable Unavailable Ancelmo, Tiffany MILANESE KNITTING MACHINE OPERATOR Unavailable Unavailable Ancelmo, Tiffany MILANESE KNITTING MACHINE OPERATOR Unavailable Unavailable Frio, V EAGLE PA-C Unavailable Unavailable Leroy, V EAGLE PA-C Unavailable Unavailable Leroy, V EAGLE PA-C Unavailable Unavailable Frio, V EAGLE PA-C Unavailable Unavailable Leroy, V [...] is protected by Article 27-F of the [facility] Public Health law. If you continue you may have access to information: Regarding HIV / AIDS; Provided by facilities licensed or operated by the [facility] Office of Mental Health; or Provided by the [facility] Office for People With Developmental Disabilities. If such information is present, then the following [facility] mandated warning applies: This information has [...] No Known Drug Aller gies active NETSMART ([facility] ) Family History Family Member Name Family Member Gender Family Member Status Date o f Status Description Data Source(s) Unknown Male Problem MEDENT ([facility], ) Encounters Encounter Providers Location Date Indications Data Source(s ) 06/04/2020 12:00:00 AM EST - 021 02:38:14 PM EST NETSMART ([facility]) Outpatient Attender: EAGLE TURNERCReferrer: Arturo CARROLL.AMBER.VIC 05/23/2020 12:00:00 AM EST [facility] Outpatient Attender: Jeannette Stein 01:40:00 PM EST MEDENT ([facility] ) [place] [address] [address] 04/24/2020 12:00:00 AM EST eCW1 ([facility]) Outpatient Attender: MARIAH Stein 1 05/30/2019 01:00:00 PM EST MEDENT ([facility] ) [place] [address] [address] 03/28/2020 12:00:00 AM EST eCW1 ([facility]) [place] [address] [address] 03/23/2020 12:00:00 AM EST eCW1 ([facility]) [place] [address] [address] 03/23/2020 12:00:00 AM EST eCW1 ([facility]) [place] [address] [address] 03/21/2020 12:00:00 AM EST eCW1 ([facility]) Outpatient Attender: MARIAH Stein 1 02:00:00 PM EDT MEDENT ([facility] ) Outpatient Attender: Lucila CARROLL.VIC-SJCassandra.VIC 11/2019 12:00:00 AM EDT - 02/15/2020 01:50:37 PM EDT [facility] Outpatient Attender: MARIAH Stein 0 01/26/2020 11:20:00 AM EDT MEDENT ([facility] ) Outpatient Attender: Tiffany DOVERP Izabela Stein 0 10/20/2019 02:00:00 PM EDT MEDENT ([facility] ) Outpatient 07/12/2019 03:15:00 PM EST [facility] Outpatient Attender: Gia Stein 10:00:00 AM EST MEDENT ([facility] ) Outpatient Attender: Luis Gold MD CPSCAORT-CPSCAORT 11:20:00 AM EST - 06/10/2019 11:21:00 AM EST [facility] Patient discharged. Immunizations Vaccine Date Status Description Data Source(s) Influenza, injectable, MDCK, preservative free, mariposa valent 03/30/2020 01:20:00 PM EST completed MEDENT ([facility]) Medications Medication Brand Name Start Date Product Form Dose Route Admi nistrative Instructions Pharmacy Instructions Status Indications Reaction Description Data Source(s) Sertraline HCl 100 MG Sertraline HCl 06/04/2020 12:00:00 AM EST 1.0 {tablet} completed NETSMART ( [facility]) Acetaminophen Acetaminophen 06/04/2020 12:00:00 AM EST 500.0 {mg } completed NETSMART ([facility]) Furosemide 40 MG Furosemide 06/04/2020 12:00:00 AM EST 0 {tablet } completed NETSMART ([facility]) Metoprolol Tartrate 50 MG Metoprolol Tartrate 06/04/2020 12:00:00 A M EST 0 {tablet} completed NETSMART ([facility]) Nystatin Powder Nystatin Powder 06/04/2020 12:00:00 AM EST 15.0 {gm} completed NETSMART ([facility]) Xarelto 20 MG Xarelto 06/04/2020 12:00:00 AM EST 1.0 {tablet} completed NETSMART ([facility]) Doxycycline Hyclate 100 MG Doxycycline Hyclate 06/04/2020 12:00:00 AM EST 0 {tablet} completed NETSMART ([facility]) Sertraline 50 MG Oral Tablet sertraline (ZOLOFT) 50 MG tablet sertraline (ZOLOFT) 50 MG tablet 05/23/2020 12:00:00 AM EST 50 mg Oral active Take 1 tablet (50 mg total) by mouth daily [facility] rivaroxaban 20 MG Oral Tablet rivaroxaban (XARELTO) 20 MG TABS rivaroxaban (XARELTO) 20 MG TABS 05/23/2020 12:00:00 AM EST 20 mg Oral active Take 1 tablet (20 mg total) by mouth daily [facility] Administration Of Flu Vaccine 03/30/2020 12:00:00 [...] tablet (20 mg total) by mouth daily [facility] 24 HR metoprolol succinate 50 MG [...] EDT 10 mg a ctive 10 mg [facility] NITROFURANTOIN, MACROCRYSTALS 100 MG Oral Capsule Nitrofuran toin Macrocrystal 01/26/2020 12:00:00 AM EDT ORAL completed MEDENT ([facility]) Sertraline 50 MG Oral Tablet sertraline (ZOLOFT) 50 MG tablet sertraline (ZOLOFT) 50 MG tablet 01/23/2020 12:00:00 AM EDT 50 mg Oral aborted Take 50 mg by mouth daily [facility] 50 mg 06/17/2019 12:00:00 AM EST [...] to mitchell Policy Mitchell Plan Information WELLCARE [id number] SP [id number] MEDICARE C [id number] S [id number] MEDICARE [id number] SP [id number] WELLCARE MEDICARE [id number] 24 [id number] WELLCARE MEDICARE [id number] Cara 18 [id number] MEDICARE [id number] SP [id number] A MEDICARE [id number] SP [id number] [id number] MEDICARE [id number] SP [id number] A WELLCARE O [id number] S [id number] WELLCARE [id number] SP [id number] WELLCARE [id number] Other [id number] Wellcare Health Plans [employer] Commercial [id number] Self [id number] Wellcare/Todays Optmcr Commercial [id number] Self [id number] [employer] Health Plans [employer] Commercial [id number] Self [id number] MEDICARE A [id number] Self [id number] A WELLCARE [id number] SP [id number] Wellcare/Todays Optmcr Commercial [id number] Self [id number] Wellcare Today's Options Commercial [id number] Self [id number] TODAYS OPTIONS [id number] SP [id number] [employer] [id number] Self [id number] [employer] [id number] Self [id number] [employer] [id number] Self [id number] TODAYS OPTIONS [id number] SP [id number] [employer] [id number] Self [id number] Todays Option Commercial [id number] Self [id number] Medicare Part A [place] Primary [id number] Self [id number] MEDICARE PART A-O/P [id number] 18 [id number] [place] [id number] 18 [id number] MEDICARE PART A [facility] [id number] 18 [id number] TODAYS OPTION -RECURRING [id number] CIGNA HEALTHCARE -RECURRING [id number] 18 [id number] CIGNA HEALTHCARE -RECURRING [id number] 18 [id number] TODAYS OPTION -RECURRING [id number] 18 [id number] MEDICARE -O/P [id number] 18 [id number] MEDICARE [id number] SP [id number] A MEDICARE C [id number] S [id number] A MEDICARE PART A-CLIN[facility] [id number] 18 [id number] MEDICARE OUTPATIENT M [id number] S [id number] WELLCARE HLTH PLANS O [id number] S [id number] UNAVAILABLE UNAVAILA BLE Problems, Conditions, and Diagnoses Code Display Name Description Problem Type Effective Dates Data Source(s) Z46.6 Encounter for fitting and adjustment of urinary device Encounter for fitting and adjustment of urinary device Problem 06/04/2020 12:00:00 AM EST NETSMART ([facility]) 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 s manager long term care (current) use of anticoagulants Problem 06/04/2020 12:00:00 AM EST NETSMART ([facility]) Z91.81 History of falling History of falling Problem 12:00:00 AM EST NETSMART ([facility]) Z87.891 Personal history of nicotine dependence Personal history of nicotine dependence Problem 06/04/2020 12:00:00 AM EST NETSMART ([facility]) Z68.44 Body mass index [BMI] 60.0-69.9, adult B beata mass index [BMI] 60.0-69.9, adult Problem 06/04/2020 12:00:00 AM EST NETSMART ([facility]) Z96.642 Presence of left artificial hip joint Pr esence of left artificial hip joint Problem 06/04/2020 12:00:00 AM EST NETSMART ([facility]) J18.9 Pneumonia, unspecified organism Pneumonia, unspecified organism Problem 06/04/2020 12:00:00 AM EST NETSMART ([facility] ) N20.0 Calculus of kidney Calculus of kidney Problem 12:00:00 AM EST NETSMART ([facility]) R33.8 Other retention of urine Other retention of urine Prob chele 06/04/2020 12:00:00 AM EST NETSMART ([facility] ) R29.6 Repeated falls Repeated falls Problem 06/04/2020 12:00: 00 AM EST NETSMART ([facility]) I48.91 Unspecified atrial fibrillation Unspecified atrial fib rillation Problem 06/04/2020 12:00:00 AM EST NETSMART ([facility] ) I50.32 Chronic diastolic (congestive) heart cain lure Chronic diastolic (congestive) heart failure Problem 06/04/2020 12:00:00 AM EST NETSMA RT ([facility]) K59.04 Chronic idiopathic constipation Chronic idiopathic con stipation Problem 06/04/2020 12:00:00 AM EST NETSMART ([facility] ) K57.30 Diverticulosis of large inte miah without perforation or abscess without bleeding Diverticulosis of large intestine withou t perforation or abscess without bleeding Problem 06/04/2020 12:00:00 AM EST NETSMART ([facility]) K43.9 Ventral hernia without obstruction or ga ngrene Ventral hernia without obstruction or gangrene Problem 06/04/2020 12:00:00 AM EST NETSMART ([facility]) M47.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, lumbar region Spondylosis without myelopathy or radiculopathy, lumbar region Problem 06/04/2020 12:00:00 AM EST NETSMART ([facility] ) M16.11 Unilateral primary osteoarthritis, right hip Unilateral primary osteoarthritis, right hip Problem 06/04/2020 12:00:00 AM EST NETSMAR T ([facility]) G47.00 Insomnia, unspecified Insomnia, unspecified Problem 06/04/2020 12:00:00 AM EST NETSMART ([facility] ) G47.33 Obstructive sleep apnea (adult) (pediatr ic) Obstructive sleep apnea (adult) (pediatric) Problem 06/04/2020 12:00:00 AM EST NETSMART ([facility]) E66.01 Morbid (severe) obesity due to excess ca lories Morbid (severe) obesity due to excess calories Problem 06/04/2020 12:00:00 AM EST NETSMART ( [facility]) 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 Problem 03/21/2020 12:00:00 AM EST eCW1 ([facility]) E66.01 Morbid obesity Morbid obesity [id number] 02/15/2020 12:00: 00 AM EDT [facility] I48.19 Persistent atrial fibrillation Persistent atrial fibri llation [id number] 02/15/2020 12:00:00 AM EDT [facility] I48.19 Other persistent atrial fibrillation Oth er persistent atrial fibrillation Diagnosis 02/15/2020 01:01:44 PM EDT [facility] E66.01 Morbid (severe) obesity due to excess ca lories MORBID (SEVERE) OBESITY DUE TO EXCESS CALORIES Diagnosis 06/10/2019 11:20:00 AM [facility] Z96.642 Presence of left artificial hip joint MT ESENCE OF LEFT ARTIFICIAL HIP JOINT Diagnosis 06/10/2019 11:20:00 AM [facility] M16.11 Unilateral primary osteoarthritis, right hip UNILATERAL PRIMARY OSTEOARTHRITIS, RIGHT HIP Diagnosis 06/10/2019 11:20:00 AM [facility] M25.551 Pain in right hip PAIN IN RIGHT HIP Diagnosis 06/10 11:20:00 AM [facility] Surgeries/Procedures Procedure Description Date Indications Data Source(s) POCT AMB EKG POCT AMB EKG Routine 05/23/2020 5:28 PM EST Persistent atrial fibrillation 05/23/2020 10:28:00 PM EST Pe rsistent atrial fibrillation [facility] Persistent atrial fibrillation ECG ROUTINE ECG W/LEAST 12 LDS W/I&R 01/26/2020 12:00: 00 AM [facility] outpatient clinic visit for assessment and ma nagement of a patient Hospital Outpatient Clinic Visit 06/10/2019 12:00:00 AM [facility] [address] X-RAY EXAM HIP UNI 2-3 VIEWS 06/10/2019 12:00:00 AM ES T [facility] Results ID Date Data Source [id number] 06/10/2020 09:41:00 AM EST [facility] Name Value Range Interpretation Code Description Data Marisela rce(s) Supporting Document(s) SARS-CoV-2 (COVID 19) NEGATIVE - SARS-CoV-2 (COVID19) [facility] This lab was ordered by [facility] a nd reported by [facility]. ID Date Data Source [id number] 05/24/2020 04:52:00 AM EST [facility] Name Value Range Interpretation Code Description Data Marisela rce(s) Supporting Document(s) SARS coronavirus 2 RNA [Presence] in Res piratory specimen by OCTAVIA with probe detection NEGATIVE [facility] This lab was ordered by [facility] a nd reported by [facility]. ID Date Data Source [id number] 04/06/2020 02:21:00 PM EST MEDENT ([facility]) Name Value Range Interpretation Code Description Data Marisela rce(s) Supporting Document(s) Laboratory test finding (navigational concept) Laboratory test result MEDENT ([facility]) A false negative result may occur [...] pathogens. DISCLAIMER: Testing was performed using the [employer] SARS-CoV-2 test. This test was developed and its performance characteristics determined by [employer]. This test has not been FDA cleared [...] or revoked sooner. ID Date Data Source [id number] 04/06/2020 12:25:00 PM EST [facility] Name Value Range Interpretation Code Description Data Marisela rce(s) Supporting Document(s) Appearance, Urine RFX Laboratory test result [facility] PH,Urine RFX 6.0 units 5.0-9.0 [facility] Specific [place] Ur Auto RFX 1.013 1.002-1.035 [facility] Color, Urine RFX Laboratory test result [facility] [facility] Ketone, Urine Auto RFX Laboratory test result MED[facility] ([facility]) Protein, Urine Auto RFX Laboratory test result [facility] Glucose, Urine (Ua) Auto RFX Laboratory test result [facility] ([facility] Nitrite, Urine Auto RFX Laboratory test result [facility] ([facility] Bilirubin, Urine Auto RFX Laboratory test result [facility] ([facility] Urobilinogen, Urine Auto RFX 4.0 mg/dL 0.0-2.0 [facility] ([facility] Blood, Urine Blood RFX Laboratory test result [facility] ([facility]) Leukocyte Esterase Ur Auto RFX Laboratory test result [facility] ([facility]) WBC, Urine Auto RFX 63 /HPF 0-3 [facility] ([facility]) Squam Epithelial Cell Ur Aurfx 2 /HPF 0-6 [facility] ([facility] Bacteria, Urine Auto RFX Laboratory test result [facility] ([facility] RBC, Urine Auto RFX Laboratory test result 0-3 [facility] ([facility] Hyaline Cast, Urine Auto RFX 0 /LPF 0-1 M EDENT ([facility] Mucus, Urine RFX Laboratory test result [facility] ([facility]) ID Date Data Source [id number] 04/06/2020 11:44:00 AM EST [facility] Name Value Range Interpretation Code Description Data Marisela rce(s) Supporting Document(s) Blood Type Laboratory test result [facility] ([facility] AB Screen (Indirect Venita)Vis Laboratory test result [facility] ([facility]) ID Date Data Source [id number] 04/06/2020 11:44:00 AM EST [facility] ([facility]) Name Value Range Interpretation Code Description Data Marisela rce(s) Supporting Document(s) Lipoprotein lipase [Enzymatic activity/volume] in Serum or Plasm a 45 U/L 73-393 [facility] ([facility] <content>note:<nlbl:demographic_changed> </content>
<content></content> Amylase [Enzymatic activity/volume] in Serum or Plasma 20 U/L 25- 115 [facility] ([facility] <content>note:<nlbl:demographic_changed> </content>
<content></content> ID Date Data Source [id number] 04/06/2020 11:44:00 AM EST [facility] ([facility] Name Value Range Interpretation Code Description Data Marisela rce(s) Supporting Document(s) Glucose, Fasting 115 mg/dL 70-100 [facility] ([facility] Glomerular Filtration Rate [facility] ([facility]) <content>Units are mL/min/1.73 m2</content>
<content></content>
<content>Chronic Kidney Disease Staging per NKF:</content>
<content></content>
<content>Stage I & II GFR >=60 Normal to Mildly Decreased</content>
<content>Stage III GFR 30-59 Moderately Decreased</content>
<content>Stage IV GFR 15-29 Severely Decreased</content>
<content>Stage V GFR <15 Very Little GFR Left</content>
<content>ESRD GFR <15 on LEADING FIREFIGHTER</content>
<content></content> Blood Urea Nitrogen 10 mg/dL 7-18 [facility] ([facility]) Creatinine For GFR 0.96 mg/dL 0.70-1.30 [facility] ([facility]) Potassium Serum 3.8 meq/L 3.5-5.1 [facility] ([facility]) Carbon Dioxide Level 28 meq/L 21-32 [facility] ([facility]) Chloride Level 104 meq/L 98-107 [facility] ([facility]) Sodium Level 138 meq/L 136-145 [facility] ([facility]) Calcium Level 8.1 mg/dL 8.8-10.2 [facility] ([facility]) Anion Gap 6 meq/L 8-16 [facility] ([facility]) ID Date Data Source [id number] 04/06/2020 11:44:00 AM EST [facility] ([facility] Name Value Range Interpretation Code Description Data Marisela rce(s) Supporting Document(s) Ast/Sgot 24 U/L 7-37 [facility] ([facility]) Alt/SGPT 13 U/L 12-78 [facility] ([facility]) Alkaline Phosphatase 133 U/L 45-117 [facility] ([facility]) Bilirubin,Direct 0.4 mg/dL 0.0-0.2 [facility] ([facility]) Bilirubin,Total 0.9 mg/dL 0.2-1.0 [facility] ([facility]) Albumin/Globulin Ratio 0.6 [facility] ([facility]) Total Protein 7.7 GM/DL 6.4-8.2 [facility] ([facility]) Albumin 2.9 GM/DL 3.2-5.2 [facility] ([facility]) ID Date Data Source [id number] 04/06/2020 11:44:00 AM EST [facility] ([facility] Name Value Range Interpretation Code Description Data Marisela rce(s) Supporting Document(s) MB/CK Relative Index 2.78 [facility] ([facility]) <content>DIAGNOSIS CRITERIA</content>
<content>MMB ng/ml Relative Index (RI)</content>
<content>NON-AMI < or = 5 N/A</content>
<content>DWASON ZONE > 5 < or = 4</content>
<content>AMI > 5 > 4</content>
<content></content> CK-MB Value Mass Laboratory test result [facility] ([facility]) CPK Creatine Phosphokinase 36 U/L 39-308 [facility] ([facility]) Troponin I Laboratory test result [facility] ([facility]) <content>Troponin I Reference Interval f or Siemens [place] LOCI:</content>
<content></content>
<content>99th Percentile= 0.00-0.045 ng/ml</content>
<content></content>
<content>Risk Stratification:</content>
<content><= 0.10 ng/ml Decreased Risk for Adverse Clinical</content>
<content>Events.</content>
<content>0.10-1.50 ng/ml Increased Risk for Adverse Clinical</content>
<content>Events. Evaluation of additional</content>
<content>criterion and/or repeat testing in 2-6</content>
<content>hours is suggested to rule out myocardial</content>
<content>damage.</content>
<content>>= 1.50 ng/ml Indicative of Myocardial Injury.</content>
<content></content> ID Date Data Source [id number] 04/06/2020 11:44:00 AM EST [facility] ([facility]) Name Value Range Interpretation Code Description Data Marisela rce(s) Supporting Document(s) White Blood Count 8.7 10 4.0-10.0 [facility] ([facility]) Mean Corpuscular Volume 96.4 fl 80.0-96.0 [facility] ([facility]) Hematocrit 37.8 % 42.0-52.0 [facility] Hemoglobin 11.6 g/dL 13.5-17.5 [facility] Red Blood Count 3.92 10 4.30-6.10 [facility] ([facility]) Red Cell Distribution Width 15.4 % 11.5-14.5 [place] [facility] ([facility]) Mean Corpuscular HGB Conc 30.7 g/dL 32.0-36.5 MEDE NT ([facility]) Mean Corpuscular Hemoglobin 29.6 pg 27.0-33.0 [place] [facility] ([facility]) Lymph % 5.9 % 24.0-44.0 [facility] [place] [facility] Platelet Count, Automated 144 10 150-450 MEDE NT ([facility]) Neutrophils % 86.7 % 36.0-66.0 [facility] ([facility]) Spencer % 6.3 % 0.0-5.0 [facility] [place] [facility]) Eos % 0.2 % 0.0-3.0 [facility] [facility] Baso % 0.2 % 0.0-1.0 [facility] [facility] Immature Granulocyte % 0.7 % 0-3.0 [facility] ([facility]) Neutrophils # 7.6 10 1.5-8.5 [facility] ([facility]) Nucleated Red Blood Cell % 0.0 % 0-0 MED E[facility] ([facility]) Eos # 0.0 10 0.0-0.5 [facility]) Spencer # 0.6 10 0.0-0.8 [facility] [facility] Lymph # 0.5 10 1.5-5.0 [facility] [facility] Baso # 0.0 10 0.0-0.2 [facility] [facility] ID Date Data Source [id number] 04/06/2020 11:17:00 AM EST [facility] ([facility]) Name Value Range Interpretation Code Description Data Marisela rce(s) Supporting Document(s) Lactate [Mass/volume] in Serum or Plasma 2.2 mmol/L 0.4-2.0 Above upper panic limits MED[facility] ([facility]) BACK AND VERIFIED BY ID Date Data Source URINE CULTURE 03/21/2020 12:00:00 AM EST eCW1 ([facility]) Name Value Range Interpretation Code Description Data Marisela rce(s) Supporting Document(s) URINE CULTURE eCW1 ([facility]) ID Date Data Source UA URINALYSIS 03/21/2020 12:00:00 AM EST eCW1 ([facility]) Name Value Range Interpretation Code Description Data Marisela rce(s) Supporting Document(s) UA URINALYSIS eCW1 ([facility]) ID Date Data Source [id number] 01/26/2020 12:04:00 PM EDT MED[facility] ([facility]) Name Value Range Interpretation Code Description Data Marisela rce(s) Supporting Document(s) Urine Color Laboratory test result Abnormal (applies to non-numeric results) [facility] ([facility]) Urine Appearance Laboratory test result Abnormal (applies to non-numeric results) [facility] ([facility]) Specific gravity of Urine 1.020 1.005-1.030 [place] [facility] ([facility]) Urine PH 6.5 units 5.0-9.0 [facility] ([facility]) Urine Blood Laboratory test result Abnormal (applies to non-numeric results) [facility] ([facility]) Urine Protein Laboratory test result 0-0 Abnormal (applies to non-numeric results) [facility] ([facility]) Urine Leukocytes Laboratory test result Abnormal (applies to non-numeric results) [facility] ([facility]) Urine Ketone Laboratory test result MEDE NT ([facility]) Urine Nitrite Laboratory test result Abnormal (applies to non-numeric results) [facility] ([facility]) Glucose [Presence] in Urine Laboratory test result [facility] ([facility]) Urine Urobilinogen Laboratory test result 0.2-1.0 Abnorm al (applies to non- numeric results) [facility] ([facility]) Bilirubin.total [Mass/volume] in Serum or Plasma Laboratory test resu lt MEDENT ([facility]) ID Date Data Source [id number] 01/26/2020 12:04:00 PM EDT [facility] ([facility]) Name Value Range Interpretation Code Description Data Marisela rce(s) Supporting Document(s) Thyrotropin [Units/volume] in Serum or Plasma by Detec tion limit <= 0.05 mIU/L 7.15 uIU/mL 0.36-3.74 [facility] ([facility] ) ID Date Data Source [id number] 01/26/2020 12:04:00 PM EDT [facility] ([facility]) Name Value Range Interpretation Code Description Data Marisela rce(s) Supporting Document(s) Erythrocytes [#/volume] in Blood by Automated count 4.43 x10*6/UL 4.2 0-6.30 [facility] ([facility]) Leukocytes [#/volume] in Blood by Automated count 7.5 x10*3/UL 4.1-10 .9 [facility] ([facility]) MCV 91.0 fL 80.0-97.0 [facility] ([place] [facility]) Hemoglobin [Mass/volume] in Blood 13.8 g/dL 12.0-18.0 [facility] ([facility]) Hematocrit [Volume Fraction] of Blood by Automated count 40.4 % 3 7.0-51.0 [facility] ([facility]) MCH 31.2 pg 26.0-32.0 [facility] ([place] [facility]) MCHC 34.2 g/dL 31.0-38.0 [facility] ([place] [facility]) Erythrocyte distribution width [Ratio] by Automated count 13.1 % 11.6-13.7 [facility] ([facility]) Platelets [#/volume] in Blood by Automated count 190 x10*3/UL 140-440 [facility] ([facility]) Lymph % 17.3 % 10.0-58.5 [facility] ([place] [facility]) MPV 8.5 FL 7.8-11.0 [facility] ([place] [facility]) Mid % 4.4 % 1.7-9.3 [facility] ([place] [facility]) Mid # 0.3 x10*3/UL 0.1-0.6 [facility] ([facility]) Neut % 78.3 % 37.0-92.0 [facility] ([place] [facility]) Lymph # 1.3 x10*3/UL 0.6-4.1 [facility] ([facility]) Neut # 5.9 x10*3/UL 2.0-7.8 [facility] ([facility]) ID Date Data Source [id number] 06/16/2019 11:52:00 AM EST [facility] ([facility]) Name Value Range Interpretation Code Description Data Marisela rce(s) Supporting Document(s) Thyroxine (T4) free [Mass/volume] in Serum or Plasma 1.14 ng/dL 0.76- 1.46 [facility] ([facility]) ID Date Data Source [id number] 06/16/2019 11:52:00 AM EST [facility] ([facility]) Name Value Range Interpretation Code Description Data Marisela rce(s) Supporting Document(s) Thyrotropin [Units/volume] in Serum or Plasma by Detec tion limit <= 0.05 mIU/L 6.30 uIU/mL 0.36-3.74 [facility] ([facility] ) ID Date Data Source [id number] 06/16/2019 11:52:00 AM EST [facility] ([facility]) Name Value Range Interpretation Code Description Data Marisela rce(s) Supporting Document(s) Triglyceride [Mass/volume] in Serum or Plasma 80 mg/dL 30-150 [facility] ([facility]) Cholesterol [Mass/volume] in Serum or Plasma 173 mg/dL 131-200 [facility] ([facility]) Cholesterol in HDL [Mass/volume] in Serum or Plasma 68 mg/dL 35-60 [facility] ([facility]) Cholesterol in LDL [Mass/volume] in Serum or Plasma by calcu lation 89 CALC 50-159 [facility] ([facility]) ID Date Data Source [id number] 06/16/2019 11:52:00 AM EST [facility] ([facility]) Name Value Range Interpretation Code Description Data Marisela rce(s) Supporting Document(s) Urea nitrogen [Mass/volume] in Serum or Plasma 8 mg/dL 7-18 [facility] ([facility]) Glucose [Mass/volume] in Serum or Plasma 95 mg/dL 74-99 [facility] ([facility]) 100-125 mg/dL PRE-DIABETES/FASTING >126 mg/dL DIABETES/FASTING Potassium [Moles/volume] in Serum or Plasma 4.0 meq/L 3.5-5.1 [facility] ([facility]) Creatinine 0.9 mg/dL 0.6-1.3 [facility] ([facility]) Sodium [Moles/volume] in Serum or Plasma 140 meq/L 136-145 [facility] ([facility]) Carbon dioxide, total [Moles/volume] in Serum or Plasma 31 meq/L 21 -32 [facility] ([facility]) Calcium [Mass/volume] in Serum or Plasma 8.8 mg/dL 8.5-10.1 [facility] ([facility]) Chloride [Moles/volume] in Serum or Plasma 103 meq/L 98-107 [facility] ([facility]) Glomerular filtration rate/1.73 sq M pre dicted among non-blacks [Volume Rate/Area] in Serum or Plasma by Creatinine-based formula (MDRD) Laboratory test result [facility] Glomerular filtration rate/1.73 sq M pre dicted among blacks [Volume Rate/Area] in Serum or Plasma by Creatinine-based formula (MDRD) Laboratory test result [facility] ([facility] <content>CHRONIC KIDNEY DISEASE STAGING PER NKF</content>
<content></content>
<content>STAGE I & II GFR >= 60 NORMAL TO MILDLY DECREASED</content>
<content>STAGE III GFR 30-59 MODERATELY DECREASED</content>
<content>STAGE IV GFR 15-29 SEVERELY DECREASED</content>
<content>STAGE V GFR <15 VERY LITTLE GFR LEFT</content>
<content>ESRD GFR <15 ON LEADING FIREFIGHTER</content>
<content></content> ID Date Data Source [id number] 06/16/2019 11:52:00 AM EST [facility] ([facility]) Name Value Range Interpretation Code Description Data Marisela rce(s) Supporting Document(s) Magnesium 1.9 mg/dL 1.8-2.4 [facility] ([facility]) ID Date Data Source [id number] 06/16/2019 11:52:00 AM EST [facility] ([facility]) Name Value Range Interpretation Code Description Data Marisela rce(s) Supporting Document(s) Erythrocytes [#/volume] in Blood by Automated count 4.97 x10*6/UL 4.2 0-6.30 [facility] ([facility]) Leukocytes [#/volume] in Blood by Automated count 6.7 x10*3/UL 4.1-10 .9 [facility] ([facility]) Hemoglobin [Mass/volume] in Blood 15.0 g/dL 12.0-18.0 [facility] ([facility]) Hematocrit [Volume Fraction] of Blood by Automated count 45.7 % 3 7.0-51.0 [facility] ([facility]) MCH 30.2 pg 26.0-32.0 [facility] ([facility]) MCV 91.9 fL 80.0-97.0 [facility] ([facility]) Platelets [#/volume] in Blood by Automated count 165 x10*3/UL 140-440 [facility] ([facility]) Erythrocyte distribution width [Ratio] by Automated count 13.2 % 11.6-13.7 [facility] ([facility]) MCHC 32.9 g/dL 31.0-38.0 [facility] ([facility]) Lymph % 19.8 % 10.0-58.5 [facility] ([facility]) MPV 9.3 FL 7.8-11.0 [facility] ([facility]) Mid % 6.9 % 1.7-9.3 [facility] ([facility]) Lymph # 1.3 x10*3/UL 0.6-4.1 [facility] ([facility]) Mid # 0.5 x10*3/UL 0.1-0.6 [facility] ([facility]) Neut % 73.3 % 37.0-92.0 [facility]) Neut # 4.9 x10*3/UL 2.0-7.8 [facility] ([facility]) ID Date Data Source [id number] 06/10/2019 04:55:00 PM [facility] Name: ALICEVALERIAJULIANO W : 1955 Age/Sex: 64M Ordering Provider: Luis Gold MD Med Rec #: [id number] Reg Status: [facility] Room #: Date of Service: 06/10/19 Report Number: [id number] cc:Luis Gold MD Send Report To: [id number] XRP/XR Hip Rt 1-2 view w AP [...] Date/Time: 06/10/19 1254 Transcribed Date/Time: 06/10/19 1655 [employer] Room Attendant: DENISE Name Value Range Interpretation Code Description Data Marisela rce(s) Supporting Document(s) Procedure Social History Code Duration Value Status Description Data Source(s ) Smoking 03/21/2020 12:00:00 AM EST Former Smoker completed Former Smoker eCW1 ([facility]) Smoking 03/21/2020 12:00:00 AM EST Former Smoker completed Former Smoker eCW1 ([facility]) Smoking 03/21/2020 12:00:00 AM EST Former Smoker completed Former Smoker eCW1 ([facility]) Smoking 03/21/2020 12:00:00 AM EST Former Smoker completed Former Smoker eCW1 ([facility]) Smoking 03/21/2020 12:00:00 AM EST Former Smoker completed Former Smoker eCW1 ([facility]) Alcohol intake 02/15/2020 12:00:00 AM EDT Not Currently completed [facility] Cigarette pack-years 02/15/2020 12:00:00 AM EDT UNK completed [facility] Cigarettes smoked current (pack per day) - Reported 02/15/20 20 12:00:00 AM EDT UNK completed [facility] Smoking 02/15/2020 12:00:00 AM EDT Former smoker completed Former smoker [facility] 01/10/2020 12:00:00 AM EDT Cigarette Smoker completed Cig arette Smoker [facility] 01/10/2020 12:00:00 AM EDT Current smoker completed Curre nt smoker [facility] Vital Signs ID Date Data Source UNK Name Value Range Interpretation Code Description Data Source(s) Body mass index (BMI) [Ratio] 76.64 kg/m2 76.64 kg/m2 [facility] Body weight 190.057 kg 190.057 kg [facility] Body height 157.5 cm 157.5 cm [facility] Diastolic blood pressure 62 mm[Hg] 62 mm[Hg] [facility] Systolic blood pressure 110 mm[Hg] 110 mm[Hg] [facility] Body height 65.25 [in_i] 65.25 [in_i] [facility] 5'5.25" Heart rate 52 /min 52 /min [facility] ([facility]) Diastolic blood pressure 80 mm[Hg] 80 mm[Hg] [facility] ([facility]) LT Arm Systolic blood pressure 110 mm[Hg] 110 [facility] LT Arm Oxygen saturation in Arterial blood by Pulse oximetry 94 % 94 % [facility] ([facility]) Air Body height 65.25 [in_i] 65.25 [in_i] [facility] 5'5.25" Heart rate 97 /min 97 /min [facility] ([facility]) Diastolic blood pressure 70 mm[Hg] 70 mm[Hg] [facility] ([facility]) Systolic blood pressure 112 mm[Hg] 112 [facility]Hg[facility] Diastolic blood pressure 72 mm[Hg] 72 mm[Hg] eCW1 ([facility]) Systolic blood pressure 122 mm[Hg] 122 mm[Hg] e CW1 ([facility]) Body temperature 97.0 [degF] 97.0 [degF] eCW1 ( [facility]) Respiratory rate 20 /min 20 /min eCW1 ([facility]) Heart rate 80 /min 80 /min eCW1 ([facility]) Body mass index (BMI) [Ratio] 69.96 kg/m2 69.96 kg/m2 eCW1 ([facility]) Body height 63 [in_i] 63 [in_i] eCW1 ([facility]) Body weight 395 [lb_av] 395 [lb_av] eCW1 ([facility]) Body mass index (BMI) [Ratio] 62.1 kg/m2 62.1 k g/m2 MEDENT ([facility]) Body weight 376.00 [lb_av] 376.00 [lb_av] MEDEN T ([facility]) Body height 65.25 [in_i] 65.25 [in_i] [facility] ([facility]) 5'5.25" Body mass index (BMI) [Ratio] 66.2 kg/m2 66.2 k g/m2 [facility] ([facility]) Oxygen saturation in Arterial blood by Pulse oximetry 99 % 99 % [facility] ([facility]) RM Air Body weight 401.00 [lb_av] 401.00 [lb_av] MEDEN T ([facility]) Body height 65.25 [in_i] 65.25 [in_i] MED[facility] ([facility]) 5'5.25" Heart rate 87 /min 87 /min MED[facility] ([facility]) Diastolic blood pressure 70 mm[Hg] 70 mm[Hg] [facility] ([facility]) Systolic blood pressure 110 mm[Hg] 110 mm[Hg] M EDENT ([facility]) Body weight 176.450 kg 176.450 kg MEDENT ([facility]) Body mass index (BMI) [Ratio] 64.7 kg/m2 64.7 k g/m2 [facility] ([facility]) Body weight 389.00 [lb_av] 389.00 [lb_av] MEDEN T ([facility]) Body height 65 [in_i] 65 [in_i] [facility] ([facility]) 5'5" Diastolic blood pressure 68 mm[Hg] 68 mm[Hg] [facility] ([facility]) Systolic blood pressure 114 mm[Hg] 114 mm[Hg] [facility]) Body weight 180.533 kg 180.533 kg [facility] ([facility]) Body mass index (BMI) [Ratio] 66.2 kg/m2 66.2 k g/m2 [facility] ([facility]) Body weight 398.00 [lb_av] 398.00 [lb_av] MEDEN T ([facility]) Body height 65 [in_i] 65 [in_i] [facility] ([facility]) 5'5" Diastolic blood pressure 80 mm[Hg] 80 mm[Hg] [facility] ([facility]) Systolic blood pressure 150 mm[Hg] 150 mm[Hg] [facility] ([facility]) Body mass index (BMI) [Ratio] 64.9 kg/m2 64.9 k g/m2 [facility]) Oxygen saturation in Arterial blood by Pulse oximetry 94 % 94 % [facility]) Air Body weight 393.00 [lb_av] 393.00 [lb_av] MEDEN T ([facility]) Body height 65.25 [in_i] 65.25 [in_i] [facility] 5'5.25" Heart rate 78 /min 78 /min [facility] ([facility]) Diastolic blood pressure 64 mm[Hg] 64 mm[Hg] [facility]) Systolic blood pressure 120 mm[Hg] 120 mm[Hg] M EDSUZ[facility]) ID Date Data Source [id number] 06/23/2019 08:55:00 AM EST [facility] Name Value Range Interpretation Code Description Data Source(s) Weight (Calculated Kilograms) 146.96 146.96 [facility] Height (Calculated Centimeters) 165.1 165. 1 [facility] Body Mass Index (BMI) 53.8 53.8 [facility] Patient Treatment Plan of Care Planned Activity Planned Date Details Description Data Source (s) Acetaminophen 06/04/2020 12:00:00 AM EST [facility] ([facility]) Sertraline HCl 100 MG 06/04/2020 12:00:00 AM EST [facility] ([facility]) Xarelto 20 MG 06/04/2020 12:00[facility] Nystatin Powder 06/04/2020 12:00:00 AM EST [facility] ([facility]) Metoprolol Tartrate 50 MG 06/04/2020 12:00:00 AM EST [facility] ([facility]) Furosemide 40 MG 06/04/2020 12:00:00 AM EST [facility] ([facility]) Doxycycline Hyclate 100 MG 06/04/2020 12:00:00 [facility] Sertraline 50 MG Oral Tablet 05/23/2020 12:00:00 AM EST [facility] rivaroxaban 20 MG Oral Tablet 05/23/2020 12:00:00 AM EST [facility] rivaroxaban 20 MG Oral Tablet 03/14/2020 12:00:00 AM EST [facility] Zolpidem tartrate 10 MG Oral Tablet 01/30/2020 12:00:00 AM EDT [facility] Sertraline 50 MG Oral Tablet 01/23/2020 12:00:00 AM EDT [facility]
[2020-06-25 04:38] LABS: INR 1.27; PROTHROMBIN TIME 16.2 SECONDS (12.5-14.3)
[2020-06-25 04:43] LABS: ALBUMIN 2.5 GM/DL (3.2-5.2); ALT/SGPT 14 U/L (12-78); BILIRUBIN,DIRECT 0.5 MG/DL (0.0-0.2); BILIRUBIN,TOTAL 0.9 MG/DL (0.2-1.0); BLOOD UREA NITROGEN 9 MG/DL (7-18); CALCIUM LEVEL 7.5 MG/DL (8.8-10.2); CARBON DIOXIDE LEVEL 25 MEQ/L (21-32); CHLORIDE LEVEL 104 MEQ/L (98-107); CK-MB VALUE MASS 1.1 NG/ML (<3.6); CPK CREATINE PHOSPHOKINASE 45 U/L (39-308); CREATININE FOR GFR 0.81 MG/DL (0.70-1.30); GLOMERULAR FILTRATION RATE > 60.0 (>49); GLUCOSE, FASTING 101 MG/DL (70-100); LIPASE 54 U/L (73-393); MB/CK RELATIVE INDEX 2.44 (< OR =4); POTASSIUM SERUM 4.2 MEQ/L (3.5-5.1); RSV AMPLIFICATION NEGATIVE (NEGATIVE); SODIUM LEVEL 138 MEQ/L (136-145); TOTAL PROTEIN 7.4 GM/DL (6.4-8.2); TROPONIN I < 0.02 NG/ML (< 0.10)
[2020-06-25] MEDS ORDERED: XARE20TA PO (04:55)
--- NOTE | 2020-06-25 06:19 | REPVR ---
PROCEDURE INFORMATION: Exam: XR Right Hip with Pelvis when Performed Exam date and time: 06/25/20 (4:59am) Age: 65 years old Clinical indication: Right hip and pelvic pain. No recent trauma. TECHNIQUE: Imaging protocol: XR Right hip with pelvis when performed Views: 2 or 3 views COMPARISON: Pelvis and hips plain films of 06/17/20 FINDINGS: No acute fracture nor dislocation. S/P left total hip arthroplasty again seen. Soft tissue calcifications again noted lateral to the left acetabular region. Redemonstration of marked, advanced hypertrophic osteoarthritic changes at the right hip. Significant joint space loss. Prominent hypertrophic changes at the right femoral head and neck regions. IMPRESSION: No acute findings. Advanced osteoarthritic changes at the right hip. In general, a similar appearance was noted 8 days ago. Electronically signed by: Brittaney Thomas On 06/25/2020 06:19:50 AM
--- NOTE | 2020-06-25 06:21 | ECGEPIP ---
[facility] - ED Test Date: 2020-06-25 Pat Name: JULIANO JENKINS Department: Room: - Gender: Male [employer]: : 1955 Requested By: ANGEL Torres Order Number: [id number] Reading MD: Elvis Bustos Measurements Intervals [place] Rate: 80 P: 30 NE: 156 QRS: -5 QRSD: 98 T: 29 QT: 392 QTc: 455 Interpretive Statements SINUS RHYTHM LOW QRS VOLTAGE IN PRECORDIAL LEADS POOR R WAVE PROGRESSION POSSIBLE INCOMPLETE RIGHT BUNDLE BRANCH BLOCK NSTTW ABNORMALITY(S) SIMILAR TO 06/10/20 Electronically Signed on 06-25-2020 6:20:54 EST by Elvis Bustos
--- NOTE | 2020-06-25 06:27 | REPVR ---
PROCEDURE INFORMATION: Exam: XR Chest, 1 View Exam date and time: 06/25/20 (5:02am) Age: 65 years old Clinical indication: Cough, failure to thrive TECHNIQUE: Imaging protocol: Frontal CXR Views: 1 view COMPARISON: CT CHEST of 06/10/20 Chest films of 05/24/20 FINDINGS: Comparison is made with chest studies done in 2020. Stable cardiomegaly. Scattered hazy and patchy pulmonary infiltrates again seen -- are seen slightly more prominent at this time, compared to chest films of 05/24/20. No definite pleural effusions. No pneumothorax. IMPRESSION: Persistent bilateral hazy and patchy pulmonary infiltrates, slightly worse at this time, compared to chest films done 4 weeks ago. The findings are compatible with Covid pneumonia, eg. Clinical and laboratory correlation are suggested. Continued follow-up is recommended. Electronically signed by: Brittaney Thomas On 06/25/2020 06:27:34 AM
[2020-06-25] MEDS ORDERED: ZOLO100T PO (06:49)
--- NOTE | 2020-06-25 07:43 | REPVR ---
PROCEDURE INFORMATION: Exam: CT Head Without Contrast Exam date and time: 06/25/2020 7:09 AM Age: 65 years old Clinical indication: Other: Weakness TECHNIQUE: Imaging protocol: Computed tomography of the head without contrast. Radiation optimization: All CT scans at this facility use at least one of these dose optimization techniques: automated exposure control; mA and/or kV adjustment per patient size (includes targeted exams where dose is matched to clinical indication); or iterative reconstruction. COMPARISON: CT Head without contrast 06/10/2020 8:43 AM FINDINGS: Brain: There is no acute intracranial abnormality. Mild prominence of ventricles and sulci representing volume loss. Mild small vessel ischemic changes are seen. There is no mass, midline shift, or mass effect. Yang-white matter differentiation is preserved. There is no evidence of hemorrhage. There is no extra-axial fluid collection. Basal cisterns are patent. Cerebral ventricles: See "Brain" finding. Bones/joints: The visualized osseous structures are unremarkable. Paranasal sinuses: Visualized sinuses are clear. Mastoid air cells: Mastoid air cells are clear. Soft tissues: Unremarkable. IMPRESSION: 1. Mild volume loss and small vessel ischemic changes. . 2. No acute intracranial abnormality given limitation of overlying artifact. Electronically signed by: Vicky Stahl On 06/25/2020 07:43:32 AM
[2020-06-25 07:44] LABS: MAGNESIUM LEVEL 1.9 MG/DL (1.8-2.4); NT-PRO BNP 1107 PG/ML (<125); PHOSPHORUS LEVEL 3.1 MG/DL (2.5-4.9)
--- NOTE | 2020-06-25 07:59 | REPVR ---
PROCEDURE INFORMATION: Exam: CT Chest Without Contrast; Diagnostic Exam date and time: 06/25/2020 7:09 AM Age: 65 years old Clinical indication: Other: Infiltrates TECHNIQUE: Imaging protocol: Diagnostic computed tomography of the chest without contrast. 3D rendering (Not supervised by radiologist): MIP and/or 3D reconstructed images were created by the technologist. Radiation optimization: All CT scans at this facility use at least one of these dose optimization techniques: automated exposure control; mA and/or kV adjustment per patient size (includes targeted exams where dose is matched to clinical indication); or iterative reconstruction. COMPARISON: CT Chest without contrast 06/10/2020 8:43 AM FINDINGS: Lungs: Multiple areas of ground-glass densities /airspace opacities of bilateral lungs progressed from prior study representing multi lobar pneumonia including COVID-19 infection, clinical correlation is recommended. Pleural spaces: Small bilateral pleural effusions. Heart: Cardiomegaly. Small pericardial effusion. Aorta: Unremarkable. No aortic aneurysm. Lymph nodes: Unremarkable. No enlarged lymph nodes. Bones/joints: Unremarkable. No acute fracture. Soft tissues: Unremarkable. IMPRESSION: Multiple areas of ground-glass densities /airspace opacities of bilateral lungs progressed from prior study representing multi lobar pneumonia including COVID-19 infection, clinical correlation is recommended. Small bilateral pleural effusions. Electronically signed by: Vicky Stahl On 06/25/2020 07:59:32 AM
[2020-06-25] MEDS: DOCUSATE SODIUM 100MG CAPSULE PO SCH ×2 (09:00→21:00)
[2020-06-25] MEDS: FUROSEMIDE 40MG/4ML VIAL (J1940) IV SCH ×2 (09:00→16:29)
[2020-06-25] MEDS ORDERED: ACETAMINOPHEN TAB 650MG DOSE (2X325MG) PO PRN (09:30)
[2020-06-25] MEDS ORDERED: NYSTATIN 100,000 UNITS/GM TOPICAL PWD 15 GM TOP PRN (09:30)
--- OUTSIDE RECORDS SUMMARY | 2020-06-25 09:55 | CCD ---
Author Author [facility] Organization [facility] Address Unknown Phone Unavailable Care Team Providers Care Student Advisor Name Role Phone Harley Gurrola MD Unavailable Unavailable Harley Gurrola MD Unavailable Unavailable Harley Gurrola MD Unavailable Unavailable Harley Gurrola MD Unavailable Unavailable Harley Gurrola MD Unavailable Unavailable Harley Gurrola MD Unavailable Unavailable Harley Gurrola MD Unavailable Unavailable Harley Gurrola MD Unavailable Unavailable IzabelaHarley MD Unavailable Unavailable DallasHarley MD Unavailable Unavailable DallasHarley MD Unavailable Unavailable IzabelaHarley MD Unavailable Unavailable DallasHarley MD Unavailable Unavailable DallasHarley MD Unavailable Unavailable IzabelaHarley MD Unavailable Unavailable IzabelaHarley MD Unavailable Unavailable DallasHarley MD Unavailable Unavailable DallasHarley MD Unavailable Unavailable IzabelaHarley MD Unavailable Unavailable IzabelaHarley MD Unavailable Unavailable IzabelaHarley MD Unavailable Unavailable IzabelaHarley MD Unavailable Unavailable IzabelaHarley MD Unavailable Unavailable DallasHarley MD Unavailable Unavailable IzabelaHarley MD Unavailable Unavailable DallasHarley MD Unavailable Unavailable IzabelaHarley MD Unavailable Unavailable DallasHarley MD Unavailable Unavailable IzabelaHarley MD Unavailable Unavailable IzabelaHarley MD Unavailable Unavailable IzabelaHarley MD Unavailable Unavailable DallasHarley MD Unavailable Unavailable IzabelaHarley MD Unavailable Unavailable DallasHarley MD Unavailable Unavailable DallasHarley MD Unavailable Unavailable IzabelaHarley MD Unavailable Unavailable IzabelaHarley MD Unavailable Unavailable IzabelaHarley MD Unavailable Unavailable DallasHarley MD Unavailable Unavailable IzabelaHarley MD Unavailable Unavailable IzabelaHarley MD Unavailable Unavailable IzabelaHarley MD Unavailable Unavailable DallasHarley MD Unavailable Unavailable IzabelaHarley tate MD Unavailable Unavailable DallasHarley MD Unavailable Unavailable DallasHarley MD Unavailable Unavailable IzabelaHarley MD Unavailable Unavailable IzabelaHarley MD Unavailable Unavailable DallasHarley MD Unavailable Unavailable DallasHarley MD Unavailable Unavailable IzabelaHarley tate MD Unavailable Unavailable IzabelaHarley MD Unavailable Unavailable IzabelaHarley MD Unavailable Unavailable IzabelaHarley MD Unavailable Unavailable IzabelaHarley MD Unavailable Unavailable DallasHarley MD Unavailable Unavailable DallasHarley MD Unavailable Unavailable IzabelaHarley MD Unavailable Unavailable IzabelaHarley MD Unavailable Unavailable DallasHarley MD Unavailable Unavailable IzabelaHarley MD Unavailable Unavailable DallasHarley MD Unavailable Unavailable IzabelaHarley MD Unavailable Unavailable DallasHarley MD Unavailable Unavailable IzabelaHarley MD Unavailable Unavailable IzabelaHarley MD Unavailable Unavailable IzabelaHarley MD Unavailable Unavailable IzabelaHarley MD Unavailable Unavailable DallasHarley MD Unavailable Unavailable IzabelaHarley MD Unavailable Unavailable DallasHarley MD Unavailable Unavailable IzabelaHarley MD Unavailable Unavailable IzabelaHarley MD Unavailable Unavailable DallasHarley MD Unavailable Unavailable IzabelaHarley MD Unavailable Unavailable IzabelaHarley MD Unavailable Unavailable IzabelaHarley MD Unavailable Unavailable Dallas F Lanre FIERRO Unavailable Unavailable DallasHarley MD Unavailable Unavailable Izabela F Lanre FIERRO Unavailable Unavailable Dallas F Lanre FIERRO Unavailable Unavailable Dallas F Lanre FIERRO Unavailable Unavailable IzabelaHarley MD Unavailable Unavailable IzabelaHarley MD Unavailable Unavailable DallasHarley MD Unavailable Unavailable IzabelaHarley MD Unavailable Unavailable [...] Nataliia Segura MD Unavailable Unavailable Brock, Jeannette FASHION MARKETER Unavailable Unavailable Brock, Jeannette FASHION MARKETER Unavailable Unavailable Brock, Jeannette FASHION MARKETER Unavailable Unavailable Brock, Jeannette FASHION MARKETER Unavailable Unavailable Brock, Jeannette FASHION MARKETER Unavailable Unavailable Brock, Jeannette FASHION MARKETER Unavailable Unavailable Brock, Jeannette FASHION MARKETER Unavailable Unavailable Brock, Jeannette FASHION MARKETER Unavailable Unavailable Brock, Jeannette FASHION MARKETER Unavailable Unavailable Brock, Jeannette FASHION MARKETER Unavailable Unavailable Brock, Jeannette FASHION MARKETER Unavailable Unavailable Brock, Jeannette FASHION MARKETER Unavailable Unavailable Brock, Jeannette FASHION MARKETER Unavailable Unavailable Brock, Jeannette FASHION MARKETER Unavailable Unavailable Brock, Jeannette FASHION MARKETER Unavailable Unavailable Brock, Jeannette FASHION MARKETER Unavailable Unavailable Borck, Jeannette FASHION MARKETER Unavailable Unavailable Brock, Jeannette FASHION MARKETER Unavailable Unavailable Brock, Jeannette FASHION MARKETER Unavailable Unavailable Brock, Jeannette FASHION MARKETER Unavailable Unavailable Brock, Jeannette FASHION MARKETER Unavailable Unavailable Brock, Jeannette FASHION MARKETER Unavailable Unavailable Brock, Jeannette FASHION MARKETER Unavailable Unavailable Brock, Jeannette FASHION MARKETER Unavailable Unavailable Brock, Jeannette FASHION MARKETER Unavailable Unavailable Brock, Jeannette FASHION MARKETER Unavailable Unavailable Brock, Jeannette FASHION MARKETER Unavailable Unavailable PICKERAL JR, J MARIAH PA-C [...] J MARIAH PA-C Unavailable Unavailable Ancelmo, Tiffany FASHION MARKETER Unavailable Unavailable Ancelmo, Tiffany FASHION MARKETER Unavailable Unavailable Ancelmo, Tiffany FASHION MARKETER Unavailable Unavailable Ancelmo, Tiffany FASHION MARKETER Unavailable Unavailable Ancelmo, Tiffany FASHION MARKETER Unavailable Unavailable Ancelmo, Tiffany FASHION MARKETER Unavailable Unavailable Ancelmo, Tiffany FASHION MARKETER Unavailable Unavailable Ancelmo, Tiffany FASHION MARKETER Unavailable Unavailable Ancelmo, Tiffany FASHION MARKETER Unavailable Unavailable Ancelmo, Tiffany FASHION MARKETER Unavailable Unavailable Ancelmo, Tiffany FASHION MARKETER Unavailable Unavailable Ancelmo, Tiffany FASHION MARKETER Unavailable Unavailable Ancelmo, Tiffany FASHION MARKETER Unavailable Unavailable Ancelmo, Tiffany FASHION MARKETER Unavailable Unavailable Ancelmo, Tiffany FASHION MARKETER Unavailable Unavailable Ancelmo, Tiffany FASHION MARKETER Unavailable Unavailable Ancelmo, Tiffany FASHION MARKETER Unavailable Unavailable Ancelmo, Tiffany FASHION MARKETER Unavailable Unavailable Ancelmo, Tiffany FASHION MARKETER Unavailable Unavailable Ancelmo, Tiffany FASHION MARKETER Unavailable Unavailable Ancelmo, Tiffany FASHION MARKETER Unavailable Unavailable Ancelmo, Tiffany FASHION MARKETER Unavailable Unavailable Ancelmo, Tiffany FASHION MARKETER Unavailable Unavailable Ancelmo, Tiffany FASHION MARKETER Unavailable Unavailable Ancelmo, Tiffany FASHION MARKETER Unavailable Unavailable Ancelmo, Tiffany FASHION MARKETER Unavailable Unavailable Ancelmo, Tiffany FASHION MARKETER Unavailable Unavailable Ancelmo, Tiffany FASHION MARKETER Unavailable Unavailable Ancelmo, Tiffany FASHION MARKETER Unavailable Unavailable Ancelmo, Tiffany FASHION MARKETER Unavailable Unavailable Ancelmo, Tiffany FASHION MARKETER Unavailable Unavailable Ancelmo, Tiffany FASHION MARKETER Unavailable Unavailable Ancelmo, Tiffany FASHION MARKETER Unavailable Unavailable Ancelmo, Tiffany FASHION MARKETER Unavailable Unavailable Ancelmo, Tiffany FASHION MARKETER Unavailable Unavailable Ancelmo, Tiffany FASHION MARKETER Unavailable Unavailable Ancelmo, Tiffany FASHION MARKETER Unavailable Unavailable Ancelmo, Tiffany FASHION MARKETER Unavailable Unavailable Ancelmo, Tiffany FASHION MARKETER Unavailable Unavailable Ancelmo, Tiffany FASHION MARKETER Unavailable Unavailable Ancelmo, Tiffany FASHION MARKETER Unavailable Unavailable Ancelmo, Tiffany FASHION MARKETER Unavailable Unavailable Ancelmo, Tiffany FASHION MARKETER Unavailable Unavailable Ancelmo, Tiffany FASHION MARKETER Unavailable Unavailable Ancelmo, Tiffany FASHION MARKETER Unavailable Unavailable Ancelmo, Tiffany FASHION MARKETER Unavailable Unavailable Ancelmo, Tiffany FASHION MARKETER Unavailable Unavailable Ancelmo, Tiffany FASHION MARKETER Unavailable Unavailable Ancelmo, Tiffany FASHION MARKETER Unavailable Unavailable Ancelmo, Tiffany FASHION MARKETER Unavailable Unavailable Ancelmo, Tiffany FASHION MARKETER Unavailable Unavailable Ancelmo, Tiffany FASHION MARKETER Unavailable Unavailable Ancelmo, Tiffany FASHION MARKETER Unavailable Unavailable Sumner, V EAGLE PA-C Unavailable Unavailable Leroy, V EAGLE PA-C Unavailable Unavailable Leroy, V EAGLE PA-C Unavailable Unavailable Sumner, V EAGLE PA-C Unavailable Unavailable Leroy, V [...] is protected by Article 27-F of the [facility] Public Health law. If you continue you may have access to information: Regarding HIV / AIDS; Provided by facilities licensed or operated by the [facility] Office of Mental Health; or Provided by the [facility] Office for People With Developmental Disabilities. If such information is present, then the following [facility] mandated warning applies: This information has been [...] law may result in a fine or group home sentence or both. A general authorization for the release of medical or other information is NOT sufficient authorization for further disc losure. Allergies and Adverse Reactions Type Description Substance Reaction Status Data Source(s ) No Known Drug Allergies No Known Drug Allergies No Known Drug Aller gies active NETSMART ([facility] ) Family History Family Member Name Family Member Gender Family Member Status Date o f Status Description Data Source(s) Unknown Male Problem MEDENT ([facility], ) Encounters Encounter Providers Location Date Indications Data Source(s ) 06/04/2020 12:00:00 AM EST - 021 02:38:14 PM EST NETSMART ([facility]) Outpatient Attender: EAGLE TURNERCReferrer: Arturo CARROLL.AMBER.VIC 05/23/2020 12:00:00 AM EST [facility] Outpatient Attender: Jeannette Stein 01:40:00 PM EST MEDENT ([facility] ) Unknown [address] [facility] [address] 04/24/2020 12:00:00 AM EST eCW1 ([facility]) Outpatient Attender: MARIAH Stein 1 05/30/2019 01:00:00 PM EST MEDENT ([facility] ) Unknown [address] [facility] [address] 03/28/2020 12:00:00 AM EST eCW1 ([facility]) Unknown [address] [facility] [address] 03/23/2020 12:00:00 AM EST eCW1 ([facility]) Unknown [address] [facility] [address] 03/23/2020 12:00:00 AM EST eCW1 ([facility]) Outpatient [address] [facility] [address] 03/21/2020 12:00:00 AM EST eCW1 ([facility]) Outpatient Attender: MARIAH Stein 1 02:00:00 PM EDT MEDENT ([facility] ) Outpatient Attender: Lucila CARROLL.VIC-SJCassandra.VIC 11/2019 12:00:00 AM EDT - 02/15/2020 01:50:37 PM EDT [facility] Outpatient Attender: MARIAH Stein 0 01/26/2020 11:20:00 AM EDT MEDENT ([facility] ) Outpatient Attender: Tiffany DOVERP Izabela Stein 0 10/20/2019 02:00:00 PM EDT MEDENT ([facility] ) Outpatient 07/12/2019 03:15:00 PM EST [facility] Outpatient Attender: Gia Stein 10:00:00 AM EST MEDENT ([facility] ) Outpatient Attender: Luis Gold MD CPSCAORT-CPSCAORT 11:20:00 AM EST - 06/10/2019 11:21:00 AM EST [facility] Patient discharged. Immunizations [...] AM EST 1.0 {tablet} completed NETSMART ( [facility]) Acetaminophen Acetaminophen 06/04/2020 12:00:00 AM EST 500.0 {mg } completed NETSMART ([facility]) Furosemide 40 MG Furosemide 06/04/2020 12:00:00 AM EST 0 {tablet } completed NETSMART ([facility]) Metoprolol Tartrate 50 MG Metoprolol Tartrate 06/04/2020 12:00:00 A M EST 0 {tablet} completed [facility]SMART ([facility]) Nystatin Powder Nystatin Powder 06/04/2020 12:00:00 AM EST 15.0 {gm} completed NETSMART ([facility]) Xarelto 20 MG Xarelto 06/04/2020 12:00:00 AM EST 1.0 {tablet} completed NETSMART ([facility]) Doxycycline Hyclate 100 MG Doxycycline Hyclate 06/04/2020 12:00:00 AM EST 0 {tablet} completed [facility]SMART ([facility]) Sertraline 50 MG Oral Tablet sertraline (ZOLOFT) 50 MG tablet sertraline (ZOLOFT) 50 MG tablet 05/23/2020 12:00:00 AM EST 50 mg Oral active Take 1 tablet (50 mg total) by mouth daily [facility] rivaroxaban 20 MG Oral Tablet rivaroxaban (XARELTO) 20 MG TABS rivaroxaban (XARELTO) 20 MG TABS 05/23/2020 12:00:00 AM EST 20 mg Oral active Take 1 tablet (20 mg total) by mouth daily [facility] Administration Of Flu Vaccine 03/30/2020 12:00:00 [...] tablet (20 mg total) by mouth daily [facility] 24 HR metoprolol succinate 50 MG [...] EDT 10 mg a ctive 10 mg [facility] NITROFURANTOIN, MACROCRYSTALS 100 MG Oral Capsule Nitrofuran toin Macrocrystal 01/26/2020 12:00:00 AM EDT ORAL completed MEDENT ([facility]) Sertraline 50 MG Oral Tablet sertraline (ZOLOFT) 50 MG tablet sertraline (ZOLOFT) 50 MG tablet 01/23/2020 12:00:00 AM EDT 50 mg Oral aborted Take 50 mg by mouth daily [facility] 50 mg 06/17/2019 12:00:00 AM EST [...] to mitchell Policy Mitchell Plan Information WELLCARE [id number] SP [id number] MEDICARE C [id number] S [id number] MEDICARE [id number] SP [id number] WELLCARE MEDICARE [id number] 24 [id number] WELLCARE MEDICARE [id number] Cara 18 [id number] MEDICARE [id number] SP [id number] A MEDICARE [id number] SP [id number] [id number] MEDICARE [id number] SP [id number] A WELLCARE O [id number] S [id number] WELLCARE [id number] SP [id number] WELLCARE [id number] Other [id number] Wellcare Health Plans evly Commercial [id number] Self [id number] Wellcare/Todays Optmcr Commercial [id number] Self [id number] [email or web address] Health Plans evly Commercial [id number] Self [id number] MEDICARE A [id number] Self [id number] A WELLCARE [id number] SP [id number] Wellcare/Todays Optmcr Commercial [id number] Self [id number] Wellcare Today's Options Commercial [id number] Self [id number] TODAYS OPTIONS [id number] SP [id number] Disrupt6 [id number] Self [id number] Disrupt6 [id number] Self [id number] Disrupt6 [id number] Self [id number] TODAYS OPTIONS [id number] SP [id number] Disrupt6 [id number] Self [id number] Todays Option Commercial [id number] Self [id number] Medicare Part A [place] Medicare Primary [id number] Self [id number] MEDICARE PART A-O/P [id number] 18 [id number] [place] [id number] 18 [id number] [facility] [id number] 18 [id number] TODAYS OPTION -RECURRING [id number] CIGNA HE[employer] -RECURRING [id number] 18 [id number] [employer] HE[employer] -RECURRING [id number] 18 [id number] TODAYS OPTION -RECURRING [id number] 18 [id number] MEDICARE -O/P [id number] 18 [id number] MEDICARE [id number] SP [id number] A MEDICARE C [id number] S [id number] A MEDICARE PART A-CLINIC [id number] 18 [id number] MEDICARE OUTPATIENT M [id number] S [id number] WELLCARE HLTH PLANS O [id number] S [id number] UNAVAILABLE UNAVAILA BLE Problems, Conditions, and Diagnoses Code Display Name Description Problem Type Effective Dates Data Source(s) Z46.6 Encounter for fitting and adjustment of urinary device Encounter for fitting and adjustment of urinary device Problem 06/04/2020 12:00:00 AM EST NETSMART ([facility]) 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 rough castings (current) use of anticoagulants Problem 06/04/2020 12:00:00 AM EST NETSMART ([facility]) Z91.81 History of falling History of falling Problem 12:00:00 AM EST NETSMART ([facility]) Z87.891 Personal history of nicotine dependence Personal history of nicotine dependence Problem 06/04/2020 12:00:00 AM EST NETSMART ([facility]) Z68.44 Body mass index [BMI] 60.0-69.9, adult B beata mass index [BMI] 60.0-69.9, adult Problem 06/04/2020 12:00:00 AM EST NETSMART ([facility]) Z96.642 Presence of left artificial hip joint Pr esence of left artificial hip joint Problem 06/04/2020 12:00:00 AM EST NETSMART ([facility]) J18.9 Pneumonia, unspecified organism Pneumonia, unspecified organism Problem 06/04/2020 12:00:00 AM EST NETSMART ([facility] ) N20.0 Calculus of kidney Calculus of kidney Problem 12:00:00 AM EST NETSMART ([facility]) R33.8 Other retention of urine Other retention of urine Prob chele 06/04/2020 12:00:00 AM EST NETSMART ([facility] ) R29.6 Repeated falls Repeated falls Problem 06/04/2020 12:00: 00 AM EST NETSMART ([facility]) I48.91 Unspecified atrial fibrillation Unspecified atrial fib rillation Problem 06/04/2020 12:00:00 AM EST NETSMART ([facility] ) I50.32 Chronic diastolic (congestive) heart cain lure Chronic diastolic (congestive) heart failure Problem 06/04/2020 12:00:00 AM EST NETSMA RT ([facility]) K59.04 Chronic idiopathic constipation Chronic idiopathic con stipation Problem 06/04/2020 12:00:00 AM EST NETSMART ([facility] ) K57.30 Diverticulosis of large inte miah without perforation or abscess without bleeding Diverticulosis of large intestine withou t perforation or abscess without bleeding Problem 06/04/2020 12:00:00 AM EST NETSMART ([facility]) K43.9 Ventral hernia without obstruction or ga ngrene Ventral hernia without obstruction or gangrene Problem 06/04/2020 12:00:00 AM EST NETSMART ([facility]) M47.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, lumbar region Spondylosis without myelopathy or radiculopathy, lumbar region Problem 06/04/2020 12:00:00 AM EST NETSMART ([facility] ) M16.11 Unilateral primary osteoarthritis, right hip Unilateral primary osteoarthritis, right hip Problem 06/04/2020 12:00:00 AM EST NETSMAR T ([facility]) G47.00 Insomnia, unspecified Insomnia, unspecified Problem 06/04/2020 12:00:00 AM EST NETSMART ([facility] ) G47.33 Obstructive sleep apnea (adult) (pediatr ic) Obstructive sleep apnea (adult) (pediatric) Problem 06/04/2020 12:00:00 AM EST NETSMART ([facility]) E66.01 Morbid (severe) obesity due to excess ca lories Morbid (severe) obesity due to excess calories Problem 06/04/2020 12:00:00 AM EST NETSMART ( [facility]) 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 Problem 03/21/2020 12:00:00 AM EST eCW1 ([facility]) E66.01 Morbid obesity Morbid obesity [id number] 02/15/2020 12:00: 00 AM EDT [facility] I48.19 Persistent atrial fibrillation Persistent atrial fibri llation [id number] 02/15/2020 12:00:00 AM EDT [facility] I48.19 Other persistent atrial fibrillation Oth er persistent atrial fibrillation Diagnosis 02/15/2020 01:01:44 PM EDT [facility] E66.01 Morbid (severe) obesity due to excess ca lories MORBID (SEVERE) OBESITY DUE TO EXCESS CALORIES Diagnosis 06/10/2019 11:20:00 AM [facility] Z96.642 Presence of left artificial hip joint [place] ESENCE OF LEFT ARTIFICIAL HIP JOINT Diagnosis 06/10/2019 11:20:00 AM [facility] M16.11 Unilateral primary osteoarthritis, right hip UNILATERAL PRIMARY OSTEOARTHRITIS, RIGHT HIP Diagnosis 06/10/2019 11:20:00 AM [facility] M25.551 Pain in right hip PAIN IN RIGHT HIP Diagnosis 06/10 11:20:00 AM [facility] Surgeries/Procedures Procedure Description Date Indications Data Source(s) POCT AMB EKG POCT AMB EKG Routine 05/23/2020 5:28 PM EST Persistent atrial fibrillation 05/23/2020 10:28:00 PM EST Pe rsistent atrial fibrillation [facility] Persistent atrial fibrillation ECG ROUTINE ECG W/LEAST 12 LDS W/I&R 01/26/2020 12:00: 00 AM EDT [facility] outpatient clinic visit for assessment and ma nagement of a patient Hospital Outpatient Clinic Visit 06/10/2019 12:00:00 AM [facility] [address] X-RAY EXAM HIP UNI 2-3 VIEWS 06/10/2019 12:00:00 AM ES T [facility] Results ID Date Data Source [id number] 06/10/2020 09:41:00 AM EST [facility] Name Value Range Interpretation Code Description Data Marisela rce(s) Supporting Document(s) SARS-CoV-2 (COVID 19) NEGATIVE - SARS-CoV-2 (COVID19) [facility] This lab was ordered by [facility] a nd reported by [facility]. ID Date Data Source [id number] 05/24/2020 04:52:00 AM EST [facility] Name Value Range Interpretation Code Description Data Marisela rce(s) Supporting Document(s) SARS coronavirus 2 RNA [Presence] in Res piratory specimen by OCTAVIA with probe detection NEGATIVE [facility] This lab was ordered by [facility] a nd reported by [facility]. ID Date Data Source [id number] 04/06/2020 02:21:00 PM EST MEDENT ([facility]) Name Value Range Interpretation Code Description Data Marisela rce(s) Supporting Document(s) Laboratory test finding (navigational concept) Laboratory test result MEDENT ([facility]) A false negative result may occur [...] pathogens. DISCLAIMER: Testing was performed using the [employer] SARS-CoV-2 test. This test was developed and its performance characteristics determined by [employer]. This test has not been FDA cleared [...] or revoked sooner. ID Date Data Source [id number] 04/06/2020 12:25:00 PM EST MEDENT [facility] Name Value Range Interpretation Code Description Data Marisela rce(s) Supporting Document(s) Appearance, Urine RFX Laboratory test result [facility]) PH,Urine RFX 6.0 units 5.0-9.0 [facility] Specific [place] Ur Auto RFX 1.013 1.002-1.035 [facility] Color, Urine RFX Laboratory test result [facility]) Ketone, Urine Auto RFX Laboratory test result MEDENT ([facility]) Protein, Urine Auto RFX Laboratory test result [facility]) Glucose, Urine (Ua) Auto RFX Laboratory test result [facility]) Nitrite, Urine Auto RFX Laboratory test result [facility]) Bilirubin, Urine Auto RFX Laboratory test result [facility]) Urobilinogen, Urine Auto RFX 4.0 mg/dL 0.0-2.0 [facility]) Blood, Urine Blood RFX Laboratory test result MEDENT ([facility]) Leukocyte Esterase Ur Auto RFX Laboratory test result [facility]) WBC, Urine Auto RFX 63 /HPF 0-3 MEDENT ([facility]) Squam Epithelial Cell Ur Aurfx 2 /HPF 0-6 [facility] Bacteria, Urine Auto RFX Laboratory test result [facility]) RBC, Urine Auto RFX Laboratory test result 0-3 [facility] ([facility]) Hyaline Cast, Urine Auto RFX 0 /LPF 0-1 M EDENT ([facility]) Mucus, Urine RFX Laboratory test result [facility]) ID Date Data Source [id number] 04/06/2020 11:44:00 AM [facility] Name Value Range Interpretation Code Description Data Marisela rce(s) Supporting Document(s) Blood Type Laboratory test result [facility] AB Screen (Indirect Venita)Vis Laboratory test result [facility] ([facility]) ID Date Data Source [id number] 04/06/2020 11:44:00 AM EST [facility] ([facility]) Name Value Range Interpretation Code Description Data Marisela rce(s) Supporting Document(s) Lipoprotein lipase [Enzymatic activity/volume] in Serum or Plasm a 45 U/L 73-393 [facility] <content>note:<nlbl:demographic_changed> </content>
<content></content> Amylase [Enzymatic activity/volume] in Serum or Plasma 20 U/L 25- 115 [facility] <content>note:<nlbl:demographic_changed> </content>
<content></content> ID Date Data Source [id number] 04/06/2020 11:44:00 AM EST [facility] Name Value Range Interpretation Code Description Data Marisela rce(s) Supporting Document(s) Glucose, Fasting 115 mg/dL 70-100 [facility]omerular Filtration [facility] <content>Units are mL/min/1.73 m2</content>
<content></content>
<content>Chronic Kidney Disease Staging per NKF:</content>
<content></content>
<content>Stage I & II GFR >=60 Normal to Mildly Decreased</content>
<content>Stage III GFR 30-59 Moderately Decreased</content>
<content>Stage IV GFR 15-29 Severely Decreased</content>
<content>Stage V GFR <15 Very Little GFR Left</content>
<content>ESRD GFR <15 on MARKETING ADMIN</content>
<content></content> Blood Urea Nitrogen 10 mg/dL 7-18 [facility] ([facility]) Creatinine For GFR 0.96 mg/dL 0.70-1.30 [facility] ([facility]) Potassium Serum 3.8 meq/L 3.5-5.1 [facility] ([facility]) Carbon Dioxide Level 28 meq/L 21-32 [facility] ([facility]) Chloride Level 104 meq/L 98-107 [facility] ([facility]) Sodium Level 138 meq/L 136-145 [facility] ([facility]) Calcium Level 8.1 mg/dL 8.8-10.2 [facility] ([facility]) Anion Gap 6 meq/L 8-16 [facility] ([facility]) ID Date Data Source [id number] 04/06/2020 11:44:00 AM EST [facility] Name Value Range Interpretation Code Description Data Marisela rce(s) Supporting Document(s) Ast/Sgot 24 U/L 7-37 [facility] ([facility]) Alt/SGPT 13 U/L 12-78 [facility] ([facility]) Alkaline Phosphatase 133 U/L 45-117 [facility] ([facility]) Bilirubin,Direct 0.4 mg/dL 0.0-0.2 [facility] ([facility]) Bilirubin,Total 0.9 mg/dL 0.2-1.0 [facility] ([facility]) Albumin/Globulin Ratio 0.6 [facility] ([facility]) Total Protein 7.7 GM/DL 6.4-8.2 [facility] ([facility]) Albumin 2.9 GM/DL 3.2-5.2 [facility] ([facility]) ID Date Data Source [id number] 04/06/2020 11:44:00 AM EST [facility] ([facility] Name Value Range Interpretation Code Description Data Marisela rce(s) Supporting Document(s) MB/CK Relative Index 2.78 [facility] ([facility]) <content>DIAGNOSIS CRITERIA</content>
<content>MMB ng/ml Relative Index (RI)</content>
<content>NON-AMI < or = 5 N/A</content>
<content>DAWSON ZONE > 5 < or = 4</content>
<content>AMI > 5 > 4</content>
<content></content> CK-MB Value Mass Laboratory test result [facility] ([facility]) CPK Creatine Phosphokinase 36 U/L 39-308 [facility] ([facility]) Troponin I Laboratory test result [facility] ([facility]) <content>Troponin I Reference Interval f or Siemens Hazel LOCI:</content>
<content></content>
<content>99th Percentile= 0.00-0.045 ng/ml</content>
<content></content>
<content>Risk Stratification:</content>
<content><= 0.10 ng/ml Decreased Risk for Adverse Clinical</content>
<content>Events.</content>
<content>0.10-1.50 ng/ml Increased Risk for Adverse Clinical</content>
<content>Events. Evaluation of additional</content>
<content>criterion and/or repeat testing in 2-6</content>
<content>hours is suggested to rule out myocardial</content>
<content>damage.</content>
<content>>= 1.50 ng/ml Indicative of Myocardial Injury.</content>
<content></content> ID Date Data Source [id number] 04/06/2020 11:44:00 AM EST [facility] ([facility]) Name Value Range Interpretation Code Description Data Marisela rce(s) Supporting Document(s) White Blood Count 8.7 10 4.0-10.0 [facility] ([facility]) Mean Corpuscular Volume 96.4 fl 80.0-96.0 [facility] ([facility]) Hematocrit 37.8 % 42.0-52.0 [facility] Hemoglobin 11.6 g/dL 13.5-17.5 [facility] Red Blood Count 3.92 10 4.30-6.10 [facility] ([facility]) Red Cell Distribution Width 15.4 % 11.5-14.5 IA [facility] ([facility]) Mean Corpuscular HGB Conc 30.7 g/dL 32.0-36.5 MEDE NT ([facility]) Mean Corpuscular Hemoglobin 29.6 pg 27.0-33.0 [facility] ([facility]) Lymph % 5.9 % 24.0-44.0 [facility] Platelet Count, Automated 144 10 150-450 MEDE NT ([facility]) Neutrophils % 86.7 % 36.0-66.0 [facility] ([facility]) [place] % 6.3 % 0.0-5.0 [facility]) Eos % 0.2 % 0.0-3.0 [facility] Baso % 0.2 % 0.0-1.0 [facility] Immature Granulocyte % 0.7 % 0-3.0 [facility] ([facility]) Neutrophils # 7.6 10 1.5-8.5 [facility] ([facility]) Nucleated Red Blood Cell % 0.0 % 0-0 MED ENT ([facility]) Eos # 0.0 10 0.0-0.5 [facility]) [place] # 0.6 10 0.0-0.8 [facility] Lymph # 0.5 10 1.5-5.0 [facility] Baso # 0.0 10 0.0-0.2 [facility] ID Date Data Source [id number] 04/06/2020 11:17:00 AM EST [facility] ([facility]) Name Value Range Interpretation Code Description Data Marisela rce(s) Supporting Document(s) Lactate [Mass/volume] in Serum or Plasma 2.2 mmol/L 0.4-2.0 Above upper panic limits [facility] ([facility]) BACK AND VERIFIED BY ID Date Data Source URINE CULTURE 03/21/2020 12:00:00 AM EST eCW1 ([facility]) Name Value Range Interpretation Code Description Data Marisela rce(s) Supporting Document(s) URINE CULTURE eCW1 ([facility]) ID Date Data Source UA URINALYSIS 03/21/2020 12:00:00 AM EST eCW1 ([facility]) Name Value Range Interpretation Code Description Data Marisela rce(s) Supporting Document(s) UA URINALYSIS eCW1 ([facility]) ID Date Data Source [id number] 01/26/2020 12:04:00 PM EDT [facility] ([facility]) Name Value Range Interpretation Code Description Data Marisela rce(s) Supporting Document(s) Urine Color Laboratory test result Abnormal (applies to non-numeric results) [facility] ([facility]) Urine Appearance Laboratory test result Abnormal (applies to non-numeric results) [facility] ([facility]) Specific gravity of Urine 1.020 1.005-1.030 IA DENT ([facility]) Urine PH 6.5 units 5.0-9.0 [facility]) Urine Blood Laboratory test result Abnormal (applies to non-numeric results) [facility] ([facility]) Urine Protein Laboratory test result 0-0 Abnormal (applies to non-numeric results) [facility] ([facility]) Urine Leukocytes Laboratory test result Abnormal (applies to non-numeric results) [facility] ([facility]) Urine Ketone Laboratory test result MEDE NT ([facility]) Urine Nitrite Laboratory test result Abnormal (applies to non-numeric results) [facility] ([facility]) Glucose [Presence] in Urine Laboratory test result [facility] ([facility]) Urine Urobilinogen Laboratory test result 0.2-1.0 Abnorm al (applies to non- numeric results) [facility] ([facility]) Bilirubin.total [Mass/volume] in Serum or Plasma Laboratory test resu lt [facility] ([facility]) ID Date Data Source [id number] 01/26/2020 12:04:00 PM EDT [facility] Name Value Range Interpretation Code Description Data Marisela rce(s) Supporting Document(s) Thyrotropin [Units/volume] in Serum or Plasma by Detec tion limit <= 0.05 mIU/L 7.15 uIU/mL 0.36-3.74 [facility] ) ID Date Data Source [id number] 01/26/2020 12:04:00 PM EDT [facility] ([facility]) Name Value Range Interpretation Code Description Data Marisela rce(s) Supporting Document(s) Erythrocytes [#/volume] in Blood by Automated count 4.43 x10*6/UL 4.2 0-6.30 [facility] ([facility]) Leukocytes [#/volume] in Blood by Automated count 7.5 x10*3/UL 4.1-10 .9 [facility] ([facility]) MCV 91.0 fL 80.0-97.0 [facility]) Hemoglobin [Mass/volume] in Blood 13.8 g/dL 12.0-18.0 [facility] ([facility]) Hematocrit [Volume Fraction] of Blood by Automated count 40.4 % 3 7.0-51.0 [facility] ([facility]) MCH 31.2 pg 26.0-32.0 [facility] ([facility]) MCHC 34.2 g/dL 31.0-38.0 [facility] ([facility]) Erythrocyte distribution width [Ratio] by Automated count 13.1 % 11.6-13.7 [facility] ([facility]) Platelets [#/volume] in Blood by Automated count 190 x10*3/UL 140-440 [facility] ([facility]) Lymph % 17.3 % 10.0-58.5 [facility] ([facility]) MPV 8.5 FL 7.8-11.0 [facility] ([facility]) Mid % 4.4 % 1.7-9.3 [facility] ([facility]) Mid # 0.3 x10*3/UL 0.1-0.6 [facility] ([facility]) Neut % 78.3 % 37.0-92.0 [facility] ([facility]) Lymph # 1.3 x10*3/UL 0.6-4.1 [facility] ([facility]) Neut # 5.9 x10*3/UL 2.0-7.8 [facility] ([facility]) ID Date Data Source [id number] 06/16/2019 11:52:00 AM EST [facility] ([facility]) Name Value Range Interpretation Code Description Data Marisela rce(s) Supporting Document(s) Thyroxine (T4) free [Mass/volume] in Serum or Plasma 1.14 ng/dL 0.76- 1.46 [facility] ([facility]) ID Date Data Source [id number] 06/16/2019 11:52:00 AM EST [facility] ([facility]) Name Value Range Interpretation Code Description Data Marisela rce(s) Supporting Document(s) Thyrotropin [Units/volume] in Serum or Plasma by Detec tion limit <= 0.05 mIU/L 6.30 uIU/mL 0.36-3.74 [facility] ([facility] ) ID Date Data Source [id number] 06/16/2019 11:52:00 AM EST [facility] ([facility]) Name Value Range Interpretation Code Description Data Marisela rce(s) Supporting Document(s) Triglyceride [Mass/volume] in Serum or Plasma 80 mg/dL 30-150 [facility] ([facility]) Cholesterol [Mass/volume] in Serum or Plasma 173 mg/dL 131-200 [facility] ([facility]) Cholesterol in HDL [Mass/volume] in Serum or Plasma 68 mg/dL 35-60 [facility] ([facility]) Cholesterol in LDL [Mass/volume] in Serum or Plasma by calcu lation 89 CALC 50-159 [facility] ([facility]) ID Date Data Source [id number] 06/16/2019 11:52:00 AM EST [facility] ([facility]) Name Value Range Interpretation Code Description Data Marisela rce(s) Supporting Document(s) Urea nitrogen [Mass/volume] in Serum or Plasma 8 mg/dL 7-18 [facility] ([facility]) Glucose [Mass/volume] in Serum or Plasma 95 mg/dL 74-99 [facility] ([facility]) 100-125 mg/dL PRE-DIABETES/FASTING >126 mg/dL DIABETES/FASTING Potassium [Moles/volume] in Serum or Plasma 4.0 meq/L 3.5-5.1 [facility] ([facility]) Creatinine 0.9 mg/dL 0.6-1.3 [facility] Sodium [Moles/volume] in Serum or Plasma 140 meq/L 136-145 [facility] ([facility]) Carbon dioxide, total [Moles/volume] in Serum or Plasma 31 meq/L 21 -32 [facility] ([facility]) Calcium [Mass/volume] in Serum or Plasma 8.8 mg/dL 8.5-10.1 [facility] ([facility]) Chloride [Moles/volume] in Serum or Plasma 103 meq/L 98-107 [facility] ([facility]) Glomerular filtration rate/1.73 sq M pre dicted among non-blacks [Volume Rate/Area] in Serum or Plasma by Creatinine-based formula (MDRD) Laboratory test result [facility] Glomerular filtration rate/1.73 sq M pre dicted among blacks [Volume Rate/Area] in Serum or Plasma by Creatinine-based formula (MDRD) Laboratory test result [facility] ([facility] <content>CHRONIC KIDNEY DISEASE STAGING PER NKF</content>
<content></content>
<content>STAGE I & II GFR >= 60 NORMAL TO MILDLY DECREASED</content>
<content>STAGE III GFR 30-59 MODERATELY DECREASED</content>
<content>STAGE IV GFR 15-29 SEVERELY DECREASED</content>
<content>STAGE V GFR <15 VERY LITTLE GFR LEFT</content>
<content>ESRD GFR <15 ON MARKETING ADMIN</content>
<content></content> ID Date Data Source [id number] 06/16/2019 11:52:00 AM EST [facility] ([facility]) Name Value Range Interpretation Code Description Data Marisela rce(s) Supporting Document(s) Magnesium 1.9 mg/dL 1.8-2.4 [facility]) ID Date Data Source [id number] 06/16/2019 11:52:00 AM EST [facility] ([facility]) Name Value Range Interpretation Code Description Data Marisela rce(s) Supporting Document(s) Erythrocytes [#/volume] in Blood by Automated count 4.97 x10*6/UL 4.2 0-6.30 [facility] ([facility]) Leukocytes [#/volume] in Blood by Automated count 6.7 x10*3/UL 4.1-10 .9 [facility] ([facility]) Hemoglobin [Mass/volume] in Blood 15.0 g/dL 12.0-18.0 [facility] ([facility]) Hematocrit [Volume Fraction] of Blood by Automated count 45.7 % 3 7.0-51.0 [facility] ([facility]) MCH 30.2 pg 26.0-32.0 [facility]) MCV 91.9 fL 80.0-97.0 [facility]) Platelets [#/volume] in Blood by Automated count 165 x10*3/UL 140-440 [facility] ([facility]) Erythrocyte distribution width [Ratio] by Automated count 13.2 % 11.6-13.7 [facility] ([facility]) MCHC 32.9 g/dL 31.0-38.0 [facility]) Lymph % 19.8 % 10.0-58.5 [facility]) MPV 9.3 FL 7.8-11.0 [facility]) Mid % 6.9 % 1.7-9.3 [facility]) Lymph # 1.3 x10*3/UL 0.6-4.1 [facility] ([facility]) Mid # 0.5 x10*3/UL 0.1-0.6 [facility] ([facility]) Neut % 73.3 % 37.0-92.0 [facility]) Neut # 4.9 x10*3/UL 2.0-7.8 [facility] ([facility]) ID Date Data Source [id number] 06/10/2019 04:55:00 PM [facility] Name: ALICEVALERIAJULIANO W : 1955 Age/Sex: 64M Ordering Provider: Luis Gold MD Med Rec #: [id number] Reg Status: [facility] Room #: Date of Service: 06/10/19 Report Number: [id number] cc:Luis Gold MD Send Report To: [id number] XRP/XR Hip Rt 1-2 view w AP [...] Date/Time: 06/10/19 1254 Transcribed Date/Time: 06/10/19 1655 [employer] Operator: DENISE Name Value Range Interpretation Code Description Data Marisela rce(s) Supporting Document(s) Procedure Social History Code Duration Value Status Description Data Source(s ) Smoking 03/21/2020 12:00:00 AM EST Former Smoker completed Former Smoker eCW1 ([facility]) Smoking 03/21/2020 12:00:00 AM EST Former Smoker completed Former Smoker eCW1 ([facility]) Smoking 03/21/2020 12:00:00 AM EST Former Smoker completed Former Smoker eCW1 ([facility]) Smoking 03/21/2020 12:00:00 AM EST Former Smoker completed Former Smoker eCW1 ([facility]) Smoking 03/21/2020 12:00:00 AM EST Former Smoker completed Former Smoker eCW1 ([facility]) Alcohol intake 02/15/2020 12:00:00 AM EDT Not Currently completed [facility] Cigarette pack-years 02/15/2020 12:00:00 AM EDT UNK completed [facility] Cigarettes smoked current (pack per day) - Reported 02/15/20 20 12:00:00 AM EDT UNK completed [facility] Smoking 02/15/2020 12:00:00 AM EDT Former smoker completed Former smoker [facility] 01/10/2020 12:00:00 AM EDT Cigarette Smoker completed Cig arette Smoker [facility] 01/10/2020 12:00:00 AM EDT Current smoker completed Curre nt smoker [facility] Vital Signs ID Date Data Source UNK Name Value Range Interpretation Code Description Data Source(s) Body mass index (BMI) [Ratio] 76.64 kg/m2 76.64 kg/m2 [facility] Body weight 190.057 kg 190.057 kg [facility] Body height 157.5 cm 157.5 cm [facility] Diastolic blood pressure 62 mm[Hg] 62 mm[Hg] [facility] Systolic blood pressure 110 mm[Hg] 110 mm[Hg] S [facility] Body height 65.25 [in_i] 65.25 [in_i] [facility] 5'5.25" Heart rate 52 /min 52 /min [facility] ([facility]) Diastolic blood pressure 80 mm[Hg] 80 mm[Hg] [facility] ([facility]) LT Arm Systolic blood pressure 110 mm[Hg] 110 mm[Hg] [facility] LT Arm Oxygen saturation in Arterial blood by Pulse oximetry 94 % 94 % [facility] ([facility]) Air Body height 65.25 [in_i] 65.25 [in_i] [facility] 5'5.25" Heart rate 97 /min 97 /min [facility] ([facility]) Diastolic blood pressure 70 mm[Hg] 70 mm[Hg] [facility] ([facility]) Systolic blood pressure 112 mm[Hg] 112 mm[Hg] [facility] Diastolic blood pressure 72 mm[Hg] 72 mm[Hg] eCW1 ([facility]) Systolic blood pressure 122 mm[Hg] 122 mm[Hg] e CW1 ([facility]) Body temperature 97.0 [degF] 97.0 [degF] eCW1 ( [facility]) Respiratory rate 20 /min 20 /min eCW1 ([facility]) Heart rate 80 /min 80 /min eCW1 ([facility]) Body mass index (BMI) [Ratio] 69.96 kg/m2 69.96 kg/m2 eCW1 ([facility]) Body height 63 [in_i] 63 [in_i] eCW1 ([facility]) Body weight 395 [lb_av] 395 [lb_av] eCW1 ([facility]) Body mass index (BMI) [Ratio] 62.1 kg/m2 62.1 k g/m2 [facility] ([facility]) Body weight 376.00 [lb_av] 376.00 [lb_av] MEDEN T ([facility]) Body height 65.25 [in_i] 65.25 [in_i] [facility] ([facility]) 5'5.25" Body mass index (BMI) [Ratio] 66.2 kg/m2 66.2 k g/m2 [facility] ([facility]) Oxygen saturation in Arterial blood by Pulse oximetry 99 % 99 % [facility] ([facility]) RM Air Body weight 401.00 [lb_av] 401.00 [lb_av] MEDEN T ([facility]) Body height 65.25 [in_i] 65.25 [in_i] [facility] ([facility]) 5'5.25" Heart rate 87 /min 87 /min [facility] ([facility]) Diastolic blood pressure 70 mm[Hg] 70 mm[Hg] [facility] ([facility]) Systolic blood pressure 110 mm[Hg] 110 mm[Hg] M EDENT ([facility]) Body weight 176.450 kg 176.450 kg [facility] ([facility]) Body mass index (BMI) [Ratio] 64.7 kg/m2 64.7 k g/m2 [facility] ([facility]) Body weight 389.00 [lb_av] 389.00 [lb_av] MEDEN T ([facility]) Body height 65 [in_i] 65 [in_i] [facility] ([facility]) 5'5" Diastolic blood pressure 68 mm[Hg] 68 mm[Hg] [facility] ([facility]) Systolic blood pressure 114 mm[Hg] 114 mm[Hg] [facility]) Body weight 180.533 kg 180.533 kg [facility] ([facility]) Body mass index (BMI) [Ratio] 66.2 kg/m2 66.2 k g/m2 [facility] ([facility]) Body weight 398.00 [lb_av] 398.00 [lb_av] MEDEN T ([facility]) Body height 65 [in_i] 65 [in_i] [facility] ([facility]) 5'5" Diastolic blood pressure 80 mm[Hg] 80 mm[Hg] [facility] ([facility]) Systolic blood pressure 150 mm[Hg] 150 mm[Hg] [facility] ([facility]) Body mass index (BMI) [Ratio] 64.9 kg/m2 64.9 k g/m2 [facility] Oxygen saturation in Arterial blood by Pulse oximetry 94 % 94 % [facility] Air Body weight 393.00 [lb_av] 393.00 [lb_av] MEDEN T ([facility]) Body height 65.25 [in_i] 65.25 [in_i] [facility]) 5'5.25" Heart rate 78 /min 78 /min [facility] ([facility]) Diastolic blood pressure 64 mm[Hg] 64 mm[Hg] [facility]) Systolic blood pressure 120 mm[Hg] 120 mm[Hg] M [facility]) ID Date Data Source [id number] 06/23/2019 08:55:[address] [facility] Name Value Range Interpretation Code Description Data Source(s) Weight (Calculated Kilograms) 146.96 146.96 [facility] Height (Calculated Centimeters) 165.1 165. 1 [facility] Body Mass Index (BMI) 53.8 53.8 [facility] Patient Treatment Plan of Care Planned Activity Planned Date Details Description Data Source (s) Acetaminophen 06/04/2020 12:00:00 AM EST [facility] ([facility]) Sertraline HCl 100 MG 06/04/2020 12:00:00 AM EST [facility] ([facility]) Xarelto 20 MG 06/04/2020 12:00:00 [facility] Nystatin Powder 06/04/2020 12:00:00 AM EST [facility] ([facility]) Metoprolol Tartrate 50 MG 06/04/2020 12:00:00 AM EST [facility] ([facility]) Furosemide 40 MG 06/04/2020 12:00:00 AM EST [facility] ([facility]) Doxycycline Hyclate 100 MG 06/04/2020 12:00:00 AM [facility] Sertraline 50 MG Oral Tablet 05/23/2020 12:00:00 AM EST [facility] rivaroxaban 20 MG Oral Tablet 05/23/2020 12:00:00 AM EST [facility] rivaroxaban 20 MG Oral Tablet 03/14/2020 12:00:00 AM EST [facility] Zolpidem tartrate 10 MG Oral Tablet 01/30/2020 12:00:00 AM EDT [facility] Sertraline 50 MG Oral Tablet 01/23/2020 12:00:00 AM EDT [facility]
[2020-06-25 10:48] LABS: ABG BASE EXCESS 1.7 (-2.0-2.0); ABG HCO3 24.7 MEQ/L (22.0-26.0); ABG O2 SATURATION 97.2 % (95.0-99.0); ABG PARTIAL PRESSURE CO2 33.1 mmHg (35.0-45.0); ABG PARTIAL PRESSURE O2 83.1 mmHg (75.0-100.0); ABG TOTAL CO2 25.7 MEQ/L (23.0-31.0)
--- NOTE | 2020-06-25 11:05 | HPEPDOC ---
General Date of Admission 06/25/2020 Date of Service: Jun 25, 2020 Attending Physician: PHILIP SULLIVAN MD Chief Complaint The patient is a 65-year-old male admitted with a reason for visit of hip pain. Source: Patient, Old records Exam Limitations: Clinical conditions, Physical impairment, Garbled speech Timing/Duration: Unsure Severity: Moderate Associated Symptoms: Denies Symptoms History of Present Illness Pt is a 65YO M who presents today with right hip pain. He was recently discharged from the hospital on June 14, 2020 due to multiple medical problems including gross hematuria, metabolic encephalopathy, UTI, bilateral pneumonia, atrial fibrillation, lower extremity lymphedema, fungal infection, depression, Stage II decubitus ulcers, and morbid obesity. Upon admission, pt and pt's chronic indwelling Crowell catheter (indication unknown at this time) was covered in dry feces. ER team cleaned pt and changed Crowell catheter. Pt's baseline mental status is unknown, and history was difficult to elicit. He was repeatedly asking for food, and denied chest pain, shortness of breath, nausea, vomiting, diarrhea, or constipation. Pt reports living at home with his girlfriend and her son. He reports a prior left hip repair and states that he would like an intervention for his right hip pain. ER staff state that he calls EMS multiple times to help with moving in his chair at home. Pt states that he is not in acute distress at this time, but would like food. Pt's CT chest was showed slight worsening of ground-glass opacities from discharge from last admission. Home Medications Scheduled Furosemide (Furosemide) 40 Mg Tablet, 40 MG PO DAILY, (Reported) Metoprolol Succinate (Metoprolol Succinate) 50 Mg Tab.er.24h, 50 MG PO QHS, (Reported) Sertraline Hcl (Zoloft) 100 Mg Tablet, 100 MG PO QHS, (Reported) Scheduled PRN Nystatin (Nystatin Powder) 15 Gm Powder, 1 DOSE TOP TID PRN for RASH, (Reported) APPLY TO STOMACH FOLDS AND UNDERARMS Allergies Coded Allergies: No Known Allergies (Verified , 07/12/07) Past Medical History Medical History Atrial fibrillation, not currently on Xarelto (re: Hematuria) CHF on Diuretics Depression on Sertraline Morbid obesity LE lymphedema, chronic venous stasis PVD Anemia Insomnia Stage II decubitus ulcers on buttocks Possible undiagnosed underlying NETTE Surgical History Left hip replacement hernia repair cholecystectomy appendectomy Family History Significant Family History: Unable to assess Reviewed and noncontributory Social History * Smoker: former Smoker, quit less than 1 year (quit 01/2020 according to prior records) Alcohol: Denies (according to prior records) Drugs: other (history of recreational drug use according to prior records.) Psychosocial History: Decreased mood, Depression Pt lives at home with girlfriend and her son. Difficult to obtain history due to altered mental status and garbled speech. According to prior records, pt is seen by Dr. Leach and has been a smoker for 46 years, quit last year. He denied alcohol or illicit drug use on 06/10/2020. He uses a walker at baseline according to that note by Dr. Charlie Sanchez. Upon history today, pt stated that he sits in his recliner for most of the day. And that he does not receive additional medical care for daily activities. A-FIB/CHADSVASC A-FIB History Current/History of A-Fib/PAF?: Yes Current PO Anticoag Therapy: Yes Age/Risk Factor Scoring CHADSVASC: CHADSVASC Response (Comments) Value Age Risk Factor Age < 65 years old 0 Gender Risk Factor Male 0 Hx of CHF Yes 1 Hx of HTN No 0 Hx of Stroke/TIA/or VTE No 0 Hx of Diabetes No 0 Hx of Vascular Disease Yes 1 Total 2 Treatment Treatment ordered: Other (Lovenox) Other anticoagulant ordered: Lovenox Reason Anticoagulant not given: Other (Pt's normal xarelto dose unknown, started on Lovenox) Other reason anticoagulant not: Pt is on Lovenox. Review of Systems Constitutional: Denies: Chills, Fever, Malaise, Night Sweats, Weakness, Fatigue, Weight Loss, Lethargy, Other Pulmonary: Denies: Dyspnea, Cough, Pleuritic Chest Pain, Other Symptoms Cardiovascular: Denies: Chest Pain, Palpitations, Orthopnea, Paroxysmal Noc. Dyspnea, Edema, Lt Headedness, Other Symptoms Gastrointestinal: Denies: Nausea, Vomiting, Abdominal Pain, Diarrhea, Constipation, Melena, Hematochezia, Other Symptoms Genitourinary: Denies: Dysuria, Frequency, Incontinence, Hematuria, Retention, Other Symptoms Physical Examination General Exam: Positive: Alert, Cooperative, Moderate Distress Eye Exam: Positive: PERRLA, Conjunctiva & lids normal, EOMI ENT Exam: Positive: Atraumatic, Mucous membr. moist/pink, Other ENT (exhibits dystonia of the tongue with tardive dyskinesia-like licking of the lips, pt is a mouth breather and this contributes to his unclear speech, however he denies SOB and his vital signs remain stable during examination); Negative: Nares Patent Neck Exam: Negative: JVD Chest Exam: Positive: Clear to auscultation, Diminished, Other (consistent with obesity hypoventilation syndrome); Negative: Wheezing Heart Exam: Positive: Rate Normal, Irregular Rhythm, Normal S1, Normal S2; Negative: Gallops, Murmurs, Rubs Abdomen Exam: Positive: Soft, Other (distended abdomen with central abdominal hernia, panniculitis); Negative: Tenderness Extremity Exam: Positive: Edema (edema from feet to chest; appears to be chronic ), Swelling (bilateral lower extremity edema with chronic venous stasis hyperpigmentation bilateral lower extremities to knees.), Other (lesion on right knee consistent with panniculitis); Negative: Normal pulses (difficult to palpate pedal pulses due to edema), Tenderness Skin Exam: Positive: Breakdown (consistent with PVD with chronic venous stasis bilaterally), Other skin issue (onycholysis present bilateral toenails) Neuro Exam: Positive: Normal Tone, Sensation Intact; Negative: Normal Speech (possibly baseline garbled speech) Psych Exam: Positive: Other (altered mental status, oriented to place and person, not to time.); Negative: Oriented x 3 Vital Signs Vital Signs Date Time Temp Pulse Resp B/P (MAP) Pulse Ox O2 Delivery O2 Flow Rate FiO2 06/25/20 09:30 83 28 98 Room Air 06/25/20 08:07 152/75 (100) 06/25/20 03:44 98.6 Laboratory Data Labs 24H Laboratory Tests 2 06/25/20 03:58: Immature Granulocyte % (Auto) 1.7, Neutrophils (%) (Auto) 75.0H, Lymphocytes (%) (Auto) 10.8L, Monocytes (%) (Auto) 8.5H, Eosinophils (%) (Auto) 3.4H, Basophils (%) (Auto) 0.6, Neutrophils # (Auto) 8.9H, Lymphocytes # (Auto) 1.3L, Monocytes # (Auto) 1.0H, Eosinophils # (Auto) 0.4, Basophils # (Auto) 0.1, Nucleated Red Blood Cells % (auto) 0.0, Prothrombin Time 16.2H, Prothromb Time International Ratio 1.27, Activated Partial Thromboplast Time 41.0H, Urine Color ARNOLD, Urine Appearance CLOUDYH, Urine pH 6.0, Urine Specific [place] 1.023, Urine Protein 3+H, Urine Glucose (UA) NEGATIVE, Urine Ketones TRACEH, Urine Blood 3+H, Urine Nitrite NEGATIVE, Urine Bilirubin NEGATIVE, Urine Urobilinogen 0.2, Urine Leukocyte Esterase 3+H, Urine WBC (Auto) TNTCH, Urine RBC (Auto) TNTCH, Urine Hyaline Casts (Auto) 0, Urine Bacteria (Auto) 1+H, Urine Squamous Epithelial Cells 2, Urine Transitional Epithelial Cells 2, Urine Mucus (Auto) LARGE, Urine Yeast-Like Cells (Auto) SMALLH, Urine Sperm (Auto) , Anion Gap 9, Glomerular Filtration Rate > 60.0, Lactic Acid Level 1.9, Calcium Level 7.5L, Phosphorus Level 3.1, Magnesium Level 1.9, Total Bilirubin 0.9, Direct Bilirubin 0.5H, Aspartate Amino Transf (AST/SGOT) 22, Alanine Aminotransferase (ALT/SGPT) 14, Alkaline Phosphatase 187H, Total Creatine Kinase 45, Creatine Kinase MB 1.1, Creatine Kinase MB Relative Index 2.44, Troponin I < 0.02, II-Gzc-H-Type Natriuretic Peptide 1107H, Total Protein 7.4, Albumin 2.5L, Albumin/Globulin R atio 0.5, Lipase 54L, Coronavirus (COVID-19)(PCR) NEGATIVE, Influenza Type A (RT-PCR) NEGATIVE, Influenza Type B (RT-PCR) NEGATIVE, Respiratory Syncytial Virus (PCR) NEGATIVE CBC/BMP Laboratory Tests 06/25/20 03:58 Microbiology Microbiology 06/25/20 Blood Culture, Received Pending 06/25/20 Blood Culture, Received Pending 06/25/20 Urine Culture, Received Pending Assessment/Plan #Altered mental status / Acute metabolic encephalopathy - likely 2/2 infection, possibly 2/2 baseline - Pt's baseline mental status is unknown, however pt is not oriented to time upon exam. He is oriented to person and place. - Physical without focal deficit - CT head negative - Pt has a history of hepatic steatosis found on ultrasound. - Will hold sertraline due to tardive dyskinesia-like tics of face (frequent lic jose de jesus of the lips). - ABG and ammonia levels have been ordered to explore etiology. #Possibly decompensated CHF exacerbation: - pt has pitting edema +2 from feet to chest. - He is on Furosemide on home. - BNP elevated - ECHO 01/2020: Low/normal LV systolic function (EF 50%) / Diastolic function not evaluated (re: a.fib) - Imaging with evidence of pleural effusions / cephalization - Will check ECHO / Tele monitoring / Troponin trend / Fluid restriction - Started Lasix 40mg IV BID with holding parameters, SBP <110. Pt is placed on a sodium restricted, 2g diet at this time. Paroxysmal atrial fibrillation: - Continue Metoprolol succinate with holding parameters SBP<110 and HR<60. - EKG reveals normal sinus rhythm currently - Xarelto was discontinued as an outpatient for hematuria. - Pt's rhythm will be continuously monitored via telemetry, he is currently in NSR. - Follows with Dr. Leach #Possibly underlying NETTE: - pt has been placed on NETTE protocol for possible need for nocturnal oxygen. Leukocytosis - possibly 2/2 UTI, complicated with indwelling Crowell - Pt's last hospitalization was due to UTI at which time he was treated with ceftriaxone - Pt has a chronic indwelling catheter that was covered in feces on admission. - Pt's vital signs are currently stable and he is afebrile, however, due to positive urinalysis, - Urine culture is pending. - ceftriaxone has been started. #Recovering from pneumonia: - Pt's CT chest showed ground glass opacities consistent with recovering from pneumonia. - Since readings compared to his recent hospitalization show some worsening, this may be due to CHF exacerbation. - Respiratory panel negative - Pt has been started on IV Lasix at this time. #Lymphedema: - Pt has chronic lower extremity edema evident with chronic venous stasis. - He has been placed on a sodium-restricted diet and given compressive stockings. #Prevention of intertriginous fungal infection: - Pt has multiple intertriginous areas susceptible to fungal infections. Continue home medication: nystatin powder. DVT Prophylaxis - Will start Heparin SQ Plan / VTE VTE Prophylaxis Ordered?: Yes (Lovenox 7500) Plan Diet: Continue Current Activity: Continue Current GME ATTESTATION My faculty preceptor for this patient encounter was physically present during the encounter and was fully available. All aspects of the patient interview, examination, medical decision making process, and medical care plan development were reviewed and approved by the faculty preceptor. The faculty preceptor is aware and concurs with the plan as stated in the body of this note and will attest to such by his/her cosignature. GME ATTESTATION GME ATTESTATION My faculty preceptor for this patient encounter was physically present during the encounter and was fully available. All aspects of the patient interview, examination, medical decision making process, and medical care plan development were reviewed and approved by the faculty preceptor. The faculty preceptor is aware and concurs with the plan as stated in the body of this note and will attest to such by his/her cosignature. ATTENDING NOTE I, Philip Sullivan, have independently examined this patient and performed my own physical exam, as well as reviewed the documentation and edited where necessary. I have discussed in detail with the resident / student the findings and plan of treatment as documented by the resident / student and edited their note. I agree with their findings and treatment plan and have edited their documentation. I will continue to follow the patient during this hospital stay. Alli Hahn DO Jun 25, 2020 10:51 PHILIP SULLIVAN MD Jun 25, 2020 12:22
[2020-06-25 11:19] VITALS: BP 116/76
[2020-06-25 11:20] LABS: CK-MB VALUE MASS < 1.0 NG/ML (<3.6); CPK CREATINE PHOSPHOKINASE 52 U/L (39-308); MB/CK RELATIVE INDEX 1.92 (< OR =4); TROPONIN I < 0.02 NG/ML (< 0.10)
[2020-06-25] MEDS: cefTRIAXone SOD 1 GM in D5W MINI-BAG PLUS 50 ML IV SCH (13:23)
[2020-06-25] MEDS: HEPARIN SOD (PORCINE) 5000UNITS/ML 1ML VIAL/SYRINGE SQ SCH ×2 (13:24→21:14)
[2020-06-25 14:00] VITALS: BP 117/74
[2020-06-25 16:34] LABS: CK-MB VALUE MASS 1.1 NG/ML (<3.6); CPK CREATINE PHOSPHOKINASE 60 U/L (39-308); MB/CK RELATIVE INDEX 1.83 (< OR =4); TROPONIN I < 0.02 NG/ML (< 0.10)
--- NOTE | 2020-06-25 18:00 | IPNPDOC ---
Text Note Date of Service The patient was seen on 06/25/20. NOTE Interval update: Called by nursing staff who wanted me to be aware of the patient's jerking motions of his extremities and facial twitches, which to them have subjectively appeared to have increased - I have come to evaluate the patient at the bedside - Patient is hemodynamically stable, no tachycardia, respiratory rate appropriate, saturating well on room air - Patient is oriented to person, place and not to time; this remains unchanged from admission - After discussion with the patient, he does decrease the movement of his extremities with directing, but his facial twitches continue - Patient's jerking motions and clinical picture appear to be at baseline from admission - I have called and discussed with patient's fianc and sister; Mirna Tidwell and Judy Caba - at the numbers listed on the medical record - They have reported that patient's movement of extremities and facial twitches including tongue movements have been a consistent problem for the last 2 months - I have updated the family with the current care plan, and addressed all their questions and concerns Candice PETERSON, I+O VSCandice, I+O Laboratory Tests 06/25/20 03:58 Vital Signs Date Time Temp Pulse Resp B/P (MAP) Pulse Ox O2 Delivery O2 Flow Rate FiO2 06/25/20 14:00 98.3 85 20 117/74 (88) 94 Room Air SHADY GONZALES MD Jun 25, 2020 18:00
[2020-06-25] MEDS: METOPROLOL SUCC (TopROL XL) 50MG **XL** TAB PO SCH (21:14)
[2020-06-25 22:00] VITALS: BP 117/76
[2020-06-26 06:00] VITALS: BP 107/81
[2020-06-26] MEDS: HEPARIN SOD (PORCINE) 5000UNITS/ML 1ML VIAL/SYRINGE SQ SCH ×3 (06:17→21:01)
[2020-06-26 07:47] LABS: BASO # 0.1 10^3/uL (0.0-0.2); BASO % 0.4 % (0.0-1.0); EOS # 0.4 10^3/uL (0.0-0.5); EOS % 3.4 % (0.0-3.0); HEMOGLOBIN 9.8 g/dl (13.5-17.5); LYMPH # 1.2 10^3/uL (1.5-5.0); LYMPH % 10.6 % (24.0-44.0); MEAN CORPUSCULAR HEMOGLOBIN 28.8 pg (27.0-33.0); MEAN CORPUSCULAR HGB CONC 30.6 g/dl (32.0-36.5); MEAN CORPUSCULAR VOLUME 94.1 fl (80.0-96.0); MONO % 9.1 % (2.0-8.0); NEUTROPHILS # 8.5 10^3/uL (1.5-8.5); NEUTROPHILS % 75.2 % (36.0-66.0); PLATELET COUNT, AUTOMATED 147 10^3/uL (150-450); WHITE BLOOD COUNT 11.3 10^3/uL (4.0-10.0)
[2020-06-26 08:04] LABS: BLOOD UREA NITROGEN 11 MG/DL (7-18); CALCIUM LEVEL 7.8 MG/DL (8.8-10.2); CARBON DIOXIDE LEVEL 30 MEQ/L (21-32); CHLORIDE LEVEL 104 MEQ/L (98-107); CREATININE FOR GFR 0.82 MG/DL (0.70-1.30); GLOMERULAR FILTRATION RATE > 60.0 (>49); GLUCOSE, FASTING 93 MG/DL (70-100); MAGNESIUM LEVEL 2.1 MG/DL (1.8-2.4); SODIUM LEVEL 142 MEQ/L (136-145)
[2020-06-26 08:36] LABS: AMPHETAMINES LEVEL URINE NEGATIVE (NEGATIVE); BARBITURATES URINE NEGATIVE (NEGATIVE); BENZODIAZEPINES URINE NEGATIVE (NEGATIVE); CANNABINOIDS URINE NEGATIVE (NEGATIVE); COCAINE METABOLITE URINE NEGATIVE (NEGATIVE); METHADONE URINE NEGATIVE (NEGATIVE); OPIATES URINE NEGATIVE (NEGATIVE); PHENCYCLIDINE URINE NEGATIVE (NEGATIVE)
[2020-06-26] MEDS: DOCUSATE SODIUM 100MG CAPSULE PO SCH ×2 (09:00→21:01)
[2020-06-26] MEDS: FUROSEMIDE 40MG/4ML VIAL (J1940) IV SCH ×2 (09:00→17:21)
[2020-06-26 09:09] VITALS: BP 102/69
[2020-06-26] MEDS: cefTRIAXone SOD 1 GM in D5W MINI-BAG PLUS 50 ML IV SCH (12:22)
[2020-06-26 14:00] VITALS: BP 105/66
[2020-06-26] MEDS: DIMETHICONE 2% OINTMENT(VANICREAM) 70GM TUBE TOP SCH ×2 (14:52→21:02)
--- NOTE | 2020-06-26 15:02 | IPNPDOC ---
Subjective Date Seen The patient was seen on 06/26/20. Subjective Chief Complaint/HPI Pt is a 65YO M who presents today with right hip pain. He was recently discharged from the hospital on June 14, 2020 due to multiple medical p roblems including gross hematuria, metabolic encephalopathy, UTI, bilateral pneumonia, atrial fibrillation, lower extremity lymphedema, fungal infection, depression, Stage II decubitus ulcers, and morbid obesity. Pt continues to be difficult to understand, so full ROS was unobtainable. However, he states that he is eating and drinking okay. He often asks the nurses for fluids, but is on a fluid restriction due to CHF exacerbation presentation. Pt's right hip x-ray did not show any changes from the xray done ~1 week ago and still shows some osteoarthritic changes. Nursing staff does not report any overnight events, however states that the pt's urine has a strong odor. Urine is darker in color today and urinary output has decreased today. 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 Pt and nursing staff report no new concerns at this time. Pt is awaiting placement since he cannot care for himself. General: Reports: ROS Unobtainable GME ATTESTATION My faculty preceptor for this patient encounter was physically present during the encounter and was fully available. All aspects of the patient interview, examination, medical decision making process, and medical care plan development were reviewed and approved by the faculty preceptor. The faculty preceptor is aware and concurs with the plan as stated in the body of this note and will attest to such by his/her cosignature. ATTENDING NOTE I, Pastor Hatahway MD, have independently examined this patient and performed my own physical exam, as well as reviewed the documentation and edited where necessary. I have discussed in detail with the resident / student the findings and plan of treatment as documented by the resident / student and edited their note. I agree with their findings and treatment plan and have edited their documentation. I will continue to follow the patient during this hospital stay. Objective Physical Examination General Exam: Positive: Alert, Cooperative, Moderate Distress Eye Exam: Positive: Conjunctiva & lids normal, EOMI ENT Exam: Positive: Atraumatic, Mucous membr. moist/pink, Other ENT (exhibits d ystonia of the tongue with tardive dyskinesia-like licking of the lips, pt is a mouth breather and this contributes to his unclear speech, however he denies SOB and his vital signs remain stable during examination); Negative: Nares Patent Neck Exam: Negative: JVD Chest Exam: Positive: Clear to auscultation, Diminished, Other (consistent with obesity hypoventilation syndrome); Negative: Wheezing Heart Exam: Positive: Rate Normal, Irregular Rhythm, Normal S1, Normal S2; Negative: Gallops, Murmurs, Rubs Abdomen Exam: Positive: Soft, Other (distended abdomen with central abdominal hernia, panniculitis); Negative: Tenderness Extremity Exam: Positive: Edema (edema from feet to chest; appears to be chronic ), Swelling (bilateral lower extremity edema with chronic venous stasis hyperpigmentation bilateral lower extremities to knees.), Other (lesion on right knee consistent with panniculitis; patient also has a new erythematous patch in left axillary region.); Negative: Normal pulses (difficult to palpate pedal pulses due to edema), Tenderness Skin Exam: Positive: Breakdown (consistent with PVD with chronic venous stasis bilaterally), Other skin issue (onycholysis present bilateral toenails) Neuro Exam: Positive: Normal Tone, Sensation Intact; Negative: Normal Speech (possibly baseline garbled speech) Psych Exam: Positive: Other (altered mental status, oriented to place and person, not to time.); Negative: Oriented x 3 Assessment /Plan Assessment #Altered mental status / Acute metabolic encephalopathy - likely 2/2 infection, possibly 2/2 baseline - Pt's baseline mental status is unknown, however pt is not oriented to time upon exam. He is oriented to person and place. - Physical without focal deficit - CT head negative - Pt has a history of hepatic steatosis found on ultrasound. - Will hold sertraline due to tardive dyskinesia-like tics of face (frequent licking of the lips). - Consult neurology - Ammonia levels only slightly elevated. - ABG shows respiratory alkalosis, pt is a mouth breather. This is not significant. #Possible nephrotic syndrome - Patient exhibits edema of b/l lower extremities and abd wall, hypoalbuminemia, proteinuria 3+ on UA - Patient is currently receiving diuretics due to CHF exacerbation - Nephrology consult #Possibly decompensated CHF exacerbation: - pt has pitting edema +2 from feet to chest. - He is on Furosemide at home. - BNP elevated - ECHO 01/2020: Low/normal LV systolic function (EF 50%) / Diastolic function not evaluated (re: ravin) - Imaging with evidence of pleural effusions / cephalization - Will check ECHO / Tele monitoring / Fluid restriction - Pt's troponin levels are low. - Continue Lasix 40mg IV BID with holding parameters, SBP <110. Pt is placed on a sodium restricted, 2g diet at this time. #Paroxysmal atrial fibrillation: - Continue Metoprolol succinate with holding parameters SBP<110 and HR<60. - EKG reveals normal sinus rhythm currently - Xarelto was discontinued as an outpatient for hematuria. - Pt's rhythm will be continuously monitored via telemetry, he is currently in NSR. - Follows with Dr. Leach #Possibly underlying NETTE: - pt has been placed on NETTE protocol for possible need for nocturnal oxygen. #Leukocytosis - possibly 2/2 UTI, complicated with indwelling Crowell - Pt's last hospitalization was due to UTI at which time he was treated with ceftriaxone - Pt has a chronic indwelling catheter that was covered in feces on admission. - Pt's vital signs are currently stable and he is afebrile. Urinalysis was positive prompting further exploration of etiology. - Urine culture is pending. - Continue Ceftriaxone. #Recovering from pneumonia: - Pt's CT chest showed ground glass opacities consistent with recovering from pneumonia. - Since readings compared to his recent hospitalization show some worsening, this may be due to CHF exacerbation. - Respiratory panel negative - Continue IV Lasix at this time. #Lymphedema: - Pt has chronic lower extremity edema evident with chronic venous stasis. - He has been placed on a sodium-restricted diet and given compressive stockings. #Prevention of intertriginous fungal infection: - Pt has multiple intertriginous areas susceptible to fungal infections. Continue home medication: nystatin powder. DVT Prophylaxis - Will start Heparin SQ Plan/VTE VTE Prophylaxis Ordered?: Yes (Heparin SQ 7500 units) Plan Diet: Continue Current Activity: Continue Current GME ATTESTATION My faculty preceptor for this patient encounter was physically present during the encounter and was fully available. All aspects of the patient interview, examination, medical decision making process, and medical care plan development were reviewed and approved by the faculty preceptor. The faculty preceptor is aware and concurs with the plan as stated in the body of this note and will attest to such by his/her cosignature. VS, I&O, 24H, Fishbone Vital Signs/I&O Vital Signs Date Time Temp Pulse Resp B/P (MAP) Pulse Ox O2 Delivery O2 Flow Rate FiO2 06/26/20 09:09 98.3 84 22 102/69 (80) 94 Room Air I&O- Last 24 Hours up to 6 AM 06/26/20 06:00 Intake Total 630 ml Output Total 8350 ml Balance -7720 ml Laboratory Data 24H LABS Laboratory Tests 2 06/25/20 15:53: Total Creatine Kinase 60, Creatine Kinase MB 1.1, Creatine Kinase MB Relative Index 1.83, Troponin I < 0.02 06/25/20 17:23: Ethyl Alcohol Level < 0.003 06/26/20 07:07: Anion Gap 8, Glomerular Filtration Rate > 60.0, Calcium Level 7.8L, Magnesium Level 2.1 06/26/20 07:08: Immature Granulocyte % (Auto) 1.3, Neutrophils (%) (Auto) 75.2H, Lymphocytes (%) (Auto) 10.6L, Monocytes (%) (Auto) 9.1H, Eosinophils (%) (Auto) 3.4H, Basophils (%) (Auto) 0.4, Neutrophils # (Auto) 8.5, Lymphocytes # (Auto) 1.2L, Monocytes # (Auto) 1.0H, Eosinophils # (Auto) 0.4, Basophils # (Auto) 0.1, Nucleated Red Blood Cells % (auto) 0.0 06/26/20 08:02: Urine Opiates Screen NEGATIVE, Urine Methadone Screen NEGATIVE, Urine Barbiturates Screen NEGATIVE, Urine Phencyclidine Screen NEGATIVE, Urine Amphetamines Screen NEGATIVE, Urine Benzodiazepines Screen NEGATIVE, Urine Cocaine Metabolite Screen NEGATIVE, Urine Cannabinoids Screen NEGATIVE CBC/BMP Laboratory Tests 06/26/20 07:07 06/26/20 07:08 Microbiology Microbiology 06/25/20 Blood Culture - Preliminary, Resulted No growth after 24 hours . All specim... 06/25/20 Blood Culture - Preliminary, Resulted No growth after 24 hours . All specim... 06/25/20 Urine Culture, Received Pending Alli Hahn DO Jun 26, 2020 11:13 Shelley CUELLAR-3 Jun 26, 2020 14:57 PASTOR HATHAWAY MD Jun 26, 2020 17:52
[2020-06-26] MEDS: METOPROLOL SUCC (TopROL XL) 50MG **XL** TAB PO SCH (21:01)
[2020-06-26 22:00] VITALS: BP 120/81
[2020-06-27] VITALS (8 sets, daily range): BP systolic 92–130; BP diastolic 50–86
[2020-06-27] MEDS ORDERED: OLANZapine INTRAMUSCULAR 10MG VIAL IM ONE (00:30)
[2020-06-27] MEDS: HEPARIN SOD (PORCINE) 5000UNITS/ML 1ML VIAL/SYRINGE SQ SCH ×3 (05:41→21:44)
[2020-06-27 05:43] LABS: ABG BASE EXCESS 1.9 (-2.0-2.0); ABG HCO3 25.9 MEQ/L (22.0-26.0); ABG PARTIAL PRESSURE CO2 38.1 mmHg (35.0-45.0); ABG PARTIAL PRESSURE O2 146.4 mmHg (75.0-100.0); ABG STANDARD HCO3 26.2 MEQ/L (22.0-26.0); ABG TOTAL CO2 27.1 MEQ/L (23.0-31.0)
[2020-06-27 06:05] LABS: BASO # 0.1 10^3/uL (0.0-0.2); BASO % 0.6 % (0.0-1.0); EOS # 0.2 10^3/uL (0.0-0.5); EOS % 1.6 % (0.0-3.0); HEMATOCRIT 33.5 % (42.0-52.0); HEMOGLOBIN 10.4 g/dl (13.5-17.5); LYMPH # 1.6 10^3/uL (1.5-5.0); LYMPH % 12.7 % (24.0-44.0); MEAN CORPUSCULAR HEMOGLOBIN 28.9 pg (27.0-33.0); MEAN CORPUSCULAR VOLUME 93.1 fl (80.0-96.0); MONO # 1.2 10^3/uL (0.0-0.8); MONO % 9.2 % (2.0-8.0); NEUTROPHILS # 9.4 10^3/uL (1.5-8.5); NEUTROPHILS % 74.5 % (36.0-66.0); PLATELET COUNT, AUTOMATED 170 10^3/uL (150-450); WHITE BLOOD COUNT 12.6 10^3/uL (4.0-10.0)
[2020-06-27 06:27] LABS: BLOOD UREA NITROGEN 11 MG/DL (7-18); CARBON DIOXIDE LEVEL 28 MEQ/L (21-32); CHLORIDE LEVEL 105 MEQ/L (98-107); GLOMERULAR FILTRATION RATE > 60.0 (>49); GLUCOSE, FASTING 96 MG/DL (70-100); POTASSIUM SERUM 3.3 MEQ/L (3.5-5.1); SODIUM LEVEL 142 MEQ/L (136-145)
[2020-06-27] MEDS ORDERED: CEFEPIME HCL 1 GM in D5W MINI-BAG PLUS 50 ML IV SCH (07:45)
[2020-06-27] MEDS ORDERED: VANCOMYCIN HCL 750 MG, VIAL MATE ADAPTER 1 EACH in D5W 250 ML IV SCH (07:45)
[2020-06-27] MEDS: METOPROLOL SUCC (TopROL XL) 50MG **XL** TAB PO SCH ×2 (09:07→20:17)
[2020-06-27] MEDS: DOCUSATE SODIUM 100MG CAPSULE PO SCH ×2 (09:09→20:53)
[2020-06-27] MEDS: KCL 10MEQ/100ML SWI (KRUN) 10 MEQ in IV 1 EA IV SCH ×6 (09:09→19:01)
[2020-06-27] MEDS: FUROSEMIDE 40MG/4ML VIAL (J1940) IV SCH ×2 (09:09→17:00)
--- NOTE | 2020-06-27 09:17 | REP ---
INDICATION: WBC, encephalopathy COMPARISON: 06/25/2020 TECHNIQUE: Portable AP view of the chest FINDINGS: Cardiomegaly is again suggested. Diffuse bilateral airspace disease again noted and similar to prior examination. Layering left effusion cannot definitively be excluded. No pneumothorax. Skeletal structures are intact. IMPRESSION: Bilateral airspace disease similar to prior examination. Cannot exclude layering left effusion <Electronically signed by Drew Rosario > 06/27/20 0913
[2020-06-27] MEDS: CEFEPIME HCL 2 GM in D5W MINI-BAG PLUS 50 ML IV SCH ×2 (10:30→20:53)
--- NOTE | 2020-06-27 10:54 | IPNPDOC ---
Subjective Date Seen The patient was seen on 06/27/20. Subjective Chief Complaint/HPI 65YO M presents with CHF exacerbation and UTI complaining of R hip pain. Events since last encounter Pt had atrial fibrillation with RVR at 8:09am and stayed in A-fib with RVR for 15 minutes at rate of 140, then his ventricular rate came down to high 130s. At this point, since he was on Med-Surg, metoprolol could not be given immediately. He was transferred PCU. Upon transferring to PCU, his rate continued to be in 120s. Nursing staff states that pt has developed auditory and visual hallucinations last night. General: Reports: ROS Unobtainable Objective Physical Examination General Exam: Positive: Alert, Cooperative, Moderate Distress Eye Exam: Positive: Conjunctiva & lids normal, EOMI ENT Exam: Positive: Atraumatic, Mucous membr. moist/pink, Other ENT (exhibits dystonia of the tongue with tardive dyskinesia-like licking of the lips, pt is a mouth breather and this contributes to his unclear speech, however he denies SOB and his vital signs remain stable during examination); Negative: Nares Patent Neck Exam: Negative: JVD Chest Exam: Positive: Clear to auscultation, Diminished, Other (consistent with obesity hypoventilation syndrome.); Negative: Wheezing Heart Exam: Positive: Rate Normal, Irregular Rhythm, Normal S1, Normal S2; Negative: Gallops, Murmurs, Rubs Telemetry: Positive: Atrial fibrillation (with RVR) Abdomen Exam: Positive: Soft, Other (distended abdomen with central abdominal hernia, panniculitis); Negative: Tenderness Extremity Exam: Positive: Edema (edema from feet to chest; appears to be chronic ), Swelling (bilateral lower extremity edema with chronic venous stasis hyperpigmentation bilateral lower extremities to knees.), Other (lesion on right knee consistent with panniculitis; patient also has a new erythematous patch in left axillary region.); Negative: Normal pulses (difficult to palpate pedal pulses due to edema), Tenderness Skin Exam: Positive: Breakdown (consistent with PVD with chronic venous stasis bilateral legs, pt has macerations on left posterior thigh, erythema of medial buttocks, no open ulcerations.), Other skin issue (onycholysis present bilateral toenails) Neuro Exam: Positive: Normal Tone, Sensation Intact; Negative: Normal Speech (possibly baseline garbled speech) Psych Exam: Positive: Other (Pt is exhibiting signs of visual and auditory hallucinations, but remains cooperative. Altered mental status, oriented to place and person, not to time.); Negative: Oriented x 3 Assessment /Plan Assessment #Atrial Fibrillation with RVR with h/o paroxysmal atrial fibrillation: - EKG revealed atrial fibrillation with RVR, VR in 140s. - Pt has been transferred to PCU due to development of atrial fibrillation with RVR. - Started Metoprolol 50 mg BID PO, with holding parameters SBP<110 and HR<60. - Ordered stat IV metoprolol 5mg once, since at 11:45am, pt's HR was still in 120s. - Xarelto was discontinued as an outpatient for hematuria, he is on heparin 7500 units SQ. - Pt's rhythm will be continuously monitored via telemetry. - Follows with Dr. Leach. #Hypokalemia: - Pt has potassium of 3.3 today. - Potassium 10mEq x 4 doses have been ordered. #Altered mental status / Acute metabolic encephalopathy - likely 2/2 infection, possibly 2/2 baseline - Pt began having auditory and visual hallucinations at night. - Pt's baseline mental status is unknown, however pt is not oriented to time upon exam. He is oriented to person and place. - CT head negative. - Pt has a history of hepatic steatosis found on ultrasound. - Will hold sertraline due to tardive dyskinesia-like tics of face (frequent licking of the lips). - Consulted neurology. - ABG shows improvement today and no longer in metabolic alkalosis. #Possible nephrotic syndrome - Patient exhibits edema of b/l lower extremities and abd wall, hypoalbuminemia, proteinuria 3+ on UA. - Patient is currently receiving diuretics due to CHF exacerbation. - Nephrology consult. #Possibly decompensated CHF exacerbation: - pt has pitting edema +2 from feet to chest. - He is on Furosemide at home. - BNP elevated. - ECHO 01/2020: Low/normal LV systolic function (EF 50%) / Diastolic function not evaluated (re: a.fib) - Imaging with evidence of pleural effusions / cephalization. - Will check ECHO / Tele monitoring / Fluid restriction. - Pt's troponin levels are low. - Continue Lasix 40mg IV BID with holding parameters, SBP <110. Pt is placed on a sodium restricted, 2g diet at this time. #Possibly underlying NETTE: - pt has been placed on NETTE protocol for possible need for nocturnal oxygen. - Nocturnal oximetry from 06/21/2018 showed abnormal nocturnal oximetry: pt qualifies for nocturnal oxygen supplementation. #Leukocytosis - possibly 2/2 UTI, complicated with indwelling Crowell - Pt's last hospitalization was due to UTI at which time he was treated with ceftriaxone. - Pt has a chronic indwelling catheter that was covered in feces on admission. - Pt's vital signs are currently stable and he is afebrile. Urinalysis was positive prompting further exploration of etiology. - Urine culture is pending. - WBC is trending up, 12.6 today. - Stopped ceftriaxone, started cefepime and vancomycin for broad spectrum coverage. - Ordered repeat procalcitonin. 06/25/20 showed procalcitonin: 0.11. #Recovering from pneumonia: - Pt's CT chest showed ground glass opacities consistent with recovering from pneumonia. - Since readings compared to his recent hospitalization show some worsening, this may be due to CHF exacerbation. - Respiratory panel negative. - Continue IV Lasix at this time. - Antibiotic coverage started. #Lymphedema: - Pt has chronic lower extremity edema evident with chronic venous stasis. - He has been placed on a sodium-restricted diet and given compressive stockings. #Prevention of intertriginous fungal infection: - Pt has multiple intertriginous areas susceptible to fungal infections. Continue home medication: nystatin powder. DVT Prophylaxis - Will start Heparin SQ Plan/VTE VTE Prophylaxis Ordered?: Yes (Heparin SQ 7500 units) Plan Diet: Continue Current Activity: Continue Current GME ATTESTATION My faculty preceptor for this patient encounter was physically present during the encounter and was fully available. All aspects of the patient interview, examination, medical decision making process, and medical care plan development were reviewed and approved by the faculty preceptor. The faculty preceptor is aware and concurs with the plan as stated in the body of this note and will attest to such by his/her cosignature. ATTENDING NOTE I, Pastor Hathaway MD, have independently examined this patient and performed my own physical exam, as well as reviewed the documentation and edited where necessary. I have discussed in detail with the resident / student the findings and plan of treatment as documented by the resident / student and edited their note. I agree with their findings and treatment plan and have margarito margareth their documentation. I will continue to follow the patient during this hospital stay. I discussed the patient's AMS and dysarthria with Dr. Parisi (neurology). At this stage, etiology is unclear. Recommendation for MRI brain w and wo contrast received, as well testing for lyme serology and MG antibodies. Given patient's body habitus (94 cm at widest shoulder girth), our MRI machine cannot accomm odate him. I spoke to transfer centers at [facility], [facility], [facility], and [facility], none of whom had an MRI machine that could accomodate him. I spoke to Dr. Parisi again, decision to pursue CT head w and wo contrast. Imaging reviewed, findings unremarkable and noted below: CT head w and wo contrast (06/27/20) FINDINGS: Brain: Normal. No hemorrhage. Unremarkable white matter. No mass effect. Cerebral ventricles: No ventriculomegaly. Bones/joints: Unremarkable. No acute fracture. Paranasal sinuses: Visualized sinuses are unremarkable. No fluid levels. Mastoid air cells: Visualized mastoid air cells are well aerated. Soft tissues: Unremarkable. IMPRESSION: No acute intracranial abnormality. Will treat suspected underlying sepsis with hope of improvement of encephalopathy. Escalated abx to vancomycin and cefepime. Repeat blood and urine cultures pending. Transferred to PCU. VS, I&O, 24H, Candice Vital Signs/I&O Vital Signs Date Time Temp Pulse Resp B/P (MAP) Pulse Ox O2 Delivery O2 Flow Rate FiO2 06/27/20 09:07 139 118/68 06/27/20 09:00 2.0 06/27/20 06:00 98.8 20 91 Nasal Cannula I&O- Last 24 Hours up to 6 AM 06/27/20 06:00 Intake Total 960 ml Output Total 3425 ml Balance -2465 ml Laboratory Data 24H LABS Laboratory Tests 2 06/27/20 05:36: Immature Granulocyte % (Auto) 1.4, Neutrophils (%) (Auto) 74.5H, Lymphocytes (%) (Auto) 12.7L, Monocytes (%) (Auto) 9.2H, Eosinophils (%) (Auto) 1.6, Basophils (%) (Auto) 0.6, Neutrophils # (Auto) 9.4H, Lymphocytes # (Auto) 1.6, Monocytes # (Auto) 1.2H, Eosinophils # (Auto) 0.2, Basophils # (Auto) 0.1, Nucleated Red Blood Cells % (auto) 0.0, Anion Gap 9, Glomerular Filtration Rate > 60.0, Calcium Level 8.0L, Magnesium Level 2.0, Ammonia 30 06/27/20 05:40: Blood Gas Bicarbonate Standard 26.2H, Arterial Blood pH 7.450, Arterial Blood Partial Pressure CO2 38.1, Arterial Blood Partial Pressure O2 146.4H, Arterial Blood Total CO2 27.1, Arterial Blood HCO3 25.9, Arterial Blood Base Excess 1.9, Arterial Blood Oxygen Saturation 99.0 06/27/20 06:13: Urine Color ARNOLD, Urine Appearance CLOUDYH, Urine pH 5.0, Urine Specific Arthur 1.019, Urine Protein 2+H, Urine Glucose (UA) NEGATIVE, Urine Ketones TRACEH, Urine Blood 3+H, Urine Nitrite NEGATIVE, Urine Bilirubin NEGATIVE, Urine Urobilinogen 0.2, Urine Leukocyte Esterase 3+H, Urine WBC (Auto) TNTCH, Urine RBC (Auto) 181H, Urine Hyaline Casts (Auto) 0, Urine Bacteria (Auto) NEGATIVE, Urine Squamous Epithelial Cells 0, Urine Mucus (Auto) LARGE, Urine Sperm (Auto) 06/27/20 08:10: Vancomycin Level Trough < 0.8L CBC/BMP Laboratory Tests 06/27/20 05:36 Microbiology Microbiology 06/27/20 Urine Culture, Received Pending 06/25/20 Blood Culture - Preliminary, Resulted No Growth after 48 hours. All Specime... 06/25/20 Blood Culture - Preliminary, Resulted No Growth after 48 hours. All Specime... 06/25/20 Urine Culture, Received Pending Alli Hahn DO Jun 27, 2020 10:54 PASTOR HATHAWAY MD Jun 27, 2020 21:16
[2020-06-27] MEDS ORDERED: VANCOMYCIN HCL 1,000 MG, VIAL MATE ADAPTER 1 EACH in D5W 250 ML IV ONE (11:00)
[2020-06-27] MEDS: VANCOMYCIN HCL 1,000 MG, VIAL MATE ADAPTER 1 EACH in D5W 250 ML IV SCH ×2 (11:41→21:43)
[2020-06-27] MEDS ORDERED: METOPROLOL 5 MG/5 ML VIAL IV STA (11:41)
[2020-06-27 12:20] LABS: ABG BASE EXCESS 6.9 (-2.0-2.0); ABG HCO3 31.2 MEQ/L (22.0-26.0); ABG O2 SATURATION 94.4 % (95.0-99.0); ABG PARTIAL PRESSURE CO2 43.2 mmHg (35.0-45.0); ABG PARTIAL PRESSURE O2 68.7 mmHg (75.0-100.0); ABG STANDARD HCO3 30.7 MEQ/L (22.0-26.0); ABG TOTAL CO2 32.5 MEQ/L (23.0-31.0); ABG pH (ARTERIAL) 7.476 UNITS (7.350-7.450)
[2020-06-27] MEDS ORDERED: LORazepam 2 MG/ML VIAL IV PRN (12:30)
[2020-06-27] MEDS ORDERED: DIGOXIN INJ 0.5 MG/2 ML AMP (J1160) IV STA (14:21)
[2020-06-27] MEDS: DIMETHICONE 2% OINTMENT(VANICREAM) 70GM TUBE TOP SCH ×2 (16:37→17:03)
[2020-06-27] MEDS ORDERED: ISOVUE-370 76% 100ML VIAL As Ordered ONE (19:23)
--- NOTE | 2020-06-27 19:41 | CR ---
NEPHROLOGY CONSULTATION DATE: 06/27/2020 REQUESTING PHYSICIAN: Philip Sullivan M.D. REASON FOR CONSULTATION: Proteinuria and possible nephrotic syndrome HISTORY OF PRESENT ILLNESS: Mr. Mccarthy is a 65-year-old gentleman with multiple chronic medical problems who was discharged from [facility] just earlier this morning and got admitted a couple of days ago due to generalized weakness and hip pain. He was found to have 3+ protein and blood in his urine while the patient had a chronic indwelling Crowell catheter. A Nephrology consultation was requested for possible nephrotic syndrome. I came to see the patient today and he was being transferred to the Progressive Care Unit at the same time due to atrial fibrillation with a rapid ventricular rate. I did see him in the Progressive Care Unit after his transfer. He has had an indwelling Crowell catheter for an unknown period of time which is draining cloudy urine without any gross hematuria. The patient is hypotensive with blood pressure just barely above 100 mm of mercury systolic and his heart rate is about 110 with atrial fibrillation. The patient is a poor historian and not able to provide much information. He is morbidly obese and not even able to get up himself. PAST MEDICAL HISTORY: The patient's past medical history is significant for: 1. Super morbid obesity. 2. Recent history of bilateral pneumonia. 3. Atrial fibrillation. 4. Depression. 5. History of stage 2 decubitus ulcers. 6. History of congestive heart failure. 7. History of lower extremity edema. 8. History of anemia. 9. Insomnia. PAST SURGICAL HISTORY: The patient's past surgical history is significant for: 1. Left hip replacement. 2. Hernia repair. 3. Cholecystectomy. 4. Appendectomy. FAMILY HISTORY: Noncontributory. PERSONAL AND SOCIAL HISTORY: The patient is a former smoker who quit in 2019 and denies any alcohol or recreational drug use. HOME MEDICATIONS: His home medications include: 1. Furosemide. 2. Metoprolol. 3. Sertraline. CURRENT MEDICATIONS: His current medications in the hospital include: 1. Vancomycin one gram every 8 hours. 2. Metoprolol 50 mg twice daily. 3. Cefepime 2 grams every 8 hours. 4. Subcutaneous Heparin 7,500 units every 8 hours. 5. Tylenol as needed. 6. Furosemide 40 mg twice daily. ALLERGIES: The patient has no known drug allergies. REVIEW OF SYSTEMS: The patient himself is a poor historian. He is transferred to the Progressive Care Unit due to atrial fibrillation with a rapid ventricular rate, but he does have a history of chronic atrial fibrillation. No fever or chills reported. He has been treated for a urinary tract infection with broad spectrum antibiotics, pending cultures. Ears, nose and throat are reported unremarkable. Cardiovascular system is significant for chronic edema, shortness of breath, and rapid atrial fibrillation. Respiratory system is significant for possible sleep apnea and morbid obesity associated hypoventilation. GI system is negative for vomiting or diarrhea. Genitourinary system is significant for a chronic indwelling Crowell catheter, cloudy urine and possible infection. Musculoskeletal system is significant for chronic bilateral lower extremity edema and degenerative arthritis. The patient is bed bound and unable to even get up. He has decubitus ulcers. Hematological system is significant for anemia. He is not on any halfway anticoagulation. Psychosocial system is significant for depression. Neurologic system is negative for seizures or stroke. PHYSICAL EXAMINATION: VITAL SIGNS: Temperature 97.5 degrees Fahrenheit, heart rate about 120 per minute and respiratory rate 20 per minute, blood pressure 104/60 mm of mercury and oxygen saturation is 99% on one liter oxygen. HEENT: His head is atraumatic. Oral mucosa is somewhat dry. NECK: Supple and JVD difficult to be assessed. HEART: Irregular and tachycardic. LUNGS: Diminished breath sounds bilaterally. ABDOMEN: Obese, soft and nontender. There is a large ventral hernia. EXTREMITIES: Chronic stasis with lower extremity edema. There is no cyanosis or clubbing. NEUROLOGICALLY: He is awake and able to answer simple questions. LABORATORY DATA: His labs this morning showed sodium of 142, potassium 3.3, chloride 105, CO2 28, BUN 11 and creatinine 0.9. On the day of admission, June 25, his BUN was 9 and creatinine 0.81. His ammonia level was 39, total protein 7.4 and albumin 2.5. Lipase level was 54. Urinalysis showed a cloudy appearance with 2+ protein today and 3+ blood, too numerous to count WBCs and 3+ leukocyte esterase. There is a large amount of mucous. PROBLEMS: 1. Proteinuria I suspect this is related to chronic cystitis with a large amount of mucous and a true assessment of his proteinuria would require eradication of infection. I would recommend to continue treatment of his chronic cystitis, and then we will consider to repeat a urinalysis his urine is clear. We can then get a 24-hour urine collection to assess the proteinuria along with possible urine protein electrophoresis. The patient does have low serum albumin, however this is also likely related to chronic infection, recent hospitalization as the patient was recently in the hospital with bilateral pneumonia and has a decubitus ulcer. He is not a suitable candidate for kidney biopsy and it will be too premature to even consider the kidney biopsy at this point while he is quite unstable hemodynamically. He is probable not a suitable candidate for biopsy in view of his morbid obesity. Thank you for asking my opinion about Mr. Mccarthy. I will follow him along with you.
--- NOTE | 2020-06-27 20:19 | REPVR ---
PROCEDURE INFORMATION: Exam: CT Head Without And With Contrast Exam date and time: 06/27/2020 7:50 PM Age: 65 years old Clinical indication: Other: Encephalopathy, dysarthria TECHNIQUE: Imaging protocol: Computed tomography of the head without and with intravenous contrast. Radiation optimization: All CT scans at this facility use at least one of these dose optimization techniques: automated exposure control; mA and/or kV adjustment per patient size (includes targeted exams where dose is matched to clinical indication); or iterative reconstruction. Contrast material: ISOVUE 370; Contrast volume: 75 ml; Contrast route: INTRAVENOUS (IV); COMPARISON: CT Head without contrast 06/25/2020 7:20 AM FINDINGS: Brain: Normal. No hemorrhage. Unremarkable white matter. No mass effect. Cerebral ventricles: No ventriculomegaly. Bones/joints: Unremarkable. No acute fracture. Paranasal sinuses: Visualized sinuses are unremarkable. No fluid levels. Mastoid air cells: Visualized mastoid air cells are well aerated. Soft tissues: Unremarkable. IMPRESSION: No acute intracranial abnormality. Electronically signed by: David Cabral On 06/27/2020 20:19:07 PM
[2020-06-27 20:29] LABS: INR 1.28; PROTHROMBIN TIME 16.3 SECONDS (12.5-14.3)
[2020-06-27 20:30] LABS: PARTIAL THROMBOPLASTIN TIME 43.4 SECONDS (24.2-38.5)
[2020-06-27 20:33] LABS: D-DIMER QUANT 3006.15 ng/ml (<500)
[2020-06-27 21:01] LABS: ALBUMIN 2.6 GM/DL (3.2-5.2); ALT/SGPT 16 U/L (12-78); BILIRUBIN,DIRECT 0.6 MG/DL (0.0-0.2); CPK CREATINE PHOSPHOKINASE 63 U/L (39-308); FERRITIN 123 NG/ML (26-388); LDH LACTATE DEHYDROGENASE 247 U/L (87-241); TOTAL PROTEIN 7.4 GM/DL (6.4-8.2); TROPONIN I < 0.02 NG/ML (< 0.10)
[2020-06-28] VITALS (9 sets, daily range): BP systolic 106–128; BP diastolic 56–70
[2020-06-28] MEDS: DIMETHICONE 2% OINTMENT(VANICREAM) 70GM TUBE TOP SCH ×3 (00:30→20:31)
[2020-06-28] MEDS: CEFEPIME HCL 2 GM in D5W MINI-BAG PLUS 50 ML IV SCH ×3 (04:55→20:31)
[2020-06-28] MEDS: HEPARIN SOD (PORCINE) 5000UNITS/ML 1ML VIAL/SYRINGE SQ SCH ×3 (05:55→23:07)
[2020-06-28] MEDS ORDERED: VANCOMYCIN HCL 1,000 MG, VIAL MATE ADAPTER 1 EACH in D5W 250 ML IV SCH ×3 (06:00→22:00)
[2020-06-28 06:04] LABS: BASO # 0.1 10^3/uL (0.0-0.2); BASO % 0.7 % (0.0-1.0); EOS # 0.6 10^3/uL (0.0-0.5); EOS % 6.9 % (0.0-3.0); HEMATOCRIT 35.9 % (42.0-52.0); LYMPH % 12.3 % (24.0-44.0); MEAN CORPUSCULAR HEMOGLOBIN 30.1 pg (27.0-33.0); MEAN CORPUSCULAR HGB CONC 30.6 g/dl (32.0-36.5); MEAN CORPUSCULAR VOLUME 98.1 fl (80.0-96.0); MONO # 0.7 10^3/uL (0.0-0.8); NEUTROPHILS # 5.7 10^3/uL (1.5-8.5); NEUTROPHILS % 70.1 % (36.0-66.0); PLATELET COUNT, AUTOMATED 155 10^3/uL (150-450); RED BLOOD COUNT 3.66 10^6/uL (4.30-6.10); WHITE BLOOD COUNT 8.1 10^3/uL (4.0-10.0)
[2020-06-28 06:37] LABS: BLOOD UREA NITROGEN 11 MG/DL (7-18); CALCIUM LEVEL 7.9 MG/DL (8.8-10.2); CARBON DIOXIDE LEVEL 31 MEQ/L (21-32); CHLORIDE LEVEL 105 MEQ/L (98-107); CREATININE FOR GFR 0.79 MG/DL (0.70-1.30); GLOMERULAR FILTRATION RATE > 60.0 (>49); GLUCOSE, FASTING 94 MG/DL (70-100); MAGNESIUM LEVEL 2.3 MG/DL (1.8-2.4); POTASSIUM SERUM 3.6 MEQ/L (3.5-5.1); SODIUM LEVEL 140 MEQ/L (136-145)
[2020-06-28] MEDS: METOPROLOL SUCC (TopROL XL) 50MG **XL** TAB PO SCH (09:00)
[2020-06-28] MEDS: FUROSEMIDE 40MG/4ML VIAL (J1940) IV SCH ×2 (09:00→18:37)
[2020-06-28] MEDS: DOCUSATE SODIUM 100MG CAPSULE PO SCH ×2 (10:35→20:30)
[2020-06-28] MEDS ORDERED: NYSTATIN 100,000 UNITS/GM TOPICAL PWD 15 GM TOP PRN (13:15)
[2020-06-28 13:37] LABS: INR 1.22; PROTHROMBIN TIME 15.7 SECONDS (12.5-14.3)
--- NOTE | 2020-06-28 15:48 | ECGEPIP ---
[facility] Test Date: 2020-06-27 Pat Name: JULIANO JENKINS Department: Room: [place] [address] Gender: Male [employer]: rj : 1955 Requested By: Alli Amador Order Number: [id number] Reading MD: Desmond Garza Measurements Intervals [place] Rate: 140 P: NV: QRS: 1 QRSD: 94 T: 177 QT: 288 QTc: 439 Interpretive Statements Atrial fibrillation with rapid ventricular response Low voltage QRS Nonspecific ST-T wave abnormalities Atrial fibrillation with RVR is new since prior tracing of 06/25/2020 bit also s seen in tracings from 01/2020, 03/2020, 05/24/2020 Electronically Signed on 06-28-2020 15:47:54 EST by Desmond Garza
--- NOTE | 2020-06-28 17:29 | IPNPDOC ---
Subjective Date Seen The patient was seen on 06/28/20. Subjective Chief Complaint/HPI Pt had no overnight events. He has now been placed on oxygen with 1 L nasal cannula and his oximetry has improved. Patient is alert and oriented during examination and reports no chest pain, abdominal pain, and states that he feels a lot better. He reports bleakly remembering yesterday's episode of atrial fibrillation and states that he felt heart palpitations at that time. He reports feeling thirsty today and observes a good appetite. Events since last encounter None. General: Reports: Normal Appetite; Denies: ROS Unobtainable, Chills, Night Sweats, Fatigue, Malaise, Other Symptoms Pulmonary: Denies: Dyspnea, Cough, Pleuritic Chest Pain, Other Symptoms Cardiovascular: Denies: Chest Pain, Palpitations, Orthopnea, Paroxysmal Noc. Dyspnea, Edema, Lt Headedness, Other Symptoms Gastrointestinal: Denies: Nausea, Vomiting, Abdominal Pain, Diarrhea, Constipation, Melena, Hematochezia, Other Symptoms Objective Physical Examination General Exam: Positive: Alert, Cooperative, No Acute Distress Eye Exam: Positive: Conjunctiva & lids normal, EOMI ENT Exam: Positive: Atraumatic; Negative: Mucous membr. moist/pink (Dry oral mucosa), Nares Patent Neck Exam: Negative: JVD Chest Exam: Positive: Clear to auscultation, Diminished, Other (bibasilar regions of lung examinations limited due to body habitus; consistent with obesity hypoventilation syndrome.); Negative: Wheezing Heart Exam: Positive: Bradycardic, Irregular Rhythm, Normal S1, Normal S2; Negative: Gallops, Murmurs, Rubs Telemetry: Positive: No significant arrhythmia Abdomen Exam: Positive: Soft, Other (distended abdomen with central abdominal hernia, panniculitis); Negative: Tenderness Extremity Exam: Positive: Edema (edema from feet to chest, and arms, generalized anasarca; appears to be chronic, 2+), Swelling (bilateral lower ex tremity edema with chronic venous stasis hyperpigmentation bilateral lower extremities to knees.), Other (lesion on right knee consistent with panniculitis; patient also has a new erythematous patch in left axillary region.); Negative: Normal pulses (difficult to palpate pedal pulses due to edema), Tenderness Skin Exam: Positive: Breakdown (consistent with PVD with chronic venous stasis bilateral legs, pt has macerations on left posterior thigh, erythema of medial buttocks, no open ulcerations.), Other skin issue (onycholysis present bilateral toenails) Neuro Exam: Positive: Normal Speech (improved speech since admission, pt is able to have a full conversation with me and does not stop to breath while on nasal cannula.), Normal Tone, Sensation Intact Psych Exam: Positive: Other (alert and orientedx3.); Negative: Oriented x 3 Assessment /Plan Assessment #Paroxysmal atrial fibrillation with RVR with h/o atrial fibrillation: - rate-controlled today, ventricular rate in high 50s - morning metoprolol dose held due to HR<60. - Changed to Metoprolol 25mg BID, with holding parameters SBP<110 and HR<60. - Pt was transferred on 06/27/2020 due to PCU due to development of atrial fibril lation with RVR. - Xarelto was discontinued as an outpatient for gross hematuria, he is on heparin 7500 units SQ during this hospital stay. - Pt's rhythm will be continuously monitored via telemetry. - Follows with Dr. Leach. #Hypokalemia- resolved: - Pt has potassium of 3.6 today. - Potassium 10mEq x 4 doses administered on 06/27/2020. #Altered mental status / Acute metabolic encephalopathy - likely 2/2 infection, possibly 2/2 baseline - Pt's mental status has improved today and he is A&Ox3 today. - CT head negative on 06/25/2020. - Pt has a history of hepatic steatosis found on ultrasound. (06/10/2020). - Holding sertraline due to tardive dyskinesia-like tics of face on presentation.(frequent licking of the lips). - Consulted neurology. - ABG shows mild metabolic alkalosis today. #Possible nephrotic syndrome - Patient exhibits edema of b/l lower extremities and abd wall, hypoalbuminemia, proteinuria 3+ on UA. - Patient is currently receiving diuretics due to CHF exacerbation. - Nephrology is following patient and awaiting resolution of infectious etiology to understand true etiology of proteinuria. Their help is very much appreciated. #Possibly decompensated CHF exacerbation: - generalized anasarca present since admission. - some improvement of edema seen, still pitting edema +2. - He is on Furosemide at home. - BNP elevated. - ECHO 01/2020: Low/normal LV systolic function (EF 50%) / Diastolic function not evaluated (re: ravin) - Imaging with evidence of pleural effusions / cephalization. - Will check ECHO / Tele monitoring / Fluid restriction. - Pt's troponin levels are low. - Continue Lasix 40mg IV BID with holding parameters, SBP <110. Pt is placed on a sodium restricted, 2g diet at this time. #Possibly underlying NETTE: - Pt currently receiving 1LNC during the day as well now. - pt has been placed on NETTE protocol for possible need for nocturnal oxygen. - Nocturnal oximetry from 06/21/2018 showed abnormal nocturnal oximetry: pt qualifies for nocturnal oxygen supplementation. #Leukocytosis - possibly 2/2 UTI, complicated with indwelling Crowell - Pt's last hospitalization was due to UTI at which time he was treated with ceftriaxone. - Pt has a chronic indwelling catheter that was covered in feces on admission. - Pt's vital signs are currently stable and he is afebrile. Urinalysis was positive prompting further exploration of etiology. - Urine culture is pending. - WBC is trending up, 12.6 today. - Stopped ceftriaxone, started cefepime and vancomycin for broad spectrum coverage. - Continue cefepime and vancomycin. - Vancomycin trough level: 06/28/2020, pharmacy is aware. - Ordered repeat procalcitonin. 06/27/20 showed procalcitonin: 0.12, increased from 0.11 from 06/25/2020. #Recovering from pneumonia: - Pt's CT chest showed ground glass opacities consistent with recovering from pneumonia. - Since readings compared to his recent hospitalization show some worsening, this may be due to CHF exacerbation. - Respiratory panel negative. - SARS-CoV-2: negative - Continue IV Lasix at this time. - Antibiotic coverage started. #Lymphedema: - Pt has chronic lower extremity edema evident with chronic venous stasis. - He has been placed on a sodium-restricted diet and given compressive stockings. #Prevention of intertriginous fungal infection: - Pt has multiple intertriginous areas susceptible to fungal infections. Continue home medication: nystatin powder. DVT Prophylaxis - Will start Heparin SQ Plan/VTE VTE Prophylaxis Ordered?: Yes (Heparin SQ 7500 units) Plan Diet: Continue Current Activity: Continue Current GME ATTESTATION My faculty preceptor for this patient encounter was physically present during the encounter and was fully available. All aspects of the patient interview, examination, medical decision making process, and medical care plan development were reviewed and approved by the faculty preceptor. The faculty preceptor is aware and concurs with the plan as stated in the body of this note and will attest to such by his/her cosignature. VS, I&O, 24H, Fishbone Vital Signs/I&O Vital Signs Date Time Temp Pulse Resp B/P (MAP) Pulse Ox O2 Delivery O2 Flow Rate FiO2 06/28/20 09:00 55 106/83 06/28/20 04:00 96.8 26 97 Nasal Cannula 1.0 I&O- Last 24 Hours up to 6 AM 06/28/20 06:00 Intake Total 1560 ml Output Total 4950 ml Balance -3390 ml Laboratory Data 24H LABS Laboratory Tests 2 06/27/20 20:11: Prothrombin Time 16.3H, Prothromb Time International Ratio 1.28, Activated Partial Thromboplast Time 43.4H, Fibrinogen 403, D-Dimer, Quantitative 3006.15H, Ferritin 123, Total Bilirubin 1.0, Direct Bilirubin 0.6H, Aspartate Amino Transf (AST/SGOT) 31, Alanine Aminotransferase (ALT/SGPT) 16, Alkaline Phosphatase 166H, Lactate Dehydrogenase 247H, Total Creatine Kinase 63, Troponin I < 0.02, C-Reactive Protein, Quantitative 15.90H, Total Protein 7.4, Albumin 2.6L, Albumin/Globulin Ratio 0.5 06/28/20 05:50: Immature Granulocyte % (Auto) 1.0, Neutrophils (%) (Auto) 70.1H, Lymphocytes (%) (Auto) 12.3L, Monocytes (%) (Auto) 9.0H, Eosinophils (%) (Auto) 6.9H, Basophils (%) (Auto) 0.7, Neutrophils # (Auto) 5.7, Lymphocytes # (Auto) 1.0L, Monocytes # (Auto) 0.7, Eosinophils # (Auto) 0.6H, Basophils # (Auto) 0.1, Nucleated Red Blood Cells % (auto) 0.4H, Anion Gap 4L, Glomerular Filtration Rate > 60.0, Calcium Level 7.9L, Magnesium Level 2.3 06/28/20 09:00: 06/28/20 13:05: Prothrombin Time 15.7H, Prothromb Time International Ratio 1.22 CBC/BMP Laboratory Tests 06/28/20 05:50 Microbiology Microbiology 06/27/20 Urine Culture, Received Pending 06/25/20 Blood Culture - Preliminary, Resulted No Growth after 72 hours. All specime... 06/25/20 Blood Culture - Preliminary, Resulted No Growth after 72 hours. All specime... 06/25/20 Urine Culture, Received Pending Alli Hahn DO Jun 28, 2020 14:01
[2020-06-28] MEDS: METOPROLOL SUCC *XL* 25MG TAB (TopROL *XL*) PO SCH (20:31)
[2020-06-29] VITALS (20 sets, daily range): BP systolic 100–129; BP diastolic 58–68; O2SAT 90–99
[2020-06-29 05:43] LABS: BASO # 0.1 10^3/uL (0.0-0.2); BASO % 0.7 % (0.0-1.0); EOS # 0.7 10^3/uL (0.0-0.5); EOS % 7.5 % (0.0-3.0); HEMATOCRIT 33.8 % (42.0-52.0); LYMPH # 1.5 10^3/uL (1.5-5.0); LYMPH % 17.5 % (24.0-44.0); MEAN CORPUSCULAR HEMOGLOBIN 28.5 pg (27.0-33.0); MEAN CORPUSCULAR HGB CONC 29.6 g/dl (32.0-36.5); MEAN CORPUSCULAR VOLUME 96.3 fl (80.0-96.0); MONO # 0.9 10^3/uL (0.0-0.8); NEUTROPHILS # 5.5 10^3/uL (1.5-8.5); PLATELET COUNT, AUTOMATED 151 10^3/uL (150-450); RED BLOOD COUNT 3.51 10^6/uL (4.30-6.10); WHITE BLOOD COUNT 8.8 10^3/uL (4.0-10.0)
[2020-06-29] MEDS: HEPARIN SOD (PORCINE) 5000UNITS/ML 1ML VIAL/SYRINGE SQ SCH (05:48)
[2020-06-29] MEDS: CEFEPIME HCL 2 GM in D5W MINI-BAG PLUS 50 ML IV SCH (05:48)
[2020-06-29 06:31] LABS: BLOOD UREA NITROGEN 14 MG/DL (7-18); CARBON DIOXIDE LEVEL 33 MEQ/L (21-32); CHLORIDE LEVEL 103 MEQ/L (98-107); CREATININE FOR GFR 0.76 MG/DL (0.70-1.30); GLOMERULAR FILTRATION RATE > 60.0 (>49); GLUCOSE, FASTING 85 MG/DL (70-100); MAGNESIUM LEVEL 2.2 MG/DL (1.8-2.4); SODIUM LEVEL 142 MEQ/L (136-145)
[2020-06-29] MEDS ORDERED: POTASSIUM CHLORIDE 10 MEQ SR TABLET PO ONE ×2 (07:30→12:00)
[2020-06-29] MEDS: FUROSEMIDE 40MG/4ML VIAL (J1940) IV SCH ×2 (09:28→17:30)
[2020-06-29] MEDS: DOCUSATE SODIUM 100MG CAPSULE PO SCH ×2 (09:28→20:33)
[2020-06-29] MEDS: LevoFLOXacin IV 750 MG in IV 1 EA IV SCH (09:29)
[2020-06-29] MEDS: DIMETHICONE 2% OINTMENT(VANICREAM) 70GM TUBE TOP SCH ×2 (09:29→20:33)
[2020-06-29] MEDS: METOPROLOL SUCC *XL* 25MG TAB (TopROL *XL*) PO SCH ×2 (09:29→20:33)
[2020-06-29] MEDS ORDERED: SLF 3 ML SYR IV PRN (09:30)
[2020-06-29] MEDS ORDERED: HEPARIN DRIP 25,000 UNITS in IV 1 EA IV SCH (09:38)
[2020-06-29] MEDS ORDERED: HEPARIN SOD (PORCINE) 5000UNITS/ML 1ML VIAL/SYRINGE IV PRN (09:45)
--- NOTE | 2020-06-29 09:49 | CR ---
CONSULTATION DATE: 06/29/2020 REFERRING PHYSICIAN: Patsor Hathaway M.D. REASON FOR CONSULTATION: Altered mental status, speech impairment and abnormal movements. HISTORY OF PRESENT ILLNESS: Ta Mccarthy is a 65-year-old man who was admitted to [facility] due to right hip pain. He was discharged from [facility] in the first week of June 2020, due to multiple medical problems, including gross hematuria, metabolic encephalopathy, urinary tract infection, pneumonia, atrial fibrillation, fungal infection, depression, stage II decubitus ulcer, morbid obesity. Patient has chronic indwelling Crowell catheter. Patient has severe dysarthria and his speech is almost completely distorted and most of the people cannot make sense of his speech. I was unable to understand any of the words patient was stating. His baseline mental status was unknown. He was repeatedly asking for food at the time of his admission. I called and talked to patient's significant other, Mirna Tidwell, who stated that patient was at his baseline state of health until three or four days ago when he developed difficulty with speech and abnormal movement of his arms and legs. There were no new complaints of headaches, neck or back pain or seizures. Patient's significant other thought the patient had a cold or sinus infection. Patient tested negative for COVID twice during this hospital admission. PAST MEDICAL HISTORY: 1. Atrial fibrillation. 2. Congestive heart failure. 3. Depression. 4. Morbid obesity. 5. Lymphedema. 6. Peripheral arterial disease. 7. Anemia. 8. Insomnia. 9. Stage II decubitus ulcer. 10. Undiagnosed sleep apnea. 11. Left hip replacement. 12. Hernia repair. 13. Cholecystectomy. 14. Appendectomy. SOCIAL HISTORY: Patient is a former smoker. No alcohol or illicit drug use currently. HOME MEDICATIONS: - Lasix 40 mg by mouth daily - metoprolol 50 mg by mouth daily - sertraline 100 mg by mouth daily - Nystatin ALLERGIES: No known drug allergies. FAMILY HISTORY: Unremarkable and noncontributory. REVIEW OF SYSTEMS: Could not be obtained. PHYSICAL EXAMINATION: Temperature 98.7, pulse 68, respiratory rate 21, blood pressure 105/66, 93% saturations on room air. HEART: Irregularly irregular. LUNGS: Crackles in the bases. MUSCULOSKELETAL: He has chronic venous stasis changes in both legs. He has 1+ pedal edema in both legs. No musculoskeletal abnormalities. He appears to have choreoathetoid movements of arms and legs. Patient is awake, alert, oriented to self. His speech is severely dysarthric. I could not understand any words. He is able to follow simple commands. He is able to move all four extremities. Strength is 5/5 in all four extremities. Deep tendon reflexes are 1+ in arms and absent in legs. No dysmetria in arms. Gait could not be tested. DIAGNOSTIC STUDIES: CT scan without contrast showed small vessel ischemic disease of brain and volume loss. Platelet count was 147, WBC is 11.3. Normal metabolic profile. Urine toxicology screen was negative. Flu, COVID-19 and respiratory syncytial virus (RSV) were negative. Ammonia was 39. ASSESSMENT: 1. Altered mental status and speech due to unclear etiology. 2. Lyme disease and myasthenia gravis are less likely in the differential diagnosis. PLAN: 1. MRI of brain with and without contrast. If patient does not fit into MRI scan in [place], we should contact radiology at [facility] or [place]. CT scan of head with and without contrast would be another option, although would be less likely to reveal brain stem pathology. 2. Check Lyme antibody, MuSK antibody, acetylcholine receptor antibody, et cetera. 3. Check vitamin B12 and vitamin B1. [facility]
--- NOTE | 2020-06-29 10:03 | IPNPDOC ---
Text Note Date of Service The patient was seen on 06/29/20. NOTE Subjective: Patient is a 65 y.o. M with a history of atrial fibrillation, CHF, depression (on Sertraline), UTI, metabolic encephalopathy, and morbid obesity who presented to the ED due to R hip pain and generalized weakness. Patient presented from home via EMS covered in dry feces. Patient was difficult to understand due to dysarthria and AMS. His baseline mental status was unknown at that time. Yesterday (06/28/2020), patients speech improved and he was alert and oriented to examination. No acute events overnight. Patient states that he is feeling better and has been able to walk to the bathroom and back with assistance. He reports dry mouth and feeling thirsty but has not had difficultly eating breakfast this morning. Patient states that he has been on Xarelto since January 13, 2020 but that was stopped when he developed gross hematuria. He also reports that he has a home health nurse but does not recall how often they come by. Denies chest pain, headache, blurry vision, abdominal pain, or leg pain at this time. Objective: GENERAL: Patient is alert, cooperative, and in no acute distress HEENT: NC/AT. Conjunctiva and lids normal. EOMI. Dry oral mucosa. Nares patent NECK: No JVD. CHEST: Clear to auscultation. Diminished L basilar breath sounds. No wheezing. HEART: Regular rate and rhythm. ABDOMEN: Soft abdomen and non-tender to palpation. Distended abdomen with central abdominal hernia, panniculitis. EXTREMITY: Generalized anasarca still present to arms, legs, and abdominal wall, however less tight than previous exams. BLE edema with chronic venous stasis hyperpigmentation. Difficult to palpate pedal pulses due to edema SKIN: Macerations on L posterior thigh, erythema of medial buttocks, no open ulcerations. Onycholysis present bilateral toenails NEURO: Improved speech since admission, Patient is able to have a full conversation with me and does not stop to breath while on nasal cannula. Normal tone. Sensation intact PSYCH: A&Ox3. No visual or auditory hallucinations appreciated at this time. Assessment/Plan: #Paroxysmal atrial fibrillation with RVR with h/o atrial fibrillation: - rate-controlled today. - Continue Metoprolol 25mg BID, with holding parameters SBP<110 and HR<60. - Pt was transferred on 06/27/2020 due to PCU due to development of atrial fibrillation with RVR. - Xarelto was discontinued as an outpatient for gross hematuria. - He was on heparin 7500 units SQ however, since patient's INR is subtherapeutic switched to heparin drip today. - Pt's home dose of Xarelto is 20mg daily, held at this time. Consider starting tomorrow. - Pt's rhythm will be continuously monitored via telemetry. - Follows with Dr. Leach. #Urinary tract infection - Pt urine showed 1+ bacteria, 3+ leukocyte esterase, TNTC WBCs and RBCs, 3+ blood, trace ketones, and 3+ protein on 06/25/2020. - Urine culture returned today with Enterobacter cloacae and Strep agalactiae. - Patients vancomycin and cefepime was discontinued and levofloxacin 750 mg IV was started for coverage. - CT 06/10/20 shows small calculi in right kidney, may be contributing to the RBCs on urinalysis. - Pt had urology appointment but missed it. New appointment made to establish care. #Hypokalemia- resolved: - Pt has potassium of 3.6 today. - Potassium 10mEq x 4 doses administered on 06/27/2020. #Altered mental status / Acute metabolic encephalopathy - likely 2/2 infection, possibly 2/2 baseline - Pt's mental status has improved today and he is A&Ox3 today. - CT head negative on 06/25/2020. - Pt has a history of hepatic steatosis found on ultrasound. (06/10/2020). - Holding sertraline due to tardive dyskinesia-like tics of face on presentation.(frequent licking of the lips). - Consulted neurology. - ABG showed mild metabolic alkalosis yesterday #Possible nephrotic syndrome - Patient exhibits edema of b/l lower extremities and abd wall, hypoalbuminemia, proteinuria 3+ on UA. - Patient is currently receiving diuretics due to CHF exacerbation. - Nephrology is following patient and awaiting resolution of infectious etiology to understand true etiology of proteinuria. Their help is very much appreciated. #Possibly decompensated CHF exacerbation: - generalized anasarca present since admission. - some improvement of edema seen, still pitting edema +2. - He is on Furosemide at home. - BNP elevated. - ECHO 01/2020: Low/normal LV systolic function (EF 50%) / Diastolic function not evaluated (re: ravin) - Imaging with evidence of pleural effusions / cephalization. - Will check ECHO / Tele monitoring / Fluid restriction. - Pt's troponin levels are low. - Continue Lasix 40mg IV BID with holding parameters, SBP <110. Pt is placed on a sodium restricted, 2g diet at this time. #Possibly underlying NETTE: - Pt currently receiving 1LNC during the day as well now. - pt has been placed on NETTE protocol for possible need for nocturnal oxygen. - Nocturnal oximetry from 06/21/2018 showed abnormal nocturnal oximetry: pt qualifies for nocturnal oxygen supplementation. #Leukocytosis - possibly 2/2 UTI, complicated with indwelling Crowell - Pt's last hospitalization was due to UTI at which time he was treated with ceftriaxone. - Pt has a chronic indwelling catheter that was covered in feces on admission. - Pt's vital signs are currently stable and he is afebrile. Urinalysis was positive prompting further exploration of etiology. - Urine culture shows Enterobacter cloacae and Strep agalactiae. - Stopped cefepime and vancomycin for broad spectrum coverage and started levofloxacin. - WBC has decreased to 8.8 today. - Ordered repeat procalcitonin. 06/27/20 showed procalcitonin: 0.12, increased from 0.11 from 06/25/2020. #Recovering from pneumonia: - Pt's CT chest showed ground glass opacities consistent with recovering from pneumonia. - Since readings compared to his recent hospitalization show some worsening, this may be due to CHF exacerbation. - Respiratory panel negative. - SARS-CoV-2: negative - Continue IV Lasix at this time. - Antibiotic coverage started. #Lymphedema: - Pt has chronic lower extremity edema evident with chronic venous stasis. - He has been placed on a sodium-restricted diet and given compressive stockings. #Prevention of intertriginous fungal infection: - Pt has multiple intertriginous areas susceptible to fungal infections. Continue home medication: nystatin powder. DVT Prophylaxis - Will start Heparin drip VS,Fishbone, I+O VS, Fishbone, I+O Laboratory Tests 06/29/20 04:49 Vital Signs Date Time Temp Pulse Resp B/P (MAP) Pulse Ox O2 Delivery O2 Flow Rate FiO2 06/29/20 08:00 97.4 65 22 129/65 (86) 99 Room Air 06/29/20 04:00 1.0 I&O- Last 24 Hours up to 6 AM 06/29/20 06:00 Intake Total 1645 ml Output Total 3550 ml Balance -1905 ml GME ATTESTATION GME ATTESTATION My faculty preceptor for this patient encounter was physically present during the encounter and was fully available. All aspects of the patient interview, examination, medical decision making process, and medical care plan development were reviewed and approved by the faculty preceptor. The faculty preceptor is aware and concurs with the plan as stated in the body of this note and will attest to such by his/her cosignature. ATTENDING NOTE I, Pastor Hathaway MD, have independently examined this patient and performed my own physical exam, as well as reviewed the documentation and edited where necessary. I have discussed in detail with the resident / student the findings and plan of treatment as documented by the resident / student and edited their note. I agree with their findings and treatment plan and have edited their documentation. I will continue to follow the patient during this hospital stay. Shelley CUELLAR OMS-3 Jun 29, 2020 09:29 Alli Hahn DO Jun 29, 2020 10:14 PASTOR HATHAWAY MD Jun 29, 2020 19:10
[2020-06-29 10:58] LABS: HEMATOCRIT 35.1 % (42.0-52.0); HEMOGLOBIN 10.7 g/dl (13.5-17.5); MEAN CORPUSCULAR HEMOGLOBIN 29.2 pg (27.0-33.0); MEAN CORPUSCULAR HGB CONC 30.5 g/dl (32.0-36.5); MEAN CORPUSCULAR VOLUME 95.6 fl (80.0-96.0); PLATELET COUNT, AUTOMATED 149 10^3/uL (150-450); RED BLOOD COUNT 3.67 10^6/uL (4.30-6.10); WHITE BLOOD COUNT 8.5 10^3/uL (4.0-10.0)
[2020-06-29] MEDS: SLF 3 ML SYR IV SCH ×2 (14:00→20:51)
--- NOTE | 2020-06-29 15:26 | IPN ---
NEPHROLOGY PROGRESS NOTE DATE: 06/29/20 SUBJECTIVE: Mr. Mccarthy is seen this morning on his bedside. I had seen him a couple of days ago for possible nephrotic syndrome; however, he had atrial fibrillation with rapid ventricular rate. I could not see him yesterday due to suspected COVID; however, his COVID test has come back negative today. The patient has a chronic indwelling Crowell catheter with chronic UTI and a large amount of mucus in his urine. I felt that most likely his proteinuria is related to a chronic urinary tract infection. In the meantime patient is also noticed to be in congestive heart failure with chronic generalized anasarca. He is currently being diuresed. He is feeling much better today and able to have a conversation. PHYSICAL EXAMINATION: Temperature 97.4 degrees Fahrenheit, heart rate 65 per minute and respiratory rate 22 per minute. Blood pressure 129/65 mmHg and oxygen saturation 99%. Intake and output records from yesterday show a negative fluid balance of about 1.4 liters. Since admission he has about 15 liters negative fluid balance so far though I am not 100% sure about the accuracy of the records. He did weigh 185 kg on June 25 and today he is down to 166 kg. Head: Atraumatic. Neck: Supple and JVD difficult to be assessed. Heart: Sounds are irregular rhythm. Lungs: Diminished breath sounds. Abdomen: Obese and nontender. Bowel sounds are normal. Extremities: With generalized anasarca. Neurologically: He is awake and without any focal deficit today. LABORATORY DATA: Today's labs show WBC count 8.5, hemoglobin 10.7 and hematocrit 35.1. Sodium 142, potassium 3, BUN 14 and creatinine 0.76. On June 27 his total protein was 7.4 and albumin 2.6. C-reactive protein was 15.9. PROBLEMS/PLAN: 1. Proteinuria most likely related to chronic urinary tract infection: He is being treated for a UTI at present with levofloxacin and vancomycin. I am going to order a 24 hour urine for total protein though I feel strongly that his proteinuria is related to chronic infection. 2. Generalized anasarca most likely related to atrial fibrillation and chronic noncompliance with medical care: He is being diuresed and seems to be e doing well. His kidney function has been stable and I would recommend to continue diuresing him. 3. Chronic UTI and indwelling Crowell catheter: This is a chronic issue and likely not to resolve. I would recommend to consider a urology consultation for further recommendations.
[2020-06-29 19:50] LABS: BLOOD UREA NITROGEN 13 MG/DL (7-18); CALCIUM LEVEL 7.8 MG/DL (8.8-10.2); CARBON DIOXIDE LEVEL 30 MEQ/L (21-32); CHLORIDE LEVEL 104 MEQ/L (98-107); CREATININE FOR GFR 0.81 MG/DL (0.70-1.30); GLOMERULAR FILTRATION RATE > 60.0 (>49); GLUCOSE, FASTING 76 MG/DL (70-100); SODIUM LEVEL 142 MEQ/L (136-145)
[2020-06-30] VITALS (23 sets, daily range): BP systolic 97–114; BP diastolic 56–74; O2SAT 89–100
[2020-06-30] MEDS: SLF 3 ML SYR IV SCH ×3 (04:48→21:48)
[2020-06-30 08:47] LABS: HEMATOCRIT 34.6 % (42.0-52.0); HEMOGLOBIN 10.5 g/dl (13.5-17.5); MEAN CORPUSCULAR HEMOGLOBIN 29.2 pg (27.0-33.0); MEAN CORPUSCULAR HGB CONC 30.3 g/dl (32.0-36.5); MEAN CORPUSCULAR VOLUME 96.1 fl (80.0-96.0); PLATELET COUNT, AUTOMATED 140 10^3/uL (150-450); WHITE BLOOD COUNT 7.9 10^3/uL (4.0-10.0)
[2020-06-30] MEDS: DOCUSATE SODIUM 100MG CAPSULE PO SCH ×2 (08:59→20:43)
[2020-06-30] MEDS: FUROSEMIDE 40MG/4ML VIAL (J1940) IV SCH (08:59)
[2020-06-30] MEDS: LevoFLOXacin IV 750 MG in IV 1 EA IV SCH (08:59)
[2020-06-30] MEDS: METOPROLOL SUCC *XL* 25MG TAB (TopROL *XL*) PO SCH ×3 (09:00→20:56)
[2020-06-30] MEDS: DIMETHICONE 2% OINTMENT(VANICREAM) 70GM TUBE TOP SCH ×2 (09:07→20:43)
[2020-06-30 09:21] LABS: ALBUMIN 2.4 GM/DL (3.2-5.2); BLOOD UREA NITROGEN 11 MG/DL (7-18); CALCIUM LEVEL 7.4 MG/DL (8.8-10.2); CARBON DIOXIDE LEVEL 33 MEQ/L (21-32); CHLORIDE LEVEL 103 MEQ/L (98-107); GLOMERULAR FILTRATION RATE > 60.0 (>49); GLUCOSE, FASTING 95 MG/DL (70-100); POTASSIUM SERUM 3.3 MEQ/L (3.5-5.1); SODIUM LEVEL 142 MEQ/L (136-145)
[2020-06-30 09:23] LABS: ATYPICAL LYMPH 2 % (0-5); BASOPHILS 1 % (0-1); EOSINOPHILS 6 % (0-3); LYMPHOCYTES 20 % (16-44); MONOCYTES 4 % (0-5); NEUTROPHILS 67 % (28-66)
[2020-06-30 09:24] LABS: ANISOCYTOSIS 1+; PLATELET ESTIMATE DECREASED (NORMAL)
[2020-06-30] MEDS ORDERED: POTASSIUM CHLORIDE 10 MEQ SR TABLET PO ONE ×2 (10:00→21:30)
[2020-06-30] MEDS: SPIRONOLACTONE 50 MG TAB PO SCH (11:52)
[2020-06-30] MEDS: RIVAROXABAN 20 MG TAB (XARELTO) PO SCH (11:52)
--- NOTE | 2020-06-30 13:38 | IPNPDOC ---
Text Note Date of Service The patient was seen on 06/30/20. NOTE Subjective: Patient is a 65 y.o. M with a history of atrial fibrillation, CHF, depression (on Sertraline), UTI, metabolic encephalopathy, and morbid obesity who presented to the ED due to R hip pain and generalized weakness. Patient presented from home via EMS covered in dry feces. Patient was difficult to understand due to dysarthria and AMS. His baseline mental status was unknown at that time. Yesterday (06/28/2020), patients speech improved and he was alert and oriented to examination. Patient states that he is feeling better and has been able to walk to the bathroom and back with assistance. He reports no difficultly eating breakfast this morning. Denies chest pain, headache, blurry vision, abdominal pain, or leg pain at this time. Nursing staff deny any overnight events. Objective: GENERAL: Patient is alert, cooperative, and in no acute distress HEENT: NC/AT. Conjunctiva and lids normal. EOMI. Dry oral mucosa. Nares patent. NECK: No JVD. CHEST: Clear to auscultation. Diminished L basilar breath sounds. No wheezing. HEART: Regular rate and rhythm. ABDOMEN: Soft abdomen and non-tender to palpation. Distended abdomen with central abdominal hernia, panniculitis. EXTREMITY: Generalized anasarca still present to arms, legs, and abdominal wall, however less tight than previous exams. BLE edema with chronic venous stasis hyperpigmentation. Difficult to palpate pedal pulses due to edema SKIN: Macerations on L posterior thigh, erythema of medial buttocks, no open ulcerations. Onycholysis present bilateral toenails NEURO: Improved speech since admission, Patient is able to have a full conversation with me and does not stop to breath while on nasal cannula. Normal tone. Sensation intact PSYCH: A&Ox3. No visual or auditory hallucinations appreciated at this time. Assessment/Plan: #Paroxysmal atrial fibrillation with RVR with h/o atrial fibrillation: - rate-controlled today. - Continue Metoprolol 25mg BID, with holding parameters SBP<110 and HR<60. - Pt was transferred on 06/27/2020 due to PCU due to development of atrial fibrillation with RVR. - Xarelto was discontinued as an outpatient for gross hematuria. - Heparin drip was DC'd overnight due to protocol 2/2 elevated aPTT, and then started again this morning when aPTT had decreased. - Next dose was held, Heparin drip now stopped and Xarelto home dose of 20mg has been resumed. - Pt's home dose of Xarelto is 20mg daily, which is being continued today and ordered for the rest of his stay QHS. - Pt's rhythm will be continuously monitored via telemetry. - Follows with Dr. Leach. #Urinary tract infection - Pt urine showed 1+ bacteria, 3+ leukocyte esterase, TNTC WBCs and RBCs, 3+ blood, trace ketones, and 3+ protein on 06/25/2020. - Urine culture returned today with Enterobacter cloacae and Strep agalactiae. - Patients vancomycin and cefepime was discontinued and levofloxacin 750 mg IV was started for coverage. - CT 06/10/20 shows calculi in right kidney, may be contributing to the RBCs on urinalysis. - Urology consulted because the calculi may be nidus of infection and pt will continue to have UTIs. Primary care team appreciates input on care. #Hypokalemia - Pt has potassium of 3.3 today. - Potassium and spirinolactone ordered by Nephrology. - Switched furosemide to oral diuretics, Torsemide, by Nephrology. (Peripheral access difficult. Nephrology has ordered a PICC line, to be scheduled on weekday with IR). - Nephrology input is greatly appreciated at this time. #Altered mental status / Acute metabolic encephalopathy - likely 2/2 infection, possibly 2/2 baseline - Pt's mental status has improved today and he is A&Ox3 today. - CT head negative on 06/25/2020. - Pt has a history of hepatic steatosis found on ultrasound. (06/10/2020). - Holding sertraline due to tardive dyskinesia-like tics of face on presentation.(frequent licking of the lips). - Per neurology: could not send pt to hospital with MRI with and without contrast that would fit pt; Lyme Ab, MuSK Ab, ACh receptor Ab, pending; B12, and B1 ordered today. #Possible nephrotic syndrome - Patient exhibits edema of b/l lower extremities and abd wall, hypoalbuminemia, proteinuria 3+ on UA. - Patient is currently receiving diuretics due to CHF exacerbation. - Nephrology is following patient and awaiting resolution of infectious etiology to understand true etiology of proteinuria. Their help is very much appreciated. #Possibly decompensated CHF exacerbation: - generalized anasarca present since admission. - some improvement of edema seen, still pitting edema +2. - He is on Furosemide at home. - BNP elevated. - ECHO 01/2020: Low/normal LV systolic function (EF 50%) / Diastolic function not evaluated (re: ravin) - Imaging with evidence of pleural effusions / cephalization. - Will check ECHO / Tele monitoring / Fluid restriction. - Pt's troponin levels are low. - Hold Lasix 40mg IV BID (with holding parameters, SBP <110.) - Pt has been started on Torsemide by Nephrology, due to ongoing anasarca. - Pt is placed on a sodium restricted, 2g diet at this time. 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 - pt has been placed on NETTE protocol for possible need for nocturnal oxygen. - Nocturnal oximetry from 06/21/2018 showed abnormal nocturnal oximetry: pt qualifies for nocturnal oxygen supplementation. #Leukocytosis - possibly 2/2 UTI, complicated with indwelling Crowell - Pt's last hospitalization was due to UTI at which time he was treated with ceftriaxone. - Pt has a chronic indwelling catheter that was covered in feces on admission. - Pt's vital signs are currently stable and he is afebrile. Urinalysis was positive prompting further exploration of etiology. - Urine culture shows Enterobacter cloacae and Strep agalactiae. - Stopped cefepime and vancomycin for broad spectrum coverage and started levofloxacin. - WBC within normal limits. - Ordered repeat procalcitonin. 06/27/20 showed procalcitonin: 0.12, increased from 0.11 from 06/25/2020. #Recovering from pneumonia: - Pt's CT chest showed ground glass opacities consistent with recovering from pn eumonia. - Since readings compared to his recent hospitalization show some worsening, this may be due to CHF exacerbation. - Respiratory panel negative. - SARS-CoV-2: negative - Continue diuretics at this time. - Antibiotic coverage started. #Lymphedema: - Pt has chronic lower extremity edema evident with chronic venous stasis. - He has been placed on a sodium-restricted diet and given compressive stockings. #Prevention of intertriginous fungal infection: - Pt has multiple intertriginous areas susceptible to fungal infections. Continue home medication: nystatin powder. DVT Prophylaxis - Pt is on Xarelto 20mg QHS home dose for atrial fibrillation. VS,Fishbone, I+O VS, Fishbone, I+O Laboratory Tests 06/29/20 17:47 06/30/20 08:31 Vital Signs Date Time Temp Pulse Resp B/P (MAP) Pulse Ox O2 Delivery O2 Flow Rate FiO2 06/30/20 11:32 97.0 65 20 109/67 (81) 99 Nasal Cannula 2.0 I&O- Last 24 Hours up to 6 AM 06/30/20 06:00 Intake Total 900 ml Output Total 3050 ml Balance -2150 ml GME ATTESTATION GME ATTESTATION My faculty preceptor for this patient encounter was physically present during the encounter and was fully available. All aspects of the patient interview, examination, medical decision making process, and medical care plan development were reviewed and approved by the faculty preceptor. The faculty preceptor is aware and concurs with the plan as stated in the body of this note and will attest to such by his/her cosignature. ATTENDING NOTE I, Pastor Hathaway MD, have independently examined this patient and performed my own physical exam, as well as reviewed the documentation and edited where necessary. I have discussed in detail with the resident / student the findings and plan of treatment as documented by the resident / student and edited their note. I agree with their findings and treatment plan and have edited their documentation. I will continue to follow the patient during this hospital stay. Alli Hahn DO Jun 30, 2020 13:38 PASTOR HATHAWAY MD Jun 30, 2020 15:04
[2020-06-30] MEDS: MICONAZOLE 2 % POWDER (DESENEX) TOP SCH ×2 (13:40→20:44)
--- NOTE | 2020-06-30 14:53 | SMCUROLCON ---
Urology Consultation General Date of Consultation 06/30/20 Reason For Consultation This patient is seen for Generalized Weakness, recurrent urinary tract infections and right staghorn calculus History of Present Illness The patient is a 65-year-old male with a past medical history for numerous medical problems including recurrent urinary tract infections. He was recently identified to have a right staghorn calculus and urology consult was called. The patient has had numerous issues with infections and several courses of antibiotics. Despite the antibiotics, the sections returned. Review of his prior CT scans disclosed that he had a right staghorn calculus and is now questioned whether the staghorn calculus is the source of his recurrent infections. The patient is also morbidly obese and has restricted movements. He has an indwelling Crowell catheter and it is not known for how long her for what reason the catheter was originally inserted. The patient states that it was inserted a month ago but he is a very poor historian. Past Medical History Medical History Gross hematuria Encephalopathy Recurrent UTI Pneumonia A. fib Hypokalemia Fungal infections Depression Morbid obesity Decubitus ulcers Indwelling Crowell catheter Nephrotic syndrome Hypokalemia Congestive heart failure Sleep apnea Anasarca Surgical Hstory Cholecystectomy Umbilical hernia repair Social History Social History Patient lives with his girlfriend and her son. He quit smoking 4 months ago and had been smoking for 46 years. He denies alcohol or drug use. * Smoker: former Smoker Alcohol: Denies Drugs: denies Medications Current Medications Current Medications Medications (Trade) Dose Ordered Sig/Anne Route PRN Reason Start Time Stop Time Status Last Admin Dose Admin Acetaminophen (Tylenol Tab) 650 mg Q4H PRN PO PAIN OR FEVER 06/25/20 09:30 06/25/20 13:25 Cefepime HCl 1 gm/ Dextrose 50 ml @ 100 mls/hr Q12H IV 06/27/20 07:45 06/27/20 08:46 DC Cefepime HCl 2 gm/ Dextrose 50 ml @ 100 mls/hr Q8H IV 06/27/20 09:00 06/27/20 20:58 DC 06/27/20 20:53 Cefepime HCl 2 gm/ Dextrose 50 ml @ 100 mls/hr Q8H IV 06/28/20 05:00 06/29/20 06:49 DC 06/29/20 05:48 Ceftriaxone Sodium 1 gm/ Dextrose 50 ml @ 100 mls/hr Q24H IV 06/25/20 12:00 06/27/20 07:55 DC 06/26/20 12:22 Digoxin (Lanoxin) 0.25 mg STAT STAT IV 06/27/20 14:21 06/27/20 14:22 DC Dimethicone (Vanicream Ointment) to bilateral lo... BID TOP 06/26/20 09:00 06/30/20 09:07 Docusate Sodium (Colace) 100 mg BID PO 06/25/20 09:00 06/30/20 08:59 Furosemide (LASIX injection) 40 mg BID@,17 IV 06/25/20 09:00 06/30/20 10:59 DC 06/30/20 08:59 Heparin Sodium (Porcine) (Heparin) ASDIRECTED PRN IV SEE LABEL COMMENTS 06/29/20 09:45 Cancel Heparin Sodium (Porcine) (Heparin) 7,500 units Q8H SQ 06/25/20 14:00 06/29/20 09:42 DC 06/29/20 05:48 Heparin Sodium (Porcine) 92378 units/IV Miscellaneous Supplies 250 ml @ 0 mls/hr Q0M IV 06/29/20 09:38 06/30/20 10:19 DC 06/29/20 11:44 Home Med (Med Rec Complete!) ASDIRECTED XX 06/25/20 07:00 06/25/20 06:56 DC Levofloxacin 750 mg/IV Miscellaneous Supplies 150 ml @ 100 mls/hr Q24H IV 06/29/20 08:00 06/30/20 08:59 Lorazepam (Ativan) 1 mg Q15MP PRN IV ANXIETY/AGITATION 06/27/20 12:30 06/30/20 00:00 Metoprolol Succinate (TopROL XL) 25 mg BID PO 06/28/20 21:00 06/29/20 09:29 Metoprolol Succinate (TopROL XL) 50 mg BID PO 06/27/20 09:00 06/28/20 15:18 DC 06/27/20 09:07 Metoprolol Succinate (TopROL XL) 50 mg QHS PO 06/25/20 21:00 06/27/20 08:40 DC 06/26/20 21:01 Metoprolol Tartrate (Lopressor) 5 mg STAT STAT IV 06/27/20 11:41 06/27/20 11:42 DC 06/27/20 12:02 Miconazole Nitrate (Lotrimin Af 2%) Apply to fungal rash... BID TOP 06/30/20 13:00 06/30/20 13:40 Non-Formulary Medication (Heparin Iv Rate Change Documentation ml/ Hr) ASDIRECTED XX 06/29/20 09:45 06/30/20 10:19 DC 06/29/20 20:35 Nystatin (Mycostatin Powder, Nystop) 1 dose BIDP PRN TOP RASH 06/28/20 13:15 06/30/20 11:08 DC Nystatin (Mycostatin Powder, Nystop) 1 dose TID PRN TOP RASH 06/25/20 09:30 06/30/20 11:08 DC 06/25/20 23:45 Potassium Chloride 10 meq/ IV Miscellaneous Supplies 100 ml @ 100 mls/hr Q1H IV 06/27/20 08:00 06/27/20 11:59 DC 06/27/20 09:09 Potassium Chloride 10 meq/ IV Miscellaneous Supplies 100 ml @ 100 mls/hr Q1H IV 06/27/20 16:00 06/27/20 18:59 DC 06/27/20 19:01 Rivaroxaban (Xarelto) 20 mg QHS PO 06/30/20 12:00 06/30/20 11:52 Sodium Chloride (Saline Lock Flush) 2 ml ASDIRECTED PRN IV SEE LABEL COMMENTS 06/29/20 09:30 Sodium Chloride (Saline Lock Flush) 2 ml SLF IV 06/29/20 14:00 06/30/20 13:40 Spironolactone (Aldactone) 50 mg DAILY PO 06/30/20 11:00 06/30/20 11:52 Torsemide (Demadex) 40 mg BID@09,17 PO 06/30/20 17:00 Vancomycin HCl 750 mg/IV Miscellaneous Supplies 1 each/ Dextrose 275 ml @ 275 mls/hr Q12H IV 06/27/20 07:45 06/27/20 08:58 DC Vancomycin HCl 1000 mg/IV Miscellaneous Supplies 1 each/ Dextrose 270 ml @ 270 mls/hr Q24H IV 06/28/20 21:00 06/29/20 06:49 DC 06/28/20 21:23 Vancomycin HCl 1000 mg/IV Miscellaneous Supplies 1 each/ Dextrose 270 ml @ 270 mls/hr Q24H IV 06/28/20 22:00 06/29/20 06:49 DC 06/28/20 23:08 Vancomycin HCl 1000 mg/IV Miscellaneous Supplies 1 each/ Dextrose 270 ml @ 270 mls/hr Q8H IV 06/27/20 10:00 06/27/20 22:10 DC 06/27/20 21:43 Vancomycin HCl 1000 mg/IV Miscellaneous Supplies 1 each/ Dextrose 270 ml @ 270 mls/hr Q8H IV 06/28/20 06:00 06/28/20 14:27 DC 06/28/20 05:55 Allergies Allergies: Coded Allergies: No Known Allergies (Verified , 07/12/07) Review of Systems General: Reports: Normal Appetite; Denies: Fatigue, Malaise Constitutional: Denies: Fever, Chills, Sweats, Weakness, Malaise Eyes: Denies: Pain, Vision change ENT: Denies: Head Aches, Sore Throat, Epistaxis Skin: Reports: Bruising; Denies: Rash, Lesions, Breakdown, Nail Changes Pulmonary: Reports: Dyspnea Cardiovascular: Denies Chest Pain, Denies Palpitations Gastrointestinal: Denies: Nausea, Vomiting, Abdominal Pain Genitourinary: Reports: Retention Hematologic: Denies: Bruising, Bleeding Excessively Endocrine: Denies: Polydipsia, Polyphagia, Polyuria Musculoskeletal: Reports: Muscle Pain; Denies: Neck Pain, Back Pain Neurological: Denies: Weakness, Numbness, Incoordination, Change in Speech Psych: Reports: Memory Issues Physical Examination General Exam: Cooperative (no acute distress, obese) EYE EXAM: PERRLA, Conjunctiva & lids normal, EOMI; No: Sclera icteric ENT EXAM: Atraumatic, Mucous membr. moist/pink, Pharynx Normal Neck Exam: Supple; No: JVD, thyromegaly Chest Exam: Clear to auscultation, Normal air movement Heart Exam: Rate Normal, Regular Rhythm, Normal S1, Normal S2; No: Murmurs, Rubs Abdomen Exam: Normal Bowel Sounds, Soft; No: Tenderness, Hepatospenomegaly Male Exam Penis is severely retracted and has an indwelling Crowell catheter. Scrotum testicles epididymides and perineum are normal. Rectal examination cannot be performed because the patient is immobile Extremity Exam: Swelling Neuro Exam: Normal Gait, Normal Speech, Cranial Nerves 3-12 NL, Reflexes 2+ Psych Exam: Mental status NL, Mood NL, Oriented x 3 Vital Signs/I&O Vital Signs Date Time Temp Pulse Resp B/P (MAP) Pulse Ox O2 Delivery O2 Flow Rate FiO2 06/30/20 11:32 97.0 65 20 109/67 (81) 99 Nasal Cannula 2.0 I&O- Last 24 Hours up to 6 AM 06/30/20 05:59 Intake Total 1100 ml Output Total 3250 ml Balance -2150 ml Laboratory Data 24H Labs Laboratory Tests 2 06/29/20 17:47: Activated Partial Thromboplast Time 164.7*H, Anion Gap 8, Glomerular Filtration Rate > 60.0, Calcium Level 7.8L 06/30/20 02:30: Activated Partial Thromboplast Time 104.5H 06/30/20 08:31: Activated Partial Thromboplast Time 77.0H, Anion Gap 6L, Glomerular Filtration Rate > 60.0, Calcium Level 7.4L, Neutrophils (%) (Auto) , Nucleated Red Blood Cells % (auto) 0.0, Neutrophils 67H, Lymphocytes (Manual) 20, Monocytes (Manual) 4, Eosinophils (Manual) 6H, Basophils (Manual) 1, Atypical Lymphocytes 2, Anisocytosis 1+, Platelet Estimate DECREASED, Magnesium Level 2.0, Albumin 2.4L 06/30/20 13:53: CBC/BMP Laboratory Tests 06/29/20 17:47 06/30/20 08:31 Microbiology Microbiology 06/28/20 Respiratory Virus Panel (PCR) (ANATOLIY) - Final, Complete 06/27/20 Urine Culture - Final, Complete Enterobacter Cloacae Cre 06/25/20 Blood Culture - Final, Complete NO GROWTH AFTER 5 DAYS 06/25/20 Blood Culture - Final, Complete NO GROWTH AFTER 5 DAYS 06/25/20 Urine Culture - Final, Complete Enterobacter Cloacae Cre Strep Agalactiae Group B Assessment Review of the patient's prior scans show the patient had a staghorn dating back at least to June 2018. It does not seem to have increased in size since then. He has no pain associated with the stone and it is certainly possible that the stone could be the source of the patient's recurrent infections, but he also has other perhaps even more likely reasons for the infections including his indwelling Crowell catheter and lack of personal care. When he came to the emergency room his entire perineum and the penis and catheter area were taken and dry feces. The staghorn calculus will certainly need to be addressed and most likely treatment will be PCNL. I'll discuss this with Dr. Live and see about scheduling the patient. Because of the patient's size, a have to be treated in [place]. Plan Patient will need a PCNL. This will be discussed with Dr. Live as to when and where the procedure can be performed. Time Spent on Consult: Time Spent / Consult (Minutes): 75 FLAQUITA ZEPEDA MD Jun 30, 2020 14:45
[2020-06-30 15:08] LABS: ACETYLCHOLINE RCPTOR BINDING A 0.11 nmol/L (0.00-0.24); Lyme Disease IgG/IgM Antibodie <0.91 ISR (0.00-0.90); Lyme Disease IgM Ab Quantitati <0.80 index (0.00-0.79)
[2020-06-30] MEDS: TORSEMIDE 20 MG TAB PO SCH (17:13)
[2020-06-30 19:04] LABS: URINE TOTAL PROTEIN 17.4 MG/DL (0-12)
[2020-06-30 19:10] LABS: TOTAL PROTEIN 24 HOUR URINE 948.3 MG/24HR (50-150)
[2020-07-01] VITALS (17 sets, daily range): BP systolic 100–114; BP diastolic 57–66; O2SAT 93–98
[2020-07-01 00:32] LABS: BLOOD UREA NITROGEN 11 MG/DL (7-18); CALCIUM LEVEL 7.9 MG/DL (8.8-10.2); CARBON DIOXIDE LEVEL 36 MEQ/L (21-32); CHLORIDE LEVEL 100 MEQ/L (98-107); CREATININE FOR GFR 0.89 MG/DL (0.70-1.30); GLOMERULAR FILTRATION RATE > 60.0 (>49); GLUCOSE, FASTING 97 MG/DL (70-100); POTASSIUM SERUM 3.6 MEQ/L (3.5-5.1); SODIUM LEVEL 140 MEQ/L (136-145)
[2020-07-01] MEDS: SLF 3 ML SYR IV SCH ×3 (04:49→22:45)
[2020-07-01 05:13] LABS: BASO # 0.1 10^3/uL (0.0-0.2); BASO % 0.6 % (0.0-1.0); EOS # 0.6 10^3/uL (0.0-0.5); EOS % 6.3 % (0.0-3.0); HEMATOCRIT 34.6 % (42.0-52.0); HEMOGLOBIN 10.4 g/dl (13.5-17.5); LYMPH # 1.5 10^3/uL (1.5-5.0); LYMPH % 16.4 % (24.0-44.0); MEAN CORPUSCULAR HEMOGLOBIN 28.4 pg (27.0-33.0); MEAN CORPUSCULAR HGB CONC 30.1 g/dl (32.0-36.5); MEAN CORPUSCULAR VOLUME 94.5 fl (80.0-96.0); MONO # 0.9 10^3/uL (0.0-0.8); MONO % 9.4 % (2.0-8.0); NEUTROPHILS % 65.8 % (36.0-66.0); PLATELET COUNT, AUTOMATED 158 10^3/uL (150-450); RED BLOOD COUNT 3.66 10^6/uL (4.30-6.10); WHITE BLOOD COUNT 9.1 10^3/uL (4.0-10.0)
[2020-07-01 05:26] LABS: INR 1.91; PROTHROMBIN TIME 22.3 SECONDS (12.5-14.3)
[2020-07-01 05:34] LABS: BLOOD UREA NITROGEN 12 MG/DL (7-18); CALCIUM LEVEL 7.2 MG/DL (8.8-10.2); CARBON DIOXIDE LEVEL 35 MEQ/L (21-32); CHLORIDE LEVEL 100 MEQ/L (98-107); COMPLEMENT C3 107 MG/DL (90-180); COMPLEMENT C4 19 MG/DL (10-40); CREATININE FOR GFR 0.82 MG/DL (0.70-1.30); GLOMERULAR FILTRATION RATE > 60.0 (>49); GLUCOSE, FASTING 90 MG/DL (70-100); POTASSIUM SERUM 3.7 MEQ/L (3.5-5.1); SODIUM LEVEL 141 MEQ/L (136-145); TOTAL PROTEIN 7.4 GM/DL (6.4-8.2)
[2020-07-01] MEDS: LevoFLOXacin IV 750 MG in IV 1 EA IV SCH (08:52)
[2020-07-01] MEDS: TORSEMIDE 20 MG TAB PO SCH ×2 (08:53→16:10)
[2020-07-01] MEDS: DOCUSATE SODIUM 100MG CAPSULE PO SCH ×2 (08:53→20:19)
[2020-07-01] MEDS: SPIRONOLACTONE 50 MG TAB PO SCH ×2 (08:53→20:19)
[2020-07-01] MEDS: MICONAZOLE 2 % POWDER (DESENEX) TOP SCH ×2 (08:54→20:20)
[2020-07-01] MEDS: DIMETHICONE 2% OINTMENT(VANICREAM) 70GM TUBE TOP SCH ×2 (08:54→20:20)
[2020-07-01] MEDS: METOPROLOL SUCC *XL* 25MG TAB (TopROL *XL*) PO SCH ×2 (08:55→20:19)
[2020-07-01] MEDS ORDERED: POTASSIUM CHLORIDE 10 MEQ SR TABLET PO ONE ×2 (09:00→16:00)
--- NOTE | 2020-07-01 12:44 | IPN ---
PROGRESS NOTE DATE: 07/01/2020 SUBJECTIVE: The patient was seen and examined at the bedside today morning. He is afebrile, creatinine and BUN stable. His blood pressures are soft running in low 100s. However, he is responding very well to the oral diuretics. He made 6.8 liters of urine yesterday and despite that his renal function is stable. He reports that his edema is slowly getting better now and his breathing is also improving. OBJECTIVE: Vital signs: Temperature is 96.8 degrees Fahrenheit, blood pressure 110/66, pulse is 76, respiratory rate of 18, saturating 99% on room air. Intake and output: Urine output recorded as 6.8 liters yesterday and 1.4 liters so far today since overnight. Weight in the bed scale is 159.2 kg, which is slowly decreasing. PHYSICAL EXAMINATION: The patient is awake, alert, oriented x3, morbidly obese, lying in bed in no apparent distress. Head and neck examination: Extraocular muscles are intact. Pupils equally round and reactive to light. Mucous membranes are moist. Neck is supple. He has moderately elevated jugular venous distention (JVD). Cardiovascular: S1, S2, regular rate. 3+ edema of the bilateral lower extremities. Respiratory: Mildly decreased breath sounds at the bases, otherwise no active rales or rhonchi. Abdomen: Distended. He has significant abdominal wall edema. I could not appreciate any organomegaly because of significant edema in the abdominal wall. Genitourinary: He has an indwelling Crowell catheter. Musculoskeletal: He has chronic venous stasis changes of bilateral lower extremities and he has edema starting from his feet all the way up to his thighs and gluteal region. SPECIAL DELIVERY CLERK: No focal deficit. Power is 5/5 in bilateral upper extremities. LABORATORY REVIEW: Complete blood count (CBC) showed a WBC 9.1, hemoglobin is 10.4, platelets are 158. INR is 1.9. Basic metabolic panel (BMP) showed sodium 141, potassium 3.7, chloride 100, bicarbonate 35, BUN 12, creatinine is 0.8, calcium is 7.2, magnesium is 2. Immunology and all autoimmune serology are pending so far. CURRENT INPATIENT MEDICATIONS: The patient's medications are all reviewed by myself. The patient's spironolactone dose has been increased to 50 mg by mouth twice a day. He continues to be on torsemide 40 mg by mouth twice a day. He was given a dose of potassium chloride 4 mEq in the morning. No other significant change in the medications. ASSESSMENT AND PLAN: 1. Generalized anasarca. The patient has significant volume overload. However, he is responding very well to the current diuretic regimen. Spironolactone has been increased because of persistent hypokalemia requiring potassium supplementation. The rest of the diuretic regimen will be adjusted according to his volume status tomorrow morning. 2. Proteinuria. The patient has subnephrotic range proteinuria. He is also being treated for urinary tract infection (UTI). At this time, he needs to be treated for anasarca. He is not a candidate for immunosuppression, steroid or renal biopsy at this time because of his morbid obesity. 3. Urinary tract infection and indwelling Crowell catheter. Continue IV Levaquin at this time. 4. Large staghorn calculus on the right side. The patient was seen by urology and he needs percutaneous nephrolithotomy once he is more stable. 5. Hypokalemia. It is better today as compared with yesterday. Spironolactone dose has been increased and he was also given a dose of potassium chloride orally. 6. Hypocalcemia. The patient has hypoalbuminemia as well. However, he is aggressively being diurese. I would give him a dose of IV calcium gluconate. 7. Atrial fibrillation. Heart rate is controlled right now. He has been started on Xarelto for anticoagulation.
--- NOTE | 2020-07-01 13:29 | IPNPDOC ---
Subjective Review oF Systems Chief Complaint The patient is a 65-year-old male admitted with a reason for visit of Generalized Weakness. General: Reports: Normal Appetite; Denies: Fatigue, Malaise Constitutional: Denies: Fever, Chills, Sweats, Weakness, Malaise Eyes: Denies: Pain, Vision change ENT: Denies: Head Aches, Sore Throat, Epistaxis Skin: Denies: Rash, Lesions, Breakdown, Nail Changes Pulmonary: Denies: Dyspnea, Cough Cardiovascular: Denies Chest Pain, Denies Palpitations Gastrointestinal: Denies: Nausea, Vomiting, Abdominal Pain Genitourinary: Denies: Dysuria, Frequency, Incontinence, Hematuria Musculoskeletal: Denies: Neck Pain, Back Pain Objective Physical Examination Heart Exam: Positive: Bradycardic, Irregular Rhythm, Normal S1, Normal S2; Negative: Gallops, Murmurs, Rubs Other physical findings Pt is lying comfortably in bed. No complaints. He is tolerating his mccarthy well and draining large amounts of clear urine. Vital Signs/I&O Vital Signs Date Time Temp Pulse Resp B/P (MAP) Pulse Ox O2 Delivery O2 Flow Rate FiO2 07/01/20 11:21 96.8 76 18 110/66 (81) 99 Room Air 07/01/20 07:07 2.0 I&O- Last 24 Hours up to 6 AM 07/01/20 06:00 Intake Total 1230 ml Output Total 7875 ml Balance -6645 ml Laboratory Data Labs 24H Laboratory Tests 2 06/30/20 13:53: 06/30/20 23:52: Anion Gap 4L, Glomerular Filtration Rate > 60.0, Calcium Level 7.9L 07/01/20 04:48: Anion Gap 6L, Glomerular Filtration Rate > 60.0, Calcium Level 7.2L, Immature Granulocyte % (Auto) 1.5, Neutrophils (%) (Auto) 65.8, Lymphocytes (%) (Auto) 16.4L, Monocytes (%) (Auto) 9.4H, Eosinophils (%) (Auto) 6.3H, Basophils (%) (Auto) 0.6, Neutrophils # (Auto) 6.0, Lymphocytes # (Auto) 1.5, Monocytes # (Auto) 0.9H, Eosinophils # (Auto) 0.6H, Basophils # (Auto) 0.1, Nucleated Red Blood Cells % (auto) 0.0, Prothrombin Time 22.3H, Prothromb Time International Ratio 1.91, Magnesium Level 2.0, Total Protein (PEP) 7.4, Complement C3 107, Complement C4 19 CBC/BMP Laboratory Tests 06/30/20 23:52 07/01/20 04:48 Microbiology Microbiology 06/28/20 Respiratory Virus Panel (PCR) (ANATOLIY) - Final, Complete 06/27/20 Urine Culture - Final, Complete Enterobacter Cloacae Cre 06/25/20 Blood Culture - Final, Complete NO GROWTH AFTER 5 DAYS 06/25/20 Blood Culture - Final, Complete NO GROWTH AFTER 5 DAYS 06/25/20 Urine Culture - Final, Complete Enterobacter Cloacae Cre Strep Agalactiae Group B Assessment/Plan Date Seen The patient was seen on 07/01/20. Plan/VTE VTE Prophylaxis Ordered?: Yes (Heparin SQ 7500 units) Plan I will discuss case with Dr. Calos raymond concerning his PCNL. This treatment will have to wait until patient is medically stable and infection has cleared. Diet: Continue Current Activity: Continue Current FLAQUITA ZEPEDA MD Jul 01, 2020 13:29
--- NOTE | 2020-07-01 14:57 | IPNPDOC ---
Date Seen The patient was seen on 07/01/20. Progress Note SUBJECTIVE: Patient was seen and examined at bedside this morning. He is alert and oriented 3. No acute events overnight. He denies any chest pain, seizures of breath, nausea, vomiting, diarrhea, abdominal pain, subjective fevers and chills. PT is recommending him to go to subacute rehabilitation. However, patient feels that he will do well at home with home services. PT will continue to by patient and the next day. Plan from urology for a PCN L however, this will be discussed with Dr. Live on 07/02/70, as the patient may require outpatient referral to [facility] in [place] is revealed that instrumentation. The more appropriate there. Patient seems to be understanding. Ongoin diuresis with PO diuretics. UOP 6.8L yesterday. Edema has improved and breathing is better. Weight is decreasing. OBJECTIVE PHYSICAL EXAMINATION: VITAL SIGNS: please see below General: NAD, comfortable, obese HEENT: PERRLA, EOMI, sclerae clear Neck: supple, normal ROM, no JVD Respiratory: lungs CTAB, no wheeze, no rales, no crackles CVS: RRR, normal S1, S2, no murmurs Abdo: Obese abdomen. Soft, nontender to palpation. Central abdominal hernia, reducible, nontender. Diverticula in his lower abdomen. Extremities: Edema 1+, 2+. Bilateral edema present with chronic venous stasis hyperpigmentation. Skin: Macerations on L posterior thigh, erythema of medial buttocks, no open ulcerations. Onycholysis present bilateral toenails Neuro: no focal neuro deficits, moving all 4 extremities, CN2-12 intact. Strength 5/5 in all 4 extremities. No nystagmus. LABORATORY DATA, IMAGING STUDIES, MICROBIOLOGY: Please see below. DVT prophylaxis ordered?:AC with xarelto. ASSESSMENT AND PLAN: 45 yo w hx of afib (on xarelto), CHF, depression, recurrent UTIs, metabolic encephalopathy, R renal nephrolithiasis, admitted for AMS and metabolic encephalopathy secondary to UTI. PROBLEMS: Paroxismal afib - xarelto was resumed (previously held for hematuria, now stable - rate control with metoprolol 25 mg BID with parameters - primary backer up is Dr. Leach, outpatient follow up UTI - hx of chronic/recurrent UTI - s/p vanc and cef - urine culture (06/27 and 06/25) positive for enterobacter and strep agalactiae - s/p 2 days vanc, cefepime - transitioned to IV levaquin, will switch to PO (now Day 3) - UTIs likely related to R renal staghorn calculus R staghorn calculus - urology consulted - patient will likely require PCNL, will coordinate with Dr. Hawkins and Dr. Live - may require operation to be performed in [place] due to larger access to specialty instruments due to body habitus Acute metabolic encephalopathy - Pt's mental status has improved today and he is A&Ox3 today. - CT head negative on 06/25/2020. - Pt has a history of hepatic steatosis found on ultrasound. (06/10/2020). - Holding sertraline due to tardive dyskinesia-like tics of face on presentation.(frequent licking of the lips). - Per neurology: could not send pt to hospital with MRI with and without contrast that would fit pt; Lyme Ab, MuSK Ab, ACh receptor Ab, pending; B12, and B1 ordered today. Hypokalemia: - replaced, monitor BMP daily - spironolactone increase Hypocalcemia - s/p IV calcium gluconate Generalized anasarca - improved - nephrology consulted for assistance in diuresis - Spironolactone has been increased. Torsemide - follow up 2D echo - negative trops - now on torsemide by nephro for anasarca - 2g sodium restricted diet, 2L fluid restriction Subnephrotic range proteinuria - nephrology consulted, recs appreciated - ongoing treatment for anasarca - not a candidate for immunosuppression, steroids or renal biopsy due to morbid obesity NETTE/obesity hypoventilation - nocturnal O2 pen Chronic lymphedema - chronic venous stasis changes - check venous duplex to assess for DVT - elevated foot of bed Intertrigo/panniculitis - c/w nystatin powder Dispo: PT recommending rehab on DC. Patient wishes to go hoe with services, but PT will re-eval on 07/02/20 and assess level of progress. VS, I&O, 24H, Fishbone Vital Signs/I&O Vital Signs Date Time Temp Pulse Resp B/P (MAP) Pulse Ox O2 Delivery O2 Flow Rate FiO2 07/01/20 11:21 96.8 76 18 110/66 (81) 99 Room Air 07/01/20 07:07 2.0 I&O- Last 24 Hours up to 6 AM 07/01/20 06:00 Intake Total 1230 ml Output Total 7875 ml Balance -6645 ml Laboratory Data 24H LABS Laboratory Tests 2 06/30/20 23:52: Anion Gap 4L, Glomerular Filtration Rate > 60.0, Calcium Level 7.9L 07/01/20 04:48: Anion Gap 6L, Glomerular Filtration Rate > 60.0, Calcium Level 7.2L, Immature Granulocyte % (Auto) 1.5, Neutrophils (%) (Auto) 65.8, Lymphocytes (%) (Auto) 16.4L, Monocytes (%) (Auto) 9.4H, Eosinophils (%) (Auto) 6.3H, Basophils (%) (Auto) 0.6, Neutrophils # (Auto) 6.0, Lymphocytes # (Auto) 1.5, Monocytes # (Auto) 0.9H, Eosinophils # (Auto) 0.6H, Basophils # (Auto) 0.1, Nucleated Red Blood Cells % (auto) 0.0, Prothrombin Time 22.3H, Prothromb Time International R atio 1.91, Magnesium Level 2.0, Total Protein (PEP) 7.4, Complement C3 107, Complement C4 19 CBC/BMP Laboratory Tests 06/30/20 23:52 07/01/20 04:48 Microbiology Microbiology 06/28/20 Respiratory Virus Panel (PCR) (ANATOLIY) - Final, Complete 06/27/20 Urine Culture - Final, Complete Enterobacter Cloacae Cre 06/25/20 Blood Culture - Final, Complete NO GROWTH AFTER 5 DAYS 06/25/20 Blood Culture - Final, Complete NO GROWTH AFTER 5 DAYS 06/25/20 Urine Culture - Final, Complete Enterobacter Cloacae Cre Strep Agalactiae Group B MITESH MALDONADO MD Jul 01, 2020 14:57
[2020-07-01] MEDS: RIVAROXABAN 20 MG TAB (XARELTO) PO SCH (20:19)
[2020-07-02] MEDS: SLF 3 ML SYR IV SCH ×3 (05:20→22:59)
[2020-07-02] MEDS: LevoFLOXacin 750 MG TABLET PO SCH (05:20)
[2020-07-02 06:00] VITALS: BP 121/64
[2020-07-02 06:17] LABS: BASO # 0.1 10^3/uL (0.0-0.2); BASO % 0.8 % (0.0-1.0); EOS # 0.5 10^3/uL (0.0-0.5); EOS % 6.3 % (0.0-3.0); HEMATOCRIT 38.4 % (42.0-52.0); HEMOGLOBIN 11.6 g/dl (13.5-17.5); LYMPH # 1.5 10^3/uL (1.5-5.0); MEAN CORPUSCULAR HEMOGLOBIN 28.3 pg (27.0-33.0); MEAN CORPUSCULAR HGB CONC 30.2 g/dl (32.0-36.5); MEAN CORPUSCULAR VOLUME 93.7 fl (80.0-96.0); MONO # 0.8 10^3/uL (0.0-0.8); MONO % 8.8 % (2.0-8.0); NEUTROPHILS # 5.6 10^3/uL (1.5-8.5); NEUTROPHILS % 65.5 % (36.0-66.0); PLATELET COUNT, AUTOMATED 166 10^3/uL (150-450); WHITE BLOOD COUNT 8.6 10^3/uL (4.0-10.0)
[2020-07-02 06:30] VITALS: O2SAT 93
[2020-07-02 06:30] LABS: INR 2.46; PROTHROMBIN TIME 27.2 SECONDS (12.5-14.3)
[2020-07-02 06:40] LABS: BLOOD UREA NITROGEN 13 MG/DL (7-18); CARBON DIOXIDE LEVEL 38 MEQ/L (21-32); CHLORIDE LEVEL 94 MEQ/L (98-107); CREATININE FOR GFR 0.84 MG/DL (0.70-1.30); GLOMERULAR FILTRATION RATE > 60.0 (>49); GLUCOSE, FASTING 99 MG/DL (70-100); MAGNESIUM LEVEL 2.1 MG/DL (1.8-2.4); POTASSIUM SERUM 3.9 MEQ/L (3.5-5.1); SODIUM LEVEL 136 MEQ/L (136-145)
[2020-07-02] MEDS: DOCUSATE SODIUM 100MG CAPSULE PO SCH ×2 (08:33→20:30)
[2020-07-02] MEDS: SPIRONOLACTONE 50 MG TAB PO SCH ×2 (08:33→20:30)
[2020-07-02] MEDS: TORSEMIDE 20 MG TAB PO SCH ×2 (08:33→16:44)
[2020-07-02] MEDS: DIMETHICONE 2% OINTMENT(VANICREAM) 70GM TUBE TOP SCH ×2 (08:34→20:32)
[2020-07-02] MEDS: MICONAZOLE 2 % POWDER (DESENEX) TOP SCH ×2 (08:34→20:31)
[2020-07-02] MEDS: METOPROLOL SUCC *XL* 25MG TAB (TopROL *XL*) PO SCH ×2 (08:34→20:31)
--- NOTE | 2020-07-02 09:09 | ECHO ---
DATE OF PROCEDURE: 06/27/2020 Age: 65 Gender: Male REFERRING PROVIDER: Geronimo Hahn DO PATIENT LOCATION: Room 4228 REASON FOR STUDY: Edema. 2D MEASUREMENTS: IVS 1.2 cm LV 5.2 cm LVPW 0.9 cm LA 4.5 cm Aorta 3.2 cm RV 2.2 cm IVC 3.3 cm DOPPLER MEASUREMENT Peak velocity across the aortic valve 1.9 m/s Peak velocity across the LVOT 1.5 m/s Mitral E 1.0 Mitral A 1.0 with a ratio of 1.0 2D COMMENTS: 1. Technically limited study due to poor acoustic window. 2. Normal left ventricular size, wall thickness, and normal global left ventricular systolic function. The estimated left ventricular systolic ejection fraction is 60% to 65%. 3. Mildly enlarged left atrium. The right atrium appeared to be also mildly enlarged. The right ventricular free wall was not well visualized. 4. The atrial septum appeared to be normal without evidence of defect or shunt. 5. Normal aortic root. 6. No pericardial effusion seen. 7. Mildly calcified aortic valve; leaflet excursion appeared to be normal. Mildly calcified mitral annulus with normal anterior mitral valve leaflet motion. Normal tricuspid valve. The pulmonic valve and proximal pulmonary artery branches were not well visualized. 8. The inferior vena cava is dilated; central venous pressure is most likely limited. DOPPLER: It detects trace mitral regurgitation. Trace aortic regurgitation noted in limited views. Assessment of the left ventricular diastolic function was non- conclusive. IMPRESSION: 1. Normal global left ventricular systolic function. Assessment of the left ventricular diastolic function was non-diagnostic. 2. Mildly enlarged left atrium with mitral annular calcification, but only trace mitral regurgitation. 3. Aortic valve sclerosis with trivial aortic stenosis and probably trace aortic regurgitation. 4. The right atrium appeared to be mildly enlarged without evidence of significant tricuspid regurgitation or stenosis. 5. There are features of elevated central venous pressure; the inferior vena cava was mildly enlarged. 6. This study was technically limited due to poor acoustic window. [facility]
[2020-07-02 09:35] LABS: HEMATOCRIT 38.6 % (42.0-52.0); HEMOGLOBIN 11.7 g/dl (13.5-17.5); MEAN CORPUSCULAR HEMOGLOBIN 28.5 pg (27.0-33.0); MEAN CORPUSCULAR HGB CONC 30.3 g/dl (32.0-36.5); MEAN CORPUSCULAR VOLUME 94.1 fl (80.0-96.0); PLATELET COUNT, AUTOMATED 176 10^3/uL (150-450); WHITE BLOOD COUNT 9.6 10^3/uL (4.0-10.0)
--- NOTE | 2020-07-02 09:38 | IPN ---
NEPHROLOGY PROGRESS NOTE DATE: 06/30/2020 SUBJECTIVE: Patient was seen and examined at the bedside today morning. Patient is afebrile. He still reports persistent lower extremity edema and abdominal wall edema. He continues to be on I.V. Lasix. He is diuresing well. Renal function is stable. patient was on I.V. Heparin drip, which has been stopped now. He has no good I.V. access available at this time. 24-hour urine was being collected when I saw the patient in the morning. OBJECTIVE: VITAL SIGNS: Temperature 96.8 degrees Fahrenheit, blood pressure 109/63, pulse 71, respiratory rate 20, saturating 96% on nasal cannula at 2 liters. INTAKE AND OUTPUT: Urine output recorded as 3.7 liters yesterday, and about 2 liters by the time I saw him in the morning. Weight in the bed scale is not available. PHYSICAL EXAMINATION: GENERAL: Patient is awake, alert and oriented x3, morbidly obese, lying in bed. HEAD/NECK: Extraocular muscles intact. Pupils equally round and reactive to light. Mucous membranes are moist. Neck is supple. Moderately elevated JVD. CARDIOVASCULAR: S1, S2, regular rate. 3+ edema of the bilateral lower extremities. RESPIRATORY: Mildly decreased breath sounds at bases, otherwise no active rales or rhonchi. ABDOMEN: Morbidly obese. Significant abdominal wall edema, which is very dense. GENITOURINARY: He has an indwelling Crowell catheter. He has a fungal rash in the groin. MUSCULOSKELETAL: Chronic venous stasis changes in the bilateral lower extremities was noted. DEMURRAGE CLERK: No focal deficit. Power is 5/5 in bilateral upper extremities. LABORATORY DATA: CBC showed WBC 7.9, hemoglobin 10.5, platelets 140,000. 24-hour urine protein 946 mg. BMP done today morning showed sodium 142, potassium 3.3, chloride 103, bicarb 33, BUN 11, creatinine 0.8. Calcium 7.4. Albumin 2.4. CURRENT INPATIENT MEDICATIONS: Patient's medications were all reviewed by myself. His Heparin drip has been stopped. He continues to be on I.V. Levaquin. He was getting Lasix 40 mg I.V. every 12 hours. I have stopped the Lasix and started the patient on Torsemide 40 mg p.o. twice a day. I have also started him on Spironolactone 50 mg p.o. daily. Patient was given a dose of potassium chloride 40 mEq times one dose in the morning. I have also stopped his Nystatin and started the patient on Miconazole powder. ASSESSMENT AND PLAN: 1. Generalized anasarca: It is secondary to decompensated CHF, 24-hour urine protein is subnephrotic. He does not have good IV access. Diuretics have been changed to oral. He is diuresing very well. Continue to monitor intake and output and continue fluid restriction at this time. 2. Proteinuria: As mentioned above, patient has a urinary tract infection, proteinuria is less than 1 gram. There is no need of steroid administration or renal biopsy at this time. Renal function is stable. Continue the diuretics at this time. 3. Urinary tract infection and indwelling Crowell catheter: Patient is currently on I.V. Levaquin, which adequately covers Enterobacter Cloacae and Strep agalactiae infection. 4. Large right-sided staghorn calculus: Patient has staghorn calculus in the right kidney and on top of that he has a urinary tract infection. Stone is nidus of infection, it will be difficult to clear the infection. I recommend getting urology on board for further management of the stone on the right side. 5. Hypokalemia: It is secondary to aggressive diuresis. Patient has been started on Spironolactone. Oral potassium was also given to the patient. 6. Fungal rash in the groin: Topical Nystatin has been stopped and patient has been started on Miconazole powder. 7. Difficult I.V. access: Patient would get a PICC line on Thursday. Most of the medications have been changed to oral medications now. He continues to be on I.V. Levaquin. 8. Atrial fibrillation with rapid ventricular rate: Heart rate is controlled at this time. He was anticoagulated with Heparin. Currently he is on Xarelto. JOHNNYD
[2020-07-02] MEDS ORDERED: POTASSIUM CHLORIDE 10 MEQ SR TABLET PO ONE (09:45)
--- NOTE | 2020-07-02 09:56 | IPNPDOC ---
Text Note Date of Service The patient was seen on 07/02/20. NOTE Subjective: Patient is a 65 y.o. M with a history of atrial fibrillation, CHF, depression (on Sertraline), UTI, metabolic encephalopathy, and morbid obesity who presented to the ED due to R hip pain and generalized weakness. Patient presented from home via EMS covered in dry feces. Patient was difficult to understand due to dysarthria and AMS. His baseline mental status was unknown at that time. On 06/28/2020, patients speech improved and he was alert and oriented to examination. Patient states that he feels better today and reports that his swelling has de creased. He denies any changes in appetite and states that he ate breakfast without any difficulty. He states that he still has some mouth dryness. Denies any abdominal pain, headache, visual changes, dizziness. Objective: GENERAL: Patient is alert, cooperative, and in no acute distress HEENT: NC/AT. Conjunctiva and lids normal. EOMI. Dry oral mucosa. Nares patent. NECK: No JVD. CHEST: Clear to auscultation. Diminished L basilar breath sounds. No wheezing. HEART: Regular rate and rhythm. ABDOMEN: Soft abdomen and non-tender to palpation. Distended abdomen with c entral abdominal hernia, panniculitis. EXTREMITY: BLE 1+ pitting edema up to his thighs with chronic venous stasis hyperpigmentation. Pitting edema no longer in arms or abdomen. SKIN: Macerations on L posterior thigh, erythema of medial buttocks, no open ulcerations. Onycholysis present bilateral toenails NEURO: Improved speech since admission, Patient is able to have a full conversation with me and does not stop to breath while on nasal cannula. Normal tone. Sensation intact PSYCH: A&Ox3. Assessment/Plan: #Paroxysmal atrial fibrillation with RVR with h/o atrial fibrillation: - rate-controlled today. - Continue Metoprolol 25mg BID, with holding parameters SBP<110 and HR<60. - Pt was transferred on 06/27/2020 due to PCU due to development of atrial fibrillation with RVR. - Xarelto was discontinued as an outpatient for gross hematuria. - Heparin drip was DC'd on 06/30/2020 due to protocol 2/2 elevated aPTT, and then started again this morning when aPTT had decreased. - Xarelto home dose of 20mg has been resumed in place of Heparin drip. - Pt's rhythm will be continuously monitored via telemetry. - Follows with Dr. Leach. #Urinary tract infection - Pt urine showed 1+ bacteria, 3+ leukocyte esterase, TNTC WBCs and RBCs, 3+ blood, trace ketones, and 3+ protein on 06/25/2020. - Urine culture returned today with Enterobacter cloacae and Strep agalactiae. - Patients vancomycin and cefepime was discontinued and levofloxacin 750 mg IV was started for coverage. - CT 06/10/20 shows calculi in right kidney, may be contributing to the RBCs on urinalysis. - Urology consulted because the calculi may be nidus of infection and pt will continue to have UTIs. Primary care team appreciates input on care. #R staghorn calculus - urology consulted - patient will likely require PCNL, will coordinate with Dr. Hawkins and Dr. Live - patient will have follow up with nephrology and urology outpatient at [facility]. #Hypokalemia - Pt has potassium of 3.3 today. - Potassium and spironolactone ordered by Nephrology. - Switched furosemide to oral diuretics, Torsemide, by Nephrology. (Peripheral access difficult. Nephrology has ordered a PICC line, to be scheduled on weekday with IR). - Spironolactone has been increased from 50 mg PO daily to 50 mg PO BID. #Altered mental status / Acute metabolic encephalopathy - likely 2/2 infection, possibly 2/2 baseline - Pt's mental status has improved today and he is A&Ox3 today. - CT head negative on 06/25/2020. - Pt has a history of hepatic steatosis found on ultrasound. (06/10/2020). - Holding sertraline due to tardive dyskinesia-like tics of face on presentation to ED.(frequent licking of the lips). - Per neurology: could not send pt to hospital with MRI with and without contrast that would fit pt; Lyme Ab, MuSK Ab, ACh receptor Ab, pending; B12, and B1 ordered today. #Possible nephrotic syndrome - Patient exhibits edema of b/l lower extremities and abd wall, hypoalbuminemia, proteinuria 3+ on UA. - Patient is currently receiving diuretics due to CHF exacerbation. - Nephrology is following patient and awaiting resolution of infectious etiology to understand true etiology of proteinuria. Their help is very much appreciated. #Possibly decompensated CHF exacerbation: - generalized anasarca present since admission. - some improvement of edema seen, still pitting edema +2. - He is on Furosemide at home. - BNP elevated. - ECHO 01/2020: Low/normal LV systolic function (EF 50%) / Diastolic function not evaluated (re: a.fib) - Imaging with evidence of pleural effusions / cephalization. - Will check ECHO / Tele monitoring / Fluid restriction. - Pt's troponin levels are low. - Hold Lasix 40mg IV BID (with holding parameters, SBP <110.) - Pt has been started on Torsemide by Nephrology, due to ongoing anasarca. - Pt is placed on a sodium restricted, 2g diet at this time. 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 - pt has been placed on NETTE protocol for possible need for nocturnal oxygen. - Nocturnal oximetry from 06/21/2018 showed abnormal nocturnal oximetry: pt qualifies for nocturnal oxygen supplementation. #Leukocytosis - possibly 2/2 UTI, complicated with indwelling Crowell - Pt's last hospitalization was due to UTI at which time he was treated with ceftriaxone. - Pt has a chronic indwelling catheter that was covered in feces on admission. - Pt's vital signs are currently stable and he is afebrile. Urinalysis was posi tive prompting further exploration of etiology. - Urine culture shows Enterobacter cloacae and Strep agalactiae. - Stopped cefepime and vancomycin for broad spectrum coverage and started levofloxacin. - WBC within normal limits. - Ordered repeat procalcitonin. 06/27/20 showed procalcitonin: 0.12, increased from 0.11 from 06/25/2020. #Recovering from pneumonia: - Pt's CT chest showed ground glass opacities consistent with recovering from pneumonia. - Since readings compared to his recent hospitalization show some worsening, this may be due to CHF exacerbation. - Respiratory panel negative. - SARS-CoV-2: negative - Continue diuretics at this time. - Antibiotic coverage started. #Lymphedema: - Pt has chronic lower extremity edema evident with chronic venous stasis. - He has been placed on a sodium-restricted diet and given compressive stockings. - Elevated foot of bed #Prevention of intertriginous fungal infection: - Pt has multiple intertriginous areas susceptible to fungal infections. Continue home medication: nystatin powder. DVT Prophylaxis - Pt is on Xarelto 20mg QHS home dose for atrial fibrillation. VS,Fishbone, I+O VS, Fishbone, I+O Laboratory Tests 07/02/20 05:55 Vital Signs Date Time Temp Pulse Resp B/P (MAP) Pulse Ox O2 Delivery O2 Flow Rate FiO2 07/02/20 08:34 75 106/65 07/02/20 06:30 93 Nasal Cannula 2.0 07/02/20 06:00 97.3 19 I&O- Last 24 Hours up to 6 AM 07/02/20 06:00 Intake Total 1495 ml Output Total 7800 ml Balance -6305 ml GME ATTESTATION GME ATTESTATION My faculty preceptor for this patient encounter was physically present during the encounter and was fully available. All aspects of the patient interview, examination, medical decision making process, and medical care plan development were reviewed and approved by the faculty preceptor. The faculty preceptor is aware and concurs with the plan as stated in the body of this note and will attest to such by his/her cosignature. ATTENDING NOTE I, Pastor Hathaway MD, have independently examined this patient and p erformed my own physical exam, as well as reviewed the documentation and edited where necessary. I have discussed in detail with the resident / student the findings and plan of treatment as documented by the resident / student and edited their note. I agree with their findings and treatment plan and have edited their documentation. I will continue to follow the patient during this hospital stay. D/w Dr. Hahn, no need for PICC line. Diuresing well. C/w PO diuretics Per urology d/w Dr. Hawkins, patient would need to go to [facility] as outpatient for PCNL. C/w xarelto. Levaquin. Rest per resident note. Shelley CUELLAR OMS-3 Jul 02, 2020 09:37 Alli Hahn DO Jul 02, 2020 11:01 PASTOR HATHAWAY MD Jul 02, 2020 11:17
[2020-07-02 11:09] LABS: HEPATITIS B SURFACE ANTIBODY NEGATIVE (POSITIVE)
[2020-07-02 11:19] LABS: HEPATITIS B SURFACE ANTIGEN NEGATIVE (NEGATIVE)
[2020-07-02 11:47] LABS: HEPATITIS B CORE ANTIBODY IGM NEGATIVE (NEGATIVE); HEPATITIS C VIRUS ABY INDEX 0.4 INDEX (<0.8)
--- NOTE | 2020-07-02 12:27 | IPN ---
NEPHROLOGY PROGRESS NOTE DATE: 07/01/2020 SUBJECTIVE: The patient was seen and examined at the bedside today morning. He is afebrile, hemodynamically stable. He is diuresing very well with the current dose of diuretics. He reports his shortness of breath and edema is getting better and he made more than 8 liters of urine yesterday. Despite that, his renal function is stable. OBJECTIVE: VITAL SIGNS: Temperature is 97.3 degrees Fahrenheit, blood pressure 121/64, pulse is 71, respiratory rate of 19, saturating 96% on nasal cannula at 2 liters. INTAKE AND OUTPUT: Urine output recorded as 8.1 liters yesterday, 650 mL so far today since overnight. Weight in the bed scale is not available. PHYSICAL EXAMINATION: GENERAL APPEARANCE: The patient is awake, alert, oriented x3, morbidly obese, laying in bed in no apparent distress. HEAD AND NECK: Extraocular muscles intact. Pupils are equally round and reactive to light. Mucous membranes are moist. Neck is supple. Mildly elevated jugular venous distention. CARDIOVASCULAR: S1, S2, regular rate. EXTREMITIES: 2+ edema of the bilateral lower extremities up to the thighs. RESPIRATORY: Chest is clear to auscultation bilaterally. Bilaterally currently no rales or rhonchi. ABDOMEN: Soft, obese, positive bowel sounds. Abdominal wall edema was noted but it is getting better. GENITOURINARY: He has an indwelling Crowell catheter. MUSCULOSKELETAL: Chronic venous stasis changes of the bilateral lower extremities were noted and edema of the lower extremities was noted, as mentioned above. 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 Power is 5/5 in bilateral upper extremities. LAB REVIEW: CBC showed a WBC of 9.6, hemoglobin 11.7, platelet count 176. INR is 2.46. BMP showed sodium of 136, potassium 3.9, chloride 94, bicarbonate 38, BUN 13, creatinine is 0.84. Calcium is 8, magnesium is 2.1. CURRENT INPATIENT MEDICATIONS: The patient's medications were all reviewed by myself. The patient was given a dose of potassium chloride 40 mEq today. Torsemide dose has been decreased to 20 mg twice daily. He continues to be on Spironolactone 50 mg twice daily. ASSESSMENT AND PLAN: 1. Generalized anasarca - The patient is responding very well to the oral diuretics. He is in negative fluid balance every day. Because of the patient getting alkalotic and making more than 8 liters of urine yesterday, his Torsemide dose has been decreased to 20 mg twice daily. 2. Proteinuria - The patient has less than one gram proteinuria. He is not a candidate for a renal biopsy because of active infection and he cannot be given steroids at this time because of infection, and because of his morbid obesity, at this time we cannot do any renal biopsy. Renal function is stable. Okay to continue the diuresis at this time. 3. Urinary tract infection and indwelling Crowell catheter - Levaquin has been changed into oral Levaquin. 4. Large right sided staghorn calculus infection is being treated with oral antibiotics. He would need percutaneous nephrolithotomy by Urology. 5. Atrial fibrillation - heart rate is controlled. He is anticoagulated with Xarelto.
[2020-07-02 14:00] VITALS: BP 109/60
[2020-07-02] MEDS: RIVAROXABAN 20 MG TAB (XARELTO) PO SCH (20:30)
[2020-07-02 21:00] VITALS: O2SAT 93
[2020-07-02 22:00] VITALS: BP 113/64
[2020-07-02] MEDS ORDERED: diphenhydrAMINE 25MG CAP PO ONE (23:15)
[2020-07-03] MEDS: LevoFLOXacin 750 MG TABLET PO SCH (05:04)
[2020-07-03] MEDS: SLF 3 ML SYR IV SCH ×3 (05:05→19:51)
[2020-07-03 06:00] VITALS: BP 125/65
[2020-07-03 08:11] LABS: BASO # 0.1 10^3/uL (0.0-0.2); BASO % 0.8 % (0.0-1.0); EOS # 0.8 10^3/uL (0.0-0.5); EOS % 6.3 % (0.0-3.0); HEMATOCRIT 39.8 % (42.0-52.0); HEMOGLOBIN 12.8 g/dl (13.5-17.5); LYMPH # 2.3 10^3/uL (1.5-5.0); LYMPH % 18.8 % (24.0-44.0); MEAN CORPUSCULAR HEMOGLOBIN 29.6 pg (27.0-33.0); MEAN CORPUSCULAR HGB CONC 32.2 g/dl (32.0-36.5); MEAN CORPUSCULAR VOLUME 91.9 fl (80.0-96.0); MONO # 1.3 10^3/uL (0.0-0.8); MONO % 10.3 % (2.0-8.0); NEUTROPHILS # 7.5 10^3/uL (1.5-8.5); NEUTROPHILS % 61.3 % (36.0-66.0); PLATELET COUNT, AUTOMATED 189 10^3/uL (150-450); RED BLOOD COUNT 4.33 10^6/uL (4.30-6.10); WHITE BLOOD COUNT 12.2 10^3/uL (4.0-10.0)
[2020-07-03 08:45] LABS: ALT/SGPT 29 U/L (12-78); BILIRUBIN,TOTAL 0.9 MG/DL (0.2-1.0); BLOOD UREA NITROGEN 17 MG/DL (7-18); CALCIUM LEVEL 8.6 MG/DL (8.8-10.2); CARBON DIOXIDE LEVEL 30 MEQ/L (21-32); CHLORIDE LEVEL 94 MEQ/L (98-107); CREATININE FOR GFR 0.88 MG/DL (0.70-1.30); GLOMERULAR FILTRATION RATE > 60.0 (>49); GLUCOSE, FASTING 96 MG/DL (70-100); MAGNESIUM LEVEL 2.2 MG/DL (1.8-2.4); POTASSIUM SERUM 4.6 MEQ/L (3.5-5.1); SODIUM LEVEL 132 MEQ/L (136-145); TOTAL PROTEIN 8.8 GM/DL (6.4-8.2)
[2020-07-03] MEDS: METOPROLOL SUCC *XL* 25MG TAB (TopROL *XL*) PO SCH ×2 (09:00→20:43)
[2020-07-03] MEDS: DOCUSATE SODIUM 100MG CAPSULE PO SCH ×2 (09:00→20:43)
[2020-07-03] MEDS: DIMETHICONE 2% OINTMENT(VANICREAM) 70GM TUBE TOP SCH ×2 (09:37→20:44)
[2020-07-03] MEDS: TORSEMIDE 20 MG TAB PO SCH ×2 (09:37→16:55)
[2020-07-03] MEDS: MICONAZOLE 2 % POWDER (DESENEX) TOP SCH ×2 (09:37→20:43)
[2020-07-03] MEDS: SPIRONOLACTONE 50 MG TAB PO SCH ×2 (09:38→20:43)
--- NOTE | 2020-07-03 09:42 | IPNPDOC ---
Text Note Date of Service The patient was seen on 07/03/20. NOTE Subjective: Patient is a 65 y.o. M with a history of atrial fibrillation, CHF, depression (on Sertraline), UTI, metabolic encephalopathy, and morbid obesity who presented to the ED due to R hip pain and generalized weakness. Patient presented from home via EMS covered in dry feces. Patient was difficult to understand due to dysarthria and AMS. His baseline mental status was unknown at that time. On 06/28/2020, patients speech improved and he was alert and oriented to examination. Patient states that he feels well today and reports that his swelling has decr eased. He denies any changes in appetite and states that he ate breakfast without any difficulty. He denies any abdominal pain, headache, visual changes, dizziness. Objective: GENERAL: Patient is alert, cooperative, and in no acute distress HEENT: NC/AT. Conjunctiva and lids normal. EOMI. Dry oral mucosa. Nares patent. NECK: No JVD. CHEST: Clear to auscultation. Diminished L basilar breath sounds. No wheezing. HEART: Regular rate and rhythm. ABDOMEN: Soft abdomen and non-tender to palpation. Distended abdomen with central abdominal hernia, panniculitis. EXTREMITY: BLE 1+ pitting edema up to his knees with chronic venous stasis hyperpigmentation. Pitting edema no longer in arms or abdomen. SKIN: Macerations on L posterior thigh, erythema of medial buttocks, no open ulcerations. Onycholysis present bilateral toenails NEURO: Improved speech since admission, Patient is able to have a full conversation with me and does not stop to breath while on nasal cannula. Normal tone. Sensation intact PSYCH: A&Ox3. Assessment/Plan: #Paroxysmal atrial fibrillation with RVR with h/o atrial fibrillation: - rate-controlled today. - Continue Metoprolol 25mg BID, with holding parameters SBP<110 and HR<60. - Pt was transferred on 06/27/2020 due to PCU due to development of atrial fibrillation with RVR. - Xarelto was discontinued as an outpatient for gross hematuria. - Heparin drip was DC'd on 06/30/2020 - Xarelto home dose of 20mg has been resumed in place of Heparin drip. - Pt's rhythm will be continuously monitored via telemetry. - Follows with Dr. Leach. #Urinary tract infection - Pt urine showed 1+ bacteria, 3+ leukocyte esterase, TNTC WBCs and RBCs, 3+ blood, trace ketones, and 3+ protein on 06/25/2020. - Urine culture returned today with Enterobacter cloacae and Strep agalactiae. - Patients vancomycin and cefepime was discontinued and levofloxacin 750 mg IV was started for coverage. - CT 06/10/20 shows calculi in right kidney, may be contributing to the RBCs on urinalysis. - Urology consulted because the calculi may be nidus of infection and pt will continue to have UTIs. Primary care team appreciates input on care. - Plan to continue Levaquin #R staghorn calculus - urology consulted - patient will likely require PCNL, will coordinate with Dr. Hawkins and Dr. Live - patient will have follow up with nephrology and urology outpatient at [facility]. - Discussed with urology; will have outpatient management of staghorn calculus - discussed today #Hypokalemia- resolved - Pt has potassium of 3.9 today. - Potassium and spironolactone ordered by Nephrology. - Switched furosemide to oral diuretics, Torsemide, by Nephrology. - Spironolactone has been increased from 50 mg PO daily to 50 mg PO BID. #Altered mental status / Acute metabolic encephalopathy - likely 2/2 infection, possibly 2/2 baseline - Pt's mental status has improved today and he is A&Ox3 today. - CT head negative on 06/25/2020. - Pt has a history of hepatic steatosis found on ultrasound. (06/10/2020). - Holding sertraline due to tardive dyskinesia-like tics of face on presentation to ED.(frequent licking of the lips). - Per neurology: could not send pt to hospital with MRI with and without contrast that would fit pt; Lyme Ab, MuSK Ab, ACh receptor Ab, pending; B12, and B1 ordered today. #Possible nephrotic syndrome - Patient exhibits edema of b/l lower extremities and abd wall, hypoalbuminemia, proteinuria 3+ on UA. - Patient is currently receiving diuretics due to CHF exacerbation. - Nephrology is following patient and awaiting resolution of infectious etiology to understand true etiology of proteinuria. Their help is very much appreciated. #Possibly decompensated CHF exacerbation: - generalized anasarca present since admission. - some improvement of edema seen, still pitting edema +2. - He is on Furosemide at home. - BNP elevated. - ECHO 01/2020: Low/normal LV systolic function (EF 50%) / Diastolic function not evaluated (re: ravin) - Imaging with evidence of pleural effusions / cephalization. - c/w Fluid restriction. - Pt's troponin levels are low. - Hold Lasix 40mg IV BID (with holding parameters, SBP <110.) - Pt has been started on Torsemide by Nephrology, due to ongoing anasarca. - Pt is placed on a sodium restricted, 2g diet at this time. 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 - pt has been placed on NETTE protocol for possible need for nocturnal oxygen. - Nocturnal oximetry from 06/21/2018 showed abnormal nocturnal oximetry: pt qualifies for nocturnal oxygen supplementation. #Leukocytosis - possibly 2/2 UTI, complicated with indwelling Crowell - Pt's last hospitalization was due to UTI at which time he was treated with ceftriaxone. - Pt has a chronic indwelling catheter that was covered in feces on admission. - Pt's vital signs are currently stable and he is afebrile. Urinalysis was positive prompting further exploration of etiology. - Urine culture shows Enterobacter cloacae and Strep agalactiae. - Stopped cefepime and vancomycin for broad spectrum coverage and started levofloxacin. - WBC within normal limits. - Ordered repeat procalcitonin. 06/27/20 showed procalcitonin: 0.12, increased from 0.11 from 06/25/2020. #Recovering from pneumonia: - Pt's CT chest showed ground glass opacities consistent with recovering from pneumonia. - Since readings compared to his recent hospitalization show some worsening, this may be due to CHF exacerbation. - Respiratory panel negative. - SARS-CoV-2: negative - Continue diuretics at this time. - Antibiotic coverage started. #Lymphedema: - Pt has chronic lower extremity edema evident with chronic venous stasis. - He has been placed on a sodium-restricted diet and given compressive stockings. - Elevated foot of bed #Prevention of intertriginous fungal infection: - Pt has multiple intertriginous areas susceptible to fungal infections. Continue home medication: nystatin powder. DVT Prophylaxis - Pt is on Xarelto 20mg QHS home dose for atrial fibrillation. Disposition: - Anticipate transition to ALC today - Awaiting progress from PT VS,Fishbone, I+O VS, Fishbone, I+O Laboratory Tests 07/03/20 07:55 Vital Signs Date Time Temp Pulse Resp B/P (MAP) Pulse Ox O2 Delivery O2 Flow Rate FiO2 07/03/20 06:00 97.6 71 19 125/65 (85) 93 Nasal Cannula 2.0 I&O- Last 24 Hours up to 6 AM 07/03/20 05:59 Intake Total 900 ml Output Total 2600 ml Balance -1700 ml GME ATTESTATION My faculty preceptor for this patient encounter was physically present during the encounter and was fully available. All aspects of the patient interview, examination, medical decision making process, and medical care plan development were reviewed and approved by the faculty preceptor. The faculty preceptor is aware and concurs with the plan as stated in the body of this note and will attest to such by his/her cosignature. ATTENDING NOTE I, Philip Sullivan, have independently examined this patient and performed my own physical exam, as well as reviewed the documentation and edited where necessary. I have discussed in detail with the resident / student the findings and plan of treatment as documented by the resident / student and edited their note. I agree with their findings and treatment plan and have edited their documentation. I will continue to follow the patient during this hospital stay. Alli Hahn DO Jul 03, 2020 09:42 PHILIP SULLIVAN MD Jul 03, 2020 13:40
[2020-07-03 10:26] LABS: ALBUMIN 2.92 GM/DL (3.29-5.55); ALBUMIN % 39.5 % (55.8-66.1); ALPHA-1-GLOBULIN % 6.2 % (2.9-4.9); ALPHA-1-GLOBULINS 0.46 GM/DL (0.17-0.41); ALPHA-2-GLOBULINS 0.65 GM/DL (0.42-0.99); ALPHA-2-GLOBULINS % 8.8 % (7.1-11.8); BETA-1-GLOBULINS 0.44 GM/DL (0.28-0.60); BETA-2-GLOBULINS % 6.8 % (3.2-6.5); GAMMA GLOBULIN % 32.7 % (11.1-18.8); GAMMA GLOBULINS 2.42 GM/DL (0.65-1.58)
--- NOTE | 2020-07-03 12:10 | IPN ---
PROGRESS NOTE DATE: 07/03/2020 SUBJECTIVE: The patient was seen and examined at the bedside today morning. He is laying in bed. His diuretic regimen was decreased yesterday because he was alkalotic. He had made 8 liters of urine the day before. He is still making a good amount of urine. He made more than 2 liters of urine yesterday. His renal function is stable. Alkalosis has improved and today the patient has developed hyponatremia. I discussed the patient's current condition with his fianc over the phone today as well. OBJECTIVE: VITAL SIGNS: Temperature is 97.6 degrees Fahrenheit, blood pressure is 125/65, pulse 71, respiratory rate 19, saturating 93% on nasal cannula at 2 liters. INTAKE AND OUTPUT: Urine output recorded as 2.6 liters yesterday, 550 ml so far today since overnight. Weight on the bed scale is not available. GENERAL: Patient is awake, alert, and oriented x3, morbidly obese laying in bed, in no apparent distress. HEAD AND NECK: Extraocular muscles intact. Pupils equally round and reactive to light. Mucous membranes are moist. Mildly elevated JVD. CARDIOVASCULAR: S1 and S2, regular rate. 2+ edema of the bilateral lower extremities was noted. RESPIRATORY: Chest is clear to auscultation bilaterally, bilateral equal air entry. No rales or rhonchi. ABDOMEN: Soft, obese, positive bowel sounds. Abdominal wall edema is improving now. GENITOURINARY: He has an indwelling Crowell catheter. MUSCULOSKELETAL: 2+ edema of the bilateral lower extremities, chronic venous stasis changes of bilateral legs. [employer]: No focal deficit. Power is 5+/5+ in all extremities. LABORATORY DATA: CBC showed a WBC of 12.2, hemoglobin 12.8, platelets are 189,000. BMP showed a sodium of 132, potassium 4.6, chloride 94, bicarbonate 30, BUN 17, creatinine 0.88. Calcium 8.6. AST 66, ALT 29, alkaline phosphatase is 217, albumin is 3 today. Serum protein electrophoresis was done on July 01 which showed increased gamma fraction suggesting polyclonal gammopathy. Immunology is still pending. Hepatitis B and C serology is negative. CURRENT INPATIENT MEDICATIONS: Patient's medications were all reviewed by myself. He continues to be on spironolactone 50 mg p.o. twice a day, torsemide has been increased again to 40 mg p.o. twice a day. No other significant change in the medications today as compared with yesterday. ASSESSMENT AND PLAN: 1. Generalized anasarca. Patient's diuretics were decreased yesterday because of alkalosis. He still has significant volume overload. His alkalosis is better. I have increased the torsemide dose again to 40 mg p.o. twice a day. Once his volume status is all improved, then his torsemide dose will be decreased. 2. Urinary tract infection and indwelling Crowell catheter. Patient is currently on oral Levaquin. 3. Proteinuria. Patient has less than a gram of proteinuria. Continue the diuretic. No indication of adrenal biopsy or steroids at this time. 4. Right sided staghorn calculus. Patient was seen by Urology. Percutaneous Nephrolithotomy probably as an outpatient. 5. Atrial fibrillation, heart rate is controlled. He is anticoagulated with Xarelto. 6. Hyponatremia. Patient has hypervolemic hyponatremia. Sodium should get better with diuresis.
[2020-07-03] MEDS: RIVAROXABAN 20 MG TAB (XARELTO) PO SCH (20:43)
[2020-07-04] MEDS ORDERED: diphenhydrAMINE 25MG CAP PO ONE ×2 (01:30→21:40)
[2020-07-04] MEDS: LevoFLOXacin 750 MG TABLET PO SCH (05:33)
[2020-07-04] MEDS: SLF 3 ML SYR IV SCH ×2 (05:33→12:43)
[2020-07-04 06:00] VITALS: BP 116/68
--- NOTE | 2020-07-04 08:19 | IPNPDOC ---
Text Note Date of Service The patient was seen on 07/04/20. NOTE Subjective: Patient is a 65 y.o. M with a history of atrial fibrillation, CHF, depression (on Sertraline), UTI, metabolic encephalopathy, and morbid obesity who presented to the ED due to R hip pain and generalized weakness. Patient presented from home via EMS covered in dry feces. Patient was difficult to understand due to dysarthria and AMS. His baseline mental status was unknown at that time. On 06/28/2020, patients speech improved and he was alert and oriented to examination. Patient states that he feels well today and reports that his swelling has decreased. He denies any changes in appetite and states that he ate breakfast without any difficulty. He denies any abdominal pain, headache, visual changes, dizziness. He reports being able to ambulate down the olivera. Objective: GENERAL: Patient is alert, cooperative, and in no acute distress HEENT: NC/AT. Conjunctiva and lids normal. EOMI. Dry oral mucosa. Nares patent. NECK: No JVD. CHEST: Clear to auscultation. Diminished L basilar breath sounds. No wheezing. HEART: Regular rate and rhythm. ABDOMEN: Soft abdomen and non-tender to palpation. Distended abdomen with central abdominal hernia, panniculitis. EXTREMITY: BLE 1+ pitting edema up to his knees with chronic venous stasis hyperpigmentation, decreased tightness. Pitting edema no longer in arms or abdomen. SKIN: Macerations on L posterior thigh, erythema of medial buttocks, no open ulcerations. Onycholysis present bilateral toenails NEURO: Improved speech since admission, Patient is able to have a full conversation with me and does not stop to breath while on nasal cannula. Normal tone. Sensation intact PSYCH: A&Ox3. Assessment/Plan: #Paroxysmal atrial fibrillation with RVR with h/o atrial fibrillation: - rate-controlled today. - Continue Metoprolol 25mg BID, with holding parameters SBP<110 and HR<60. - Pt was transferred on 06/27/2020 due to PCU due to development of atrial fibrillation with RVR. - Xarelto was discontinued as an outpatient for gross hematuria. - Heparin drip was DC'd on 06/30/2020 - Xarelto home dose of 20mg has been resumed in place of Heparin drip. - Pt's rhythm will be continuously monitored via telemetry. - Follows with Dr. Leach. #Urinary tract infection - Pt urine showed 1+ bacteria, 3+ leukocyte esterase, TNTC WBCs and RBCs, 3+ blood, trace ketones, and 3+ protein on 06/25/2020. - Urine culture returned today with Enterobacter cloacae and Strep agalactiae. - Patients vancomycin and cefepime was discontinued and levofloxacin 750 mg IV was started for coverage. - CT 06/10/20 shows calculi in right kidney, may be contributing to the RBCs on urinalysis. - Urology consulted because the calculi may be nidus of infection and pt will continue to have UTIs. Primary care team appreciates input on care. - Plan to continue Levaquin #R staghorn calculus - urology consulted - patient will likely require PCNL, will coordinate with Dr. Hawkins and Dr. Live - patient will have follow up with nephrology and urology outpatient at [facility]. - Discussed with urology; will have outpatient management of staghorn calculus - discussed today #Electrolyte disturbances - Previously hypokalemic, Nephrology ordered spirinolactone dose to be given. - Pt has potassium of 4.6 yesterday 07/03, rechecking potassium levels this am to be sure pt is not hyperkalemic due to change in medications. - Potassium and spironolactone ordered by Nephrology. - Switched furosemide to oral diuretics, Torsemide, by Nephrology. - Spironolactone has been increased from 50 mg PO daily to 50 mg PO BID. - pt developed hyponatremia, according to nephrology, this should adjust as the pt continues to diurese. We appreciate Nephrology's input. - Repeat BMP has been ordered. #Altered mental status / Acute metabolic encephalopathy - likely 2/2 infection, possibly 2/2 baseline - Pt's mental status has improved today and he is A&Ox3 today. - CT head negative on 06/25/2020. - Pt has a history of hepatic steatosis found on ultrasound. (06/10/2020). - Holding sertraline due to tardive dyskinesia-like tics of face on presentation to ED.(frequent licking of the lips). - Per neurology: could not send pt to hospital with MRI with and without contrast that would fit pt; Lyme Ab, MuSK Ab, ACh receptor Ab, pending; B12, and B1 ordered today. #Possible nephrotic syndrome - Patient exhibits edema of b/l lower extremities and abd wall, hypoalbuminemia, proteinuria 3+ on UA. - Patient is currently receiving diuretics due to CHF exacerbation. - Nephrology is following patient and awaiting resolution of infectious etiology to understand true etiology of proteinuria. Their help is very much appreciated. #Possibly decompensated CHF exacerbation: - generalized anasarca present since admission. - some improvement of edema seen, still pitting edema +2. - He is on Furosemide at home. - BNP elevated. - ECHO 01/2020: Low/normal LV systolic function (EF 50%) / Diastolic function not evaluated (re: a.fib) - Imaging with evidence of pleural effusions / cephalization. - c/w Fluid restriction. - Pt's troponin levels are low. - Hold Lasix 40mg IV BID (with holding parameters, SBP <110.) - Pt has been started on Torsemide by Nephrology, due to ongoing anasarca. - Pt is placed on a sodium restricted, 2g diet at this time. 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 - pt has been placed on NETTE protocol for possible need for nocturnal oxygen. - Nocturnal oximetry from 06/21/2018 showed abnormal nocturnal oximetry: pt qualifies for nocturnal oxygen supplementation. #Leukocytosis - possibly 2/2 UTI, complicated with indwelling Crowell - Pt's last hospitalization was due to UTI at which time he was treated with ceftriaxone. - Pt has a chronic indwelling catheter that was covered in feces on admission. - Pt's vital signs are currently stable and he is afebrile. Urinalysis was positive prompting further exploration of etiology. - Urine culture shows Enterobacter cloacae and Strep agalactiae. - Stopped cefepime and vancomycin for broad spectrum coverage and started levofloxacin. - WBC within normal limits. - Ordered repeat procalcitonin. 06/27/20 showed procalcitonin: 0.12, increased from 0.11 from 06/25/2020. #Recovering from pneumonia: - Pt's CT chest showed ground glass opacities consistent with recovering from pneumonia. - Since readings compared to his recent hospitalization show some worsening, this may be due to CHF exacerbation. - Respiratory panel negative. - SARS-CoV-2: negative - Continue diuretics at this time. - Antibiotic coverage started. #Lymphedema: - Pt has chronic lower extremity edema evident with chronic venous stasis. - He has been placed on a sodium-restricted diet and given compressive stockings. - Elevated foot of bed #Prevention of intertriginous fungal infection: - Pt has multiple intertriginous areas susceptible to fungal infections. Continue home medication: nystatin powder. DVT Prophylaxis - Pt is on Xarelto 20mg QHS home dose for atrial fibrillation. Disposition: - Pt is ALC today - Awaiting progress from PT GME ATTESTATION My faculty preceptor for this patient encounter was physically present during the encounter and was fully available. All aspects of the patient interview, examination, medical decision making process, and medical care plan development were reviewed and approved by the faculty preceptor. The faculty preceptor is aware and concurs with the plan as stated in the body of this note and will attest to such by his/her cosignature. VS,Fishbone, I+O VS, Fishbone, I+O Vital Signs Date Time Temp Pulse Resp B/P (MAP) Pulse Ox O2 Delivery O2 Flow Rate FiO2 07/04/20 06:00 97.2 65 18 116/68 (84) 95 Room Air 07/03/20 06:00 2.0 I&O- Last 24 Hours up to 6 AM 07/04/20 06:00 Intake Total 1190 ml Output Total 4525 ml Balance -3335 ml Alli Hahn DO Jul 04, 2020 08:19
[2020-07-04 09:52] LABS: BASO # 0.1 10^3/uL (0.0-0.2); BASO % 0.6 % (0.0-1.0); EOS # 0.7 10^3/uL (0.0-0.5); EOS % 7.2 % (0.0-3.0); HEMATOCRIT 38.1 % (42.0-52.0); HEMOGLOBIN 11.7 g/dl (13.5-17.5); LYMPH # 1.3 10^3/uL (1.5-5.0); LYMPH % 13.5 % (24.0-44.0); MEAN CORPUSCULAR HEMOGLOBIN 28.4 pg (27.0-33.0); MEAN CORPUSCULAR HGB CONC 30.7 g/dl (32.0-36.5); MEAN CORPUSCULAR VOLUME 92.5 fl (80.0-96.0); MONO # 0.8 10^3/uL (0.0-0.8); MONO % 8.8 % (2.0-8.0); NEUTROPHILS # 6.4 10^3/uL (1.5-8.5); NEUTROPHILS % 67.9 % (36.0-66.0); PLATELET COUNT, AUTOMATED 159 10^3/uL (150-450); RED BLOOD COUNT 4.12 10^6/uL (4.30-6.10); WHITE BLOOD COUNT 9.5 10^3/uL (4.0-10.0)
[2020-07-04 10:18] LABS: ALBUMIN 2.7 GM/DL (3.2-5.2); ALT/SGPT 41 U/L (12-78); BILIRUBIN,TOTAL 0.9 MG/DL (0.2-1.0); BLOOD UREA NITROGEN 21 MG/DL (7-18); CALCIUM LEVEL 8.6 MG/DL (8.8-10.2); CARBON DIOXIDE LEVEL 34 MEQ/L (21-32); CHLORIDE LEVEL 96 MEQ/L (98-107); CREATININE FOR GFR 1.02 MG/DL (0.70-1.30); GLOMERULAR FILTRATION RATE > 60.0 (>49); GLUCOSE, FASTING 124 MG/DL (70-100); POTASSIUM SERUM 3.3 MEQ/L (3.5-5.1); SODIUM LEVEL 133 MEQ/L (136-145); TOTAL PROTEIN 8.7 GM/DL (6.4-8.2)
[2020-07-04] MEDS: TORSEMIDE 20 MG TAB PO SCH (10:19)
[2020-07-04] MEDS: DOCUSATE SODIUM 100MG CAPSULE PO SCH ×2 (10:19→21:24)
[2020-07-04] MEDS: SPIRONOLACTONE 50 MG TAB PO SCH ×2 (10:19→21:25)
[2020-07-04] MEDS: MICONAZOLE 2 % POWDER (DESENEX) TOP SCH ×2 (10:19→21:25)
[2020-07-04] MEDS: DIMETHICONE 2% OINTMENT(VANICREAM) 70GM TUBE TOP SCH ×2 (10:20→21:25)
[2020-07-04] MEDS: METOPROLOL SUCC *XL* 25MG TAB (TopROL *XL*) PO SCH ×2 (10:21→21:00)
[2020-07-04] MEDS ORDERED: POTASSIUM CHLORIDE 10 MEQ SR TABLET PO ONE ×2 (10:30→16:00)
--- NOTE | 2020-07-04 11:19 | IPN ---
PROGRESS NOTE DATE: 07/04/2020 SUBJECTIVE: Patient was seen and examined at the bedside today morning. His diuretic dose was increased yesterday. Urine output is also better. Renal function is stable. There is slight bump in the creatinine today. He reports that his mobility is a lot better after getting rid of a lot of fluid. He is able to walk in the hallways without help of physical therapy. OBJECTIVE: VITAL SIGNS: Temperature 97.2 degrees Fahrenheit, blood pressure 116/68, pulse 65, respiratory rate 18, saturating 95% on room air. INTAKE AND OUTPUT: Urine output recorded as 4.2 liters yesterday, 875 mL so far today. Weight in the bed scale is not available. PHYSICAL EXAMINATION: GENERAL: Patient is awake, alert, oriented times three, morbidly obese, laying in bed in no distress. HEAD AND NECK EXAM: Extraocular muscles intact. Pupils equally round and reactive to light. Mucous membranes are moist. Neck is supple. Mildly elevated jugular venous distention (JVD). CARDIOVASCULAR: S1, S2. Regular rate. 2+ edema on the bilateral lower extremities. RESPIRATORY: Chest is clear to auscultation bilaterally. Bilateral equal air entry. No rales or rhonchi. ABDOMEN: Soft. Obese. Positive bowel sounds. Abdominal wall edema was noted, but it is improving. GENITOURINARY: He has an indwelling Crowell catheter. Some blood-tinged urine was seen in the Crowell. MUSCULOSKELETAL: Chronic venous stasis changes of bilateral lower extremities. Edema is getting better now. CENTRAL NERVOUS SYSTEM (MANAGER IN HOME): No focal deficits. Power is 5/5 in all extremities. LABORATORY REVIEW: CBC showed a WBC 9.5, hemoglobin 11.7, platelets 159. BMP showed sodium 133, potassium 3.3, chloride 96, bicarbonate 34, BUN 21, creatinine 1.02 (it was 0.8 yesterday), calcium 8.6. AST 88, ALT 41, alkaline phosphatase 213. CURRENT INPATIENT MEDICATIONS: Patient's medications were all reviewed by myself. I ordered a dose of potassium chloride 40 mEq now and another 40 mEq in the evening. Torsemide dose is being decreased to 40 mg by mouth daily. He continues to be on spironolactone 50 mg by mouth twice a day. No other significant change in the medications ASSESSMENT AND PLAN: 1. Generalized anasarca. Diuretic dose adjusted as mentioned above. Volume status is getting better. Continue low salt diet. Fluid restriction is less than 1.5 liters daily. 2. Proteinuria. Likely associated with the infection. Unlikely that patient is nephrotic. However, he is not a candidate for steroids or kidney biopsy at this time because of infection and large staghorn calculus. 3. Urinary tract infection and chronic indwelling Crowell catheter. Continue current dose of Levaquin. 4. Staghorn calculus on the right side. Patient is going to need surgery as an outpatient once he is stable. 5. Atrial fibrillation. Heart rate is controlled. He is anticoagulated with Xarelto. I see there is some hematuria. If it gets worse, then the Xarelto dose might need to be decreased. 6. Hypokalemia. Patient continues to be on spironolactone. Torsemide dose is being decreased and potassium was given today. 7. Hyponatremia. He has hypervolemic hyponatremia. Sodium is getting better with improvement in the volume status.
[2020-07-04 17:06] LABS: ANCA-ATYPICAL <1:20 titer (Neg:<1:20); ANTI DOUBLE STRAND-DNA AB <1 IU/mL (0-9); ANTI DS-DNA AB Negative (Negative); ANTINUCLEAR ANTIBODIES DIRECT Positive (Negative); CYTOPLASMIC NEUTROP AB ANCA-C <1:20 titer (Neg:<1:20); FREE KAPPA LIGHT CHAINS SERUM 122.6 mg/L (3.3-19.4); FREE LAMBDA LIGHT CHAINS SERUM 101.3 mg/L (5.7-26.3); HEPATITIS B CORE ANTIBODY IGG Negative (Negative); KAPPA/LAMBDA RATIO SERUM 1.21 (0.26-1.65); PERINUCLEAR AB ANCA-P <1:20 titer (Neg:<1:20); RNP ANTIBODIES 1.4 AI (0.0-0.9); SJOGREN'S ANTI SS-A <0.2 AI (0.0-0.9); SJOGREN'S ANTI SS-B <0.2 AI (0.0-0.9); SMITH ANTIBODIES <0.2 AI (0.0-0.9)
[2020-07-04] MEDS: RIVAROXABAN 20 MG TAB (XARELTO) PO SCH (21:25)
[2020-07-05] MEDS: LevoFLOXacin 750 MG TABLET PO SCH (05:54)
[2020-07-05 06:00] VITALS: BP 108/63
[2020-07-05 07:38] LABS: HEMATOCRIT 38.7 % (42.0-52.0); HEMOGLOBIN 12.1 g/dl (13.5-17.5); MEAN CORPUSCULAR HEMOGLOBIN 28.9 pg (27.0-33.0); MEAN CORPUSCULAR HGB CONC 31.3 g/dl (32.0-36.5); MEAN CORPUSCULAR VOLUME 92.4 fl (80.0-96.0); PLATELET COUNT, AUTOMATED 172 10^3/uL (150-450); RED BLOOD COUNT 4.19 10^6/uL (4.30-6.10); WHITE BLOOD COUNT 10.1 10^3/uL (4.0-10.0)
[2020-07-05 08:01] LABS: ALBUMIN 2.8 GM/DL (3.2-5.2); BLOOD UREA NITROGEN 20 MG/DL (7-18); CALCIUM LEVEL 8.6 MG/DL (8.8-10.2); CARBON DIOXIDE LEVEL 32 MEQ/L (21-32); CHLORIDE LEVEL 99 MEQ/L (98-107); CREATININE FOR GFR 0.92 MG/DL (0.70-1.30); GLOMERULAR FILTRATION RATE > 60.0 (>49); GLUCOSE, FASTING 90 MG/DL (70-100); PHOSPHORUS LEVEL 3.4 MG/DL (2.5-4.9); POTASSIUM SERUM 3.7 MEQ/L (3.5-5.1); SODIUM LEVEL 136 MEQ/L (136-145)
[2020-07-05] MEDS: METOPROLOL SUCC *XL* 25MG TAB (TopROL *XL*) PO SCH ×2 (09:00→21:00)
[2020-07-05] MEDS: DOCUSATE SODIUM 100MG CAPSULE PO SCH ×2 (09:33→21:38)
[2020-07-05] MEDS: SPIRONOLACTONE 50 MG TAB PO SCH ×2 (09:33→21:38)
[2020-07-05] MEDS: MICONAZOLE 2 % POWDER (DESENEX) TOP SCH ×2 (09:33→21:39)
[2020-07-05] MEDS: TORSEMIDE 20 MG TAB PO SCH (09:33)
[2020-07-05] MEDS: DIMETHICONE 2% OINTMENT(VANICREAM) 70GM TUBE TOP SCH ×2 (09:34→21:39)
--- NOTE | 2020-07-05 11:46 | IPN ---
NEPHROLOGY PROGRESS NOTE DATE: 07/05/2020 SUBJECTIVE: The patient was seen and examined at the bedside today morning. He reports that his edema is significantly getting better. He is more mobile now. Renal function is stable. He continues to be on diuretics at this time. OBJECTIVE: VITAL SIGNS: Temperature is 97 degrees Fahrenheit, blood pressure 108/63, pulse is 72, respiratory rate of 18, saturating 96% on room air. INTAKE AND OUTPUT: Urine output recorded as 2.4 liters yesterday, 350 mL so far today since overnight. Weight in the bed scale is not available. PHYSICAL EXAMINATION: GENERAL APPEARANCE: The patient is morbidly obese, laying in the bed in no apparent distress. HEAD AND NECK: Extraocular muscles intact. Pupils are equally round and reactive to light. Mucous membranes are moist. Neck is supple. Mildly elevated jugular venous distention. CARDIOVASCULAR: S1, S2, regular rate. EXTREMITIES: 1+ edema of the bilateral lower extremities. RESPIRATORY: Chest is clear to auscultation bilaterally. Bilaterally currently no rales or rhonchi. ABDOMEN: Obese, positive bowel sounds, abdominal wall edema about 2+ was noted in the flanks. GENITOURINARY: He has an indwelling Crowell catheter. MUSCULOSKELETAL: Edema of the extremities as mentioned above. He has chronic venous stasis changes of the bilateral lower extremities. ORTHOTIC ASSISTANT: No focal deficits. Power is 5/5 in all extremities. LAB REVIEW: CBC showed a WBC of 10.1, hemoglobin 12.1, platelet count 172. BMP showed sodium 136, potassium 3.7, chloride 99, bicarbonate 32, BUN 20, creatinine is 0.9. Albumin is 2.8. Immunology showed positive RASHMI. ANCA is negative and the double standard DNA is negative. CURRENT INPATIENT MEDICATIONS: The patient's medications were all reviewed by myself. He continues to be on Levaquin 750 mg p.o. daily. Torsemide dose was decreased to 40 mg p.o. daily. He continues to be on Spironolactone 50 mg twice daily. ASSESSMENT AND PLAN: 1. Generalized anasarca and decompensated congestive heart failure edema is significantly getting better. Continue current dose of Torsemide 40 mg daily and Spironolactone 50 mg p.o. twice daily. 2. Urinary tract infection - The patient is getting Levaquin. 3. Staghorn calculus on the right side - The patient was seen by Urology. Management will be done as an outpatient. 4. Hypokalemia it is controlled with Spironolactone now. Potassium dose is not needed today, however I am going to start the patient on daily potassium 20 mEq starting tomorrow morning. 5. Proteinuria no need of renal biopsy. Renal function is stable at this time. He is not a candidate for steroids or immunosuppression. 6. Atrial fibrillation heart rate is controlled. Anticoagulation is Xarelto. 7. Disposition - The patient is okay to be discharged. He will need to follow up with Nephrology as an outpatient within 2 weeks after discharge.
[2020-07-05] MEDS: RIVAROXABAN 20 MG TAB (XARELTO) PO SCH (21:38)
[2020-07-05] MEDS ORDERED: diphenhydrAMINE 25MG CAP PO ONE (23:30)
[2020-07-06 06:00] VITALS: BP 104/65
[2020-07-06] MEDS ORDERED: MOM 30ML SUSPENSION UDC PO PRN (08:50)
[2020-07-06] MEDS ORDERED: BISACODYL 10 MG SUPP PR PRN (08:50)
[2020-07-06 09:00] VITALS: BP 102/65
[2020-07-06] MEDS ORDERED: LACTULOSE 20 GM/30 ML SYRUP UD PO PRN (09:00)
[2020-07-06] MEDS: METOPROLOL SUCC *XL* 25MG TAB (TopROL *XL*) PO SCH (09:00)
[2020-07-06] MEDS ORDERED: SENOKOT S TAB PO PRN (09:00)
[2020-07-06] MEDS: DOCUSATE SODIUM 100MG CAPSULE PO SCH (09:05)
[2020-07-06] MEDS: TORSEMIDE 20 MG TAB PO SCH (09:05)
[2020-07-06] MEDS: SPIRONOLACTONE 50 MG TAB PO SCH (09:06)
[2020-07-06] MEDS: DIMETHICONE 2% OINTMENT(VANICREAM) 70GM TUBE TOP SCH (09:08)
[2020-07-06] MEDS: MICONAZOLE 2 % POWDER (DESENEX) TOP SCH (09:08)
[2020-07-06 09:52] LABS: ALBUMIN 2.9 GM/DL (3.2-5.2); BLOOD UREA NITROGEN 20 MG/DL (7-18); CALCIUM LEVEL 8.4 MG/DL (8.8-10.2); CARBON DIOXIDE LEVEL 32 MEQ/L (21-32); CHLORIDE LEVEL 97 MEQ/L (98-107); CREATININE FOR GFR 0.95 MG/DL (0.70-1.30); GLOMERULAR FILTRATION RATE > 60.0 (>49); GLUCOSE, FASTING 124 MG/DL (70-100); PHOSPHORUS LEVEL 2.9 MG/DL (2.5-4.9); POTASSIUM SERUM 3.4 MEQ/L (3.5-5.1); SODIUM LEVEL 134 MEQ/L (136-145)
[2020-07-06] MEDS ORDERED: METO1TAB32 PO (10:36)
[2020-07-06] MEDS ORDERED: ALDA50TA2 PO (10:36)
[2020-07-06] MEDS ORDERED: TORS20TA2 PO (10:36)
[2020-07-06] MEDS ORDERED: POTA1TAB14 PO (10:36)
[2020-07-06] MEDS ORDERED: XARE20TA PO (10:36)
[2020-07-06] MEDS ORDERED: RAME8TAB2 PO (10:36)
[2020-07-06] MEDS ORDERED: POTASSIUM CHLORIDE 10 MEQ SR TABLET PO SCH (11:00)
--- NOTE | 2020-07-06 13:45 | DS.PDOC ---
Discharge Summary General Date of Admission Jun 25, 2020 at 09:27 Date of Discharge Jul 06, 2020 Attending Physician: PHILIP SULLIVAN MD Specialist/Consultants Involve: Cliff An MD Specialist/Consultants Involve Sridhar Castrejon - Urology Shamar Conteh - Nephrology Discharge Summary PROCEDURES PERFORMED DURING STAY: None. ADMITTING DIAGNOSES: # Altered mental status / Acute metabolic encephalopathy - likely 2/2 infection. # Possibly decompensated CHF exacerbation. # Paroxysmal atrial fibrillation. # Possible underlying NETTE. # Leukocytosis # Recovering from pneumonia # Lymphedema DISCHARGE DIAGNOSES: # Paroxysmal atrial fibrillation with RVR with h/o atrial fibrillation # Urinary tract infection # R staghorn calculus # Electrolyte disturbances # Altered mental status/acute metabolic encephalopathy COMPLICATIONS/CHIEF COMPLAINT: Generalized Weakness. HISTORY OF PRESENT ILLNESS: Pt is a 65YO M who presents today with right hip pain. He was recently discharged from the hospital on June 14, 2020 due to multiple medical problems including gross hematuria, metabolic encephalopathy, UTI, bilateral pneumonia, atrial fibrillation, lower extremity lymphedema, fungal infection, depression, Stage II decubitus ulcers, and morbid obesity. Upon admission, pt and pt's chronic indwelling Crowell catheter (indication unknown at this time) was covered in dry feces. ER team cleaned pt and changed Crowell catheter. Pt's baseline mental status is unknown, and history was difficult to elicit. He was repeatedly asking for food, and denied chest pain, shortness of breath, nausea, vomiting, diarrhea, or constipation. Pt reports living at home with his girlfriend and her son. He reports a prior left hip repair and states that he would like an intervention for his right hip pain. ER staff state that he calls EMS multiple times to help with moving in his chair at home. Pt states that he is not in acute distress at this time, but would like food. Pt's CT chest was showed slight worsening of ground-glass opacities from discharge from last admission. Pt lives at home with girlfriend and her son. Difficult to obtain history due to altered mental status and garbled speech. According to prior records, pt is seen by Dr. Leach and has been a smoker for 46 years, quit last year. He denied alcohol or illicit drug use on 06/10/2020. He uses a walker at baseline according to that note by Dr. Charlie Sanchez. Upon history today, pt stated that he sits in his recliner for most of the day. And that he does not receive additional medical care for daily activities. HOSPITAL COURSE: Patient was initially admitted due to decompensated CHF as evidenced by generalized anasarca and slightly worsened chest CT. On admission it was difficult to assess whether patient's mental status was baseline or if he was altered. He was difficult to understand due to garbled speech and expressed tardive dyskinesia-like movements (facial tic, lip licking and smacking) and as a result, Sertraline was discontinued (evidence of some association with tardive dyskinesia in geriatric population). Initial workup showed negative CT head, leukocytosis, and a positive UA. He was started on ceftriaxone. Despite this, patients leukocytosis continued to up trend during the beginning of patients stay so his ceftriaxone was discontinued and switched to cefepime and vancomycin for broad spectrum coverage while urine cultures were pending. Urine culture was positive for Enterobacter cloacae and Strep agalactiae so he was started on l evofloxacin. By day four, his mental status had improved due what we believe is treatment of his UTI and discontinuation of his SSRI. At time of admission, there was initially concern on chest CT for an infectious source vs fluid overload. Procalcitonin and COVID were negative, so patient was started on Lasix and fluid restrictions due to fluid overload with 16 L output during the first 3 days. Out of concern for nephrotic syndrome, nephrology was consulted. However, they ultimately deemed the reason for his sub-nephrotic proteinuria was secondary to his chronic cystitis. On review of CT from 06/2018 and 05/2020, it was noted he had staghorn calculi so urology was consulted out of concern of this being a possible nidus of infection with recommendations of ou tpatient PCNL on discharge. His diuretics needed to be adjusted multiple times during his hospital stay due to electrolyte disturbances (hypokalemia, hyponatremia). Ultimately patient was placed on PO Torsemide and spironolactone due to hypokalemia. Patient was tested for COVID several times during hospital course (due to ground glass opacities on CT chest), which were negative, prior to discharge for placement to [facility], [place]. During hospitalization, patient had an episode of atrial fibrillation with RVR and was given one dose of IV metoprolol and his PO metoprolol was continued. His metoprolol was later changed to 25 mg metoprolol PO BID. Patient reported that his home dose of Xarelto was stopped due to gross hematuria so he was initially anticoagulated on Heparin drip. Due to his elevated PTT, Heparin drip was held, re-started and eventually pt was bridged to home medication dose of Xarelto. DISCHARGE MEDICATIONS: Please see below. ALLERGIES: Please see below. PHYSICAL EXAMINATION ON DISCHARGE: VITAL SIGNS: Please see below. GENERAL: Patient is alert, cooperative, and in no acute distress. HEENT: NC/AT. Conjunctiva and lids normal. EOMI. Nares patent. NECK: No JVD. CARDIOVASCULAR EXAMINATION: Regular rate and rhythm. No murmurs, rubs, or gallops. RESPIRATORY EXAMINATION: Clear to auscultation. No wheezing. ABDOMINAL EXAMINATION: Soft abdomen and non-tender to palpation. Abdomen distended with central abdominal hernia. Panniculitis EXTREMITIES: BLE 1+ pitting edema up to knees with chronic venous stasis hyperpigmentation. SKIN: Macerations on L posterior thigh, erythema of medial buttocks, no open ulcerations. Onycholysis present to bilateral toenails. NEUROLOGICAL EXAMINATION: Patient is able to have full conversation. Normal tone. Sensation intact. PSYCHIATRIC EXAMINATION: A&O x3. LABORATORY DATA: Please see below. IMAGING: Hip/Pelvis X-ray (06/25/20): Advanced osteoarthritic changes at R hip, a similar appearance noted [address] Brittaney Thomas. CXR (06/25/20): Persistent b/l hazy and patchy pulmonary infiltrates, slightly worse at this time, compared to chest films done 4 weeks ago. Findings compatible with Covid pneumonia, eg. clinical and lab correlation are suggested. Per Dr. Brittaney Thomas. Head CT (06/25/20): Mild volume loss and small vessel ischemic changes. No acute intracranial abnormality given limitation of overlying artifact. Per Dr. Vicky Stahl. Chest CT (06/25/20): Multiple areas of ground-glass densities/airspace opacities of b/l lungs progressed from prior study representing multi lobar pneumonia including COVID-19 infection, clinical correlation is recommended. Small b/l pleural effusions. Per Dr. Vicky Stahl. CXR (06/27/20): Bilateral airspace disease similar to prior examination. Cannot exclude layering left effusion. Per Dr. Drew Rosario. Head CT (06/27/20): No acute intracranial abnormality. Per Dr. David Cabral. PROGNOSIS: Fair ACTIVITY: As tolerated. DIET: Continue 2g sodium diet. 1000 ml/24 hr fluid restriction DISCHARGE PLAN: Discharge to [facility]. DISCHARGE INSTRUCTIONS: 1. Follow 2 g sodium diet 2. Follow 2000 ml/24 hr fluid restriction 3. Continue spironolactone 50 mg PO BID, metoprolol 25 mg PO BID, KCl PO once daily, [place]el[place] 8 mg at bedtine, torsemide 20 mg PO Q24H, and Xarelto 20mg at bedtime. 4. Remain compliant with treatment plan and medications 5. Return to the ER if you experience any problems ITEMS TO FOLLOWUP ON ON OUTPATIENT: 1. Patient needs follow up regarding prevention of decubitus ulcers where there are skin macerations. 2. Follow up with urology regarding outpatient PCNL for staghorn calculi. 3. Follow up with PCP for establishing care. 4. Follow up with nephrology in 2 weeks. DISCHARGE CONDITION: Stable. TIME SPENT ON DISCHARGE: 35 minutes. Vital Signs/I&Os Vital Signs Date Time Temp Pulse Resp B/P (MAP) Pulse Ox O2 Delivery O2 Flow Rate FiO2 07/06/20 09:00 85 102/65 07/06/20 06:00 97.2 20 99 Room Air 07/03/20 06:00 2.0 I&O- Last 24 Hours up to 6 AM 07/06/20 06:00 Intake Total 1500 ml Output Total 2600 ml Balance -1100 ml Laboratory Data Labs 24H Laboratory Tests 2 07/05/20 09:47: Coronavirus (COVID-19)(PCR) NEGATIVE Microbiology Microbiology 06/28/20 Respiratory Virus Panel (PCR) (ANATOLIY) - Final, Complete 06/27/20 Urine Culture - Final, Complete Enterobacter Cloacae Ssp Cloac Discharge Medications Scheduled Metoprolol Succinate (Metoprolol Succinate) 25 Mg Tab.er.24h, 25 MG PO BID Potassium Chloride (Potassium Chloride) 20 Meq Tablet.er, 1 TAB PO DAILY Ramelteon (Ramelteon) 8 Mg Tablet, 8 MG PO QHS Rivaroxaban (Xarelto) 20 Mg Tablet, 20 MG PO QHS Spironolactone (Aldactone) 50 Mg Tablet, 50 MG PO BID Torsemide (Torsemide) 20 Mg Tablet, 40 MG PO DAILY Scheduled PRN Nystatin (Nystatin Powder) 15 Gm Powder, 1 DOSE TOP TID PRN for RASH, (Reported) APPLY TO STOMACH FOLDS AND UNDERARMS Allergies Coded Allergies: No Known Allergies (Verified , 07/12/07) GME ATTESTATION GME ATTESTATION My faculty preceptor for this patient encounter was physically present during the encounter and was fully available. All aspects of the patient interview, examination, medical decision making process, and medical care plan development were reviewed and approved by the faculty preceptor. The faculty preceptor is aware and concurs with the plan as stated in the body of this note and will attest to such by his/her cosignature. ATTENDING NOTE I, Philip Sullivan, have independently examined this patient and performed my own physical exam, as well as reviewed the documentation and edited where necessary. I have discussed in detail with the resident / student the findings and plan of treatment as documented by the resident / student and edited their note. I agree with their findings and treatment plan and have edited their documentation. I will continue to follow the patient during this hospital stay. Time spent on discharge 35 minutes Shelley CUELLAR OMS-3 Jul 06, 2020 11:43 Alli Hahn DO Jul 06, 2020 13:45 PHILIP SULLIVAN MD Jul 06, 2020 14:32
--- NOTE | 2020-07-06 14:16 | IPN ---
PROGRESS NOTE DATE: 07/06/2020 SUBJECTIVE: The patient is seen and examined today morning at the bedside. He reports his edema is getting better, he is more mobile. Renal function is stable. He continues to be on oral diuretics. OBJECTIVE: VITAL SIGNS: Temperature is 97.2 degrees Fahrenheit, blood pressure is 104/65, pulse is 78, respiratory rate is 20, saturating 99% on room air. INTAKE AND OUTPUT: Urine output recorded as 2.6 liters yesterday, 350 ml so far today since overnight. Weight on the bed scale is not available. GENERAL: Patient is awake, alert and oriented x3, morbidly obese, laying in bed. HEAD AND NECK: Extraocular muscles intact. Pupils equally, round and reactive to light. Mucous membranes are moist. Neck is supple, mildly elevated JVD. CARDIOVASCULAR: S1 and S2, regular rate, 1+ edema of the bilateral lower extremities. CHEST: Clear to auscultation bilaterally. Bilateral equal air entry. No rales or rhonchi. ABDOMEN: Soft, morbidly obese. Abdominal wall edema in the flanks is noted. GENITOURINARY: He has an indwelling Crowell catheter. MUSCULOSKELETAL: He has chronic venous stasis changes and 1+ edema of the lower extremities up to the thighs. OFFICE AGENT: No focal deficit. Power is 5/5 in all extremities. Patient is forgetful. LABORATORY DATA: CBC was from yesterday. BMP done today morning showed a sodium of 134, potassium 3.4, chloride 97, bicarbonate 32. BUN 20, creatinine is 0.9. Calcium is 8.4, phosphorus is 2.9. CURRENT INPATIENT MEDICATIONS: The patient's medications were all reviewed by myself. He continues to be on torsemide and spironolactone. I have started him on potassium chloride 40 mEq p.o. daily. No other significant change in the medications. Levaquin has been stopped now. ASSESSMENT AND PLAN: 1. Generalized anasarca and decompensated CHF. It is significantly better with current combination of torsemide and spironolactone. Continue current dose at this time. 2. Hypokalemia, continue spironolactone. Potassium chloride 40 mEq p.o. daily has been started today. 3. Proteinuria, no need of renal biopsy. He is not a candidate for any immunosuppression at this time. 4. Atrial fibrillation, heart rate is controlled with anticoagulation and Xarelto. 5. Disposition, the patient is optimized to be discharged to rehab today.
[2020-07-06] MEDS ORDERED: RAMELTEON 8 MG TAB (ROZEREM) PO SCH (21:00)
[2020-07-10 20:07] LABS: ACETYLCHOLINE RCPTOR BLOCK AB 21 % (0-25); ACETYLCHOLINE RCPTOR MODULATIN <12 % (0-20)
== END 2020-07-06 14:58 | DRG 291 ==
LOC: M ED 02:50 → EEVIPCON 09:27 → M ED INP 09:27 → M MSPAV 11:20 → M PCU 06-27 10:01 → M MSPAV 07-01 20:54
PROVIDERS: ADMIT Internal Medicine; ATTEND Internal Medicine
DX: I50.9 Heart failure, unspecified (principal); G93.41 Metabolic encephalopathy; Z68.43 Body mass index [BMI] 50.0-59.9, adult; E87.1 Hypo-osmolality and hyponatremia; E66.01 Morbid (severe) obesity due to excess calories; I48.0 Paroxysmal atrial fibrillation; F32.9 Major depressive disorder, single episode, unspecified; I89.0 Lymphedema, not elsewhere classified; I87.2 Venous insufficiency (chronic) (peripheral); I73.9 Peripheral vascular disease, unspecified; G24.01 Drug induced subacute dyskinesia; D64.9 Anemia, unspecified; G47.00 Insomnia, unspecified; G47.33 Obstructive sleep apnea (adult) (pediatric); R80.9 Proteinuria, unspecified; E87.6 Hypokalemia; T43.225A Adverse effect of selective serotonin reuptake inhibitors, initial encounter; N30.20 Other chronic cystitis without hematuria; N20.0 Calculus of kidney; E83.51 Hypocalcemia; B95.2 Enterococcus as the cause of diseases classified elsewhere; L30.4 Erythema intertrigo; M79.3 Panniculitis, unspecified; L89.302 Pressure ulcer of unspecified buttock, stage 2; Z96.642 Presence of left artificial hip joint; Z20.822 Contact with and (suspected) exposure to COVID-19; Z90.49 Acquired absence of other specified parts of digestive tract; Z87.891 Personal history of nicotine dependence; Z79.899 Other long term (current) drug therapy

== ENCOUNTER 2020-07-16 16:46 | Inpatient (IN) | payer MEDICARE ==
[~2020-07-16] VITALS: Ht 170.2 cm; Wt 152.0 kg
[~2020-07-16 16:46] MED LIST changes: +ALDA50TA2 PO; +METO1TAB32 PO; +POTA1TAB14 PO; +RAME8TAB2 PO; +TORS20TA2 PO; +ZOLO100T PO
[2020-07-16] MEDS ORDERED: MORPHINE 4 MG/ML 1ML VIAL/SYRINGE (J2270) IV ONE (17:30)
[2020-07-16 18:26] LABS: BASO # 0.1 10^3/uL (0.0-0.2); BASO % 0.6 % (0.0-1.0); EOS # 0.3 10^3/uL (0.0-0.5); EOS % 2.8 % (0.0-3.0); HEMATOCRIT 37.1 % (42.0-52.0); HEMOGLOBIN 11.7 g/dl (13.5-17.5); LYMPH # 1.2 10^3/uL (1.5-5.0); LYMPH % 11.5 % (24.0-44.0); MEAN CORPUSCULAR HEMOGLOBIN 28.8 pg (27.0-33.0); MEAN CORPUSCULAR HGB CONC 31.5 g/dl (32.0-36.5); MEAN CORPUSCULAR VOLUME 91.4 fl (80.0-96.0); NEUTROPHILS # 7.5 10^3/uL (1.5-8.5); NEUTROPHILS % 73.4 % (36.0-66.0); PLATELET COUNT, AUTOMATED 162 10^3/uL (150-450); RED BLOOD COUNT 4.06 10^6/uL (4.30-6.10); WHITE BLOOD COUNT 10.2 10^3/uL (4.0-10.0)
[2020-07-16] MEDS ORDERED: ISOVUE-370 76% 100ML VIAL As Ordered ONE (18:39)
[2020-07-16 18:52] LABS: ERYTHROCYTE SEDIMENTATION RATE 74 mm/hr (0-20)
--- NOTE | 2020-07-16 19:34 | REPVR ---
PROCEDURE INFORMATION: Exam: CT Abdomen And Pelvis With Contrast Exam date and time: 07/16/2020 6:45 PM Age: 65 years old Clinical indication: Other: Rectal pain; Additional info: Rectal pain, not well visualized, morbid obesity TECHNIQUE: Imaging protocol: Computed tomography of the abdomen and pelvis with contrast. Radiation optimization: All CT scans at this facility use at least one of these dose optimization techniques: automated exposure control; mA and/or kV adjustment per patient size (includes targeted exams where dose is matched to clinical indication); or iterative reconstruction. Contrast material: ISOVUE 370; Contrast volume: 100 ml; Contrast route: INTRAVENOUS (IV); COMPARISON: CT ABD PELVIS W/O CONTRAST 06/10/2020 8:43 AM FINDINGS: Lungs: Mild bibasilar dependent atelectasis of the lung bases. Liver: Unremarkable. Gallbladder and bile ducts: Unremarkable. No ductal dilation. Pancreas: Unremarkable. No ductal dilation. Spleen: Unremarkable. Adrenal glands: Normal. No mass. Kidneys and ureters: Fat stranding surrounding the right renal pelvis and proximal ureter. No hydronephrosis. Large staghorn calculus in the right renal pelvis measuring approximately 4 cm. Stomach and bowel: Moderate stool burden in the rectum and sigmoid colon. Mild colonic diverticulosis. Large ventral abdominal wall hernia containing multiple loops of bowel without evidence of obstruction. Appendix: No evidence of appendicitis. Intraperitoneal space: No pneumoperitoneum. No significant fluid collection. Vasculature: Unremarkable. Lymph nodes: No enlarged lymph nodes. Urinary bladder: The bladder is decompressed by presence of Crowell catheter. Reproductive: Unremarkable as visualized. Bones/joints: Severe osteoarthritic changes of the right hip. Total left hip arthroplasty. Multilevel degenerative changes of the visualized spine. No acute osseous lesion or fracture. Soft tissues: Unremarkable. IMPRESSION: 1. Large 4 cm staghorn calculus in the right renal pelvis. Adjacent fat stranding to the right renal pelvis and proximal ureter suggest possible superimposed acute pyelitis. 2. Moderate stool burden in the rectum and colon. Correlate clinically for history of constipation. 3. Other chronic findings, as above. Electronically signed by: Geovani Richter On 07/16/2020 19:35:25 PM
[2020-07-16 20:37] LABS: APPEARANCE, URINE CLOUDY (CLEAR); BACTERIA, URINE AUTO 1+ (NEGATIVE); BILIRUBIN, URINE AUTO NEGATIVE (NEGATIVE); BLOOD, URINE BLOOD 3+ (NEGATIVE); COLOR, URINE YELLOW (YELLOW); GLUCOSE, URINE (UA) AUTO NEGATIVE (NEGATIVE); KETONE, URINE AUTO NEGATIVE (NEGATIVE); LEUKOCYTE ESTERASE, URINE AUTO 3+ (NEGATIVE); MUCUS, URINE SMALL (NEGATIVE); NITRITE, URINE AUTO NEGATIVE (NEGATIVE); PROTEIN, URINE AUTO 1+ mg/dL (NEGATIVE); RBC, URINE AUTO TNTC /HPF (0-3); SPECIFIC GRAVITY URINE AUTO 1.032 (1.002-1.035); SQUAMOUS EPITHELIAL CELL UR AU 1 /HPF (0-6); UROBILINOGEN, URINE AUTO 0.2 mg/dL (0.0-2.0); WBC, URINE AUTO 115 /HPF (0-3)
[2020-07-16] MEDS ORDERED: RIVAROXABAN 20 MG TAB (XARELTO) PO SCH (21:00)
[2020-07-16] MEDS ORDERED: MOM 30ML SUSPENSION UDC PO PRN (22:25)
[2020-07-16] MEDS ORDERED: ACETAMINOPHEN TAB 650MG DOSE (2X325MG) PO PRN (22:25)
[2020-07-16] MEDS ORDERED: FLEET ENEMA PR PRN (22:25)
[2020-07-16] MEDS ORDERED: cefTRIAXone SOD 1 GM in D5W MINI-BAG PLUS 50 ML IV SCH (23:00)
[2020-07-16] MEDS ORDERED: POTA20TA6 PO (23:51)
[2020-07-16] MEDS ORDERED: ROZE8TAB16 PO (23:51)
[2020-07-16] MEDS ORDERED: SPIR50TA4 PO (23:51)
[2020-07-16] MEDS ORDERED: TORS20TA2 PO (23:51)
[2020-07-16] MEDS ORDERED: METO1TAB32 PO (23:51)
[2020-07-16] MEDS ORDERED: XARE20TA PO (23:51)
[2020-07-16] MEDS ORDERED: PATIENT COMMENT (23:53)
[2020-07-17] MEDS ORDERED: diphenhydrAMINE 50MG/ML VIAL (J1200) IM PRN
[2020-07-17] MEDS ORDERED: EPINEPHrine INJ 1 MG/ML 1ML AMP IM PRN
[2020-07-17] MEDS ORDERED: NYSTATIN 100,000 UNITS/GM TOPICAL PWD 15 GM TOP PRN (00:10)
[2020-07-17] MEDS: RAMELTEON 8 MG TAB (ROZEREM) PO SCH ×2 (00:50→21:50)
[2020-07-17] MEDS: METOPROLOL SUCC *XL* 25MG TAB (TopROL *XL*) PO SCH ×3 (00:51→21:00)
--- NOTE | 2020-07-17 00:51 | HPEPDOC ---
[facility] Medical History & Physical Date of Admission Jul 16, 2020 Date of Service: Jul 16, 2020 Attending Physician: ANUP SOL MD History and Physical CHIEF COMPLAINT: rectal pain HISTORY OF PRESENT ILLNESS: 65 year old male with PMHx noted below presented to the ED with 3 day history of rectal pain and constipation. Patient states he has intermittent constipation at home for which he takes milk of magnesia as needed. He states he has tried this twice in the past few days without any relief. He reports some generalized abdominal discomfort. Denies any localized abdominal pain. Denies nausea, vomiting, hematochezia, melena, change in appetite. Patient reports chronic hematuria and indwelling mccarthy catheter. Patient denies fevers, chills, change in urine appearance, change in urine output. PAST MEDICAL HISTORY: Paroxysmal atrial fibrillation on Xarelto Depression Morbid obesity Lower extremity edema PVD Chronic anemia Insomnia Staghorn calculus in right renal pelvis with gross hematuria Chronic indwelling mccarthy catheter PAST SURGICAL HISTORY: left hip replacement hernia repair cholecystectomy appendectomy SOCIAL HISTORY: Former smoker of 46 years 1-1.5 ppd quit 7 months ago. Denies alcohol use. Denies illicit and IV drug use. Lives at home with girlfriend and her son. Uses a walker at baseline. FAMILY HISTORY: Mother in 70s, had diabetes and heart disease. ALLERGIES: Please see below. REVIEW OF SYSTEMS: CONSTITUTIONAL: Denies fevers, chills, night sweats, fatigue, unexpected change in weight. HEENT: Denies change in vision, change in hearing. CARDIOVASCULAR: Denies chest pain, palpitations, shortness of breath, lightheadedness. RESPIRATORY: Denies dyspnea, cough, wheezing. GASTROINTESTINAL: As noted in HPI GENITOURINARY: As noted in HPI. SKIN: Denies rash, lesions. MUSCULOSKELETAL: Endorses chronic hip pain. NEUROLOGICAL: Denies headache, dizziness, weakness. PSYCHIATRIC: Denies change in mood. HOME MEDICATIONS: Please see below. PHYSICAL EXAMINATION: VITAL SIGNS: See below. GENERAL: Alert, comfortable, in no acute distress HEENT: Normocephalic, atraumatic, sclera anicteric, moist mucous membranes NECK: Supple, trachea midline CARDIOVASCULAR: Regular rate and rhythm, normal S1 and S2. No murmurs, rubs, or gallops RESPIRATORY: Clear to auscultation bilaterally with equal air entry bilaterally. No wheezing, rhonchi, or rales. ABDOMEN: Obese, soft, nontender, nondistended, bowel sounds present, large hernia present on the left side of the abdomen which is nontender. EXTREMITIES: 1+ pitting edema in bilateral lower extremities SKIN: Dermatitis stasis over bilateral lower legs and feet. NEUROLOGIC: Alert and oriented x3 to person, place and time. No focal deficits appreciated PSYCHIATRIC: Mood and affect appropriate LABORATORY DATA: See below. IMAGING: - CT abdomen/pelvis (impression per radiologist report) 1. Large 4 cm staghorn calculus in the right renal pelvis. Adjacent fat stranding to the right renal pelvis and proximal ureter suggest possible superimposed acute pyelitis. 2. Moderate stool burden in the rectum and colon. Correlate clinically for history of constipation. 3. Other chronic findings, as [noted in full report] MICROBIOLOGY: Please see below. ASSESSMENT: 65 year old male with PMHx of paroxysmal atrial fibrillation, PVD, LE edema, chronic anemia, staghorn calculus in right renal pelvis, chronic mccarthy, depression, insomnia, and obesity who presented with three days of rectal pain and no bowel movement found to have UTI on UA with pyelitis seen on CT imaging, admitted for management of constipation and complicated pyelonephritis. PLAN: 1. Rectal pain 2/2 constipation - fleet enema daily prn for bowel movement - scheduled colace to help prevent constipation 2. Complicated pyelonephritis with staghorn calculus in the right renal pelvis - UA with WBCs and leukocyte esterase. Urine culture pending. - initially started on IV ceftriaxone for abx coverage. Prior cultures have grown Enterobacter cloacae which is resistant to cephalosporins. Abx switched to levaquin IV 500mg daily. - staghorn calculus is chronic, patient follows outpatient with urology - Urology consult in AM to evaluate for percutaneous nephrolithotomy. 3. Paroxysmal atrial fibrillation - continue home metoprolol. Hold home xarelto for possible procedure. - patient with chronic gross hematuria likely related to renal stone and anticoagulation use. H/H stable at baseline. 4. Chronic anemia - H/H at baseline of 11-12 - monitor CBC daily 5. Lower extremity edema - continue home spironolactone and torsemide - monitor BMP daily 6. Depression with insomnia - continue home ramelteon 7. Morbid obesity -BMI 52, complicates care DVT prophylaxis: Teds and SCDs for possible procedure Disposition: admitted for observation to med/surg pending clinical improvement ATTENDING PHYSICIAN NOTE/ADDENDUM: Acute Blood Loss Anemia Gross Hematuria secondary to kidney stone CkD3, at baseline creatinine -Hold xarelto if becomes symptomatic or ongoing blood loss. Defer to urology for timing of PNL. I have independently interviewed and examined this patient at the bedside, and agree with the physical findings, assessment, and management plan as documented by my Resident physician above. The patient's concerns and questions have been satisfactorily addressed. Vital Signs Vital Signs Date Time Temp Pulse Resp B/P (MAP) Pulse Ox O2 Delivery O2 Flow Rate FiO2 07/16/20 20:18 98.2 58 16 125/80 (95) 98 Room Air Laboratory Data Labs 24H Laboratory Tests 2 07/16/20 17:54: Immature Granulocyte % (Auto) 1.7, Neutrophils (%) (Auto) 73.4H, Lymphocytes (%) (Auto) 11.5L, Monocytes (%) (Auto) 10.0H, Eosinophils (%) (Auto) 2.8, Basophils (%) (Auto) 0.6, Neutrophils # (Auto) 7.5, Lymphocytes # (Auto) 1.2L, Monocytes # (Auto) 1.0H, Eosinophils # (Auto) 0.3, Basophils # (Auto) 0.1, Nucleated Red Blood Cells % (auto) 0.0, Erythrocyte Sedimentation Rate 74H, C-Reactive Protein, Quantitative 2.90H 07/16/20 18:05: POC Glucose (Misc Panel) 100, POC Sodium (Misc Panel) 134L, POC Potassium (Misc Panel) 4.1, POC Chloride (Misc Panel) 96L, POC Total CO2 (Misc Panel) 32.0H, POC Blood Urea Nitrogen (Misc Panel 27H, POC Ionized Calcium (Misc Panel) 4.2L, POC Creatinine (Misc Panel) 1.1, POC Hematocrit (Misc Panel) 36.0L 07/16/20 20:07: Urine Color YELLOW, Urine Appearance CLOUDYH, Urine pH 6.0, Urine Specific [place] 1.032, Urine Protein 1+H, Urine Glucose (Auto)(UA) NEGATIVE, Urine Ketones (Auto) NEGATIVE, Urine Blood 3+H, Urine Nitrite NEGATIVE, Urine Bilirubin NEGATIVE, Urine Urobilinogen 0.2, Urine Leukocyte Esterase (Auto) 3+H, Urine WBC (Auto) 115H, Urine RBC (Auto) TNTCH, Urine Hyaline Casts (Auto) 5, Urine Bacteria (Auto) 1+H, Urine Squamous Epithelial Cells 1, Urine Mucus (Auto) SMALL, Urine Yeast-Like Cells (Auto) SMALLH, Urine Sperm (Auto) CBC/BMP Laboratory Tests 07/16/20 17:54 Microbiology Microbiology 07/16/20 Urine Culture, Received Pending 07/16/20 Blood Culture, Received Pending 07/16/20 Blood Culture, Received Pending Home Medications Scheduled Metoprolol Succinate (Metoprolol Succinate) 25 Mg Tab.er.24h, 25 MG PO BID Potassium Chloride (Potassium Chloride) 20 Meq Tab.er.prt, 20 MEQ PO DAILY Ramelteon (Rozerem) 8 Mg Tablet, 8 MG PO QHS Rivaroxaban (Xarelto) 20 Mg Tablet, 20 MG PO QHS Spironolactone (Spironolactone) 50 Mg Tablet, 50 MG PO BID Torsemide (Torsemide) 20 Mg Tablet, 40 MG PO DAILY Scheduled PRN Nystatin (Nystatin Powder) 15 Gm Powder, 1 DOSE TOP TID PRN for RASH APPLY TO STOMACH FOLDS AND UNDERARMS Miscellaneous Medications [Patient Comment] MED REC COMPLETED VIA PREVIOUS DISCHARGE PAPERWORK (07/06/20) Allergies Coded Allergies: No Known Allergies (Verified , 07/12/07) A-FIB/CHADSVASC A-FIB History Current/History of A-Fib/PAF?: Yes Current PO Anticoag Therapy: Yes OUSMANE BAIG D.O. Jul 17, 2020 00:39 ANUP SOL MD Jul 17, 2020 05:36
[2020-07-17] MEDS ORDERED: METAL LOCK LOOP XX ONE (00:57)
[2020-07-17 02:00] VITALS: BP 128/72
[2020-07-17 05:40] LABS: HEMATOCRIT 36.4 % (42.0-52.0); HEMOGLOBIN 11.6 g/dl (13.5-17.5); MEAN CORPUSCULAR HEMOGLOBIN 29.3 pg (27.0-33.0); MEAN CORPUSCULAR HGB CONC 31.9 g/dl (32.0-36.5); MEAN CORPUSCULAR VOLUME 91.9 fl (80.0-96.0); PLATELET COUNT, AUTOMATED 151 10^3/uL (150-450); RED BLOOD COUNT 3.96 10^6/uL (4.30-6.10); WHITE BLOOD COUNT 11.1 10^3/uL (4.0-10.0)
[2020-07-17 06:00] VITALS: BP 117/69
[2020-07-17 06:01] LABS: BLOOD UREA NITROGEN 24 MG/DL (7-18); CALCIUM LEVEL 8.1 MG/DL (8.8-10.2); CARBON DIOXIDE LEVEL 29 MEQ/L (21-32); CHLORIDE LEVEL 94 MEQ/L (98-107); GLOMERULAR FILTRATION RATE > 60.0 (>49); GLUCOSE, FASTING 90 MG/DL (70-100); POTASSIUM SERUM 4.1 MEQ/L (3.5-5.1); SODIUM LEVEL 130 MEQ/L (136-145)
[2020-07-17] MEDS: LevoFLOXacin IV 500 MG in IV 1 EA IV SCH (06:34)
[2020-07-17] MEDS: SPIRONOLACTONE 50 MG TAB PO SCH ×2 (08:34→16:49)
[2020-07-17] MEDS: DOCUSATE SODIUM 100MG CAPSULE PO SCH ×2 (08:34→21:50)
[2020-07-17] MEDS ORDERED: TORSEMIDE 20 MG TAB PO SCH (09:00)
--- NOTE | 2020-07-17 10:02 | IPNPDOC ---
Text Note Date of Service The patient was seen on 07/17/20. NOTE Subjective: No acute events overnight. Patient states that he has not had a BM yet. Admits to rectal pain and abdominal pressure. Patient states that he has been eating and drinking without difficulty. Denies any flank pain, dysuria, headache, chest pain, SOB. Objective: VITALS: See below. GENERAL: Patient is laying comfortably at rest. No acute distress. HEENT: NC/AT. EOMI. Conjunctiva and lids normal. CARDIOVASCULAR: Regular rate and rhythm. Normal S1 and S2. No murmurs, rubs, or gallops appreciated. PULMONARY: Lungs clear to auscultation bilaterally. Good air movement. No wheezes, rales or rhonchi appreciated. ABDOMEN: Obese. Soft, non-tender to palpation. Large abdominal hernia to L side of umbilicus. Bowel sounds present in all four quadrants, hyperactive. No flank tenderness. EXTREMITIES: 1+ pitting edema to BLE / Chronic venous stasis changes SKIN: Venous stasis skin hyperpigmentation to BLE. Assessment/Plan: Patient is a 65 year old male with past medical history of paroxysmal atrial fibrillation, PVD, BLE edema, chronic anemia, staghorn calculus in R renal pelvis, chronic mccarthy, depression, insomnia, and obesity who presented to the ED due to three day hx of rectal pain and constipation. He was found to have a UTI on UA with pyelitis seen on CT imaging. Patient was admitted for management of constipation and complicated pyelonephritis. #Rectal pain 2/2 constipation - Fleet enema daily PRN. - Colace to help prevent constipation. - Milk of magnesia PRN. - Will add lactulose to induce 1-2 BM daily #Complicated pyelonephritis with staghorn calculus in R renal pelvis - UA with WBCs and leukocyte esterase. Urine culture pending. - Abx switched to Levofloxacin 500 mg IV from IV ceftriaxone due to prior cultures having grown Enterobacter cloacae which is resistant to cephalosporins. - Patient has chronic gross hematuria 2/2 renal stone and anticoagulant use. - Staghorn calculus is chronic and patient follows urology outpatient. - Urology has been consulted and will evaluate patient this morning for possible percutaneous nephrolithotomy. #Paroxysmal atrial fibrillation - Will continue home metoprolol. - Xarelto will be held due to possible procedure. Will continue Xarelto if urology does not plan on PNL. - Will resume within 24 hours #Chronic anemia - H/H at baseline of 11-12. - Will continue to monitor CBC daily. #Lower extremity edema - Currently appears chronic - Will continue home spironolactone and torsemide. - 2 g sodium diet. - Will monitor BMP daily. #Depression with insomnia - Continue home Ramelteon. # Morbid obesity - Complicating care, BMI 52.5. DVT Prophylaxis: Teds and SCDs for possible procedure. Disposition: Dr. Del Castillo, urology, to consult this morning regarding possible PNL. Will continue PRN fleet enema, Colace, and milk of magnesia. Plan to keep patient in observation for another day. VS,Fishbone, I+O VS, Fishbone, I+O Laboratory Tests 07/16/20 17:54 07/17/20 05:20 Vital Signs Date Time Temp Pulse Resp B/P (MAP) Pulse Ox O2 Delivery O2 Flow Rate FiO2 07/17/20 08:34 67 136/73 07/17/20 06:00 97.5 18 96 Room Air I&O- Last 24 Hours up to 6 AM 07/17/20 06:00 Intake Total 50 ml Output Total 750 ml Balance -700 ml GME ATTESTATION GME ATTESTATION My faculty preceptor for this patient encounter was physically present during the encounter and was fully available. All aspects of the patient interview, examination, medical decision making process, and medical care plan development were reviewed and approved by the faculty preceptor. The faculty preceptor is aware and concurs with the plan as stated in the body of this note and will attest to such by his/her cosignature. ATTENDING NOTE I, Philip Sullivan, have independently examined this patient and performed my own physical exam, as well as reviewed the documentation and edited where necessary. I have discussed in detail with the resident / student the findings and plan of treatment as documented by the resident / student and edited their note. I agree with their findings and treatment plan and have edited their documentation. I will continue to follow the patient during this hospital stay. Shelley CUELLAR-3 Jul 17, 2020 10:02 PHILIP SULLIVAN MD Jul 17, 2020 11:01
[2020-07-17] MEDS: LACTULOSE 20 GM/30 ML SYRUP UD PO SCH ×2 (11:49→17:42)
[2020-07-17 14:00] VITALS: BP 117/75
[2020-07-17] MEDS ORDERED: COVID-19 VAC,AD26(JANSSEN)/PF 0.5ML SYRINGE (EUA) IM ONE (17:00)
--- NOTE | 2020-07-17 17:28 | SMCUROLCON ---
Urology Consultation General Date of Consultation 07/17/20 Reason For Consultation This patient is seen for UTI. History of Present Illness The patient is a [65]-year-old [man] with a past medical history for [kidney stones]. He came to ED for abdominal pain and constipation. He had a CT scan which revealed constipation and a 4 cm right staghorn without hydronephrosis but with some perinephric stranding suspicious for pyelonephritis. He reports that he has had the stone for at least 1 year and has some intermittent hematuria but no flank pain. He denies any nausea or vomiting. He has been treated for UTIs in the past and is reportedly mccarthy dependent. Medications Current Medications Current Medications Medications (Trade) Dose Ordered Sig/Anne Route PRN Reason Start Time Stop Time Status Last Admin Dose Admin Acetaminophen (Tylenol Tab) 650 mg Q4H PRN PO PAIN OR FEVER 07/16/20 22:25 Ceftriaxone Sodium 1 gm/ Dextrose 50 ml @ 100 mls/hr Q24H IV 07/16/20 23:00 07/17/20 00:35 DC 07/16/20 22:58 Diphenhydramine HCl (Benadryl) 50 mg ASDIRECTED PRN IM ANAPHYLAXIS 07/17/20 00:00 07/17/20 23:59 Docusate Sodium (Colace) 100 mg BID PO 07/17/20 09:00 07/17/20 08:34 Epinephrine HCl (Adrenalin) 0.3 mg ASDIRECTED PRN IM ANAPHYLAXIS 07/17/20 00:00 07/17/20 23:59 Home Med (Med Rec Complete!) ASDIRECTED XX 07/16/20 23:55 07/16/20 23:55 DC Lactulose (Cephulac) 30 ml Q6H PO 07/17/20 12:00 07/17/20 11:49 Levofloxacin 500 mg/IV Miscellaneous Supplies 100 ml @ 100 mls/hr Q24H IV 07/17/20 06:00 07/17/20 06:34 Magnesium Hydroxide (Milk Of Magnesia) 30 ml DAILY PRN PO CONSTIPATION 07/16/20 22:25 07/17/20 14:06 Metoprolol Succinate (TopROL XL) 25 mg BID PO 07/16/20 21:00 07/17/20 08:34 Nystatin (Mycostatin Powder, Nystop) APPLY TO STOMACHE FOLDS ... TID PRN TOP RASH 07/17/20 00:10 Ramelteon (Rozerem) 8 mg QHS PO 07/16/20 21:00 07/17/20 00:50 Rivaroxaban (Xarelto) 20 mg QHS PO 07/16/20 21:00 07/17/20 02:13 DC 07/17/20 00:50 Sodium Biphosphate/ Sodium Phosphate (Fleet Enema) 1 ea DAILYPRN PRN MO CONSTIPATION 07/16/20 22:25 07/17/20 03:54 Spironolactone (Aldactone) 50 mg BID@0900,1700 PO 07/17/20 09:00 07/17/20 16:49 Torsemide (Demadex) 40 mg DAILY PO 07/17/20 09:00 07/17/20 08:32 Allergies Allergies: Coded Allergies: No Known Allergies (Verified , 07/12/07) Physical Examination General Exam: Other (Obese) Abdomen Exam: Normal Bowel Sounds, Soft, Other (No focal tenderness) Extremity Exam: Edema Skin Exam: Other skin issue (changes consistent with peripheral vascular disease) Vital Signs/I&O Vital Signs Date Time Temp Pulse Resp B/P (MAP) Pulse Ox O2 Delivery O2 Flow Rate FiO2 07/17/20 14:00 97.6 63 20 117/75 (89) 99 Room Air I&O- Last 24 Hours up to 6 AM 07/17/20 06:00 Intake Total 50 ml Output Total 750 ml Balance -700 ml Laboratory Data 24H Labs Laboratory Tests 2 07/16/20 17:54: Immature Granulocyte % (Auto) 1.7, Neutrophils (%) (Auto) 73.4H, Lymphocytes (%) (Auto) 11.5L, Monocytes (%) (Auto) 10.0H, Eosinophils (%) (Auto) 2.8, Basophils (%) (Auto) 0.6, Neutrophils # (Auto) 7.5, Lymphocytes # (Auto) 1.2L, Monocytes # (Auto) 1.0H, Eosinophils # (Auto) 0.3, Basophils # (Auto) 0.1, Nucleated Red Blood Cells % (auto) 0.0, Erythrocyte Sedimentation Rate 74H, C-Reactive Protein, Quantitative 2.90H 07/16/20 18:05: POC Glucose (Misc Panel) 100, POC Sodium (Misc Panel) 134L, POC Potassium (Misc Panel) 4.1, POC Chloride (Misc Panel) 96L, POC Total CO2 (Misc Panel) 32.0H, POC Blood Urea Nitrogen (Misc Panel 27H, POC Ionized Calcium (Misc Panel) 4.2L, POC Creatinine (Misc Panel) 1.1, POC Hematocrit (Misc Panel) 36.0L 07/16/20 20:07: Urine Color YELLOW, Urine Appearance CLOUDYH, Urine pH 6.0, Urine Specific [place] 1.032, Urine Protein 1+H, Urine Glucose (Auto)(UA) NEGATIVE, Urine Ketones (Auto) NEGATIVE, Urine Blood 3+H, Urine Nitrite NEGATIVE, Urine Bilirubin NEGATIVE, Urine Urobilinogen 0.2, Urine Leukocyte Esterase (Auto) 3+H, Urine WBC (Auto) 115H, Urine RBC (Auto) TNTCH, Urine Hyaline Casts (Auto) 5, Urine Bacteria (Auto) 1+H, Urine Squamous Epithelial Cells 1, Urine Mucus (Auto) SMALL, Urine Yeast-Like Cells (Auto) SMALLH, Urine Sperm (Auto) 07/17/20 00:44: Coronavirus (COVID-19)(PCR) NEGATIVE 07/17/20 05:20: Nucleated Red Blood Cells % (auto) 0.0, Anion Gap 7L, Glomerular Filtration Rate > 60.0, Calcium Level 8.1L CBC/BMP Laboratory Tests 07/16/20 17:54 07/17/20 05:20 Microbiology Microbiology 07/16/20 Urine Culture - Preliminary, Resulted Yeast Like Organism 07/16/20 Blood Culture, Received Pending 07/16/20 Blood Culture, Received Pending Assessment 65 yo man with large right staghorn calculus and recent pyelonephritis. Plan He will need a right PCNL, which requires some planning. I am inclined to treat his pyelonephritis with Levaquin pending urine culture results. I will discuss CT findings with the team and make arrangements. Thanks for consult! ARUNA KAT MD Jul 17, 2020 17:28
[2020-07-17 22:00] VITALS: BP 117/76
[2020-07-18] MEDS: ONDANSETRON 4MG/2ML VIAL IV PRN ×2 (00:32→04:37)
[2020-07-18] MEDS: LACTULOSE 20 GM/30 ML SYRUP UD PO SCH ×2 (01:00→06:00)
--- NOTE | 2020-07-18 03:27 | REPVR ---
PROCEDURE INFORMATION: Exam: XR Abdomen Exam date and time: 07/18/2020 2:31 AM Age: 65 years old Clinical indication: Abdominal pain; Acute; Additional info: Abdominal pain, vomiting TECHNIQUE: Imaging protocol: XR of the abdomen. Views: Frontal supine view of the abdomen. 1 View. COMPARISON: [facility]/BILLIARY TREE ([facility]) 09/19/2016 11:52 AM FINDINGS: Gastrointestinal tract: Dilated small bowel loops in a probable left lower quadrant abdominal wall hernia. Stomach is dilated. Moderate fecal material in the rectum. Colon is otherwise not significantly dilated. Organs: Staghorn calculus in the right kidney. Bones/joints: Left hip arthroplasty in expected location. Severe osteoarthritis with remodeling of the right hip joint. Advanced degenerative changes in the spine. IMPRESSION: 1. Dilated small bowel, likely in and abdominal wall hernia concerning for bowel obstruction. 2. Staghorn calculus in the right kidney. Electronically signed by: Berny Cedeño On 07/18/2020 03:28:04 AM
[2020-07-18] MEDS: NS 1,000 ML IV SCH ×3 (05:05→21:03)
[2020-07-18 05:51] LABS: BASO % 0.2 % (0.0-1.0); EOS % 0.1 % (0.0-3.0); HEMATOCRIT 37.5 % (42.0-52.0); LYMPH # 0.9 10^3/uL (1.5-5.0); LYMPH % 6.8 % (24.0-44.0); MEAN CORPUSCULAR HEMOGLOBIN 28.9 pg (27.0-33.0); MEAN CORPUSCULAR VOLUME 90.4 fl (80.0-96.0); MONO # 0.8 10^3/uL (0.0-0.8); MONO % 6.2 % (2.0-8.0); NEUTROPHILS # 11.1 10^3/uL (1.5-8.5); NEUTROPHILS % 85.6 % (36.0-66.0); PLATELET COUNT, AUTOMATED 155 10^3/uL (150-450); RED BLOOD COUNT 4.15 10^6/uL (4.30-6.10)
[2020-07-18 06:00] VITALS: BP 111/63
[2020-07-18] MEDS: LevoFLOXacin IV 500 MG in IV 1 EA IV SCH (06:12)
[2020-07-18 06:22] LABS: ALBUMIN 3.3 GM/DL (3.2-5.2); ALT/SGPT 77 U/L (12-78); BILIRUBIN,TOTAL 1.1 MG/DL (0.2-1.0); BLOOD UREA NITROGEN 20 MG/DL (7-18); CALCIUM LEVEL 8.3 MG/DL (8.8-10.2); CARBON DIOXIDE LEVEL 31 MEQ/L (21-32); CHLORIDE LEVEL 93 MEQ/L (98-107); CREATININE FOR GFR 1.12 MG/DL (0.70-1.30); GLOMERULAR FILTRATION RATE > 60.0 (>49); GLUCOSE, FASTING 118 MG/DL (70-100); POTASSIUM SERUM 3.9 MEQ/L (3.5-5.1); SODIUM LEVEL 130 MEQ/L (136-145); TOTAL PROTEIN 8.7 GM/DL (6.4-8.2)
--- NOTE | 2020-07-18 07:18 | REPVR ---
PROCEDURE INFORMATION: Exam: XR Chest Exam date and time: 07/18/2020 6:52 AM Age: 65 years old Clinical indication: Device placement; Ng tube; Additional info: Ng placement TECHNIQUE: Imaging protocol: XR of the chest Views: 1 view. COMPARISON: [place] PORTABLE CHEST X-RAY 06/27/2020 8:59 AM FINDINGS: Tubes, catheters and devices: Feeding tube seen with its tip in the stomach. Lungs: There is low lung volume with prominent interstitial markings. Pleural spaces: Unremarkable. No pleural effusion. No pneumothorax. Heart/Mediastinum: Unremarkable. No cardiomegaly. Bones/joints: Unremarkable. IMPRESSION: 1. Feeding tube seen with its tip in the stomach. 2. No focal consolidation. Low lung volume with nonspecific prominent interstitial marking could be due to prominent bronchovascular markings due to hypoventilation however interstitial lung process cannot be excluded. Overall there is improved aeration of the lung fernandes as compared to the prior exam. Electronically signed by: Jaun Sue On 07/18/2020 07:18:40 AM
[2020-07-18] MEDS: DOCUSATE SODIUM 100MG CAPSULE PO SCH ×2 (07:55→21:00)
[2020-07-18] MEDS: METOPROLOL SUCC *XL* 25MG TAB (TopROL *XL*) PO SCH ×2 (07:56→21:00)
--- NOTE | 2020-07-18 08:54 | REP ---
INDICATION: Reymundo cancelled my last one. Abdominal pain and vomiting. COMPARISON: Comparison radiographs are from 2:20 a.m. on this date.. TECHNIQUE: Five views of the supine abdomen include 2 horizontal beam cross-table lateral views. FINDINGS: Nasogastric tube is seen passed into the gastric fundus. Gastric distension is improved but not resolved. There are dilated loops of small bowel persisting in the left mid abdomen similar to the earlier film. There are clips in the left lower quadrant. Lateral cross-table views show no visible free air. There is bowel protruding through a ventral hernia. These loops are dilated as well. A staghorn renal calculus is noted on the right. Left hip arthroplasty is again noted in place and there is severe osteoarthritis of the right hip. IMPRESSION: Large ventral hernia. Small-bowel obstruction pattern persists. NG tube in the gastric fundus. Staghorn renal calculus on the right. No radiographic evidence of free intraperitoneal air. <Electronically signed by Perez Marie > 07/18/20 [id number]
--- NOTE | 2020-07-18 09:10 | ECGEPIP ---
[facility] Test Date: 2020-07-18 Pat Name: JULIANO JENKINS Department: Room: [place] [address] Gender: Male Senior Medical Director: ervin : 1955 Requested By: OUSMANE BAIG D.O. Order Number: [id number] Reading MD: Mesha Stein Measurements Intervals Sims Rate: 62 P: 54 CA: 184 QRS: 9 QRSD: 100 T: -41 QT: 430 QTc: 436 Interpretive Statements Normal sinus rhythm FIRST DEGREE BLOCK Low voltage QRS PRECORDIAL LEADS Nonspecific ST and T wave abnormality INFERIOR LEADS NEW // IMPROVED A ANTERIORLATERL CHANGES PREVIOUS WITH ATRIAL FIBRILLATION RATE, V RATE 06/27/20 Electronically Signed on 07-18-2020 9:09:45 EST by Mesha Stein
--- NOTE | 2020-07-18 09:26 | CR ---
CONSULTATION DATE: 07/17/2020 REASON FOR CONSULTATION: Abdominal pain. HISTORY OF PRESENT ILLNESS: The patient is a 65-year-old male who presented to the emergency room with a 3-day history of rectal pain and constipation. He has a known large ventral hernia that was repaired two years ago and had recurred over a year ago, and he has been waiting to have surgery with Dr. Judd. He has not had any problems with abdominal pains or bowel movements for the past year, so he has been holding off on surgery; however, recently he started to have more intermittent constipation and he usually takes Milk of Magnesia as needed; however, for the past couple of days he has had increased pain and constipation so he came in for evaluation. In the ER, he did have a CT scan showing a large ventral hernia, no signs of any obstruction. He did have a large amount of stool throughout the entire colon as well as the findings of possible kidney infection. He was admitted for that. Overnight in the hospital, he has developed increasing abdominal pain at his hernia site. His hernia has gotten larger in size. He has also had at least three episodes of vomiting. NG tube has since been placed. He did have a small bowel movement this evening as well. No other new findings. PAST MEDICAL HISTORY: 1. Atrial fibrillation, on Xarelto. 2. Depression. 3. Obesity. 4. Edema. 5. Peripheral vascular disease. 6. Chronic anemia. 7. Insomnia. 8. Staghorn calculus in the right kidney with gross hematuria; chronic indwelling catheter. PAST SURGICAL HISTORY: 1. Left hip repair. 2. Hernia repair. 3. Cholecystectomy. 4. Appendectomy. SOCIAL HISTORY: Denies drug, alcohol, tobacco abuse. FAMILY HISTORY: Noncontributory. ALLERGIES: None. HOME MEDICATIONS: Please see medicine reconciliation. REVIEW OF SYSTEMS: Pertinent positives and negatives stated in history of present illness. PHYSICAL EXAMINATION: GENERAL: Alert and oriented times 3, in no acute distress. VITALS: Temperature 97.5, pulse 60, respirations 20, blood pressure 111/63, pulse ox 97% on room air. HEENT: Pupils equally round, reactive to light and accommodation. HEART: S1, S2. Regular rate and rhythm. LUNGS: Clear to auscultation bilaterally. ABDOMEN: Soft. Tender to palpation in the midline. There is a large ventral defect with loops of small bowel easily visible through the skin. With palpation around the perimeter of this defect, I am able to decompress it at least 50% but cannot reduce it completely but it is soft and at least partially reducible. EXTREMITIES: Bilateral lower extremity pitting edema. LABORATORY DATA: White count 13, hemoglobin 12, platelets 155. Potassium 3.9. Creatinine 1.12. Lactic acid 2.2. IMAGING: CT abdomen and pelvis again showed moderate stool burden in the rectum and sigmoid colon, large ventral abdominal wall hernia containing multiple loops of bowel without evidence of obstruction. Large staghorn calculus in the right renal pelvis measuring 4 cm. Also has adjacent fat stranding around the right renal pelvis and proximal ureter suggesting possible acute pyelitis. ASSESSMENT AND PLAN: Patient is a 65-year-old male currently being treated for a kidney infection due to a staghorn calculus; also showing signs of incarcerated ventral hernia. The hernia, on exam, is soft. His nausea, vomiting and small bowel distention may be secondary to this hernia; also could be secondary to partial ileus due to his current infection. Lactic acid is slightly elevated at this time but since then the NG tube has been placed and i have also reduced part of his hernia. I recommend repeat labs and x-ray after a few hours. If there is improvement, then we will continue with medical management with the NG tube in for now. Patient requests that Dr. Judd be his surgeon if this does not need to be done on an emergency basis. We will continue to monitor his labs and his x-rays. If he stays stable overnight, then we will talk with Dr. Judd about this in the morning and he can see him in followup.
--- NOTE | 2020-07-18 09:48 | IPNPDOC ---
Text Note Date of Service The patient was seen on 07/18/20. NOTE Subjective: Overnight, patient complained of increased abdominal pain and had 5 episodes of vomiting. X-ray of abd was done and showed dilated small bowel, likely in the abdominal wall hernia concerning for bowel obstruction. Surgery was consulted and pt had NG tube placed and was placed NPO. Patient denies any nausea or vomiting this morning. Pt reports that he has felt better since placement of NG tube. Admits to "gas pain" and states that he has been able to pass gas but has not had a BM yet. Pt denies abd pain. Nursing has reported that he has had a small BM this morning. Objective: VITALS: See below. GENERAL: Patient is laying in bed and appears to be in some discomfort. No acute distress. HEENT: NC/AT. EOMI. Conjunctiva and lids normal. CARDIOVASCULAR: Regular rate and rhythm. Normal S1 and S2. No murmurs, rubs, or gallops appreciated. PULMONARY: Lungs clear to auscultation bilaterally. Good air movement. No whe ezes, rales or rhonchi appreciated. ABDOMEN: Obese. Soft abdomen. Mild tenderness to palpation over ventral hernia. Large abdominal hernia to L side of umbilicus. Hypoactive bowel sounds. No flank tenderness. EXTREMITIES: 1+ pitting edema to BLE / Chronic venous stasis changes SKIN: Venous stasis skin hyperpigmentation to BLE. Assessment/Plan: Patient is a 65 year old male with past medical history of paroxysmal atrial fibrillation, PVD, BLE edema, chronic anemia, staghorn calculus in R renal pelvis, chronic mccarthy, depression, insomnia, and obesity who presented to the ED due to three day hx of rectal pain and constipation. He was found to have a UTI on UA with pyelitis seen on CT imaging. Patient was admitted for management of constipation and complicated pyelonephritis. #Abdominal pain - possibly 2/2 ileus, possibly 2/2 Small bowel obstruction - Abd xray at 2 am on 07/18/20 showed dilated small bowel, likely in an abdominal wall hernia concerning for bowel obstruction. - Abd xray at 9 am on 07/18/20 showed large ventral hernia. Small-bowel obstruction pattern persists. NG tube in the gastric fundus. Staghorn renal calculus on the right. No radiographic evidence of free intraperitoneal air. - Lactic acid was initially elevated at 2.2 but has decreased to 1.7 in repeat. - Surgery has been consulted and does not believe surgery will be required. - Pt has been placed NPO and NG tube is in place. Plan to keep NG tube in place until tomorrow. #Rectal pain 2/2 constipation - Fleet enema daily PRN. - Colace to help prevent constipation - held due to NPO status. - Milk of magnesia has been discontinued due to hypermagnesemia. - Will add lactulose to induce 1-2 BM daily - held due to NPO status. #Complicated pyelonephritis with staghorn calculus in R renal pelvis - UA with WBCs and leukocyte esterase. Urine culture pending. - Abx switched to Levofloxacin 500 mg IV from IV ceftriaxone due to prior cultures having grown Enterobacter cloacae which is resistant to cephalosporins. - Patient has chronic gross hematuria 2/2 renal stone and anticoagulant use. - Staghorn calculus is chronic and patient follows urology outpatient. - Dr. Del Castillo, urology, has seen patient and plans on continuing Levaquin for pyelonephritis treatment pending urine cultures. He will discuss CT findings with team and make arrangements for PCNL. #Paroxysmal atrial fibrillation - Will continue home metoprolol. - Xarelto on hold; Will resume within 24 hours #Chronic anemia - H/H at baseline of 11-12. - Will continue to monitor CBC daily. #Lower extremity edema - Currently appears chronic - Will continue home spironolactone and torsemide. - 2 g sodium diet. - Will monitor BMP daily. #Depression with insomnia - Continue home Ramelteon. # Morbid obesity - Complicating care, BMI 52.5. DVT Prophylaxis: Teds and SCDs for possible procedure. Disposition: Dr. Del Castillo, urology, has seen patient and plans on continuing Levaquin for pyelonephritis treatment pending urine cultures. He will discuss CT findings with team and make arrangements for PCNL. Pt will be kept NPO with NG tube in place for SBO. Will continue to monitor. VS,Fishbone, I+O VS, Fishbone, I+O Laboratory Tests 07/18/20 05:37 Vital Signs Date Time Temp Pulse Resp B/P (MAP) Pulse Ox O2 Delivery O2 Flow Rate FiO2 07/18/20 06:00 97.5 60 20 111/63 (79) 97 Room Air I&O- Last 24 Hours up to 6 AM 07/18/20 05:59 Intake Total 1475 ml Output Total 1600 ml Balance -125 ml GME ATTESTATION GME ATTESTATION My faculty preceptor for this patient encounter was physically present during the encounter and was fully available. All aspects of the patient interview, examination, medical decision making process, and medical care plan development were reviewed and approved by the faculty preceptor. The faculty preceptor is aware and concurs with the plan as stated in the body of this note and will attest to such by his/her cosignature. ATTENDING NOTE I, Philip Sullivan, have independently examined this patient and performed my own physical exam, as well as reviewed the documentation and edited where necessary. I have discussed in detail with the resident / student the findings and plan of treatment as documented by the resident / student and edited their note. I agree with their findings and treatment plan and have edited their documentation. I will continue to follow the patient during this hospital stay. Shelley CUELLAR OMS-3 Jul 18, 2020 09:48 PHILIP SULLIVAN MD Jul 18, 2020 10:19
[2020-07-18 15:37] VITALS: BP 109/62
[2020-07-18] MEDS ORDERED: diphenhydrAMINE 50MG/ML VIAL (J1200) IV ONE (17:20)
[2020-07-18] MEDS: RAMELTEON 8 MG TAB (ROZEREM) PO SCH (21:00)
[2020-07-19] MEDS: NS 1,000 ML IV SCH ×3 (05:07→19:37)
[2020-07-19] MEDS: LevoFLOXacin IV 500 MG in IV 1 EA IV SCH (05:07)
[2020-07-19 06:00] VITALS: BP 109/63
[2020-07-19 07:16] LABS: HEMATOCRIT 35.6 % (42.0-52.0); HEMOGLOBIN 11.3 g/dl (13.5-17.5); MEAN CORPUSCULAR HEMOGLOBIN 29.5 pg (27.0-33.0); MEAN CORPUSCULAR HGB CONC 31.7 g/dl (32.0-36.5); PLATELET COUNT, AUTOMATED 118 10^3/uL (150-450); RED BLOOD COUNT 3.83 10^6/uL (4.30-6.10); WHITE BLOOD COUNT 9.3 10^3/uL (4.0-10.0)
[2020-07-19 08:03] LABS: ALBUMIN 2.7 GM/DL (3.2-5.2); ALT/SGPT 75 U/L (12-78); BILIRUBIN,TOTAL 0.9 MG/DL (0.2-1.0); BLOOD UREA NITROGEN 13 MG/DL (7-18); CARBON DIOXIDE LEVEL 34 MEQ/L (21-32); CHLORIDE LEVEL 100 MEQ/L (98-107); CREATININE FOR GFR 0.78 MG/DL (0.70-1.30); GLOMERULAR FILTRATION RATE > 60.0 (>49); GLUCOSE, FASTING 86 MG/DL (70-100); MAGNESIUM LEVEL 2.7 MG/DL (1.8-2.4); POTASSIUM SERUM 3.7 MEQ/L (3.5-5.1); SODIUM LEVEL 138 MEQ/L (136-145); TOTAL PROTEIN 7.2 GM/DL (6.4-8.2)
[2020-07-19 09:00] VITALS: BP 111/64
[2020-07-19] MEDS: DOCUSATE SODIUM 100MG CAPSULE PO SCH ×2 (09:00→19:37)
[2020-07-19] MEDS: METOPROLOL SUCC *XL* 25MG TAB (TopROL *XL*) PO SCH ×2 (09:00→19:37)
[2020-07-19] MEDS ORDERED: diphenhydrAMINE 50MG/ML VIAL (J1200) IV ONE (10:00)
[2020-07-19] MEDS ORDERED: MAGNESIUM CITRATE 300 ML BTL PO ONE (10:25)
--- NOTE | 2020-07-19 11:19 | IPNPDOC ---
Date Seen The patient was seen on 07/19/20. Progress Note Addendum: Patient reevaluated later in day. Patient was noted to develop worsening nausea, vomiting, and abdominal cramping. NG tube was placed back to LIS and patient was made NPO again. Abdominal X-ray demonstrated SBO. General Surgery was contacted. No urgent need for hernia repair. Continue with medical management for now. Will start patient on Dulcolax supp today. If he continues to have stool in rectum then will likely need manual disimpaction. Have given 30mg toradol for pain. Will try to avoid opioids which would further worsen ileus. SUBJECTIVE: Patient was seen and examined this morning. There have been no adverse events reported overnight. He reports less pain. Denies any nausea. Patient states that he is passing gas. NG tube is in place with 600cc out OBJECTIVE PHYSICAL EXAMINATION: VITAL SIGNS: Please see below. GENERAL: Awake, alert, and oriented. Does not appear to be in any acute distress. Lying comfortably in bed HEENT: Atraumatic, normocephalic. Eyes are nonicteric. Trachea is midline. Mucous membranes are pink and moist CARDIOVASCULAR: Normal S1, S2. Regular rate and rhythm. No clicks, rubs, or murmurs RESPIRATORY: Clear breath sounds bilaterally. Decreased in the bases. No wheezes, rhonchi, or rales. ABDOMINAL: Morbidly obese. Soft, nondistended. Large ventral hernia. Mild tenderness. No rebound tenderness or guarding. Normoactive bowel sounds EXTREMITIES: Bilateral 3+ pitting edema with venous stasis changes. Onycho mycosis bilaterally. Full and equal pulses bilaterally NEUROLOGICAL: No focal neurological deficits PSYCHOLOGICAL: Mood and affect appear appropriate LABORATORY DATA, IMAGING STUDIES, MICROBIOLOGY: Please see below. DVT prophylaxis ordered?: ASSESSMENT AND PLAN: Patient is a 65 year old male with a past medical history significant for paroxysmal atrial fibrillation, PVD, BLE edema, chronic anemia, Staghorn calculus in R renal pelvis, chronic folwy catheter, depression, and morbid obesity who presented to the [facility] ER originally with complaint of rectal pain and constipation. Patient was admitted for UTI and pyelonephritis on CT. He was started on antibiotics. During hospitalization the patient developed a mechanical SBO. NG tube was placed and patient was evaluated by surgery. He is continued on medical management PROBLEMS: 1. Mechanical Small Bowel Obstruction/Ileus -Patient has a large ventral hernia which is likely the etiology of his SBO. Currently does not appear incarcerated. Patient has been evaluated by General surgery. NG tube has been placed. He has had 600cc output since last night. Color of gastric drainage is slightly green. He is passing gas and denies any s ignificant abdominal pain -General Surgery is following recommendations and assistance is appreciated. -Will clamp NG tube today. Give one time dose of magnesium citrate and start a clear liquids diet. If the patient is able to tolerate PO then NG tube can be removed later this evening 2. Ventral Hernia -Patient has a large ventral hernia which is likely the cause of his SBO. He will need surgical correction in the future. Ideally this can be done on an outpatient basis. Patient has requested that he see Dr. Judd for his surgery. 3. Pyelonephritis with Staghorn Calculus in the R renal Pelvis -Patient currently on Levaquin. Patient has been evaluated by Urology. Recommendations and assistance is appreciated. He will need a percutaneous nephrolithotomy at some point. This will likely be done in the outpatient setting. -Continue antibiotics. Currently awaiting culture date 4. Paroxysmal Atrial Fibrillation -Patient has remained rate controlled. His metoprolol is on hold currently due to his NPO status. NG tube is clamped. If patient is able to tolerate PO then will resume Metoprolol -Anticoagulation is currently on hold due to possible surgery. If patients SBO resolves then will start Xarelto again 5. Lower Extremity Edema -Patient has chronic lower extremity edema. He is on Spironolactone and torsemide outpatient. He does not currently have a PCP. 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 -He will need evaluation outpatient for his leg swelling 6. Positive Blood Culture x1 7. Morbid Obesity -Complicated care 8. DVT prophylaxis -Will start Heparin until Xarelto is resumed DISPOSITION: If tolerating PO NG tube planed to be removed this evening. Potent ial discharge in 48 hours VS, I&O, 24H, Fishbone Vital Signs/I&O Vital Signs Date Time Temp Pulse Resp B/P (MAP) Pulse Ox O2 Delivery O2 Flow Rate FiO2 07/19/20 09:00 97.9 20 111/64 (80) 94 Room Air 07/19/20 06:00 66 I&O- Last 24 Hours up to 6 AM 07/19/20 06:00 Intake Total 3089 ml Output Total 2950 ml Balance 139 ml Laboratory Data 24H LABS Laboratory Tests 2 07/18/20 11:48: Bedside Glucose (Misc Panel) 96 07/19/20 00:18: Bedside Glucose (Misc Panel) 104 07/19/20 05:46: Bedside Glucose (Misc Panel) 75L 07/19/20 07:03: Anion Gap 4L, Glomerular Filtration Rate > 60.0, Calcium Level 8.0L, Magnesium Level 2.7H, Total Bilirubin 0.9, Aspartate Amino Transf (AST/SGOT) 67H, Alanine Aminotransferase (ALT/SGPT) 75, Alkaline Phosphatase 180H, Total Protein 7.2, Albumin 2.7L, Albumin/Globulin Ratio 0.6 07/19/20 07:04: Nucleated Red Blood Cells % (auto) 0.0 CBC/BMP Laboratory Tests 07/19/20 07:03 07/19/20 07:04 Microbiology Microbiology 07/16/20 Urine Culture - Preliminary, Resulted Yeast Like Organism 07/16/20 Blood Culture - Preliminary, Resulted No Growth after 48 hours. All Specime... 07/16/20 Blood Culture - Preliminary, Resulted GME ATTESTATION GME ATTESTATION My faculty preceptor for this patient encounter was physically present during the encounter and was fully available. All aspects of the patient interview, examination, medical decision making process, and medical care plan development were reviewed and approved by the faculty preceptor. The faculty preceptor is aware and concurs with the plan as stated in the body of this note and will attest to such by his/her cosignature. ATTENDING NOTE I, Philip Gonzales, have independently examined this patient and performed my own physical exam, as well as reviewed the documentation and edited where necessary. I have discussed in detail with the resident / student the findings and plan of treatment as documented by the resident / student and edited their note. I agree with their findings and treatment plan and have edited their documentation. I will continue to follow the patient during this hospital stay. ANGEL RODAS DO Jul 19, 2020 11:19 PHILIP GONZALES MD Jul 19, 2020 11:28
[2020-07-19 12:00] VITALS: BP 115/66
[2020-07-19] MEDS: HEPARIN SOD (PORCINE) 5000UNITS/ML 1ML VIAL/SYRINGE SQ SCH ×2 (12:03→17:32)
--- NOTE | 2020-07-19 14:36 | REP ---
INDICATION: SBO. COMPARISON: None. TECHNIQUE: Three supine views of the abdomen and pelvis. FINDINGS: Dilated loops of small bowel are identified and small-bowel obstruction cannot be excluded. Skeletal structures demonstrate degenerative changes and left hip replacement. IMPRESSION: Dilated small bowel suggesting small bowel obstruction. <Electronically signed by Drew Rosario > 07/19/20 [id number]
[2020-07-19] MEDS ORDERED: KETOROLAC 30 MG/ML 1ML VIAL IV ONE (15:00)
[2020-07-19 15:11] VITALS: BP 124/70
[2020-07-19] MEDS: BISACODYL 10 MG SUPP PR SCH (17:32)
[2020-07-19] MEDS: RAMELTEON 8 MG TAB (ROZEREM) PO SCH (19:36)
[2020-07-19] MEDS ORDERED: BISACODYL 10 MG SUPP PR SCH (21:00)
[2020-07-19] MEDS: diphenhydrAMINE 50MG/ML VIAL (J1200) IV PRN (21:43)
[2020-07-19 22:00] VITALS: BP 96/65
[2020-07-20] MEDS ORDERED: diphenhydrAMINE 50MG/ML VIAL (J1200) IV ONE (00:50)
[2020-07-20] MEDS: HEPARIN SOD (PORCINE) 5000UNITS/ML 1ML VIAL/SYRINGE SQ SCH ×3 (01:14→17:00)
[2020-07-20] MEDS: NS 1,000 ML IV SCH ×3 (05:38→22:03)
[2020-07-20] MEDS: LevoFLOXacin IV 500 MG in IV 1 EA IV SCH (05:38)
[2020-07-20 06:00] VITALS: BP 95/60
[2020-07-20 06:24] LABS: HEMATOCRIT 35.7 % (42.0-52.0); HEMOGLOBIN 11.2 g/dl (13.5-17.5); MEAN CORPUSCULAR HEMOGLOBIN 29.6 pg (27.0-33.0); MEAN CORPUSCULAR HGB CONC 31.4 g/dl (32.0-36.5); MEAN CORPUSCULAR VOLUME 94.4 fl (80.0-96.0); PLATELET COUNT, AUTOMATED 110 10^3/uL (150-450); RED BLOOD COUNT 3.78 10^6/uL (4.30-6.10); WHITE BLOOD COUNT 8.2 10^3/uL (4.0-10.0)
[2020-07-20 06:43] LABS: BLOOD UREA NITROGEN 17 MG/DL (7-18); CALCIUM LEVEL 8.1 MG/DL (8.8-10.2); CARBON DIOXIDE LEVEL 33 MEQ/L (21-32); CHLORIDE LEVEL 100 MEQ/L (98-107); CREATININE FOR GFR 0.86 MG/DL (0.70-1.30); GLOMERULAR FILTRATION RATE > 60.0 (>49); GLUCOSE, FASTING 74 MG/DL (70-100); POTASSIUM SERUM 3.6 MEQ/L (3.5-5.1); SODIUM LEVEL 139 MEQ/L (136-145)
--- NOTE | 2020-07-20 08:27 | IPNPDOC ---
Text Note Date of Service The patient was seen on 07/20/20. NOTE Subjective: No acute events overnight. Patient states that he had difficulty sleeping due to depression but states that this is baseline for him. Denies any nausea or vomiting. Admits to abdominal pressure that pt attributes as "gas pain". He has not had a BM but reports he is able to pass flatus. Admits to dry mouth due to NPO status. No headache, SOB, or chest pain reported. Objective: VITALS: See below. GENERAL: Patient is laying in bed in no acute distress. HEENT: NC/AT. EOMI. Conjunctiva and lids normal. CARDIOVASCULAR: Regular rate and rhythm. Normal S1 and S2. No murmurs, rubs, or gallops appreciated. PULMONARY: Lungs clear to auscultation bilaterally. Good air movement. No wheezes, rales or rhonchi appreciated. ABDOMEN: Obese. Soft abdomen. Large abdominal hernia to L side of umbilicus. Tenderness to palpation over ventral hernia. Bowel sounds present in all four quadrants, hyperactive. No flank tenderness. EXTREMITIES: 1+ pitting edema to BLE / Chronic venous stasis changes SKIN: Venous stasis skin hyperpigmentation to BLE. Assessment/Plan: Patient is a 65 year old male with past medical history of paroxysmal atrial fibrillation, PVD, BLE edema, chronic anemia, staghorn calculus in R renal pelvis, chronic mccarthy, depression, insomnia, and obesity who presented to the ED due to three day hx of rectal pain and constipation. He was found to have a UTI on UA with pyelitis seen on CT imaging. Patient was admitted for management of constipation and complicated pyelonephritis. #Abdominal pain - possibly 2/2 ileus, possibly 2/2 Small bowel obstruction - Abd xray at 2 am on 07/18/20 showed dilated small bowel, likely in an abdominal wall hernia concerning for bowel obstruction. - Abd xray at 9 am on 07/18/20 showed large ventral hernia. Small-bowel obstruction pattern persists. NG tube in the gastric fundus. Staghorn renal calculus on the right. No radiographic evidence of free intraperitoneal air. - Abd xray on 07/19/20 showed dilated small bowel suggesting small bowel obstruction. - Lactic acid was elevated at 2.1 yesterday afternoon but 4hr follow up was 1.2. - Surgery has been consulted and does not believe surgery will be required. - Pt NG tube was clamped yesterday but pt developed increasing abd pain, nausea, and vomiting. Surgery has been consulted and does not believe he requires surgery. Will continue with NG tube and NPO status. He has had 550 cc output with color of gastric drainage being green. #Ventral hernia - Patient has a large ventral hernia that is likely the cause of his SBO - Will need surgical correction in the future on an outpatient basis. Possible ventral hernia repair inpatient by Dr. Judd if pt still in hospital on 07/23/20. #Rectal pain 2/2 constipation - Fleet enema daily PRN. - Colace to help prevent constipation - held due to NPO status. - Milk of magnesia has been discontinued due to hypermagnesemia. - Will add lactulose to induce 1-2 BM daily - held due to NPO status. #Complicated pyelonephritis with staghorn calculus in R renal pelvis - UA with WBCs and leukocyte esterase. Urine culture pending. - Abx switched to Levofloxacin 500 mg IV from IV ceftriaxone due to prior cultures having grown Enterobacter cloacae which is resistant to cephalosporins. - Patient has chronic gross hematuria 2/2 renal stone and anticoagulant use. - Staghorn calculus is chronic and patient follows urology outpatient. - Dr. Del Castillo, urology, has seen patient and plans on continuing Levaquin for pyelonephritis treatment pending urine cultures. He will discuss CT findings with team and make arrangements for PCNL. #Paroxysmal atrial fibrillation - Will continue home metoprolol. - Xarelto on hold; Will start Heparin 5,000 units SQ Q8H. #Chronic anemia - H/H at baseline of 11-12. - Will continue to monitor CBC daily. #Lower extremity edema - Currently appears chronic - Will continue home spironolactone and torsemide. - 2 g sodium diet. - Will monitor BMP daily. #Depression with insomnia - Continue home Ramelteon. - Benadryl PRN for sleep. # Morbid obesity - Complicating care, BMI 52.5. DVT Prophylaxis: Heparin 5,000 units SQ Q8H. Disposition: Patient did not tolerate clamping of NG tube and PO yesterday. Abd X-ray showed SBO. Will continue to keep pt on NG tube and NPO status. Discharge pending clinical improvement. VS,Fishbone, I+O VS, Fishbone, I+O Laboratory Tests 07/20/20 05:44 Vital Signs Date Time Temp Pulse Resp B/P (MAP) Pulse Ox O2 Delivery O2 Flow Rate FiO2 07/20/20 06:00 96.8 69 20 95/60 (72) 94 Room Air I&O- Last 24 Hours up to 6 AM 07/20/20 06:00 Intake Total 1329 ml Output Total 2625 ml Balance -1296 ml GME ATTESTATION GME ATTESTATION My faculty preceptor for this patient encounter was physically present during the encounter and was fully available. All aspects of the patient interview, examination, medical decision making process, and medical care plan development were reviewed and approved by the faculty preceptor. The faculty preceptor is aware and concurs with the plan as stated in the body of this note and will attest to such by his/her cosignature. ATTENDING NOTE I, Philip Sullivan, have independently examined this patient and performed my own physical exam, as well as reviewed the documentation and edited where necessary. I have discussed in detail with the resident / student the findings and plan of treatment as documented by the resident / student and edited their note. I agree with their findings and treatment plan and have edited their documentation. I will continue to follow the patient during this hospital stay. Shelley CUELLAR OMS-3 Jul 20, 2020 08:27 PHILIP SULLIVAN MD Jul 20, 2020 13:37
[2020-07-20] MEDS: DOCUSATE SODIUM 100MG CAPSULE PO SCH ×2 (09:04→19:47)
[2020-07-20] MEDS: BISACODYL 10 MG SUPP PR SCH ×2 (09:04→19:47)
[2020-07-20] MEDS: METOPROLOL SUCC *XL* 25MG TAB (TopROL *XL*) PO SCH ×2 (09:07→19:47)
[2020-07-20] MEDS ORDERED: GLUCOSE 4GM CHEW TABLET PO PRN (11:40)
[2020-07-20] MEDS ORDERED: DEXTROSE 50% 50 ML SYRINGE IV PRN (11:40)
[2020-07-20] MEDS ORDERED: GLUCAGON INJ 1MG VIAL SC PRN (11:40)
[2020-07-20] MEDS ORDERED: DEXTROSE 50% 50 ML SYRINGE As Ordered ONE (11:40)
[2020-07-20 14:00] VITALS: BP 119/71
[2020-07-20] MEDS: RAMELTEON 8 MG TAB (ROZEREM) PO SCH (19:47)
[2020-07-20] MEDS: diphenhydrAMINE 50MG/ML VIAL (J1200) IV PRN (19:48)
[2020-07-20 22:00] VITALS: BP 112/61
[2020-07-20] MEDS: hydrOXYzine 25 MG TAB PO PRN (22:03)
[2020-07-21] MEDS: D5W/0.45% SODIUM CHLORIDE 1,000 ML IV SCH ×2 (01:06→10:01)
[2020-07-21] MEDS: HEPARIN SOD (PORCINE) 5000UNITS/ML 1ML VIAL/SYRINGE SQ SCH ×3 (01:06→17:16)
[2020-07-21] MEDS: LevoFLOXacin IV 500 MG in IV 1 EA IV SCH (05:09)
[2020-07-21 06:00] VITALS: BP 112/64
[2020-07-21 06:46] LABS: HEMATOCRIT 35.9 % (42.0-52.0); HEMOGLOBIN 11.1 g/dl (13.5-17.5); MEAN CORPUSCULAR HEMOGLOBIN 29.6 pg (27.0-33.0); MEAN CORPUSCULAR HGB CONC 30.9 g/dl (32.0-36.5); MEAN CORPUSCULAR VOLUME 95.7 fl (80.0-96.0); PLATELET COUNT, AUTOMATED 109 10^3/uL (150-450); RED BLOOD COUNT 3.75 10^6/uL (4.30-6.10); WHITE BLOOD COUNT 8.7 10^3/uL (4.0-10.0)
[2020-07-21 07:04] LABS: BLOOD UREA NITROGEN 11 MG/DL (7-18); CALCIUM LEVEL 8.2 MG/DL (8.8-10.2); CARBON DIOXIDE LEVEL 32 MEQ/L (21-32); CHLORIDE LEVEL 102 MEQ/L (98-107); CREATININE FOR GFR 0.73 MG/DL (0.70-1.30); GLOMERULAR FILTRATION RATE > 60.0 (>49); GLUCOSE, FASTING 86 MG/DL (70-100); POTASSIUM SERUM 3.2 MEQ/L (3.5-5.1); SODIUM LEVEL 137 MEQ/L (136-145)
[2020-07-21] MEDS ORDERED: CHLORASEPTIC SPRAY MT PRN (08:20)
[2020-07-21] MEDS: METOPROLOL SUCC *XL* 25MG TAB (TopROL *XL*) PO SCH ×2 (09:00→21:00)
--- NOTE | 2020-07-21 09:54 | REP ---
INDICATION: sbo COMPARISON: None. TECHNIQUE: Supine view of the chest with supine and cross-table lateral views of the abdomen and pelvis. FINDINGS: Frontal view of the chest demonstrates nasogastric tube terminating in the distal esophagus and requiring advancement. Supine and cross-table lateral views of the abdomen and pelvis demonstrate relatively nonspecific bowel gas pattern without evidence for obstruction or perforation. No organomegaly. Staghorn calculus fills the right renal pelvis. Skeletal structures demonstrate degenerative changes. IMPRESSION: 1. Nasogastric tube terminates in the distal esophagus and requires advancement. 2. Nonspecific bowel gas pattern. <Electronically signed by Drew Rosario > 07/21/20 [id number]
[2020-07-21] MEDS: hydrOXYzine 25 MG TAB PO PRN ×2 (10:02→17:17)
[2020-07-21] MEDS: DOCUSATE SODIUM 100MG CAPSULE PO SCH ×2 (10:02→20:59)
[2020-07-21] MEDS: BISACODYL 10 MG SUPP PR SCH ×2 (10:03→21:03)
[2020-07-21 14:00] VITALS: BP 108/61
[2020-07-21] MEDS ORDERED: BISACODYL 10 MG SUPP PR ONE (14:00)
--- NOTE | 2020-07-21 14:34 | IPNPDOC ---
Date Seen The patient was seen on 07/21/20. Progress Note SUBJECTIVE: Patient was seen and examined this morning. He does admit to some nausea at times but denies any abdominal pain currently. NG tube is currently at LIS with more clear drainage this morning. He has not had a full BM yet. Otherwise patient has no current complaints OBJECTIVE PHYSICAL EXAMINATION: VITAL SIGNS: Please see below. GENERAL: Awake, alert, and oriented. Appears in no acute distress. Lying in bed comfortably. HEENT: Atraumatic, normocephalic. Eyes are nonicteric. Trachea is midline. Mucous membranes are pink and moist. Nasograstic tube in place with ~200cc clear appearing gastric content CARDIOVASCULAR: Normal S1, S2. Regular rate and rhythm. No clicks, rubs, or murmurs RESPIRATORY: Clear breath sounds bilaterally. No wheezes, rhonchi, or rales ABDOMINAL: Soft, nondistended. Large ventral hernia. It is mostly reducible at bedside. There is some tenderness around his hernia. There are normoactive bowel sounds. EXTREMITIES: 2-3 + pitting edema. Chronic venous stasis changes noted. DP pulses by doppler. NEUROLOGICAL: No focal neurological deficits PSYCHOLOGICAL: Mood and affect appear appropriate LABORATORY DATA, IMAGING STUDIES, MICROBIOLOGY: Please see below. DVT prophylaxis ordered?: Heparin ASSESSMENT AND PLAN: Patient is a 65 year old male with a past medical history significant for paroxysmal atrial fibrillation, PVD, BLE edema, chronic anemia, Staghorn calculus in R renal pelvis, chronic Crowell catheter, depression, and morbid obesity who presented to the [facility] ER originally with complaint of rectal pain and constipation. Patient was admitted for UTI and pyelonephritis on CT. He was started on antibiotics. During hospitalization the patient developed a mechanical SBO. NG tube was placed and patient was evaluated by surgery. He is continued on medical management PROBLEMS: 1. Mechanical Small Bowel Obstruction/Ileus -Patient has a large ventral hernia which is likely the etiology of his SBO. Currently does not appear incarcerated. Patient has been evaluated by General surgery. -NG tube is currently in place set to LIS. Gastric drainage is clearing up and decreasing. ~200cc currently at bedside. Abdominal flat plat has been ordered by General Surgery this morning. Recommendations and assistance is appreciated -Patient has had a small BM. Will continue with bowel regimen -Patient will need outpatient evaluation and fixation of his ventral hernia 2. Ventral Hernia -Patient has a large ventral hernia which is likely the cause of his SBO. He will need surgical correction in the future. Ideally this can be done on an outpatient basis. Patient has requested that he see Dr. Judd for his surgery. 3. Pyelonephritis with Staghorn Calculus in the R renal Pelvis -Patient currently on Levaquin. Patient has been evaluated by Urology. Recommendations and assistance is appreciated. He will need a percutaneous nephrolithotomy at some point. This will likely be done in the outpatient setting. -UA only resulted in yeast like organism. Will complete a 5 day course of Levaquin. Will discontinue tomorrow 4. Paroxysmal Atrial Fibrillation -Patient has remained rate controlled. His metoprolol is on hold currently due to his NPO status. NG tube is clamped. If patient is able to tolerate PO then will resume Metoprolol -Anticoagulation is currently on hold due to possible surgery. If patients SBO resolves then will start Xarelto again 5. Lower Extremity Edema -Patient has chronic lower extremity edema. He is on Spironolactone and torsemide outpatient. He does not currently have a PCP. 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 -He will need evaluation outpatient for his leg swelling 6. Hypoglycemia -Patient noted to be hypoglycemic. Likely secondary to NPO status. IVF changed to D5 half normal by overnight provider. -Will continue to monitor. Hypoglycemic protocol ordered 7. Positive Blood Culture x1 -Likely a contaminant; Staph Epidermidis 8. Morbid Obesity -Complicates care 9. DVT prophylaxis -Heparin until Xarelto is resumed VS, I&O, 24H, Fishbone Vital Signs/I&O Vital Signs Date Time Temp Pulse Resp B/P (MAP) Pulse Ox O2 Delivery O2 Flow Rate FiO2 07/21/20 09:00 67 109/63 07/21/20 06:00 98.0 20 96 Room Air I&O- Last 24 Hours up to 6 AM 07/21/20 06:00 Intake Total 967 ml Output Total 3375 ml Balance -2408 ml Laboratory Data 24H LABS Laboratory Tests 2 07/20/20 16:26: Bedside Glucose (Misc Panel) 73L 07/21/20 00:11: Bedside Glucose (Misc Panel) 56L 07/21/20 01:08: Bedside Glucose (Misc Panel) 86 07/21/20 06:14: Nucleated Red Blood Cells % (auto) 0.0, Anion Gap 3L, Glomerular Filtration Rate > 60.0, Calcium Level 8.2L 07/21/20 12:04: Bedside Glucose (Misc Panel) 64L 07/21/20 13:04: Bedside Glucose (Misc Panel) 86 CBC/BMP Laboratory Tests 07/21/20 06:14 Microbiology Microbiology 07/16/20 Urine Culture - Preliminary, Resulted Yeast Like Organism 07/16/20 Blood Culture - Preliminary, Resulted No Growth after 72 hours. All specime... 07/16/20 Blood Culture - Final, Complete Staphylococcus Epidermidis GME ATTESTATION GME ATTESTATION My faculty preceptor for this patient encounter was physically present during the encounter and was fully available. All aspects of the patient interview, examination, medical decision making process, and medical care plan development were reviewed and approved by the faculty preceptor. The faculty preceptor is aware and concurs with the plan as stated in the body of this note and will attest to such by his/her cosignature. ATTENDING NOTE I, Philip Sullivan, have independently examined this patient and performed my own physical exam, as well as reviewed the documentation and edited where necessary. I have discussed in detail with the resident / student the findings and plan of treatment as documented by the resident / student and edited their note. I agree with their findings and treatment plan and have edited their documentation. I will continue to follow the patient during this hospital stay. ANGEL RODAS DO Jul 21, 2020 14:34 PHILIP SULLIVAN MD Jul 21, 2020 15:30
[2020-07-21] MEDS: KCL 40MEQ IN D5/0.45NS 1000ML 1,000 ML IV SCH (17:17)
[2020-07-21] MEDS: RAMELTEON 8 MG TAB (ROZEREM) PO SCH (20:59)
[2020-07-21 22:00] VITALS: BP 103/61
[2020-07-21] MEDS: diphenhydrAMINE 50MG/ML VIAL (J1200) IV PRN (23:02)
[2020-07-21] MEDS ORDERED: SALIVA SUBSTITUTE(MOUTHKOTE) BTL MT PRN (23:45)
[2020-07-22] MEDS: HEPARIN SOD (PORCINE) 5000UNITS/ML 1ML VIAL/SYRINGE SQ SCH ×3 (00:58→17:37)
[2020-07-22] MEDS: KCL 40MEQ IN D5/0.45NS 1000ML 1,000 ML IV SCH ×3 (01:54→17:37)
[2020-07-22] MEDS: hydrOXYzine 25 MG TAB PO PRN ×2 (01:54→09:24)
[2020-07-22] MEDS: LevoFLOXacin IV 500 MG in IV 1 EA IV SCH (05:39)
[2020-07-22 06:00] VITALS: BP 101/63
[2020-07-22 06:58] LABS: HEMATOCRIT 34.9 % (42.0-52.0); MEAN CORPUSCULAR HEMOGLOBIN 29.3 pg (27.0-33.0); MEAN CORPUSCULAR HGB CONC 31.5 g/dl (32.0-36.5); MEAN CORPUSCULAR VOLUME 93.1 fl (80.0-96.0); PLATELET COUNT, AUTOMATED 113 10^3/uL (150-450); RED BLOOD COUNT 3.75 10^6/uL (4.30-6.10); WHITE BLOOD COUNT 9.9 10^3/uL (4.0-10.0)
[2020-07-22 07:25] LABS: BLOOD UREA NITROGEN 8 MG/DL (7-18); CARBON DIOXIDE LEVEL 29 MEQ/L (21-32); CHLORIDE LEVEL 105 MEQ/L (98-107); CREATININE FOR GFR 0.67 MG/DL (0.70-1.30); GLOMERULAR FILTRATION RATE > 60.0 (>49); GLUCOSE, FASTING 93 MG/DL (70-100); POTASSIUM SERUM 3.7 MEQ/L (3.5-5.1); SODIUM LEVEL 138 MEQ/L (136-145)
[2020-07-22] MEDS: METOPROLOL SUCC *XL* 25MG TAB (TopROL *XL*) PO SCH ×2 (09:00→21:00)
[2020-07-22] MEDS ORDERED: BISACODYL 10 MG SUPP PR SCH (09:00)
[2020-07-22] MEDS: BISACODYL 10 MG SUPP PR SCH ×2 (09:24→21:00)
[2020-07-22] MEDS: DOCUSATE SODIUM 100MG CAPSULE PO SCH ×2 (09:24→21:21)
--- NOTE | 2020-07-22 11:47 | IPNPDOC ---
Text Note Date of Service The patient was seen on 07/22/20. NOTE Subjective: Patient is a 65-year-old male with a PMHx of Paroxysmal A fib (on Eliquis), PVD, BLE edema / Chronic venous stasis, Staghorn calculus in R renal pelvis (s/p Chronic Crowell catheter), Depression, Morbid obesity who presented to ER with rectal pain and constipation. Patient was admitted to hospital service for further evaluation and treatment. Urology was initially called on consultation, given leukocytosis and possible UTI/pyelonephritis. Patient's hospital course was admitted with further abdominal discomfort and possible small bowel obstruction. General surgery was called on consultation. Patient was seen and examined at the bedside. Overnight patient had his NG tube discontinued. Patient denies any nausea, vomiting. Denies any significant abdominal pain. Has been having bowel movements and passing gas. Denies any chest pain, shortness breath, palpitations. Objective: Vitals (See below) General: Lying in bed, appears comfortable, AAOx3 HEENT: NC, AT CVS: +S1S2 Lungs: Fair air entry b/l, no evidence of wheezing / rhonchi / rales Abdomen: Soft, ND, NT, + Ventral hernia Extremities: LE with trace to 1+ pitting edema / Chronic venous stasis changes Assessment and plan: Abdominal pain / Nausea / Vomiting - likely 2/2 ileus; possibly 2/2 mechanical SBO 2/2 ventral hernia - Currently patient denies any nausea, vomiting, does not report any significant abdominal pain; has been having bowel movements - Hemodynamically stable and afebrile - NG tube removed overnight - c/w bowel regimen / manual disimpaction - General surgery on consultation; appreciate their input - Currently NPO; will discuss with surgery Ventral Hernia - Possible evaluation and treatment of ventral hernia during this hospitalization Pyelonephritis with Staghorn Calculus in the R renal Pelvis - Remains afebrile - s/p Leukocytosis - Urine culture 07/16: Yeast like organisms - s/p Levaquin x 5 day course - Urology on consultation. Will have outpatient follow-up for likely right percutaneous nephrolithonomy Paroxysmal Atrial Fibrillation - Patient remains rate controlled - Rate control with Metoprolol remains on hold while nothing by mouth status - Anticoagulation is currently on hold due to possible surgery; will resume Xarelto if no surgery is indicated Chronic Lower Extremity Edema / Chronic venous stasis - Patient has chronic lower extremity edema - Spironolactone / Torsemide as an outpatient - currently on hold Hypoglycemia - c/w Dextrose based fluids while NPO Staph Epidermidis Contaminant - 1 of 2 bottles only Morbid Obesity - Complicating medical care DVT prophylaxis - c/w Heparin; will resume Eliquis post-operatively (re: Possible hernia repair) Disposition: - Awaiting clinical improvement VS,Tayebone, I+O VS, Fishbone, I+O Laboratory Tests 07/22/20 06:32 Vital Signs Date Time Temp Pulse Resp B/P (MAP) Pulse Ox O2 Delivery O2 Flow Rate FiO2 07/22/20 09:00 75 102/60 07/22/20 06:00 98.2 20 96 Room Air I&O- Last 24 Hours up to 6 AM 07/22/20 05:59 Intake Total 2420 ml Output Total 1100 ml Balance 1320 ml SHADY GONZALES MD Jul 22, 2020 11:47
[2020-07-22] MEDS ORDERED: MOM 30ML SUSPENSION UDC PO ONE (12:15)
--- NOTE | 2020-07-22 13:40 | IPN ---
PROGRESS NOTE DATE: 07/19/2020 HISTORY: Patient is a 65-year-old man with multiple medical problems including a ventral hernia slightly above the umbilicus. This has been noted for some time and plans were in place to repair this approximately a year ago, when the plans were delayed by the COVID pandemic. He was recently admitted with a urinary tract infection. He has had some pain in his abdomen and his hernia has been prominent. Surgery was consulted to evaluate this. He has been found to have some degree of obstipation and his hernia has not been felt to be the cause for his medical issues. VITAL SIGNS: Patient has remained afebrile over the past 24 hours. His pulse has generally been in the 60s. His blood pressure is good. INTAKE AND OUPTUT: Show that yesterday he had 1880 in with 3200 recorded out in urine and nasogastric (NG) output. He has been taking, I believe, some ice chips. PHYSICAL EXAMINATION: The patient is lying quietly in the hospital bed. He has an NG tube in place, which is putting out some primarily watery, perhaps white-feliz fluid. HEART EXAM: Shows a regular rate and rhythm. LUNGS: Clear. ABDOMEN: Markedly obese. He has a bulge approximately 5-7 cm above the umbilicus. The bulge is perhaps 12 cm across. It is moderately firm. With gentle palpation and pressure, it is possible to reduce his hernia completely. When pressure is released, it is clear that he has air-filled loops of bowel that protrude through his hernia again. When this occurs, he has some discomfort. The remainder of the abdomen is full, but without any significant tenderness. LABORATORY STUDIES: Today show a white count of 9 with a hemoglobin of 11, hematocrit 36 and a platelet count of 118,000. His chemistries show normal electrolytes with a BUN of 13, creatinine 0.8. The glucose is 86. He had an abdominal x-ray this afternoon. It shows some air in some scattered, mildly dilated small bowel loops. There is not any definite free air seen. There is some air in the colon as well as some stool in the distal colon and rectum. IMPRESSION: Patient clearly has a hernia protruding, but this is reducible. I do not believe this is responsible for a bowel obstruction. I suspect his problems are primarily associated with some obstipation and possible ileus associated with his urinary tract infection. RECOMMENDATIONS: I would recommend further attempts to clear his bowel. On some of his imaging, he appears to have some degree of fecal impaction in the rectum and a digital rectal exam would be appropriate. We will continue to monitor the patient regarding his hernia. At some point, he certainly should have this repaired electively, but we would like to avoid doing this while he has his urinary tract infection. LYNDA
--- NOTE | 2020-07-22 13:47 | IPN ---
PROGRESS NOTE DATE: 07/20/2020 HISTORY: Patient was admitted with a urinary tract infection several days ago. He has a known ventral hernia, which has been prominent, but was clearly reducible yesterday. VITAL SIGNS: Show that he has been afebrile over the past 24 hours. His pulse remains on the 60s to low 70s. His blood pressure is good. Room air oxygen saturations are normal. INTAKE AND OUTPUT: Show that yesterday he had 1300 recorded in with 2500 recorded out; 1300 mL was urine output and 1200 was from his nasogastric (NG). He has been taking some ice chips, though it is hard to know how much this represented. PHYSICAL EXAMINATION: Patient appears fairly comfortable in the bed. His NG tube is putting out primarily some white, watery fluid with a little bit of brownish flecks. HEART AND LUNG EXAM: Unremarkable. ABDOMEN: Remains morbidly obese. His hernia bulge is present. It seems somewhat softer than yesterday and remains reducible, though with reduction there is some discomfort. It does protrude again after I release pressure on his hernia. The abdomen is perhaps slightly less distended than yesterday. LABORATORY STUDIES: Show a white count of 8 with a hemoglobin of 11, hematocrit 36 and a platelet count of 110,000. His chemistry profile shows normal electrolytes with a carbon dioxide of 33, BUN of 17, creatinine 0.86 and a glucose of 74. His lactic acid last evening was 1.2. IMPRESSION: Patient's hernia remains reducible. He seems somewhat more comfortable today. The remainder of his abdomen is perhaps a little softer. RECOMMENDATIONS: At this point, I would continue his treatment for his urinary tract infection. He has received a variety of laxatives and treatment for his constipation and he is starting to show some increased bowel function. I will continue to monitor his hernia, but do not think that he has any need for urgent surgery at this time. LYNDA
[2020-07-22 13:54] VITALS: BP 111/63
--- NOTE | 2020-07-22 14:31 | IPN ---
PROGRESS NOTE DATE: 07/22/2020 SUBJECTIVE: Patient has been pulling out his nasogastric (NG) tube repetitively overnight. He did have some drainage, but it was not as much as it had been the day before. He had some bowel movements and smears yesterday and he is not having any nausea. No vomiting around this tube. His NG tube was removed earlier this morning and has tolerated this out without nausea, vomiting or abdominal pains or pressures outside of his normal discomfort. His white count is normal. PHYSICAL EXAMINATION: He still has a reducible incisional hernia above his umbilicus. It is nontender, although he is severely morbidly obese and it is quite difficult to reduce this hernia, but we are able to do that with some manipulation. IMPRESSION/PLAN: Patient has evidence of bowel movements, minimal NG output, and I feel that it is reasonable to discontinue the NG tube, start him on some clear liquids and see how he does with this, but I would recommend that he be up in a chair when we give him some clear liquids. He really does need to increase his overall activity level and we will give him some stool softeners in addition/possible laxatives to see if we can clean him out a little bit better than he has been. He has some chronic constipation issues that have been a problem for him and we will see if that does not make a difference.
--- NOTE | 2020-07-22 18:02 | IPN ---
PROGRESS NOTE DATE: 07/21/2020 SUBJECTIVE: The patient still has not had any bowel movements. Has had still some abdominal distention. No nausea. No vomiting. However, his NG tube really is not putting out a lot of drainage at this time today; although, he had a significant amount yesterday. He also had a bowel movement yesterday. He has been afebrile. Blood pressure has been stable. He has not been tachycardic and urine output has been good. Hematocrit stable. OBJECTIVE: Lungs clear anteriorly. Heart regular. Abdomen morbidly obese. He has a hernia along the midline that is partially reducible without guarding, without rebound, and without peritoneal signs. NG tube is not draining a significant amount at this time when I am looking at it and it looks like it may have been pulled out to some extent. IMPRESSION/PLAN: At this point, the patient has a probable ileus caused by urinary sepsis. It is hard to tell if that has now converted into a small bowel obstruction or is just an ileus that is persistent. At this point, I do feel that we need to keep him n.p.o. I would like to check the nasogastric (NG) tube placement and see if we cannot get him better decompressed. Once again unfortunately, we are in a situation with an infectious process on board and with his significant morbid obesity he will need a mesh repair. Otherwise, his recurrence rate will be extremely high for operative repair for this hernia and if that is the case, mesh repair in the setting of recent infection or possible ongoing infection is definitely not optimum. Thus, we will see if we cannot get him cleared from this infection and once he has been stabilized and cleared for some appropriate amount of time, then consideration of possible operative intervention for him would be reasonable. Otherwise, we will continue supportive care for now.
[2020-07-22] MEDS: RAMELTEON 8 MG TAB (ROZEREM) PO SCH (21:23)
[2020-07-22 22:00] VITALS: BP 107/63
[2020-07-23] MEDS: KCL 40MEQ IN D5/0.45NS 1000ML 1,000 ML IV SCH (01:09)
[2020-07-23] MEDS: HEPARIN SOD (PORCINE) 5000UNITS/ML 1ML VIAL/SYRINGE SQ SCH (01:09)
[2020-07-23 06:36] VITALS: BP 103/63
[2020-07-23 06:52] LABS: HEMOGLOBIN 11.1 g/dl (13.5-17.5); MEAN CORPUSCULAR HEMOGLOBIN 29.5 pg (27.0-33.0); MEAN CORPUSCULAR HGB CONC 31.7 g/dl (32.0-36.5); MEAN CORPUSCULAR VOLUME 93.1 fl (80.0-96.0); PLATELET COUNT, AUTOMATED 111 10^3/uL (150-450); RED BLOOD COUNT 3.76 10^6/uL (4.30-6.10)
[2020-07-23 07:07] LABS: BLOOD UREA NITROGEN 5 MG/DL (7-18); CALCIUM LEVEL 7.7 MG/DL (8.8-10.2); CARBON DIOXIDE LEVEL 29 MEQ/L (21-32); CHLORIDE LEVEL 105 MEQ/L (98-107); CREATININE FOR GFR 0.64 MG/DL (0.70-1.30); GLOMERULAR FILTRATION RATE > 60.0 (>49); GLUCOSE, FASTING 92 MG/DL (70-100); POTASSIUM SERUM 4.2 MEQ/L (3.5-5.1); SODIUM LEVEL 139 MEQ/L (136-145)
[2020-07-23 09:00] VITALS: BP 103/63
[2020-07-23] MEDS: METOPROLOL SUCC *XL* 25MG TAB (TopROL *XL*) PO SCH ×2 (09:00→20:19)
[2020-07-23] MEDS: BISACODYL 10 MG SUPP PR SCH ×2 (09:00→20:19)
[2020-07-23] MEDS: MIRALAX *UNIT DOSE* 17GM PACKET PO SCH (09:28)
[2020-07-23] MEDS: DOCUSATE SODIUM 100MG CAPSULE PO SCH ×2 (09:29→20:18)
--- NOTE | 2020-07-23 09:46 | IPNPDOC ---
Text Note Date of Service The patient was seen on 07/23/20. VS,Tayebone, I+O VS, Fishbone, I+O Laboratory Tests 07/23/20 06:23 Vital Signs Date Time Temp Pulse Resp B/P (MAP) Pulse Ox O2 Delivery O2 Flow Rate FiO2 07/23/20 09:00 75 103/63 07/23/20 06:36 97.0 20 96 Room Air I&O- Last 24 Hours up to 6 AM 07/23/20 06:00 Intake Total 2480 ml Output Total 800 ml Balance 1680 ml SHADY GONZALES MD Jul 23, 2020 09:46
[2020-07-23] MEDS ORDERED: BISA10SU PR (12:13)
[2020-07-23] MEDS ORDERED: FLEEENE12 PR (12:13)
[2020-07-23] MEDS ORDERED: DOK1CAP7 PO (12:13)
[2020-07-23] MEDS ORDERED: POLY17PO18 PO (12:13)
--- NOTE | 2020-07-23 12:59 | DS.PDOC ---
Discharge Summary General Date of Admission Jul 18, 2020 at 10:16 Date of Discharge 07/23/2020 Discharge Summary PROCEDURES PERFORMED DURING STAY: [None]. ADMITTING DIAGNOSES / DISCHARGE DIAGNOSES: s/p Abdominal pain / Nausea / Vomiting - likely 2/2 ileus; possibly 2/2 mechanical SBO 2/2 ventral hernia Ventral Hernia Pyelonephritis with Staghorn Calculus in the R renal Pelvis Paroxysmal Atrial Fibrillation Chronic Lower Extremity Edema / Chronic venous stasis Hypoglycemia Staph Epidermidis Contaminant Morbid Obesity DVT prophylaxis COMPLICATIONS/CHIEF COMPLAINT: Constipation HISTORY OF PRESENT ILLNESS: Patient is a 65-year-old male with a PMHx of Paroxysmal A fib (on Eliquis), PVD, BLE edema / Chronic venous stasis, Staghorn calculus in R renal pelvis (s/p Chronic Crowell catheter), Depression, Morbid obesity who presented to ER with rectal pain and constipation. Patient was admitted to hospital service for further evaluation and treatment. Urology was initially called on consultation, given leukocytosis and possible UTI/pyelonephritis. Patient's hospital course was admitted with further abdominal discomfort and possible small bowel obstruction. General surgery was called on consultation. Patient was seen and examined at the bedside. Patient reports that he's been having several bowel movements yesterday. Denies any nausea, vomiting or abdominal pain. Denies any chest pain, shortness breath, palpitations. Did attempt to sit up in a chair yesterday. Will continue to work with physical therapy today HOSPITAL COURSE: s/p Abdominal pain / Nausea / Vomiting - likely 2/2 ileus; possibly 2/2 mechanical SBO 2/2 ventral hernia - Patient has reported resolution of his symptoms; denies nausea, vomiting and abdominal pain and continues to have regular bowel movements - Hemodynamically stable and afebrile - s/p NG tube removal - c/w bowel regimen / manual disimpaction; will add additional medications to his bowel regimen - General surgery on consultation; appreciate their input - Tolerating advanced diet - Will transition back to rehabilitation today - Follow-up with primary care provider, and general surgery within the next 7 days Ventral Hernia - Will have outpatient follow-up with Dr. Judd for surgical correction Pyelonephritis with Staghorn Calculus in the R renal Pelvis - Remains afebrile - s/p Leukocytosis - Urine culture 07/16: Yeast like organisms - s/p Levaquin x 5 day course - Urology on consultation. Will have outpatient follow-up for likely right percutaneous nephrolithonomy Paroxysmal Atrial Fibrillation - Patient remains rate controlled - c/w Rate control with Metoprolol - with hold parameters - Will resume Xarelto today Chronic Lower Extremity Edema / Chronic venous stasis - Patient has chronic lower extremity edema - Spironolactone / Torsemide on hold; will need to be re-evaluated and resumed within 3 days Hypoglycemia - Diet advanced and tolerating - s/p Dextrose based fluids Staph Epidermidis Contaminant - 1 of 2 bottles only Morbid Obesity - Complicating medical care DVT prophylaxis - c/w Heparin; will resume Xarelto today DISCHARGE MEDICATIONS: Please see below. ALLERGIES: Please see below. PHYSICAL EXAMINATION ON DISCHARGE: Vitals (See below) General: Patient is lying in bed, appears to be comfortable, not in any acute distress, is awake, alert and oriented 3 HEENT: Normocephalic and atraumatic CVS: +S1S2 Lungs: Air entry is fair bilaterally without any evidence of crackles, wheezing or rhonchi Abdomen: Patient's abdomen is soft without any appreciated tenderness. There is a ventral hernia that is noted Extremities: Lower extremities reveal chronic venous stasis changes and 1+ pi tting edema LABORATORY DATA: Please see below. IMAGING: CT abdomen / pelvis 07/16: 1. Large 4 cm staghorn calculus in the right renal pelvis. Adjacent fat stranding to the right renal pelvis and proximal ureter suggest possible superimposed acute pyelitis. 2. Moderate stool burden in the rectum and colon. Correlate clinically for history of constipation. 3. Other chronic findings, as above. CXR 07/18: 1. Feeding tube seen with its tip in the stomach. 2. No focal consolidation. Low lung volume with nonspecific prominent interstitial marking could be due to prominent bronchovascular markings due to hypoventilation however interstitial lung process cannot be excluded. Overall there is improved aeration of the lung fernandes as compared to the prior exam. Abdominal XR 07/21: 1. Nasogastric tube terminates in the distal esophagus and requires advancement. 2. Nonspecific bowel gas pattern. ACTIVITY: [As tolerated]. DISCHARGE PLAN: Follow-up with primary care provider, and general surgery within the next 7 days Remain compliant with treatment plan and medications Return to the ER if you experience any problems DISPOSITION: [facility] DISCHARGE CONDITION: [Stable]. TIME SPENT ON DISCHARGE: 35 minutes. Vital Signs/I&Os Vital Signs Date Time Temp Pulse Resp B/P (MAP) Pulse Ox O2 Delivery O2 Flow Rate FiO2 07/23/20 09:00 75 103/63 07/23/20 06:36 97.0 20 96 Room Air I&O- Last 24 Hours up to 6 AM 07/23/20 05:59 Intake Total 2180 ml Output Total 825 ml Balance 1355 ml Laboratory Data Labs 24H Laboratory Tests 2 07/22/20 18:23: Bedside Glucose (Misc Panel) 117H 07/23/20 01:10: Bedside Glucose (Misc Panel) 82 07/23/20 06:23: Nucleated Red Blood Cells % (auto) 0.0, Anion Gap 5L, Glomerular Filtration Rate > 60.0, Calcium Level 7.7L CBC/BMP Laboratory Tests 07/23/20 06:23 FSBS Laboratory Tests Test 07/22/20 18:23 07/23/20 01:10 Range/Units Bedside Glucose (Misc Panel) 117 82 80-115 MG/DL Microbiology Microbiology 07/23/20 Respiratory Virus Panel (PCR) (ANATOLIY), Received Pending 07/16/20 Urine Culture - Final, Complete Yeast Like Organism Enterobacter Cloacae Ssp Cloac 07/16/20 Blood Culture - Final, Complete NO GROWTH AFTER 5 DAYS 07/16/20 Blood Culture - Final, Complete Staphylococcus Epidermidis Discharge Medications Scheduled Bisacodyl (Bisacodyl) 10 Mg Supp.rect, 10 MG KS BID Docusate Sodium (Dok) 100 Mg Capsule, 200 MG PO BID Metoprolol Succinate (Metoprolol Succinate) 25 Mg Tab.er.24h, 25 MG PO BID, (Reported) Polyethylene Glycol 3350 (Polyethylene Glycol 3350) 17 Gm Powd.pack, 1 PKT PO DAILY Potassium Chloride (Potassium Chloride) 20 Meq Tab.er.prt, 20 MEQ PO DAILY, (Reported) Ramelteon (Rozerem) 8 Mg Tablet, 8 MG PO QHS, (Reported) Rivaroxaban (Xarelto) 20 Mg Tablet, 20 MG PO QHS, (Reported) Scheduled PRN Nystatin (Nystatin Powder) 15 Gm Powder, 1 DOSE TOP TID PRN for RASH, (Reported) APPLY TO STOMACH FOLDS AND UNDERARMS Sodium Phosphate,[place]-Dibasic (Fleet Enema) 133 Ml Enema, 1 EA [place] DAILYPRN PRN for CONSTIPATION Allergies Coded Allergies: No Known Allergies (Verified , 07/12/07) SHADY GONZALES MD Jul 23, 2020 12:59
[2020-07-23 14:00] VITALS: BP 104/64
[2020-07-23] MEDS ORDERED: RIVAROXABAN 20 MG TAB (XARELTO) PO SCH (18:00)
[2020-07-23] MEDS: RAMELTEON 8 MG TAB (ROZEREM) PO SCH (20:18)
[2020-07-23 22:00] VITALS: BP 105/64
[2020-07-24 06:00] VITALS: BP 116/71
[2020-07-24] MEDS: MIRALAX *UNIT DOSE* 17GM PACKET PO SCH (08:43)
[2020-07-24] MEDS: DOCUSATE SODIUM 100MG CAPSULE PO SCH (08:43)
[2020-07-24 08:44] VITALS: BP 113/71
[2020-07-24] MEDS: METOPROLOL SUCC *XL* 25MG TAB (TopROL *XL*) PO SCH (08:44)
[2020-07-24] MEDS: BISACODYL 10 MG SUPP PR SCH (08:45)
--- NOTE | 2020-07-24 12:52 | IPNPDOC ---
Date Seen The patient was seen on 07/24/20. Progress Note SUBJECTIVE: Patient is a 65 yo M, with a hx of paroxysmal afib (on eliquis), PVD, chronic venous stasis, PVD, staghorn calculus in R renal pelvic (chronic mccarthy), depression and morbid obesity. Presented to ER with rectal pain and constipation. Patient was admitted for management of pyelonephritis and possible ileus/SBO. Patient was seen and examined at bedside. Doing well this morning. Tolerating regular diet, passing gas. No nausea, no vomiting, no fevers or chills. He does not c/o chest pain, SOB, palpitations. OBJECTIVE PHYSICAL EXAMINATION: VITAL SIGNS: please see below General: [place]. NAD, comfortable HEENT: PERRLA, EOMI, sclerae clear Neck: supple, normal ROM, no JVD Respiratory: lungs CTAB, no wheeze, no rales, no crackles CVS: RRR, normal S1, S2, no murmurs Abdo: obese, soft, no masses, no hepatosplenomegaly, BS+, no rebound tenderness Extremities: chronic venous stasis changes LABORATORY DATA, IMAGING STUDIES, MICROBIOLOGY: Please see below. DVT prophylaxis ordered?: xarelto ASSESSMENT AND PLAN: s/p Abdominal pain / Nausea / Vomiting - likely 2/2 ileus; possibly 2/2 mechanical SBO 2/2 ventral hernia - Patient has reported resolution of his symptoms; denies nausea, vomiting and abdominal pain and continues to have regular bowel movements - he is tolerating diet - Hemodynamically stable and afebrile - s/p NG tube removal - will be DC back to [facility] today - please see Dr. Sullivan's DC summary from 07/23/20 for detailed overview of stay. - Follow-up with primary care provider, and general surgery within the next 7 d ays Ventral Hernia - Will have outpatient follow-up with Dr. Judd for surgical correction Pyelonephritis with Staghorn Calculus in the R renal Pelvis - Remains afebrile - s/p Leukocytosis - Urine culture 07/16: Yeast like organisms - s/p Levaquin x 5 day course - Urology on consultation. 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 VS, I&O, 24H, Fishbone Vital Signs/I&O Vital Signs Date Time Temp Pulse Resp B/P (MAP) Pulse Ox O2 Delivery O2 Flow Rate FiO2 07/24/20 08:44 82 113/71 07/24/20 06:00 97.3 18 96 Room Air I&O- Last 24 Hours up to 6 AM 07/24/20 06:00 Intake Total 3810 ml Output Total 525 ml Balance 3285 ml Laboratory Data 24H LABS Laboratory Tests 2 07/23/20 16:43: Bedside Glucose (Misc Panel) 89 07/24/20 11:58: Bedside Glucose (Misc Panel) 125H Microbiology Microbiology 07/23/20 Respiratory Virus Panel (PCR) (ANATOLIY) - Final, Complete 07/16/20 Urine Culture - Final, Complete Yeast Like Organism Enterobacter Cloacae Ssp Cloac 07/16/20 Blood Culture - Final, Complete NO GROWTH AFTER 5 DAYS 07/16/20 Blood Culture - Final, Complete Staphylococcus Epidermidis MITESH MALDONADO MD Jul 24, 2020 12:52
[2020-07-24 14:00] VITALS: BP 113/71
== END 2020-07-24 16:55 | DRG 389 ==
LOC: EDBD 16:46 → M ED 16:46 → M ED INP 16:47 → ENRESERV 07-17 01:48 → M MS5PR 07-17 02:05 → OBSVTOIN 07-18 10:16 → EEVIPCON 07-18 10:16
PROVIDERS: ADMIT General Practice; ATTEND Internal Medicine
DX: K56.7 Ileus, unspecified (principal); Z68.43 Body mass index [BMI] 50.0-59.9, adult; D62 Acute posthemorrhagic anemia; K43.6 Other and unspecified ventral hernia with obstruction, without gangrene; K59.09 Other constipation; I48.0 Paroxysmal atrial fibrillation; F32.9 Major depressive disorder, single episode, unspecified; E66.01 Morbid (severe) obesity due to excess calories; I73.9 Peripheral vascular disease, unspecified; R60.0 Localized edema; E16.2 Hypoglycemia, unspecified; R31.0 Gross hematuria; G47.00 Insomnia, unspecified; N18.30 Chronic kidney disease, stage 3 unspecified; N20.0 Calculus of kidney; Z96.642 Presence of left artificial hip joint; Z90.49 Acquired absence of other specified parts of digestive tract; Z87.891 Personal history of nicotine dependence; Z79.01 Long term (current) use of anticoagulants; Z79.899 Other long term (current) drug therapy

== ENCOUNTER 2020-07-29 14:38 | Emergency (ER) | payer MEDICARE ==
[~2020-07-29] VITALS: Ht 170.2 cm; Wt 159.6 kg
[~2020-07-29 14:38] MED LIST changes: +BISA10SU PR; +DOK1CAP7 PO; +FLEEENE12 PR; +PATIENT COMMENT; +POLY17PO18 PO; +POTA20TA6 PO; +ROZE8TAB16 PO; +SPIR50TA4 PO
[2020-07-29] MEDS ORDERED: KETOROLAC 30 MG/ML 1ML VIAL IV ONE (15:25)
[2020-07-29 15:34] LABS: BASO % 0.4 % (0.0-1.0); EOS # 0.3 10^3/uL (0.0-0.5); EOS % 3.7 % (0.0-3.0); HEMATOCRIT 35.1 % (42.0-52.0); HEMOGLOBIN 11.1 g/dl (13.5-17.5); LYMPH # 0.9 10^3/uL (1.5-5.0); LYMPH % 10.9 % (24.0-44.0); MEAN CORPUSCULAR HGB CONC 31.6 g/dl (32.0-36.5); MEAN CORPUSCULAR VOLUME 94.9 fl (80.0-96.0); MONO # 0.9 10^3/uL (0.0-0.8); MONO % 11.1 % (2.0-8.0); NEUTROPHILS # 6.1 10^3/uL (1.5-8.5); NEUTROPHILS % 72.9 % (36.0-66.0); PLATELET COUNT, AUTOMATED 100 10^3/uL (150-450); WHITE BLOOD COUNT 8.4 10^3/uL (4.0-10.0)
[2020-07-29 16:14] LABS: ALBUMIN 2.6 GM/DL (3.2-5.2); BILIRUBIN,DIRECT 0.4 MG/DL (0.0-0.2); TOTAL PROTEIN 6.9 GM/DL (6.4-8.2)
--- NOTE | 2020-07-29 16:25 | REP ---
INDICATION: renal calc r/o obstr. COMPARISON: Abdomen pelvis CTs dated 07/16/2020, 04/06/2020 and 11/16/2018. TECHNIQUE: Abdomen pelvis CT without IV contrast or bowel contrast. FINDINGS: There is a known right renal staghorn calculus measuring approximately 4 cm in diameter, unchanged from all prior studies. There is no hydronephrosis or hydroureter. There is stranding in the retroperitoneal fat surrounding the proximal right ureter near the junction with the right renal pelvis. This is unchanged from prior studies dating to 04/06/2020 and could represent chronic ureteritis, fibrosis or neoplasm.. It was not present on 11/16/2018. There is no perinephric stranding on the right or the left. There are no left renal calculi. There is no left hydronephrosis or perinephric stranding. There is a Crowell catheter in the bladder in the bladder is nondistended. The patient has a known large ventral hernia containing large and small bowel loops. There is no evidence of bowel obstruction or strangulation. This is unchanged from the prior studies. There are small bilateral pleural effusions as a change from 07/16/2020. There is atelectasis in the lower lobes adjacent to the fusions, also a change. The unenhanced hepatic parenchyma, pancreas and spleen are unremarkable. The patient reportedly has a cholecystectomy. The abdominal aorta is unremarkable. The mesentery and bowel are unremarkable except for the chronic large ventral hernia previously described. Pelvis: Patient reportedly has an appendectomy. There is descending colon and sigmoid colon diverticulosis without diverticulitis. This is unchanged. There is wall thickening of the descending colon compatible with inflammatory versus infectious colitis in the appropriate clinical setting. This is a change from 07/16/2020 There is no pelvic ascites or adenopathy. There is a total left hip arthroplasty. This is unchanged. There is advanced right hip osteoarthritis. This is unchanged. IMPRESSION: Chronic staghorn calculus in the right renal pelvis as described. Chronic periureteral stranding of the proximal right ureter at its junction with the renal pelvis, unchanged from prior studies dating to 04/06/2020. Chronic ureteritis versus fibrosis, versus neoplasm. There is no hydronephrosis on the right or the left. Small bilateral pleural effusions with atelectasis in the adjacent lower lobe lung fernandes as a change from the most recent prior study of 07/16/2020. Chronic large ventral hernia containing large and small bowel loops with no evidence of bowel obstruction or strangulation. Wall thickening of the descending colon compatible with inflammatory versus infectious colitis in the appropriate clinical setting as a change from 07/16/2020. Chronic advanced right hip osteoarthritis. Left hip total arthroplasty. <Electronically signed by Nathan Belcher > 07/29/20 [id number]
[2020-07-29] MEDS ORDERED: BACTRIM 160MG/800MG DS TAB PO ONE (17:10)
[2020-07-29] MEDS ORDERED: BACT800T5 PO (17:12)
[2020-07-29 19:15] VITALS: BP 93/52
--- NOTE | 2020-07-30 13:13 | ED PDOC ---
Post-Departure Follow-Up ct abd/p faxed to dr alvarado for fu Camron Holland MD Jul 30, 2020 13:13
== END 2020-07-29 19:20 | disposition home or self-care (01) ==
LOC: EDBD 14:38 → M ED 14:38
DX: N39.0 Urinary tract infection, site not specified (principal); I11.9 Hypertensive heart disease without heart failure; E11.9 Type 2 diabetes mellitus without complications; Z79.899 Other long term (current) drug therapy; Z87.898 Personal history of other specified conditions
CPT/HCPCS: 74176; 80047; 80076; 81001; 83605; 83690; 85025; 93041; 96374; 99284; J1885

== ENCOUNTER → 2020-08-28 | Outpatient (POV) | payer MEDICARE ==
[~2020-08-28] VITALS: Ht 154.9 cm; Wt 151.0 kg
[~2020-08-28] MED LIST changes: +AMBI5TAB PO; +BACL10TA8 PO; +BACT800T5 PO; +COLA100C5 PO; +LEVO30TA PO; +METO25TA4 PO; +NEUR100C PO; +NYSTOI TOP; +ZOLO50TA PO
[2020-08-28 08:15] VITALS: BP 106/69
--- NOTE | 2020-08-31 08:17 | IRCOV ---
[facility] IR Consult Office Visit IR Consult Office Visit DATE: Aug 28, 2020 REASON FOR CONSULTATION/CHIEF COMPLAINT: Right Kidney stone. HISTORY OF PRESENT ILLNESS: 65-year-old male complains of 4-5 months of blood in urine on and off and recurrent bladder infections. He has a Crowell catheter in place. On routine imaging workup he was found to have a right renal staghorn calculus. He is referred by urology for PCNL access. He states in the past when he had his gallbladder removed he also had a kidney stone removal procedure. He is unsure when this was and he reports it was in [place]. He denies prior ureteral stents or kidney surgery. He is on Xarelto for atrial fibrillation. Patient denies chest pain, shortness of breath, fevers or chills. ALLERGIES: Please see below. HOME MEDICATIONS: Please see below. PAST MEDICAL HISTORY: Morbid obesity Diabetes Hypothyroidism Carpal tunnel syndrome Arthritis Left hip replacement Anxiety A. fib PAST SURGICAL HISTORY: Left hip replacement Umbilical hernia repair Appendectomy Cholecystectomy FAMILY HISTORY: Noncontributory. SOCIAL HISTORY: Ex-smoker. Quit 2 months ago. Denies alcohol or drugs. REVIEW OF SYSTEMS: Otherwise negative. PHYSICAL EXAMINATION: VITAL SIGNS: Please see below. GENERAL APPEARANCE: Appears well. Comfortable at rest. Not able to ambulate independently. Not able to sit up or turn independently. HEENT: No scleral icterus. RESPIRATORY: Normal breathing at rest. CARDIOVASCULAR: Normal rate. ABDOMEN: Soft nontender. Flanks soft nontender. EXTREMITIES: Bilateral lower extremity edema. Hemosiderin deposition and l ipodermatosclerosis with bulging varicose veins. NEUROLOGICAL: Alert and oriented. PSYCHIATRIC: Appropriate to circumstance. LABORATORY DATA: 07/29/2020 hemoglobin 11.1 hematocrit 35.1 WBC 8.4 platelets 100 07/23/2020 sodium 139 potassium 4.2 BUN 5 creatinine 0.64 GFR greater than 60 INR on 07/02/2020 2.46 Imaging: I personally reviewed the CT abdomen and pelvis without contrast from 07/29/2020. Large right staghorn calculus without hydronephrosis. No perinephric stranding. No left kidney stones. Large anterior abdominal wall hernia. ASSESSMENT/PLAN: 65-year-old male with right kidney stone presents for PCNL access. We discussed the risks and benefits of the procedure and patient is willing to proceed. We'll schedule the patient for right PCNL access with nephroureteral catheter placement. I spent 30 minutes reviewing patient's records, imaging and in consultation with the patient. Thank you for this referral. Cc Dr. Live Allergies Coded Allergies: No Known Allergies (Verified , 07/12/07) Home Medications Scheduled Baclofen (Baclofen), 5 MG PO TID, (Reported) Docusate Sodium (Colace), 100 MG PO BID, (Reported) Gabapentin (Neurontin), 100 MG PO TID, (Reported) Levothyroxine Sodium (Levo-T), 25 MCG PO DAILY, (Reported) Metoprolol Succinate (Metoprolol Succinate), 25 MG PO DAILY, (Reported) Potassium Chloride (Potassium Chloride), 20 MEQ PO BID, (Reported) Ramelteon (Rozerem), 8 MG PO QHS, (Reported) Rivaroxaban (Xarelto), 20 MG PO QHS, (Reported) Rivaroxaban (Xarelto), 20 MG PO QHS, (Reported) Sertraline Hcl (Zoloft), 50 MG PO DAILY, (Reported) Torsemide (Torsemide), 40 MG PO DAILY, (Reported) Discontinued Medications Bisacodyl (Bisacodyl), 10 MG SD BID Discontinued Reason: Pt states not taking Docusate Sodium (Dok), 200 MG PO BID Discontinued Reason: Pt states not taking Furosemide (Furosemide), 40 MG PO DAILY, (Reported) Discontinued Reason: Re-entering as new Metoprolol Tartrate (Metoprolol Tartrate), 25 MG PO BID, (Reported) Discontinued Reason: Pt states not taking Nystatin (Nystatin Powder), 1 DOSE TOP TID PRN for RASH, (Reported) Discontinued Reason: Pt states not taking Nystatin (Nystatin Oint), 1 APLCT TOP BID, (Reported) Discontinued Reason: Pt states not taking Polyethylene Glycol 3350 (Polyethylene Glycol 3350), 1 PKT PO DAILY Discontinued Reason: Pt states not taking Sertraline Hcl (Zoloft), 100 MG PO DAILY, (Reported) Discontinued Reason: Pt states not taking Sodium Phosphate,[place]-Dibasic (Fleet Enema), 1 EA SD DAILYPRN PRN for CONSTIPATION Discontinued Reason: Pt states not taking Sulfamethoxazole/Trimethoprim (Bactrim Ds Tablet), 1 TAB PO Q12H Discontinued Reason: Pt states not taking Zolpidem Tartrate (Ambien), 5 MG PO QHS, (Reported) Discontinued Reason: Pt states not taking VS, I&O, 24H, Fishbone Vital Signs/I&O Vital Signs Date Time Temp Pulse Resp B/P (MAP) Pulse Ox O2 Delivery O2 Flow Rate FiO2 08/28/20 08:15 97.6 68 20 106/69 (81) Room Air 93.0 MELANY MENJIVAR MD Aug 31, 2020 08:17
== END ==
LOC: M IRPOV 08:03
PROVIDERS: ATTEND Radiology Diagnostic Radiology
DX: N20.0 Calculus of kidney (principal); E03.9 Hypothyroidism, unspecified; E11.9 Type 2 diabetes mellitus without complications; E66.01 Morbid (severe) obesity due to excess calories; F41.9 Anxiety disorder, unspecified; I48.91 Unspecified atrial fibrillation; Z72.0 Tobacco use; Z79.01 Long term (current) use of anticoagulants; Z79.890 Hormone replacement therapy; Z79.899 Other long term (current) drug therapy; Z96.0 Presence of urogenital implants; Z96.642 Presence of left artificial hip joint

== ENCOUNTER → 2020-09-05 | Outpatient (CLI) | payer MEDICARE ==
[~2020-09-05] MED LIST changes: +ACET1TAB55 PO; +DULC10SU2 PR; +ISOVUE-300 61% 50ML VIAL As Ordered ONE; +LIDOCAINE 1% MDV 20ML VIAL As Ordered ONE; +MAGN400O50 PO; +MIDAZOLAM INJ 2MG/2ML VIAL (J2250 PER 1MG) As Ordered ONE; +POLY510P14 PO; +SIME180C25 PO; +SIME1CHW5 PO; +ceFAZolin 1GM VIAL (J0690 PER 500MG) As Ordered ONE; +cefTRIAXone SOD 1GM VIAL (J0696 PER 250MG) As Ordered ONE; +diphenhydrAMINE 50MG/ML VIAL (J1200) As Ordered ONE; +fentaNYL 100 MCG/2 ML INJECTION (J3010) As Ordered ONE; +med rec comment
--- NOTE | 2020-09-05 08:14 | IRHP ---
[facility] IR Pre-Procedure H & P General Date of Service: Sep 05, 2020 Procedure: Same Day Surgery Interval History and Physical I have seen the patient and reviewed last H & P performed within 30 days. There is no significant interval change. History of Present Illness Chief Complaint The patient is a 65-year-old male admitted with a reason for visit of Rt Kidney Stone. PRE-PROCEDURE DIAGNOSIS: Right kidney stone HEART: Normal rate. LUNGS: Normal breathing at rest. ASA Classification ASA Classification: III-Severe systemic dis. Mallampati Score: II NPO: Yes Problems with prior sedation: No Obstructive Sleep Apnea: Yes Plan moderate sedation Allergies Coded Allergies: No Known Allergies (Verified , 07/12/07) Home Medications Scheduled Baclofen (Baclofen), 5 MG PO TID, (Reported) Docusate Sodium (Colace), 100 MG PO BID, (Reported) Gabapentin (Neurontin), 100 MG PO TID, (Reported) Levothyroxine Sodium (Levo-T), 25 MCG PO DAILY, (Reported) Metoprolol Succinate (Metoprolol Succinate), 25 MG PO DAILY, (Reported) Potassium Chloride (Potassium Chloride), 20 MEQ PO BID, (Reported) Ramelteon (Rozerem), 8 MG PO QHS, (Reported) Rivaroxaban (Xarelto), 20 MG PO QHS, (Reported) Sertraline Hcl (Zoloft), 50 MG PO DAILY, (Reported) Torsemide (Torsemide), 40 MG PO DAILY, (Reported) Scheduled PRN Acetaminophen (Acetaminophen), 325 MG PO Q6H PRN for PAIN, (Reported) Discontinued Medications Bisacodyl (Bisacodyl), 10 MG OR BID Discontinued Reason: Pt states not taking Docusate Sodium (Dok), 200 MG PO BID Discontinued Reason: Pt states not taking Furosemide (Furosemide), 40 MG PO DAILY, (Reported) Discontinued Reason: Re-entering as new Metoprolol Tartrate (Metoprolol Tartrate), 25 MG PO BID, (Reported) Discontinued Reason: Pt states not taking Nystatin (Nystatin Powder), 1 DOSE TOP TID PRN for RASH, (Reported) Discontinued Reason: Pt states not taking Nystatin (Nystatin Oint), 1 APLCT TOP BID, (Reported) Discontinued Reason: Pt states not taking Polyethylene Glycol 3350 (Polyethylene Glycol 3350), 1 PKT PO DAILY Discontinued Reason: Pt states not taking Rivaroxaban (Xarelto), 20 MG PO QHS, (Reported) Discontinued Reason: Re-entering as new Sertraline Hcl (Zoloft), 100 MG PO DAILY, (Reported) Discontinued Reason: Pt states not taking Sodium Phosphate,[place]-Dibasic (Fleet Enema), 1 EA OR DAILYPRN PRN for CONSTIPATION Discontinued Reason: Pt states not taking Sulfamethoxazole/Trimethoprim (Bactrim Ds Tablet), 1 TAB PO Q12H Discontinued Reason: Pt states not taking Zolpidem Tartrate (Ambien), 5 MG PO QHS, (Reported) Discontinued Reason: Pt states not taking VS, I&O, 24H, Fishbone Laboratory Data 24H LABS Laboratory Tests 2 09/05/20 07:33: CBC/BMP MELANY MENJIVAR MD Sep 05, 2020 08:14
[2020-09-05 08:32] LABS: HEMATOCRIT 33.4 % (42.0-52.0); HEMOGLOBIN 10.6 g/dl (13.5-17.5); MEAN CORPUSCULAR HGB CONC 31.7 g/dl (32.0-36.5); MEAN CORPUSCULAR VOLUME 94.6 fl (80.0-96.0); PLATELET COUNT, AUTOMATED 147 10^3/uL (150-450); RED BLOOD COUNT 3.53 10^6/uL (4.30-6.10); WHITE BLOOD COUNT 6.9 10^3/uL (4.0-10.0)
[2020-09-05 08:45] LABS: BLOOD UREA NITROGEN 14 MG/DL (7-18); CALCIUM LEVEL 8.7 MG/DL (8.8-10.2); CARBON DIOXIDE LEVEL 30 MEQ/L (21-32); CHLORIDE LEVEL 101 MEQ/L (98-107); CREATININE FOR GFR 0.91 MG/DL (0.70-1.30); GLOMERULAR FILTRATION RATE > 60.0 (>49); GLUCOSE, FASTING 85 MG/DL (70-100); POTASSIUM SERUM 4.3 MEQ/L (3.5-5.1); SODIUM LEVEL 136 MEQ/L (136-145)
[2020-09-05 08:51] LABS: INR 1.3; PROTHROMBIN TIME 16.5 SECONDS (12.5-14.3)
[2020-09-05 11:40] VITALS: BP 130/60
--- NOTE | 2020-09-06 11:36 | IRPON ---
IR Postoperative Note Date Of Procedure: Sep 05, 2020 Time Of Procedure: 16:00 IR Postoperative Note IR Percutaneous nephroureteral catheter placement using fluoroscopic and ultrasound guidance. IR PCNL access. IR Nephrostogram and Ureterogram. IR moderate sedation. Clinical Information:Right kidney stone. Needs PCNL access. Physician: Dr. Ramirez. Procedure: The patient was advised of the benefits, risks, and alternatives of the procedure and informed consent was obtained. A time out was performed with verification of the patient's name, MRN, site of procedure, and type of procedure to be performed. The patient was positioned in the prone position on the angiographic table. The site was prepped and draped in the usual sterile fashion. Moderate sedation was performed by the physician including the presence of an independent trained RN who, assisted in monitoring the patient's level of consciousness and physiological status. Following the administration of fentanyl and Versed, the physician spent 60 minutes of continuous dsop-hq-malf time with the patient. A collar stitcher radiograph reveals a right staghorn calculus. The anticipated puncture site on the flank was anesthetized with lidocaine. Using fluoroscopy guidance, the lower pole calyx was accessed with a 21 Gauge Chiba needle. A nephrostogram and ureterogram were performed demonstrating obstructing staghorn calculus in the right renal pelvis. Hydronephrosis. No hydroureter. A wire was advanced through the needle under fluoroscopy guidance but could not be manipulated around the stone, from this angle of access A second 21-gauge Chiba needle was then used under fluoroscopy guidance to access the mid pole calyx. A [place] wire was then advanced into the collecting system, under fluoroscopy guidance, manipulated around the stone and down into the ureter. The needle was then exchanged for a nonvascular introducer set. The initial needle was removed. An Amplatz wire was then advanced under fluoroscopy guidance, down the ureter into the bladder. This sheath was removed over the wire. An 8 Georgian Cook nephroureteral catheter was then advanced over the wire, under fluoroscopy guidance into the renal collecting system. The catheter was advanced over the wire, down the ureter and into the bladder. The distal pigtail was formed and locked in position. A final nephrostogram and ureterogram were performed confirming positioning of the pigtail within the bladder and the catheter within the ureter and the renal collecting system with no extravasation. The catheter was sutured in position with 2-0 Prolene and a sterile dressing applied. The catheter was capped. The patient tolerated the procedure well and was returned to the PRU in stable condition. EBL: < 5 mL. Complications:None. Conclusion: 1. Nephrostogram and Ureterogram demonstratelarge staghorn calculus occupying the right renal pelvis with hydronephrosis. No hydroureter. 2. Successful right nephroureteral catheter placement for PCNL access. Patient to follow-up with urology for PCNL. Thank you for this referral. Cc MELANY Graves MD Sep 06, 2020 11:36
== END ==
LOC: M IRPRO 07:46
PROVIDERS: ATTEND Radiology Diagnostic Radiology
DX: N20.0 Calculus of kidney (principal); G89.18 Other acute postprocedural pain; Z79.890 Hormone replacement therapy; Z79.899 Other long term (current) drug therapy

== ENCOUNTER 2020-09-07 16:30 | Inpatient (IN) | payer MEDICARE ==
[~2020-09-07] VITALS: Ht 165.1 cm; Wt 133.5 kg
[~2020-09-07 16:30] MED LIST changes: -ISOVUE-300 61% 50ML VIAL As Ordered ONE; -LIDOCAINE 1% MDV 20ML VIAL As Ordered ONE; -MIDAZOLAM INJ 2MG/2ML VIAL (J2250 PER 1MG) As Ordered ONE; -POLY510P14 PO; -SIME1CHW5 PO; -ceFAZolin 1GM VIAL (J0690 PER 500MG) As Ordered ONE; -cefTRIAXone SOD 1GM VIAL (J0696 PER 250MG) As Ordered ONE; -diphenhydrAMINE 50MG/ML VIAL (J1200) As Ordered ONE; -fentaNYL 100 MCG/2 ML INJECTION (J3010) As Ordered ONE; -med rec comment
--- NOTE | 2020-09-07 17:18 | REP ---
INDICATION: abdominal pain, ? constipation COMPARISON: None. TECHNIQUE: Supine view of the abdomen and pelvis. FINDINGS: Bowel gas pattern demonstrates dilated air-filled loops of small and large bowel suggesting ileus although early small-bowel obstruction cannot be excluded. No obvious free air.. Catheter overlies the right side of the abdomen extending into the pelvis. IMPRESSION: Bowel gas pattern raise the possibility of ileus versus obstruction and close clinical observation is recommended. <Electronically signed by Drew Rosario > 09/07/20 [id number]
[2020-09-07] MEDS ORDERED: ISOVUE-370 76% 100ML VIAL As Ordered ONE (18:00)
[2020-09-07 18:07] LABS: BASO # 0.1 10^3/uL (0.0-0.2); BASO % 0.5 % (0.0-1.0); EOS # 0.3 10^3/uL (0.0-0.5); EOS % 2.8 % (0.0-3.0); HEMATOCRIT 34.7 % (42.0-52.0); LYMPH # 1.1 10^3/uL (1.5-5.0); LYMPH % 10.2 % (24.0-44.0); MEAN CORPUSCULAR HGB CONC 31.7 g/dl (32.0-36.5); MEAN CORPUSCULAR VOLUME 94.6 fl (80.0-96.0); MONO # 1.1 10^3/uL (0.0-0.8); MONO % 10.6 % (2.0-8.0); NEUTROPHILS # 7.7 10^3/uL (1.5-8.5); NEUTROPHILS % 74.8 % (36.0-66.0); PLATELET COUNT, AUTOMATED 124 10^3/uL (150-450); RED BLOOD COUNT 3.67 10^6/uL (4.30-6.10); WHITE BLOOD COUNT 10.4 10^3/uL (4.0-10.0)
[2020-09-07] MEDS ORDERED: NS 1,000 ML IV ONE (18:30)
--- NOTE | 2020-09-07 18:36 | REPVR ---
PROCEDURE INFORMATION: Exam: CT Abdomen And Pelvis With Contrast Exam date and time: 09/07/2020 5:57 PM Age: 65 years old Clinical indication: Abdominal pain; Additional info: Abdominal pain, constipation, R/O obstruction TECHNIQUE: Imaging protocol: Computed tomography of the abdomen and pelvis with contrast. Radiation optimization: All CT scans at this facility use at least one of these dose optimization techniques: automated exposure control; mA and/or kV adjustment per patient size (includes targeted exams where dose is matched to clinical indication); or iterative reconstruction. Contrast material: ISOVUE 370; Contrast volume: 100 ml; Contrast route: INTRAVENOUS (IV); COMPARISON: CT ABD PELVIS W/O CONTRAST 07/29/2020 3:40 PM FINDINGS: Tubes, catheters and devices: Status post interval placement of a percutaneous nephrostomy tube on the right. Partial staghorn calculus in the right collecting system again redemonstrated. Moderate dilatation of the right renal pelvis and calyces without significant dilatation of the right ureter. Pleural spaces: Small right pleural effusion. Compressive atelectasis both lung bases. Heart: Pericardial thickening versus small pericardial effusion, stable. Liver: Normal. No mass. Gallbladder and bile ducts: There has been a cholecystectomy. Pancreas: Normal. No ductal dilation. Spleen: Normal. No splenomegaly. Adrenal glands: Normal. No mass. Kidneys and ureters: See "Tubes, catheters and devices" finding. Stomach and bowel: Large small bowel containing mid ventral supraumbilical abdominal wall hernia again demonstrated demonstrating dilated small bowel loops, mild thickening of the small bowel wall. Findings may indicate incarceration. No evidence of intra-abdominal small-bowel obstruction. There is increased feces throughout the colon consistent with constipation. Impacted feces in the rectosigmoid with mild thickening of the bowel wall, findings which may suggest stercoral colitis. Moderate diverticulosis is present in the distal colon. No diverticulitis. Appendix: No evidence of appendicitis. Intraperitoneal space: Unremarkable. No free air. No significant fluid collection. Vasculature: The aortoiliac vessels demonstrate mild atherosclerotic calcification. Lymph nodes: Unremarkable. No enlarged lymph nodes. Urinary bladder: Crowell catheter within the urinary bladder. Reproductive: Unremarkable as visualized. Bones/joints: Slight anterolisthesis of L4 on L5. Moderate to severe central spinal stenosis L4-L5. Status post total hip replacement on the left. Severe arthropathic changes right hip joint. Soft tissues: There is soft tissue edema demonstrated in the abdominal wall, flanks and buttock regions consistent with anasarca. IMPRESSION: 1. There has been a cholecystectomy. 2. Status post interval placement of a percutaneous nephrostomy tube on the right. Partial staghorn calculus in the right collecting system again redemonstrated. Moderate dilatation of the right renal pelvis and calyces without significant dilatation of the right ureter. 3. Large small bowel containing mid ventral supraumbilical abdominal wall hernia again demonstrated demonstrating dilated small bowel loops, mild thickening of the small bowel wall. Findings may indicate incarceration. No evidence of intra-abdominal small-bowel obstruction. 4. There is increased feces throughout the colon consistent with constipation. Impacted feces in the rectosigmoid with mild thickening of the bowel wall, findings which may suggest stercoral colitis. 5. Moderate diverticulosis is present in the distal colon. No diverticulitis. 6. Anasarca. Electronically signed by: David Cabral On 09/07/2020 18:36:16 PM
[2020-09-07 18:37] LABS: ALBUMIN 2.7 GM/DL (3.2-5.2); BILIRUBIN,DIRECT 0.9 MG/DL (0.0-0.2); BILIRUBIN,TOTAL 1.8 MG/DL (0.2-1.0); TOTAL PROTEIN 7.6 GM/DL (6.4-8.2)
[2020-09-07] MEDS ORDERED: FLEET ENEMA PR ONE (19:30)
[2020-09-07] MEDS ORDERED: MAALOX 30 ML SUSP *UDC PO PRN (19:50)
[2020-09-07] MEDS ORDERED: POLY510P14 PO (19:53)
[2020-09-07] MEDS ORDERED: SIME1CHW5 PO (19:53)
--- NOTE | 2020-09-07 19:53 | HPEPDOC ---
[facility] Medical History & Physical Date of Admission Sep 07, 2020 Date of Service: Sep 07, 2020 History and Physical CHIEF COMPLAINT: constipation x 7 days HISTORY OF PRESENT ILLNESS: 65 yo M with a PMXH of afib on xarelto, morbid oebsity, PVD, R nephrolithiasis with hydronephrosis (s/p R nephrostomy on 09/05/20 by IR), as well as large chronic ventral hernia, presented to ER after being constipated for a week. He denies abdominal pain, fevers, chills, blood per rectum, chest pain, palpitations and SOB. CT abdomen showing dilated loops of small bowel, large vental hernia containing small bowel with concern for incarceration without evidence of SBO, as well as fecal impaction in rectosigmoid. Patient will be admitted to hospitalist service with surgical consultation for management of fecal impaction and evaluation of ventral hernia. Discussion with Dr. Cunningham took place, does not believe there to be hernia/bowel incarceration, recommending enema to assist with BM. PAST MEDICAL HISTORY: Paroxysmal atrial fibrillation on Xarelto Depression Morbid obesity Lower extremity edema PVD Chronic anemia Insomnia Staghorn calculus in right renal pelvis with gross hematuria Chronic indwelling mccarthy catheter PAST SURGICAL HISTORY: R nephrostomy tube placement by IR Dr. Ramirez 09/05/20 left hip replacement hernia repair cholecystectomy appendectomy SOCIAL HISTORY: Former smoker of 46 years 1-1.5 ppd quit 7 months ago. Denies alcohol use. Denies illicit and IV drug use. Lives at home with girlfriend and her son. Uses a walker at baseline. FAMILY HISTORY: Mother age 70s. Had hx of DM2 and heart disease ALLERGIES: Please see below. REVIEW OF SYSTEMS: 10 point ROS was conducted, relevant findings are noted in the HPI HOME MEDICATIONS: Please see below. PHYSICAL EXAMINATION: VITAL SIGNS: please see below General: NAD, comfortable HEENT: PERRLA, EOMI, sclerae clear Neck: supple, normal ROM, no JVD Respiratory: lungs CTAB, no wheeze, no rales, no crackles CVS: RRR, normal S1, S2, no murmurs Abdo: large ventral abdominal hernia, non tender to palpation, unable to reduce, no overlying erythema. : indwelling mccarthy in place, R nephrostomy in place, dressing clean dry intact Extremities: 1+ edema, pulses 1+. Chronic venous stasis changes. MSK: no joint deformities, normal ROM Neuro: moving all 4 extremities. CN 2-12 intact. Alert and oriented x 3 LABORATORY DATA: See below. IMAGING: CT abdomen pelvis with IV contrast (09/07/20): 1. There has been a cholecystectomy. 2. Status post interval placement of a percutaneous nephrostomy tube on the right. Partial staghorn calculus in the right collecting system again redemonstrated. Moderate dilatation of the right renal pelvis and calyces without significant dilatation of the right ureter. 3. Large small bowel containing mid ventral supraumbilical abdominal wall hernia again demonstrated demonstrating dilated small bowel loops, mild thickening of the small bowel wall. Findings may indicate incarceration. No evidence of intra-abdominal small-bowel obstruction. 4. There is increased feces throughout the colon consistent with constipation. Impacted feces in the rectosigmoid with mild thickening of the bowel wall, findings which may suggest stercoral colitis. 5. Moderate diverticulosis is present in the distal colon. No diverticulitis. 6. Anasarca Abdomen plain film (09/07/20): Bowel gas pattern raise the possibility of ileus versus obstruction and close clinical observation is recommended. MICROBIOLOGY: Please see below. ASSESSMENT: 65 yo M with a PMXH of afib on xarelto, morbid oebsity, PVD, R nephrolithiasis with hydronephrosis (s/p R nephrostomy on 09/05/20 by IR), as well as large chronic ventral hernia, presented to ER after being constipated fo r a week. . PLAN: #Constipation/fecal impaction - possible ileus - seen on CT. No BM x 7 days - D/w Dr. Cunningham, will proceed with rectal enema - once BM initiates, will give mag citrate/MOM - surgical consult placed for evaluation of hernia and possible incarceration, see below #Large ventral hernia - CT read possible bowel incarceration - Imaging reviewed by , does not believe there to be incarceration - surgical consult placed - currently patient is pain free, without nausea or vomiting - check LA #Staghorn calculus - CT showing moderate dilation of renal pelvis on R, without hydroureter - Large staghorn calculus redemonstrated - s/p R nephrostomy tube placement by Dr. Ramirez on 09/05/20 - Cr is within normal limits. Trend BMP - if Cr rises, to consult urology/IR - plan for OP f/u with IR. #Hyperbilirubinemia - T bili 1.8, D bili 0.9, chronically elevated - check liver US - CT abdo did not show CBD dilation - no RUQ pain #L leg numbness - onset after fall on L leg - check lumbar, knee, pelvic XR - possible radiculopathy #Paroxysmal atrial fibrillation - continue home metoprolol. - c/w xarelto for AC #Chronic anemia - Hgb at baseline, 11-12.0. #Lower extremity edema - continue home torsemide - monitor BMP daily - c/w potassium # Depression with insomnia - continue home ramelteon #Morbid obesity -BMI 56, complicates care DVT prophylaxis: c/w eliquis. Disposition: admitted for observation to med/surg pending clinical improvement. PT/OT placed for physical deconditioning. Vital Signs Vital Signs Date Time Temp Pulse Resp B/P (MAP) Pulse Ox O2 Delivery O2 Flow Rate FiO2 09/07/20 17:47 98.1 69 22 104/59 (74) 95 Room Air Laboratory Data Labs 24H Laboratory Tests 2 09/07/20 17:41: Immature Granulocyte % (Auto) 1.1, Neutrophils (%) (Auto) 74.8H, Lymphocytes (%) (Auto) 10.2L, Monocytes (%) (Auto) 10.6H, Eosinophils (%) (Auto) 2.8, Basophils (%) (Auto) 0.5, Neutrophils # (Auto) 7.7, Lymphocytes # (Auto) 1.1L, Monocytes # (Auto) 1.1H, Eosinophils # (Auto) 0.3, Basophils # (Auto) 0.1, Nucleated Red Blood Cells % (auto) 0.0, Total Bilirubin 1.8H, Direct Bilirubin 0.9H, Aspartate Amino Transf (AST/SGOT) 14, Alanine Aminotransferase (ALT/SGPT) 7L, Alkaline Phosphatase 119H, Total Protein 7.6, Albumin 2.7L, Albumin/Globulin Ratio 0.6, Lipase 13L 09/07/20 17:56: POC Glucose (Misc Panel) 98, POC Sodium (Misc Panel) 133L, POC Potassium (Misc Panel) 4.1, POC Chloride (Misc Panel) 95L, POC Total CO2 (Misc Panel) 33.0H, POC Blood Urea Nitrogen (Misc Panel 15, POC Ionized Calcium (Misc Panel) 4.5, POC Creatinine (Misc Panel) 0.8, POC Hematocrit (Misc Panel) 35.0L 09/07/20 18:40: CBC/BMP Laboratory Tests 09/07/20 17:41 Home Medications Scheduled Baclofen (Baclofen) 10 Mg Tablet, 5 MG PO TID Docusate Sodium (Colace) 100 Mg Capsule, 100 MG PO BID Gabapentin (Neurontin) 100 Mg Capsule, 100 MG PO TID Levothyroxine Sodium (Levo-T) 25 Mcg Tablet, 25 MCG PO DAILY Metoprolol Succinate (Metoprolol Succinate) 25 Mg Tab.er.24h, 25 MG PO DAILY Polyethylene Glycol 3350 (Polyethylene Glycol 3350) 510 Gm Powder, 17 GRAM PO DAILY for constipation Potassium Chloride (Potassium Chloride) 20 Meq Tab.er.prt, 20 MEQ PO BID Ramelteon (Rozerem) 8 Mg Tablet, 8 MG PO QHS Rivaroxaban (Xarelto) 20 Mg Tablet, 20 MG PO QHS Sertraline Hcl (Zoloft) 50 Mg Tablet, 50 MG PO DAILY Sodium Phosphate,Ashley-Dibasic (Fleet Enema) 133 Ml Enema, 1 DOSE WI ONCE Torsemide (Torsemide) 20 Mg Tablet, 40 MG PO DAILY Scheduled PRN Simethicone (Simethicone) 125 Mg Tab.chew, 125 MG PO Q6H PRN for GAS PAIN Miscellaneous Medications [med rec comment] PT.SIGNIICANT OTHER STATES PT. HAS NOT HAD MEDS IN DAYS Allergies Coded Allergies: No Known Allergies (Verified , 07/12/07) A-FIB/CHADSVASC A-FIB History Current/History of A-Fib/PAF?: Yes Current PO Anticoag Therapy: Yes MITESH MALDONADO MD Sep 07, 2020 19:53
[2020-09-07] MEDS ORDERED: med rec comment (19:54)
[2020-09-07 20:08] LABS: RSV AMPLIFICATION NEGATIVE (NEGATIVE)
[2020-09-07] MEDS ORDERED: GLYCERIN ADULT SUPP PR ONE (20:10)
[2020-09-07] MEDS ORDERED: MAGNESIUM CITRATE 300 ML BTL PO ONE (20:35)
--- NOTE | 2020-09-07 21:23 | REPVR ---
PROCEDURE INFORMATION: Exam: US Abdomen, Limited; Right Upper Quadrant Exam date and time: 09/07/2020 9:16 PM Age: 65 years old Clinical indication: Abnormal findings; Abnormal lab test; Other: Hyperbilirubinemia; Prior surgery; Surgery date: 6+ months; Surgery type: S/P cholecystectomy TECHNIQUE: Imaging protocol: US abdomen. Real time ultrasound with image documentation. Limited exam focused on the right upper quadrant. COMPARISON: LIVER US 06/10/2020 10:27 PM FINDINGS: Liver: Normal. No masses. Gallbladder: There has been a cholecystectomy. Common bile duct: The common bile duct measures 5 mm. No mass or choledocholithiasis. Pancreas: Pancreas suboptimally visualized due to overlying bowel gas. Right kidney: Right kidney measures 10.6 x 4.6 x 5.2 cm. IMPRESSION: 1. There has been a cholecystectomy. 2. Suboptimal visualization of the pancreas. 3. Otherwise unremarkable. Electronically signed by: David Cabral On 09/07/2020 21:22:57 PM
[2020-09-07 23:01] VITALS: BP 128/72
[2020-09-07] MEDS: POTASSIUM CHLORIDE 10 MEQ SR TABLET PO SCH (23:25)
[2020-09-07] MEDS: RIVAROXABAN 20 MG TAB (XARELTO) PO SCH (23:25)
[2020-09-07] MEDS: DOCUSATE SODIUM 100MG CAPSULE PO SCH (23:25)
[2020-09-07] MEDS: GABAPENTIN 100 MG CAP PO SCH (23:25)
[2020-09-07] MEDS: RAMELTEON 8 MG TAB (ROZEREM) PO SCH (23:26)
[2020-09-08] MEDS: BACLOFEN 5MG PER 1/2 TABLET PO SCH ×4 (00:48→22:46)
[2020-09-08] MEDS: FLEET OIL RETENTION ENEMA PR SCH ×2 (02:47→11:36)
[2020-09-08] MEDS: LEVOTHYROXINE 25MCG TABLET (0.025MG) PO SCH (05:24)
[2020-09-08 06:00] VITALS: BP 119/72
[2020-09-08 06:41] LABS: BASO % 0.3 % (0.0-1.0); EOS # 0.5 10^3/uL (0.0-0.5); EOS % 4.6 % (0.0-3.0); HEMATOCRIT 33.4 % (42.0-52.0); HEMOGLOBIN 10.6 g/dl (13.5-17.5); LYMPH # 1.2 10^3/uL (1.5-5.0); LYMPH % 11.7 % (24.0-44.0); MEAN CORPUSCULAR HEMOGLOBIN 30.3 pg (27.0-33.0); MEAN CORPUSCULAR HGB CONC 31.7 g/dl (32.0-36.5); MEAN CORPUSCULAR VOLUME 95.4 fl (80.0-96.0); MONO % 10.3 % (2.0-8.0); NEUTROPHILS # 7.2 10^3/uL (1.5-8.5); NEUTROPHILS % 72.3 % (36.0-66.0); PLATELET COUNT, AUTOMATED 127 10^3/uL (150-450)
[2020-09-08 06:42] LABS: ALBUMIN 2.6 GM/DL (3.2-5.2); ALT/SGPT 8 U/L (12-78); BILIRUBIN,TOTAL 1.7 MG/DL (0.2-1.0); BLOOD UREA NITROGEN 12 MG/DL (7-18); CALCIUM LEVEL 8.5 MG/DL (8.8-10.2); CARBON DIOXIDE LEVEL 31 MEQ/L (21-32); CHLORIDE LEVEL 99 MEQ/L (98-107); CREATININE FOR GFR 0.74 MG/DL (0.70-1.30); GLOMERULAR FILTRATION RATE > 60.0 (>49); GLUCOSE, FASTING 102 MG/DL (70-100); MAGNESIUM LEVEL 2.3 MG/DL (1.8-2.4); SODIUM LEVEL 134 MEQ/L (136-145); TOTAL PROTEIN 7.1 GM/DL (6.4-8.2)
--- NOTE | 2020-09-08 10:34 | REP ---
INDICATION: pain, numbess L leg COMPARISON: None. TECHNIQUE: AP and bilateral oblique views of the lumbar spine. FINDINGS: Alignment is maintained in the frontal projection and there is no evidence for obvious acute fracture/compression injury. Mild/moderate degenerative changes are suggested including endplate sclerosis with disc space narrowing at L4-5 and L5-S1 along with osteophytosis. Further evaluation is limited as lateral radiographs could not be obtained due to body habitus and associated technical factors. There is a presumed right nephrostomy with continued ureteral stent to the bladder. The bowel gas pattern suggests mild nonspecific distention/ileus. IMPRESSION: Limited lumbar spine images as described above. <Electronically signed by Drew Rosario > 09/08/20 [id number]
--- NOTE | 2020-09-08 10:37 | REP ---
INDICATION: pain, numbess L leg COMPARISON: None. TECHNIQUE: AP and cross-table lateral views. FINDINGS: Moderate tricompartmental osteoarthritic degenerative changes including medial joint space narrowing, elements of cortical irregularity and periarticular sclerosis. No acute fracture or dislocation. IMPRESSION: Moderate arthritic changes. <Electronically signed by Drew Rosario > 09/08/20 1039
--- NOTE | 2020-09-08 10:38 | REP ---
INDICATION: pain, numbess L leg COMPARISON: None. TECHNIQUE: Single AP view of the pelvis. FINDINGS: Marked degenerative changes to the right hip including complete joint space obliteration with subtle flattening along the superior joint line with subchondral sclerosis and small cystic changes as well as marginal osteophytosis. Evidence for prior left hip replacement with elements of heterotopic ossification. No acute fracture or dislocation. IMPRESSION: Degenerative changes. <Electronically signed by Drew Rosario > 09/08/20 1039
[2020-09-08] MEDS: DOCUSATE SODIUM 100MG CAPSULE PO SCH ×2 (10:39→22:46)
[2020-09-08] MEDS: TORSEMIDE 20 MG TAB PO SCH (10:39)
[2020-09-08] MEDS: GABAPENTIN 100 MG CAP PO SCH ×3 (10:40→22:46)
[2020-09-08] MEDS: SERTRALINE HCL 50 MG TAB PO SCH (10:40)
[2020-09-08] MEDS: POTASSIUM CHLORIDE 10 MEQ SR TABLET PO SCH ×2 (10:40→22:46)
--- NOTE | 2020-09-08 10:41 | REP ---
INDICATION: fecal impaction, constipation, ileus COMPARISON: None. TECHNIQUE: Supine view of the abdomen and pelvis. FINDINGS: Bowel gas pattern demonstrates distended air-filled small bowel and relatively nonspecific appearance to the large bowel although fecal stasis and possible rectal impaction is suggested. IMPRESSION: Cannot exclude small bowel obstruction along with ileus and fecal impaction at the rectum. <Electronically signed by Drew Rosario > 09/08/20 1037
[2020-09-08] MEDS: METOPROLOL SUCC *XL* 25MG TAB (TopROL *XL*) PO SCH (10:42)
--- NOTE | 2020-09-08 12:43 | CR ---
CONSULTATION DATE: 09/07/2020 REASON FOR CONSULTATION: Constipation and abdominal pain. HISTORY OF PRESENT ILLNESS: The patient is a 65-year-old male with a history of large incisional ventral hernia and multiple episodes of small-bowel obstruction who presents with a couple days worth of increasing abdominal pain and has not had a bowel movement in about 7 days. He is on a laxative regimen at home already due to his known large ventral hernia. However even with those laxatives, he has been unable to have a bowel movement. CT in the Emergency Room does show dilated loops of small bowel as well as constipation with a large amount of stool throughout the entire colon. He was admitted to the Hospitalist Service and I was asked to evaluate. I had them start him on enemas and laxatives overnight. He has had a couple small bowel movements so far but nothing significant to this point. He is tolerating a liquid diet. He denies any nausea or vomiting. No fevers or chills. His abdominal is distended but nontender. He has no other complaints currently. PAST MEDICAL HISTORY: The patient's past medical history is significant for: 1. Paroxysmal atrial fibrillation, on Xarelto. 2. Depression. 3. Obesity. 4. Peripheral vascular disease. 5. Insomnia. PAST SURGICAL HISTORY: The patient's past surgical history is significant for: 1. Nephrostomy tube placement. 2. Left hip. 3. Ventral hernia repair. 4. Cholecystectomy. 5. Appendectomy. FAMILY HISTORY: Noncontributory. SOCIAL HISTORY: Denies drug or alcohol abuse. ALLERGIES: None. HOME MEDICATIONS: Please see Med Rec. REVIEW OF SYSTEMS: Pertinent positives and negatives as stated in the HPI. PHYSICAL EXAMINATION: GENERAL APPEARANCE: Alert and oriented x3, in no acute distress. VITAL SIGNS: Temperature 98.6, pulse 78, respirations 17, blood pressure 119/72, pulse oximetry 98% on room air. HEENT: Pupils are equal, round and reactive to light and accommodation. HEART: S1, S2, regular rate and rhythm. LUNGS: Clear to auscultation bilaterally. ABDOMEN: Soft, distended diffusely, large ventral hernia with audible air inside the hernia sac with palpation. No rebound or guarding or rigidity. EXTREMITIES: Bilateral lower extremity pitting edema. LABORATORY STUDIES: White count 10, hemoglobin 10.6, platelets 127, creatinine 0.74, total bilirubin 1.7, alkaline phosphatase 124, albumin 2.6. IMAGING: CT abdomen and pelvis show soft tissue edema in the abdominal wall. Large small bowel containing mid ventral supraumbilical abdominal wall hernia with dilated small bowel loops, mild thickening in small bowel wall. No evidence of intraabdominal small bowel obstruction. There are increased feces throughout the colon consistent with constipation, impacted feces in the rectosigmoid with mild thickening of the bowel wall, suggesting stercoral colitis. ASSESSMENT AND PLAN: The patient is a 65-year-old male with severe constipation as well as large ventral incisional hernia. 1. Recommendation at this time is to continue with suppositories and enemas. 2. Once the stool in the colon has softened up and he states to have some bowel movements, then we can start treating from above with laxatives to flush him out the rest of the way. 3. Discussed this plan with the patient. He understands and agrees. 4. We will continue to follow as appropriate.
[2020-09-08 14:00] VITALS: BP 96/53
--- NOTE | 2020-09-08 14:46 | IPNPDOC ---
Text Note Date of Service The patient was seen on 09/08/20. NOTE Subjective: No any acute events overnight. Patient did not have bowel movement yet Objective: GENERAL APPEARANCE: NAD HEENT: no scleral icterus, no JVD, EOMI CARDIOVASCULAR: Irregularly irregular LUNGS: CTA ABDOMEN: soft & not tender w palpitation, moderately distended, large ventral hernia, Crowell catheter in place, right nephrostomy in place MUSCULOSKELETAL: no cyanosis, no swelling INTEGUMENT: no generalized pallor NEUROLOGICAL: cranial nerve function from 2-12 intact intact, follows commands, speech not dysarthric Assessment and plan Patient is 65 yo M with a PMXH of afib on xarelto, morbid oebsity, PVD, R nephrolithiasis with hydronephrosis (s/p R nephrostomy on 09/05/20 by IR), as well as large chronic ventral hernia, presented to ER after being constipated for a week. Constipation/fecal impaction Surgical team follows him Continue enemas and suppositories Large ventral hernia Not incarcerated Continue to monitor Nephrolithiasis/Staghorn calculus CT showing moderate dilation of renal pelvis on R, without hydroureter s/p R nephrostomy tube placement by Dr. Ramirez on 09/05/20 Follow-up with urologist in the outpatient settings Hyperbilirubinemia Improved, ultrasound showed normal liver, no common bile duct dilatation Left leg numbness Most likely secondary to radiculopathy Imaging study negative for fractures Paroxysmal atrial fibrillation Heart rate under control Continuing xarelto Normocytic anemia Will check iron panel, B12, folate and stool for occult blood Depression with insomnia continue home ramelteon Morbid obesity BMI 56, complicates care Hypothyroidism Continue Levothyroxine Will check thyroid profile. VS,Fishbone, I+O VS, Fishbone, I+O Laboratory Tests 09/07/20 17:41 09/08/20 05:40 Vital Signs Date Time Temp Pulse Resp B/P (MAP) Pulse Ox O2 Delivery O2 Flow Rate FiO2 09/08/20 10:42 81 118/71 09/08/20 06:00 98.6 17 98 Room Air I&O- Last 24 Hours up to 6 AM 09/08/20 06:00 Intake Total 1510 ml Output Total 475 ml Balance 1035 ml ASHLYN GREER DO September 08, 2020 14:45
[2020-09-08 15:51] LABS: PERCENT SATURATION 12.4 % (19.7-50.0)
[2020-09-08 16:01] LABS: FREE THYROXINE INDEX 1.8 % (1.4-3.8); THYROID STIMULATING HORMONE 8.45 uIU/ML (0.358-3.740); THYROXINE (T4) 4.5 UG/DL (4.5-12.0)
[2020-09-08] MEDS: FLEET ENEMA PR SCH (18:02)
[2020-09-08 22:00] VITALS: BP 104/69
[2020-09-08] MEDS: RAMELTEON 8 MG TAB (ROZEREM) PO SCH (22:45)
[2020-09-08] MEDS: RIVAROXABAN 20 MG TAB (XARELTO) PO SCH (22:46)
[2020-09-09] MEDS: FLEET OIL RETENTION ENEMA PR SCH ×2 (00:29→10:13)
[2020-09-09 05:56] LABS: BASO # 0.1 10^3/uL (0.0-0.2); BASO % 0.5 % (0.0-1.0); EOS # 0.6 10^3/uL (0.0-0.5); EOS % 6.5 % (0.0-3.0); HEMATOCRIT 32.2 % (42.0-52.0); HEMOGLOBIN 10.1 g/dl (13.5-17.5); LYMPH # 1.3 10^3/uL (1.5-5.0); LYMPH % 14.3 % (24.0-44.0); MEAN CORPUSCULAR HEMOGLOBIN 29.8 pg (27.0-33.0); MEAN CORPUSCULAR HGB CONC 31.4 g/dl (32.0-36.5); MONO % 11.2 % (2.0-8.0); NEUTROPHILS # 6.2 10^3/uL (1.5-8.5); NEUTROPHILS % 66.3 % (36.0-66.0); PLATELET COUNT, AUTOMATED 138 10^3/uL (150-450); RED BLOOD COUNT 3.39 10^6/uL (4.30-6.10); WHITE BLOOD COUNT 9.3 10^3/uL (4.0-10.0)
[2020-09-09 06:00] VITALS: BP 101/67
[2020-09-09 06:30] LABS: ALBUMIN 2.4 GM/DL (3.2-5.2); ALT/SGPT 9 U/L (12-78); BILIRUBIN,TOTAL 1.2 MG/DL (0.2-1.0); BLOOD UREA NITROGEN 11 MG/DL (7-18); CALCIUM LEVEL 7.4 MG/DL (8.8-10.2); CARBON DIOXIDE LEVEL 31 MEQ/L (21-32); CHLORIDE LEVEL 101 MEQ/L (98-107); CREATININE FOR GFR 0.74 MG/DL (0.70-1.30); GLOMERULAR FILTRATION RATE > 60.0 (>49); GLUCOSE, FASTING 96 MG/DL (70-100); POTASSIUM SERUM 3.5 MEQ/L (3.5-5.1); SODIUM LEVEL 137 MEQ/L (136-145); TOTAL PROTEIN 7.1 GM/DL (6.4-8.2)
[2020-09-09] MEDS: FLEET ENEMA PR SCH ×3 (06:44→11:53)
[2020-09-09] MEDS: LEVOTHYROXINE 25MCG TABLET (0.025MG) PO SCH (06:57)
--- NOTE | 2020-09-09 08:45 | IPNPDOC ---
Text Note Date of Service The patient was seen on 09/09/20. NOTE No acute events overnight. He is tolerating diet without any nausea or emesis. He is passing flatus, but no BMs yet. VSSAF NAD abd - soft, distended, non tender, no rebound or guarding, large nonreducible ventral hernia labs - below A) 65y/o male with severe constipation and a large ventral hernia P) since he is tolerating the diet, I will attempt PO laxatives today continue with enemas and suppositories monitor labs await return of bowel function Abhijeet Cunningham DO VS,Candice, I+O VS, Candice, I+O Laboratory Tests 09/09/20 05:43 Vital Signs Date Time Temp Pulse Resp B/P (MAP) Pulse Ox O2 Delivery O2 Flow Rate FiO2 09/09/20 06:00 97.6 69 18 101/67 (78) 99 Room Air I&O- Last 24 Hours up to 6 AM0 09/09/20 06:00 Intake Total 1720 ml Output Total 2700 ml Balance -980 ml GIBSON CUNNINGHAM DO September 09, 2020 08:45
[2020-09-09] MEDS: DOCUSATE SODIUM 100MG CAPSULE PO SCH ×2 (10:11→20:25)
[2020-09-09] MEDS: POTASSIUM CHLORIDE 10 MEQ SR TABLET PO SCH ×2 (10:11→20:24)
[2020-09-09] MEDS: GABAPENTIN 100 MG CAP PO SCH ×3 (10:11→20:24)
[2020-09-09] MEDS: TORSEMIDE 20 MG TAB PO SCH (10:12)
[2020-09-09] MEDS: BACLOFEN 5MG PER 1/2 TABLET PO SCH ×3 (10:12→20:24)
[2020-09-09] MEDS: METOPROLOL SUCC *XL* 25MG TAB (TopROL *XL*) PO SCH (10:13)
[2020-09-09] MEDS: SERTRALINE HCL 50 MG TAB PO SCH (10:13)
[2020-09-09] MEDS ORDERED: MAGNESIUM CITRATE 300 ML BTL PO ONE (10:30)
--- NOTE | 2020-09-09 12:28 | IPNPDOC ---
Text Note Date of Service The patient was seen on 09/09/20. NOTE Subjective: No any acute events overnight. Patient did not have bowel movement yet Objective: GENERAL APPEARANCE: NAD HEENT: no scleral icterus, no JVD, EOMI CARDIOVASCULAR: Irregularly irregular LUNGS: CTA ABDOMEN: soft & not tender w palpitation, moderately distended, large ventral hernia, Crowell catheter in place, right nephrostomy in place MUSCULOSKELETAL: no cyanosis, no swelling INTEGUMENT: no generalized pallor NEUROLOGICAL: cranial nerve function from 2-12 intact intact, follows commands, speech not dysarthric Assessment and plan Patient is 65 yo M with a PMXH of afib on xarelto, morbid oebsity, PVD, R nephrolithiasis with hydronephrosis (s/p R nephrostomy on 09/05/20 by IR), as well as large chronic ventral hernia, presented to ER after being constipated for a week. Constipation/fecal impaction Surgical team follows him Continue enemas and suppositories Trial with magnesium citrate Large ventral hernia Not incarcerated Continue to monitor Nephrolithiasis/Staghorn calculus CT showing moderate dilation of renal pelvis on R, without hydroureter s/p R nephrostomy tube placement by Dr. Ramirez on 09/05/20 Follow-up with urologist in the outpatient settings Hyperbilirubinemia Improved, ultrasound showed normal liver, no common bile duct dilatation Left leg numbness Most likely secondary to radiculopathy Imaging study negative for fractures Paroxysmal atrial fibrillation Heart rate under control Continuing xarelto Normocytic anemia Will check iron panel, B12, folate and stool for occult blood Depression with insomnia continue home ramelteon Morbid obesity BMI 56, complicates care Hypothyroidism Continue Levothyroxine TSH elevated to 8. I will increase the dose of levothyroxine VS,Fishbone, I+O VS, Fishbone, I+O Laboratory Tests 09/09/20 05:43 Vital Signs Date Time Temp Pulse Resp B/P (MAP) Pulse Ox O2 Delivery O2 Flow Rate FiO2 09/09/20 10:13 70 102/67 09/09/20 06:00 97.6 18 99 Room Air I&O- Last 24 Hours up to 6 AM 09/09/20 06:00 Intake Total 1720 ml Output Total 2700 ml Balance -980 ml DROZHZHIN,ASHLYN DO September 09, 2020 12:28
[2020-09-09 14:00] VITALS: BP 102/66
[2020-09-09] MEDS: RIVAROXABAN 20 MG TAB (XARELTO) PO SCH (20:24)
[2020-09-09] MEDS: RAMELTEON 8 MG TAB (ROZEREM) PO SCH (20:24)
[2020-09-09 22:00] VITALS: BP 101/64
[2020-09-10] MEDS: ACETAMINOPHEN TAB 650MG DOSE (2X325MG) PO PRN ×3 (05:03→20:12)
[2020-09-10] MEDS: LEVOTHYROXINE 50MCG TABLET (0.05MG) PO SCH (05:36)
[2020-09-10 06:00] VITALS: BP 105/66
[2020-09-10 07:04] LABS: BASO % 0.4 % (0.0-1.0); EOS # 0.4 10^3/uL (0.0-0.5); EOS % 5.6 % (0.0-3.0); HEMATOCRIT 32.5 % (42.0-52.0); HEMOGLOBIN 10.3 g/dl (13.5-17.5); LYMPH % 12.9 % (24.0-44.0); MEAN CORPUSCULAR HEMOGLOBIN 29.9 pg (27.0-33.0); MEAN CORPUSCULAR HGB CONC 31.7 g/dl (32.0-36.5); MEAN CORPUSCULAR VOLUME 94.2 fl (80.0-96.0); NEUTROPHILS # 5.2 10^3/uL (1.5-8.5); NEUTROPHILS % 66.7 % (36.0-66.0); PLATELET COUNT, AUTOMATED 131 10^3/uL (150-450); RED BLOOD COUNT 3.45 10^6/uL (4.30-6.10); WHITE BLOOD COUNT 7.8 10^3/uL (4.0-10.0)
[2020-09-10 07:39] LABS: ALBUMIN 2.4 GM/DL (3.2-5.2); ALT/SGPT 10 U/L (12-78); BILIRUBIN,TOTAL 1.1 MG/DL (0.2-1.0); BLOOD UREA NITROGEN 9 MG/DL (7-18); CALCIUM LEVEL 7.6 MG/DL (8.8-10.2); CARBON DIOXIDE LEVEL 30 MEQ/L (21-32); CHLORIDE LEVEL 101 MEQ/L (98-107); CREATININE FOR GFR 0.64 MG/DL (0.70-1.30); GLOMERULAR FILTRATION RATE > 60.0 (>49); GLUCOSE, FASTING 90 MG/DL (70-100); SODIUM LEVEL 138 MEQ/L (136-145); TOTAL PROTEIN 6.8 GM/DL (6.4-8.2)
--- NOTE | 2020-09-10 08:09 | IPNPDOC ---
Text Note Date of Service The patient was seen on 09/10/20. NOTE No acute events overnight. He is tolerating diet without any nausea or emesis. He is passing flatus, and had large BMs after the Mag citrate yesterday. He feels much better now. VSSAF NAD abd - soft, non distended, non tender, no rebound or guarding, large nonreducible ventral hernia labs - below A) 65y/o male with severe constipation and a large ventral hernia resolved with laxatives P) dc enemas and suppositories give one more bottle of mag citrate to make sure he is flushed out start on miralax once daily for a bowel regimen stable for d/c from surgical standpoint. Abhijeet Cunningham DO VS,Candice, I+O VS, Candice, I+O Laboratory Tests 09/10/20 06:20 09/10/20 06:21 Vital Signs Date Time Temp Pulse Resp B/P (MAP) Pulse Ox O2 Delivery O2 Flow Rate FiO2 09/10/20 06:00 97.3 71 20 105/66 (79) 96 09/09/20 14:00 Room Air I&O- Last 24 Hours up to 6 AM 09/10/20 06:00 Intake Total 2040 ml Output Total 2700 ml Balance -660 ml GIBSON CUNNINGHAM DO September 10, 2020 08:09
[2020-09-10] MEDS ORDERED: POTASSIUM CHLORIDE 10 MEQ SR TABLET PO ONE (08:15)
[2020-09-10] MEDS ORDERED: MAGNESIUM CITRATE 300 ML BTL PO ONE (08:15)
[2020-09-10] MEDS: METOPROLOL SUCC *XL* 25MG TAB (TopROL *XL*) PO SCH (09:00)
[2020-09-10] MEDS: POTASSIUM CHLORIDE 10 MEQ SR TABLET PO SCH ×2 (09:16→20:11)
[2020-09-10] MEDS: DOCUSATE SODIUM 100MG CAPSULE PO SCH ×2 (09:16→20:11)
[2020-09-10] MEDS: BACLOFEN 5MG PER 1/2 TABLET PO SCH ×3 (09:16→20:12)
[2020-09-10] MEDS: SERTRALINE HCL 50 MG TAB PO SCH (09:16)
[2020-09-10] MEDS: GABAPENTIN 100 MG CAP PO SCH ×3 (09:16→20:11)
[2020-09-10] MEDS: TORSEMIDE 20 MG TAB PO SCH (09:16)
[2020-09-10 11:15] LABS: FOLATE 3.6 NG/ML (>5.4)
[2020-09-10 14:00] VITALS: BP 106/68
--- NOTE | 2020-09-10 16:05 | IPNPDOC ---
Text Note Date of Service The patient was seen on 09/10/20. NOTE Subjective: No any acute events overnight. Patient developed few large bowel m ovements Objective: GENERAL APPEARANCE: NAD HEENT: no scleral icterus, no JVD, EOMI CARDIOVASCULAR: Irregularly irregular LUNGS: CTA ABDOMEN: soft & not tender w palpitation, Crowell catheter in place, right nephrostomy in place MUSCULOSKELETAL: no cyanosis, no swelling INTEGUMENT: no generalized pallor NEUROLOGICAL: cranial nerve function from 2-12 intact intact, follows commands, speech not dysarthric Assessment and plan Patient is 65 yo M with a PMXH of afib on xarelto, morbid obesity, PVD, R nephrolithiasis with hydronephrosis (s/p R nephrostomy on 09/05/20 by IR), as well as large chronic ventral hernia, presented to ER after being constipated for a week. Constipation/fecal impaction Surgical team follows him Continue laxatives Large ventral hernia Not incarcerated Continue to monitor Nephrolithiasis/Staghorn calculus CT showing moderate dilation of renal pelvis on R, without hydroureter s/p R nephrostomy tube placement by Dr. Ramirez on 09/05/20 Follow-up with urologist in the outpatient settings Hyperbilirubinemia Improved, ultrasound showed normal liver, no common bile duct dilatation Left leg numbness Most likely secondary to radiculopathy Imaging study negative for fractures Paroxysmal atrial fibrillation Heart rate under control Continuing xarelto Normocytic anemia iron low, B12 wnl , folate low I will start iron supplementation with folate supplementation stool for occult blood pending Depression with insomnia continue home ramelteon Morbid obesity BMI 56, complicates care Hypothyroidism Continue Levothyroxine TSH elevated to 8. I increased the dose of levothyroxine VS,Fishbone, I+O VS, Fishbone, I+O Laboratory Tests 09/10/20 06:20 09/10/20 06:21 Vital Signs Date Time Temp Pulse Resp B/P (MAP) Pulse Ox O2 Delivery O2 Flow Rate FiO2 09/10/20 14:00 98.5 81 19 106/68 (81) 99 Room Air I&O- Last 24 Hours up to 6 AM 09/10/20 05:59 Intake Total 2100 ml Output Total 2450 ml Balance -350 ml ASHLYN GREER DO September 10, 2020 16:05
[2020-09-10] MEDS: NYSTATIN 100,000 UNITS/GM TOPICAL PWD 15 GM TOP PRN (16:32)
[2020-09-10] MEDS: IRON POLYSAC (NIFEREX) 150 MG CAP PO SCH (20:12)
[2020-09-10] MEDS: RAMELTEON 8 MG TAB (ROZEREM) PO SCH (20:12)
[2020-09-10] MEDS: RIVAROXABAN 20 MG TAB (XARELTO) PO SCH (20:12)
[2020-09-10 22:00] VITALS: BP 109/75
[2020-09-11 06:00] VITALS: BP 111/60
[2020-09-11] MEDS: LEVOTHYROXINE 50MCG TABLET (0.05MG) PO SCH (06:17)
[2020-09-11 06:24] LABS: HEMATOCRIT 32.9 % (42.0-52.0); HEMOGLOBIN 10.5 g/dl (13.5-17.5); MEAN CORPUSCULAR HEMOGLOBIN 30.5 pg (27.0-33.0); MEAN CORPUSCULAR HGB CONC 31.9 g/dl (32.0-36.5); MEAN CORPUSCULAR VOLUME 95.6 fl (80.0-96.0); PLATELET COUNT, AUTOMATED 133 10^3/uL (150-450); RED BLOOD COUNT 3.44 10^6/uL (4.30-6.10); WHITE BLOOD COUNT 7.2 10^3/uL (4.0-10.0)
[2020-09-11 06:53] LABS: ALBUMIN 2.5 GM/DL (3.2-5.2); ALT/SGPT 18 U/L (12-78); BILIRUBIN,TOTAL 0.8 MG/DL (0.2-1.0); BLOOD UREA NITROGEN 11 MG/DL (7-18); CALCIUM LEVEL 7.9 MG/DL (8.8-10.2); CARBON DIOXIDE LEVEL 30 MEQ/L (21-32); CHLORIDE LEVEL 100 MEQ/L (98-107); CREATININE FOR GFR 0.73 MG/DL (0.70-1.30); GLOMERULAR FILTRATION RATE > 60.0 (>49); GLUCOSE, FASTING 89 MG/DL (70-100); MAGNESIUM LEVEL 2.2 MG/DL (1.8-2.4); POTASSIUM SERUM 3.4 MEQ/L (3.5-5.1); SODIUM LEVEL 139 MEQ/L (136-145)
[2020-09-11 06:58] LABS: BASOPHILS 2 % (0-1); EOSINOPHILS 7 % (0-3); LYMPHOCYTES 18 % (16-44); MONOCYTES 7 % (0-5); NEUTROPHILS 66 % (28-66); PLATELET ESTIMATE NORMAL (NORMAL)
[2020-09-11] MEDS ORDERED: POTASSIUM CHLORIDE 10 MEQ SR TABLET PO ONE (09:00)
[2020-09-11] MEDS: METOPROLOL SUCC *XL* 25MG TAB (TopROL *XL*) PO SCH (09:00)
[2020-09-11] MEDS: DOCUSATE SODIUM 100MG CAPSULE PO SCH ×2 (09:15→21:00)
[2020-09-11] MEDS: FOLIC ACID 1 MG TAB PO SCH (09:15)
[2020-09-11] MEDS: IRON POLYSAC (NIFEREX) 150 MG CAP PO SCH ×2 (09:15→21:21)
[2020-09-11] MEDS: BACLOFEN 5MG PER 1/2 TABLET PO SCH ×3 (09:15→21:21)
[2020-09-11] MEDS: GABAPENTIN 100 MG CAP PO SCH ×3 (09:16→21:21)
[2020-09-11] MEDS: TORSEMIDE 20 MG TAB PO SCH (09:16)
[2020-09-11] MEDS: ACETAMINOPHEN TAB 650MG DOSE (2X325MG) PO PRN (09:16)
[2020-09-11] MEDS: POTASSIUM CHLORIDE 10 MEQ SR TABLET PO SCH ×2 (09:16→21:22)
[2020-09-11] MEDS: SERTRALINE HCL 50 MG TAB PO SCH (09:16)
[2020-09-11 14:00] VITALS: BP 100/66
--- NOTE | 2020-09-11 15:00 | IPNPDOC ---
Text Note Date of Service The patient was seen on 09/11/20. NOTE Subjective: No any acute events overnight. Patient stated that he had a few la rge bowel movements overnight. Patient complains of left leg numbness. Patient developed gross hematuria Objective: GENERAL APPEARANCE: NAD HEENT: no scleral icterus, no JVD, EOMI CARDIOVASCULAR: Irregularly irregular LUNGS: CTA ABDOMEN: soft & not tender w palpitation, Crowell catheter in place, right nephrostomy in place MUSCULOSKELETAL: no cyanosis, no swelling INTEGUMENT: no generalized pallor NEUROLOGICAL: cranial nerve function from 2-12 intact intact, follows commands, speech not dysarthric, left leg numbness Assessment and plan Patient is 65 yo M with a PMXH of afib on xarelto, morbid obesity, PVD, R nephrolithiasis with hydronephrosis (s/p R nephrostomy on 09/05/20 by IR), as well as large chronic ventral hernia, presented to ER after being constipated for a week. Constipation/fecal impaction Resolved Large ventral hernia Not incarcerated Continue to monitor Hematuria dc xarelto Nephrolithiasis/Staghorn calculus CT showing moderate dilation of renal pelvis on R, without hydroureter s/p R nephrostomy tube placement by Dr. Ramirez on 09/05/[address] Live he will proceed with stone extraction on . Urine culture positive for MRSA. I will start vancomycin IV Hyperbilirubinemia Improved, ultrasound showed normal liver, no common bile duct dilatation Left leg numbness Most likely secondary to radiculopathy Imaging study negative for fractures CT head altered to rule out stroke Paroxysmal atrial fibrillation Heart rate under control Dc xarelto Normocytic anemia iron low, B12 wnl , folate low Continue iron supplementation with folate supplementation stool for occult blood positive. Patient will need follow-up with GI team in the outpatient settings Depression with insomnia continue home ramelteon Morbid obesity BMI 56, complicates care Hypothyroidism Continue Levothyroxine TSH elevated to 8. I increased the dose of levothyroxine VS,Fishbone, I+O VS, Fishbone, I+O Laboratory Tests 09/11/20 05:52 09/11/20 05:53 Vital Signs Date Time Temp Pulse Resp B/P (MAP) Pulse Ox O2 Delivery O2 Flow Rate FiO2 09/11/20 09:00 81 107/67 09/11/20 06:00 97.5 18 97 Room Air I&O- Last 24 Hours up to 6 AM 09/11/20 06:00 Intake Total 1980 ml Output Total 1200 ml Balance 780 ml ASHLYN GREER DO September 11, 2020 15:00
--- NOTE | 2020-09-11 15:12 | REP ---
INDICATION: cva. COMPARISON: Comparison CT study June 27, 2020.. TECHNIQUE: Helical scanning is acquired. 5 mm axial images were reformatted. Coronal MPR images were generated. FINDINGS: Bone window settings demonstrate an intact bony calvarium. There is no evidence of skull fracture or incidental bony calvarial lesion. The visualized paranasal sinuses appear clear. No intraorbital abnormality is seen. On soft tissue window setting images; the lateral, third, and fourth ventricles are normal in size and position. Yang-white differentiation pattern is normal above and below the tentorium. There are is no evidence of intracranial hemorrhage. No mass, edema, infarction, or midline shift is seen. No extra-axial fluid collection is appreciated. Vascular calcification is noted in the distal internal carotid arteries. There is mild generalized volume loss again noted. Patient is edentulous. IMPRESSION: Mild generalized volume loss and vascular calcification again noted. No acute intracranial abnormality.. <Electronically signed by Perez Marie > 09/11/20 0649
[2020-09-11] MEDS ORDERED: VANCOMYCIN HCL 1,000 MG, VIAL MATE ADAPTER 1 EACH in NS 250 ML IV ONE ×2 (16:00→17:00)
[2020-09-11] MEDS: RAMELTEON 8 MG TAB (ROZEREM) PO SCH (21:21)
[2020-09-11] MEDS: oxyBUTYnin 5 MG TAB PO PRN (21:21)
[2020-09-11 22:00] VITALS: BP 118/67
[2020-09-12] MEDS: VANCOMYCIN HCL 1,000 MG, VIAL MATE ADAPTER 1 EACH in NS 250 ML IV SCH ×3 (00:31→18:27)
[2020-09-12] MEDS: ACETAMINOPHEN TAB 650MG DOSE (2X325MG) PO PRN (01:27)
[2020-09-12] MEDS: oxyBUTYnin 5 MG TAB PO PRN ×3 (01:27→20:33)
[2020-09-12 06:00] VITALS: BP 113/55
[2020-09-12] MEDS: LEVOTHYROXINE 50MCG TABLET (0.05MG) PO SCH (06:16)
[2020-09-12 06:38] LABS: BASO % 0.4 % (0.0-1.0); EOS # 0.3 10^3/uL (0.0-0.5); EOS % 2.6 % (0.0-3.0); HEMOGLOBIN 9.9 g/dl (13.5-17.5); LYMPH # 1.1 10^3/uL (1.5-5.0); MEAN CORPUSCULAR HEMOGLOBIN 30.3 pg (27.0-33.0); MEAN CORPUSCULAR HGB CONC 31.9 g/dl (32.0-36.5); MEAN CORPUSCULAR VOLUME 94.8 fl (80.0-96.0); MONO # 1.1 10^3/uL (0.0-0.8); MONO % 10.3 % (2.0-8.0); NEUTROPHILS # 8.4 10^3/uL (1.5-8.5); NEUTROPHILS % 75.3 % (36.0-66.0); PLATELET COUNT, AUTOMATED 146 10^3/uL (150-450); RED BLOOD COUNT 3.27 10^6/uL (4.30-6.10); WHITE BLOOD COUNT 11.1 10^3/uL (4.0-10.0)
[2020-09-12 07:02] LABS: ALBUMIN 2.4 GM/DL (3.2-5.2); ALT/SGPT 10 U/L (12-78); BILIRUBIN,TOTAL 0.7 MG/DL (0.2-1.0); BLOOD UREA NITROGEN 12 MG/DL (7-18); CARBON DIOXIDE LEVEL 28 MEQ/L (21-32); CHLORIDE LEVEL 101 MEQ/L (98-107); CREATININE FOR GFR 0.88 MG/DL (0.70-1.30); GLOMERULAR FILTRATION RATE > 60.0 (>49); GLUCOSE, FASTING 110 MG/DL (70-100); POTASSIUM SERUM 3.4 MEQ/L (3.5-5.1); SODIUM LEVEL 134 MEQ/L (136-145); TOTAL PROTEIN 7.1 GM/DL (6.4-8.2)
[2020-09-12] MEDS ORDERED: POTASSIUM CHLORIDE 10 MEQ SR TABLET PO ONE (08:00)
[2020-09-12] MEDS: FOLIC ACID 1 MG TAB PO SCH (09:34)
[2020-09-12] MEDS: DOCUSATE SODIUM 100MG CAPSULE PO SCH ×2 (09:34→20:33)
[2020-09-12] MEDS: TORSEMIDE 20 MG TAB PO SCH (09:34)
[2020-09-12] MEDS: BACLOFEN 5MG PER 1/2 TABLET PO SCH ×3 (09:34→20:33)
[2020-09-12] MEDS: IRON POLYSAC (NIFEREX) 150 MG CAP PO SCH ×2 (09:34→20:33)
[2020-09-12] MEDS: SERTRALINE HCL 50 MG TAB PO SCH (09:35)
[2020-09-12] MEDS: METOPROLOL SUCC *XL* 25MG TAB (TopROL *XL*) PO SCH (09:35)
[2020-09-12] MEDS: GABAPENTIN 100 MG CAP PO SCH ×3 (09:36→20:33)
--- NOTE | 2020-09-12 10:41 | IPNPDOC ---
Text Note Date of Service The patient was seen on 09/12/20. NOTE Subjective: Patient developed hematuria with blood clots. Irrigation of bladder was initiated. No fever or chills Objective: GENERAL APPEARANCE: NAD HEENT: no scleral icterus, no JVD, EOMI CARDIOVASCULAR: Irregularly irregular LUNGS: CTA ABDOMEN: soft & not tender w palpitation, Crowell catheter in place, right nephrostomy in place MUSCULOSKELETAL: no cyanosis, no swelling INTEGUMENT: no generalized pallor NEUROLOGICAL: cranial nerve function from 2-12 intact intact, follows commands, speech not dysarthric, left leg numbness Assessment and plan Patient is 65 yo M with a PMXH of afib on xarelto, morbid obesity, PVD, R nephrolithiasis with hydronephrosis (s/p R nephrostomy on 09/05/20 by IR), as well as large chronic ventral hernia, presented to ER after being constipated for a week. Constipation/fecal impaction Resolved Large ventral hernia Not incarcerated Continue to monitor Hematuria Continue bladder irrigation Nephrolithiasis/Staghorn calculus CT showing moderate dilation of renal pelvis on R, without hydroureter s/p R nephrostomy tube placement by Dr. Ramirez on 09/05/[address] Live he will proceed with stone extraction on . Urine culture positive for MRSA and Enterococcus faecalis. Continue vancomycin IV Hyperbilirubinemia Improved, ultrasound showed normal liver, no common bile duct dilatation Left leg numbness Most likely secondary to radiculopathy Imaging study negative for fractures CT head negative for stroke Paroxysmal atrial fibrillation Heart rate under control Dc xarelto Normocytic anemia iron low, B12 wnl , folate low Continue iron supplementation with folate supplementation stool for occult blood positive. Patient will need follow-up with GI team in the outpatient settings Depression with insomnia continue home ramelteon Morbid obesity BMI 56, complicates care Hypothyroidism Continue Levothyroxine TSH elevated to 8. I increased the dose of levothyroxine VS,Fishbone, I+O VS, Fishbone, I+O Laboratory Tests 09/12/20 06:08 Vital Signs Date Time Temp Pulse Resp B/P (MAP) Pulse Ox O2 Delivery O2 Flow Rate FiO2 09/12/20 06:00 97.6 73 19 113/55 (74) 96 Room Air I&O- Last 24 Hours up to 6 AM 09/12/20 06:00 Intake Total 2835 ml Output Total 1300 ml Balance 1535 ml ASHLYN GREER DO September 12, 2020 10:41
[2020-09-12] MEDS: POTASSIUM CHLORIDE 10 MEQ SR TABLET PO SCH ×2 (10:58→20:34)
[2020-09-12 14:00] VITALS: BP 100/67
--- NOTE | 2020-09-12 16:15 | SMCUROLCON ---
Urology Consultation General Date of Consultation 09/12/20 Reason For Consultation This patient is seen for Nephrolithiasis. History of Present Illness This is a 65 y/o M w/ a PMX significant for A fib, morbid obesity, a 4cm R staghorn stone s/p nephroureteral stent placement in IR last week, admitted a few days ago for chronic constipation. His constipation has resolved. Since his planned R PCNL was canceled last week due to a UTI, we have discussed doing it on this hospitalization. Of note, he developed gross hematuria yesterday and has been CBI since then. Nursing has manually irrigated his catheter a few times due to it becoming obstructed by clots. Past Medical History Medical History see HPI Surgical Hstory left hip replacement umbilical hernia repair appendectomy cholecystectomy Medications Current Medications Current Medications Medications (Trade) Dose Ordered Sig/Anne Route PRN Reason Start Time Stop Time Status Last Admin Dose Admin Acetaminophen (Tylenol Tab) 650 mg Q4H PRN PO PAIN OR FEVER 09/07/20 19:50 09/12/20 01:27 Al Hydrox/Mg Hydrox/Simethicone (Mylanta) 30 ml DAILY PRN PO DYSPEPSIA 09/07/20 19:50 Baclofen (Lioresal) 5 mg TID PO 09/07/20 21:00 09/12/20 09:34 Docusate Sodium (Colace) 100 mg BID PO 09/07/20 21:00 09/12/20 09:34 Folic Acid (Folic Acid) 1 mg DAILY PO 09/11/20 09:00 09/12/20 09:34 Gabapentin (Neurontin) 100 mg TID PO 09/07/20 21:00 09/12/20 09:36 Home Med (Med Rec Complete!) ASDIRECTED XX 09/07/20 19:55 09/07/20 19:58 DC Iron (Niferex) 150 mg BID PO 09/10/20 21:00 09/12/20 09:34 Levothyroxine Sodium (Synthroid) 25 mcg DAILY@0600 PO 09/08/20 06:00 09/09/20 12:28 DC 09/09/20 06:57 Levothyroxine Sodium (Synthroid) 50 mcg DAILY@0600 PO 09/10/20 06:00 09/12/20 06:16 Magnesium Hydroxide (Milk Of Magnesia) 30 ml DAILY PRN PO CONSTIPATION 09/07/20 19:50 Metoprolol Succinate (TopROL XL) 25 mg DAILY PO 09/08/20 09:00 09/12/20 09:35 Mineral Oil (Fleet Oil Retention Enema) 1 ea BID IA 09/07/20 21:00 09/09/20 15:27 DC 09/09/20 10:13 Nystatin (Mycostatin Powder, Nystop) apply to groins, scrot... BIDP PRN TOP RASH 09/10/20 14:50 09/10/20 16:32 Oxybutynin Chloride (Ditropan) 5 mg TIDP PRN PO BLADDER SPASM 09/11/20 20:50 09/12/20 09:36 Potassium Chloride (Micro-K Extencaps) 20 meq BID PO 09/07/20 21:00 09/12/20 10:58 Ramelteon (Rozerem) 8 mg QHS PO 09/07/20 21:00 09/11/20 21:21 Rivaroxaban (Xarelto) 20 mg QHS PO 09/07/20 21:00 09/11/20 09:10 DC 09/10/20 20:12 Sertraline HCl (Zoloft) 50 mg DAILY PO 09/08/20 09:00 09/12/20 09:35 Sodium Biphosphate/ Sodium Phosphate (Fleet Enema) 1 ea Q6H IA 09/08/20 18:00 09/09/20 15:27 DC 09/09/20 06:44 Torsemide (Demadex) 40 mg DAILY PO 09/08/20 09:00 09/12/20 09:34 Vancomycin HCl 1000 mg/IV Miscellaneous Supplies 1 each/ Sodium Chloride 270 ml @ 270 mls/hr Q8H IV 09/12/20 00:00 09/12/20 09:33 Allergies Allergies: Coded Allergies: No Known Allergies (Verified , 07/12/07) Review of Systems Constitutional: Reports: Malaise; Denies: Fever, Chills, Sweats Pulmonary: Denies: Dyspnea, Cough Cardiovascular: Denies Chest Pain, Denies Palpitations Gastrointestinal: Denies: Nausea, Vomiting Genitourinary: Reports: Hematuria, Retention Psych: Reports: Mood Normal Physical Examination General Exam: Alert, No Acute Distress Chest Exam: Normal air movement Heart Exam: Rate Normal Abdomen Exam: Soft Male Exam 16Fr 3-way catheter in place w/ light red urine draining and CBI on moderate drip Vital Signs/I&O Vital Signs Date Time Temp Pulse Resp B/P (MAP) Pulse Ox O2 Delivery O2 Flow Rate FiO2 09/12/20 14:00 97.7 65 20 100/67 (78) 100 Room Air I&O- Last 24 Hours up to 6 AM 09/12/20 06:00 Intake Total 2835 ml Output Total 1300 ml Balance 1535 ml Laboratory Data 24H Labs Laboratory Tests 2 09/12/20 06:08: Immature Granulocyte % (Auto) 1.4, Neutrophils (%) (Auto) 75.3H, Lymphocytes (%) (Auto) 10.0L, Monocytes (%) (Auto) 10.3H, Eosinophils (%) (Auto) 2.6, Basophils (%) (Auto) 0.4, Neutrophils # (Auto) 8.4, Lymphocytes # (Auto) 1.1L, Monocytes # (Auto) 1.1H, Eosinophils # (Auto) 0.3, Basophils # (Auto) 0.0, Nucleated Red Blood Cells % (auto) 0.0, Anion Gap 5L, Glomerular Filtration Rate > 60.0, Calcium Level 8.0L, Magnesium Level 2.0, Total Bilirubin 0.7, Aspartate Amino Transf (AST/SGOT) 15, Alanine Aminotransferase (ALT/SGPT) 10L, Alkaline Phosphatase 131H, Total Protein 7.1, Albumin 2.4L, Albumin/Globulin Ratio 0.5 09/12/20 15:13: CBC/BMP Laboratory Tests 09/12/20 06:08 Microbiology Microbiology 09/11/20 Blood Culture - Preliminary, Resulted No growth after 24 hours . All specim... 09/11/20 Blood Culture - Preliminary, Resulted No growth after 24 hours . All specim... 09/11/20 Stool Occult Blood (ANATOLIY) - Final, Complete 09/08/20 Bacterial Culture - Final, Complete Staph.aureus Methicillin Resis Enterococcus Faecalis 09/08/20 Urine Culture - Final, Complete Assessment This is a 65 y/o M w/ a 4cm R staghorn stone and gross hematuria, admitted for constipation (which has now resolved). The gross hematuria is likely secondary to the stone or his nephroureteral stent and him being on xarelto. His catheter has since been changed to a 22Fr 3-way catheter and several clots were irrigated out by the patient's nurse. When I went back to see him this afternoon, the catheter was draining very light pink w/ CBI on a mild drip. The patient is currently on vancomycin for E faecalis and MRSA growing in his urine. We will plan to take him to the OR tomorrow for his R PCNL. Plan - continue CBI and titrate drip so that urine is pink or clearer - hold xarelto - continue vancomycin - NPO at midnight - plan for OR tomorrow for R PCNL EKATERINA YANG MD September 12, 2020 16:15
[2020-09-12] MEDS: RAMELTEON 8 MG TAB (ROZEREM) PO SCH (20:33)
[2020-09-12] MEDS: NYSTATIN 100,000 UNITS/GM TOPICAL PWD 15 GM TOP PRN (20:34)
[2020-09-12 22:00] VITALS: BP 92/70
[2020-09-13] VITALS (7 sets, daily range): BP systolic 94–115; BP diastolic 53–69
[2020-09-13] MEDS: VANCOMYCIN HCL 1,000 MG, VIAL MATE ADAPTER 1 EACH in NS 250 ML IV SCH (01:56)
[2020-09-13] MEDS: LEVOTHYROXINE 50MCG TABLET (0.05MG) PO SCH (05:33)
[2020-09-13 06:32] LABS: BASO % 0.5 % (0.0-1.0); EOS # 0.4 10^3/uL (0.0-0.5); EOS % 4.4 % (0.0-3.0); HEMOGLOBIN 9.5 g/dl (13.5-17.5); LYMPH # 1.3 10^3/uL (1.5-5.0); LYMPH % 14.8 % (24.0-44.0); MEAN CORPUSCULAR HGB CONC 31.7 g/dl (32.0-36.5); MEAN CORPUSCULAR VOLUME 94.6 fl (80.0-96.0); MONO % 12.1 % (2.0-8.0); NEUTROPHILS # 5.7 10^3/uL (1.5-8.5); NEUTROPHILS % 66.2 % (36.0-66.0); PLATELET COUNT, AUTOMATED 141 10^3/uL (150-450); RED BLOOD COUNT 3.17 10^6/uL (4.30-6.10); WHITE BLOOD COUNT 8.6 10^3/uL (4.0-10.0)
[2020-09-13 06:54] LABS: ALBUMIN 2.2 GM/DL (3.2-5.2); ALT/SGPT 9 U/L (12-78); BILIRUBIN,TOTAL 0.9 MG/DL (0.2-1.0); BLOOD UREA NITROGEN 13 MG/DL (7-18); CALCIUM LEVEL 7.6 MG/DL (8.8-10.2); CARBON DIOXIDE LEVEL 29 MEQ/L (21-32); CHLORIDE LEVEL 103 MEQ/L (98-107); CREATININE FOR GFR 1.01 MG/DL (0.70-1.30); GLOMERULAR FILTRATION RATE > 60.0 (>49); GLUCOSE, FASTING 84 MG/DL (70-100); MAGNESIUM LEVEL 1.9 MG/DL (1.8-2.4); POTASSIUM SERUM 3.3 MEQ/L (3.5-5.1); SODIUM LEVEL 138 MEQ/L (136-145); TOTAL PROTEIN 7.1 GM/DL (6.4-8.2)
[2020-09-13] MEDS ORDERED: CONRAY-60 60% 50ML VIAL (Q9961) As Ordered ONE (07:21)
[2020-09-13] MEDS ORDERED: POTASSIUM CHLORIDE 10 MEQ SR TABLET PO ONE (08:00)
[2020-09-13] MEDS: IRON POLYSAC (NIFEREX) 150 MG CAP PO SCH ×2 (09:28→20:33)
[2020-09-13] MEDS: DOCUSATE SODIUM 100MG CAPSULE PO SCH ×2 (09:28→20:33)
[2020-09-13] MEDS: GABAPENTIN 100 MG CAP PO SCH ×3 (09:28→20:33)
[2020-09-13] MEDS: FOLIC ACID 1 MG TAB PO SCH (09:28)
[2020-09-13] MEDS: SERTRALINE HCL 50 MG TAB PO SCH (09:28)
[2020-09-13] MEDS: BACLOFEN 5MG PER 1/2 TABLET PO SCH ×3 (09:28→20:33)
[2020-09-13] MEDS: TORSEMIDE 20 MG TAB PO SCH (09:28)
[2020-09-13] MEDS: POTASSIUM CHLORIDE 10 MEQ SR TABLET PO SCH ×2 (09:29→20:33)
[2020-09-13] MEDS: METOPROLOL SUCC *XL* 25MG TAB (TopROL *XL*) PO SCH (09:33)
[2020-09-13] MEDS ORDERED: LACRILUBE (AKWA TEARS) OPHTH OINT 3.5 GM As Ordered ONE (10:04)
[2020-09-13] MEDS ORDERED: propofoL 200 MG/20 ML VIAL As Ordered ONE (10:05)
[2020-09-13] MEDS ORDERED: ROCURONIUM BROMIDE 50 MG/5 ML VIAL As Ordered ONE (10:05)
[2020-09-13] MEDS ORDERED: LIDOCAINE 2% 100MG/5ML SDV (FOR ANES.) As Ordered ONE (10:05)
[2020-09-13] MEDS ORDERED: dexameTHASONE 4 MG/ML 1ML VIAL (J1100 PER 1MG) As Ordered ONE ×2 (10:05→12:18)
[2020-09-13] MEDS ORDERED: fentaNYL 100 MCG/2 ML INJECTION (J3010) As Ordered ONE (10:06)
[2020-09-13] MEDS ORDERED: MIDAZOLAM INJ 2MG/2ML VIAL (J2250 PER 1MG) As Ordered ONE (10:06)
--- NOTE | 2020-09-13 10:54 | IPNPDOC ---
Subjective Review oF Systems Chief Complaint The patient is a 65-year-old male admitted with a reason for visit of Nephrolithiasis. Events since Last Encounter No acute events o/n. Denies pain. Catheter drained well o/n. Objective Physical Examination General Exam: Alert, Cooperative, No Acute Distress Chest Exam: Normal air movement Heart Exam: Positive: Rate Normal ABDOMEN EXAM: Soft Skin Exam: Nl turgor and temperature Neuro Exam: Normal Speech Psych Exam: Mental status NL, Mood NL Other physical findings 22Fr 3-way catheter in place, draining light red urine w/ CBI off Vital Signs/I&O Vital Signs Date Time Temp Pulse Resp B/P (MAP) Pulse Ox O2 Delivery O2 Flow Rate FiO2 09/13/20 09:33 68 99/52 09/13/20 06:00 98.7 18 96 Room Air I&O- Last 24 Hours up to 6 AM 09/13/20 05:59 Intake Total 2695 ml Output Total 5925 ml Balance -3230 ml Laboratory Data Labs 24H Laboratory Tests 2 09/12/20 15:13: Vancomycin Level Trough 25.2*H 09/13/20 05:11: Coronavirus (COVID-19)(PCR) NEGATIVE 09/13/20 06:10: Immature Granulocyte % (Auto) 2.0, Neutrophils (%) (Auto) 66.2H, Lymphocytes (%) (Auto) 14.8L, Monocytes (%) (Auto) 12.1H, Eosinophils (%) (Auto) 4.4H, Basophils (%) (Auto) 0.5, Neutrophils # (Auto) 5.7, Lymphocytes # (Auto) 1.3L, Monocytes # (Auto) 1.0H, Eosinophils # (Auto) 0.4, Basophils # (Auto) 0.0, Nucleated Red Blood Cells % (auto) 0.0, Anion Gap 6L, Glomerular Filtration Rate > 60.0, Calcium Level 7.6L, Magnesium Level 1.9, Total Bilirubin 0.9, Aspartate Amino Transf (AST/SGOT) 15, Alanine Aminotransferase (ALT/SGPT) 9L, Alkaline Phosphatase 130H, Total Protein 7.1, Albumin 2.2L, Albumin/Globulin Ratio 0.4 09/13/20 08:49: Vancomycin Level Trough 26.1*H CBC/BMP Laboratory Tests 09/13/20 06:10 Microbiology Microbiology 09/11/20 Blood Culture - Preliminary, Resulted No growth after 24 hours . All specim... 09/11/20 Blood Culture - Preliminary, Resulted No growth after 24 hours . All specim... 09/11/20 Stool Occult Blood (ANATOLIY) - Final, Complete 09/08/20 Bacterial Culture - Final, Complete Staph.aureus Methicillin Resis Enterococcus Faecalis 09/08/20 Urine Culture - Final, Complete Assessment/Plan Date Seen The patient was seen on 09/13/20. Patient Summary This is a 65 y/o M w/ a 4cm R staghorn stone and gross hematuria, admitted for constipation (which has now resolved). He is going to the OR today for a R percutaneous nephrolithotomy. Plan/VTE VTE Prophylaxis Ordered?: Yes VTE Exclusion Mechanical Proph: N/A:VTE Prophy Ordered Plan/Urinary Catheter Reason for insertion/continuin: Acute obstruct/retention Plan - to OR for right percutaneous nephrolithotomy - will continue vancomycin and add on cefepime periop to cover acinetobacter which grew on urine culture from last week - NPO - may resume normal diet postop - xarelto will need to be held for 10 days postop EKATERINA YANG MD September 13, 2020 10:31
--- NOTE | 2020-09-13 11:17 | IPNPDOC ---
Text Note Date of Service The patient was seen on 09/13/20. NOTE Subjective: Patient continues to have hematuria. No fever or chills Objective: GENERAL APPEARANCE: NAD HEENT: no scleral icterus, no JVD, EOMI CARDIOVASCULAR: Irregularly irregular LUNGS: CTA ABDOMEN: soft & not tender w palpitation, Crowell catheter in place, right nephrostomy in place MUSCULOSKELETAL: no cyanosis, no swelling INTEGUMENT: no generalized pallor NEUROLOGICAL: cranial nerve function from 2-12 intact intact, follows commands, speech not dysarthric, left leg numbness Assessment and plan Patient is 65 yo M with a PMXH of afib on xarelto, morbid obesity, PVD, R nephrolithiasis with hydronephrosis (s/p R nephrostomy on 09/05/20 by IR), as well as large chronic ventral hernia, presented to ER after being constipated for a week. Constipation/fecal impaction Resolved Large ventral hernia Not incarcerated Continue to monitor Hematuria Continue bladder irrigation Nephrolithiasis/Staghorn calculus CT showing moderate dilation of renal pelvis on R, without hydroureter s/p R nephrostomy tube placement by Dr. Ramirez on 09/05/20 Urine culture positive for MRSA and Enterococcus faecalis. Previous culture was positive Acinetobacter, urology team added cefepime. Urology team will proceed with stone extraction today Continue vancomycin IV We will hold xarelto for 10 days after surgery Hyperbilirubinemia Improved, ultrasound showed normal liver, no common bile duct dilatation Left leg numbness Most likely secondary to radiculopathy Imaging study negative for fractures CT head negative for stroke Paroxysmal atrial fibrillation Heart rate under control Dc xarelto due to continuous hematuria. We will hold xarelto for 10 days after surgery Normocytic anemia iron low, B12 wnl , folate low Continue iron supplementation with folate supplementation stool for occult blood positive. Patient will need follow-up with GI team in the outpatient settings Depression with insomnia continue home ramelteon Morbid obesity BMI 56, complicates care Hypothyroidism Continue Levothyroxine TSH elevated to 8. I increased the dose of levothyroxine VS,Fishbone, I+O VS, Fishbone, I+O Laboratory Tests 09/13/20 06:10 Vital Signs Date Time Temp Pulse Resp B/P (MAP) Pulse Ox O2 Delivery O2 Flow Rate FiO2 09/13/20 09:33 68 99/52 09/13/20 06:00 98.7 18 96 Room Air I&O- Last 24 Hours up to 6 AM 09/13/20 06:00 Intake Total 2340 ml Output Total 5925 ml Balance -3585 ml ASHLYN GREER DO September 13, 2020 11:17
[2020-09-13] MEDS: CEFEPIME HCL 1 GM in D5W MINI-BAG PLUS 50 ML IV SCH ×2 (12:00→23:19)
[2020-09-13] MEDS ORDERED: CEFEPIME 1GM VIAL (MAXIPIME) (J0692 PER 500MG) As Ordered ONE (12:00)
[2020-09-13] MEDS ORDERED: SUGAMMADEX SODIUM 500 MG/5 ML VIAL (BRIDION) As Ordered ONE (12:18)
[2020-09-13] MEDS ORDERED: ePHEDrine SULFATE 25 MG/5 ML(5MG/ML) SYRINGE As Ordered ONE (12:19)
[2020-09-13] MEDS ORDERED: ONDANSETRON 4MG/2ML VIAL As Ordered ONE (12:19)
--- NOTE | 2020-09-13 14:02 | REP ---
INDICATION: NEPHROLITHIASIS. COMPARISON: CT study September 07, 2020.. TECHNIQUE: Eight views. 103.2 seconds of fluoroscopy time is reported. FINDINGS: A sequence of 8 last image hold fluoroscopically obtained spot radiographs of the abdomen document percutaneous instrumentation of the upper tracts and ureter and double-pigtail stent placement. There are no visible laterality markers. There appears to be a staghorn calculus visible in the collecting system of the kidney on the initial film which corresponds to the imaging findings in the right kidney on CT study from September 07, 2020. IMPRESSION: Procedural imaging. <Electronically signed by Perez Marie > 09/13/20 [id number]
[2020-09-13] MEDS ORDERED: LR 1,000 ML IV SCH (14:10)
[2020-09-13] MEDS ORDERED: PERCOCET 5MG/325MG TAB PO PRN (14:10)
[2020-09-13] MEDS ORDERED: ONDANSETRON 4MG/2ML VIAL IV PRN (14:10)
[2020-09-13] MEDS ORDERED: METOCLOPRAMIDE INJ 10MG/2ML VIAL (J2765 PER 1) IV PRN (14:10)
[2020-09-13] MEDS ORDERED: fentaNYL 100 MCG/2 ML INJECTION (J3010) IV PRN (14:10)
--- NOTE | 2020-09-13 14:32 | ROOPDOC ---
[facility] Report Of Operation Report of Operation DATE OF PROCEDURE: 09/13/20 PREPROCEDURE DIAGNOSIS: Right kidney stone. POSTPROCEDURE DIAGNOSIS: Right kidney stone. PROCEDURE: Right percutaneous nephrolithotomy, basket extraction of stones, right ureteroscopy, right antegrade nephrostogram with intraoperative interpretation of images, right ureteral stent placement. SURGEON: Dr. Ekaterina Yang REAL ESTATE VALUER: None ANESTHESIA: General. OPERATIVE INDICATIONS: This is a 65 year-old male with a 4cm right staghorn stone. He was brought to the operating room today for the above-listed procedure. DESCRIPTION OF PROCEDURE: The patient was brought to the operating room, and general anesthesia was induced. Prophylactic antibiotics were infused. A 22Fr 3-way catheter was already in place in his bladder. The irrigation port was plugged. The patient was then repositioned in the prone position in preparation for a right-sided percutaneous nephrolithotomy. The patient was then prepped and draped in the usual sterile fashion. At this point, the previously-placed right nephroureteral stent was utilized to advance an Amplatz Super Stiff wire down the ureter and into the bladder. The nephroureteral stent was then removed, leaving the wire in place. Next, a 2-3 cm transverse incision was made adjacent to the wire. A dual-lumen ureteral catheter was then advanced down into the right kidney. The large stone could easily be seen on fluoroscopy. An antegrade nephrostogram was performed and was negative for extravasation. A Motion guidewire was then advanced down the ureter and into the bladder. The dual-lumen ureteral catheter was then removed, leaving both wires in place. The Motion wire was then secured to the drape to serve as a safety wire. Next, over the Super Stiff wire, a balloon dilator was advanced into the right renal pelvis. The balloon was then inflated and left in place for a few seconds. Next, an access sheath was advanced over the balloon and into the right kidney. The balloon was then let down and removed, leaving the access sheath and the wire in place. At this point, a nephroscope was introduced into the right kidney. We were able to identify the large stone. The stone was then fragmented into several pieces and suctioned out using a ShockPulse lithotriptor. Once it appeared that all of the stone had been removed, I examined the kidney more thoroughly with a flexible cystoscope. I advance the cystoscope down into the ureter and no stones were seen inside the ureter. I identified an approximately 1cm sized fragment and this was removed with a basket. After this, it appeared that all of the stone was removed. The cystoscope was then removed. Once this was done, I advanced a #7-Tunisian x 22-32 cm double J ureteral stent down into the right collecting system. The wire was removed and there were adequate curls of the stent in the bladder and the right kidney. At this point, the access sheath was removed, and the Motion wire was utilized to advance a #18-Tunisian [place] tip catheter down into the right collecting system. After the tip was within the renal pelvis, the balloon was inflated with about 2 mL of contrast. The [place] tip catheter was also utilized to shoot an antegrade nephrostogram, and this was negative for extravasation. We then secured the [place] tip catheter to the skin with a #2-0 silk suture. This was then connected to gravity drainage and marked the conclusion of the procedure. The patient was placed back in supine position, awakened from anesthesia, and transported to the recovery room in stable condition. ESTIMATED BLOOD LOSS: approximately 150 mL COMPLICATIONS: None. SPECIMENS: Right kidney stone fragments. PLAN: The patient will return to his room postoperatively. I will likely remove his right nephrostomy catheter tomorrow. His stent will need to be removed in approximately 4 weeks. EKATERINA YANG MD September 13, 2020 14:32
[2020-09-13 16:05] LABS: HEMATOCRIT 30.6 % (42.0-52.0); HEMOGLOBIN 9.5 g/dl (13.5-17.5); MEAN CORPUSCULAR HEMOGLOBIN 29.7 pg (27.0-33.0); MEAN CORPUSCULAR VOLUME 95.6 fl (80.0-96.0); PLATELET COUNT, AUTOMATED 141 10^3/uL (150-450); WHITE BLOOD COUNT 9.2 10^3/uL (4.0-10.0)
[2020-09-13 16:25] LABS: BLOOD UREA NITROGEN 14 MG/DL (7-18); CARBON DIOXIDE LEVEL 28 MEQ/L (21-32); CHLORIDE LEVEL 103 MEQ/L (98-107); CREATININE FOR GFR 1.03 MG/DL (0.70-1.30); GLOMERULAR FILTRATION RATE > 60.0 (>49); GLUCOSE, FASTING 136 MG/DL (70-100); POTASSIUM SERUM 3.2 MEQ/L (3.5-5.1); SODIUM LEVEL 136 MEQ/L (136-145)
[2020-09-13] MEDS: LINEZOLID 600MG TABLET (ZYVOX) PO SCH (20:33)
[2020-09-13] MEDS: RAMELTEON 8 MG TAB (ROZEREM) PO SCH (20:33)
[2020-09-14 01:52] VITALS: O2SAT 95
[2020-09-14] MEDS: LEVOTHYROXINE 50MCG TABLET (0.05MG) PO SCH (05:33)
[2020-09-14 06:00] VITALS: BP 97/55
[2020-09-14 08:28] LABS: BASO % 0.3 % (0.0-1.0); EOS % 0.2 % (0.0-3.0); HEMOGLOBIN 8.6 g/dl (13.5-17.5); LYMPH # 1.2 10^3/uL (1.5-5.0); LYMPH % 11.1 % (24.0-44.0); MEAN CORPUSCULAR HGB CONC 31.9 g/dl (32.0-36.5); MEAN CORPUSCULAR VOLUME 94.1 fl (80.0-96.0); MONO # 0.9 10^3/uL (0.0-0.8); MONO % 8.4 % (2.0-8.0); NEUTROPHILS # 8.3 10^3/uL (1.5-8.5); NEUTROPHILS % 78.2 % (36.0-66.0); PLATELET COUNT, AUTOMATED 138 10^3/uL (150-450); RED BLOOD COUNT 2.87 10^6/uL (4.30-6.10); WHITE BLOOD COUNT 10.6 10^3/uL (4.0-10.0)
[2020-09-14 08:53] LABS: ALT/SGPT 11 U/L (12-78); BILIRUBIN,TOTAL 0.6 MG/DL (0.2-1.0); BLOOD UREA NITROGEN 15 MG/DL (7-18); CALCIUM LEVEL 7.9 MG/DL (8.8-10.2); CARBON DIOXIDE LEVEL 30 MEQ/L (21-32); CHLORIDE LEVEL 99 MEQ/L (98-107); CREATININE FOR GFR 1.05 MG/DL (0.70-1.30); GLOMERULAR FILTRATION RATE > 60.0 (>49); GLUCOSE, FASTING 104 MG/DL (70-100); POTASSIUM SERUM 3.8 MEQ/L (3.5-5.1); SODIUM LEVEL 135 MEQ/L (136-145); TOTAL PROTEIN 6.8 GM/DL (6.4-8.2)
[2020-09-14 08:54] LABS: ALBUMIN 2.4 GM/DL (3.2-5.2); MAGNESIUM LEVEL 1.9 MG/DL (1.8-2.4)
[2020-09-14] MEDS: DOCUSATE SODIUM 100MG CAPSULE PO SCH ×2 (09:33→22:43)
[2020-09-14] MEDS: FOLIC ACID 1 MG TAB PO SCH (09:33)
[2020-09-14] MEDS: GABAPENTIN 100 MG CAP PO SCH ×3 (09:34→22:44)
[2020-09-14] MEDS: POTASSIUM CHLORIDE 10 MEQ SR TABLET PO SCH (09:34)
[2020-09-14] MEDS: LINEZOLID 600MG TABLET (ZYVOX) PO SCH ×2 (09:35→22:44)
[2020-09-14] MEDS: TORSEMIDE 20 MG TAB PO SCH (09:35)
[2020-09-14] MEDS: IRON POLYSAC (NIFEREX) 150 MG CAP PO SCH ×2 (09:35→22:43)
[2020-09-14] MEDS: METOPROLOL SUCC *XL* 25MG TAB (TopROL *XL*) PO SCH (09:36)
--- NOTE | 2020-09-14 09:51 | IPNPDOC ---
Text Note Date of Service The patient was seen on 09/14/20. NOTE Subjective: Patient stated that he feels better today. He continues to have gr oss hematuria. Yesterday urology team extracted right kidney stone. Nephrostomy was removed Objective: GENERAL APPEARANCE: NAD HEENT: no scleral icterus, no JVD, EOMI CARDIOVASCULAR: Irregularly irregular LUNGS: CTA ABDOMEN: soft & not tender w palpitation, Crowell catheter in place, right nephrostomy in place MUSCULOSKELETAL: no cyanosis, no swelling INTEGUMENT: no generalized pallor NEUROLOGICAL: cranial nerve function from 2-12 intact intact, follows commands, speech not dysarthric, left leg numbness Assessment and plan Patient is 65 yo M with a PMXH of afib on xarelto, morbid obesity, PVD, R nephrolithiasis with hydronephrosis (s/p R nephrostomy on 09/05/20 by IR), as well as large chronic ventral hernia, presented to ER after being constipated for a week. Constipation/fecal impaction Resolved Large ventral hernia Not incarcerated Continue to monitor Hematuria Secondary to xarelto and urological procedure yesterday Xarelto will be held for 10 days, restart on September 24 Nephrolithiasis/Staghorn calculus CT showing moderate dilation of renal pelvis on R, without hydroureter s/p R nephrostomy tube placement by Dr. Ramirez on 09/05/20 Urine culture positive for MRSA and Enterococcus faecalis. Previous culture was positive Acinetobacter, urology team added cefepime. Urology team will proceed with stone extraction today Vancomycin was changed to linezolid by mouth We will hold xarelto for 10 days after surgery Hyperbilirubinemia Improved, ultrasound showed normal liver, no common bile duct dilatation Left leg numbness Most likely secondary to radiculopathy Imaging study negative for fractures CT head negative for stroke Paroxysmal atrial fibrillation Heart rate under control Dc xarelto due to continuous hematuria. We will hold xarelto for 10 days after surgery Normocytic anemia iron low, B12 wnl , folate low Continue iron supplementation with folate supplementation stool for occult blood positive. Patient will need follow-up with GI team in the outpatient settings Depression with insomnia continue home ramelteon Morbid obesity BMI 56, complicates care Hypothyroidism Continue Levothyroxine TSH elevated to 8. I increased the dose of levothyroxine VS,Fishbone, I+O VS, Fishbone, I+O Laboratory Tests 09/13/20 15:46 09/14/20 07:51 Vital Signs Date Time Temp Pulse Resp B/P (MAP) Pulse Ox O2 Delivery O2 Flow Rate FiO2 09/14/20 09:36 70 97/60 09/14/20 06:00 97.1 18 97 09/14/20 01:52 Room Air 09/13/20 14:00 10.0 I&O- Last 24 Hours up to 6 AM 09/14/20 06:00 Intake Total 3765 ml Output Total 1700 ml Balance 2065 ml ASHLYN GREER DO September 14, 2020 09:51
[2020-09-14 10:00] VITALS: BP 100/64
--- NOTE | 2020-09-14 11:01 | IPNPDOC ---
Subjective Review oF Systems Chief Complaint The patient is a 65-year-old male admitted with a reason for visit of Nephrolithiasis. Events since Last Encounter No acute events o/n. Patient notes minimal flank pain. No f/c/ns. Objective Physical Examination General Exam: Alert, Cooperative, No Acute Distress ABDOMEN EXAM: Soft Skin Exam: Nl turgor and temperature Neuro Exam: Normal Speech Psych Exam: Mental status NL, Mood NL Other physical findings R nephrostomy catheter and urethral catheter both draining dark pink urine Vital Signs/I&O Vital Signs Date Time Temp Pulse Resp B/P (MAP) Pulse Ox O2 Delivery O2 Flow Rate FiO2 09/14/20 09:36 70 97/60 09/14/20 06:00 97.1 18 97 09/14/20 01:52 Room Air 09/13/20 14:00 10.0 I&O- Last 24 Hours up to 6 AM 09/14/20 06:00 Intake Total 3765 ml Output Total 1700 ml Balance 2065 ml Laboratory Data Labs 24H Laboratory Tests 2 09/13/20 13:28: 09/13/20 15:46: Nucleated Red Blood Cells % (auto) 0.0, Anion Gap 5L, Glomerular Filtration Rate > 60.0, Calcium Level 8.0L 09/14/20 07:51: Nucleated Red Blood Cells % (auto) 0.0, Anion Gap 6L, Glomerular Filtration Rate > 60.0, Calcium Level 7.9L, Immature Granulocyte % (Auto) 1.8, Neutrophils (%) (Auto) 78.2H, Lymphocytes (%) (Auto) 11.1L, Monocytes (%) (Auto) 8.4H, Eosinophils (%) (Auto) 0.2, Basophils (%) (Auto) 0.3, Neutrophils # (Auto) 8.3, Lymphocytes # (Auto) 1.2L, Monocytes # (Auto) 0.9H, Eosinophils # (Auto) 0.0, Basophils # (Auto) 0.0, Magnesium Level 1.9, Total Bilirubin 0.6, Aspartate Amino Transf (AST/SGOT) 18, Alanine Aminotransferase (ALT/SGPT) 11L, Alkaline Phosphatase 136H, Total Protein 6.8, Albumin 2.4L, Albumin/Globulin Ratio 0.5 CBC/BMP Laboratory Tests 09/13/20 15:46 09/14/20 07:51 Microbiology Microbiology 09/11/20 Blood Culture - Preliminary, Resulted No Growth after 48 hours. All Specime... 09/11/20 Blood Culture - Preliminary, Resulted No Growth after 48 hours. All Specime... 09/11/20 Stool Occult Blood (ANATOLIY) - Final, Complete 09/08/20 Bacterial Culture - Final, Complete Staph.aureus Methicillin Resis Enterococcus Faecalis 09/08/20 Urine Culture - Final, Complete Assessment/Plan Date Seen The patient was seen on 09/14/20. Patient Summary This is a 65 y/o M w/ admitted for constipation (which has now resolved) and also w/ a 4cm R staghorn stone and gross hematuria, now POD1 s/p R PCNL. All of his stone was removed during his procedure yesterday. His R nephrostomy catheter was removed this morning. His Hb is 8.6. His hematuria appears to be improving, but he might continue to have some hematuria for a few more days. Plan/VTE VTE Prophylaxis Ordered?: Yes VTE Exclusion Mechanical Proph: N/A:VTE Prophy Ordered Plan/Urinary Catheter Reason for insertion/continuin: Acute obstruct/retention Plan - R nephrostomy catheter removed - patient should keep up good PO hydration as this will help flush out any blood and stone debris from his kidney - patient on linezolid and cefepime for UTI - will continue cefepime through this evening and then stop it - patient has had a chronic catheter in for a few months but I am not certain a voiding trial has been tried - recommend doing a voiding trial prior to discharging the patient from the hospital - I will arrange f/u in my office in 4-6 wks for stent removal EKATERINA YANG MD September 14, 2020 11:01
[2020-09-14] MEDS: CEFEPIME HCL 1 GM in D5W MINI-BAG PLUS 50 ML IV SCH ×2 (11:52→22:44)
[2020-09-14] MEDS: BACLOFEN 5MG PER 1/2 TABLET PO SCH ×3 (11:52→22:45)
[2020-09-14] MEDS: MOM 30ML SUSPENSION UDC PO PRN (11:55)
[2020-09-14 14:00] VITALS: BP 100/64
[2020-09-14 14:16] VITALS: O2SAT 96
[2020-09-14 22:00] VITALS: BP 100/56
[2020-09-14] MEDS: RAMELTEON 8 MG TAB (ROZEREM) PO SCH (22:44)
[2020-09-14] MEDS: NYSTATIN 100,000 UNITS/GM TOPICAL PWD 15 GM TOP PRN (22:47)
[2020-09-15 04:56] VITALS: O2SAT 96
[2020-09-15] MEDS: MOM 30ML SUSPENSION UDC PO PRN (05:59)
[2020-09-15] MEDS: LEVOTHYROXINE 50MCG TABLET (0.05MG) PO SCH (05:59)
[2020-09-15 06:00] VITALS: BP 98/67
[2020-09-15] MEDS: METOPROLOL SUCC *XL* 25MG TAB (TopROL *XL*) PO SCH (09:00)
[2020-09-15] MEDS: TORSEMIDE 20 MG TAB PO SCH (09:00)
[2020-09-15 09:06] LABS: BASO % 0.5 % (0.0-1.0); EOS # 0.3 10^3/uL (0.0-0.5); EOS % 3.6 % (0.0-3.0); HEMATOCRIT 27.4 % (42.0-52.0); HEMOGLOBIN 8.6 g/dl (13.5-17.5); LYMPH # 1.3 10^3/uL (1.5-5.0); LYMPH % 15.3 % (24.0-44.0); MEAN CORPUSCULAR HEMOGLOBIN 30.1 pg (27.0-33.0); MEAN CORPUSCULAR HGB CONC 31.4 g/dl (32.0-36.5); MEAN CORPUSCULAR VOLUME 95.8 fl (80.0-96.0); MONO # 0.9 10^3/uL (0.0-0.8); MONO % 10.1 % (2.0-8.0); NEUTROPHILS # 5.8 10^3/uL (1.5-8.5); NEUTROPHILS % 68.5 % (36.0-66.0); PLATELET COUNT, AUTOMATED 138 10^3/uL (150-450); RED BLOOD COUNT 2.86 10^6/uL (4.30-6.10); WHITE BLOOD COUNT 8.5 10^3/uL (4.0-10.0)
[2020-09-15 09:32] LABS: ALBUMIN 2.6 GM/DL (3.2-5.2); ALT/SGPT 13 U/L (12-78); BILIRUBIN,TOTAL 0.6 MG/DL (0.2-1.0); BLOOD UREA NITROGEN 16 MG/DL (7-18); CARBON DIOXIDE LEVEL 28 MEQ/L (21-32); CHLORIDE LEVEL 99 MEQ/L (98-107); CREATININE FOR GFR 1.08 MG/DL (0.70-1.30); GLOMERULAR FILTRATION RATE > 60.0 (>49); GLUCOSE, FASTING 82 MG/DL (70-100); POTASSIUM SERUM 3.2 MEQ/L (3.5-5.1); SODIUM LEVEL 135 MEQ/L (136-145); TOTAL PROTEIN 7.4 GM/DL (6.4-8.2)
[2020-09-15] MEDS: CEFEPIME HCL 1 GM in D5W MINI-BAG PLUS 50 ML IV SCH (10:30)
[2020-09-15] MEDS: DOCUSATE SODIUM 100MG CAPSULE PO SCH ×2 (10:31→21:00)
[2020-09-15] MEDS: LINEZOLID 600MG TABLET (ZYVOX) PO SCH ×2 (10:31→21:52)
[2020-09-15] MEDS: FOLIC ACID 1 MG TAB PO SCH (10:31)
[2020-09-15] MEDS: POTASSIUM CHLORIDE 10 MEQ SR TABLET PO SCH (10:31)
[2020-09-15] MEDS: GABAPENTIN 100 MG CAP PO SCH ×3 (10:31→21:51)
[2020-09-15] MEDS: IRON POLYSAC (NIFEREX) 150 MG CAP PO SCH ×2 (10:31→21:52)
[2020-09-15] MEDS: BACLOFEN 5MG PER 1/2 TABLET PO SCH ×3 (10:56→21:51)
[2020-09-15] MEDS ORDERED: MAGNESIUM CITRATE 300 ML BTL PO ONE (11:00)
--- NOTE | 2020-09-15 11:31 | IPNPDOC ---
Text Note Date of Service The patient was seen on 09/15/20. NOTE Subjective: Patient stated that he is being constipated for a few days. Hematu megan resolved. No fever or chills Objective: GENERAL APPEARANCE: NAD HEENT: no scleral icterus, no JVD, EOMI CARDIOVASCULAR: Irregularly irregular LUNGS: CTA ABDOMEN: soft & not tender w palpitation, Crowell catheter in place MUSCULOSKELETAL: no cyanosis, no swelling INTEGUMENT: no generalized pallor NEUROLOGICAL: cranial nerve function from 2-12 intact intact, follows commands, speech not dysarthric, left leg numbness Assessment and plan Patient is 65 yo M with a PMXH of afib on xarelto, morbid obesity, PVD, R nephrolithiasis with hydronephrosis (s/p R nephrostomy on 09/05/20 by IR), as well as large chronic ventral hernia, presented to ER after being constipated for a week. Constipation/fecal impaction Repeat trial with magnesium citrate Large ventral hernia Not incarcerated Continue to monitor Hematuria Secondary to xarelto and urological procedure Xarelto will be held for 10 days, restart on September 24 Currently resolved Nephrolithiasis/Staghorn calculus CT showing moderate dilation of renal pelvis on R, without hydroureter s/p R nephrostomy tube placement by Dr. Ramirez on 09/05/20 Urine culture positive for MRSA and Enterococcus faecalis. Previous culture was positive Acinetobacter, urology team added cefepime, stone extraction was done on 09/14/20. Cefepime was discontinued on 09/16/19 per urology team recommendation. Nephrostomy was removed on 09/15/20 Vancomycin was changed to linezolid by mouth We will hold xarelto for 10 days after surgery Hyperbilirubinemia Improved, ultrasound showed normal liver, no common bile duct dilatation Left leg numbness Most likely secondary to radiculopathy Imaging study negative for fractures CT head negative for stroke Paroxysmal atrial fibrillation Heart rate under control Dc xarelto due to continuous hematuria. We will hold xarelto for 10 days after surgery Normocytic anemia iron low, B12 wnl , folate low Continue iron supplementation with folate supplementation stool for occult blood positive. Patient will need follow-up with GI team in the outpatient settings Depression with insomnia continue home ramelteon Morbid obesity BMI 56, complicates care Hypothyroidism Continue Levothyroxine TSH elevated to 8. I increased the dose of levothyroxine VS,Fishbone, I+O VS, Fishbone, I+O Laboratory Tests 09/15/20 08:34 Vital Signs Date Time Temp Pulse Resp B/P (MAP) Pulse Ox O2 Delivery O2 Flow Rate FiO2 09/15/20 09:00 63 85/52 09/15/20 06:00 97.7 18 97 Room Air 09/13/20 14:00 10.0 I&O- Last 24 Hours up to 6 AM 09/15/20 06:00 Intake Total 6380 ml Output Total 2850 ml Balance 3530 ml ASHLYN GREER DO September 15, 2020 11:31
[2020-09-15 14:00] VITALS: O2SAT 99
[2020-09-15 14:30] VITALS: BP 87/57
[2020-09-15] MEDS: NYSTATIN 100,000 UNITS/GM TOPICAL PWD 15 GM TOP PRN (21:52)
[2020-09-15] MEDS: ACETAMINOPHEN TAB 650MG DOSE (2X325MG) PO PRN (21:53)
[2020-09-15] MEDS: RAMELTEON 8 MG TAB (ROZEREM) PO SCH (21:55)
[2020-09-15 22:00] VITALS: BP 110/60
[2020-09-16 00:49] VITALS: BP 108/60
[2020-09-16] MEDS: ACETAMINOPHEN TAB 650MG DOSE (2X325MG) PO PRN ×2 (02:05→20:51)
[2020-09-16 04:05] VITALS: O2SAT 98
[2020-09-16 06:00] VITALS: BP 104/58
[2020-09-16] MEDS: LEVOTHYROXINE 50MCG TABLET (0.05MG) PO SCH (06:23)
[2020-09-16 06:44] LABS: BASO # 0.1 10^3/uL (0.0-0.2); BASO % 0.6 % (0.0-1.0); EOS # 0.3 10^3/uL (0.0-0.5); EOS % 4.2 % (0.0-3.0); HEMATOCRIT 26.9 % (42.0-52.0); HEMOGLOBIN 8.6 g/dl (13.5-17.5); LYMPH # 1.3 10^3/uL (1.5-5.0); LYMPH % 16.2 % (24.0-44.0); MEAN CORPUSCULAR HEMOGLOBIN 30.5 pg (27.0-33.0); MEAN CORPUSCULAR VOLUME 95.4 fl (80.0-96.0); MONO % 12.2 % (2.0-8.0); NEUTROPHILS # 5.2 10^3/uL (1.5-8.5); NEUTROPHILS % 64.8 % (36.0-66.0); PLATELET COUNT, AUTOMATED 132 10^3/uL (150-450); RED BLOOD COUNT 2.82 10^6/uL (4.30-6.10)
[2020-09-16 07:12] LABS: ALBUMIN 2.3 GM/DL (3.2-5.2); ALT/SGPT 13 U/L (12-78); BILIRUBIN,TOTAL 0.6 MG/DL (0.2-1.0); BLOOD UREA NITROGEN 17 MG/DL (7-18); CALCIUM LEVEL 8.1 MG/DL (8.8-10.2); CARBON DIOXIDE LEVEL 27 MEQ/L (21-32); CHLORIDE LEVEL 101 MEQ/L (98-107); CREATININE FOR GFR 1.07 MG/DL (0.70-1.30); GLOMERULAR FILTRATION RATE > 60.0 (>49); GLUCOSE, FASTING 84 MG/DL (70-100); MAGNESIUM LEVEL 2.2 MG/DL (1.8-2.4); POTASSIUM SERUM 3.9 MEQ/L (3.5-5.1); SODIUM LEVEL 134 MEQ/L (136-145); TOTAL PROTEIN 6.7 GM/DL (6.4-8.2)
--- NOTE | 2020-09-16 09:55 | IPNPDOC ---
Text Note Date of Service The patient was seen on 09/16/20. NOTE Subjective: No any acute event overnight. Patient continues to complain of num bness of left foot. No gross hematuria. Constipation resolved Objective: GENERAL APPEARANCE: NAD HEENT: no scleral icterus, no JVD, EOMI CARDIOVASCULAR: Irregularly irregular LUNGS: CTA ABDOMEN: soft & not tender w palpitation, Crowell catheter in place MUSCULOSKELETAL: no cyanosis, no swelling, dorsalis pedis pulsations intact bilaterally INTEGUMENT: no generalized pallor NEUROLOGICAL: cranial nerve function from 2-12 intact intact, follows commands, speech not dysarthric, left leg numbness Assessment and plan Patient is 65 yo M with a PMXH of afib on xarelto, morbid obesity, PVD, R nephrolithiasis with hydronephrosis (s/p R nephrostomy on 09/05/20 by IR), as well as large chronic ventral hernia, presented to ER after being constipated for a week. Constipation/fecal impaction Repeat trial with magnesium citrate Large ventral hernia Not incarcerated Continue to monitor Hematuria Secondary to xarelto and urological procedure Xarelto will be held for 10 days, restart on September 24 Currently resolved Nephrolithiasis/Staghorn calculus CT showing moderate dilation of renal pelvis on R, without hydroureter s/p R nephrostomy tube placement by Dr. Ramirez on 09/05/20 Urine culture positive for MRSA and Enterococcus faecalis. Previous culture was positive Acinetobacter, urology team added cefepime, stone extraction was done on 09/14/20. Cefepime was discontinued on 09/16/19 per urology team recommendation. Nephrostomy was removed on 09/15/20 Vancomycin was changed to linezolid by mouth We will hold xarelto for 10 days after surgery Hyperbilirubinemia Improved, ultrasound showed normal liver, no common bile duct dilatation Left leg numbness Most likely secondary to radiculopathy Imaging study negative for fractures CT head negative for stroke I increased the dose of gabapentin to 200 mg twice a day Paroxysmal atrial fibrillation Heart rate under control Dc xarelto due to continuous hematuria. We will hold xarelto for 10 days after surgery Normocytic anemia iron low, B12 wnl , folate low Continue iron supplementation with folate supplementation stool for occult blood positive. Patient will need follow-up with GI team in the outpatient settings Depression with insomnia continue home ramelteon Morbid obesity BMI 56, complicates care Hypothyroidism Continue Levothyroxine TSH elevated to 8. I increased the dose of levothyroxine VS,Fishbone, I+O VS, Fishbone, I+O Laboratory Tests 09/16/20 06:13 Vital Signs Date Time Temp Pulse Resp B/P (MAP) Pulse Ox O2 Delivery O2 Flow Rate FiO2 09/16/20 06:00 97.5 63 18 104/58 (73) 96 Room Air 09/13/20 14:00 10.0 I&O- Last 24 Hours up to 6 AM 09/16/20 06:00 Intake Total 4350 ml Output Total 410 ml Balance 3940 ml ASHLYN GREER DO September 16, 2020 09:55
[2020-09-16] MEDS: GABAPENTIN 100 MG CAP PO SCH ×2 (10:20→20:48)
[2020-09-16] MEDS: DOCUSATE SODIUM 100MG CAPSULE PO SCH ×2 (10:20→20:55)
[2020-09-16] MEDS: POTASSIUM CHLORIDE 10 MEQ SR TABLET PO SCH (10:21)
[2020-09-16] MEDS: FOLIC ACID 1 MG TAB PO SCH (10:21)
[2020-09-16] MEDS: LINEZOLID 600MG TABLET (ZYVOX) PO SCH ×2 (10:21→20:48)
[2020-09-16] MEDS: BACLOFEN 5MG PER 1/2 TABLET PO SCH ×3 (10:21→20:48)
[2020-09-16] MEDS: IRON POLYSAC (NIFEREX) 150 MG CAP PO SCH ×2 (10:22→20:48)
[2020-09-16] MEDS: METOPROLOL SUCC *XL* 25MG TAB (TopROL *XL*) PO SCH (10:32)
[2020-09-16] MEDS: TORSEMIDE 20 MG TAB PO SCH (10:32)
[2020-09-16 14:00] VITALS: BP 109/71
[2020-09-16] MEDS: RAMELTEON 8 MG TAB (ROZEREM) PO SCH (20:48)
[2020-09-16] MEDS: oxyBUTYnin 5 MG TAB PO PRN (20:52)
[2020-09-16 22:00] VITALS: BP 109/71
[2020-09-16] MEDS: NYSTATIN 100,000 UNITS/GM TOPICAL PWD 15 GM TOP PRN (23:35)
[2020-09-17] MEDS ORDERED: zolPIDEM TARTRATE 5 MG TAB PO ONE (00:30)
[2020-09-17] MEDS: LEVOTHYROXINE 50MCG TABLET (0.05MG) PO SCH (05:40)
[2020-09-17 06:00] VITALS: BP 110/66
[2020-09-17 06:40] LABS: HEMATOCRIT 26.5 % (42.0-52.0); HEMOGLOBIN 8.5 g/dl (13.5-17.5); MEAN CORPUSCULAR HEMOGLOBIN 30.5 pg (27.0-33.0); MEAN CORPUSCULAR HGB CONC 32.1 g/dl (32.0-36.5); PLATELET COUNT, AUTOMATED 142 10^3/uL (150-450); RED BLOOD COUNT 2.79 10^6/uL (4.30-6.10); WHITE BLOOD COUNT 7.8 10^3/uL (4.0-10.0)
[2020-09-17 07:01] LABS: ALBUMIN 2.4 GM/DL (3.2-5.2); ALT/SGPT 11 U/L (12-78); BILIRUBIN,TOTAL 0.6 MG/DL (0.2-1.0); BLOOD UREA NITROGEN 15 MG/DL (7-18); CALCIUM LEVEL 8.2 MG/DL (8.8-10.2); CARBON DIOXIDE LEVEL 25 MEQ/L (21-32); CHLORIDE LEVEL 102 MEQ/L (98-107); CREATININE FOR GFR 0.97 MG/DL (0.70-1.30); GLOMERULAR FILTRATION RATE > 60.0 (>49); GLUCOSE, FASTING 82 MG/DL (70-100); MAGNESIUM LEVEL 2.2 MG/DL (1.8-2.4); POTASSIUM SERUM 3.9 MEQ/L (3.5-5.1); SODIUM LEVEL 133 MEQ/L (136-145); TOTAL PROTEIN 7.2 GM/DL (6.4-8.2)
[2020-09-17 07:37] LABS: EOSINOPHILS 3 % (0-3); LYMPHOCYTES 18 % (16-44); MONOCYTES 6 % (0-5); MYELOCYTES 1 % (0-0); NEUTROPHILS 69 % (28-66); PLATELET ESTIMATE DECREASED (NORMAL)
[2020-09-17 07:38] LABS: ANISOCYTOSIS 1+
[2020-09-17] MEDS: TORSEMIDE 20 MG TAB PO SCH (09:00)
[2020-09-17] MEDS: METOPROLOL SUCC *XL* 25MG TAB (TopROL *XL*) PO SCH (09:00)
[2020-09-17] MEDS: LINEZOLID 600MG TABLET (ZYVOX) PO SCH ×2 (09:33→20:19)
[2020-09-17] MEDS: IRON POLYSAC (NIFEREX) 150 MG CAP PO SCH ×2 (09:33→20:20)
[2020-09-17] MEDS: FOLIC ACID 1 MG TAB PO SCH (09:33)
[2020-09-17] MEDS: DOCUSATE SODIUM 100MG CAPSULE PO SCH ×2 (09:33→20:19)
[2020-09-17] MEDS: GABAPENTIN 100 MG CAP PO SCH ×2 (09:34→20:19)
[2020-09-17] MEDS: POTASSIUM CHLORIDE 10 MEQ SR TABLET PO SCH (09:34)
[2020-09-17] MEDS: BACLOFEN 5MG PER 1/2 TABLET PO SCH ×3 (10:24→20:19)
--- NOTE | 2020-09-17 11:24 | IPNPDOC ---
Text Note Date of Service The patient was seen on 09/17/20. NOTE Subjective: No any acute events overnight. Patient denied fever, chills, nausea, vomiting. He had a bowel movement overnight Objective: GENERAL APPEARANCE: NAD HEENT: no scleral icterus, no JVD, EOMI CARDIOVASCULAR: Irregularly irregular LUNGS: CTA ABDOMEN: soft & not tender w palpitation, Crowell catheter in place MUSCULOSKELETAL: no cyanosis, no swelling, dorsalis pedis pulsations intact bilaterally INTEGUMENT: no generalized pallor NEUROLOGICAL: cranial nerve function from 2-12 intact intact, follows commands, speech not dysarthric, left leg numbness Assessment and plan Patient is 65 yo M with a PMXH of afib on xarelto, morbid obesity, PVD, R nephrolithiasis with hydronephrosis (s/p R nephrostomy on 09/05/20 by IR), as well as large chronic ventral hernia, presented to ER after being constipated for a week. Constipation/fecal impaction Resolved Large ventral hernia Not incarcerated Continue to monitor Hematuria Secondary to xarelto and urological procedure Xarelto will be held for 10 days, restart on September 24 Currently resolved Nephrolithiasis/Staghorn calculus CT showing moderate dilation of renal pelvis on R, without hydroureter s/p R nephrostomy tube placement by Dr. Ramirez on 09/05/20 Urine culture positive for MRSA and Enterococcus faecalis. Previous culture was positive Acinetobacter, urology team added cefepime, stone extraction was done on 09/14/20. Cefepime was discontinued on 09/16/19 per urology team recommendation. Nephrostomy was removed on 09/15/20 Vancomycin was changed to linezolid by mouth We will hold xarelto for 10 days after surgery Voiding trial today. He'll years Hyperbilirubinemia Improved, ultrasound showed normal liver, no common bile duct dilatation Left leg numbness Most likely secondary to radiculopathy Imaging study negative for fractures CT head negative for stroke I increased the dose of gabapentin to 200 mg twice a day Paroxysmal atrial fibrillation Heart rate under control Dc xarelto due to continuous hematuria. We will hold xarelto for 10 days after surgery Normocytic anemia iron low, B12 wnl , folate low Continue iron supplementation with folate supplementation stool for occult blood positive. Patient will need follow-up with GI team in the outpatient settings Depression with insomnia continue home ramelteon Morbid obesity BMI 56, complicates care Hypothyroidism Continue Levothyroxine TSH elevated to 8. I increased the dose of levothyroxine VS,Fishbone, I+O VS, Fishbone, I+O Laboratory Tests 09/17/20 06:06 Vital Signs Date Time Temp Pulse Resp B/P (MAP) Pulse Ox O2 Delivery O2 Flow Rate FiO2 09/17/20 09:00 71 102/60 09/17/20 06:00 97.8 19 98 Room Air 09/13/20 14:00 10.0 I&O- Last 24 Hours up to 6 AM 09/17/20 06:00 Intake Total 3370 ml Output Total 1300 ml Balance 2070 ml ASHLYN GREER DO September 17, 2020 11:24
[2020-09-17 14:00] VITALS: BP 123/74
[2020-09-17] MEDS: RAMELTEON 8 MG TAB (ROZEREM) PO SCH (20:19)
[2020-09-17 22:00] VITALS: BP 119/74
[2020-09-18] VITALS (10 sets, daily range): BP systolic 102–110; BP diastolic 56–67
[2020-09-18] MEDS: LEVOTHYROXINE 50MCG TABLET (0.05MG) PO SCH (05:26)
[2020-09-18 06:33] LABS: BASO % 0.4 % (0.0-1.0); EOS # 0.3 10^3/uL (0.0-0.5); EOS % 3.7 % (0.0-3.0); HEMATOCRIT 25.8 % (42.0-52.0); HEMOGLOBIN 8.1 g/dl (13.5-17.5); LYMPH # 1.2 10^3/uL (1.5-5.0); LYMPH % 13.2 % (24.0-44.0); MEAN CORPUSCULAR HEMOGLOBIN 30.1 pg (27.0-33.0); MEAN CORPUSCULAR HGB CONC 31.4 g/dl (32.0-36.5); MEAN CORPUSCULAR VOLUME 95.9 fl (80.0-96.0); MONO # 0.7 10^3/uL (0.0-0.8); MONO % 7.3 % (2.0-8.0); NEUTROPHILS # 6.8 10^3/uL (1.5-8.5); NEUTROPHILS % 73.9 % (36.0-66.0); PLATELET COUNT, AUTOMATED 147 10^3/uL (150-450); RED BLOOD COUNT 2.69 10^6/uL (4.30-6.10); WHITE BLOOD COUNT 9.3 10^3/uL (4.0-10.0)
[2020-09-18 07:10] LABS: ALBUMIN 2.5 GM/DL (3.2-5.2); ALT/SGPT 10 U/L (12-78); BILIRUBIN,TOTAL 0.8 MG/DL (0.2-1.0); BLOOD UREA NITROGEN 11 MG/DL (7-18); CALCIUM LEVEL 8.4 MG/DL (8.8-10.2); CARBON DIOXIDE LEVEL 26 MEQ/L (21-32); CHLORIDE LEVEL 102 MEQ/L (98-107); CREATININE FOR GFR 0.79 MG/DL (0.70-1.30); GLOMERULAR FILTRATION RATE > 60.0 (>49); GLUCOSE, FASTING 82 MG/DL (70-100); MAGNESIUM LEVEL 2.2 MG/DL (1.8-2.4); SODIUM LEVEL 134 MEQ/L (136-145); TOTAL PROTEIN 6.7 GM/DL (6.4-8.2)
[2020-09-18] MEDS: METOPROLOL SUCC *XL* 25MG TAB (TopROL *XL*) PO SCH ×2 (09:00→09:50)
[2020-09-18] MEDS: LINEZOLID 600MG TABLET (ZYVOX) PO SCH ×2 (09:47→20:03)
[2020-09-18] MEDS: DOCUSATE SODIUM 100MG CAPSULE PO SCH ×2 (09:47→20:03)
[2020-09-18] MEDS: BACLOFEN 5MG PER 1/2 TABLET PO SCH ×3 (09:47→20:03)
[2020-09-18] MEDS: FOLIC ACID 1 MG TAB PO SCH (09:47)
[2020-09-18] MEDS: IRON POLYSAC (NIFEREX) 150 MG CAP PO SCH ×2 (09:47→20:03)
[2020-09-18] MEDS: TORSEMIDE 20 MG TAB PO SCH (09:47)
[2020-09-18] MEDS: GABAPENTIN 100 MG CAP PO SCH ×2 (09:47→20:03)
[2020-09-18] MEDS: POTASSIUM CHLORIDE 10 MEQ SR TABLET PO SCH (09:47)
--- NOTE | 2020-09-18 12:58 | IPNPDOC ---
Text Note Date of Service The patient was seen on 09/18/20. NOTE Subjective: No any acute events overnight. No hematuria, no fever. Patient was able to urinate after Crowell removal. Objective: GENERAL APPEARANCE: NAD HEENT: no scleral icterus, no JVD, EOMI CARDIOVASCULAR: Irregularly irregular LUNGS: CTA ABDOMEN: soft & not tender w palpitation, Crowell catheter in place MUSCULOSKELETAL: no cyanosis, no swelling, dorsalis pedis pulsations intact bilaterally INTEGUMENT: no generalized pallor NEUROLOGICAL: cranial nerve function from 2-12 intact intact, follows commands, speech not dysarthric, left leg numbness Assessment and plan Patient is 65 yo M with a PMXH of afib on xarelto, morbid obesity, PVD, R nephrolithiasis with hydronephrosis (s/p R nephrostomy on 09/05/20 by IR), as well as large chronic ventral hernia, presented to ER after being constipated for a week. Constipation/fecal impaction Resolved Large ventral hernia Not incarcerated Continue to monitor Hematuria Secondary to xarelto and urological procedure Xarelto will be held for 10 days, restart on September 24 Currently resolved Nephrolithiasis/Staghorn calculus CT showing moderate dilation of renal pelvis on R, without hydroureter s/p R nephrostomy tube placement by Dr. Ramirez on 09/05/20 Urine culture positive for MRSA and Enterococcus faecalis. Previous culture was positive Acinetobacter, urology team added cefepime, stone extraction was done on 09/14/20. Cefepime was discontinued on 09/16/19 per urology team recommendation. Nephrostomy was removed on 09/15/20 Vancomycin was changed to linezolid by mouth We will hold xarelto for 10 days after surgery Hyperbilirubinemia Improved, ultrasound showed normal liver, no common bile duct dilatation Left leg numbness Most likely secondary to radiculopathy Imaging study negative for fractures CT head negative for stroke I increased the dose of gabapentin to 200 mg twice a day Paroxysmal atrial fibrillation Heart rate under control Dc xarelto due to continuous hematuria. We will hold xarelto for 10 days after surgery Normocytic anemia iron low, B12 wnl , folate low Continue iron supplementation with folate supplementation stool for occult blood positive. Patient will need follow-up with GI team in the outpatient settings Hemoglobin dropped today to 8.1. We will transfuse 2 units of blood H&H every 6 hours Depression with insomnia continue home medications Morbid obesity BMI 56, complicates care Hypothyroidism Continue Levothyroxine TSH elevated to 8. I increased the dose of levothyroxine VS,Fishbone, I+O VS, Fishbone, I+O Laboratory Tests 09/18/20 05:56 Vital Signs Date Time Temp Pulse Resp B/P (MAP) Pulse Ox O2 Delivery O2 Flow Rate FiO2 09/18/20 09:50 76 115/60 09/18/20 06:00 97.8 18 95 Room Air 09/13/20 14:00 10.0 I&O- Last 24 Hours up to 6 AM 09/18/20 06:00 Intake Total 1845 ml Output Total 400 ml Balance 1445 ml ASHLYN GREER DO September 18, 2020 12:58
[2020-09-18 17:13] LABS: HEMOGLOBIN 9.5 g/dl (13.5-17.5)
[2020-09-18] MEDS: RAMELTEON 8 MG TAB (ROZEREM) PO SCH (20:03)
[2020-09-18 23:16] LABS: HEMATOCRIT 29.6 % (42.0-52.0); HEMOGLOBIN 9.4 g/dl (13.5-17.5)
[2020-09-19] MEDS: LEVOTHYROXINE 50MCG TABLET (0.05MG) PO SCH (05:37)
[2020-09-19 06:00] VITALS: BP 101/59
[2020-09-19 06:34] LABS: BASO # 0.1 10^3/uL (0.0-0.2); BASO % 0.6 % (0.0-1.0); EOS # 0.4 10^3/uL (0.0-0.5); EOS % 4.7 % (0.0-3.0); HEMATOCRIT 30.1 % (42.0-52.0); HEMOGLOBIN 9.4 g/dl (13.5-17.5); LYMPH # 1.3 10^3/uL (1.5-5.0); LYMPH % 14.9 % (24.0-44.0); MEAN CORPUSCULAR HEMOGLOBIN 29.9 pg (27.0-33.0); MEAN CORPUSCULAR HGB CONC 31.2 g/dl (32.0-36.5); MEAN CORPUSCULAR VOLUME 95.9 fl (80.0-96.0); MONO # 0.6 10^3/uL (0.0-0.8); MONO % 7.3 % (2.0-8.0); NEUTROPHILS # 6.1 10^3/uL (1.5-8.5); NEUTROPHILS % 71.6 % (36.0-66.0); PLATELET COUNT, AUTOMATED 144 10^3/uL (150-450); RED BLOOD COUNT 3.14 10^6/uL (4.30-6.10); WHITE BLOOD COUNT 8.5 10^3/uL (4.0-10.0)
[2020-09-19 07:01] LABS: ALBUMIN 2.5 GM/DL (3.2-5.2); ALT/SGPT 10 U/L (12-78); BILIRUBIN,TOTAL 1.1 MG/DL (0.2-1.0); BLOOD UREA NITROGEN 10 MG/DL (7-18); CALCIUM LEVEL 8.3 MG/DL (8.8-10.2); CARBON DIOXIDE LEVEL 25 MEQ/L (21-32); CHLORIDE LEVEL 103 MEQ/L (98-107); CREATININE FOR GFR 0.91 MG/DL (0.70-1.30); GLOMERULAR FILTRATION RATE > 60.0 (>49); GLUCOSE, FASTING 79 MG/DL (70-100); POTASSIUM SERUM 3.5 MEQ/L (3.5-5.1); SODIUM LEVEL 135 MEQ/L (136-145); TOTAL PROTEIN 7.5 GM/DL (6.4-8.2)
[2020-09-19] MEDS: METOPROLOL SUCC *XL* 25MG TAB (TopROL *XL*) PO SCH (09:00)
[2020-09-19] MEDS: FOLIC ACID 1 MG TAB PO SCH (10:38)
[2020-09-19] MEDS: DOCUSATE SODIUM 100MG CAPSULE PO SCH ×2 (10:38→20:36)
[2020-09-19] MEDS: BACLOFEN 5MG PER 1/2 TABLET PO SCH ×3 (10:39→20:37)
[2020-09-19] MEDS: IRON POLYSAC (NIFEREX) 150 MG CAP PO SCH ×2 (10:39→20:36)
[2020-09-19] MEDS: TORSEMIDE 20 MG TAB PO SCH (10:39)
[2020-09-19] MEDS: LINEZOLID 600MG TABLET (ZYVOX) PO SCH ×2 (10:39→20:36)
[2020-09-19] MEDS: POTASSIUM CHLORIDE 10 MEQ SR TABLET PO SCH (10:39)
[2020-09-19] MEDS: GABAPENTIN 100 MG CAP PO SCH ×2 (10:40→20:36)
[2020-09-19 11:28] LABS: HEMATOCRIT 30.2 % (42.0-52.0); HEMOGLOBIN 9.5 g/dl (13.5-17.5)
[2020-09-19 14:00] VITALS: BP 100/58
--- NOTE | 2020-09-19 14:31 | IPNPDOC ---
Text Note Date of Service The patient was seen on 09/19/20. NOTE Subjective: No any acute events overnight. Patient stated that he feels better today Objective: GENERAL APPEARANCE: NAD HEENT: no scleral icterus, no JVD, EOMI CARDIOVASCULAR: Irregularly irregular LUNGS: CTA ABDOMEN: soft & not tender w palpitation, Crowell catheter in place MUSCULOSKELETAL: no cyanosis, no swelling, dorsalis pedis pulsations intact bilaterally INTEGUMENT: no generalized pallor NEUROLOGICAL: cranial nerve function from 2-12 intact intact, follows commands, speech not dysarthric, left leg numbness Assessment and plan Patient is 65 yo M with a PMXH of afib on xarelto, morbid obesity, PVD, R nephrolithiasis with hydronephrosis (s/p R nephrostomy on 09/05/20 by IR), as well as large chronic ventral hernia, presented to ER after being constipated for a week. Constipation/fecal impaction Resolved Large ventral hernia Not incarcerated Continue to monitor Hematuria Secondary to xarelto and urological procedure Xarelto will be held for 10 days, restart on September 24 Currently resolved Nephrolithiasis/Staghorn calculus CT showing moderate dilation of renal pelvis on R, without hydroureter s/p R nephrostomy tube placement by Dr. Ramirez on 09/05/20 Urine culture positive for MRSA and Enterococcus faecalis. Previous culture was positive Acinetobacter, urology team added cefepime, stone extraction was done on 09/14/20. Cefepime was discontinued on 09/16/19 per urology team recommendation. Nephrostomy was removed on 09/15/20 Vancomycin was changed to linezolid by mouth We will hold xarelto for 10 days after surgery Hyperbilirubinemia Improved, ultrasound showed normal liver, no common bile duct dilatation Left leg numbness Most likely secondary to radiculopathy Imaging study negative for fractures CT head negative for stroke I increased the dose of gabapentin to 200 mg twice a day Paroxysmal atrial fibrillation Heart rate under control Dc xarelto due to continuous hematuria. We will hold xarelto for 10 days after surgery Normocytic anemia iron low, B12 wnl , folate low Continue iron supplementation with folate supplementation stool for occult blood positive. Patient will need follow-up with GI team in the outpatient settings Hemoglobin dropped on 09/18/20 to 8.1. Patient received 2 units of blood H&H every 6 hours Hemoglobin of 9.5 today. Depression with insomnia continue home medications Morbid obesity BMI 56, complicates care Hypothyroidism Continue Levothyroxine TSH elevated to 8. I increased the dose of levothyroxine I will transfer patient to [facility] status VSCandice, I+O VSCandice, I+O Laboratory Tests 09/18/20 16:59 09/18/20 23:12 09/19/20 05:55 09/19/20 11:12 Vital Signs Date Time Temp Pulse Resp B/P (MAP) Pulse Ox O2 Delivery O2 Flow Rate FiO2 09/19/20 09:00 70 90/62 09/19/20 06:00 97.7 20 100 Room Air 09/13/20 14:00 10.0 I&O- Last 24 Hours up to 6 AM 09/19/20 06:00 Intake Total 1890 ml Output Total 250 ml Balance 1640 ml ASHLYN GREER DO September 19, 2020 14:31
[2020-09-19] MEDS: NYSTATIN 100,000 UNITS/GM TOPICAL PWD 15 GM TOP SCH ×2 (15:57→20:35)
[2020-09-19 17:15] LABS: HEMATOCRIT 29.6 % (42.0-52.0); HEMOGLOBIN 9.3 g/dl (13.5-17.5)
[2020-09-19] MEDS: RAMELTEON 8 MG TAB (ROZEREM) PO SCH (20:36)
[2020-09-19 22:00] VITALS: BP 95/57
[2020-09-19 23:04] LABS: HEMATOCRIT 29.9 % (42.0-52.0); HEMOGLOBIN 9.4 g/dl (13.5-17.5)
[2020-09-20 05:39] LABS: BASO % 0.4 % (0.0-1.0); EOS # 0.4 10^3/uL (0.0-0.5); EOS % 4.7 % (0.0-3.0); HEMATOCRIT 29.1 % (42.0-52.0); HEMOGLOBIN 9.2 g/dl (13.5-17.5); LYMPH % 13.1 % (24.0-44.0); MEAN CORPUSCULAR HEMOGLOBIN 30.4 pg (27.0-33.0); MEAN CORPUSCULAR HGB CONC 31.6 g/dl (32.0-36.5); MONO # 0.5 10^3/uL (0.0-0.8); MONO % 5.9 % (2.0-8.0); NEUTROPHILS # 5.7 10^3/uL (1.5-8.5); NEUTROPHILS % 75.1 % (36.0-66.0); PLATELET COUNT, AUTOMATED 148 10^3/uL (150-450); RED BLOOD COUNT 3.03 10^6/uL (4.30-6.10); WHITE BLOOD COUNT 7.6 10^3/uL (4.0-10.0)
[2020-09-20] MEDS: LEVOTHYROXINE 50MCG TABLET (0.05MG) PO SCH (05:46)
[2020-09-20 06:00] VITALS: BP 104/62
[2020-09-20 06:06] LABS: ALBUMIN 2.4 GM/DL (3.2-5.2); ALT/SGPT 10 U/L (12-78); BILIRUBIN,TOTAL 0.9 MG/DL (0.2-1.0); BLOOD UREA NITROGEN 12 MG/DL (7-18); CALCIUM LEVEL 7.8 MG/DL (8.8-10.2); CARBON DIOXIDE LEVEL 25 MEQ/L (21-32); CHLORIDE LEVEL 105 MEQ/L (98-107); CREATININE FOR GFR 0.98 MG/DL (0.70-1.30); GLOMERULAR FILTRATION RATE > 60.0 (>49); GLUCOSE, FASTING 90 MG/DL (70-100); MAGNESIUM LEVEL 1.8 MG/DL (1.8-2.4); POTASSIUM SERUM 3.8 MEQ/L (3.5-5.1); SODIUM LEVEL 136 MEQ/L (136-145)
[2020-09-20] MEDS: METOPROLOL SUCC *XL* 25MG TAB (TopROL *XL*) PO SCH (09:00)
[2020-09-20] MEDS: IRON POLYSAC (NIFEREX) 150 MG CAP PO SCH ×2 (09:38→20:38)
[2020-09-20] MEDS: POTASSIUM CHLORIDE 10 MEQ SR TABLET PO SCH (09:39)
[2020-09-20] MEDS: LINEZOLID 600MG TABLET (ZYVOX) PO SCH (09:39)
[2020-09-20] MEDS: FOLIC ACID 1 MG TAB PO SCH (09:39)
[2020-09-20] MEDS: BACLOFEN 5MG PER 1/2 TABLET PO SCH ×3 (09:39→20:38)
[2020-09-20] MEDS: GABAPENTIN 100 MG CAP PO SCH ×2 (09:39→20:37)
[2020-09-20] MEDS: TORSEMIDE 20 MG TAB PO SCH (09:39)
[2020-09-20] MEDS: LACTOBACILLUS ACIDOPHILUS CAP (BACID) PO SCH ×3 (09:39→17:35)
[2020-09-20] MEDS: NYSTATIN 100,000 UNITS/GM TOPICAL PWD 15 GM TOP SCH ×2 (09:40→20:38)
[2020-09-20 11:17] LABS: HEMATOCRIT 30.7 % (42.0-52.0); HEMOGLOBIN 9.6 g/dl (13.5-17.5)
[2020-09-20 14:00] VITALS: BP 97/61
[2020-09-20 20:07] LABS: CA Oxalate Dihy 50 % (.); Ca Ox Monohydrate 40 % (.); Size 7x7 mm (.)
[2020-09-20] MEDS: RAMELTEON 8 MG TAB (ROZEREM) PO SCH (20:38)
[2020-09-20 22:00] VITALS: BP 100/61
[2020-09-21] MEDS: LEVOTHYROXINE 50MCG TABLET (0.05MG) PO SCH (05:20)
[2020-09-21 06:00] VITALS: BP 122/78
[2020-09-21 06:02] LABS: BASO % 0.4 % (0.0-1.0); EOS # 0.3 10^3/uL (0.0-0.5); EOS % 4.7 % (0.0-3.0); HEMATOCRIT 29.6 % (42.0-52.0); HEMOGLOBIN 9.2 g/dl (13.5-17.5); LYMPH % 14.4 % (24.0-44.0); MEAN CORPUSCULAR HEMOGLOBIN 30.1 pg (27.0-33.0); MEAN CORPUSCULAR HGB CONC 31.1 g/dl (32.0-36.5); MEAN CORPUSCULAR VOLUME 96.7 fl (80.0-96.0); MONO # 0.5 10^3/uL (0.0-0.8); MONO % 6.9 % (2.0-8.0); NEUTROPHILS # 5.3 10^3/uL (1.5-8.5); PLATELET COUNT, AUTOMATED 150 10^3/uL (150-450); RED BLOOD COUNT 3.06 10^6/uL (4.30-6.10); WHITE BLOOD COUNT 7.2 10^3/uL (4.0-10.0)
[2020-09-21 06:21] LABS: ALBUMIN 2.5 GM/DL (3.2-5.2); ALT/SGPT 11 U/L (12-78); BLOOD UREA NITROGEN 11 MG/DL (7-18); CALCIUM LEVEL 7.8 MG/DL (8.8-10.2); CARBON DIOXIDE LEVEL 28 MEQ/L (21-32); CHLORIDE LEVEL 104 MEQ/L (98-107); CREATININE FOR GFR 0.96 MG/DL (0.70-1.30); GLOMERULAR FILTRATION RATE > 60.0 (>49); GLUCOSE, FASTING 87 MG/DL (70-100); MAGNESIUM LEVEL 1.8 MG/DL (1.8-2.4); POTASSIUM SERUM 3.3 MEQ/L (3.5-5.1); SODIUM LEVEL 137 MEQ/L (136-145); TOTAL PROTEIN 7.1 GM/DL (6.4-8.2)
[2020-09-21] MEDS: TORSEMIDE 20 MG TAB PO SCH (09:00)
[2020-09-21] MEDS: METOPROLOL SUCC *XL* 25MG TAB (TopROL *XL*) PO SCH (09:00)
[2020-09-21] MEDS: POTASSIUM CHLORIDE 10 MEQ SR TABLET PO SCH (09:55)
[2020-09-21] MEDS: IRON POLYSAC (NIFEREX) 150 MG CAP PO SCH ×2 (09:55→22:49)
[2020-09-21] MEDS: BACLOFEN 5MG PER 1/2 TABLET PO SCH ×3 (09:55→22:49)
[2020-09-21] MEDS: GABAPENTIN 100 MG CAP PO SCH ×2 (09:55→22:49)
[2020-09-21] MEDS: FOLIC ACID 1 MG TAB PO SCH (09:55)
[2020-09-21] MEDS: LACTOBACILLUS ACIDOPHILUS CAP (BACID) PO SCH ×3 (09:55→17:25)
[2020-09-21] MEDS: NYSTATIN 100,000 UNITS/GM TOPICAL PWD 15 GM TOP SCH ×2 (09:55→22:50)
[2020-09-21] MEDS: RAMELTEON 8 MG TAB (ROZEREM) PO SCH (22:49)
[2020-09-21] MEDS: DIMETHICONE 2% OINTMENT(VANICREAM) 70GM TUBE TOP SCH (22:49)
[2020-09-22 06:00] VITALS: BP 101/56
[2020-09-22] MEDS: LEVOTHYROXINE 50MCG TABLET (0.05MG) PO SCH (06:01)
[2020-09-22 06:35] LABS: HEMATOCRIT 28.1 % (42.0-52.0); HEMOGLOBIN 8.9 g/dl (13.5-17.5); MEAN CORPUSCULAR HEMOGLOBIN 30.1 pg (27.0-33.0); MEAN CORPUSCULAR HGB CONC 31.7 g/dl (32.0-36.5); MEAN CORPUSCULAR VOLUME 94.9 fl (80.0-96.0); PLATELET COUNT, AUTOMATED 145 10^3/uL (150-450); RED BLOOD COUNT 2.96 10^6/uL (4.30-6.10); WHITE BLOOD COUNT 6.1 10^3/uL (4.0-10.0)
[2020-09-22 06:59] LABS: ALBUMIN 2.6 GM/DL (3.2-5.2); ALT/SGPT 13 U/L (12-78); BILIRUBIN,TOTAL 0.9 MG/DL (0.2-1.0); BLOOD UREA NITROGEN 13 MG/DL (7-18); CALCIUM LEVEL 8.3 MG/DL (8.8-10.2); CARBON DIOXIDE LEVEL 28 MEQ/L (21-32); CHLORIDE LEVEL 104 MEQ/L (98-107); CREATININE FOR GFR 0.86 MG/DL (0.70-1.30); GLOMERULAR FILTRATION RATE > 60.0 (>49); GLUCOSE, FASTING 87 MG/DL (70-100); MAGNESIUM LEVEL 1.8 MG/DL (1.8-2.4); POTASSIUM SERUM 3.5 MEQ/L (3.5-5.1); SODIUM LEVEL 138 MEQ/L (136-145); TOTAL PROTEIN 7.1 GM/DL (6.4-8.2)
[2020-09-22 07:58] LABS: ATYPICAL LYMPH 2 % (0-5); BASOPHILS 1 % (0-1); EOSINOPHILS 5 % (0-3); LYMPHOCYTES 16 % (16-44); MONOCYTES 6 % (0-5); NEUTROPHILS 70 % (28-66)
[2020-09-22 08:02] LABS: PLATELET ESTIMATE NORMAL (NORMAL)
[2020-09-22] MEDS: TORSEMIDE 20 MG TAB PO SCH (08:51)
[2020-09-22] MEDS: LACTOBACILLUS ACIDOPHILUS CAP (BACID) PO SCH ×3 (08:51→16:48)
[2020-09-22] MEDS: FOLIC ACID 1 MG TAB PO SCH (08:51)
[2020-09-22] MEDS: POTASSIUM CHLORIDE 10 MEQ SR TABLET PO SCH (08:52)
[2020-09-22] MEDS: BACLOFEN 5MG PER 1/2 TABLET PO SCH ×3 (08:52→20:36)
[2020-09-22] MEDS: IRON POLYSAC (NIFEREX) 150 MG CAP PO SCH ×2 (08:53→20:36)
[2020-09-22] MEDS: METOPROLOL SUCC *XL* 12.5MG PER 1/2 TAB (TopROL *XL*) PO SCH (08:53)
[2020-09-22] MEDS: GABAPENTIN 100 MG CAP PO SCH ×2 (08:53→20:36)
[2020-09-22] MEDS: DIMETHICONE 2% OINTMENT(VANICREAM) 70GM TUBE TOP SCH ×2 (08:55→20:32)
[2020-09-22] MEDS: NYSTATIN 100,000 UNITS/GM TOPICAL PWD 15 GM TOP SCH ×2 (08:55→20:32)
[2020-09-22] MEDS: RAMELTEON 8 MG TAB (ROZEREM) PO SCH (20:36)
[2020-09-23 06:00] VITALS: BP 97/54
[2020-09-23] MEDS: LEVOTHYROXINE 50MCG TABLET (0.05MG) PO SCH (06:10)
[2020-09-23] MEDS: TORSEMIDE 20 MG TAB PO SCH (08:41)
[2020-09-23] MEDS: IRON POLYSAC (NIFEREX) 150 MG CAP PO SCH ×2 (08:41→20:07)
[2020-09-23] MEDS: FOLIC ACID 1 MG TAB PO SCH (08:41)
[2020-09-23] MEDS: LACTOBACILLUS ACIDOPHILUS CAP (BACID) PO SCH ×3 (08:41→16:38)
[2020-09-23] MEDS: BACLOFEN 5MG PER 1/2 TABLET PO SCH ×3 (08:41→20:07)
[2020-09-23] MEDS: NYSTATIN 100,000 UNITS/GM TOPICAL PWD 15 GM TOP SCH ×2 (08:42→19:59)
[2020-09-23] MEDS: GABAPENTIN 100 MG CAP PO SCH ×2 (08:42→20:07)
[2020-09-23] MEDS: POTASSIUM CHLORIDE 10 MEQ SR TABLET PO SCH (08:43)
[2020-09-23] MEDS: DIMETHICONE 2% OINTMENT(VANICREAM) 70GM TUBE TOP SCH ×2 (08:43→19:59)
[2020-09-23] MEDS: METOPROLOL SUCC *XL* 12.5MG PER 1/2 TAB (TopROL *XL*) PO SCH (08:44)
[2020-09-23] MEDS: RAMELTEON 8 MG TAB (ROZEREM) PO SCH (20:07)
[2020-09-24] MEDS: LEVOTHYROXINE 50MCG TABLET (0.05MG) PO SCH (06:01)
[2020-09-24 06:29] VITALS: BP 122/80
[2020-09-24] MEDS: GABAPENTIN 100 MG CAP PO SCH ×2 (09:24→20:27)
[2020-09-24] MEDS: BACLOFEN 5MG PER 1/2 TABLET PO SCH ×3 (09:24→20:27)
[2020-09-24] MEDS: LACTOBACILLUS ACIDOPHILUS CAP (BACID) PO SCH (09:24)
[2020-09-24] MEDS: FOLIC ACID 1 MG TAB PO SCH (09:25)
[2020-09-24] MEDS: POTASSIUM CHLORIDE 10 MEQ SR TABLET PO SCH (09:25)
[2020-09-24] MEDS: DIMETHICONE 2% OINTMENT(VANICREAM) 70GM TUBE TOP SCH ×2 (09:26→20:28)
[2020-09-24] MEDS: METOPROLOL SUCC *XL* 12.5MG PER 1/2 TAB (TopROL *XL*) PO SCH (09:26)
[2020-09-24] MEDS: NYSTATIN 100,000 UNITS/GM TOPICAL PWD 15 GM TOP SCH ×2 (09:26→20:27)
[2020-09-24] MEDS: TORSEMIDE 20 MG TAB PO SCH (09:27)
[2020-09-24] MEDS: IRON POLYSAC (NIFEREX) 150 MG CAP PO SCH ×2 (09:28→20:27)
[2020-09-24 13:13] LABS: HEMATOCRIT 28.8 % (42.0-52.0); HEMOGLOBIN 9.3 g/dl (13.5-17.5); MEAN CORPUSCULAR HEMOGLOBIN 31.2 pg (27.0-33.0); MEAN CORPUSCULAR HGB CONC 32.3 g/dl (32.0-36.5); MEAN CORPUSCULAR VOLUME 96.6 fl (80.0-96.0); PLATELET COUNT, AUTOMATED 140 10^3/uL (150-450); RED BLOOD COUNT 2.98 10^6/uL (4.30-6.10); WHITE BLOOD COUNT 6.7 10^3/uL (4.0-10.0)
[2020-09-24 13:25] LABS: INR 1.12; PROTHROMBIN TIME 14.6 SECONDS (12.5-14.3)
[2020-09-24 13:26] LABS: PARTIAL THROMBOPLASTIN TIME 42.4 SECONDS (24.2-38.5)
[2020-09-24 13:42] LABS: BLOOD UREA NITROGEN 11 MG/DL (7-18); CALCIUM LEVEL 7.8 MG/DL (8.8-10.2); CARBON DIOXIDE LEVEL 25 MEQ/L (21-32); CHLORIDE LEVEL 104 MEQ/L (98-107); CREATININE FOR GFR 0.92 MG/DL (0.70-1.30); GLOMERULAR FILTRATION RATE > 60.0 (>49); GLUCOSE, FASTING 92 MG/DL (70-100); POTASSIUM SERUM 3.6 MEQ/L (3.5-5.1); SODIUM LEVEL 137 MEQ/L (136-145)
--- NOTE | 2020-09-24 13:57 | IPNPDOC ---
Text Note Date of Service The patient was seen on 09/24/20. NOTE Hospitalist Progress Note Subjective: In speaking to the patient today, he reports that he is feeling quite well. His only questions and concerns remain regarding the location to where he might do his convalescence. Otherwise, medically speaking, he does not have any complaints at this time, the remainder of his review of systems is negative. Objective: General: Awake, alert, oriented 3. Not in any acute distress. HEENT: Head normocephalic, atraumatic, sclera are nonicteric. Hearing is grossly intact to conversation. Respiratory: Clear to auscultation bilaterally with no wheezes, rales, or rhonchi. Cardiovascular: Regular rate and rhythm, with no rubs, gallops, or murmur. Abdomen: Soft, nontender, obese. Bowel sounds present. Extremities: 2+ pulses in the radial bilaterally. No evidence of clubbing or cyanosis. Assessment/Plan: Nephrolithiasis/staghorn calculus -Status post right sided stone extraction performed 09/14/2020. Completed antibiotics on 09/15/2020, recommendation was to hold Xarelto for 10 days, therefore this will be initiated tonight. Stent is still in the right ureter, recommendation for removal and 4-6 weeks (between 10/15/2020-10/26/2020) as an outpatient in the urologists office (Dr. Josesito Live MD [place], [place]). -Crowell catheter has already been removed Hematuria -resolved Constipation/fecal impaction -resolved Large ventral hernia, not incarcerated -stable Hyperbilirubinemia -Improved, ultrasound showed normal liver, no common bile duct dilatation Left leg numbness -Mostly secondary to radiculopathy. Imaging study was negative for fractures. CT of head negative for stroke. Continue gabapentin. Paroxysmal atrial fibrillation -Heart rate continues to be well controlled -Resume Xarelto today Normocytic anemia -Now Stable -He did receive a transfusion of 2 units on 09/18/2020, H&H since that time is stable -Continue with iron and folate supplementation -During this hospitalization he was found to have stool for occult blood positive. Recommend GI follow-up as an outpatient. Depression with insomnia -Continue ramelteon Morbid obesity, BMI 56 -Complicates care Hypothyroidism -Continue levothyroxine Disposition: The patient was dissatisfied with where he had been living previously. Awaiting placement at a new facility. VS,Fishbone, I+O VS, Fishbone, I+O Laboratory Tests 09/24/20 12:59 Vital Signs Date Time Temp Pulse Resp B/P (MAP) Pulse Ox O2 Delivery O2 Flow Rate FiO2 09/24/20 09:26 87 122/74 09/24/20 06:29 98.1 18 100 Room Air I&O- Last 24 Hours up to 6 AM 09/24/20 06:00 Intake Total 660 ml Output Total 1275 ml Balance -615 ml GIBSON BECKER DO September 24, 2020 13:57
[2020-09-24] MEDS: RIVAROXABAN 20 MG TAB (XARELTO) PO SCH (17:20)
[2020-09-24] MEDS: RAMELTEON 8 MG TAB (ROZEREM) PO SCH (20:27)
[2020-09-25] MEDS: LEVOTHYROXINE 50MCG TABLET (0.05MG) PO SCH (05:40)
[2020-09-25 06:00] VITALS: BP 91/60
[2020-09-25] MEDS: METOPROLOL SUCC *XL* 12.5MG PER 1/2 TAB (TopROL *XL*) PO SCH (08:43)
[2020-09-25] MEDS: NYSTATIN 100,000 UNITS/GM TOPICAL PWD 15 GM TOP SCH ×2 (08:43→20:18)
[2020-09-25] MEDS: GABAPENTIN 100 MG CAP PO SCH ×2 (08:43→20:18)
[2020-09-25] MEDS: IRON POLYSAC (NIFEREX) 150 MG CAP PO SCH ×2 (08:43→20:18)
[2020-09-25] MEDS: FOLIC ACID 1 MG TAB PO SCH (08:43)
[2020-09-25] MEDS: BACLOFEN 5MG PER 1/2 TABLET PO SCH ×3 (08:43→20:17)
[2020-09-25] MEDS: POTASSIUM CHLORIDE 10 MEQ SR TABLET PO SCH (08:44)
[2020-09-25] MEDS: TORSEMIDE 20 MG TAB PO SCH (08:44)
[2020-09-25] MEDS: DIMETHICONE 2% OINTMENT(VANICREAM) 70GM TUBE TOP SCH ×2 (08:44→20:18)
[2020-09-25] MEDS: RIVAROXABAN 20 MG TAB (XARELTO) PO SCH (17:42)
[2020-09-25] MEDS: RAMELTEON 8 MG TAB (ROZEREM) PO SCH (20:18)
[2020-09-26] MEDS: LEVOTHYROXINE 50MCG TABLET (0.05MG) PO SCH (05:37)
[2020-09-26 06:00] VITALS: BP 102/58
[2020-09-26] MEDS: FOLIC ACID 1 MG TAB PO SCH (08:59)
[2020-09-26] MEDS: GABAPENTIN 100 MG CAP PO SCH ×2 (08:59→20:08)
[2020-09-26] MEDS: IRON POLYSAC (NIFEREX) 150 MG CAP PO SCH ×2 (08:59→20:08)
[2020-09-26] MEDS: BACLOFEN 5MG PER 1/2 TABLET PO SCH ×3 (08:59→20:08)
[2020-09-26] MEDS: POTASSIUM CHLORIDE 10 MEQ SR TABLET PO SCH (09:00)
[2020-09-26] MEDS: NYSTATIN 100,000 UNITS/GM TOPICAL PWD 15 GM TOP SCH ×2 (09:00→20:09)
[2020-09-26] MEDS: DIMETHICONE 2% OINTMENT(VANICREAM) 70GM TUBE TOP SCH ×2 (09:00→20:09)
[2020-09-26] MEDS: TORSEMIDE 20 MG TAB PO SCH (09:01)
[2020-09-26] MEDS: METOPROLOL SUCC *XL* 12.5MG PER 1/2 TAB (TopROL *XL*) PO SCH (09:01)
[2020-09-26] MEDS: RIVAROXABAN 20 MG TAB (XARELTO) PO SCH (17:34)
[2020-09-26] MEDS: RAMELTEON 8 MG TAB (ROZEREM) PO SCH (20:08)
[2020-09-27 06:00] VITALS: BP 100/63
[2020-09-27] MEDS: LEVOTHYROXINE 50MCG TABLET (0.05MG) PO SCH (06:14)
[2020-09-27] MEDS: IRON POLYSAC (NIFEREX) 150 MG CAP PO SCH ×2 (07:57→20:14)
[2020-09-27] MEDS: POTASSIUM CHLORIDE 10 MEQ SR TABLET PO SCH (07:57)
[2020-09-27] MEDS: FOLIC ACID 1 MG TAB PO SCH (07:57)
[2020-09-27] MEDS: GABAPENTIN 100 MG CAP PO SCH ×2 (07:58→20:13)
[2020-09-27] MEDS: BACLOFEN 5MG PER 1/2 TABLET PO SCH ×2 (07:58→20:14)
[2020-09-27 08:01] VITALS: BP 95/59
[2020-09-27] MEDS: METOPROLOL SUCC *XL* 12.5MG PER 1/2 TAB (TopROL *XL*) PO SCH (08:01)
[2020-09-27] MEDS: DIMETHICONE 2% OINTMENT(VANICREAM) 70GM TUBE TOP SCH ×2 (08:01→20:15)
[2020-09-27] MEDS: NYSTATIN 100,000 UNITS/GM TOPICAL PWD 15 GM TOP SCH ×2 (08:01→20:14)
[2020-09-27] MEDS: TORSEMIDE 20 MG TAB PO SCH (08:02)
[2020-09-27] MEDS ORDERED: TORSEMIDE 10 MG TABLET PO SCH (09:00)
[2020-09-27 09:14] LABS: HEMATOCRIT 25.8 % (42.0-52.0); HEMOGLOBIN 8.3 g/dl (13.5-17.5); MEAN CORPUSCULAR HEMOGLOBIN 30.7 pg (27.0-33.0); MEAN CORPUSCULAR HGB CONC 32.2 g/dl (32.0-36.5); MEAN CORPUSCULAR VOLUME 95.6 fl (80.0-96.0); PLATELET COUNT, AUTOMATED 115 10^3/uL (150-450)
[2020-09-27 10:08] LABS: ANISOCYTOSIS 1+; ATYPICAL LYMPH 1 % (0-5); BLOOD UREA NITROGEN 9 MG/DL (7-18); CALCIUM LEVEL 7.8 MG/DL (8.8-10.2); CARBON DIOXIDE LEVEL 23 MEQ/L (21-32); CHLORIDE LEVEL 107 MEQ/L (98-107); CREATININE FOR GFR 0.93 MG/DL (0.70-1.30); EOSINOPHILS 4 % (0-3); GLOMERULAR FILTRATION RATE > 60.0 (>49); GLUCOSE, FASTING 99 MG/DL (70-100); LYMPHOCYTES 14 % (16-44); MONOCYTES 13 % (0-5); NEUTROPHILS 67 % (28-66); PLATELET ESTIMATE DECREASED (NORMAL); POTASSIUM SERUM 3.4 MEQ/L (3.5-5.1); SODIUM LEVEL 138 MEQ/L (136-145)
[2020-09-27] MEDS: MIDODRINE 2.5 MG TAB PO SCH ×2 (13:00→14:52)
[2020-09-27 14:01] LABS: ALBUMIN 2.6 GM/DL (3.2-5.2); ALT/SGPT 10 U/L (12-78); BILIRUBIN,DIRECT 0.3 MG/DL (0.0-0.2); BILIRUBIN,TOTAL 0.8 MG/DL (0.2-1.0); TOTAL PROTEIN 6.9 GM/DL (6.4-8.2)
[2020-09-27] MEDS: THIAMINE 100 MG TAB PO SCH (14:52)
[2020-09-27] MEDS: FUROSEMIDE injection 250 MG in D5W 225 ML IV SCH (16:26)
[2020-09-27] MEDS: RAMELTEON 8 MG TAB (ROZEREM) PO SCH (20:14)
[2020-09-27 20:30] VITALS: BP 109/69
--- NOTE | 2020-09-27 23:58 | IPNPDOC ---
Subjective Date Seen The patient was seen on 09/27/20. Subjective Chief Complaint/HPI Complains of having hematuria from this morning. Complains of extreme heaviness of his feet. Objective Physical Examination General Exam: Positive: Alert, No Acute Distress Eye Exam: Positive: PERRLA, Conjunctiva & lids normal, EOMI; Negative: Sclera icteric Neck Exam: Positive: Supple; Negative: JVD, thyromegaly Chest Exam: Positive: Normal air movement, Other (Bi basal crackles) Heart Exam: Positive: Rate Normal, Regular Rhythm, Normal S1, Normal S2; Negative: Murmurs, Rubs Abdomen Exam: Positive: Normal bowel sounds, Soft, Hernia, Other (morbidly obese, severe parietal edema int eh lower abdomen and sides with lymphedematous changes. ) Extremity Exam: Positive: Edema (massive edema up to the thighs with fluid filled blisters); Negative: Clubbing, Cyanosis Skin Exam: Positive: Other skin issue (Bilateral leg with chronic vnous stasis dermatitis and color changes. ) Assessment /Plan Assessment Recurrent Hematuria after starting xarelto this is likely related to the nephro-ureteral stent being in place. Will need to hold xarelto till stent is out Anasarca due to massive fluid overload , hypoalbuminemia will start on Lasix infusion, spironolactone To boost the BP will give midodrine. Nephrolithiasis/staghorn calculus Status post right sided percutaneous nephro ureteral stent placement by IR on 09/05/20 the percutaneous lithotripsy and stone extraction performed 09/14/2020. Completed antibiotics on 09/15/2020, recommendation was to hold Xarelto for 10 days, therefore this was initiated on 09/24/20. Stent is still in the right ureter, recommendation for removal and 4-6 weeks (between 10/15/2020-10/26/2020) as an outpatient in the urologists office Crowell catheter has already been removed Constipation/fecal impaction resolved Large ventral hernia, not incarcerated stable Left leg numbness Mostly secondary to radiculopathy. Imaging study was negative for fractures. CT of head negative for stroke. Continue gabapentin. Paroxysmal atrial fibrillation now in sinus. will stop mtoprolol will have to stop xarelto till stent is removed Discussed with Dr Live. Anemia H&H since that time is stable Continue with iron and folate supplementation During this hospitalization he was found to have stool for occult blood positive. Recommend GI follow-up as an outpatient. Hb < 8.0 then willl transfuse Depression with insomnia Continue ramelteon Morbid obesity, BMI 56 Complicates care Hypothyroidism Continue levothyroxine Plan/VTE VTE Prophylaxis Ordered?: Yes VTE Exclusion Mechanical Proph: N/A:VTE Prophy Ordered Plan/Urinary Catheter Reason for insertion/continuin: Acute obstruct/retention VS, I&O, 24H, Fishbone Vital Signs/I&O Vital Signs Date Time Temp Pulse Resp B/P (MAP) Pulse Ox O2 Delivery O2 Flow Rate FiO2 09/27/20 20:30 97.4 77 18 109/69 (82) 100 Room Air I&O- Last 24 Hours up to 6 AM 09/27/20 07:00 Intake Total 1560 ml Output Total 900 ml Balance 660 ml Laboratory Data 24H LABS Laboratory Tests 2 09/27/20 08:58: Neutrophils (%) (Auto) , Nucleated Red Blood Cells % (auto) 0.0, Neutrophils 67H, Band Neutrophils 1, Lymphocytes (Manual) 14L, Monocytes (Manual) 13H, Eosinophils (Manual) 4H, Atypical Lymphocytes 1, Anisocytosis 1+, Platelet Estimate DECREASED, Anion Gap 8, Glomerular Filtration Rate > 60.0, Calcium Level 7.8L, Total Bilirubin 0.8, Direct Bilirubin 0.3H, Aspartate Amino Transf (AST/SGOT) 18, Alanine Aminotransferase (ALT/SGPT) 10L, Alkaline Phosphatase 165H, Total Protein 6.9, Albumin 2.6L, Albumin/Globulin Ratio 0.6 CBC/BMP Laboratory Tests 09/27/20 08:58 Microbiology Microbiology 09/27/20 Respiratory Virus Panel (PCR) (ANATOLIY) - Final, Complete SHAINA OLIVER MD September 27, 2020 23:58
[2020-09-28] MEDS: LEVOTHYROXINE 50MCG TABLET (0.05MG) PO SCH (05:30)
[2020-09-28 06:30] VITALS: BP 116/63
[2020-09-28 08:18] LABS: BASO % 0.5 % (0.0-1.0); EOS # 0.5 10^3/uL (0.0-0.5); HEMATOCRIT 26.3 % (42.0-52.0); HEMOGLOBIN 8.3 g/dl (13.5-17.5); LYMPH # 1.2 10^3/uL (1.5-5.0); LYMPH % 14.5 % (24.0-44.0); MEAN CORPUSCULAR HEMOGLOBIN 29.9 pg (27.0-33.0); MEAN CORPUSCULAR HGB CONC 31.6 g/dl (32.0-36.5); MEAN CORPUSCULAR VOLUME 94.6 fl (80.0-96.0); MONO # 1.2 10^3/uL (0.0-0.8); MONO % 13.9 % (2.0-8.0); NEUTROPHILS # 5.4 10^3/uL (1.5-8.5); NEUTROPHILS % 63.3 % (36.0-66.0); PLATELET COUNT, AUTOMATED 140 10^3/uL (150-450); RED BLOOD COUNT 2.78 10^6/uL (4.30-6.10); WHITE BLOOD COUNT 8.6 10^3/uL (4.0-10.0)
[2020-09-28 08:47] LABS: ALBUMIN 2.7 GM/DL (3.2-5.2); BLOOD UREA NITROGEN 8 MG/DL (7-18); CALCIUM LEVEL 7.7 MG/DL (8.8-10.2); CARBON DIOXIDE LEVEL 30 MEQ/L (21-32); CHLORIDE LEVEL 103 MEQ/L (98-107); CREATININE FOR GFR 0.81 MG/DL (0.70-1.30); GLOMERULAR FILTRATION RATE > 60.0 (>49); GLUCOSE, FASTING 84 MG/DL (70-100); MAGNESIUM LEVEL 1.8 MG/DL (1.8-2.4); PHOSPHORUS LEVEL 3.5 MG/DL (2.5-4.9); POTASSIUM SERUM 2.9 MEQ/L (3.5-5.1); SODIUM LEVEL 139 MEQ/L (136-145)
[2020-09-28] MEDS ORDERED: SPIRONOLACTONE 25 MG TAB PO SCH (09:00)
[2020-09-28] MEDS: THIAMINE 100 MG TAB PO SCH (09:27)
[2020-09-28] MEDS: IRON POLYSAC (NIFEREX) 150 MG CAP PO SCH ×2 (09:27→20:58)
[2020-09-28] MEDS: BACLOFEN 5MG PER 1/2 TABLET PO SCH ×2 (09:27→20:58)
[2020-09-28] MEDS: MIDODRINE 2.5 MG TAB PO SCH ×3 (09:27→16:28)
[2020-09-28] MEDS: FOLIC ACID 1 MG TAB PO SCH (09:27)
[2020-09-28] MEDS: GABAPENTIN 100 MG CAP PO SCH ×2 (09:27→20:58)
[2020-09-28] MEDS: DIMETHICONE 2% OINTMENT(VANICREAM) 70GM TUBE TOP SCH ×2 (09:28→20:59)
[2020-09-28] MEDS: NYSTATIN 100,000 UNITS/GM TOPICAL PWD 15 GM TOP SCH ×2 (09:28→20:59)
[2020-09-28 09:30] VITALS: BP 100/67
[2020-09-28] MEDS: POTASSIUM CHLORIDE 10 MEQ SR TABLET PO SCH ×2 (09:30→20:58)
[2020-09-28] MEDS ORDERED: POTASSIUM CHLORIDE 10 MEQ SR TABLET PO ONE ×2 (12:00→23:35)
[2020-09-28 12:17] VITALS: BP 99/67
[2020-09-28] MEDS ORDERED: LIDOCAINE 1% MDV 20ML VIAL As Ordered ONE (14:14)
--- NOTE | 2020-09-28 15:01 | REP ---
PROCEDURE NAME: PICC LINE INSERTION W/SITERITE CLINICAL INFORMATION: Anasarca, difficult IV access.. COMPARISON: None. PROCEDURE DESCRIPTION: The procedure was performed by AVERY Sarabia, under the direct supervision of Dr. Yang. The risks and benefits of the procedure were explained to the patient and an informed consent was obtained both verbally and written. Directly prior to the start of the procedure a formal time-out was completed in the procedure room. The right basilic vein was localized using ultrasound guidance. The skin was prepped and draped in sterile fashion. Three mL of 1% lidocaine 10 mg/mL was used as a local anesthetic. Using ultrasound guidance the right basilic vein was cannulated, and a 0.018 guidewire was inserted and advanced to the level of SVC using fluoroscopic guidance. The needle was removed and a 5.5 Icelandic dilator and peel-away sheath was inserted over the guidewire. A 5.5 Icelandic dual lumen catheter was cut to a length of 40 cm. The dilator was removed and the catheter was inserted over the guidewire with the tip ending at the level of the SVC. The peel-away sheath was removed and the catheter was flushed with heparinized saline as per hospital protocol. The catheter was affixed to the skin and a sterile dressing was applied. The patient tolerated the procedure well and there were no immediate complications. CONCLUSION: PICC line insertion into the right basilic vein. 0.3 minutes of fluoroscopy time was utilized for this procedure. Some fluoroscopic images are performed with last image hold technology. These images require no additional radiation. <Electronically signed by Radha Hansen > 09/28/20 [id number] <Electronically signed by Nathan Yang > 09/28/20 [id number]
[2020-09-28] MEDS: FUROSEMIDE injection 250 MG in D5W 225 ML IV SCH (16:30)
[2020-09-28 16:32] VITALS: BP 99/71
--- NOTE | 2020-09-28 17:55 | IPNPDOC ---
Subjective Date Seen The patient was seen on 09/28/20. Subjective Chief Complaint/HPI Having good result with IV lasix infusion. No other complaints. BP has been stable. Objective Physical Examination General Exam: Positive: Alert, No Acute Distress Eye Exam: Positive: PERRLA, Conjunctiva & lids normal, EOMI; Negative: Sclera icteric Neck Exam: Positive: Supple; Negative: JVD, thyromegaly Chest Exam: Positive: Normal air movement, Other (Bi basal crackles) Heart Exam: Positive: Rate Normal, Regular Rhythm, Normal S1, Normal S2; Negative: Murmurs, Rubs Abdomen Exam: Positive: Normal bowel sounds, Soft, Hernia, Other (morbidly obese, severe parietal edema int eh lower abdomen and sides with lymphedematous changes. ) Extremity Exam: Positive: Edema (massive edema up to the thighs with fluid filled blisters); Negative: Clubbing, Cyanosis Skin Exam: Positive: Other skin issue (Bilateral leg with chronic vnous stasis dermatitis and color changes. ) Assessment /Plan Assessment 65-year-old male with morbid obesity, Paroxysmal A. fib, diastolic CHF, large incisional ventral hernia, chronic constipation with history of recurrent small bowel obstruction/ ileus last episode in July 2020, peripheral vascular disease, right-sided staghorn calculus in the kidney with hydronephrosis status post placement of right percutaneous nephroureteral stent on 09/05/2020 , presented to the emergency room on 09/07/2020 for constipation for 7 days abdomen distention. This was managed with aggressive bowel regimen with enemas and suppositories with resolution of constipation. Hospital course was complicated by gross hematuria starting on 09/11/2020. Urology was consulted. Patient had been scheduled for an outpatient percutaneous nephro lithotomy the week prior, however, that procedure had to be canceled because of an UTI, so urology proceeded to do Right percutaneous nephrolithotomy, basket extraction of stones, right ureteroscopy, right antegrade nephrostogram, right ureteral stent placement on 09/13/2020. Patient was off Xarelto till 09/24/2020. Patient was debilitated and with the difficulty in ambulation, so PT had recommended continued rehabilitation. Patient was waiting to go to short-term rehabilitation been on 09/27/2020 he again started having hematuria. Xarelto was stopped and his hematuria resolved resolved. This was discussed with Dr. Live and he recommended to keep holding the Xarelto till his some ureteral stent comes out. At this time he was also noted to be very fluid overloaded with generalized anasarca. He was diagnosed with diastolic CHF exacerbation. His blood pressures were all a soft in the 90s 100s range, so it was decided to start him on Lasix infusion. Crowell was placed for intake, output monitoring. Nephrology was consulted to help with fluid management. Anasarca Lasix infusion, spironolactone, To boost the BP will give midodrine. Nephrology consult appreciated. Hypokalemia replaced. Recurrent Hematuria after restarting xarelto this is likely related to the nephro-ureteral stent being in place. Will need to hold xarelto till stent is out seems t have resolved at present Nephrolithiasis/staghorn calculus Status post right sided percutaneous nephro ureteral stent placement by IR on 09/05/20 the percutaneous nephrolithotomy and stone extraction and right ureteral stent placement performed 09/13/2020. Completed antibiotics on 09/15/2020, recommendation was to hold Xarelto for 10 days, therefore this was initiated on 09/24/20. Stent is still in the right ureter, recommendation for removal and 4-6 weeks (between 10/15/2020-10/26/2020) as an outpatient in the urologists office Constipation/fecal impaction resolved continue bowel regimen with daily miralax, senna and colace. Large ventral hernia, not incarcerated stable Left leg numbness Mostly secondary to radiculopathy. Imaging study was negative for fractures. CT of head negative for stroke. Continue gabapentin, baclofen. Paroxysmal atrial fibrillation now in sinus. will stop mtoprolol will have to stop xarelto till stent is removed Discussed with Dr Live. Anemia H&H is stable Continue with iron and folate supplementation During this hospitalization he was found to have stool for occult blood positive. Recommend GI follow-up as an outpatient. Hb < 8.0 then will transfuse Depression with insomnia Continue ramelteon Morbid obesity, BMI 56 Complicates care Hypothyroidism Continue levothyroxine Plan/VTE VTE Prophylaxis Ordered?: Yes VTE Exclusion Mechanical Proph: N/A:VTE Prophy Ordered Plan/Urinary Catheter Reason for insertion/continuin: Acute obstruct/retention VS, I&O, 24H, Fishbone Vital Signs/I&O Vital Signs Date Time Temp Pulse Resp B/P (MAP) Pulse Ox O2 Delivery O2 Flow Rate FiO2 09/28/20 16:32 97.9 85 18 99/71 (80) 100 Room Air I&O- Last 24 Hours up to 6 AM 09/28/20 06:00 Intake Total 2340 ml Output Total 5255 ml Balance -2915 ml Laboratory Data 24H LABS Laboratory Tests 2 09/28/20 05:42: Bedside Glucose (Misc Panel) 88 09/28/20 07:48: Immature Granulocyte % (Auto) 1.8, Neutrophils (%) (Auto) 63.3, Lymphocytes (%) (Auto) 14.5L, Monocytes (%) (Auto) 13.9H, Eosinophils (%) (Auto) 6.0H, Basophils (%) (Auto) 0.5, Neutrophils # (Auto) 5.4, Lymphocytes # (Auto) 1.2L, Monocytes # (Auto) 1.2H, Eosinophils # (Auto) 0.5, Basophils # (Auto) 0.0, Nucleated Red Blood Cells % (auto) 0.0, Anion Gap 6L, Glomerular Filtration Rate > 60.0, Calcium Level 7.7L, Phosphorus Level 3.5, Magnesium Level 1.8, Albumin 2.7L CBC/BMP Laboratory Tests 09/28/20 07:48 Microbiology Microbiology 09/27/20 Respiratory Virus Panel (PCR) (ANATOLIY) - Final, Complete SHAINA OLIVER MD September 28, 2020 17:55
[2020-09-28] MEDS: SODIUM CHLORIDE 0.9% INJ 10 ML SYR IV SCH (18:17)
[2020-09-28] MEDS: SENOKOT S TAB PO SCH (20:58)
[2020-09-28] MEDS: RAMELTEON 8 MG TAB (ROZEREM) PO SCH (20:58)
[2020-09-28] MEDS: SPIRONOLACTONE 25 MG TAB PO SCH (21:34)
[2020-09-28 22:00] VITALS: BP 99/72
[2020-09-28 22:12] LABS: BLOOD UREA NITROGEN 6 MG/DL (7-18); CARBON DIOXIDE LEVEL 32 MEQ/L (21-32); CHLORIDE LEVEL 101 MEQ/L (98-107); CREATININE FOR GFR 0.75 MG/DL (0.70-1.30); GLOMERULAR FILTRATION RATE > 60.0 (>49); GLUCOSE, FASTING 100 MG/DL (70-100); POTASSIUM SERUM 2.6 MEQ/L (3.5-5.1); SODIUM LEVEL 139 MEQ/L (136-145)
--- NOTE | 2020-09-28 22:33 | CR ---
CONSULTATION DATE: 09/28/2020 REQUESTING PHYSICIAN: Petra Schroeder M.D. CONSULTING PHYSICIAN: Shamar Hahn M.D. REASON FOR CONSULTATION: Management of anasarca and soft blood pressure, help in the management of diuresis. CHIEF COMPLAINT: Patient was originally admitted to the hospital on September 07, 2020 with constipation. HISTORY OF PRESENT ILLNESS: Ta Mccarthy is a 65-year-old male with a past medical history of morbid obesity, history of right-sided nephrolithiasis with hydronephrosis; status post right-sided nephrostomy on September 05 2020. He was originally admitted to [facility] on September 07 with constipation, which was medically managed by surgical team. His creatinine on arrival was 0.74. Later on because of his right-sided staghorn calculus, he got right-sided percutaneous nephrolithotomy done on September 13, 2020 by urology service and he also got right-sided ureteral stent placed. Patient's renal function was stable, however during his hospital stay in the last three weeks, patient has gradually developed anasarca. He has significant weight gain and his edema goes from his toes all the way up to his chest. Nephrology service was called for further help in the management of this patient. I already discussed the patient with Dr. Petra Schroeder yesterday. Decision was made to give the patient I.V. Lasix drip and keep him on Midodrine for his hypotension. I saw him tomorrow morning. He was sitting in the sofa. He has significant edema. Patient had difficult I.V. access and he was going to have his PICC line placed today. PAST MEDICAL HISTORY: Morbid obesity, baseline renal function is stable with creatinine of around 0.7, depression, paroxysmal atrial fibrillation; anticoagulated with Xarelto, history of right-sided staghorn calculi; status post right-sided nephrolithotomy on September 13, 2020, peripheral vascular disease, anemia and chronic kidney disease, insomnia, chronic indwelling Crowell catheter in the past. PAST SURGICAL HISTORY: Status post right-sided percutaneous nephrostomy on September 05, 2020, left hip replacement, status post right-sided percutaneous nephrolithotomy and right ureteral stent on September 13, 2020, hernia repair, cholecystectomy and appendectomy. ALLERGIES: No known drug allergies. FAMILY HISTORY: No significant family history of end-stage renal disease requiring hemodialysis. SOCIAL HISTORY: Patient is a former smoker. No history of drug abuse or alcohol abuse. REVIEW OF SYSTEMS: CONSTITUTIONAL: He denies any fever and chills. EYES: He denies any blurry vision, double vision. ENT: He denies any dysphagia or odynophagia. CARDIOVASCULAR: He reports significant edema of the bilateral lower extremities. RESPIRATORY: He reports mild shortness of breath. GI: He reports abdominal distention. GENITOURINARY: He reports difficulty with urination and he was going to have a Crowell catheter placed. MUSCULOSKELETAL: He reports muscle aches and pains and lower extremity edema. SKIN: He denies any rashes or ulcers. HEMATOLOGIC/ONCOLOGIC: He denies any easy bleeding or bruising. FABRICATOR SPECIAL ITEMS: He denies any seizures or stroke. All other review of systems is negative. PHYSICAL EXAMINATION: GENERAL: Patient is awake, alert and oriented x2, sitting up in the bed. VITAL SIGNS: Temperature 97.9 degrees Fahrenheit, blood pressure 99/71, pulse 85, respiratory rate 18, saturating 100% on room air. INTAKE AND OUTPUT: With the I.V. Lasix drip, he made 2.5 liters of urine yesterday and so far since last night up until today evening he has made 6 liters of urine. Weight in the bed scale is 157.3 kg. HEAD AND NECK: Extraocular muscles intact. Pupils equally round and reactive to light. Mucous membranes are moist. Neck is supple. He has moderately elevated JVD. CARDIOVASCULAR: S1, S2, regular rate. 4+ edema of the bilateral lower extremities all the way up to his abdominal wall and even chest. RESPIRATORY: Decreased breath sounds bilaterally at the bases. ABDOMEN: Significant amount of abdominal wall edema and ventral hernia was noted. GENITOURINARY: He did not have the Crowell catheter when I saw him, but he said that he was having difficulty with urination. MUSCULOSKELETAL: Significant anasarca of the lower extremities was noted. FABRICATOR SPECIAL ITEMS: No focal deficit. Patient is confused and has difficulty with communication, but otherwise he follows commands. LABORATORY REVIEW: CBC showed WBC 8.6, hemoglobin 8.3, platelets 140,000. BMP showed sodium 139, potassium 2.9, chloride 103, bicarb 30, BUN 8, creatinine 0.81. Calcium 7.7. Phosphorus 3.5. Magnesium 1.8. CURRENT INPATIENT MEDICATIONS: Patient's medications were all reviewed by myself. He is currently on Lasix drip at 10 mg per hour, Tylenol p.r.n., Mylanta p.r.n., Baclofen 5 mg p.o. twice a day, Colace one tablet p.o. twice a day, folic acid 1 mg p.o. daily, Gabapentin 200 mg p.o. twice a day, iron tablet 150 mg p.o. twice a day, Levothyroxine 50 mcg p.o. daily, Midodrine 2.5 mg p.o. three times a day, Nystatin powder topically, potassium chloride 40 mEq p.o. daily; I have changed the dose to 40 mEq p.o. twice a day; additional dose of 40 mEq was given in the afternoon, Rozerem 8 mg p.o. q.h.sAndrea Trejorelto is on hold. He was started on Spironolactone 25 mg p.o. in the morning; I have changed the dose to 25 mg p.o. twice a day. He is also on Thiamine 100 mg p.o. daily. ASSESSMENT AND PLAN: 1. Anasarca: Patient has significant volume overload. I agree with continuing the I.V. Lasix drip, but I am going to decrease the rate a little bit because he has made more than 6 liters of urine so far and his blood pressures are soft. 2. Hypotension: Patient is currently getting Midodrine orally. Blood pressures are soft, but optimal at this time. If his blood pressure drops further, he will be given I.V. albumin to help with diuresis and improve his blood pressures. 3. Hypokalemia: It is secondary to aggressive diuresis. As mentioned above, his potassium dose has been increased. 4. Difficult I.V. access: Patient is going to have PICC line placed for his I.V. medication. 5. Iron deficiency anemia: Patient has received 2 units of PRBC transfusion; latest one was on September 18. His hemoglobin at this time is 8.3, which is still suboptimal. I am going to start him on I.V. iron. Oral iron is being stopped because of constipation. 6. Hypothyroidism: Continue Levothyroxine as per medical team. Thank you for involving me in the care of this patient. I shall be happy to follow the patient along with you tomorrow morning.
[2020-09-28 22:40] VITALS: BP 88/57
[2020-09-28] MEDS: KCL 10MEQ/100ML SWI (KRUN) 10 MEQ in IV 1 EA IV SCH (22:46)
[2020-09-29] VITALS (8 sets, daily range): BP systolic 90–115; BP diastolic 54–67
[2020-09-29] MEDS: KCL 10MEQ/100ML SWI (KRUN) 10 MEQ in IV 1 EA IV SCH ×5 (00:07→09:03)
[2020-09-29] MEDS: SODIUM CHLORIDE 0.9% INJ 10 ML SYR IV SCH ×2 (05:59→18:46)
[2020-09-29] MEDS: LEVOTHYROXINE 50MCG TABLET (0.05MG) PO SCH (05:59)
[2020-09-29 07:29] LABS: HEMATOCRIT 25.1 % (42.0-52.0); HEMOGLOBIN 8.1 g/dl (13.5-17.5); MEAN CORPUSCULAR HEMOGLOBIN 30.3 pg (27.0-33.0); MEAN CORPUSCULAR HGB CONC 32.3 g/dl (32.0-36.5); PLATELET COUNT, AUTOMATED 135 10^3/uL (150-450); RED BLOOD COUNT 2.67 10^6/uL (4.30-6.10); WHITE BLOOD COUNT 8.3 10^3/uL (4.0-10.0)
[2020-09-29 07:53] LABS: ATYPICAL LYMPH 4 % (0-5); EOSINOPHILS 5 % (0-3); LYMPHOCYTES 12 % (16-44); MONOCYTES 9 % (0-5); NEUTROPHILS 69 % (28-66)
[2020-09-29 07:54] LABS: ANISOCYTOSIS 1+; PLATELET ESTIMATE DECREASED (NORMAL); POLYCHROMASIA 1+
[2020-09-29 07:55] LABS: TEAR DROP CELLS 1+
[2020-09-29 07:56] LABS: ALBUMIN 2.6 GM/DL (3.2-5.2); BLOOD UREA NITROGEN 6 MG/DL (7-18); CALCIUM LEVEL 7.3 MG/DL (8.8-10.2); CARBON DIOXIDE LEVEL 29 MEQ/L (21-32); CHLORIDE LEVEL 103 MEQ/L (98-107); CREATININE FOR GFR 0.77 MG/DL (0.70-1.30); GLOMERULAR FILTRATION RATE > 60.0 (>49); GLUCOSE, FASTING 88 MG/DL (70-100); POTASSIUM SERUM 2.9 MEQ/L (3.5-5.1); SODIUM LEVEL 140 MEQ/L (136-145)
[2020-09-29] MEDS: MIDODRINE 2.5 MG TAB PO SCH ×3 (08:59→16:51)
[2020-09-29] MEDS: SPIRONOLACTONE 25 MG TAB PO SCH (09:00)
[2020-09-29] MEDS: SENOKOT S TAB PO SCH ×2 (09:01→20:48)
[2020-09-29] MEDS: MIRALAX *UNIT DOSE* 17GM PACKET PO SCH (09:01)
[2020-09-29] MEDS: DIMETHICONE 2% OINTMENT(VANICREAM) 70GM TUBE TOP SCH ×2 (09:01→20:49)
[2020-09-29] MEDS: IRON SUCROSE 200 MG in NS 100 ML IV SCH (09:01)
[2020-09-29] MEDS: POTASSIUM CHLORIDE 10 MEQ SR TABLET PO SCH ×3 (11:09→20:48)
[2020-09-29] MEDS: THIAMINE 100 MG TAB PO SCH (11:10)
[2020-09-29] MEDS: GABAPENTIN 100 MG CAP PO SCH ×2 (11:10→20:48)
[2020-09-29] MEDS: FOLIC ACID 1 MG TAB PO SCH (11:15)
[2020-09-29] MEDS: BACLOFEN 5MG PER 1/2 TABLET PO SCH ×2 (11:15→20:48)
[2020-09-29] MEDS: NYSTATIN 100,000 UNITS/GM TOPICAL PWD 15 GM TOP SCH ×2 (11:16→20:49)
--- NOTE | 2020-09-29 12:42 | IPNPDOC ---
Subjective Date Seen The patient was seen on 09/29/20. Subjective Chief Complaint/HPI No complaints this morning. Reports slept better last night after the mccarthy cath. Severely hypokalemic overnight receiving k runs. Objective Physical Examination General Exam: Positive: Alert, No Acute Distress Eye Exam: Positive: PERRLA, Conjunctiva & lids normal, EOMI; Negative: Sclera icteric Neck Exam: Positive: Supple; Negative: JVD, thyromegaly Chest Exam: Positive: Normal air movement, Other (Bi basal crackles) Heart Exam: Positive: Rate Normal, Regular Rhythm, Normal S1, Normal S2; Negative: Murmurs, Rubs Abdomen Exam: Positive: Normal bowel sounds, Soft, Hernia, Other (morbidly obese, severe parietal edema int eh lower abdomen and sides with lymphedematous changes. ) Extremity Exam: Positive: Edema (massive edema up to the thighs with fluid f illed blisters); Negative: Clubbing, Cyanosis Skin Exam: Positive: Other skin issue (Bilateral leg with chronic vnous stasis dermatitis and color changes. ) Assessment /Plan Assessment 65-year-old male with morbid obesity, Paroxysmal A. fib, diastolic CHF, large incisional ventral hernia, chronic constipation with history of recurrent small bowel obstruction/ ileus last episode in July 2020, peripheral vascular disease, right-sided staghorn calculus in the kidney with hydronephrosis status post placement of right percutaneous nephroureteral stent on 09/05/2020 , presented to the emergency room on 09/07/2020 for constipation for 7 days abdomen distention. This was managed with aggressive bowel regimen with enemas and suppositories with resolution of constipation. Hospital course was complicated by gross hematuria starting on 09/11/2020. Urology was consulted. Patient had been scheduled for an outpatient percutaneous nephro lithotomy the week prior, however, that procedure had to be canceled because of an UTI, so urology proceeded to do Right percutaneous nephrolithotomy, basket extraction of stones, right ureteroscopy, right antegrade nephrostogram, right ureteral stent placement on 09/13/2020. Patient was off Xarelto till 09/24/2020. Patient was debilitated and with the difficulty in ambulation, so PT had recommended continued rehabilitation. Patient was waiting to go to short-term rehabilitation been on 09/27/2020 he again started having hematuria. Xarelto was stopped and his hematuria resolved resolved. This was discussed with Dr. Live and he recommended to keep holding the Xarelto till his some ureteral stent comes out. At this time he was also noted to be very fluid overloaded with generalized anasarca. He was diagnosed with diastolic CHF exacerbation. His blood pressures were all a soft in the 90s 100s range, so it was decided to start him on Lasix infusion. Mccarthy was placed for intake, output monitoring. Nephrology was consulted to help with fluid management. Anasarca Was on Lasix infusion, spironolactone, Now changed to iv lasix. To boost the BP will give midodrine. Nephrology consult appreciated. Hypokalemia being replaced. Recurrent Hematuria after restarting xarelto this is likely related to the nephro-ureteral stent being in place. Will need to hold xarelto till stent is out resolved at present Nephrolithiasis/staghorn calculus Status post right sided percutaneous nephro ureteral stent placement by IR on 09/05/20 the percutaneous nephrolithotomy and stone extraction and right ureteral stent placement performed 09/13/2020. Completed antibiotics on 09/15/2020, recommendation was to hold Xarelto for 10 days, therefore this was initiated on 09/24/20. Stent is still in the right ureter, recommendation for removal and 4-6 weeks (between 10/15/2020-10/26/2020) as an outpatient in the urologists office Constipation/fecal impaction resolved continue bowel regimen with daily miralax, senna and colace. Large ventral hernia, not incarcerated stable Left leg numbness Mostly secondary to radiculopathy. Imaging study was negative for fractures. CT of head negative for stroke. Continue gabapentin, baclofen. Paroxysmal atrial fibrillation now in sinus. will stop metoprolol will have to stop xarelto till stent is removed Discussed with Dr Live. Anemia H&H is stable Continue with iron and folate supplementation During this hospitalization he was found to have stool for occult blood positive. Recommend GI follow-up as an outpatient. Hb < 8.0 then will transfuse Depression with insomnia Continue ramelteon Morbid obesity, BMI 56 Complicates care Hypothyroidism Continue levothyroxine Plan/VTE VTE Prophylaxis Ordered?: Yes VTE Exclusion Mechanical Proph: N/A:VTE Prophy Ordered Plan/Urinary Catheter Reason for insertion/continuin: Acute obstruct/retention VS, I&O, 24H, Fishbone Vital Signs/I&O Vital Signs Date Time Temp Pulse Resp B/P (MAP) Pulse Ox O2 Delivery O2 Flow Rate FiO2 09/29/20 09:00 98.2 86 22 101/67 (78) 96 Room Air I&O- Last 24 Hours up to 6 AM 09/29/20 06:00 Intake Total 2175 ml Output Total 5200 ml Balance -3025 ml Laboratory Data 24H LABS Laboratory Tests 2 09/28/20 21:33: Anion Gap 6L, Glomerular Filtration Rate > 60.0, Calcium Level 7.0L 09/29/20 06:46: Anion Gap 8, Glomerular Filtration Rate > 60.0, Calcium Level 7.3L, Phosphorus Level 3.0, Albumin 2.6L 09/29/20 06:47: Neutrophils (%) (Auto) , Nucleated Red Blood Cells % (auto) 0.0, Neutrophils 69H, Band Neutrophils 1, Lymphocytes (Manual) 12L, Monocytes (Manual) 9H, Eosinophils (Manual) 5H, Atypical Lymphocytes 4, Polychromasia 1+, Anisocytosis 1+, Tear Drop Cells 1+, Platelet Estimate DECREASED CBC/BMP Laboratory Tests 09/28/20 21:33 09/29/20 06:46 09/29/20 06:47 Microbiology Microbiology 09/27/20 Respiratory Virus Panel (PCR) ([facility]) - Final, Complete SHAINA OLIVER MD September 29, 2020 12:42
[2020-09-29] MEDS: FUROSEMIDE 40MG/4ML VIAL (J1940) IV SCH ×2 (12:58→18:45)
[2020-09-29 16:07] LABS: BLOOD UREA NITROGEN 5 MG/DL (7-18); CALCIUM LEVEL 6.7 MG/DL (8.8-10.2); CARBON DIOXIDE LEVEL 31 MEQ/L (21-32); CHLORIDE LEVEL 103 MEQ/L (98-107); CREATININE FOR GFR 0.77 MG/DL (0.70-1.30); GLOMERULAR FILTRATION RATE > 60.0 (>49); GLUCOSE, FASTING 103 MG/DL (70-100); SODIUM LEVEL 140 MEQ/L (136-145)
[2020-09-29] MEDS: SPIRONOLACTONE 50 MG TAB PO SCH (16:50)
[2020-09-29] MEDS: RAMELTEON 8 MG TAB (ROZEREM) PO SCH (20:48)
[2020-09-29] MEDS ORDERED: CALCIUM GLUCONATE 1,000 MG in D5W MINI-BAG PLUS 100 ML IV ONE (21:45)
--- NOTE | 2020-09-29 22:35 | IPN ---
NEPHROLOGY PROGRESS NOTE DATE: 09/29/2020 SUBJECTIVE: The patient was seen and examined at the bedside today. Last 24-hour events were noted. The patient was on Lasix drip yesterday. He diuresed very well and he made 6.8 liters of urine output last night. He became hypotensive with that much urine output. He was also hypokalemic with a potassium of 2.6 last night. His IV Lasix had to be stopped. He needed to be given IV and oral potassium and despite that, his potassium is still low in the morning. Diuretics are still on hold. The patient still has significant edema despite significant diuresis which was done yesterday. OBJECTIVE: VITAL SIGNS: Temperature is 98.1 degrees Fahrenheit, blood pressure 100/62, pulse is 77, respiratory rate of 17, saturating 96% on room air. INTAKE AND OUTPUT: Urine output recorded as 6.8 liters yesterday, and 1,400 mL by the time I saw him in the morning. Weight in the bed scale was 157.3 kg yesterday. PHYSICAL EXAMINATION: GENERAL APPEARANCE: The patient is awake, alert, oriented x3, morbidly obese, sitting up in the bed. HEAD AND NECK: Extraocular muscles intact. Pupils are equally round and reactive to light. Mucous membranes are moist. Neck is supple. Moderately elevated jugular venous distention. CARDIOVASCULAR: S1, S2, regular rate. EXTREMITIES: 3+ edema of the bilateral lower extremities, starting from the toes all the way up to his gluteal region. RESPIRATORY: Mildly decreased breath sounds at the bases, otherwise no active rales or rhonchi. ABDOMEN: Obese, abdominal wall edema was noted. Presacral edema was also noted. MUSCULOSKELETAL: Significant edema of the bilateral lower extremities as mentioned above. Otherwise no clubbing or cyanosis. 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 He is oriented x2 and no active change in the mentation as compared with his baseline. He moves extremities and follows commands. LAB REVIEW: CBC showed a WBC count of 8.3, hemoglobin 8.1, platelet count 135. BMP showed sodium 140, potassium 3, chloride 103, bicarbonate 31, BUN 5, creatinine 0.77, glucose 103, calcium 6.7. CURRENT INPATIENT MEDICATIONS: The patient's medications were all reviewed by myself. His IV Lasix was stopped yesterday. He got 40 mEq of total IV KCL last night. He was given another 20 in the morning. He is getting IV Venofer. IV Lasix drip has been stopped and he has been started on Lasix injection 40 mg IV q. 6 hourly. He is also getting potassium chloride 40 mEq p.o. three times daily. Spironolactone dose has been increased to 50 mg p.o. twice daily. ASSESSMENT AND PLAN: 1. Anasarca - The patient responded very well to the IV Lasix drip, however he became hypotensive with significant urine output. His Lasix has been changed to 40 mg injections every 6 hourly. Continue to monitor intake and output. 2. Hypokalemia it is secondary to aggressive diuresis. Spironolactone has been changed to 50 mg p.o. twice daily. Oral potassium dose has been increased. IV potassium has also been given. 3. Hypocalcemia - The patient will be given IV calcium gluconate. 4. Iron deficiency anemia he continues to get IV Venofer. 5. Hypotension - continue current dose of Midodrine at this time. Blood pressures are optimal.
[2020-09-30] MEDS: FUROSEMIDE 40MG/4ML VIAL (J1940) IV SCH ×3 (00:16→12:57)
[2020-09-30] MEDS: LEVOTHYROXINE 50MCG TABLET (0.05MG) PO SCH (05:50)
[2020-09-30] MEDS: SODIUM CHLORIDE 0.9% INJ 10 ML SYR IV SCH ×2 (05:51→17:10)
[2020-09-30 06:00] VITALS: BP 107/51
[2020-09-30 06:39] LABS: HEMATOCRIT 27.3 % (42.0-52.0); HEMOGLOBIN 8.5 g/dl (13.5-17.5); MEAN CORPUSCULAR HEMOGLOBIN 29.6 pg (27.0-33.0); MEAN CORPUSCULAR HGB CONC 31.1 g/dl (32.0-36.5); MEAN CORPUSCULAR VOLUME 95.1 fl (80.0-96.0); PLATELET COUNT, AUTOMATED 136 10^3/uL (150-450); RED BLOOD COUNT 2.87 10^6/uL (4.30-6.10); WHITE BLOOD COUNT 7.2 10^3/uL (4.0-10.0)
[2020-09-30 06:54] LABS: ALBUMIN 2.8 GM/DL (3.2-5.2); BLOOD UREA NITROGEN 5 MG/DL (7-18); CALCIUM LEVEL 7.4 MG/DL (8.8-10.2); CARBON DIOXIDE LEVEL 32 MEQ/L (21-32); CHLORIDE LEVEL 104 MEQ/L (98-107); CREATININE FOR GFR 0.79 MG/DL (0.70-1.30); GLOMERULAR FILTRATION RATE > 60.0 (>49); GLUCOSE, FASTING 85 MG/DL (70-100); PHOSPHORUS LEVEL 2.9 MG/DL (2.5-4.9); POTASSIUM SERUM 3.6 MEQ/L (3.5-5.1); SODIUM LEVEL 142 MEQ/L (136-145)
[2020-09-30 07:25] LABS: ATYPICAL LYMPH 2 % (0-5); BASOPHILS 1 % (0-1); EOSINOPHILS 5 % (0-3); LYMPHOCYTES 17 % (16-44); MONOCYTES 5 % (0-5); MYELOCYTES 1 % (0-0); NEUTROPHILS 67 % (28-66)
[2020-09-30 07:26] LABS: ANISOCYTOSIS 2+; HYPOCHROMASIA 1+; OVALOCYTES 1+; PLATELET ESTIMATE DECREASED (NORMAL)
[2020-09-30] MEDS: MIDODRINE 2.5 MG TAB PO SCH ×3 (08:59→17:09)
[2020-09-30] MEDS: SENOKOT S TAB PO SCH ×2 (09:00→21:21)
[2020-09-30] MEDS: BACLOFEN 5MG PER 1/2 TABLET PO SCH ×2 (09:00→21:22)
[2020-09-30] MEDS: GABAPENTIN 100 MG CAP PO SCH ×2 (09:00→21:22)
[2020-09-30] MEDS: SPIRONOLACTONE 50 MG TAB PO SCH ×2 (09:00→17:10)
[2020-09-30] MEDS: IRON SUCROSE 200 MG in NS 100 ML IV SCH (09:00)
[2020-09-30] MEDS: NYSTATIN 100,000 UNITS/GM TOPICAL PWD 15 GM TOP SCH ×2 (09:01→21:23)
[2020-09-30] MEDS: MIRALAX *UNIT DOSE* 17GM PACKET PO SCH (09:01)
[2020-09-30] MEDS: THIAMINE 100 MG TAB PO SCH (09:01)
[2020-09-30] MEDS: POTASSIUM CHLORIDE 10 MEQ SR TABLET PO SCH ×3 (09:01→21:22)
[2020-09-30] MEDS: DIMETHICONE 2% OINTMENT(VANICREAM) 70GM TUBE TOP SCH ×2 (09:01→21:23)
[2020-09-30] MEDS: FOLIC ACID 1 MG TAB PO SCH (09:01)
--- NOTE | 2020-09-30 09:49 | IPNPDOC ---
Subjective Date Seen The patient was seen on 09/30/20. Subjective Chief Complaint/HPI No complaints this morning. Has not had a bowel movement inthe last 2 days. DOes not complain of any abdominal distension. Good negative balance with lasix. Objective Physical Examination General Exam: Positive: Alert, No Acute Distress Eye Exam: Positive: PERRLA, Conjunctiva & lids normal, EOMI; Negative: Sclera icteric Neck Exam: Positive: Supple; Negative: JVD, thyromegaly Chest Exam: Positive: Normal air movement, Other (Bi basal crackles) Heart Exam: Positive: Rate Normal, Regular Rhythm, Normal S1, Normal S2; Negative: Murmurs, Rubs Abdomen Exam: Positive: Normal bowel sounds, Soft, Hernia, Other (morbidly obese, severe parietal edema int eh lower abdomen and sides with lymphedematous changes. ) Extremity Exam: Positive: Edema (massive edema up to the thighs with fluid filled blisters); Negative: Clubbing, Cyanosis Skin Exam: Positive: Other skin issue (Bilateral leg with chronic vnous stasis dermatitis and color changes. ) Assessment /Plan Assessment 65-year-old male with morbid obesity, Paroxysmal A. fib, diastolic CHF, large incisional ventral hernia, chronic constipation with history of recurrent small bowel obstruction/ ileus last episode in July 2020, peripheral vascular disease, right-sided staghorn calculus in the kidney with hydronephrosis status post placement of right percutaneous nephroureteral stent on 09/05/2020 , presented to the emergency room on 09/07/2020 for constipation for 7 days abdomen distention. This was managed with aggressive bowel regimen with enemas and suppositories with resolution of constipation. Hospital course was complicated by gross hematuria starting on 09/11/2020. Urology was consulted. Patient had been scheduled for an outpatient percutaneous nephro lithotomy the week prior, however, that procedure had to be canceled because of an UTI, so urology proceeded to do Right percutaneous nephrolithotomy, basket extraction of stones, right ureteroscopy, right antegrade nephrostogram, right ureteral stent placement on 09/13/2020. Patient was off Xarelto till 09/24/2020. Patient was debilitated and with the difficulty in ambulation, so PT had recommended continued rehabilitation. Patient was waiting to go to short-term rehabilitation been on 09/27/2020 he again started having hematuria. Xarelto was stopped and his hematuria resolved resolved. This was discussed with Dr. Live and he recommended to keep holding the Xarelto till his some ureteral stent comes out. At this time he was also noted to be very fluid overloaded with generalized anasarca. He was diagnosed with diastolic CHF exacerbation. His blood pressures were all a soft in the 90s 100s range, so it was decided to start him on Lasix infusion. Crowell was placed for intake, output monitoring. Nephrology was consulted to help with fluid management. Anasarca/ Diastolic CHF exacerbation. On IV lasix and spironolactone, To boost the BP will give midodrine. Nephrology consult appreciated. Hypokalemia being replaced. Recurrent Hematuria after restarting xarelto this is likely related to the nephro-ureteral stent being in place. Will need to hold xarelto till stent is out resolved at present Nephrolithiasis/staghorn calculus Status post right sided percutaneous nephro ureteral stent placement by IR on 09/05/20 the percutaneous nephrolithotomy and stone extraction and right ureteral stent placement performed 09/13/2020. Completed antibiotics on 09/15/2020, recommendation was to hold Xarelto for 10 days, therefore this was initiated on 09/24/20. Stent is still in the right ureter, recommendation for removal and 4-6 weeks (between 10/15/2020-10/26/2020) as an outpatient in the urologists office Constipation/fecal impaction resolved continue bowel regimen with daily miralax, senna and colace. Large ventral hernia, not incarcerated stable Left leg numbness Mostly secondary to radiculopathy. Imaging study was negative for fractures. CT of head negative for stroke. Continue gabapentin, baclofen. Paroxysmal atrial fibrillation now in sinus. will stop metoprolol will have to stop xarelto till stent is removed Discussed with Dr Live. Anemia H&H is stable Continue with iron and folate supplementation During this hospitalization he was found to have stool for occult blood positive. Recommend GI follow-up as an outpatient. Hb < 8.0 then will transfuse Depression with insomnia Continue ramelteon Morbid obesity, BMI 56 Complicates care Hypothyroidism Continue levothyroxine Plan/VTE VTE Prophylaxis Ordered?: Yes VTE Exclusion Mechanical Proph: N/A:VTE Prophy Ordered Plan/Urinary Catheter Reason for insertion/continuin: Acute obstruct/retention VS, I&O, 24H, Fishbone Vital Signs/I&O Vital Signs Date Time Temp Pulse Resp B/P (MAP) Pulse Ox O2 Delivery O2 Flow Rate FiO2 09/30/20 06:00 97.5 61 18 107/51 (69) 98 Room Air I&O- Last 24 Hours up to 6 AM 09/30/20 06:00 Intake Total 1280 ml Output Total 3375 ml Balance -2095 ml Laboratory Data 24H LABS Laboratory Tests 2 09/29/20 15:16: Anion Gap 6L, Glomerular Filtration Rate > 60.0, Calcium Level 6.7L 09/30/20 06:07: Anion Gap 6L, Glomerular Filtration Rate > 60.0, Calcium Level 7.4L, Neutrophils (%) (Auto) , Nucleated Red Blood Cells % (auto) 0.0, Neutrophils 67H, Band Neutrophils 2, Lymphocytes (Manual) 17, Monocytes (Manual) 5, Eosinophils (Manual) 5H, Basophils (Manual) 1, Myelocytes 1H, Atypical Lymphocytes 2, Hypochromasia 1+, Anisocytosis 2+, Macrocytosis 1+, Ovalocytes 1+, Platelet Estimate DECREASED, Phosphorus Level 2.9, Albumin 2.8L CBC/BMP Laboratory Tests 09/29/20 15:16 09/30/20 06:07 Microbiology Microbiology 09/27/20 Respiratory Virus Panel (PCR) ([facility]ATOLIY) - Final, Complete SHAINA OLIVER MD September 30, 2020 09:49
[2020-09-30] MEDS: SODIUM CHLORIDE 0.9% INJ 10 ML SYR IV PRN (12:58)
[2020-09-30 13:06] VITALS: BP 115/80
[2020-09-30 14:00] VITALS: BP 111/64
--- NOTE | 2020-09-30 16:09 | IPN ---
NEPHROLOGY PROGRESS NOTE DATE: 09/30/2020 SUBJECTIVE: Patient was seen and examined at the bedside today morning. He still reports persistent lower extremity edema. His intravenous (IV) Lasix drip was stopped the day before yesterday because of significant urine output, hypotension and hypokalemia. His hypokalemia has improved with oral potassium supplementation and spironolactone. He was getting Lasix injections 40 mg every 6 hours. He is making a good amount of urine, but he had so much edema that he would need to start the Lasix drip now. OBJECTIVE: VITAL SIGNS: Temperature 97.5 degrees Fahrenheit, blood pressure 107/51, pulse 61, respiratory rate 18, saturating 98% on room air. INTAKE AND OUTPUT: Urine output recorded as 1.8 liters so far today. Weight in the bed scale is not available. PHYSICAL EXAMINATION: GENERAL: Patient is awake, alert, oriented times two, morbidly obese, sitting up in the recliner chair. HEAD AND NECK EXAM: Extraocular muscles intact. Pupils equally round and reactive to light. Mucous membranes are moist. Neck is supple. Mildly elevated jugular venous distention (JVD). CARDIOVASCULAR: S1, S2. He has 4+ edema of the lower extremities starting from his ankles all the way up to his abdominal wall and even up to the chest wall. RESPIRATORY: Mildly decreased breath sounds at the bases. Mild respiratory crackles at the bases. ABDOMEN: Significantly distended with tense abdominal wall edema. MUSCULOSKELETAL: Significant edema of the bilateral lower extremities and chronic venous stasis changes. 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 Baseline, he has some dementia and he is oriented times two. LABORATORY REVIEW: CBC showed WBC 7.2, hemoglobin 8.5, platelets 136. BMP showed sodium 142, potassium 3.6, chloride 104, bicarbonate 32, BUN 5, creatinine 0.79. CURRENT INPATIENT MEDICATIONS: Patient's medications were all reviewed by myself. I am stopping the IV Lasix injections and starting the patient on Lasix drip again. Midodrine was increased to 5 mg by mouth three times a day. Spironolactone is being increased to 100 mg by mouth twice a day. ASSESSMENT AND PLAN: 1. Anasarca. Patient was given low dose Lasix injections because of hypokalemia. I am starting the patient back on Lasix drip. Continue oral potassium. Continue to monitor intake and output. 2. Hypokalemia. It is better. Spironolactone has been changed to 100 mg twice a day. Continue potassium chloride 20 mEq by mouth three times a day. 3. Iron deficiency anemia. He is getting IV Venofer now. Hemoglobin level is slowly improving. 4. Hypotension. Midodrine dose was increased to 5 mg three times a day. Blood pressures are better controlled. 5. Chronic kidney disease stage II. Patient's renal function is stable despite aggressive diuresis. His creatinine was 0.7 today morning.
[2020-09-30] MEDS: FUROSEMIDE injection 250 MG in D5W 225 ML IV SCH (17:09)
[2020-09-30] MEDS: RAMELTEON 8 MG TAB (ROZEREM) PO SCH (21:22)
[2020-09-30 22:00] VITALS: BP 102/56
[2020-10-01 00:15] VITALS: BP 108/61
[2020-10-01] MEDS: SODIUM CHLORIDE 0.9% INJ 10 ML SYR IV SCH ×2 (05:45→17:00)
[2020-10-01] MEDS: LEVOTHYROXINE 50MCG TABLET (0.05MG) PO SCH (05:46)
[2020-10-01 06:00] VITALS: BP 101/62
[2020-10-01 07:20] LABS: HEMATOCRIT 27.6 % (42.0-52.0); HEMOGLOBIN 8.7 g/dl (13.5-17.5); MEAN CORPUSCULAR HEMOGLOBIN 29.9 pg (27.0-33.0); MEAN CORPUSCULAR HGB CONC 31.5 g/dl (32.0-36.5); MEAN CORPUSCULAR VOLUME 94.8 fl (80.0-96.0); PLATELET COUNT, AUTOMATED 142 10^3/uL (150-450); RED BLOOD COUNT 2.91 10^6/uL (4.30-6.10); WHITE BLOOD COUNT 6.7 10^3/uL (4.0-10.0)
[2020-10-01 07:43] LABS: ALBUMIN 2.8 GM/DL (3.2-5.2); BLOOD UREA NITROGEN 5 MG/DL (7-18); CALCIUM LEVEL 7.1 MG/DL (8.8-10.2); CARBON DIOXIDE LEVEL 33 MEQ/L (21-32); CHLORIDE LEVEL 99 MEQ/L (98-107); CREATININE FOR GFR 0.84 MG/DL (0.70-1.30); GLOMERULAR FILTRATION RATE > 60.0 (>49); GLUCOSE, FASTING 80 MG/DL (70-100); PHOSPHORUS LEVEL 2.7 MG/DL (2.5-4.9); POTASSIUM SERUM 3.7 MEQ/L (3.5-5.1); SODIUM LEVEL 137 MEQ/L (136-145)
[2020-10-01 08:04] LABS: EOSINOPHILS 4 % (0-3); LYMPHOCYTES 29 % (16-44); MONOCYTES 4 % (0-5); NEUTROPHILS 61 % (28-66); PLATELET ESTIMATE NORMAL (NORMAL)
[2020-10-01] MEDS: MIRALAX *UNIT DOSE* 17GM PACKET PO SCH (09:52)
[2020-10-01] MEDS: GABAPENTIN 100 MG CAP PO SCH ×2 (09:53→20:32)
[2020-10-01] MEDS: POTASSIUM CHLORIDE 10 MEQ SR TABLET PO SCH ×3 (09:53→20:31)
[2020-10-01] MEDS: THIAMINE 100 MG TAB PO SCH (09:53)
[2020-10-01] MEDS: SPIRONOLACTONE 50 MG TAB PO SCH ×2 (09:53→16:59)
[2020-10-01] MEDS: FOLIC ACID 1 MG TAB PO SCH (09:53)
[2020-10-01] MEDS: MIDODRINE 2.5 MG TAB PO SCH ×3 (09:53→15:19)
[2020-10-01] MEDS: IRON SUCROSE 200 MG in NS 100 ML IV SCH (09:54)
[2020-10-01] MEDS: SENOKOT S TAB PO SCH ×2 (09:54→20:33)
[2020-10-01] MEDS: DIMETHICONE 2% OINTMENT(VANICREAM) 70GM TUBE TOP SCH ×2 (09:54→20:34)
[2020-10-01] MEDS: BACLOFEN 5MG PER 1/2 TABLET PO SCH ×2 (09:54→20:33)
[2020-10-01] MEDS: NYSTATIN 100,000 UNITS/GM TOPICAL PWD 15 GM TOP SCH ×2 (09:54→20:34)
--- NOTE | 2020-10-01 11:02 | IPNPDOC ---
Subjective Date Seen The patient was seen on 10/01/20. Subjective Chief Complaint/HPI No complaints overnight. Back on lasix infusion with very good results. negative 1.8 liters in the past 12 hours. Has been working with PT. was able to walk 66 ft yesterday. Objective Physical Examination General Exam: Positive: Alert, Cooperative, No Acute Distress Eye Exam: Positive: PERRLA, Conjunctiva & lids normal, EOMI; Negative: Sclera icteric Neck Exam: Positive: Supple; Negative: JVD, thyromegaly Chest Exam: Positive: Normal air movement, Other (Bi basal crackles) Heart Exam: Positive: Rate Normal, Regular Rhythm, Normal S1, Normal S2; Negative: Murmurs, Rubs Abdomen Exam: Positive: Normal bowel sounds, Soft, Hernia, Other (morbidly obese, severe parietal edema int eh lower abdomen and sides with lymphedematous changes. ) Extremity Exam: Positive: Edema (massive edema up to the thighs with fluid filled blisters); Negative: Clubbing, Cyanosis Skin Exam: Positive: Other skin issue (Bilateral leg with chronic vnous stasis dermatitis and color changes. ) Assessment /Plan Assessment 65-year-old male with morbid obesity, Paroxysmal A. fib, diastolic CHF, large incisional ventral hernia, chronic constipation with history of recurrent small bowel obstruction/ ileus last episode in July 2020, peripheral vascular disease, right-sided staghorn calculus in the kidney with hydronephrosis status post placement of right percutaneous nephroureteral stent on 09/05/2020 , presen margareth to the emergency room on 09/07/2020 for constipation for 7 days abdomen distention. This was managed with aggressive bowel regimen with enemas and suppositories with resolution of constipation. Hospital course was complicated by gross hematuria starting on 09/11/2020. Urology was consulted. Patient had been scheduled for an outpatient percutaneous nephro lithotomy the week prior, however, that procedure had to be canceled because of an UTI, so urology proceeded to do Right percutaneous nephrolithotomy, basket extraction of stones, right ureteroscopy, right antegrade nephrostogram, right ureteral stent placement on 09/13/2020. Patient was off Xarelto till 09/24/2020. Patient was debilitated and with the difficulty in ambulation, so PT had recommended con tinued rehabilitation. Patient was waiting to go to short-term rehabilitation been on 09/27/2020 he again started having hematuria. Xarelto was stopped and his hematuria resolved resolved. This was discussed with Dr. Live and he recommended to keep holding the Xarelto till his some ureteral stent comes out. At this time he was also noted to be very fluid overloaded with generalized anasarca. He was diagnosed with diastolic CHF exacerbation. His blood pressures were all a soft in the 90s 100s range, so it was decided to start him on Lasix infusion. Crowell was placed for intake, output monitoring. Nephrology was consulted to help with fluid management. Anasarca/ Diastolic CHF exacerbation. On IV lasix and spironolactone, To boost the BP on midodrine. Nephrology consult appreciated. Having good negative balance. Hypokalemia being replaced. Recurrent Hematuria after restarting xarelto this is likely related to the right ureteral stent being in place. Will need to hold xarelto till stent is out resolved at present Nephrolithiasis/staghorn calculus Status post right sided percutaneous nephro ureteral stent placement by IR on 09/05/20 then percutaneous nephrolithotomy and stone extraction and right ureteral stent placement performed 09/13/2020. Completed antibiotics on 09/15/2020, recommendation was to hold Xarelto for 10 days, therefore this was initiated on 09/24/20. Stent is still in the right ureter, recommendation for removal and 4-6 weeks (between 10/15/2020-10/26/2020) as an outpatient in the urologists office Constipation/fecal impaction on admission this time resolved continue bowel regimen with daily miralax, senna and colace. Large ventral hernia, not incarcerated stable Left leg numbness Mostly secondary to radiculopathy. Imaging study was negative for fractures. CT of head negative for stroke. Continue gabapentin, baclofen. Paroxysmal atrial fibrillation now in sinus. will stop metoprolol will have to stop xarelto till stent is removed Discussed with Dr Live. Anemia H&H is stable Continue with iron and folate supplementation During this hospitalization he was found to have stool for occult blood positive. Recommend GI follow-up as an outpatient. Hb < 8.0 then will transfuse Depression with insomnia Continue ramelteon Morbid obesity, BMI 56 Complicates care Hypothyroidism Continue levothyroxine Plan/VTE VTE Prophylaxis Ordered?: Yes VTE Exclusion Mechanical Proph: N/A:VTE Prophy Ordered Plan/Urinary Catheter Reason for insertion/continuin: Acute obstruct/retention VS, I&O, 24H, Fishbone Vital Signs/I&O Vital Signs Date Time Temp Pulse Resp B/P (MAP) Pulse Ox O2 Delivery O2 Flow Rate FiO2 10/01/20 06:00 97.2 62 17 101/62 (75) 97 Room Air I&O- Last 24 Hours up to 6 AM 10/01/20 07:00 Intake Total 2125 ml Output Total 4525 ml Balance -2400 ml Laboratory Data Microbiology Microbiology 09/27/20 Respiratory Virus Panel (PCR) (ANATOLIY) - Final, Complete HSAINA OLIVER MD October 01, 2020 06:36
[2020-10-01 14:00] VITALS: BP 92/62
[2020-10-01] MEDS: FUROSEMIDE injection 250 MG in D5W 225 ML IV SCH (15:18)
--- NOTE | 2020-10-01 16:25 | IPN ---
NEPHROLOGY PROGRESS NOTE DATE: 10/01/2020 SUBJECTIVE: Mr. Mccarthy is seen and examined this morning in the bariatric chair by the bedside. He denies any overnight complaints. He has been working with Physical Therapy. He reports his leg edema is mildly improved but he notes ongoing abdominal wall edema. He is responding nicely to Lasix infusion. OBJECTIVE: PHYSICAL EXAMINATION: VITAL SIGNS: Temperature 97.2, pulse 62, respiratory rate 17, blood pressure 101/62, saturating 97% on room air. INTAKE AND OUTPUT: Intake yesterday was 2 liters. Urine output was 4 liters, net negative 2.1 liters. Weight in the bed scale today is not recorded. GENERAL APPEARANCE: The patient is seen in the bariatric chair, morbidly obese male. HEENT: The extraocular muscles are intact. Pupils are round and reactive to light. Tongue is moist. NECK: Supple. Jugular veins were a little difficult to assess secondary to significant adipose tissue and body habitus but the neck veins did seem elevated. CARDIAC: S1, S2, he has massive edema of the lower extremities that extends all the way up to the thoracic chest wall, 3+ diffusely. RESPIRATORY: There are diminished breath sounds at the bases with bibasilar crackles but he is comfortable on room air. There is no accessory muscle use nor tachypnea. ABDOMEN: Obese. There is a hernia in the midline which is nontender, and there is significant abdominal wall edema and dependent edema in the flanks. MUSCULOSKELETAL: There are bilateral lower extremity venous stasis changes and severe pitting edema of the whole leg and foot that comes up to the abdomen and is diffuse. NEUROLOGICAL: He is awake, alert, oriented x3 and cooperative with physical exam. LABORATORY STUDIES: White count 6.7, hemoglobin 8.7, platelet count 142. Sodium 137, potassium 3.7, bicarbonate 33, BUN 5, creatinine 0.8, albumin 2.8. INPATIENT MEDICATIONS: The patient continues on Lasix drip at 10 mg an hour. He is receiving IV Venofer 200 mg daily for a total of 4 doses. He continues on Midodrine 5 mg p.o. three times daily, Potassium Chloride 40 mEq p.o. three times daily, Spironolactone 100 mg p.o. twice daily. The remainder of medications are unchanged as compared to yesterday. PROBLEMS: 1. Anasarca, diastolic congestive heart failure exacerbation, [id number] - The patient is in severe fluid overload. He is being aggressively diuresed with IV Lasix at 10 mg an hour and is also on Spironolactone 100 mg p.o. twice daily. He is diuresing satisfactorily, and his daily weights have started to downward trend and his urine output in the past 24 hours was 4 liters. I am continuing him on the current diuretic regimen. He still has gross fluid overload and will probably require several days to diurese. 2. Hypokalemia it has improved. He is receiving Spironolactone 100 mg twice daily and he is also on oral potassium supplementation. We will check a potassium level daily given the significant amount of potassium repletion that he is receiving with potassium sparing diuretic. I am also going to check a magnesium level. 3. Iron deficiency anemia he is receiving IV Venofer. His hemoglobin is suboptimal but stable at 8.7, and there is likely also a component of hemodilution given his significant fluid overload. There is no need for a blood transfusion at present. 4. Hypotension in the setting of aggressive diuretic regimen - The patient is receiving Midodrine and blood pressures are acceptable. Systolic has been around 90-110. 5. Chronic kidney disease stage 2 - renal function is stable despite aggressive diuretic regimen. A renal panel will be checked daily while he is being actively diuresed. There is mild alkalosis on the labs today secondary to aggressive diuresis.
[2020-10-01] MEDS: RAMELTEON 8 MG TAB (ROZEREM) PO SCH (20:33)
[2020-10-01 22:00] VITALS: BP 94/63
[2020-10-02] VITALS (7 sets, daily range): BP systolic 84–113; BP diastolic 50–74
[2020-10-02] MEDS: SODIUM CHLORIDE 0.9% INJ 10 ML SYR IV SCH ×2 (05:23→16:58)
[2020-10-02] MEDS: LEVOTHYROXINE 50MCG TABLET (0.05MG) PO SCH (05:30)
[2020-10-02 06:54] LABS: HEMATOCRIT 28.7 % (42.0-52.0); MEAN CORPUSCULAR HGB CONC 31.4 g/dl (32.0-36.5); MEAN CORPUSCULAR VOLUME 95.7 fl (80.0-96.0); PLATELET COUNT, AUTOMATED 145 10^3/uL (150-450)
[2020-10-02 07:12] LABS: ALBUMIN 2.8 GM/DL (3.2-5.2); BLOOD UREA NITROGEN 6 MG/DL (7-18); CALCIUM LEVEL 8.3 MG/DL (8.8-10.2); CARBON DIOXIDE LEVEL 32 MEQ/L (21-32); CHLORIDE LEVEL 100 MEQ/L (98-107); CREATININE FOR GFR 0.84 MG/DL (0.70-1.30); GLOMERULAR FILTRATION RATE > 60.0 (>49); GLUCOSE, FASTING 85 MG/DL (70-100); MAGNESIUM LEVEL 1.8 MG/DL (1.8-2.4); PHOSPHORUS LEVEL 2.6 MG/DL (2.5-4.9); POTASSIUM SERUM 3.4 MEQ/L (3.5-5.1); SODIUM LEVEL 137 MEQ/L (136-145)
[2020-10-02 07:22] LABS: ANISOCYTOSIS 1+; ATYPICAL LYMPH 2 % (0-5); EOSINOPHILS 7 % (0-3); LYMPHOCYTES 20 % (16-44); MONOCYTES 10 % (0-5); MYELOCYTES 1 % (0-0); NEUTROPHILS 60 % (28-66); PLATELET ESTIMATE NORMAL (NORMAL)
[2020-10-02] MEDS: DIMETHICONE 2% OINTMENT(VANICREAM) 70GM TUBE TOP SCH ×2 (08:49→21:24)
[2020-10-02] MEDS: NYSTATIN 100,000 UNITS/GM TOPICAL PWD 15 GM TOP SCH ×2 (08:49→21:24)
[2020-10-02] MEDS: SENOKOT S TAB PO SCH ×2 (09:00→21:25)
[2020-10-02] MEDS: MIRALAX *UNIT DOSE* 17GM PACKET PO SCH (09:00)
[2020-10-02] MEDS: MIDODRINE 2.5 MG TAB PO SCH (09:03)
[2020-10-02] MEDS: BACLOFEN 5MG PER 1/2 TABLET PO SCH ×2 (09:04→21:24)
[2020-10-02] MEDS: FOLIC ACID 1 MG TAB PO SCH (09:04)
[2020-10-02] MEDS: IRON SUCROSE 200 MG in NS 100 ML IV SCH (09:04)
[2020-10-02] MEDS: POTASSIUM CHLORIDE 10 MEQ SR TABLET PO SCH ×2 (09:04→16:58)
[2020-10-02] MEDS: GABAPENTIN 100 MG CAP PO SCH ×2 (09:04→21:25)
[2020-10-02] MEDS: THIAMINE 100 MG TAB PO SCH (09:05)
[2020-10-02] MEDS: SPIRONOLACTONE 50 MG TAB PO SCH ×2 (10:05→16:58)
[2020-10-02] MEDS: SODIUM CHLORIDE 0.9% INJ 10 ML SYR IV PRN ×2 (10:08→23:25)
--- NOTE | 2020-10-02 11:18 | IPNPDOC ---
Subjective Date Seen The patient was seen on 10/02/20. Subjective Chief Complaint/HPI No issues overnight. Making progress with PT. Negative 3 l in the past 24 hours. Objective Physical Examination General Exam: Positive: Alert, Cooperative, No Acute Distress Eye Exam: Positive: PERRLA, Conjunctiva & lids normal, EOMI; Negative: Sclera icteric Neck Exam: Positive: Supple; Negative: JVD, thyromegaly Chest Exam: Positive: Normal air movement, Other (Bi basal crackles) Heart Exam: Positive: Rate Normal, Regular Rhythm, Normal S1, Normal S2; Negative: Murmurs, Rubs Abdomen Exam: Positive: Normal bowel sounds, Soft, Hernia, Other (morbidly obese, severe parietal edema int eh lower abdomen and sides with lymphedematous changes. ) Extremity Exam: Positive: Edema (massive edema up to the thighs with fluid filled blisters); Negative: Clubbing, Cyanosis Skin Exam: Positive: Other skin issue (Bilateral leg with chronic vnous stasis dermatitis and color changes. ) Assessment /Plan Assessment 65-year-old male with morbid obesity, Paroxysmal A. fib, diastolic CHF, large incisional ventral hernia, chronic constipation with history of recurrent small bowel obstruction/ ileus last episode in July 2020, peripheral vascular disease, right-sided staghorn calculus in the kidney with hydronephrosis status post placement of right percutaneous nephroureteral stent on 09/05/2020 , presented to the emergency room on 09/07/2020 for constipation for 7 days abdomen distention. This was managed with aggressive bowel regimen with enemas and suppositories with resolution of constipation. Hospital course was complicated by gross hematuria starting on 09/11/2020. Urology was consulted. Patient had been scheduled for an outpatient percutaneous nephro lithotomy the week prior, however, that procedure had to be canceled because of an UTI, so urology proceeded to do Right percutaneous nephrolithotomy, basket extraction of stones, right ureteroscopy, right antegrade nephrostogram, right ureteral stent placement on 09/13/2020. Patient was off Xarelto till 09/24/2020. Patient was debilitated and with the difficulty in ambulation, so PT had recommended continued rehabilitation. Patient was waiting to go to short-term rehabilitation been on 09/27/2020 he again started having hematuria. Xarelto was stopped and his hematuria resolved resolved. This was discussed with Dr. Live and he recommended to keep holding the Xarelto till his some ureteral stent comes out. At this time he was also noted to be very fluid overloaded with generalized anasarca. He was diagnosed with diastolic CHF exacerbation. His blood pressures were all a soft in the 90s 100s range, so it was decided to start him on Lasix infusion. Crowell was placed for intake, output monitoring. Nephrology was consulted to help with fluid management. Anasarca/ Diastolic CHF exacerbation. On IV lasix and spironolactone, To boost the BP on midodrine. Nephrology consult appreciated. Having good negative balance. Hypokalemia being replaced. Recurrent Hematuria after restarting xarelto this is likely related to the right ureteral stent being in place. Will need to hold xarelto till stent is out resolved at present Nephrolithiasis/staghorn calculus Status post right sided percutaneous nephro ureteral stent placement by IR on 09/05/20 then percutaneous nephrolithotomy and stone extraction and right ureteral stent placement performed 09/13/2020. Completed antibiotics on 09/15/2020, recommendation was to hold Xarelto for 10 days, therefore this was initiated on 09/24/20. Stent is still in the right ureter, recommendation for removal and 4-6 weeks (between 10/15/2020-10/26/2020) as an outpatient in the ur ologists office Constipation/fecal impaction on admission this time resolved continue bowel regimen with daily miralax, senna and colace. Large ventral hernia, not incarcerated stable Left leg numbness Mostly secondary to radiculopathy. Imaging study was negative for fractures. CT of head negative for stroke. Continue gabapentin, baclofen. Paroxysmal atrial fibrillation now in sinus. will stop metoprolol will have to stop xarelto till stent is removed Discussed with Dr Live. Anemia H&H is stable Continue with iron and folate supplementation During this hospitalization he was found to have stool for occult blood positive. Recommend GI follow-up as an outpatient. Hb < 8.0 then will transfuse Depression with insomnia Continue ramelteon Morbid obesity, BMI 56 Complicates care Hypothyroidism Continue levothyroxine Plan/VTE VTE Prophylaxis Ordered?: Yes VTE Exclusion Mechanical Proph: N/A:VTE Prophy Ordered Plan/Urinary Catheter Reason for insertion/continuin: Acute obstruct/retention VS, I&O, 24H, Fishbone Vital Signs/I&O Vital Signs Date Time Temp Pulse Resp B/P (MAP) Pulse Ox O2 Delivery O2 Flow Rate FiO2 10/02/20 06:00 97.4 80 18 113/74 (87) 98 Room Air I&O- Last 24 Hours up to 6 AM 10/02/20 06:00 Intake Total 1330 ml Output Total 2900 ml Balance -1570 ml Laboratory Data 24H LABS Laboratory Tests 2 10/02/20 06:30: Neutrophils (%) (Auto) , Nucleated Red Blood Cells % (auto) 0.0, Anion Gap 5L, Glomerular Filtration Rate > 60.0, Calcium Level 8.3#L, Phosphorus Level 2.6, Magnesium Level 1.8, Albumin 2.8L CBC/BMP Laboratory Tests 10/02/20 06:30 Microbiology Microbiology 09/27/20 Respiratory Virus Panel (PCR) ([facility]) - Final, Complete SHAINA OLIVER MD October 02, 2020 07:21
[2020-10-02] MEDS: MIDODRINE 5 MG TAB PO SCH ×2 (13:18→16:58)
--- NOTE | 2020-10-02 20:45 | IPN ---
PROGRESS NOTE DATE: 09/07/2020 SUBJECTIVE: Mr. Mccarthy is seen and examined this morning at the bedside. He has been hypotensive this morning and his Lasix drip is on hold. He denies any lightheadedness. Denies shortness of breath at rest. He reports that he feels his edema is getting better. He is in net negative fluid status the past several days. OBJECTIVE: VITAL SIGNS: Temperature 97.4, pulse 80, respiratory rate 18, blood pressure 86/52, saturating 98% on room air. INTAKE AND OUTPUT: Intake yesterday was 1380, urine output yesterday was 4450. Weight on the bed scale today is not recorded. GENERAL: The patient is seen lying in bed awake, alert, talking on the phone, and in no apparent distress. HEENT: Extraocular muscles are intact. Tongue is moist. Jugular veins are difficult to assess secondary to body habitus, but do appear elevated. CARDIAC: S1, S2. He has significant edema of the lower extremities 2+ and it extends up to the abdominal wall and thoracic wall as well. RESPIRATORY: Anterior auscultation only symmetric breath sounds without rhonchus or rales. No accessory muscle use. No tachypnea. ABDOMEN: Obese. There is a hernia in the midline that is nontender. There is significant pitting edema in the abdominal flanks and in the dependent areas. MUSCULOSKELETAL: There are bilateral lower extremity venous stasis changes and 2+ edema of the leg and foot and it comes up to the abdomen and up to the flanks and dependent tissues. GENITOURINARY: Shows a Crowell catheter. NEUROLOGIC: He is awake, alert, oriented to person, place, situation, and cooperative with physical examination today. LABORATORY DATA: Show hemoglobin 9.0, white count 7.0, platelets 145,000. Albumin 2.8, sodium 137, potassium 3.4, bicarbonate 32, BUN 6, creatinine 0.8, magnesium 1.8. INPATIENT MEDICATIONS: His Lasix drip is on hold because of hypotension. He received two doses of potassium chloride today 40 mEq for each dose and I subsequently held his further doses of potassium. He completed the Venofer course with four doses of Venofer 200 mg IV given daily. I increased the midodrine to 10 mg three times a day. PROBLEMS: 1. Hypotension. The patient's systolic blood pressure has been in the 80s this morning. He Lasix drip is subsequently held. He is receiving his Spironolactone. I did not hold that as the patient is hypokalemic. I increased the midodrine to 10 mg three times a day in the evening. If his blood pressure remains soft with systolic less than 90, I will give a dose of albumin. He is still in gross fluid overload and requires ongoing diuresis; however, I will hold the Lasix until his blood pressure improves. 2. Anasarca, diastolic congestive heart failure exacerbation acute on chronic. The patient remains in significant fluid overload. Although it is much better over the past several days, he has been in net negative fluid balance and clinically, his edema is lessening. His IV Lasix drip is being held because of hypotension today. He continues on Spironolactone. We will restart Lasix once systolic is greater than 100. 3. Hypokalemia. He continues on Spironolactone 100 mg twice daily. He is also on oral potassium supplementation. He received two doses of potassium chloride 40 mEq today. Given that his Lasix drip is held, I am going to hold further potassium at this time so that he does not become hyperkalemic. 4. Iron deficiency anemia. He received four doses of IV Venofer. Hemoglobin is slowly improving. There is also a component of hemodilution given his significant fluid overload and I expect hemoglobin to improve with correction of his volume status. There is no need for further blood transfusion at present. 5. Chronic kidney disease (CKD) stage II. Renal function is stable despite hypotension and aggressive diuretic regimen. His renal panel is being checked daily while he is being actively diuresed. 6. Hypoalbuminemia. I will give a dose of albumin in the evening if his systolic blood pressure remains less than 90 despite increased dose of midodrine an despite holding Lasix drip. ADDENDUM: At 4:30 p.m., the patient's blood pressure remained at 88/60 despite midodrine 10 mg three times a day and despite Lasix drip being on hold today. Albumin 25% at 25 grams IV x1 dose is ordered.
[2020-10-02] MEDS: RAMELTEON 8 MG TAB (ROZEREM) PO SCH (21:27)
[2020-10-03 01:16] VITALS: BP 88/58
[2020-10-03] MEDS: SODIUM CHLORIDE 0.9% INJ 10 ML SYR IV PRN (01:17)
[2020-10-03] MEDS: LEVOTHYROXINE 50MCG TABLET (0.05MG) PO SCH (05:36)
[2020-10-03] MEDS: SODIUM CHLORIDE 0.9% INJ 10 ML SYR IV SCH ×2 (05:36→17:20)
[2020-10-03 06:00] VITALS: BP 93/48
[2020-10-03 06:25] LABS: HEMATOCRIT 27.9 % (42.0-52.0); HEMOGLOBIN 8.8 g/dl (13.5-17.5); MEAN CORPUSCULAR HEMOGLOBIN 30.4 pg (27.0-33.0); MEAN CORPUSCULAR HGB CONC 31.5 g/dl (32.0-36.5); MEAN CORPUSCULAR VOLUME 96.5 fl (80.0-96.0); PLATELET COUNT, AUTOMATED 148 10^3/uL (150-450); RED BLOOD COUNT 2.89 10^6/uL (4.30-6.10); WHITE BLOOD COUNT 7.5 10^3/uL (4.0-10.0)
[2020-10-03 06:48] LABS: EOSINOPHILS 4 % (0-3); LYMPHOCYTES 18 % (16-44); MONOCYTES 7 % (0-5); NEUTROPHILS 71 % (28-66)
[2020-10-03 06:49] LABS: ANISOCYTOSIS 2+; PLATELET ESTIMATE NORMAL (NORMAL)
[2020-10-03 06:50] LABS: ALBUMIN 3.2 GM/DL (3.2-5.2); BLOOD UREA NITROGEN 7 MG/DL (7-18); CALCIUM LEVEL 8.8 MG/DL (8.8-10.2); CARBON DIOXIDE LEVEL 32 MEQ/L (21-32); CHLORIDE LEVEL 101 MEQ/L (98-107); CREATININE FOR GFR 0.88 MG/DL (0.70-1.30); GLOMERULAR FILTRATION RATE > 60.0 (>49); GLUCOSE, FASTING 89 MG/DL (70-100); PHOSPHORUS LEVEL 2.8 MG/DL (2.5-4.9); POTASSIUM SERUM 4.6 MEQ/L (3.5-5.1); SODIUM LEVEL 139 MEQ/L (136-145)
[2020-10-03] MEDS: TORSEMIDE 10 MG TABLET PO SCH ×3 (09:00→17:00)
[2020-10-03] MEDS: SENOKOT S TAB PO SCH ×2 (09:00→20:11)
[2020-10-03] MEDS: MIRALAX *UNIT DOSE* 17GM PACKET PO SCH (09:00)
[2020-10-03] MEDS: FOLIC ACID 1 MG TAB PO SCH (09:37)
[2020-10-03] MEDS: GABAPENTIN 100 MG CAP PO SCH ×2 (09:37→20:12)
[2020-10-03] MEDS: DIMETHICONE 2% OINTMENT(VANICREAM) 70GM TUBE TOP SCH ×2 (09:37→20:13)
[2020-10-03] MEDS: BACLOFEN 5MG PER 1/2 TABLET PO SCH ×2 (09:37→20:12)
[2020-10-03] MEDS: MIDODRINE 5 MG TAB PO SCH ×3 (09:37→17:19)
[2020-10-03] MEDS: THIAMINE 100 MG TAB PO SCH (09:37)
[2020-10-03] MEDS: NYSTATIN 100,000 UNITS/GM TOPICAL PWD 15 GM TOP SCH ×2 (09:38→20:13)
[2020-10-03] MEDS: SPIRONOLACTONE 50 MG TAB PO SCH (09:39)
--- NOTE | 2020-10-03 12:12 | IPNPDOC ---
Subjective Date Seen The patient was seen on 10/03/20. Subjective Chief Complaint/HPI No complaints this morning. No dizziness or light headedness. Has been working with PT. Objective Physical Examination General Exam: Positive: Alert, Cooperative, No Acute Distress Eye Exam: Positive: PERRLA, Conjunctiva & lids normal, EOMI; Negative: Sclera icteric Neck Exam: Positive: Supple; Negative: JVD, thyromegaly Chest Exam: Positive: Normal air movement, Other (Bi basal crackles) Heart Exam: Positive: Rate Normal, Regular Rhythm, Normal S1, Normal S2; Negative: Murmurs, Rubs Abdomen Exam: Positive: Normal bowel sounds, Soft, Hernia, Other (morbidly obese, severe parietal edema int eh lower abdomen and sides with lymphedematous changes. ) Extremity Exam: Positive: Edema (massive edema up to the thighs with fluid filled blisters); Negative: Clubbing, Cyanosis Skin Exam: Positive: Other skin issue (Bilateral leg with chronic vnous stasis dermatitis and color changes. ) Assessment /Plan Assessment 65-year-old male with morbid obesity, Paroxysmal A. fib, diastolic CHF, large incisional ventral hernia, chronic constipation with history of recurrent small bowel obstruction/ ileus last episode in July 2020, peripheral vascular disease, right-sided staghorn calculus in the kidney with hydronephrosis status post placement of right percutaneous nephroureteral stent on 09/05/2020 , presented to the emergency room on 09/07/2020 for constipation for 7 days abdomen distention. This was managed with aggressive bowel regimen with enemas and suppositories with resolution of constipation. Hospital course was complicated by gross hematuria starting on 09/11/2020. Urology was consulted. Patient had been scheduled for an outpatient percutaneous nephro lithotomy the week prior, however, that procedure had to be canceled because of an UTI, so urology proceeded to do Right percutaneous nephrolithotomy, basket extraction of stones, right ureteroscopy, right antegrade nephrostogram, right ureteral stent placement on 09/13/2020. Patient was off Xarelto till 09/24/2020. Patient was de bilitated and with the difficulty in ambulation, so PT had recommended continued rehabilitation. Patient was waiting to go to short-term rehabilitation been on 09/27/2020 he again started having hematuria. Xarelto was stopped and his hematuria resolved resolved. This was discussed with Dr. Live and he recommended to keep holding the Xarelto till his some ureteral stent comes out. At this time he was also noted to be very fluid overloaded with generalized anasarca. He was diagnosed with diastolic CHF exacerbation. His blood pressures were all a soft in the 90s 100s range, so it was decided to start him on Lasix infusion. Crowell was placed for intake, output monitoring. Nephrology was consu lted to help with fluid management. Anasarca/ Diastolic CHF exacerbation. On IV lasix and spironolactone, Now IV lasix changed to po torsemide To boost the BP on midodrine. Nephrology consult appreciated. Having good negative balance. Will probably need to be held diuretics another day to allow fluid to redistribute and allow SBP to come above 100. Hypokalemia replaced. Recurrent Hematuria after restarting xarelto this is likely related to the right ureteral stent being in place. Will need to hold xarelto till stent is out resolved at present Nephrolithiasis/staghorn calculus Status post right sided percutaneous nephro ureteral stent placement by IR on 09/05/20 then percutaneous nephrolithotomy and stone extraction and right ureteral stent placement performed 09/13/2020. Completed antibiotics on 09/15/2020, recommendation was to hold Xarelto for 10 days, therefore this was initiated on 09/24/20. Stent is still in the right ureter, recommendation for removal and 4-6 weeks (between 10/15/2020-10/26/2020) as an outpatient in the urologists office Constipation/fecal impaction on admission this time resolved continue bowel regimen with daily miralax, senna and colace. Large ventral hernia, not incarcerated stable Left leg numbness Mostly secondary to radiculopathy. Imaging study was negative for fractures. CT of head negative for stroke. Continue gabapentin, baclofen. Paroxysmal atrial fibrillation now in sinus. will stop metoprolol will have to stop xarelto till stent is removed Discussed with Dr Live. Anemia H&H is stable Continue with iron and folate supplementation During this hospitalization he was found to have stool for occult blood positive. Recommend GI follow-up as an outpatient. Hb < 8.0 then will transfuse Depression with insomnia Continue ramelteon Morbid obesity, BMI 56 Complicates care Hypothyroidism Continue levothyroxine Plan/VTE VTE Prophylaxis Ordered?: Yes VTE Exclusion Mechanical Proph: N/A:VTE Prophy Ordered Plan/Urinary Catheter Reason for insertion/continuin: Acute obstruct/retention VS, I&O, 24H, Fishbone Vital Signs/I&O Vital Signs Date Time Temp Pulse Resp B/P (MAP) Pulse Ox O2 Delivery O2 Flow Rate FiO2 10/03/20 06:00 97.5 72 19 93/48 (63) 95 Room Air l I&O- Last 24 Hours up to 6 AM 10/03/20 06:00 Intake Total 1630.0 ml Output Total 2125 ml Balance -495.0 ml Laboratory Data 24H LABS Laboratory Tests 2 10/03/20 05:55: Neutrophils (%) (Auto) , Nucleated Red Blood Cells % (auto) 0.0, Neutrophils 71H, Lymphocytes (Manual) 18, Monocytes (Manual) 7H, Eosinophils (Manual) 4H, Anisocytosis 2+, Platelet Estimate NORMAL, Anion Gap 6L, Glomerular Filtration Rate > 60.0, Calcium Level 8.8, Phosphorus Level 2.8, Albumin 3.2 CBC/BMP Laboratory Tests 10/03/20 05:55 Microbiology Microbiology 09/27/20 Respiratory Virus Panel (PCR) ([facility]) - Final, Complete SHAINA OLIVER MD October 03, 2020 08:27
[2020-10-03 14:00] VITALS: BP 94/60
--- NOTE | 2020-10-03 19:44 | IPN ---
NEPHROLOGY PROGRESS NOTE DATE: 10/03/2020 SUBJECTIVE: Mr. Chappell was seen and examined this morning at the bedside working with the Physical Therapy Team. They got him upright using the bariatric stretcher chair and he was able to stand with the walker. They checked a standing blood pressure and it resulted around 125/70, and the patient had no lightheadedness or dizziness with standing. His Torsemide was held this morning because of soft blood pressure. OBJECTIVE: PHYSICAL EXAMINATION: VITAL SIGNS: Temperature 97.5, pulse 72, respiratory rate 19, blood pressure systolic 90's to 120/diastolic 40's to 70, saturating 95% on room air. INTAKE AND OUTPUT: Intake yesterday was 1.6 liters. Urine output was 3.5 liters, net negative 1.9 liters. Weight in the bed scale today is 147.9 kg which is decreased from prior. GENERAL APPEARANCE: The patient is seen working with the physical therapist. He transitioned from the romelia chair to the walker in the standing position, morbidly obese male, in no apparent respiratory distress. HEENT: The extraocular muscles are intact. Tongue is moist. NECK: Supple. I could not assess his jugular veins today. HEART: Regular, S1, S2. There is 2+ edema. It is much improved as compared to prior days in the legs. LUNGS: Clear to auscultation. No rales or rhonchus. He is seen comfortable on room air. ABDOMEN: Obese and there is abdominal wall edema. There is a ventral hernia, nontender. GENITOURINARY: Crowell catheter. EXTREMITIES: Chronic venous stasis changes and 1-2+ edema which is significantly improved as compared to prior days. NEUROLOGIC: He is oriented x3 and at baseline mentation. LABORATORY STUDIES: White count 7.5, hemoglobin 8.8, platelet count 148. Sodium 139, potassium 4.6, bicarbonate 32, BUN 7, creatinine 0.8, magnesium 1.8. CURRENT INPATIENT MEDICATIONS: The patient's medications were reviewed by myself. His Lasix drip was discontinued and I also discontinued Spironolactone 100 mg twice daily. Instead I ordered Torsemide 30 mg twice daily and Spironolactone 50 mg twice daily. His potassium supplementation was also discontinued. The remainder medications are unchanged as compared to yesterday. PROBLEMS: 1. Decompensated diastolic congestive heart failure [id number] the patient's volume status is much improved. His weight is down by at least 5-7 kg. Clinically his volume status is improved but not optimized. However soft blood pressures have become a recurrent issue, and I have switched him over now to an oral diuretic regimen of Torsemide and Spironolactone. I expect he will continue to be net negative with this regimen. He continues on the 2 liter fluid restriction. 2. Hypotension the patient's systolic blood pressures have been soft. His Lasix drip was held the past day. Today he is switched over to oral Torsemide. I did give him albumin yesterday evening to help with oncotic pressure, and he is also continued on Midodrine. He is not symptomatic. He is not lightheaded. He is not dizzy. Continue Midodrine 10 mg 3 times a day. 3. Hypokalemia - potassium levels have significantly improved from 3.4 yesterday to 4.6 today. It is because he continued to receive Spironolactone while his loop diuretic was held. I have stopped oral potassium supplementation. I have reduced Spironolactone to 50 mg twice daily in view of soft blood pressures and he is going to receive a dose of Torsemide today. We will keep an eye on potassium level with his fluctuating diuretic doses. 4. Chronic kidney disease stage 2 - renal function is stable despite hypotension and despite diuresis. 5. Iron deficiency anemia he has received 4 doses of Venofer. There is also a component of hemodilution. There is no need for a blood transfusion at present. He is FOBT positive. He is going to see GI as an outpatient. He is not on any PPI and I suggest it be started.
[2020-10-03] MEDS: RAMELTEON 8 MG TAB (ROZEREM) PO SCH (20:11)
[2020-10-03 22:00] VITALS: BP 102/54
[2020-10-04 06:00] VITALS: BP 102/64
[2020-10-04] MEDS: SODIUM CHLORIDE 0.9% INJ 10 ML SYR IV SCH ×2 (06:01→18:24)
[2020-10-04] MEDS: LEVOTHYROXINE 50MCG TABLET (0.05MG) PO SCH (06:01)
[2020-10-04 06:58] LABS: HEMATOCRIT 30.4 % (42.0-52.0); HEMOGLOBIN 9.6 g/dl (13.5-17.5); MEAN CORPUSCULAR HEMOGLOBIN 30.7 pg (27.0-33.0); MEAN CORPUSCULAR HGB CONC 31.6 g/dl (32.0-36.5); MEAN CORPUSCULAR VOLUME 97.1 fl (80.0-96.0); PLATELET COUNT, AUTOMATED 158 10^3/uL (150-450); RED BLOOD COUNT 3.13 10^6/uL (4.30-6.10); WHITE BLOOD COUNT 8.1 10^3/uL (4.0-10.0)
[2020-10-04 07:10] LABS: ALBUMIN 3.3 GM/DL (3.2-5.2); BLOOD UREA NITROGEN 8 MG/DL (7-18); CALCIUM LEVEL 9.2 MG/DL (8.8-10.2); CARBON DIOXIDE LEVEL 28 MEQ/L (21-32); CHLORIDE LEVEL 101 MEQ/L (98-107); CREATININE FOR GFR 0.91 MG/DL (0.70-1.30); GLOMERULAR FILTRATION RATE > 60.0 (>49); GLUCOSE, FASTING 82 MG/DL (70-100); PHOSPHORUS LEVEL 3.4 MG/DL (2.5-4.9); POTASSIUM SERUM 3.7 MEQ/L (3.5-5.1); SODIUM LEVEL 137 MEQ/L (136-145)
[2020-10-04 07:16] LABS: ANISOCYTOSIS 2+; ATYPICAL LYMPH 2 % (0-5); BASOPHILS 2 % (0-1); EOSINOPHILS 8 % (0-3); LYMPHOCYTES 30 % (16-44); MONOCYTES 8 % (0-5); NEUTROPHILS 50 % (28-66); PLATELET ESTIMATE NORMAL (NORMAL); POLYCHROMASIA 1+
[2020-10-04] MEDS: BACLOFEN 5MG PER 1/2 TABLET PO SCH (08:06)
[2020-10-04] MEDS: DIMETHICONE 2% OINTMENT(VANICREAM) 70GM TUBE TOP SCH ×2 (08:06→21:43)
[2020-10-04] MEDS: MIDODRINE 5 MG TAB PO SCH ×3 (08:06→16:32)
[2020-10-04] MEDS: MIRALAX *UNIT DOSE* 17GM PACKET PO SCH (08:06)
[2020-10-04] MEDS: NYSTATIN 100,000 UNITS/GM TOPICAL PWD 15 GM TOP SCH ×2 (08:06→21:42)
[2020-10-04] MEDS: TORSEMIDE 10 MG TABLET PO SCH (08:07)
[2020-10-04] MEDS: FOLIC ACID 1 MG TAB PO SCH (08:07)
[2020-10-04] MEDS: SENOKOT S TAB PO SCH ×2 (08:07→21:42)
[2020-10-04] MEDS: GABAPENTIN 100 MG CAP PO SCH ×2 (08:07→21:42)
[2020-10-04] MEDS: THIAMINE 100 MG TAB PO SCH (08:07)
[2020-10-04] MEDS: SPIRONOLACTONE 50 MG TAB PO SCH ×2 (08:10→16:32)
--- NOTE | 2020-10-04 09:58 | IPNPDOC ---
Subjective Date Seen The patient was seen on 10/04/20. Subjective Chief Complaint/HPI Having liquid stools looks very dark green to black . Will check for fecal occult blood. Was positive last time. He is on multiple laxatives. Blood pressures better today. Has been walking with PT. Objective Physical Examination General Exam: Positive: Alert, Cooperative, No Acute Distress Eye Exam: Positive: PERRLA, Conjunctiva & lids normal, EOMI; Negative: Sclera icteric Neck Exam: Positive: Supple; Negative: JVD, thyromegaly Chest Exam: Positive: Normal air movement, Other (Bi basal crackles) Heart Exam: Positive: Rate Normal, Regular Rhythm, Normal S1, Normal S2; Negative: Murmurs, Rubs Abdomen Exam: Positive: Normal bowel sounds, Soft, Hernia, Other (morbidly obese, severe parietal edema int eh lower abdomen and sides with lymphedematous changes. ) Extremity Exam: Positive: Edema (massive edema up to the thighs with fluid filled blisters); Negative: Clubbing, Cyanosis Skin Exam: Positive: Other skin issue (Bilateral leg with chronic vnous stasis dermatitis and color changes. ) Assessment /Plan Assessment 65-year-old male with morbid obesity, Paroxysmal A. fib, diastolic CHF, large incisional ventral hernia, chronic constipation with history of recurrent small bowel obstruction/ ileus last episode in July 2020, peripheral vascular disease, right-sided staghorn calculus in the kidney with hydronephrosis status post placement of right percutaneous nephroureteral stent on 09/05/2020 , presented to the emergency room on 09/07/2020 for constipation for 7 days abdomen distention. This was managed with aggressive bowel regimen with enemas and suppositories with resolution of constipation. Hospital course was complicated by gross hematuria starting on 09/11/2020. Urology was consulted. Patient had been scheduled for an outpatient percutaneous nephro lithotomy the week prior, however, that procedure had to be canceled because of an UTI, so urology proceeded to do Right percutaneous nephrolithotomy, basket extraction of stones, right ureteroscopy, right antegrade nephrostogram, right ureteral stent placement on 09/13/2020. Patient was off Xarelto till 09/24/2020. Patient was debilitated and with the difficulty in ambulation, so PT had recommended continued rehabilitation. Patient was waiting to go to short-term rehabilitation been on 09/27/2020 he again started having hematuria. Xarelto was stopped and his hematuria resolved resolved. This was discussed with Dr. Live and he recommended to keep holding the Xarelto till his some ureteral stent comes out. At this time he was also noted to be very fluid overloaded with generalized anasarca. He was diagnosed with diastolic CHF exacerbation. His blood pressures were all a soft in the 90s 100s range, so it was decided to start him on Lasix infusion. Crowell was placed for intake, output monitoring. Nephrology was consulted to help with fluid management. Anasarca/ Diastolic CHF exacerbation. On IV lasix and spironolactone, Now IV lasix changed to po torsemide To boost the BP on midodrine. Nephrology consult appreciated. Having good negative balance. Will probably need to be held diuretics another day to allow fluid to redistribute and allow SBP to come above 100. Hypokalemia replaced. Recurrent Hematuria after restarting xarelto this is likely related to the right ureteral stent being in place. Will need to hold xarelto till stent is out resolved at present Nephrolithiasis/staghorn calculus Status post right sided percutaneous nephro ureteral stent placement by IR on 09/05/20 then percutaneous nephrolithotomy and stone extraction and right ureteral stent placement performed 09/13/2020. Completed antibiotics on 09/15/2020, recommendation was to hold Xarelto for 10 days, therefore this was initiated on 09/24/20. Stent is still in the right ureter, recommendation for removal and 4-6 weeks (between 10/15/2020-10/26/2020) as an outpatient in the urologists office Constipation/fecal impaction on admission this time resolved continue bowel regimen with daily miralax, senna and colace. Intermittently having liquid stools. Large ventral hernia, not incarcerated stable Left leg numbness Mostly secondary to radiculopathy. Imaging study was negative for fractures. CT of head negative for stroke. Continue gabapentin, baclofen. Paroxysmal atrial fibrillation now in sinus. will stop metoprolol will have to stop xarelto till stent is removed Discussed with Dr Live. Anemia H&H is stable Continue with iron and folate supplementation During this hospitalization he was found to have stool for occult blood positive. Recommend GI follow-up as an outpatient. Hb < 8.0 then will transfuse Depression with insomnia Continue ramelteon Morbid obesity, BMI 56 Complicates care Hypothyroidism Continue levothyroxine Plan/VTE VTE Prophylaxis Ordered?: Yes VTE Exclusion Mechanical Proph: N/A:VTE Prophy Ordered Plan/Urinary Catheter Reason for insertion/continuin: Acute obstruct/retention VS, I&O, 24H, Fishbone Vital Signs/I&O Vital Signs Date Time Temp Pulse Resp B/P (MAP) Pulse Ox O2 Delivery O2 Flow Rate FiO2 10/04/20 06:00 97.6 71 18 102/64 (77) 99 Room Air I&O- Last 24 Hours up to 6 AM 10/04/20 06:00 Intake Total 1080 ml Output Total 1570 ml Balance -490 ml Laboratory Data 24H LABS Laboratory Tests 2 10/04/20 06:30: Neutrophils (%) (Auto) , Nucleated Red Blood Cells % (auto) 0.0, Neutrophils 50, Lymphocytes (Manual) 30, Monocytes (Manual) 8H, Eosinophils (Manual) 8H, Basophils (Manual) 2H, Atypical Lymphocytes 2, Polychromasia 1+, Anisocytosis 2+, Platelet Estimate NORMAL, Anion Gap 8, Glomerular Filtration Rate > 60.0, Calcium Level 9.2, Phosphorus Level 3.4#, Albumin 3.3 CBC/BMP Laboratory Tests 10/04/20 06:30 Microbiology Microbiology 09/27/20 Respiratory Virus Panel (PCR) (ANATOLIY) - Final, Complete SHAINA OLIVER MD October 04, 2020 09:58
[2020-10-04] MEDS ORDERED: metOLazone 5 MG TAB PO ONE (10:45)
[2020-10-04] MEDS ORDERED: POTASSIUM CHLORIDE 10 MEQ SR TABLET PO ONE (10:45)
[2020-10-04 14:00] VITALS: BP 102/63
[2020-10-04] MEDS: TORSEMIDE PO SCH (16:33)
[2020-10-04] MEDS: RAMELTEON 8 MG TAB (ROZEREM) PO SCH (21:42)
[2020-10-04 22:00] VITALS: BP 128/82
[2020-10-05] MEDS: LEVOTHYROXINE 50MCG TABLET (0.05MG) PO SCH (05:18)
[2020-10-05] MEDS: SODIUM CHLORIDE 0.9% INJ 10 ML SYR IV SCH ×2 (05:18→17:03)
[2020-10-05 06:00] VITALS: BP 100/54
[2020-10-05 06:32] LABS: HEMATOCRIT 29.5 % (42.0-52.0); HEMOGLOBIN 9.4 g/dl (13.5-17.5); MEAN CORPUSCULAR HEMOGLOBIN 30.4 pg (27.0-33.0); MEAN CORPUSCULAR HGB CONC 31.9 g/dl (32.0-36.5); MEAN CORPUSCULAR VOLUME 95.5 fl (80.0-96.0); PLATELET COUNT, AUTOMATED 156 10^3/uL (150-450); RED BLOOD COUNT 3.09 10^6/uL (4.30-6.10); WHITE BLOOD COUNT 8.9 10^3/uL (4.0-10.0)
[2020-10-05 07:01] LABS: ALBUMIN 3.1 GM/DL (3.2-5.2); BLOOD UREA NITROGEN 8 MG/DL (7-18); CALCIUM LEVEL 8.8 MG/DL (8.8-10.2); CARBON DIOXIDE LEVEL 31 MEQ/L (21-32); CHLORIDE LEVEL 97 MEQ/L (98-107); CREATININE FOR GFR 0.95 MG/DL (0.70-1.30); GLOMERULAR FILTRATION RATE > 60.0 (>49); GLUCOSE, FASTING 89 MG/DL (70-100); PHOSPHORUS LEVEL 3.8 MG/DL (2.5-4.9); POTASSIUM SERUM 3.2 MEQ/L (3.5-5.1); SODIUM LEVEL 136 MEQ/L (136-145)
[2020-10-05 07:05] LABS: ATYPICAL LYMPH 3 % (0-5); EOSINOPHILS 7 % (0-3); LYMPHOCYTES 16 % (16-44); MONOCYTES 6 % (0-5); NEUTROPHILS 68 % (28-66)
[2020-10-05 07:06] LABS: ANISOCYTOSIS 2+; PLATELET ESTIMATE NORMAL (NORMAL); POLYCHROMASIA 1+
[2020-10-05] MEDS: DIMETHICONE 2% OINTMENT(VANICREAM) 70GM TUBE TOP SCH ×2 (08:12→21:13)
[2020-10-05] MEDS: POTASSIUM CHLORIDE 10 MEQ SR TABLET PO SCH ×2 (08:13→21:13)
[2020-10-05] MEDS: GABAPENTIN 100 MG CAP PO SCH ×2 (08:13→21:13)
[2020-10-05] MEDS: MIDODRINE 5 MG TAB PO SCH ×3 (08:13→16:03)
[2020-10-05] MEDS: THIAMINE 100 MG TAB PO SCH (08:13)
[2020-10-05] MEDS: BACLOFEN 5MG PER 1/2 TABLET PO SCH (08:14)
[2020-10-05] MEDS: FOLIC ACID 1 MG TAB PO SCH (08:14)
[2020-10-05] MEDS: MIRALAX *UNIT DOSE* 17GM PACKET PO SCH (08:14)
[2020-10-05 08:15] VITALS: BP 92/59
[2020-10-05] MEDS: NYSTATIN 100,000 UNITS/GM TOPICAL PWD 15 GM TOP SCH ×2 (08:15→21:13)
[2020-10-05] MEDS: SENOKOT S TAB PO SCH ×2 (08:15→21:12)
--- NOTE | 2020-10-05 10:12 | IPN ---
PROGRESS NOTE DATE: 10/04/2020 SUBJECTIVE: The patient is seen and examined this morning in the [place] chair eating lunch. He offers no complaints. Denies any lightheadedness or dizziness. States he worked with physical therapy and was able to walk 80 feet. Denied any shortness of breath with exertion. His blood pressures today are much better. Systolic has been over 100 for the past three readings. OBJECTIVE: VITAL SIGNS: Temperature 97.6, pulse 75, respiratory rate 20, blood pressure 102/63, saturating 96% on room air. INTAKE AND OUTPUT: Intake yesterday was 1.1 liters. Urine output yesterday was 1.6 liters. Net negative 500 mL. Weight on the bed scale today is not recorded. GENERAL: The patient is seen in the bariatric chair, belted in, eating lunch, morbidly obese male awake, alert, oriented, and in no distress. HEENT: Extraocular muscles are intact. Tongue is moist. I could not assess the neck veins today. HEART: Sounds are regular S1, S2. LUNGS: Show symmetric air entry bilaterally without rales or crackles. He is comfortable on room air. ABDOMEN: Significantly obese. There is ongoing induration of the abdominal wall with pitting edema in the flanks and in the thoracolumbar tissue. Abdomen shows a ventral hernia. GENITOURINARY: Shows indwelling Crowell catheter. EXTREMITIES: Show chronic venous stasis changes bilaterally with ongoing at least 2+ leg edema. NEUROLOGIC: He is oriented, interactive, conversational, and appears to be at baseline. PSYCHIATRIC: Appropriate mood and affect. LABORATORY DATA: White count 8.1, hemoglobin 9.6, platelets 158,000. Sodium 137, potassium 3.7, bicarbonate 28, BUN 8, creatinine 0.9, phosphorus 3.4. Stool occult blood returned back negative. INPATIENT MEDICATIONS: I gave a dose of metolazone 5 mg p.o. x1. He is on Spironolactone 50 mg b.i.d. and torsemide 50 mg p.o. b.i.d. for his diuretic regimen. He also continues on midodrine 10 mg p.o. three times a day. He got a dose of potassium chloride 40 mEq p.o. x1. The remainder of his medications are all unchanged as compared to yesterday. PROBLEMS: 1. Decompensated diastolic congestive heart failure acute on chronic/anasarca. We had to temporarily put a pause on the patient's diuresis because of persistent hypotension with systolic blood pressure in the 80s. His Lasix was held yesterday. He only got one dose of Spironolactone and he did get one dose of torsemide. As expected, his urine output slowed down yesterday. His blood pressures are better now systolic is above 100 and I have written for Spironolactone 50 b.i.d., torsemide 50 b.i.d., and I have also given a dose of metolazone today. If he does not diurese well on oral diuretic regimen, then I will place him back on a Lasix drip tomorrow as I still feel that he has at least another 10-15 pounds of water weight. 2. Hypotension. (INCOMPLETE)/verified/ml
--- NOTE | 2020-10-05 10:48 | IPNPDOC ---
Subjective Date Seen The patient was seen on 10/05/20. Subjective Chief Complaint/HPI Intermittently having greenish loose stools. Occult blood negative. This is likely due to the multiple stool softeners on board. Very good output with high dose oral diuretics yesterday. No fever or chills. Has been able to mobilize more with PT. Objective Physical Examination General Exam: Positive: Alert, Cooperative, No Acute Distress Eye Exam: Positive: PERRLA, Conjunctiva & lids normal, EOMI; Negative: Sclera icteric Neck Exam: Positive: Supple; Negative: JVD, thyromegaly Chest Exam: Positive: Normal air movement, Other (Bi basal crackles) Heart Exam: Positive: Rate Normal, Regular Rhythm, Normal S1, Normal S2; Negative: Murmurs, Rubs Abdomen Exam: Positive: Normal bowel sounds, Soft, Hernia, Other (morbidly obese, severe parietal edema int eh lower abdomen and sides with lymphedematous changes. ) Extremity Exam: Positive: Edema (massive edema up to the thighs with fluid filled blisters); Negative: Clubbing, Cyanosis Skin Exam: Positive: Other skin issue (Bilateral leg with chronic vnous stasis dermatitis and color changes. ) Assessment /Plan Assessment 65-year-old male with morbid obesity, Paroxysmal A. fib, diastolic CHF, large incisional ventral hernia, chronic constipation with history of recurrent small bowel obstruction/ ileus last episode in July 2020, peripheral vascular disease, right-sided staghorn calculus in the kidney with hydronephrosis status post placement of right percutaneous nephroureteral stent on 09/05/2020 , presented to the emergency room on 09/07/2020 for constipation for 7 days abdomen distention. This was managed with aggressive bowel regimen with enemas and suppositories with resolution of constipation. Hospital course was complicated by gross hematuria starting on 09/11/2020. Urology was consulted. Patient had been scheduled for an outpatient percutaneous nephro lithotomy the week prior, however, that procedure had to be canceled because of an UTI, so urology proceeded to do Right percutaneous nephrolithotomy, basket extraction of stones, right ureteroscopy, right antegrade nephrostogram, right ureteral stent placement on 09/13/2020. Patient was off Xarelto till 09/24/2020. Patient was debilitated and with the difficulty in ambulation, so PT had recommended continued rehabilitation. Patient was waiting to go to short-term rehabilitation been on 09/27/2020 he again started having hematuria. Xarelto was stopped and his hematuria resolved resolved. This was discussed with Dr. Live and he recommended to keep holding the Xarelto till his some ureteral stent comes out. At this time he was also noted to be very fluid overloaded with generalized anasarca. He was diagnosed with diastolic CHF exacerbation. His blood pressures were all a soft in the 90s 100s range, so it was decided to start him on Lasix infusion. Crowell was placed for intake, output monitoring. Nephrology was consulted to help with fluid management. Anasarca/ Diastolic CHF exacerbation. Now on a combination of torsemide, spironolactone and metolazone had good response with negative 3L To boost the BP on midodrine. Nephrology consult appreciated. Will contiue high doses of diuretics as long as SBP >100. Hypokalemia replaced. Recurrent Hematuria after restarting xarelto this is likely related to the right ureteral stent being in place. Will need to hold xarelto till stent is out resolved at present Nephrolithiasis/staghorn calculus Status post right sided percutaneous nephro ureteral stent placement by IR on 09/05/20 then percutaneous nephrolithotomy and stone extraction and right ureteral stent placement performed 09/13/2020. Completed antibiotics on 09/15/2020, recommendation was to hold Xarelto for 10 days, therefore this was i nitiated on 09/24/20. Stent is still in the right ureter, recommendation for removal and 4-6 weeks (between 10/15/2020-10/26/2020) as an outpatient in the urologists office Constipation/fecal impaction on admission this time resolved continue bowel regimen with daily miralax, senna and colace. Intermittently having liquid stools. Large ventral hernia, not incarcerated stable Left leg numbness Mostly secondary to radiculopathy. Imaging study was negative for fractures. CT of head negative for stroke. Continue gabapentin, baclofen. Paroxysmal atrial fibrillation now in sinus. will stop metoprolol will have to stop xarelto till stent is removed Discussed with Dr Live. Anemia H&H is stable Continue with iron and folate supplementation During this hospitalization he was found to have stool for occult blood positive. Recommend GI follow-up as an outpatient. Hb < 8.0 then will transfuse Depression with insomnia Continue ramelteon Morbid obesity, BMI 56 Complicates care Hypothyroidism Continue levothyroxine Plan/VTE VTE Prophylaxis Ordered?: Yes VTE Exclusion Mechanical Proph: N/A:VTE Prophy Ordered Plan/Urinary Catheter Reason for insertion/continuin: Acute obstruct/retention VS, I&O, 24H, Fishbone Vital Signs/I&O Vital Signs Date Time Temp Pulse Resp B/P (MAP) Pulse Ox O2 Delivery O2 Flow Rate FiO2 10/05/20 08:15 92/59 (70) 10/05/20 06:00 97.5 61 19 96 Room Air I&O- Last 24 Hours up to 6 AM 10/05/20 06:00 Intake Total 1500 ml Output Total 5975 ml Balance -4475 ml Laboratory Data 24H LABS Laboratory Tests 2 10/05/20 06:13: Neutrophils (%) (Auto) , Nucleated Red Blood Cells % (auto) 0.0, Neutrophils 68H, Lymphocytes (Manual) 16, Monocytes (Manual) 6H, Eosinophils (Manual) 7H, Atypical Lymphocytes 3, Polychromasia 1+, Anisocytosis 2+, Platelet Estimate NORMAL, Anion Gap 8, Glomerular Filtration Rate > 60.0, Calcium Level 8.8, Phosphorus Level 3.8, Albumin 3.1L CBC/BMP Laboratory Tests 10/05/20 06:13 Microbiology Microbiology 10/04/20 Stool Occult Blood (ANATOLIY) - Final, Complete 09/27/20 Respiratory Virus Panel (PCR) (ANATOLIY) - Final, Complete SHAINA OLIVER MD October 05, 2020 08:56
[2020-10-05] MEDS: SPIRONOLACTONE 50 MG TAB PO SCH ×2 (12:41→17:03)
[2020-10-05] MEDS: TORSEMIDE PO SCH ×2 (12:42→17:03)
--- NOTE | 2020-10-05 15:33 | IPN ---
PROGRESS NOTE DATE: 10/05/2020 SUBJECTIVE: The patient is seen and examined this morning at the bedside. He offers no complaint. He denies any shortness of breath. He reports he has been working with physical therapy, but this morning they did not get him up to walk because his systolic blood pressure was less than 100, but the patient denies any lightheadedness or dizziness. He is once again diuresing successfully. OBJECTIVE: VITAL SIGNS: Temperature 97.5, pulse 61, respiratory rate 19, blood pressure systolic 92 to 128, diastolic 59 to 82, saturating 96% to 98% on room air. INTAKE AND OUTPUT: Intake yesterday was 1.5 liters. Urine output yesterday as 2.7 liters. Urine output thus far today is already more than 3.5 liters. Weight on the bed scale today is 147.1 kg. GENERAL: The patient is see eating lunch in the bed with head of the bed elevated, awake, alert, oriented, comfortable, and in no apparent distress. Morbidly obese male. HEENT: Extraocular muscles are intact. Tongue is moist. NECK: Supple. Jugular veins are elevated. HEART: Sounds are regular, S1, S2. There is ongoing 2+ peripheral edema. There is abdominal wall edema and abdominal flank edema. LUNGS: Show symmetric air entry that is diminished at the base and distant due to body habitus. ABDOMEN: Soft and obese with edema in the flanks and there is a ventral hernia. GENITOURINARY: Shows a Crowell catheter. EXTREMITIES: Show chronic venous stasis changes and significant leg edema. NEUROLOGIC: He is at his baseline mentation and cooperative with physical exam. Moves all four extremities on command and at baseline. LABORATORY DATA: White count 8.9, hemoglobin 9.4, platelets 156,000. Sodium 136, potassium 3.2, bicarbonate 31, BUN 8, creatinine 0.9, albumin 3.1. Stool occult blood came back negative. INPATIENT MEDICATIONS: He continues on torsemide 50 mg p.o. b.i.d. along with Spironolactone 50 mg p.o. b.i.d. I note primary team started him on potassium 40 mEq p.o. b.i.d. along with baclofen 5 mg p.o. daily. The remainder of his medications are all unchanged as compared to yesterday. PROBLEMS: 1. Decompensated diastolic congestive heart failure/anasarca. The patient was previously on Lasix drip. We temporarily paused his diuretics because of hypotension. Now his systolic blood pressure has mostly been above 100 with the use of midodrine 10 mg p.o. three times a day and he is now on an oral diuretic regimen of torsemide 50 mg p.o. b.i.d. and Spironolactone 50 mg p.o. b.i.d. He is diuresing well with this. If his urine output slows down, he can also be given metolazone. I am not going to give him any metolazone today as he is hypokalemic and already diuresing well. 2. Hypotension in the setting of aggressive diuresis. Continue midodrine 10 mg three times a day for now. Nursing staff holds his diuretics when his systolic blood pressure is persistently less than 100. 3. Hypokalemia. He is getting potassium supplementation and he is getting Spironolactone. 4. Chronic kidney disease (CKD) stage II. Renal function is stable despite ongoing diuresis and occasionally soft blood pressure. We will keep a close eye on the same. He has a Crowell catheter. His weights are nicely downward trending. 5. Iron deficiency anemia. He has received four doses of Venofer. His hemoglobin is stable in the 9s. He had a repeat fecal occult blood test (FOBT) that is now negative.
[2020-10-05 17:01] VITALS: BP 101/67
[2020-10-05] MEDS: RAMELTEON 8 MG TAB (ROZEREM) PO SCH (21:13)
[2020-10-05 22:00] VITALS: BP 100/68
[2020-10-05 23:22] LABS: BLOOD UREA NITROGEN 10 MG/DL (7-18); CALCIUM LEVEL 8.9 MG/DL (8.8-10.2); CARBON DIOXIDE LEVEL 34 MEQ/L (21-32); CHLORIDE LEVEL 94 MEQ/L (98-107); CREATININE FOR GFR 0.89 MG/DL (0.70-1.30); GLOMERULAR FILTRATION RATE > 60.0 (>49); GLUCOSE, FASTING 94 MG/DL (70-100); POTASSIUM SERUM 3.1 MEQ/L (3.5-5.1); SODIUM LEVEL 135 MEQ/L (136-145)
[2020-10-06 06:00] VITALS: BP 106/74
[2020-10-06] MEDS: SODIUM CHLORIDE 0.9% INJ 10 ML SYR IV SCH ×2 (06:03→15:47)
[2020-10-06] MEDS: LEVOTHYROXINE 50MCG TABLET (0.05MG) PO SCH (06:05)
[2020-10-06] MEDS ORDERED: POTASSIUM CHLORIDE 10 MEQ SR TABLET PO ONE (06:50)
[2020-10-06] MEDS: FOLIC ACID 1 MG TAB PO SCH (09:08)
[2020-10-06] MEDS: MIDODRINE 5 MG TAB PO SCH ×3 (09:08→15:11)
[2020-10-06] MEDS: THIAMINE 100 MG TAB PO SCH (09:08)
[2020-10-06] MEDS: POTASSIUM CHLORIDE 10 MEQ SR TABLET PO SCH ×2 (09:09→21:35)
[2020-10-06] MEDS: SPIRONOLACTONE 50 MG TAB PO SCH ×2 (09:09→15:46)
[2020-10-06] MEDS: SENOKOT S TAB PO SCH ×2 (09:09→21:35)
[2020-10-06] MEDS: MIRALAX *UNIT DOSE* 17GM PACKET PO SCH (09:09)
[2020-10-06] MEDS: BACLOFEN 5MG PER 1/2 TABLET PO SCH (09:09)
[2020-10-06] MEDS: GABAPENTIN 100 MG CAP PO SCH ×2 (09:09→21:34)
[2020-10-06] MEDS: NYSTATIN 100,000 UNITS/GM TOPICAL PWD 15 GM TOP SCH ×2 (09:10→21:36)
[2020-10-06] MEDS: DIMETHICONE 2% OINTMENT(VANICREAM) 70GM TUBE TOP SCH ×2 (09:10→21:36)
--- NOTE | 2020-10-06 09:56 | IPNPDOC ---
Subjective Date Seen The patient was seen on 10/06/20. Subjective Chief Complaint/HPI Patient had net negative balance of 9 liters in the past 24 hours with 10 kgs drop in weight. Will hold torsemide today. Bp holding steady in low 100s, No dizziness or light headedness. I am starting to feel the decrease in the parietal edema. Flanks and abdomen getting softer. Objective Physical Examination General Exam: Positive: Alert, Cooperative, No Acute Distress Eye Exam: Positive: PERRLA, Conjunctiva & lids normal, EOMI; Negative: Sclera icteric Neck Exam: Positive: Supple; Negative: JVD, thyromegaly Chest Exam: Positive: Normal air movement, Other (Bi basal crackles) Heart Exam: Positive: Rate Normal, Regular Rhythm, Normal S1, Normal S2; Negative: Murmurs, Rubs Abdomen Exam: Positive: Normal bowel sounds, Soft, Hernia, Other (morbidly obese, severe parietal edema int eh lower abdomen and sides with lymphedematous changes. ) Extremity Exam: Positive: Edema (massive edema up to the thighs with fluid filled blisters); Negative: Clubbing, Cyanosis Skin Exam: Positive: Other skin issue (Bilateral leg with chronic vnous stasis dermatitis and color changes. ) Assessment /Plan Assessment 65-year-old male with morbid obesity, Paroxysmal A. fib, diastolic CHF, large incisional ventral hernia, chronic constipation with history of recurrent small bowel obstruction/ ileus last episode in July 2020, peripheral vascular disease, right-sided staghorn calculus in the kidney with hydronephrosis status post placement of right percutaneous nephroureteral stent on 09/05/2020 , presented to the emergency room on 09/07/2020 for constipation for 7 days abdomen distention. This was managed with aggressive bowel regimen with enemas and suppositories with resolution of constipation. Hospital course was complicated by gross hematuria starting on 09/11/2020. Urology was consulted. Patient had been scheduled for an outpatient percutaneous nephro lithotomy the week prior, however, that procedure had to be canceled because of an UTI, so urology proceeded to do Right percutaneous nephrolithotomy, basket extraction of stones, right ureteroscopy, right antegrade nephrostogram, right ureteral stent placement on 09/13/2020. Patient was off Xarelto till 09/24/2020. Patient was debilitated and with the difficulty in ambulation, so PT had recommended continued rehabilitation. Patient was waiting to go to short-term rehabilitation been on 09/27/2020 he again started having hematuria. Xarelto was stopped and his hematuria resolved resolved. This was discussed with Dr. Live and he re commended to keep holding the Xarelto till his some ureteral stent comes out. At this time he was also noted to be very fluid overloaded with generalized anasarca. He was diagnosed with diastolic CHF exacerbation. His blood pressures were all a soft in the 90s 100s range, so it was decided to start him on Lasix infusion. Crowell was placed for intake, output monitoring. Nephrology was consulted to help with fluid management. Anasarca/ Diastolic CHF exacerbation. Now on a combination of torsemide, spironolactone and metolazone had good response with negative 3L To boost the BP on midodrine. Nephrology consult appreciated. Will contiue high doses of diuretics as long as SBP >100. Weight down to 136 Kgs/ 300 lbs. Hypokalemia replaced. Recurrent Hematuria after restarting xarelto this is likely related to the right ureteral stent being in place. Will need to hold xarelto till stent is out resolved at present Nephrolithiasis/staghorn calculus Status post right sided percutaneous nephro ureteral stent placement by IR on 09/05/20 then percutaneous nephrolithotomy and stone extraction and right ureteral stent placement performed 09/13/2020. Completed antibiotics on 09/15/2020, recommendation was to hold Xarelto for 10 days, therefore this was initiated on 09/24/20. Stent is still in the right ureter, recommendation for removal and 4-6 weeks (between 10/15/2020-10/26/2020) as an outpatient in the urologists office Constipation/fecal impaction on admission this time resolved continue bowel regimen with daily miralax, senna and colace. Intermittently having liquid stools. Large ventral hernia, not incarcerated stable Left leg numbness Mostly secondary to radiculopathy. Imaging study was negative for fractures. CT of head negative for stroke. Continue gabapentin, baclofen. Paroxysmal atrial fibrillation now in sinus. will stop metoprolol will have to stop xarelto till stent is removed Discussed with Dr Live. Anemia H&H is stable Continue with iron and folate supplementation During this hospitalization he was found to have stool for occult blood positiv e. Recommend GI follow-up as an outpatient. Hb < 8.0 then will transfuse Depression with insomnia Continue ramelteon Morbid obesity, BMI 56 Complicates care Hypothyroidism Continue levothyroxine Plan/VTE VTE Prophylaxis Ordered?: Yes VTE Exclusion Mechanical Proph: N/A:VTE Prophy Ordered Plan/Urinary Catheter Reason for insertion/continuin: Acute obstruct/retention VS, I&O, 24H, Fishbone Vital Signs/I&O Vital Signs Date Time Temp Pulse Resp B/P (MAP) Pulse Ox O2 Delivery O2 Flow Rate FiO2 10/06/20 06:00 97.5 80 20 106/74 (85) 96 Room Air I&O- Last 24 Hours up to 6 AM 10/06/20 06:00 Intake Total 1020 ml Output Total 8775 ml Balance -7755 ml Laboratory Data 24H LABS Laboratory Tests 2 10/05/20 22:35: Anion Gap 7L, Glomerular Filtration Rate > 60.0, Calcium Level 8.9, Magnesium Level 2.0 CBC/BMP Laboratory Tests 10/05/20 22:35 Microbiology Microbiology 10/04/20 Stool Occult Blood (ANATOLIY) - Final, Complete 09/27/20 Respiratory Virus Panel (PCR) (ANATOLIY) - Final, Complete SHAINA OLIVER MD October 06, 2020 09:56
[2020-10-06 12:51] LABS: BLOOD UREA NITROGEN 11 MG/DL (7-18); CALCIUM LEVEL 8.8 MG/DL (8.8-10.2); CARBON DIOXIDE LEVEL 34 MEQ/L (21-32); CHLORIDE LEVEL 94 MEQ/L (98-107); GLOMERULAR FILTRATION RATE > 60.0 (>49); GLUCOSE, FASTING 88 MG/DL (70-100); POTASSIUM SERUM 3.9 MEQ/L (3.5-5.1); SODIUM LEVEL 134 MEQ/L (136-145)
[2020-10-06 14:00] VITALS: BP 105/67
--- NOTE | 2020-10-06 18:12 | IPN ---
NEPHROLOGY PROGRESS NOTE DATE: 10/06/2020 SUBJECTIVE: Mr. Mccarthy is seen this morning on his bedside. He looks quite comfortable and denies any dyspnea or chest pain. He reports significant urine output yesterday with a total urine output of greater than 11 liters. His weight is down to 136 kilograms today, which is 9 kilograms less than yesterday. Patient reports almost a 40 pound weight loss since admission. He has a Crowell catheter, which is draining urine. Patient denies any nausea or vomiting. PHYSICAL EXAMINATION: Temperature 97.5 degrees Fahrenheit, heart rate 80 per minute, respiratory rate 20 per minute, blood pressure 106/74 mmHg, oxygen saturation 96% on room air. HEAD: Atraumatic. NECK: Supple and jugular venous distention (JVD) still mildly elevated. HEART SOUNDS: Regular. LUNGS: Slightly diminished breath sounds.. ABDOMEN: Obese. Soft and nontender. Bowel sounds are normal. EXTREMITIES: Without any cyanosis or clubbing. Lower extremity edema has improved significantly, but still has some edema on his legs and thighs. NEUROLOGIC: He is awake, alert and oriented times three. LABORATORY REVIEW: Today's labs show sodium 134, potassium 3.9, CO2 34, BUN 11, creatinine 1.0, calcium level 8.8, magnesium 2.0. PROBLEMS: 1. Congestive heart failure. Volume status has improved significantly. He had more than 11 liters of urine output yesterday. I have stopped his diuretic today and will reconsider resuming at a smaller dose within the next 48 hours. I feel that he is going to continue diuresing today without any further diuretic need. I will reevaluate him tomorrow and keep him off diuretics today. He is still receiving spironolactone and in view of his hypokalemia, will continue with the same. 2. Hypokalemia. Patient received potassium supplement and has also been on spironolactone 50 mg twice a day. Potassium level has now improved. No further need of potassium supplement today. 3. Hyponatremia. He has mild hyponatremia related to aggressive diuresis. I will monitor without any intervention. 4. Anemia. His anemia has been stable, but without any obvious reason. His iron studies on September 08, 2020 showed an iron level of 26 and saturation 12.4%. Will consider giving him intravenous (IV) iron once his volume status is improved. He should probably have further evaluation as an outpatient with upper and lower endoscopy.
[2020-10-06] MEDS: RAMELTEON 8 MG TAB (ROZEREM) PO SCH (21:36)
[2020-10-06 22:00] VITALS: BP 104/68
[2020-10-07] MEDS: SODIUM CHLORIDE 0.9% INJ 10 ML SYR IV SCH ×2 (05:50→18:24)
[2020-10-07] MEDS: LEVOTHYROXINE 50MCG TABLET (0.05MG) PO SCH (05:50)
[2020-10-07 06:00] VITALS: BP 104/74
[2020-10-07 06:21] LABS: BASO # 0.1 10^3/uL (0.0-0.2); BASO % 0.5 % (0.0-1.0); EOS # 0.5 10^3/uL (0.0-0.5); EOS % 4.9 % (0.0-3.0); HEMATOCRIT 32.2 % (42.0-52.0); HEMOGLOBIN 10.2 g/dl (13.5-17.5); LYMPH # 1.7 10^3/uL (1.5-5.0); LYMPH % 18.4 % (24.0-44.0); MEAN CORPUSCULAR HEMOGLOBIN 30.1 pg (27.0-33.0); MEAN CORPUSCULAR HGB CONC 31.7 g/dl (32.0-36.5); MONO # 1.2 10^3/uL (0.0-0.8); MONO % 12.8 % (2.0-8.0); NEUTROPHILS # 5.9 10^3/uL (1.5-8.5); NEUTROPHILS % 61.7 % (36.0-66.0); PLATELET COUNT, AUTOMATED 176 10^3/uL (150-450); RED BLOOD COUNT 3.39 10^6/uL (4.30-6.10); WHITE BLOOD COUNT 9.5 10^3/uL (4.0-10.0)
[2020-10-07 06:47] LABS: BLOOD UREA NITROGEN 13 MG/DL (7-18); CALCIUM LEVEL 8.9 MG/DL (8.8-10.2); CARBON DIOXIDE LEVEL 32 MEQ/L (21-32); CHLORIDE LEVEL 94 MEQ/L (98-107); CREATININE FOR GFR 1.09 MG/DL (0.70-1.30); GLOMERULAR FILTRATION RATE > 60.0 (>49); GLUCOSE, FASTING 89 MG/DL (70-100); MAGNESIUM LEVEL 2.1 MG/DL (1.8-2.4); POTASSIUM SERUM 3.8 MEQ/L (3.5-5.1); SODIUM LEVEL 133 MEQ/L (136-145)
[2020-10-07] MEDS: SENOKOT S TAB PO SCH ×2 (08:54→20:05)
[2020-10-07] MEDS: BACLOFEN 5MG PER 1/2 TABLET PO SCH (08:54)
[2020-10-07] MEDS: MIDODRINE 5 MG TAB PO SCH ×3 (08:54→16:15)
[2020-10-07] MEDS: GABAPENTIN 100 MG CAP PO SCH ×2 (08:54→20:06)
[2020-10-07] MEDS: THIAMINE 100 MG TAB PO SCH (08:54)
[2020-10-07] MEDS: SPIRONOLACTONE 50 MG TAB PO SCH ×2 (08:54→16:15)
[2020-10-07] MEDS: POTASSIUM CHLORIDE 10 MEQ SR TABLET PO SCH ×2 (08:55→20:05)
[2020-10-07] MEDS: MIRALAX *UNIT DOSE* 17GM PACKET PO SCH (08:55)
[2020-10-07] MEDS: NYSTATIN 100,000 UNITS/GM TOPICAL PWD 15 GM TOP SCH ×2 (08:55→20:06)
[2020-10-07] MEDS: DIMETHICONE 2% OINTMENT(VANICREAM) 70GM TUBE TOP SCH ×2 (08:56→20:06)
[2020-10-07] MEDS: FOLIC ACID 1 MG TAB PO SCH (08:56)
[2020-10-07] MEDS ORDERED: TORSEMIDE 20 MG TAB PO ONE (13:00)
--- NOTE | 2020-10-07 13:40 | IPN ---
NEPHROLOGY PROGRESS NOTE DATE: 10/07/2020 SUBJECTIVE: Mr. Mccarthy was seen this morning on his bedside. He is feeling better and his generalized anasarca is improving. Yesterday, diuretics were held due to excessive diuresis on October 05, 2020. He was still negative by 1.3 liters yesterday. He denies any nausea or vomiting. PHYSICAL EXAMINATION: Temperature 97.4 degrees Fahrenheit, heart rate 72 per minute, respiratory rate 20 per minute, blood pressure 104/74 mmHg, oxygen saturation 94% on room air. HEAD: Atraumatic. NECK: Supple and jugular venous distention (JVD) still moderately elevated. HEART SOUNDS: Regular. LUNGS: Diminished breath sounds. ABDOMEN: Obese with large ventral hernia. Bowel sounds are present. EXTREMITIES: Without cyanosis or clubbing. Edema on his thighs and legs is still present. NEUROLOGIC: He is at his baseline mentation without a focal deficit. LABORATORY DATA: Today's labs show WBC 9.5, hemoglobin 10.2, hematocrit 32.2. Sodium 133, potassium 3.8, CO2 32, BUN 13, creatinine 1.09, calcium 8.9, magnesium 2.1. PROBLEMS: 1. Generalized anasarca. Volume status is improving and he was 1.3 liters negative yesterday without any diuretic. I am going to put him back on torsemide with increased dose of 20 mg twice a day and will give him one dose right now. 2. Hypokalemia. Potassium level has improved and will continue with spironolactone 40 mg twice a day along with potassium supplement. Electrolytes will be checked again tomorrow. 3. Hyponatremia. Mild hyponatremia is related to aggressive diuresis and congestive heart failure. At present, we will continue to diurese him while monitoring his electrolytes. 4. Anemia. His anemia is gradually improving as he is being diuresed. No other intervention is needed at present.
[2020-10-07 14:00] VITALS: BP 97/65
[2020-10-07] MEDS: TORSEMIDE 20 MG TAB PO SCH (16:15)
--- NOTE | 2020-10-07 18:57 | IPNPDOC ---
Subjective Date Seen The patient was seen on 10/07/20. Subjective Chief Complaint/HPI No complaints. Continues to have diuresis with appropriate loss of weight. Objective Physical Examination General Exam: Positive: Alert, Cooperative, No Acute Distress Eye Exam: Positive: PERRLA, Conjunctiva & lids normal, EOMI; Negative: Sclera icteric Neck Exam: Positive: Supple; Negative: JVD, thyromegaly Chest Exam: Positive: Normal air movement, Other (Bi basal crackles) Heart Exam: Positive: Rate Normal, Regular Rhythm, Normal S1, Normal S2; Negative: Murmurs, Rubs Abdomen Exam: Positive: Normal bowel sounds, Soft, Hernia, Other (morbidly obese, severe parietal edema int eh lower abdomen and sides with lymphedematous changes. ) Extremity Exam: Positive: Edema (massive edema up to the thighs with fluid filled blisters); Negative: Clubbing, Cyanosis Skin Exam: Positive: Other skin issue (Bilateral leg with chronic vnous stasis dermatitis and color changes. ) Assessment /Plan Assessment 65-year-old male with morbid obesity, Paroxysmal A. fib, diastolic CHF, large incisional ventral hernia, chronic constipation with history of recurrent small bowel obstruction/ ileus last episode in July 2020, peripheral vascular disease, right-sided staghorn calculus in the kidney with hydronephrosis status post placement of right percutaneous nephroureteral stent on 09/05/2020 , presented to the emergency room on 09/07/2020 for constipation for 7 days abdomen distention. This was managed with aggressive bowel regimen with enemas and suppositories with resolution of constipation. Hospital course was complicated by gross hematuria starting on 09/11/2020. Urology was consulted. Patient had been scheduled for an outpatient percutaneous nephro lithotomy the week prior, however, that procedure had to be canceled because of an UTI, so urology proceeded to do Right percutaneous nephrolithotomy, basket extraction of stones, right ureteroscopy, right antegrade nephrostogram, right ureteral stent placement on 09/13/2020. Patient was off Xarelto till 09/24/2020. Patient was debilitated and with the difficulty in ambulation, so PT had recommended continued rehabilitation. Patient was waiting to go to short-term rehabilitation been on 09/27/2020 he again started having hematuria. Xarelto was stopped and his hematuria resolved resolved. This was discussed with Dr. Live and he recommended to keep holding the Xarelto till his some ureteral stent comes out. At this time he was also noted to be very fluid overloaded with generalized anasarca. He was diagnosed with diastolic CHF exacerbation. His blood pressures were all a soft in the 90s 100s range, so it was decided to start him on Lasix infusion. Crowell was placed for intake, output monitoring. Nephrology was consulted to help with fluid management. Anasarca/ Diastolic CHF exacerbation. Now on a combination of torsemide, spironolactone and metolazone had good response with negative 3L To boost the BP on midodrine. Nephrology consult appreciated. Will continue high doses of diuretics as long as SBP >100. Weight down to 136 Kgs/ 300 lbs. Hypokalemia replaced. Recurrent Hematuria after restarting xarelto this is likely related to the right ureteral stent being in place. Will need to hold xarelto till stent is out resolved at present Nephrolithiasis/staghorn calculus Status post right sided percutaneous nephro ureteral stent placement by IR on 09/05/20 then percutaneous nephrolithotomy and stone extraction and right ureteral stent placement performed 09/13/2020. Completed antibiotics on 09/15/2020, recommendation was to hold Xarelto for 10 days, therefore this was initiated on 09/24/20. Stent is still in the right ureter, recommendation for removal and 4-6 weeks (between 10/15/2020-10/26/2020) as an outpatient in the urologists office Constipation/fecal impaction on admission this time resolved continue bowel regimen with daily miralax, senna and colace. Intermittently having liquid stools. Large ventral hernia, not incarcerated stable Left leg numbness Mostly secondary to radiculopathy. Imaging study was negative for fractures. CT of head negative for stroke. Continue gabapentin, baclofen. Paroxysmal atrial fibrillation now in sinus. will stop metoprolol will have to stop xarelto till stent is removed Discussed with Dr Live. Anemia H&H is stable Continue with iron and folate supplementation During this hospitalization he was found to have stool for occult blood positive. Recommend GI follow-up as an outpatient. Hb < 8.0 then will transfuse Depression with insomnia Continue ramelteon Morbid obesity, BMI 56 Complicates care Hypothyroidism Continue levothyroxine Plan/VTE VTE Prophylaxis Ordered?: Yes VTE Exclusion Mechanical Proph: N/A:VTE Prophy Ordered Plan/Urinary Catheter Reason for insertion/continuin: Acute obstruct/retention VS, I&O, 24H, Fishbone Vital Signs/I&O Vital Signs Date Time Temp Pulse Resp B/P (MAP) Pulse Ox O2 Delivery O2 Flow Rate FiO2 10/07/20 06:00 97.4 72 20 104/74 (84) 94 Room Air I&O- Last 24 Hours up to 6 AM 10/07/20 06:00 Intake Total 1200 ml Output Total 1700 ml Balance -500 ml Laboratory Data 24H LABS Laboratory Tests 2 10/06/20 12:03: Anion Gap 6L, Glomerular Filtration Rate > 60.0, Calcium Level 8.8, Magnesium Level 2.0 10/07/20 05:55: Anion Gap 7L, Glomerular Filtration Rate > 60.0, Calcium Level 8.9, Magnesium Level 2.1, Immature Granulocyte % (Auto) 1.7, Neutrophils (%) (Auto) 61.7, Lymphocytes (%) (Auto) 18.4L, Monocytes (%) (Auto) 12.8H, Eosinophils (%) (Auto) 4.9H, Basophils (%) (Auto) 0.5, Neutrophils # (Auto) 5.9, Lymphocytes # (Auto) 1.7, Monocytes # (Auto) 1.2H, Eosinophils # (Auto) 0.5, Basophils # (Auto) 0.1, Nucleated Red Blood Cells % (auto) 0.0 CBC/BMP Laboratory Tests 10/06/20 12:03 10/07/20 05:55 Microbiology Microbiology 10/04/20 Stool Occult Blood (ANATOLIY) - Final, Complete 09/27/20 Respiratory Virus Panel (PCR) (ANATOLIY) - Final, Complete SHAINA OLIVER MD October 07, 2020 07:13
[2020-10-07] MEDS: RAMELTEON 8 MG TAB (ROZEREM) PO SCH (20:06)
[2020-10-07] MEDS: ACETAMINOPHEN TAB 650MG DOSE (2X325MG) PO PRN (20:07)
[2020-10-07 22:00] VITALS: BP 103/71
[2020-10-08 06:00] VITALS: BP 101/71
[2020-10-08] MEDS: LEVOTHYROXINE 50MCG TABLET (0.05MG) PO SCH (06:19)
[2020-10-08] MEDS: SODIUM CHLORIDE 0.9% INJ 10 ML SYR IV SCH ×2 (06:20→17:29)
[2020-10-08] MEDS: SODIUM CHLORIDE 0.9% INJ 10 ML SYR IV PRN (06:20)
[2020-10-08 06:35] LABS: BASO # 0.1 10^3/uL (0.0-0.2); BASO % 0.7 % (0.0-1.0); EOS # 0.6 10^3/uL (0.0-0.5); EOS % 6.3 % (0.0-3.0); HEMOGLOBIN 10.4 g/dl (13.5-17.5); LYMPH # 1.7 10^3/uL (1.5-5.0); LYMPH % 18.4 % (24.0-44.0); MEAN CORPUSCULAR HEMOGLOBIN 30.5 pg (27.0-33.0); MEAN CORPUSCULAR HGB CONC 31.5 g/dl (32.0-36.5); MEAN CORPUSCULAR VOLUME 96.8 fl (80.0-96.0); MONO # 1.2 10^3/uL (0.0-0.8); MONO % 13.4 % (2.0-8.0); NEUTROPHILS # 5.5 10^3/uL (1.5-8.5); NEUTROPHILS % 59.6 % (36.0-66.0); PLATELET COUNT, AUTOMATED 182 10^3/uL (150-450); RED BLOOD COUNT 3.41 10^6/uL (4.30-6.10); WHITE BLOOD COUNT 9.2 10^3/uL (4.0-10.0)
[2020-10-08 07:03] LABS: BLOOD UREA NITROGEN 15 MG/DL (7-18); CALCIUM LEVEL 8.7 MG/DL (8.8-10.2); CARBON DIOXIDE LEVEL 31 MEQ/L (21-32); CHLORIDE LEVEL 97 MEQ/L (98-107); GLOMERULAR FILTRATION RATE > 60.0 (>49); GLUCOSE, FASTING 88 MG/DL (70-100); MAGNESIUM LEVEL 2.2 MG/DL (1.8-2.4); POTASSIUM SERUM 4.5 MEQ/L (3.5-5.1); SODIUM LEVEL 134 MEQ/L (136-145)
--- NOTE | 2020-10-08 08:11 | IPNPDOC ---
Subjective Date Seen The patient was seen on 10/08/20. Subjective Chief Complaint/HPI No complaints this morning. Objective Physical Examination General Exam: Positive: Alert, Cooperative, No Acute Distress Eye Exam: Positive: PERRLA, Conjunctiva & lids normal, EOMI; Negative: Sclera icteric Neck Exam: Positive: Supple; Negative: JVD, thyromegaly Chest Exam: Positive: Normal air movement, Other (Bi basal crackles) Heart Exam: Positive: Rate Normal, Regular Rhythm, Normal S1, Normal S2; Negative: Murmurs, Rubs Abdomen Exam: Positive: Normal bowel sounds, Soft, Hernia, Other (morbidly obese, severe parietal edema int eh lower abdomen and sides with lymphedematous changes. ) Extremity Exam: Positive: Edema (massive edema up to the thighs with fluid filled blisters); Negative: Clubbing, Cyanosis Skin Exam: Positive: Other skin issue (Bilateral leg with chronic vnous stasis dermatitis and color changes. ) Assessment /Plan Assessment 65-year-old male with morbid obesity, Paroxysmal A. fib, diastolic CHF, large incisional ventral hernia, chronic constipation with history of recurrent small bowel obstruction/ ileus last episode in July 2020, peripheral vascular disease, right-sided staghorn calculus in the kidney with hydronephrosis status post placement of right percutaneous nephroureteral stent on 09/05/2020 , presented to the emergency room on 09/07/2020 for constipation for 7 days abdomen distention. This was managed with aggressive bowel regimen with enemas and suppositories with resolution of constipation. Hospital course was complicated by gross hematuria starting on 09/11/2020. Urology was consulted. Patient had been scheduled for an outpatient percutaneous nephro lithotomy the week prior, however, that procedure had to be canceled because of an UTI, so u stefanymorgan proceeded to do Right percutaneous nephrolithotomy, basket extraction of stones, right ureteroscopy, right antegrade nephrostogram, right ureteral stent placement on 09/13/2020. Patient was off Xarelto till 09/24/2020. Patient was debilitated and with the difficulty in ambulation, so PT had recommended continued rehabilitation. Patient was waiting to go to short-term rehabilitation been on 09/27/2020 he again started having hematuria. Xarelto was stopped and his hematuria resolved resolved. This was discussed with Dr. Live and he recommended to keep holding the Xarelto till his some ureteral stent comes out. At this time he was also noted to be very fluid overloaded with generalized anasarca. He was diagnosed with diastolic CHF exacerbation. His blood pressures were all a soft in the 90s 100s range, so it was decided to start him on Lasix infusion. Crowell was placed for intake, output monitoring. Nephrology was consulted to help with fluid management. Anasarca/ Diastolic CHF exacerbation. Anasarca is improving. Was on a combination of torsemide, spironolactone and metolazone had good response with negative 9 L in one day. So have cut down on diuretics now. To boost the BP he is on midodrine. Nephrology consult appreciated. Will continue high doses of diuretics as long as SBP >100. Weight down to 134 Kgs/ 296 lbs. Hypokalemia replaced. Recurrent Hematuria after restarting xarelto this is likely related to the right ureteral stent being in place. Will need to hold xarelto till stent is out resolved at present Nephrolithiasis/staghorn calculus Status post right sided percutaneous nephro ureteral stent placement by IR on 09/05/20 then percutaneous nephrolithotomy and stone extraction and right ureteral stent placement performed 09/13/2020. Completed antibiotics on 09/15/2020, recommendation was to hold Xarelto for 10 days, therefore this was initiated on 09/24/20. Stent is still in the right ureter, recommendation for removal and 4-6 weeks (between 10/15/2020-10/26/2020) as an outpatient in the urologists office Constipation/fecal impaction on admission this time resolved continue bowel regimen with daily miralax, senna and colace. Intermittently having liquid stools. Large ventral hernia, not incarcerated stable Left leg numbness Mostly secondary to radiculopathy. Imaging study was negative for fractures. CT of head negative for stroke. Continue gabapentin, baclofen. Paroxysmal atrial fibrillation now in sinus. will stop metoprolol will have to stop xarelto till stent is removed Discussed with Dr Live. Chronic Anemia H&H is stable Continue with iron and folate supplementation During this hospitalization he was found to have stool for occult blood positive. Recommend GI follow-up as an outpatient. Hb < 8.0 then will transfuse Depression with insomnia Continue ramelteon Morbid obesity, BMI 49.4 weight has been dropping steadily with diuresis with decreasing anasarca. Complicates care Hypothyroidism Continue levothyroxine Plan/VTE VTE Prophylaxis Ordered?: Yes VTE Exclusion Mechanical Proph: N/A:VTE Prophy Ordered Plan/Urinary Catheter Reason for insertion/continuin: Acute obstruct/retention VS, I&O, 24H, Fishbone Vital Signs/I&O Vital Signs Date Time Temp Pulse Resp B/P (MAP) Pulse Ox O2 Delivery O2 Flow Rate FiO2 10/08/20 06:00 98.1 71 18 101/71 (81) 97 Room Air I&O- Last 24 Hours up to 6 AM 10/08/20 06:00 Intake Total 1625 ml Output Total 1400 ml Balance 225 ml Laboratory Data 24H LABS Laboratory Tests 2 10/08/20 06:23: Immature Granulocyte % (Auto) 1.6, Neutrophils (%) (Auto) 59.6, Lymphocytes (%) (Auto) 18.4L, Monocytes (%) (Auto) 13.4H, Eosinophils (%) (Auto) 6.3H, Basophils (%) (Auto) 0.7, Neutrophils # (Auto) 5.5, Lymphocytes # (Auto) 1.7, Monocytes # (Auto) 1.2H, Eosinophils # (Auto) 0.6H, Basophils # (Auto) 0.1, Nucleated Red Blood Cells % (auto) 0.0, Anion Gap 6L, Glomerular Filtration Rate > 60.0, Calcium Level 8.7L, Magnesium Level 2.2 CBC/BMP Laboratory Tests 10/08/20 06:23 Microbiology Microbiology 10/04/20 Stool Occult Blood (ANATOLIY) - Final, Complete SHAINA OLIVER MD October 08, 2020 08:11
[2020-10-08] MEDS: MIRALAX *UNIT DOSE* 17GM PACKET PO SCH (09:16)
[2020-10-08] MEDS: DIMETHICONE 2% OINTMENT(VANICREAM) 70GM TUBE TOP SCH ×2 (09:16→20:15)
[2020-10-08] MEDS: GABAPENTIN 100 MG CAP PO SCH ×2 (09:16→20:14)
[2020-10-08] MEDS: SPIRONOLACTONE 50 MG TAB PO SCH ×2 (09:16→17:29)
[2020-10-08] MEDS: NYSTATIN 100,000 UNITS/GM TOPICAL PWD 15 GM TOP SCH ×2 (09:16→20:14)
[2020-10-08] MEDS: SENOKOT S TAB PO SCH ×2 (09:17→20:14)
[2020-10-08] MEDS: THIAMINE 100 MG TAB PO SCH (09:17)
[2020-10-08] MEDS: BACLOFEN 5MG PER 1/2 TABLET PO SCH (09:17)
[2020-10-08] MEDS: TORSEMIDE 20 MG TAB PO SCH (09:17)
[2020-10-08] MEDS: POTASSIUM CHLORIDE 10 MEQ SR TABLET PO SCH ×2 (09:17→20:13)
[2020-10-08] MEDS: MIDODRINE 5 MG TAB PO SCH ×3 (09:17→15:28)
[2020-10-08] MEDS: FOLIC ACID 1 MG TAB PO SCH (09:17)
[2020-10-08] MEDS ORDERED: TORSEMIDE 20 MG TAB PO ONE (09:45)
[2020-10-08] MEDS: ACETAMINOPHEN TAB 650MG DOSE (2X325MG) PO PRN (12:12)
--- NOTE | 2020-10-08 16:31 | IPN ---
NEPHROLOGY PROGRESS NOTE DATE: 10/08/2020 SUBJECTIVE: Mr. Mccarthy is seen this morning on his bedside. He is feeling about the same and denies any new complaints since yesterday. His Crowell catheter is draining yellow urine. Yesterday, his urine output was 1500 mL with a negative fluid balance of only 135 mL. His weight is down to 134.6 kilograms today. PHYSICAL EXAMINATION: Temperature 98 degrees Fahrenheit, heart rate 64 per minute, respiratory rate 17 per minute, blood pressure 103/70 mmHg, oxygen saturation 93% on room air. HEAD: Atraumatic. NECK: Supple and jugular venous distention (JVD) difficulty to be assessed. HEART SOUNDS: Regular LUNGS: Diminished breath sounds at bases. ABDOMEN: Obese and nontender. He has a large ventral hernia, which is unchanged. There is edema on the flank area and lateral abdominal wall. EXTREMITIES: Without any cyanosis or clubbing. Thigh edema is present. NEUROLOGIC: He is without a focal deficit. LABORATORY DATA: WBC 9.2, hemoglobin 10.4, hematocrit 33. Sodium 134, potassium 4.5, CO2 31, BUN 15, creatinine 1.1, glucose 88, calcium 8.7. PROBLEMS: 1. Decompensated congestive heart failure. Volume status is gradually improving. We started with torsemide 20 mg twice a day, but he was only negative by less than 150 mL. I am going to give him an extra dose of torsemide 20 mg this morning to make a total dose of 40 mg and then increase the dose to 30 mg twice a day. We will continue with mild negative fluid balance of about 1-2 liters per day now. 2. Hyponatremia. Mild hyponatremia is stable and unchanged for the last 3-4 days. No changes are being made today. 3. Urinary retention. Patient currently has a Crowell catheter, which is draining clear, yellow urine. 4. Generalized weakness and deconditioning. Patient is likely to require subacute rehabilitation. He should be getting out of bed, which he is not, as of yet.
[2020-10-08] MEDS: TORSEMIDE 10 MG TABLET PO SCH (17:29)
[2020-10-08] MEDS: RAMELTEON 8 MG TAB (ROZEREM) PO SCH (20:14)
[2020-10-08] MEDS ORDERED: VANCOMYCIN HCL 1,000 MG, VIAL MATE ADAPTER 1 EACH in NS 250 ML IV ONE ×2 (22:00→23:00)
[2020-10-08] MEDS ORDERED: VANCOMYCIN HCL 2,000 MG in D5W 500 ML IV SCH (22:00)
[2020-10-09 06:00] VITALS: BP 112/63
[2020-10-09] MEDS: SODIUM CHLORIDE 0.9% INJ 10 ML SYR IV SCH ×2 (06:26→17:42)
[2020-10-09] MEDS: LEVOTHYROXINE 50MCG TABLET (0.05MG) PO SCH (06:26)
[2020-10-09] MEDS: SODIUM CHLORIDE 0.9% INJ 10 ML SYR IV PRN (06:27)
[2020-10-09 06:54] LABS: BASO # 0.1 10^3/uL (0.0-0.2); BASO % 0.9 % (0.0-1.0); EOS # 0.4 10^3/uL (0.0-0.5); EOS % 4.9 % (0.0-3.0); HEMATOCRIT 34.4 % (42.0-52.0); HEMOGLOBIN 10.9 g/dl (13.5-17.5); LYMPH # 1.6 10^3/uL (1.5-5.0); LYMPH % 18.4 % (24.0-44.0); MEAN CORPUSCULAR HEMOGLOBIN 30.8 pg (27.0-33.0); MEAN CORPUSCULAR HGB CONC 31.7 g/dl (32.0-36.5); MEAN CORPUSCULAR VOLUME 97.2 fl (80.0-96.0); MONO # 1.1 10^3/uL (0.0-0.8); MONO % 13.2 % (2.0-8.0); NEUTROPHILS # 5.2 10^3/uL (1.5-8.5); NEUTROPHILS % 60.4 % (36.0-66.0); PLATELET COUNT, AUTOMATED 188 10^3/uL (150-450); RED BLOOD COUNT 3.54 10^6/uL (4.30-6.10); WHITE BLOOD COUNT 8.6 10^3/uL (4.0-10.0)
[2020-10-09 07:13] LABS: BLOOD UREA NITROGEN 17 MG/DL (7-18); CALCIUM LEVEL 8.7 MG/DL (8.8-10.2); CARBON DIOXIDE LEVEL 29 MEQ/L (21-32); CHLORIDE LEVEL 98 MEQ/L (98-107); CREATININE FOR GFR 1.08 MG/DL (0.70-1.30); GLOMERULAR FILTRATION RATE > 60.0 (>49); GLUCOSE, FASTING 93 MG/DL (70-100); MAGNESIUM LEVEL 2.3 MG/DL (1.8-2.4); POTASSIUM SERUM 3.8 MEQ/L (3.5-5.1); SODIUM LEVEL 134 MEQ/L (136-145)
[2020-10-09] MEDS: GABAPENTIN 100 MG CAP PO SCH ×2 (08:10→20:10)
[2020-10-09] MEDS: MIRALAX *UNIT DOSE* 17GM PACKET PO SCH (08:10)
[2020-10-09] MEDS: BACLOFEN 5MG PER 1/2 TABLET PO SCH (08:10)
[2020-10-09] MEDS: DIMETHICONE 2% OINTMENT(VANICREAM) 70GM TUBE TOP SCH ×2 (08:10→20:11)
[2020-10-09] MEDS: NYSTATIN 100,000 UNITS/GM TOPICAL PWD 15 GM TOP SCH ×2 (08:10→20:10)
[2020-10-09] MEDS: SPIRONOLACTONE 50 MG TAB PO SCH ×2 (08:11→16:06)
[2020-10-09] MEDS: MIDODRINE 5 MG TAB PO SCH ×3 (08:11→16:05)
[2020-10-09] MEDS: POTASSIUM CHLORIDE 10 MEQ SR TABLET PO SCH ×2 (08:11→20:10)
[2020-10-09] MEDS: TORSEMIDE 10 MG TABLET PO SCH (08:11)
[2020-10-09] MEDS: SENOKOT S TAB PO SCH ×2 (08:11→20:10)
[2020-10-09] MEDS: THIAMINE 100 MG TAB PO SCH (08:11)
[2020-10-09] MEDS: FOLIC ACID 1 MG TAB PO SCH (08:11)
--- NOTE | 2020-10-09 09:19 | IPNPDOC ---
Subjective Date Seen The patient was seen on 10/09/20. Subjective Chief Complaint/HPI No complaints this morning. Eager to work with PT . He tells me that today he wants to try and get out of bed by himself. Objective Physical Examination General Exam: Positive: Alert, Cooperative, No Acute Distress Eye Exam: Positive: PERRLA, Conjunctiva & lids normal, EOMI; Negative: Sclera icteric Neck Exam: Positive: Supple; Negative: JVD, thyromegaly Chest Exam: Positive: Normal air movement, Other (Bi basal crackles) Heart Exam: Positive: Rate Normal, Regular Rhythm, Normal S1, Normal S2; Negative: Murmurs, Rubs Abdomen Exam: Positive: Normal bowel sounds, Soft, Hernia, Other (morbidly obese, severe parietal edema int eh lower abdomen and sides with lymphedematous changes. ) Extremity Exam: Positive: Edema (massive edema up to the thighs with fluid filled blisters); Negative: Clubbing, Cyanosis Skin Exam: Positive: Other skin issue (Bilateral leg with chronic vnous stasis dermatitis and color changes. ) Assessment /Plan Assessment 65-year-old male with morbid obesity, Paroxysmal A. fib, diastolic CHF, large incisional ventral hernia, chronic constipation with history of recurrent small bowel obstruction/ ileus last episode in July 2020, peripheral vascular disease, right-sided staghorn calculus in the kidney with hydronephrosis status post placement of right percutaneous nephroureteral stent on 09/05/2020 , presented to the emergency room on 09/07/2020 for constipation for 7 days abdomen distention. This was managed with aggressive bowel regimen with enemas and suppositories with resolution of constipation. Hospital course was complicated by gross hematuria starting on 09/11/2020. Urology was consulted. Patient had been scheduled for an outpatient percutaneous nephro lithotomy the week prior, however, that procedure had to be canceled because of an UTI, so urology proceeded to do Right percutaneous nephrolithotomy, basket extraction of stones, right ureteroscopy, right antegrade nephrostogram, right ureteral stent placement on 09/13/2020. Patient was off Xarelto till 09/24/2020. Patient was debilitated and with the difficulty in ambulation, so PT had recommended continued rehabilitation. Patient was waiting to go to short-term rehabilitation been on 09/27/2020 he again started having hematuria. Xarelto was stopped and his hematuria resolved resolved. This was discussed with Dr. Live and he recommended to keep holding the Xarelto till his some ureteral stent comes out. At this time he was also noted to be very fluid overloaded with generalized anas arca. He was diagnosed with diastolic CHF exacerbation. His blood pressures were all a soft in the 90s 100s range, so it was decided to start him on Lasix infusion. Crowell was placed for intake, output monitoring. Nephrology was consulted to help with fluid management. Anasarca/ Diastolic CHF exacerbation. Anasarca is improving. Was on a combination of torsemide, spironolactone and metolazone had good response with negative 9 L in one day. So have cut down on diuretics now. To boost the BP he is on midodrine. Nephrology consult appreciated. Will continue high doses of diuretics as long as SBP >100. Weight down to 134 Kgs/ 296 lbs. Hypokalemia replaced. Recurrent Hematuria after restarting xarelto this is likely related to the right ureteral stent being in place. Will need to hold xarelto till stent is out resolved at present Nephrolithiasis/staghorn calculus Status post right sided percutaneous nephro ureteral stent placement by IR on 09/05/20 then percutaneous nephrolithotomy and stone extraction and right double J ureteral stent placement performed 09/13/2020. Completed antibiotics on 09/15/2020, recommendation was to hold Xarelto for 10 days, therefore this was initiated on 09/24/20. Stent is in the right ureter, recommendation for removal and 4-6 weeks (between 10/15/2020-10/26/2020) as an outpatient in the urologists office Constipation/fecal impaction on admission this time resolved continue bowel regimen with daily miralax, senna and colace. Intermittently having liquid stools. Large ventral hernia, not incarcerated stable Left leg numbness Mostly secondary to radiculopathy. Imaging study was negative for fractures. CT of head negative for stroke. Continue gabapentin, baclofen. Paroxysmal atrial fibrillation now in sinus. will stop metoprolol will have to stop xarelto till stent is removed Discussed with Dr Live. Chronic Anemia H&H is stable Continue with iron and folate supplementation During this hospitalization he was found to have stool for occult blood positive. Recommend GI follow-up as an outpatient. Hb < 8.0 then will transfuse Depression with insomnia Continue ramelteon Morbid obesity, BMI 49.4 weight has been dropping steadily with diuresis with decreasing anasarca. Complicates care Hypothyroidism Continue levothyroxine Plan/VTE VTE Prophylaxis Ordered?: Yes VTE Exclusion Mechanical Proph: N/A:VTE Prophy Ordered Plan/Urinary Catheter Reason for insertion/continuin: Acute obstruct/retention VS, I&O, 24H, Fishbone Vital Signs/I&O Vital Signs Date Time Temp Pulse Resp B/P (MAP) Pulse Ox O2 Delivery O2 Flow Rate FiO2 10/09/20 06:00 97.8 76 19 112/63 (79) 95 Room Air I&O- Last 24 Hours up to 6 AM 10/09/20 06:00 Intake Total 1639 ml Output Total 2850 ml Balance -1211 ml Laboratory Data 24H LABS Laboratory Tests 2 10/09/20 06:37: Immature Granulocyte % (Auto) 2.2, Neutrophils (%) (Auto) 60.4, Lymphocytes (%) (Auto) 18.4L, Monocytes (%) (Auto) 13.2H, Eosinophils (%) (Auto) 4.9H, Basophils (%) (Auto) 0.9, Neutrophils # (Auto) 5.2, Lymphocytes # (Auto) 1.6, Monocytes # (Auto) 1.1H, Eosinophils # (Auto) 0.4, Basophils # (Auto) 0.1, Nucleated Red Blood Cells % (auto) 0.0, Anion Gap 7L, Glomerular Filtration Rate > 60.0, Calcium Level 8.7L, Magnesium Level 2.3 CBC/BMP Laboratory Tests 10/09/20 06:37 Microbiology Microbiology 10/04/20 Stool Occult Blood (ANATOLIY) - Final, Complete SHAINA OLIVER MD Oct 09, 2020 09:19
[2020-10-09] MEDS ORDERED: VANCOMYCIN HCL 1,000 MG, VIAL MATE ADAPTER 1 EACH in NS 250 ML IV SCH (11:00)
--- NOTE | 2020-10-09 12:59 | IPN ---
NEPHROLOGY PROGRESS NOTE DATE: 10/09/2020 SUBJECTIVE: Mr. Mccarthy is seen this morning on his bedside. He is feeling better and reports that his Crowell catheter was removed this morning and he is able to urinate. His dyspnea and peripheral edema has improved significantly. He denies any nausea or vomiting. He is waiting for physical therapist to help him get up. PHYSICAL EXAMINATION: Temperature 97.8 degrees Fahrenheit, heart rate 76 per minute and respiratory rate 20 per minute. Blood pressure 112/63 mmHg and oxygen saturation 95% on room air. Head: Atraumatic. Neck: Supple and JVD difficult to assess. Heart: Sounds are regular. Lungs: Diminished breath sounds at bases. Abdomen: Obese, nontender and essentially unchanged. Bowel sounds are present. Extremities: Without any cyanosis or clubbing. Bilateral thigh edema is improving. Neurologically: He is at his baseline mentation without any focal deficit. Intake and output records from yesterday show a negative fluid balance of only 261 mL. His weight is down to 133.9 kg today. LABORATORY DATA: Today's labs show WBC count 8.6, hemoglobin 10.9 and hematocrit 34.4. Sodium 134, potassium 3.8, BUN 17, creatinine 1.08, glucose 93, calcium 8.7. PROBLEMS/PLAN: 1. Congestive heart failure: Volume status has improved significantly and he seems to be responding nicely to current dose of torsemide 30 mg twice a day. I will give him 1 more day and see how he does. We can probably consider increasing the dose to 40 mg twice a day if needed. 2. Acute on chronic kidney disease: Kidney function has been stable and no concerns about further decline in kidney function with diuresis at this point. 3. Hyponatremia, mild: Essentially unchanged. No specific intervention is needed. 4. Anemia: His anemia has improved and stable and does not need any intervention. 5. Generalized weakness and deconditioning: Patient is likely to require subacute rehab. He is currently waiting for a physical therapist to help him get up. 6. Hypokalemia: Patient is already on potassium chloride 40 mEq twice a day and will continue with the same.
[2020-10-09] MEDS: TORSEMIDE 20 MG TAB PO SCH (16:05)
[2020-10-09] MEDS: RAMELTEON 8 MG TAB (ROZEREM) PO SCH (20:10)
[2020-10-10] MEDS: SODIUM CHLORIDE 0.9% INJ 10 ML SYR IV SCH ×2 (05:30→17:05)
[2020-10-10] MEDS: LEVOTHYROXINE 50MCG TABLET (0.05MG) PO SCH (05:30)
[2020-10-10] MEDS: SODIUM CHLORIDE 0.9% INJ 10 ML SYR IV PRN (05:30)
[2020-10-10 06:00] VITALS: BP 101/65
[2020-10-10 07:22] LABS: BASO # 0.1 10^3/uL (0.0-0.2); BASO % 0.8 % (0.0-1.0); EOS # 0.3 10^3/uL (0.0-0.5); EOS % 3.9 % (0.0-3.0); HEMATOCRIT 37.1 % (42.0-52.0); HEMOGLOBIN 11.7 g/dl (13.5-17.5); LYMPH # 1.4 10^3/uL (1.5-5.0); LYMPH % 17.9 % (24.0-44.0); MEAN CORPUSCULAR HEMOGLOBIN 30.3 pg (27.0-33.0); MEAN CORPUSCULAR HGB CONC 31.5 g/dl (32.0-36.5); MEAN CORPUSCULAR VOLUME 96.1 fl (80.0-96.0); MONO # 1.1 10^3/uL (0.0-0.8); NEUTROPHILS # 4.8 10^3/uL (1.5-8.5); PLATELET COUNT, AUTOMATED 170 10^3/uL (150-450); RED BLOOD COUNT 3.86 10^6/uL (4.30-6.10); WHITE BLOOD COUNT 7.8 10^3/uL (4.0-10.0)
[2020-10-10 08:04] LABS: BLOOD UREA NITROGEN 16 MG/DL (7-18); CALCIUM LEVEL 8.9 MG/DL (8.8-10.2); CARBON DIOXIDE LEVEL 27 MEQ/L (21-32); CHLORIDE LEVEL 99 MEQ/L (98-107); CREATININE FOR GFR 1.04 MG/DL (0.70-1.30); GLOMERULAR FILTRATION RATE > 60.0 (>49); GLUCOSE, FASTING 83 MG/DL (70-100); MAGNESIUM LEVEL 2.2 MG/DL (1.8-2.4); POTASSIUM SERUM 3.6 MEQ/L (3.5-5.1); SODIUM LEVEL 135 MEQ/L (136-145)
[2020-10-10] MEDS: POTASSIUM CHLORIDE 10 MEQ SR TABLET PO SCH ×3 (09:35→21:27)
[2020-10-10] MEDS: BACLOFEN 5MG PER 1/2 TABLET PO SCH (09:36)
[2020-10-10] MEDS: THIAMINE 100 MG TAB PO SCH (09:36)
[2020-10-10] MEDS: DIMETHICONE 2% OINTMENT(VANICREAM) 70GM TUBE TOP SCH ×2 (09:36→21:28)
[2020-10-10] MEDS: GABAPENTIN 100 MG CAP PO SCH ×2 (09:36→21:27)
[2020-10-10] MEDS: MIRALAX *UNIT DOSE* 17GM PACKET PO SCH (09:36)
[2020-10-10] MEDS: NYSTATIN 100,000 UNITS/GM TOPICAL PWD 15 GM TOP SCH ×2 (09:36→21:28)
[2020-10-10] MEDS: SENOKOT S TAB PO SCH ×2 (09:36→21:27)
[2020-10-10] MEDS: MIDODRINE 5 MG TAB PO SCH ×3 (09:37→17:04)
[2020-10-10] MEDS: TORSEMIDE 20 MG TAB PO SCH ×2 (09:37→17:04)
[2020-10-10] MEDS: SPIRONOLACTONE 50 MG TAB PO SCH ×2 (09:37→17:04)
[2020-10-10] MEDS: FOLIC ACID 1 MG TAB PO SCH (09:38)
--- NOTE | 2020-10-10 10:34 | IPNPDOC ---
Subjective Date Seen The patient was seen on 10/10/20. Subjective Chief Complaint/HPI No complaints this morning. Crowell was removed yesterday . No issues in voiding after removal. Objective Physical Examination General Exam: Positive: Alert, Cooperative, No Acute Distress Eye Exam: Positive: PERRLA, Conjunctiva & lids normal, EOMI; Negative: Sclera icteric Neck Exam: Positive: Supple; Negative: JVD, thyromegaly Chest Exam: Positive: Normal air movement, Other (Bi basal crackles) Heart Exam: Positive: Rate Normal, Regular Rhythm, Normal S1, Normal S2; Negative: Murmurs, Rubs Abdomen Exam: Positive: Normal bowel sounds, Soft, Hernia, Other (morbidly obese, severe parietal edema int eh lower abdomen and sides with lymphedematous changes. ) Extremity Exam: Positive: Edema (massive edema up to the thighs with fluid filled blisters); Negative: Clubbing, Cyanosis Skin Exam: Positive: Other skin issue (Bilateral leg with chronic vnous stasis dermatitis and color changes. ) Assessment /Plan Assessment 65-year-old male with morbid obesity, Paroxysmal A. fib, diastolic CHF, large in cisional ventral hernia, chronic constipation with history of recurrent small bowel obstruction/ ileus last episode in July 2020, peripheral vascular disease, right-sided staghorn calculus in the kidney with hydronephrosis status post placement of right percutaneous nephroureteral stent on 09/05/2020 , presented to the emergency room on 09/07/2020 for constipation for 7 days abdomen distention. This was managed with aggressive bowel regimen with enemas and suppositories with resolution of constipation. Hospital course was complicated by gross hematuria starting on 09/11/2020. Urology was consulted. Patient had been scheduled for an outpatient percutaneous nephro lithotomy the week prior, however, that procedure had to be canceled because of an UTI, so urology proceeded to do Right percutaneous nephrolithotomy, basket extraction of stones, right ureteroscopy, right antegrade nephrostogram, right ureteral stent placement on 09/13/2020. Patient was off Xarelto till 09/24/2020. Patient was debilitated and with the difficulty in ambulation, so PT had recommended continued rehabilitation. Patient was waiting to go to short-term rehabilitation been on 09/27/2020 he again started having hematuria. Xarelto was stopped and his hematuria resolved resolved. This was discussed with Dr. Live and he recommended to keep holding the Xarelto till his some ureteral stent comes out. At this time he was also noted to be very fluid overloaded with generalized anasarca. He was diagnosed with diastolic CHF exacerbation. His blood pressures were all a soft in the 90s 100s range, so it was decided to start him on Lasix infusion. Crowell was placed for intake, output monitoring. Nephrology was consulted to help with fluid management. Anasarca/ Diastolic CHF exacerbation. Anasarca is improving. Was on a combination of torsemide, spironolactone and metolazone had good response with negative 9 L in one day. So have cut down on diuretics now only on torsemide and spironolactone. To boost the BP he is on midodrine. Nephrology consult appreciated. Will continue high doses of diuretics as long as SBP >100. Weight down to 133 Kgs Hypokalemia replaced. Recurrent Hematuria after restarting xarelto this is likely related to the right ureteral stent being in place. Will need to hold xarelto till stent is out resolved at present Nephrolithiasis/staghorn calculus Status post right sided percutaneous nephro ureteral stent placement by IR on 09/05/20 then percutaneous nephrolithotomy and stone extraction and right double J ureteral stent placement performed 09/13/2020. Completed antibiotics on 09/15/2020, recommendation was to hold Xarelto for 10 days, therefore this was initiated on 09/24/20. Stent is in the right ureter, recommendation for removal and 4-6 weeks (between 10/15/2020-10/26/2020) as an outpatient in the urologists office Constipation/fecal impaction on admission this time resolved continue bowel regimen with daily miralax, senna and colace. Intermittently having liquid stools. Large ventral hernia, not incarcerated stable Left leg numbness Mostly secondary to radiculopathy. Imaging study was negative for fractures. CT of head negative for stroke. Continue gabapentin, baclofen. Paroxysmal atrial fibrillation now in sinus. will stop metoprolol will have to stop xarelto till stent is removed Discussed with Dr Live. Chronic Anemia H&H is stable Continue with iron and folate supplementation During this hospitalization he was found to have stool for occult blood positive. Recommend GI follow-up as an outpatient. Hb < 8.0 then will transfuse Depression with insomnia Continue ramelteon Morbid obesity, BMI 49.4 weight has been dropping steadily with diuresis with decreasing anasarca. Complicates care Hypothyroidism Continue levothyroxine Plan/VTE VTE Prophylaxis Ordered?: Yes VTE Exclusion Mechanical Proph: N/A:VTE Prophy Ordered Plan/Urinary Catheter Reason for insertion/continuin: Acute obstruct/retention VS, I&O, 24H, Fishbone Vital Signs/I&O Vital Signs Date Time Temp Pulse Resp B/P (MAP) Pulse Ox O2 Delivery O2 Flow Rate FiO2 10/10/20 06:00 97.0 76 18 101/65 (77) 98 Room Air I&O- Last 24 Hours up to 6 AM 10/10/20 06:00 Intake Total 1795 ml Output Total 2025 ml Balance -230 ml Laboratory Data 24H LABS Laboratory Tests 2 10/10/20 06:24: Immature Granulocyte % (Auto) 1.4, Neutrophils (%) (Auto) 62.0, Lymphocytes (%) (Auto) 17.9L, Monocytes (%) (Auto) 14.0H, Eosinophils (%) (Auto) 3.9H, Basophils (%) (Auto) 0.8, Neutrophils # (Auto) 4.8, Lymphocytes # (Auto) 1.4L, Monocytes # (Auto) 1.1H, Eosinophils # (Auto) 0.3, Basophils # (Auto) 0.1, Nucleated Red Blood Cells % (auto) 0.0, Anion Gap 9, Glomerular Filtration Rate > 60.0, Calcium Level 8.9, Magnesium Level 2.2 CBC/BMP Laboratory Tests 10/10/20 06:24 Microbiology Microbiology 10/04/20 Stool Occult Blood (ANATOLIY) - Final, Complete SHAINA OLIVER MD Oct 10, 2020 10:34
--- NOTE | 2020-10-10 13:00 | IPN ---
PROGRESS NOTE DATE: 10/10/2020 SUBJECTIVE: Mr. Mccarthy is seen this morning on his bedside. He is sitting in the chair today on his bedside. He is quite excited about the improvement he has made in his weight and fluid status. He has lost about 60 pounds of weight since admission. He is diuresing well with oral diuretic currently. Patient denies any dyspnea, chest pain, nausea or vomiting. OBJECTIVE: VITAL SIGNS: Temperature 97 degrees Fahrenheit, heart rate is 76 per minute and respiratory rate 18 per minute. Blood pressure 101/65 mmHg and oxygen saturation 98% on room air. INTAKE AND OUTPUT: Input and output records from yesterday showed a total intake of 1615 and output 2450 ml with a negative fluid balance of 835 ml. HEAD AND NECK: His head is atraumatic. Neck is supple. JVD is not visible sitting upright. LUNGS: Diminished breath sounds bilaterally. HEART: Heart sounds are regular and distant. ABDOMEN: Obese with a large ventral hernia. Bowel sounds are normal. EXTREMITIES: Chronic stasis changes and hyperpigmentation on lower legs. He still has mild edema on his thighs. LABORATORY DATA: Today's labs showed a WBC count of 7.8, hemoglobin is 11.7 and hematocrit 37.1. Sodium is 135, potassium is 3.6, BUN 16 and creatinine 1.04. PROBLEMS: 1. Congestive heart failure, volume status has improved significantly with about 60 pounds of weight loss since admission. He is currently less than a liter negative per day on current dose of diuretics. I will continue with the same, furosemide 40 mg b.i.d. and Spironolactone 50 mg b.i.d. 2. Hypokalemia, potassium level is trending down and I am going to increase his potassium supplement to 40 mEq t.i.d. 3. Hyponatremia, mild hyponatremia has been stable and likely to improve. At this point will continue with current diuretic dose. 4. Anemia, his anemia has improved with diuresis. All in all, from a renal standpoint Mr. Mccarthy has made significant progress. I have advised him to continue with oral fluid restriction of about 2000 ml per day. He should follow a low sodium diet.
[2020-10-10] MEDS: RAMELTEON 8 MG TAB (ROZEREM) PO SCH (21:27)
[2020-10-10 22:00] VITALS: BP 110/68
[2020-10-11 06:00] VITALS: BP 107/69
[2020-10-11] MEDS: SODIUM CHLORIDE 0.9% INJ 10 ML SYR IV SCH (06:18)
[2020-10-11] MEDS: SODIUM CHLORIDE 0.9% INJ 10 ML SYR IV PRN (06:19)
[2020-10-11] MEDS: LEVOTHYROXINE 50MCG TABLET (0.05MG) PO SCH (06:20)
[2020-10-11 06:42] LABS: BASO # 0.1 10^3/uL (0.0-0.2); EOS # 0.3 10^3/uL (0.0-0.5); EOS % 3.6 % (0.0-3.0); HEMATOCRIT 33.8 % (42.0-52.0); HEMOGLOBIN 10.7 g/dl (13.5-17.5); LYMPH # 1.6 10^3/uL (1.5-5.0); LYMPH % 17.1 % (24.0-44.0); MEAN CORPUSCULAR HEMOGLOBIN 30.1 pg (27.0-33.0); MEAN CORPUSCULAR HGB CONC 31.7 g/dl (32.0-36.5); MEAN CORPUSCULAR VOLUME 94.9 fl (80.0-96.0); MONO # 1.5 10^3/uL (0.0-0.8); MONO % 15.9 % (2.0-8.0); NEUTROPHILS # 5.6 10^3/uL (1.5-8.5); NEUTROPHILS % 60.8 % (36.0-66.0); PLATELET COUNT, AUTOMATED 175 10^3/uL (150-450); RED BLOOD COUNT 3.56 10^6/uL (4.30-6.10)
[2020-10-11 06:52] LABS: WHITE BLOOD COUNT 9.2 10^3/uL (4.0-10.0)
[2020-10-11 07:07] LABS: BLOOD UREA NITROGEN 15 MG/DL (7-18); CALCIUM LEVEL 8.6 MG/DL (8.8-10.2); CARBON DIOXIDE LEVEL 27 MEQ/L (21-32); CHLORIDE LEVEL 100 MEQ/L (98-107); CREATININE FOR GFR 0.99 MG/DL (0.70-1.30); GLOMERULAR FILTRATION RATE > 60.0 (>49); GLUCOSE, FASTING 87 MG/DL (70-100); MAGNESIUM LEVEL 2.3 MG/DL (1.8-2.4); POTASSIUM SERUM 3.7 MEQ/L (3.5-5.1); SODIUM LEVEL 133 MEQ/L (136-145)
[2020-10-11] MEDS: BACLOFEN 5MG PER 1/2 TABLET PO SCH (09:58)
[2020-10-11] MEDS: SENOKOT S TAB PO SCH ×2 (09:58→21:06)
[2020-10-11] MEDS: SPIRONOLACTONE 50 MG TAB PO SCH ×2 (09:58→16:35)
[2020-10-11] MEDS: POTASSIUM CHLORIDE 10 MEQ SR TABLET PO SCH ×3 (09:59→21:05)
[2020-10-11] MEDS: THIAMINE 100 MG TAB PO SCH (09:59)
[2020-10-11] MEDS: FOLIC ACID 1 MG TAB PO SCH (09:59)
[2020-10-11] MEDS: TORSEMIDE 20 MG TAB PO SCH ×2 (09:59→16:35)
[2020-10-11] MEDS: GABAPENTIN 100 MG CAP PO SCH ×2 (09:59→21:05)
[2020-10-11] MEDS: MIRALAX *UNIT DOSE* 17GM PACKET PO SCH (10:00)
[2020-10-11] MEDS: DIMETHICONE 2% OINTMENT(VANICREAM) 70GM TUBE TOP SCH ×2 (10:00→21:05)
[2020-10-11] MEDS: MIDODRINE 5 MG TAB PO SCH ×3 (10:00→15:29)
[2020-10-11] MEDS: NYSTATIN 100,000 UNITS/GM TOPICAL PWD 15 GM TOP SCH ×2 (10:00→21:05)
--- NOTE | 2020-10-11 11:56 | IPN ---
PROGRESS NOTE DATE: 10/11/2020 SUBJECTIVE: Mr. Mccarthy is seen this morning on his bedside. He is laying in the bed as usual. Yesterday, he did get up in the chair on the bedside. He reports that he worked with the physical therapist and was able to walk up to 100 feet. He does not want to go to rehab but wants to go home. OBJECTIVE: VITAL SIGNS: Temperature 97.4 degrees Fahrenheit, heart rate 75 per minute and respiratory rate 16 per minute. Blood pressure 107/69 mmHg and oxygen saturation 93% on room air. HEAD AND NECK: Head is atraumatic. Neck is supple. JVD still seems to be moderately elevated although difficult to be assessed. HEART: Heart sounds are regular. LUNGS: Clear to auscultation. ABDOMEN: Obese and nontender. A large ventral hernia is unchanged. Bowel sounds are normal. EXTREMITIES: Without any cyanosis or clubbing. Edema on his thighs is gradually improving but still present. NEUROLOGIC: He is awake, alert and grossly intact without any focal deficit. LABORATORY DATA: Today's labs shows a WBC count of 9.2, hemoglobin 10.7 and hematocrit 33.8. Sodium 133, potassium 3.7, CO2 27, BUN 15 and creatinine 0.99. PROBLEMS: 1. Congestive heart failure/hypervolemia, volume status is improving nicely and he is losing between 1 and 2 pounds of weight a day. At present, I would recommend to continue with current diuretics including torsemide 40 mg b.i.d. and spironolactone 50 mg b.i.d. 2. Hypokalemia, potassium level is slightly improved. Yesterday, I increased his potassium supplement to 40 mEq t.i.d. and will continue with the same. 3. Hyponatremia, mild hyponatremia related to congestive heart failure and aggressive diuresis. His sodium level has been between 133 and 135 for the last five days. No changes are being made today. 4. Anemia, his anemia has been stable and does not need any urgent intervention. 5. Generalized deconditioning and weakness. Patient wants to go home and does not wish to go for rehab. He wants to continue working with the physical therapist.
--- NOTE | 2020-10-11 12:11 | IPNPDOC ---
Subjective Date Seen The patient was seen on 10/11/20. Subjective Chief Complaint/HPI Working with PT. He is very motivated. He has progress a lot with his walking. His main issue remains standing up from sitting position. Once he is up then he can walk. Objective Physical Examination General Exam: Positive: Alert, Cooperative, No Acute Distress Eye Exam: Positive: PERRLA, Conjunctiva & lids normal, EOMI; Negative: Sclera icteric Neck Exam: Positive: Supple; Negative: JVD, thyromegaly Chest Exam: Positive: Normal air movement, Other (Bi basal crackles) Heart Exam: Positive: Rate Normal, Regular Rhythm, Normal S1, Normal S2; Negative: Murmurs, Rubs Abdomen Exam: Positive: Normal bowel sounds, Soft, Hernia, Other (morbidly obese, parietal edema in the lower abdomen and sides with lymphedematous changes improving) Extremity Exam: Positive: Swelling (edema around the upper thighs); Negative: Clubbing, Cyanosis, Edema Skin Exam: Positive: Other skin issue (Bilateral leg with chronic vnous stasis dermatitis and color changes. ) Psych Exam: Positive: Memory Intact, Oriented x 3 Assessment /Plan Assessment 65-year-old male with morbid obesity, Paroxysmal A. fib, diastolic CHF, large incisional ventral hernia, chronic constipation with history of recurrent small bowel obstruction/ ileus last episode in July 2020, peripheral vascular disease, right-sided staghorn calculus in the kidney with hydronephrosis status post placement of right percutaneous nephroureteral stent on 09/05/2020 , presented to the emergency room on 09/07/2020 for constipation for 7 days abdomen distention. This was managed with aggressive bowel regimen with enemas and suppositories with resolution of constipation. Hospital course was complicated by gross hematuria starting on 09/11/2020. Urology was consulted. Patient had been scheduled for an outpatient percutaneous nephro lithotomy the week prior, however, that procedure had to be canceled because of an UTI, so urology proceeded to do Right percutaneous nephrolithotomy, basket extraction of stones, right ureteroscopy, right antegrade nephrostogram, right ureteral stent placement on 09/13/2020. Patient was off Xarelto till 09/24/2020. Patient was debilitated and with the difficulty in ambulation, so PT had recommended continued rehabilitation. Patient was waiting to go to short-term rehabilitation been on 09/27/2020 he again started having hematuria. Xarelto was stopped and his hematuria resolved resolved. This was discussed with Dr. Live and he recommended to keep holding the Xarelto till his some ureteral stent comes out. At this time he was also noted to be very fluid overloaded with generalized an asarca. He was diagnosed with diastolic CHF exacerbation. His blood pressures were all a soft in the 90s 100s range, so it was decided to start him on Lasix infusion. Crowell was placed for intake, output monitoring. Nephrology was consulted to help with fluid management. Anasarca/ Diastolic CHF exacerbation. Anasarca is improving. Was on a combination of torsemide, spironolactone and metolazone had good response with negative 9 L in one day. So have cut down on diuretics now only on torsemide 40 bid and spironolactone 50 bid. To boost the BP he is on midodrine. Nephrology consult appreciated. Will continue high doses of diuretics as long as SBP >100. Weight down to 133 Kgs Hypokalemia replaced. Recurrent Hematuria after restarting xarelto this is likely related to the right ureteral stent being in place. Will need to hold xarelto till stent is out resolved at present Nephrolithiasis/staghorn calculus Status post right sided percutaneous nephro ureteral stent placement by IR on 09/05/20 then percutaneous nephrolithotomy and stone extraction and right double J ureteral stent placement performed 09/13/2020. Completed antibiotics on 09/15/2020, recommendation was to hold Xarelto for 10 days, therefore this was initiated on 09/24/20. Stent is in the right ureter, recommendation for removal and 4-6 weeks (between 10/15/2020-10/26/2020) as an outpatient in the urologists office Constipation/fecal impaction on admission this time resolved continue bowel regimen with daily miralax, senna and colace. Intermittently having liquid stools. Large ventral hernia, not incarcerated stable Left leg numbness Mostly secondary to radiculopathy. Imaging study was negative for fractures. CT of head negative for stroke. Continue gabapentin, baclofen. Paroxysmal atrial fibrillation now in sinus. will stop metoprolol will have to stop xarelto till stent is removed Discussed with Dr Live. Chronic Anemia H&H is stable Continue with iron and folate supplementation During this hospitalization he was found to have stool for occult blood positive. Recommend GI follow-up as an outpatient. Hb < 8.0 then will transfuse Depression with insomnia Continue ramelteon Morbid obesity, BMI 49.4 weight has been dropping steadily with diuresis with decreasing anasarca. Complicates care Hypothyroidism Continue levothyroxine Plan/VTE VTE Prophylaxis Ordered?: Yes VTE Exclusion Mechanical Proph: N/A:VTE Prophy Ordered Plan/Urinary Catheter Reason for insertion/continuin: Acute obstruct/retention VS, I&O, 24H, Fishbone Vital Signs/I&O Vital Signs Date Time Temp Pulse Resp B/P (MAP) Pulse Ox O2 Delivery O2 Flow Rate FiO2 10/11/20 06:00 97.4 75 16 107/69 (82) 93 Room Air I&O- Last 24 Hours up to 6 AM 10/11/20 06:00 Intake Total 1925 ml Output Total 1400 ml Balance 525 ml Laboratory Data 24H LABS Laboratory Tests 2 10/11/20 06:04: Immature Granulocyte % (Auto) 1.6, Neutrophils (%) (Auto) 60.8, Lymphocytes (%) (Auto) 17.1L, Monocytes (%) (Auto) 15.9H, Eosinophils (%) (Auto) 3.6H, Basophils (%) (Auto) 1.0, Neutrophils # (Auto) 5.6, Lymphocytes # (Auto) 1.6, Monocytes # (Auto) 1.5H, Eosinophils # (Auto) 0.3, Basophils # (Auto) 0.1, Nucleated Red Blood Cells % (auto) 0.0, Anion Gap 6L, Glomerular Filtration Rate > 60.0, Calcium Level 8.6L, Magnesium Level 2.3 CBC/BMP Laboratory Tests 10/11/20 06:04 Microbiology Microbiology 10/04/20 Stool Occult Blood (ANATOLIY) - Final, Complete SHAINA OLIVER MD Oct 11, 2020 12:11
[2020-10-11 14:00] VITALS: BP 100/58
[2020-10-11] MEDS ORDERED: NYST10006 TOP (17:19)
[2020-10-11] MEDS ORDERED: FOLI1TAB11 PO (17:19)
[2020-10-11] MEDS ORDERED: ACET1TAB55 PO (17:19)
[2020-10-11] MEDS ORDERED: TORS20TA2 PO (17:19)
[2020-10-11] MEDS ORDERED: SENN-52 PO (17:19)
[2020-10-11] MEDS ORDERED: THIA100TA PO (17:19)
[2020-10-11] MEDS ORDERED: MOM30SS2 PO (17:19)
[2020-10-11] MEDS ORDERED: ALDA50TA2 PO (17:19)
[2020-10-11] MEDS ORDERED: NEUR100C PO (17:19)
[2020-10-11] MEDS ORDERED: KLOR10TA76 PO (17:19)
[2020-10-11] MEDS ORDERED: LEVO30TA PO (17:19)
[2020-10-11] MEDS ORDERED: OXYB5TAB10 PO (17:19)
[2020-10-11] MEDS ORDERED: MIDO5TA PO (17:19)
[2020-10-11] MEDS: RAMELTEON 8 MG TAB (ROZEREM) PO SCH (21:05)
[2020-10-11 22:00] VITALS: BP 115/69
[2020-10-12] MEDS: LEVOTHYROXINE 50MCG TABLET (0.05MG) PO SCH (05:28)
[2020-10-12 05:35] VITALS: BP 113/71
[2020-10-12 06:41] LABS: HEMATOCRIT 35.2 % (42.0-52.0); HEMOGLOBIN 11.3 g/dl (13.5-17.5); MEAN CORPUSCULAR HGB CONC 32.1 g/dl (32.0-36.5); MEAN CORPUSCULAR VOLUME 96.7 fl (80.0-96.0); PLATELET COUNT, AUTOMATED 181 10^3/uL (150-450); RED BLOOD COUNT 3.64 10^6/uL (4.30-6.10); WHITE BLOOD COUNT 7.3 10^3/uL (4.0-10.0)
[2020-10-12 07:00] LABS: BLOOD UREA NITROGEN 16 MG/DL (7-18); CALCIUM LEVEL 8.3 MG/DL (8.8-10.2); CARBON DIOXIDE LEVEL 27 MEQ/L (21-32); CHLORIDE LEVEL 99 MEQ/L (98-107); CREATININE FOR GFR 1.07 MG/DL (0.70-1.30); GLOMERULAR FILTRATION RATE > 60.0 (>49); GLUCOSE, FASTING 99 MG/DL (70-100); MAGNESIUM LEVEL 2.4 MG/DL (1.8-2.4); POTASSIUM SERUM 3.7 MEQ/L (3.5-5.1); SODIUM LEVEL 134 MEQ/L (136-145)
[2020-10-12 07:17] LABS: EOSINOPHILS 3 % (0-3); LYMPHOCYTES 19 % (16-44); METAMYELOCYTES 1 % (0-0); MONOCYTES 4 % (0-5); NEUTROPHILS 73 % (28-66); PLATELET ESTIMATE NORMAL (NORMAL)
--- NOTE | 2020-10-12 10:00 | DS.PDOC ---
Discharge Summary General Date of Admission Sep 07, 2020 at 19:48 Date of Discharge 10/12/20 Discharge Summary PROCEDURES PERFORMED DURING STAY: Right percutaneous nephrolithotomy, basket extraction of stones, right ureteroscopy, right antegrade nephrostogram, right ureteral stent placement on 09/13/2020. DISCHARGE DIAGNOSES: Anasarca/ Diastolic CHF exacerbation. Chronic hypertension Nephrolithiasis/ Right staghorn calculus that is post right percutaneous nephro lithotomy basket extraction of stones and placement of right ureteral stent Recurrent hematuria after resuming Xarelto Chronic Constipation/ fecal impaction , resolved Hypokalemia Large ventral hernia, not incarcerated Paroxysmal atrial fibrillation not on anticoagulation due to recurrent hematuria Chronic anemia Morbid obesity Hypothyroid Insomnia Peripheral vascular disease and chronic venostasis History of left hip replacement in the past COMPLICATIONS/CHIEF COMPLAINT: Nephrolithiasis. HOSPITAL COURSE: 65-year-old male with morbid obesity, Paroxysmal A. fib, diastolic CHF, large ventral hernia, chronic constipation with history of recurrent small bowel obstruction/ ileus last episode in July 2020, peripheral vascular disease, right-sided staghorn calculus in the kidney with hydronephrosis status post placement of right percutaneous nephroureteral stent on 09/05/2020 , presented to the emergency room on 09/07/2020 for constipation for 7 days and abdomen distention. This was managed with aggressive bowel regimen with enemas and suppositories with resolution of constipation. Hospital course was complicated by gross hematuria starting on 09/11/2020. Urology was consulted. Patient had been scheduled for an outpatient percutaneous nephro lithotomy the week prior, however, that procedure had to be canceled because of an UTI, so urology proceeded to do Right percutaneous nephrolithotomy, basket extraction of stones, right ureteroscopy, right antegrade nephrostogram, right ureteral stent placement on 09/13/2020. Patient was off Xarelto till 09/24/2020. Patient was debilitated and with the difficulty in ambulation, so PT had recommended continued rehabilitation. Patient was waiting to go to short-term rehabilitation. On 09/27/2020 he again started having hematuria. Xarelto was stopped and his hematuria resolved resolved. This was discussed with Dr. Live and he recommended to keep holding the Xarelto till his some ureteral stent comes out. At this time he was also noted to be very fluid overloaded with generalized anasarca. He was diagnosed with diastolic CHF exacerbation. His blood pressures were all a soft in the 90s 100s range, so it was decided to start him on Lasix infusion. Crowell was placed for intake, output monitoring. Nephrology was consulted to help with fluid management. With aggressive diuresis he has lost about 65 lbs in the past 2 weeks with marked improvement in his anasarca. He has been able to mobilize better and has been walking more. His main problem is getting out of bed and standing up from sitting position. once he is up he is able to walk much longer distances with his walker without loss of balance. Anasarca/ Diastolic CHF exacerbation. Anasarca is improving. Was on a combination of torsemide, spironolactone and metolazone had good response with negative 9 L in one day. So have cut down on diuretics now only on torsemide 40 bid and spironolactone 50 bid. To boost the BP he is on midodrine. Nephrology consult appreciated. Will continue high doses of diuretics as long as SBP >100. Weight down to 133 Kgs Follow up with Nephrology . Hypokalemia replaced. Recurrent Hematuria after restarting xarelto this is likely related to the right ureteral stent being in place. Will need to hold xarelto till stent is out resolved at present Nephrolithiasis/ Right staghorn calculus Status post right sided percutaneous nephro ureteral stent placement by IR on 09/05/20 then percutaneous nephrolithotomy and stone extraction and right double J ureteral stent placement performed 09/13/2020. Completed antibiotics on 09/15/2020, recommendation was to hold Xarelto for 10 days, therefore this was initiated on 09/24/20. However again started having hematuria so xarelto was stopped to be restarted after ureteral stent is out. Stent is in the right ureter, recommendation for removal and 4-6 weeks (between 10/15/2020-10/26/2020) as an outpatient in the urologists office Constipation/fecal impaction on admission this time resolved continue bowel regimen with daily miralax, senna and colace. Intermittently having liquid stools. Large ventral hernia, not incarcerated stable Left leg numbness Mostly secondary to radiculopathy. Imaging study was negative for fractures. CT of head negative for stroke. Continue gabapentin, baclofen. Paroxysmal atrial fibrillation now in sinus. will stop metoprolol will have to stop xarelto till stent is removed Discussed with Dr Live. Chronic Anemia H&H is stable Continue with iron and folate supplementation During this hospitalization he was found to have stool for occult blood positive. Recommend GI follow-up as an outpatient. Hb < 8.0 then will transfuse Depression with insomnia Continue ramelteon Morbid obesity, BMI 49 weight has been dropping steadily with diuresis with decreasing anasarca. Complicates care Hypothyroidism Continue levothyroxine DISCHARGE MEDICATIONS: Please see below. ALLERGIES: Please see below. PHYSICAL EXAMINATION ON DISCHARGE: VITAL SIGNS: Please see below. General Exam: Positive: Alert, Cooperative, No Acute Distress Eye Exam: Positive: PERRLA, Conjunctiva & lids normal, EOMI; Negative: Sclera icteric Neck Exam: Positive: Supple; Negative: JVD, thyromegaly Chest Exam: Positive: Normal air movement, Other (Bi basal crackles) Heart Exam: Positive: Rate Normal, Regular Rhythm, Normal S1, Normal S2; Negative: Murmurs, Rubs Abdomen Exam: Positive: Normal bowel sounds, Soft, Hernia, Other (morbidly obese, parietal edema in the lower abdomen and sides with lymphedematous changes improving) Extremity Exam: Positive: Swelling (edema around the upper thighs); Negative: Clubbing, Cyanosis, Edema Skin Exam: Positive: Other skin issue (Bilateral leg with chronic vnous stasis dermatitis and color changes. ) Psych Exam: Positive: Memory Intact, Oriented x 3 LABORATORY DATA: Please see below. ACTIVITY: [As tolerated]. DIET: As tolerated. 2 l fluid restriction. DISPOSITION: [facility] D/T Rehab Facility. DISCHARGE INSTRUCTIONS: Follow up Dr Live in [address] An in 2 weeks. Weekly weights to assess for continuing diuresis. Target dry weight is 270 to 280 lbs. DISCHARGE CONDITION: [Stable]. TIME SPENT ON DISCHARGE: 40 minutes. Vital Signs/I&Os Vital Signs Date Time Temp Pulse Resp B/P (MAP) Pulse Ox O2 Delivery O2 Flow Rate FiO2 10/12/20 05:35 97.9 78 18 113/71 (85) 99 Room Air I&O- Last 24 Hours up to 6 AM 10/12/20 06:00 Intake Total 2010 ml Output Total 2245 ml Balance -235 ml Laboratory Data Labs 24H Laboratory Tests 2 6/3/21 15:23: Coronavirus (COVID-19)(PCR) NEGATIVE 10/12/20 06:26: Neutrophils (%) (Auto) , Nucleated Red Blood Cells % (auto) 0.0, Neutrophils 73H, Lymphocytes (Manual) 19, Monocytes (Manual) 4, Eosinophils (Manual) 3, Met amyelocytes 1H, Red Blood Cell Morphology NORMAL, Platelet Estimate NORMAL, Anion Gap 8, Glomerular Filtration Rate > 60.0, Calcium Level 8.3L, Magnesium Level 2.4 CBC/BMP Laboratory Tests 10/12/20 06:26 Microbiology Microbiology 10/04/20 Stool Occult Blood (ANATOLIY) - Final, Complete Discharge Medications Scheduled Folic Acid (Folic Acid) 1 Mg Tablet, 1 MG PO DAILY Gabapentin (Neurontin) 100 Mg Capsule, 200 MG PO BID Levothyroxine Sodium (Levo-T) 25 Mcg Tablet, 50 MCG PO DAILY Midodrine HCl (Midodrine HCl) 5 Mg Tablet, 10 MG PO 08,12,16 Nystatin (Nystop) 60 Gm Powder, 1 DOSE TOP BID Polyethylene Glycol 3350 (Polyethylene Glycol 3350) 510 Gm Powder, 17 GRAM PO DAILY for constipation, (Reported) Potassium Chloride (Klor-Con M10) 10 Meq Tab.er.prt, 40 MEQ PO BID Ramelteon (Rozerem) 8 Mg Tablet, 8 MG PO QHS, (Reported) Sennosides/Docusate Sodium (Senna Plus Tablet) 1 Each Tablet, 1 TAB PO BID Spironolactone (Aldactone) 50 Mg Tablet, 50 MG PO BID@0900,1700 Thiamine Hcl (Vitamin B-1) 100 Mg Tablet, 100 MG PO DAILY Torsemide (Torsemide) 20 Mg Tablet, 40 MG PO BID@09,17 Scheduled PRN Acetaminophen (Acetaminophen) 325 Mg Tablet, 650 MG PO Q4H PRN for PAIN OR FEVER Magnesium Hydroxide (Milk of Magnesia) 400 Mg/5 Ml Oral.susp, 30 ML PO DAILY PRN for CONSTIPATION Oxybutynin Chloride (Oxybutynin Chloride) 5 Mg Tablet, 5 MG PO TIDP PRN for BLADDER SPASM Simethicone (Simethicone) 125 Mg Tab.chew, 125 MG PO Q6H PRN for GAS PAIN, (Reported) Allergies Coded Allergies: No Known Allergies (Verified , 07/12/07) SHAINA OLIVER MD Oct 12, 2020 10:00
== END 2020-10-12 07:18 | DRG 981 ==
LOC: EDBD 16:30 → M ED 16:30 → M ED INP 19:48 → ENRESERV 21:52 → M MSPAV 23:01
PROVIDERS: ADMIT Family Medicine; ATTEND Internal Medicine Nephrology
PROC: 0TC63ZZ Extirpation of Matter from Right Ureter, Percutaneous Approach (ICD-10-PCS; 2020-09-13)
PROC: 0T763DZ Dilation of Right Ureter with Intraluminal Device, Percutaneous Approach (ICD-10-PCS; 2020-09-13)
PROC: 0TC03ZZ Extirpation of Matter from Right Kidney, Percutaneous Approach (ICD-10-PCS; principal; 2020-09-13 10:00)
PROC: 30233N1 Transfusion of Nonautologous Red Blood Cells into Peripheral Vein, Percutaneous Approach (ICD-10-PCS; 2020-09-18)
DX: K56.41 Fecal impaction (principal); I50.33 Acute on chronic diastolic (congestive) heart failure; Z68.43 Body mass index [BMI] 50.0-59.9, adult; E87.1 Hypo-osmolality and hyponatremia; K43.9 Ventral hernia without obstruction or gangrene; I48.0 Paroxysmal atrial fibrillation; E66.01 Morbid (severe) obesity due to excess calories; I73.9 Peripheral vascular disease, unspecified; E03.9 Hypothyroidism, unspecified; R20.0 Anesthesia of skin; D50.9 Iron deficiency anemia, unspecified; R31.9 Hematuria, unspecified; E87.6 Hypokalemia; I95.9 Hypotension, unspecified; R53.1 Weakness; E88.09 Other disorders of plasma-protein metabolism, not elsewhere classified; E80.6 Other disorders of bilirubin metabolism; N18.2 Chronic kidney disease, stage 2 (mild); F32.9 Major depressive disorder, single episode, unspecified; R33.9 Retention of urine, unspecified; G47.00 Insomnia, unspecified; N20.0 Calculus of kidney; Z96.642 Presence of left artificial hip joint; Z96.0 Presence of urogenital implants; Z90.49 Acquired absence of other specified parts of digestive tract; Z87.891 Personal history of nicotine dependence; Z79.01 Long term (current) use of anticoagulants; Z79.899 Other long term (current) drug therapy; Z20.822 Contact with and (suspected) exposure to COVID-19

== ENCOUNTER 2020-10-29 14:39 | Inpatient (IN) | payer MEDICARE, OTHER ==
[~2020-10-29] VITALS: Ht 162.6 cm; Wt 139.4 kg
[~2020-10-29 14:39] MED LIST changes: +FOLI1TAB11 PO; +KLOR10TA76 PO; +MIDO5TA PO; +MOM30SS2 PO; +NYST10006 TOP; +OXYB5TAB10 PO; +POLY510P14 PO; +SENN-52 PO; +SIME1CHW5 PO; +THIA100TA PO; +med rec comment
[2020-10-29] MEDS ORDERED: XARE20TA PO (15:07)
[2020-10-29] MEDS ORDERED: ZOLO100T PO (15:07)
[2020-10-29] MEDS ORDERED: METO1TAB7 (15:07)
[2020-10-29] MEDS ORDERED: BACL10TA2 PO (15:07)
[2020-10-29] MEDS ORDERED: LEVO25TA5 PO (15:07)
[2020-10-29] MEDS ORDERED: GABA-1171 PO (15:07)
[2020-10-29] MEDS ORDERED: K-TA10TA2 PO (15:07)
[2020-10-29 17:26] LABS: BASO # 0.1 10^3/uL (0.0-0.2); BASO % 0.5 % (0.0-1.0); EOS # 0.2 10^3/uL (0.0-0.5); HEMATOCRIT 37.3 % (42.0-52.0); LYMPH # 1.4 10^3/uL (1.5-5.0); LYMPH % 14.4 % (24.0-44.0); MEAN CORPUSCULAR HEMOGLOBIN 31.5 pg (27.0-33.0); MEAN CORPUSCULAR HGB CONC 32.2 g/dl (32.0-36.5); MEAN CORPUSCULAR VOLUME 97.9 fl (80.0-96.0); MONO # 0.9 10^3/uL (0.0-0.8); MONO % 9.2 % (2.0-8.0); NEUTROPHILS # 7.2 10^3/uL (1.5-8.5); NEUTROPHILS % 72.8 % (36.0-66.0); PLATELET COUNT, AUTOMATED 154 10^3/uL (150-450); RED BLOOD COUNT 3.81 10^6/uL (4.30-6.10); WHITE BLOOD COUNT 9.9 10^3/uL (4.0-10.0)
--- NOTE | 2020-10-29 17:37 | REP ---
INDICATION: irreg HR. COMPARISON: Comparison chest x-ray July 21, 2020. TECHNIQUE: Three views... FINDINGS: The lungs are symmetrically aerated and free of infiltrate. The pleural angles are sharp. The frontal radiograph is exposed at a somewhat lordotic angle. Heart is mildly prominent unchanged. Pulmonary vasculature is not increased. No significant bony abnormality. EKG electrodes are seen. IMPRESSION: Prominent heart. Otherwise no acute disease. <Electronically signed by Perez Marie > 10/29/20 [id number]
[2020-10-29 17:44] LABS: INR 1.12; PROTHROMBIN TIME 14.7 SECONDS (12.5-14.3)
[2020-10-29 17:45] LABS: PARTIAL THROMBOPLASTIN TIME 37.2 SECONDS (24.2-38.5)
[2020-10-29 17:50] LABS: ALBUMIN 3.5 GM/DL (3.2-5.2); ALT/SGPT 22 U/L (12-78); BILIRUBIN,DIRECT 0.5 MG/DL (0.0-0.2); BILIRUBIN,TOTAL 1.4 MG/DL (0.2-1.0); CK-MB VALUE MASS < 1.0 NG/ML (<3.6); CPK CREATINE PHOSPHOKINASE 44 U/L (39-308); LIPASE 83 U/L (73-393); MB/CK RELATIVE INDEX 2.27 (< OR =4); TOTAL PROTEIN 8.6 GM/DL (6.4-8.2); TROPONIN I < 0.02 NG/ML (< 0.10)
[2020-10-29 18:01] LABS: FREE T4 1.11 NG/DL (0.76-1.46); MAGNESIUM LEVEL 2.5 MG/DL (1.8-2.4); THYROID STIMULATING HORMONE 3.64 uIU/ML (0.358-3.740)
[2020-10-29] MEDS ORDERED: DIGOXIN INJ 0.5 MG/2 ML AMP (J1160) IV STA (18:44)
--- NOTE | 2020-10-29 19:51 | REPVR ---
PROCEDURE INFORMATION: Exam: CT Head Without Contrast Exam date and time: 10/29/2020 7:20 PM Age: 65 years old Clinical indication: Dizziness; Additional info: Dizziness, weakness TECHNIQUE: Imaging protocol: Computed tomography of the head without contrast. Radiation optimization: All CT scans at this facility use at least one of these dose optimization techniques: automated exposure control; mA and/or kV adjustment per patient size (includes targeted exams where dose is matched to clinical indication); or iterative reconstruction. COMPARISON: CT Head without contrast 09/11/2020 2:38 PM FINDINGS: Brain: There is mild diffuse cerebellar atrophy. Mild parenchymal atrophy in the cerebral hemispheres. No significant white matter disease. Cerebral ventricles: No ventriculomegaly. Paranasal sinuses: Visualized sinuses are unremarkable. No fluid levels. Mastoid air cells: Visualized mastoid air cells are well aerated. Bones/joints: Unremarkable. No acute fracture. Soft tissues: Unremarkable. IMPRESSION: There is mild diffuse cerebellar and cerebral atrophy. No acute findings. Electronically signed by: David Cabral On 10/29/2020 19:51:38 PM
[2020-10-29] MEDS ORDERED: METO1TAB32 PO (20:00)
[2020-10-29] MEDS ORDERED: MAALOX 30 ML SUSP *UDC PO PRN (20:00)
[2020-10-29] MEDS ORDERED: TORS20TA2 PO (20:00)
[2020-10-29] MEDS ORDERED: MOM 30ML SUSPENSION UDC PO PRN (20:00)
[2020-10-29] MEDS ORDERED: ACETAMINOPHEN TAB 650MG DOSE (2X325MG) PO PRN (20:00)
--- NOTE | 2020-10-29 20:21 | REPVR ---
PROCEDURE INFORMATION: Exam: CT Abdomen And Pelvis Without Contrast Exam date and time: 10/29/2020 7:20 PM Age: 65 years old Clinical indication: Other: Hematuria; Additional info: Hematuria. HX stones TECHNIQUE: Imaging protocol: Computed tomography of the abdomen and pelvis without contrast. Radiation optimization: All CT scans at this facility use at least one of these dose optimization techniques: automated exposure control; mA and/or kV adjustment per patient size (includes targeted exams where dose is matched to clinical indication); or iterative reconstruction. COMPARISON: CT ABD/PEL W/IV CONTRAST ONLY 09/07/2020 6:04 PM FINDINGS: Tubes, catheters and devices: Status post removal of a the Guo me tube on the right placement of a double pigtail stent in the right collecting system with the position of the proximal distal coils within normal limits. Pleural spaces: Pleural thickening at both lung bases, right greater than left. Heart: Pericardial thickening. Liver: Normal. No mass. Gallbladder and bile ducts: There has been a cholecystectomy. Pancreas: Normal. No ductal dilation. Spleen: Normal. No splenomegaly. Adrenal glands: Normal. No mass. Kidneys and ureters: Nonobstructive calculi demonstrated in the upper and lower poles of the right kidney. Mild hydroureteronephrosis on the right, improved in comparison to the prior study of 09/07/2020. Stomach and bowel: Moderate diverticulosis is present in the distal colon. No diverticulitis. Diffuse thickening of the wall of the rectosigmoid colon, findings which may represent the residua of previously demonstrated stercoral colitis. Clinical correlation to exclude other colonic pathology suggested. There is increased feces throughout the colon consistent with constipation. Appendix: No evidence of appendicitis. Intraperitoneal space: Unremarkable. No free air. No significant fluid collection. Vasculature: The aortoiliac vessels demonstrate mild atherosclerotic calcification. Lymph nodes: Unremarkable. No enlarged lymph nodes. Urinary bladder: Unremarkable as visualized. Reproductive: Unremarkable as visualized. Bones/joints: [id number] central spinal stenosis L3-L4. Slight anterolisthesis of L4 on L5 with a severe central spinal stenosis. Bulging annulus L5 S1. Status post left hip hemiarthroplasty. Severe degenerative arthropathy right hip. Soft tissues: Large mid ventral anterior abdominal wall hernia contains multiple small bowel loops. No evidence of incarceration or bowel dilatation/thickening. Previously demonstrated inflammatory changes have resolved. Other findings: Shallow levoscoliosis. IMPRESSION: 1. There has been a cholecystectomy. 2. Status post removal of a the Guo me tube on the right placement of a double pigtail stent in the right collecting system with the position of the proximal distal coils within normal limits. 3. Nonobstructive calculi demonstrated in the upper and lower poles of the right kidney. 4. Mild hydroureteronephrosis on the right, improved in comparison to the prior study of 09/07/2020. 5. Large mid ventral anterior abdominal wall hernia contains multiple small bowel loops. No evidence of incarceration or bowel dilatation/thickening. Previously demonstrated inflammatory changes have resolved. 6. Moderate diverticulosis is present in the distal colon. No diverticulitis. 7. Diffuse thickening of the wall of the rectosigmoid colon, findings which may represent the residua of previously demonstrated stercoral colitis. Clinical correlation to exclude other colonic pathology suggested. 8. There is increased feces throughout the colon consistent with constipation. Electronically signed by: David Cabral On 10/29/2020 20:20:57 PM
--- NOTE | 2020-10-29 20:39 | ECGEPIP ---
[facility] - ED Test Date: 2020-10-29 Pat Name: JULIANO JENKINS Department: Room: - Gender: Male [employer]: HC : [id number] Requested By: DELORIS Andrews PA-C Order Number: [id number] Reading MD: Randall Ramirez Measurements Intervals [place] Rate: 132 P: WI: QRS: -22 QRSD: 130 T: 158 QT: 416 QTc: 616 Interpretive Statements Atrial flutter with 2:1 AV conduction Nonspecific intraventricular block Low QRS complex voltage in anterior leads Prolonged QTc interval longer than tracing done 07-18-20 T wave abnormality, consider lateral ischemia Electronically Signed on 10-29-2020 20:39:00 EDT by Randall Ramirez
[2020-10-29] MEDS ORDERED: DIGOXIN INJ 0.5 MG/2 ML AMP (J1160) IV SCH (21:00)
--- NOTE | 2020-10-29 21:17 | HPEPDOC ---
[facility] Medical History & Physical Date of Admission Oct 29, 2020 Date of Service: Oct 29, 2020 Attending Physician: YVETTE JARAMILLO MD History and Physical CHIEF COMPLAINT: Couldn't get up out of his chair because his foot is numb HISTORY OF PRESENT ILLNESS: Mr. Mccarthy is a 65-year-old male who is brought to the ER by EMS because he was having difficulty getting up out of his chair at home. He had complaints that his foot is numb. He admits that this is not new and is no worse than normal. He had a complete workup of left leg numbness. During his last hospitalization. It is believed that this is secondary to radiculopathy and imaging studies were negative for fractures and CT of the head was negative for stroke. He takes gabapentin and baclofen. He was discharged on October 12 after a rather lengthy hospitalization and [facility] Upon discharge from the SNF the patient stated that he was not given any prescriptions for any medications. Discussion with his girlfriend, by phone confirmed this informati on. She states she had thrown out all of his previous medications because they were "no good anymore". The patient was waiting for an appointment with a new primary care provider which was scheduled for November 06. He says he has not taken any of his medications since he returned home. On initial evaluation today, he was found to have atrial fibrillation with RVR. Heart rate was 132. Blood pressure was soft at 101/72. He had been prescribed Midodrine during his last hospitalization and continued on metoprolol. He was not on anticoagulation since he had undergone right percutaneous nephrolithotomy with basket stone extraction, right ureteroscopy, right antegrade nephrostogram and right ureteral stent placement. He was to follow up with urology for stent removal. 4-6 weeks after the procedure. This would have been between 10/15 and 10/26 , but he has not seen urology at this point. They had attempted to restart his Xarelto but he had recurrent hematuria. The plan was to try again to restart Xarelto after the right ureteral stent was removed. Cardiology was consulted by the ER provider and Dr. Smith recommended that the patient be treated with digoxin 0.25 mg IV every 6 hours 4 doses in light of his soft blood pressure. Patient was found to be covered in feces. When EMS arrived. The patient's girlfriend stated that she had cleaned him up previously and had gone to take a bath. When she came out EMS was there and the patient had stooled again. She denied any knowledge of the patient having a workup for left lower extremity numbness. She did acknowledge that the numbness had been there for quite some time and was not acutely worse. The patient denied any shortness of breath or chest pain. He is a very poor historian and may have some underlying intellectual disability. Most of the details of history were obtained from a thorough review of the medical record. Patient was noted a decreased hemoglobin and hematocrit 12 and 37.3. Magnesium was elevated at 2.5. Total bili was 1.4. He had some elevation of alkaline phosphatase at 135. BNP was 2783 , but the patient was satting 100% on room air. UA was abnormal with 3+ leukocyte Estrace and 1+ bacteria, as well as 3+ blood. He did not complain of any urinary symptoms. White blood cell count was within normal limits. CT of the abdomen and pelvis showed removal of the nephrostomy tube on the right and noted the double pigtail stent in the right collecting system. There is mild hydroureteronephrosis on the right, but this was improved over the previous study. His large midline ventral anterior abdominal wall hernia showed no evidence of incarceration and the previously demonstrated inflammatory changes were resolved. There was moderate diverticulosis and diffuse thickening of the wall of the rectosigmoid colon which radiology felt represented residual of the previously demonstrated colitis. CT again demonstrated constipation. CT of the head showed no acute findings. Chest x-ray was negative for any acute disease. PAST MEDICAL HISTORY: 1. Atrial fibrillation with rapid ventricular response. We'll continue the patient on digoxin 0.25 mg IV every 6 hours per cardiology recommendations. Audiology to evaluate in the morning. Continue to monitor on telemetry. Will cautiously start the patient on therapeutic Lovenox and monitor closely for gross hematuria. Will plan to restart her medications including midodrine and metoprolol in the morning. 2. Acute exacerbation of diastolic congestive heart failure with preserved ejection fraction. Patient satting well on room air at this point. Will hold diuresis with hypotension. Will plan to try to restart home torsemide in the morning if blood pressure will tolerate. Monitor intake and output closely. 3. Right ureteral stent, status post removal of staghorn calculi. Patient would benefit from urology consult for possible removal of the stent. Continue supportive care for now. 4. Hypotension with a history of hypertension. Monitor with routine vital signs for now. Hold diuretics for now. May need to restart midodrine in the morning. 5. Chronic constipation. MiraLAX. 6. Left foot numbness with radiculopathy. Will ask physical and occupational therapies to evaluate and treat. Patient is fall risk. 7. Venous stasis bilateral lower extremities. Elevate lower extremities as much as possible. 8. Hyponatremia. Recheck labs in the morning. 9. Anemia of chronic disease. Continue to monitor hemoglobin and hematocrit with daily labs. 10. Hypermagnesemia. Recheck magnesium level in the morning. 11. DVT prophylaxis. Therapeutic Lovenox. CODE STATUS: CODE STATUS was discussed with patient. He desires to be considered full code. He states his girlfriend or his sister would act as his surrogates. If he were unable to make his own decisions. Patient is considered high risk of further deterioration including worsening co ngestive heart failure and possible acute respiratory failure. He is admitted for close observation and further evaluation and expected to remain at least one midnight. PAST SURGICAL HISTORY: .. SOCIAL HISTORY: Tobacco use: ETOH: Illicit drug use: Patient lives with: FAMILY HISTORY: REVIEW OF SYSTEMS: Complete 10 point review systems is negative except as noted above PHYSICAL EXAMINATION: Patient is seen . is alert and oriented x 3. HEENT is WNL. Neck is supple. Lungs are clear to auscultation. Heart regular rate and rhythm without murmur. Abdomen is soft, non-tender to palpation with bowel sounds positive. Extremities with good ROM and strength equal bilaterally. No lower extremity edema. Pedal pulses are positive. Skin is warm and dry with no obvious rash or lesion. Neuro: grossly intact. Psych: ASSESSMENT AND PLAN: . Vital Signs Vital Signs Date Time Temp Pulse Resp B/P (MAP) Pulse Ox O2 Delivery O2 Flow Rate FiO2 10/29/20 20:00 132 18 106/70 (82) 100 Room Air 10/29/20 14:57 96.1 Laboratory Data Labs 24H Laboratory Tests 2 10/29/20 17:07: Immature Granulocyte % (Auto) 1.1, Neutrophils (%) (Auto) 72.8H, Lymphocytes (%) (Auto) 14.4L, Monocytes (%) (Auto) 9.2H, Eosinophils (%) (Auto) 2.0, Basophils (%) (Auto) 0.5, Neutrophils # (Auto) 7.2, Lymphocytes # (Auto) 1.4L, Monocytes # (Auto) 0.9H, Eosinophils # (Auto) 0.2, Basophils # (Auto) 0.1, Nucleated Red Blood Cells % (auto) 0.0, Prothrombin Time 14.7H, Prothromb Time International Ratio 1.12, Activated Partial Thromboplast Time 37.2, Urine Color YELLOW, Urine Appearance TURBIDH, Urine pH 5.0, Urine Specific [place] 1.014, Urine Protein 2+H, Urine Glucose (UA) NEGATIVE, Urine Ketones NEGATIVE, Urine Blood 3+H, Urine Nitrite NEGATIVE, Urine Bilirubin NEGATIVE, Urine Urobilinogen 0.2, Urine Leukocyte Esterase 3+H, Urine WBC (Auto) TNTCH, Urine RBC (Auto) 60H, Urine Hyaline Casts (Auto) 0, Urine Bacteria (Auto) 1+H, Urine Squamous Epithelial Cells 0, Urine Sperm (Auto) , Magnesium Level 2.5H, Total Bilirubin 1.4H, Direct Bilirubin 0.5H, Aspartate Amino Transf (AST/SGOT) 30, Alanine Aminotransferase (ALT/SGPT) 22, Alkaline Phosphatase 135H, Total Creatine Kinase 44, Creatine Kinase MB < 1.0, Creatine Kinase MB Relative Index 2.27, Troponin I < 0.02, NT- Pro-B-Type Natriuretic Peptide 2783H, Total Protein 8.6H, Albumin 3.5, Albumin/Globulin Ratio 0.7, Lipase 83, Thyroid Stimulating Hormone (TSH) 3.640, Free Thyroxine 1.11 10/29/20 17:09: POC Glucose (Misc Panel) 102, POC Sodium (Misc Panel) 132L, POC Potassium (Misc Panel) 3.5, POC Chloride (Misc Panel) 91L, POC Total CO2 (Misc Panel) 24.0, POC Blood Urea Nitrogen (Misc Panel 16, POC Ionized Calcium (Misc Panel) 4.5, POC Creatinine (Misc Panel) 0.8, POC Hematocrit (Misc Panel) 39.0 CBC/BMP Laboratory Tests 10/29/20 17:07 Microbiology Microbiology 10/29/20 Urine Culture, Received Pending Home Medications Scheduled Gabapentin (Gabapentin) 100 Mg Capsule, 100 MG PO TID Levothyroxine Sodium (Levothyroxine Sodium) 25 Mcg Tablet, 25 MCG PO DAILY Metoprolol Succinate (Metoprolol Succinate) 25 Mg Tab.er.24h, 25 MG PO DAILY Polyethylene Glycol 3350 (Polyethylene Glycol 3350) 510 Gm Powder, 17 GRAM PO DAILY for constipation Potassium Chloride (K-Tab ER) 10 Meq Tablet.er, 10 MEQ PO BID Ramelteon (Rozerem) 8 Mg Tablet, 8 MG PO QHS Rivaroxaban (Xarelto) 20 Mg Tablet, 20 MG PO DAILY Sertraline Hcl (Zoloft) 100 Mg Tablet, 100 MG PO DAILY Torsemide (Torsemide) 20 Mg Tablet, 40 MG PO DAILY Scheduled PRN Baclofen (Baclofen) 10 Mg Tablet, 10 MG PO TID PRN for MUSCLE SPASMS Simethicone (Simethicone) 125 Mg Tab.chew, 125 MG PO Q6H PRN for GAS PAIN Allergies Coded Allergies: No Known Allergies (Verified , 07/12/07) A-FIB/CHADSVASC A-FIB History Current/History of A-Fib/PAF?: Yes Current PO Anticoag Therapy: No Age/Risk Factor Scoring CHADSVASC: CHADSVASC Response (Comments) Value Age Risk Factor Age < 65 years old 0 Gender Risk Factor Male 0 Hx of CHF Yes 1 Hx of HTN Yes 1 Hx of Stroke/TIA/or VTE No 0 Hx of Diabetes No 0 Hx of Vascular Disease Yes 1 Total 3 Treatment Treatment ordered: NONE Reason Anticoagulant not given: Other (Please see note) Other reason anticoagulant not: Please see note FRANCISCA JUNIOR Oct 29, 2020 21:17
[2020-10-29 21:44] LABS: RSV AMPLIFICATION NEGATIVE (NEGATIVE)
[2020-10-29] MEDS: DIGOXIN INJ 0.5 MG/2 ML AMP (J1160) IV SCH (22:43)
[2020-10-29] MEDS: ENOXAPARIN 150MG/ML SYRINGE (J1650 PER 10MG) SC SCH (23:51)
[2020-10-29] MEDS: GABAPENTIN 100 MG CAP PO SCH (23:52)
[2020-10-29] MEDS: RAMELTEON 8 MG TAB (ROZEREM) PO SCH (23:52)
[2020-10-30] VITALS (23 sets, daily range): BP systolic 83–159; BP diastolic 50–97
[2020-10-30] MEDS: DIGOXIN INJ 0.5 MG/2 ML AMP (J1160) IV SCH ×2 (04:29→10:32)
[2020-10-30] MEDS: NYSTATIN 100,000 UNITS/GM TOPICAL PWD 15 GM TOP SCH ×4 (04:30→21:07)
[2020-10-30 05:15] LABS: HEMOGLOBIN 11.2 g/dl (13.5-17.5); MEAN CORPUSCULAR HEMOGLOBIN 31.4 pg (27.0-33.0); MEAN CORPUSCULAR HGB CONC 32.9 g/dl (32.0-36.5); MEAN CORPUSCULAR VOLUME 95.2 fl (80.0-96.0); PLATELET COUNT, AUTOMATED 143 10^3/uL (150-450); RED BLOOD COUNT 3.57 10^6/uL (4.30-6.10); WHITE BLOOD COUNT 9.4 10^3/uL (4.0-10.0)
[2020-10-30 05:35] LABS: BLOOD UREA NITROGEN 20 MG/DL (7-18); CALCIUM LEVEL 8.3 MG/DL (8.8-10.2); CARBON DIOXIDE LEVEL 24 MEQ/L (21-32); CHLORIDE LEVEL 99 MEQ/L (98-107); CREATININE FOR GFR 0.81 MG/DL (0.70-1.30); GLOMERULAR FILTRATION RATE > 60.0 (>49); GLUCOSE, FASTING 100 MG/DL (70-100); MAGNESIUM LEVEL 2.4 MG/DL (1.8-2.4); POTASSIUM SERUM 3.9 MEQ/L (3.5-5.1); SODIUM LEVEL 132 MEQ/L (136-145)
[2020-10-30] MEDS: LEVOTHYROXINE 25MCG TABLET (0.025MG) PO SCH (06:13)
[2020-10-30] MEDS: MIRALAX *UNIT DOSE* 17GM PACKET PO SCH (09:00)
[2020-10-30] MEDS ORDERED: METOPROLOL SUCC *XL* 25MG TAB (TopROL *XL*) PO SCH (09:00)
[2020-10-30] MEDS: GABAPENTIN 100 MG CAP PO SCH ×3 (09:35→21:06)
[2020-10-30] MEDS: SERTRALINE 100 MG TAB PO SCH (09:35)
--- NOTE | 2020-10-30 10:19 | IPN ---
PROGRESS NOTE DATE: 10/30/2020 SUBJECTIVE: Mr. Mccarthy is seen in the Intensive Care Unit, admitted with atrial fibrillation with rapid ventricular response, diastolic congestive heart failure, recent urologic problems requiring right ureteral stent for staghorn calculi with recurring hematuria limiting anticoagulant therapy. He has a history of hypertension but was having hypotensive vital signs limiting aggressive treatment of his atrial fibrillation. He has chronic numbness of the left foot which is from a radiculopathy, chronic lower extremity venous stasis, anemia of chronic disease, although he is about the same as he was on admission. Heart rate remains around 130. He says he is mildly short of breath. Denies any urinary bleeding. OBJECTIVE: VITAL SIGNS: Blood pressure 100/71, pulse 108, respiratory rate 18, 99% O2 saturation. GENERAL APPEARANCE: Alert, conversant, quite talkative, no distress. HEENT: Unremarkable. No JVD. LUNGS: Decreased breath sounds bilaterally. HEART: Regular rate and rhythm, tachycardic. ABDOMEN: Soft, nontender. No masses. EXTREMITIES: Trace pitting edema, venous stasis dermatitis present. He has what looks neurotic excoriations of his right forearm. Many are scabbed. They are of different ages. LABS: White count 9.4, hemoglobin 11.2, platelets 143. Sodium 130, potassium 3.9, BUN 20, creatinine 0.8, glucose 100, magnesium down to 2.4. BNP on admission was 2783 which is quite a bit up from his baseline. Thyroid functions are unremarkable. IMPRESSION AND PLAN: 1. Atrial fibrillation with rapid ventricular response. He is being loaded with Digoxin. He also has some low dose metoprolol ordered. Cardiology has been consulted. I will defer to them as far as rate management. 2. Diastolic congestive heart failure/congestive _preserved__ ejection fraction. Blood pressures are borderline at best. Holding off on diuresis. He is not symptomatic. We will defer to Cardiology on this. 3. Staghorn calculi, recent right ureteral stent with hematuria. He is on Lovenox. We are holding off on anticoagulant. He apparently had recurrent genitourinary bleeding on anticoagulant recently. 4. Anemia. His hemoglobin is stable. We will check this daily. 5. Hypermagnesemia. This has resolved. 6. Left foot numbness. This is unchanged from baseline, not an active current medical problem. [facility]
[2020-10-30] MEDS: ENOXAPARIN 150MG/ML SYRINGE (J1650 PER 10MG) SC SCH ×2 (10:30→21:07)
[2020-10-30] MEDS: METOPROLOL TART 12.5 MG PER 1/2 TAB PO SCH ×2 (14:26→18:13)
[2020-10-30] MEDS: RAMELTEON 8 MG TAB (ROZEREM) PO SCH (21:06)
[2020-10-31] VITALS (11 sets, daily range): BP systolic 83–111; BP diastolic 54–78
[2020-10-31] MEDS: METOPROLOL TART 12.5 MG PER 1/2 TAB PO SCH ×3 (02:00→17:00)
[2020-10-31 04:53] LABS: HEMATOCRIT 34.5 % (42.0-52.0); HEMOGLOBIN 11.2 g/dl (13.5-17.5); MEAN CORPUSCULAR HEMOGLOBIN 31.4 pg (27.0-33.0); MEAN CORPUSCULAR HGB CONC 32.5 g/dl (32.0-36.5); MEAN CORPUSCULAR VOLUME 96.6 fl (80.0-96.0); PLATELET COUNT, AUTOMATED 125 10^3/uL (150-450); RED BLOOD COUNT 3.57 10^6/uL (4.30-6.10)
[2020-10-31 05:10] LABS: BLOOD UREA NITROGEN 22 MG/DL (7-18); CALCIUM LEVEL 8.3 MG/DL (8.8-10.2); CARBON DIOXIDE LEVEL 23 MEQ/L (21-32); CHLORIDE LEVEL 99 MEQ/L (98-107); CREATININE FOR GFR 0.82 MG/DL (0.70-1.30); GLOMERULAR FILTRATION RATE > 60.0 (>49); GLUCOSE, FASTING 86 MG/DL (70-100); POTASSIUM SERUM 3.9 MEQ/L (3.5-5.1); SODIUM LEVEL 131 MEQ/L (136-145)
[2020-10-31] MEDS: LEVOTHYROXINE 25MCG TABLET (0.025MG) PO SCH (05:52)
--- NOTE | 2020-10-31 08:47 | IPN ---
PROGRESS NOTE DATE: 10/31/2020 SUBJECTIVE: Ta is seen in the ICU, an uneventful evening, no recurrence of hematuria, no shortness of breath. Denies palpitations or chest pain. His heart rate has come under better control. Apparently had some atrial flutter overnight. His current heart rate is around 90 to 100. An echocardiogram and Cardiology note are pending. OBJECTIVE: VITAL SIGNS: Blood pressure 98/63, pulse is 74. GENERAL APPEARANCE: Alert, conversant, in no distress. NECK: No JVD. LUNGS: Decreased breath sounds. A few wheezes at the bases. HEART: Regular rate and rhythm. There is a 1/6 systolic ejection murmur. ABDOMEN: Soft, nontender. No masses. EXTREMITIES: There is 1+ peripheral edema, venous stasis dermatitis of lower extremities. NEUROLOGIC: Nonfocal. LABORATORY DATA: CBC is unchanged. Electrolytes are unremarkable. Sodium is 131, BUN is 22, creatinine 0.8, potassium is 3.9. IMPRESSION: 1. Atrial fibrillation, rapid ventricular response. Heart rate is improved. Continue current regimen. He is on low dose metoprolol as well as Digoxin. An echocardiogram is pending. 2. Congestive heart failure with preserved ejection fraction. An echocardiogram is pending. Blood pressure is low, holding off on diuresis. 3. Staghorn calculi with recurrent hematuria. He is on Lovenox without any recurrence of bleeding. Probably start him anticoagulant tomorrow if he remains free of any hematuria. 4. Anemia, this is stable. 5. Mild hyponatremia, not symptomatic from this. 6. Klebsiella UTI. Urine culture has returned with Klebsiella which unfortunately is multiply drug resistant including ESBL positive. We will treat this with Fosfomycin.
[2020-10-31] MEDS: MIRALAX *UNIT DOSE* 17GM PACKET PO SCH (09:00)
[2020-10-31] MEDS: SERTRALINE 100 MG TAB PO SCH (09:19)
[2020-10-31] MEDS: NYSTATIN 100,000 UNITS/GM TOPICAL PWD 15 GM TOP SCH ×3 (09:19→21:20)
[2020-10-31] MEDS: GABAPENTIN 100 MG CAP PO SCH ×3 (09:19→21:21)
[2020-10-31] MEDS: DIGOXIN 0.25 MG TAB PO SCH (09:21)
[2020-10-31] MEDS: LORATADINE 10 MG TAB PO SCH (10:16)
[2020-10-31] MEDS: ENOXAPARIN 150MG/ML SYRINGE (J1650 PER 10MG) SC SCH ×2 (10:18→21:21)
[2020-10-31] MEDS ORDERED: FOSFOMYCIN TROMETHAMINE 3 GM POWDER PACKET (MONUROL) PO ONE (11:00)
[2020-10-31] MEDS: RAMELTEON 8 MG TAB (ROZEREM) PO SCH (21:21)
[2020-11-01] MEDS: METOPROLOL TART 12.5 MG PER 1/2 TAB PO SCH ×3 (02:11→17:21)
[2020-11-01] MEDS: LEVOTHYROXINE 25MCG TABLET (0.025MG) PO SCH (05:19)
[2020-11-01 06:00] VITALS: BP 104/60
[2020-11-01 07:12] LABS: HEMATOCRIT 34.8 % (42.0-52.0); HEMOGLOBIN 11.3 g/dl (13.5-17.5); MEAN CORPUSCULAR HEMOGLOBIN 31.2 pg (27.0-33.0); MEAN CORPUSCULAR HGB CONC 32.5 g/dl (32.0-36.5); MEAN CORPUSCULAR VOLUME 96.1 fl (80.0-96.0); PLATELET COUNT, AUTOMATED 125 10^3/uL (150-450); RED BLOOD COUNT 3.62 10^6/uL (4.30-6.10); WHITE BLOOD COUNT 7.2 10^3/uL (4.0-10.0)
[2020-11-01 07:29] LABS: BLOOD UREA NITROGEN 20 MG/DL (7-18); CALCIUM LEVEL 8.4 MG/DL (8.8-10.2); CARBON DIOXIDE LEVEL 25 MEQ/L (21-32); CHLORIDE LEVEL 99 MEQ/L (98-107); CREATININE FOR GFR 0.82 MG/DL (0.70-1.30); GLOMERULAR FILTRATION RATE > 60.0 (>49); GLUCOSE, FASTING 93 MG/DL (70-100); POTASSIUM SERUM 3.9 MEQ/L (3.5-5.1); SODIUM LEVEL 132 MEQ/L (136-145)
[2020-11-01] MEDS: MIRALAX *UNIT DOSE* 17GM PACKET PO SCH (09:00)
[2020-11-01] MEDS: NYSTATIN 100,000 UNITS/GM TOPICAL PWD 15 GM TOP SCH ×3 (09:12→20:15)
[2020-11-01] MEDS: SERTRALINE 100 MG TAB PO SCH (09:12)
[2020-11-01] MEDS: LORATADINE 10 MG TAB PO SCH (09:12)
[2020-11-01] MEDS: GABAPENTIN 100 MG CAP PO SCH ×3 (09:12→20:15)
[2020-11-01] MEDS: ENOXAPARIN 150MG/ML SYRINGE (J1650 PER 10MG) SC SCH (09:15)
[2020-11-01] MEDS: DIGOXIN 0.25 MG TAB PO SCH (09:16)
--- NOTE | 2020-11-01 10:22 | ECHO ---
ECHOCARDIOGRAM DATE OF PROCEDURE: 10/29/2020 Age: 65 Gender: Height: Weight: REFERRING PHYSICIAN: Dr. Smith INDICATION: Atrial fibrillation. PATIENT LOCATION: Room 3201 2D MEASUREMENTS: IVS 1.3 cm LVPW 1.3 cm LV 4.4 cm Aortic root 3.3 cm LA 4.5 cm IVC 2.1 cm DOPPLER MEASURE: Peak velocity across the aortic valve 1.1 m/sc Peak velocity across the LVOT 0.7 m/sec Mitral E 0.82 2D COMMENTS: 1. Technically limited study due to poor acoustic window. 2. The left ventricular size is normal with mildly increased left ventricular wall thickness. The estimated global left ventricular systolic function is 50%-55%. The basal septum appeared to be hypokinetic in limited views. 3. Mildly dilated left atrium. Normal right atrium and right ventricle. 4. The atrial septum appeared to be normal without evidence of defect or shunt. 5. Trace to small pericardial effusion. No evidence of cardiac tamponade. 6. The aortic valve, mitral valve, and tricuspid valve appeared to be normal in limited views. The pulmonic valve and proximal pulmonary artery branches were not well visualized. 7. The inferior vena cava was mildly enlarged. Central venous pressure is probably elevated. DOPPLER: No significant valvular abnormalities detected. Assessment of the left ventricular diastolic function was limited in view of the underlying arrhythmias. IMPRESSION: 1. Normal low-normal global left ventricular systolic function. Assessment of the left ventricular diastolic function was limited. 2. Trace to small pericardial effusion. No evidence of cardiac tamponade. 3. There were some features of elevated central venous pressure. The inferior vena cava is mildly enlarged. 4. No significant valvular abnormalities detected. 5. The study was technically limited due to poor acoustic window.
--- NOTE | 2020-11-01 10:38 | IPN ---
PROGRESS NOTE DATE: 11/01/2020 SUBJECTIVE: Ta is seen [facility]. His atrial fibrillation has come under better control. I was hoping to discharge him today but he has developed some orthostatic hypotension. Apparently, this has been an ongoing problem. During his last hospitalization he was on Midodrine that was not on his admission medication list. He also needs some therapy before he is ready to go. He denies any significant hematuria. He is not having any chest pain, shortness of breath or palpitations. He feels weak. He has not been out of bed very much. OBJECTIVE: VITAL SIGNS: Blood pressure is 88/56, was 104/60 this morning, heart rate of 77 to 100, 95% O2 saturation. GENERAL APPEARANCE: He is alert, conversant, in no distress. NECK: No JVD. LUNGS: Irregular rate and rhythm. ABDOMEN: Soft, nontender, obese, no masses. EXTREMITIES: Lower extremity edema with venous stasis dermatitis present. LABORATORY DATA: White count is 7.2, hemoglobin is 11.3, platelets are 125,000, sodium 132, potassium 3.9, BUN 20, creatinine 0.8, glucose is 93. IMPRESSION: 1. Atrial fibrillation with rapid ventricular response. His heart rate is under better control. Continue his current regimen. He has been on Lovenox for thromboembolic prophylaxis at dull dose. Will stop this and restart the Xarelto he is taking as an outpatient. 2. Congestive heart failure with reduced ejection fraction. Still do not have the echocardiogram back. It would be nice to have this before discharge. 3. Staghorn calculi with recurrent hematuria. We will restart his Xarelto, stop the Lovenox, monitor for severe hematuria. 4. ESBL positive Klebsiella UTI. He received Fosfomycin yesterday and will repeat the dose tomorrow or Thursday depending on when he is discharged. 5. Mild hyponatremia, chronic and not symptomatic. 6. Anemia, this is stable. 7. Orthostatic hypotension, restart Midodrine 10 mg t.i.d.
[2020-11-01] MEDS ORDERED: SODIUM CHLORIDE 0.9% INJ 10 ML SYR IV PRN (10:40)
[2020-11-01] MEDS: MIDODRINE 5 MG TAB PO SCH ×2 (11:47→17:18)
[2020-11-01 14:00] VITALS: BP 126/75
[2020-11-01] MEDS ORDERED: SODIUM CHLORIDE 0.9% INJ 10 ML SYR IV SCH (18:00)
[2020-11-01] MEDS ORDERED: RIVAROXABAN 20 MG TAB (XARELTO) PO SCH (18:00)
[2020-11-01] MEDS: RAMELTEON 8 MG TAB (ROZEREM) PO SCH (20:15)
[2020-11-01 22:00] VITALS: BP 107/77
[2020-11-02] MEDS: METOPROLOL TART 12.5 MG PER 1/2 TAB PO SCH ×2 (01:42→11:20)
[2020-11-02] MEDS: LEVOTHYROXINE 25MCG TABLET (0.025MG) PO SCH (05:39)
[2020-11-02 06:00] VITALS: BP 97/62
[2020-11-02 06:24] LABS: HEMATOCRIT 32.2 % (42.0-52.0); HEMOGLOBIN 10.6 g/dl (13.5-17.5); MEAN CORPUSCULAR HGB CONC 32.9 g/dl (32.0-36.5); MEAN CORPUSCULAR VOLUME 97.3 fl (80.0-96.0); PLATELET COUNT, AUTOMATED 132 10^3/uL (150-450); RED BLOOD COUNT 3.31 10^6/uL (4.30-6.10); WHITE BLOOD COUNT 7.7 10^3/uL (4.0-10.0)
[2020-11-02 06:55] LABS: BLOOD UREA NITROGEN 21 MG/DL (7-18); CALCIUM LEVEL 8.6 MG/DL (8.8-10.2); CARBON DIOXIDE LEVEL 24 MEQ/L (21-32); CHLORIDE LEVEL 101 MEQ/L (98-107); CREATININE FOR GFR 0.97 MG/DL (0.70-1.30); GLOMERULAR FILTRATION RATE > 60.0 (>49); GLUCOSE, FASTING 94 MG/DL (70-100); SODIUM LEVEL 132 MEQ/L (136-145)
[2020-11-02] MEDS ORDERED: MIRALAX *UNIT DOSE* 17GM PACKET PO SCH (07:57)
[2020-11-02] MEDS: GABAPENTIN 100 MG CAP PO SCH ×2 (07:59→16:07)
[2020-11-02] MEDS: LORATADINE 10 MG TAB PO SCH (07:59)
[2020-11-02] MEDS: SERTRALINE 100 MG TAB PO SCH (07:59)
[2020-11-02] MEDS: NYSTATIN 100,000 UNITS/GM TOPICAL PWD 15 GM TOP SCH ×2 (07:59→16:07)
[2020-11-02] MEDS: MIDODRINE 5 MG TAB PO SCH ×3 (08:00→16:07)
[2020-11-02] MEDS: DIGOXIN 0.25 MG TAB PO SCH (08:02)
[2020-11-02] MEDS ORDERED: DIGO0.253 PO (10:08)
[2020-11-02] MEDS ORDERED: MIDO5TA PO (10:08)
--- NOTE | 2020-11-02 11:15 | DSES ---
DISCHARGE SUMMARY DATE OF ADMISSION: 10/29/2020 DATE OF DISCHARGE: 11/02/2020 (against medical advice) PRINCIPAL DIAGNOSIS: Atrial fibrillation with rapid ventricular response. SECONDARY DIAGNOSES: 1. Congestive heart failure with reduced ejection fraction. 2. Recurrent hematuria with staghorn calculi. 3. Extended [id number]-zpmtzsbam positive klebsiella urinary tract infection. 4. Chronic anemia. 5. History of orthostatic hypotension. HISTORY: Ta came in and was admitted for atrial fibrillation with rapid ventricular response. Details under history and physical from admission. HOSPITAL COURSE: He was admitted to a PCU bed. It took a few days to get his heart rate under control. He has been having controlled ventricular rate for the better part of the last two days. He did not require significant diuresis during this admission. Salt and fluid restrictions seem satisfactory. Noncompliance with this leads to readmissions. His anticoagulation was held but we restarted that yesterday. No significant bleeding occurred. Urine would grow ESBL positive klebsiella. He received fosfomycin on 10/31 and we will give another dose the day before discharge. SIGNIFICANT LABS: Today white count is 7.7, hemoglobin 10.6, platelets 132. Sodium 142, potassium 4, BUN 21, creatinine 0.9, glucose 94, BNP was 2783. TSH, free T4 normal. COVID test was negative. Echocardiogram showed hypokinetic basal septum, ejection fraction 50-55%, dilated left atrium 45 mm DISPOSITION: Concerned about his going home. Physical therapy notes that he is able to walk once he gets out of bed but he needs assistance and he cannot get out of bed without significant help. Apparently home health services have seen him in the past and had to drop him as a patient due to noncompliance. He is getting a new primary care provider with an appointment at the [facility] and Dr. Smart will be his new primary care physician. He really needs short-term rehab. He is refusing to do this. He will see Dr. Smart at the [facility] in a week. Activity as tolerated. He uses a rolling walker. A 2 gm sodium diet, 1800 mL per day fluid restriction. MEDICINES ON DISCHARGE: 1. Gabapentin 100 mg three times a day. 2. MiraLax as needed. 3. Levothyroxine 25 mcg daily. 4. Metoprolol ER 25 mg daily. 5. Rozerem 8 mg at bedtime. 6. Digoxin 0.25 mg daily. 7. Sertraline 100 mg daily. 8. Xarelto 20 mg daily. 9. Midodrine 10 mg three times a day. 10. He has not required any diuretic during this hospitalization. We had a lengthy discussion about the importance of complying with his medical treatment.
[2020-11-02 11:20] VITALS: BP 105/80
[2020-11-02] MEDS ORDERED: FOSFOMYCIN TROMETHAMINE 3 GM POWDER PACKET (MONUROL) PO ONE (13:00)
[2020-11-02 14:00] VITALS: BP 98/73
[2020-11-03] MEDS ORDERED: FOSFOMYCIN TROMETHAMINE 3 GM POWDER PACKET (MONUROL) PO ONE (09:00)
== END 2020-11-02 17:00 | disposition left against medical advice (07) | DRG 309 ==
LOC: M ED 14:39 → EDBD 14:39 → EEVIPCON 19:57 → M ED INP 19:57 → ENRESERV 21:55 → M ICU 22:49 → M MSPAV 10-31 17:13
PROVIDERS: ADMIT Internal Medicine; ATTEND Family Medicine
DX: I48.91 Unspecified atrial fibrillation (principal); I50.32 Chronic diastolic (congestive) heart failure; E87.1 Hypo-osmolality and hyponatremia; N39.0 Urinary tract infection, site not specified; I95.1 Orthostatic hypotension; K59.09 Other constipation; R20.0 Anesthesia of skin; B96.1 Klebsiella pneumoniae [K. pneumoniae] as the cause of diseases classified elsewhere; N20.0 Calculus of kidney; I11.0 Hypertensive heart disease with heart failure; I87.2 Venous insufficiency (chronic) (peripheral); D63.8 Anemia in other chronic diseases classified elsewhere; E83.41 Hypermagnesemia; Z96.0 Presence of urogenital implants; Z79.01 Long term (current) use of anticoagulants; Z79.899 Other long term (current) drug therapy

== ENCOUNTER 2020-11-11 14:57 | Inpatient (IN) | payer OTHER, MEDICAID ==
[~2020-11-11] VITALS: Ht 167.6 cm; Wt 151.4 kg
[~2020-11-11 14:57] MED LIST changes: +BACL10TA2 PO; +DIGO0.253 PO; +GABA-1171 PO; +K-TA10TA2 PO; +LEVO25TA5 PO; +METO1TAB7
[2020-11-11 16:30] LABS: BASO % 0.5 % (0.0-1.0); EOS # 0.2 10^3/uL (0.0-0.5); EOS % 2.7 % (0.0-3.0); HEMATOCRIT 33.2 % (42.0-52.0); HEMOGLOBIN 10.6 g/dl (13.5-17.5); LYMPH # 1.2 10^3/uL (1.5-5.0); LYMPH % 14.7 % (24.0-44.0); MEAN CORPUSCULAR HEMOGLOBIN 31.5 pg (27.0-33.0); MEAN CORPUSCULAR HGB CONC 31.9 g/dl (32.0-36.5); MEAN CORPUSCULAR VOLUME 98.8 fl (80.0-96.0); MONO # 0.6 10^3/uL (0.0-0.8); MONO % 7.3 % (2.0-8.0); NEUTROPHILS # 5.7 10^3/uL (1.5-8.5); NEUTROPHILS % 73.4 % (36.0-66.0); PLATELET COUNT, AUTOMATED 141 10^3/uL (150-450); RED BLOOD COUNT 3.36 10^6/uL (4.30-6.10); WHITE BLOOD COUNT 7.8 10^3/uL (4.0-10.0)
[2020-11-11 16:56] LABS: C REACTIVE PROTEIN QUANTITATIV 4.29 MG/DL (0.00-0.30)
[2020-11-11 17:31] LABS: ERYTHROCYTE SEDIMENTATION RATE 68 mm/hr (0-20)
--- NOTE | 2020-11-11 19:02 | REPVR ---
PROCEDURE INFORMATION: Exam: CT Abdomen And Pelvis Without Contrast Exam date and time: 11/11/2020 6:34 PM Age: 65 years old Clinical indication: Other: Elevated sed rate, buttock cellulitis TECHNIQUE: Imaging protocol: Computed tomography of the abdomen and pelvis without contrast. Radiation optimization: All CT scans at this facility use at least one of these dose optimization techniques: automated exposure control; mA and/or kV adjustment per patient size (includes targeted exams where dose is matched to clinical indication); or iterative reconstruction. COMPARISON: CT ABD PELVIS W/O CONTRAST 10/29/2020 7:07 PM FINDINGS: Tubes, catheters and devices: Double pigtail catheter demonstrated in the right collecting system with satisfactory positioning of the proximal and distal coils. Nonobstructive calculi demonstrated in the right kidney. Mild right-sided hydronephrosis. Pleural spaces: Small bilateral pleural effusions. Heart: Pericardial thickening versus small pericardial effusion. Liver: Normal. No mass. Gallbladder and bile ducts: There has been a cholecystectomy. Pancreas: Normal. No ductal dilation. Spleen: Normal. No splenomegaly. Adrenal glands: Normal. No mass. Kidneys and ureters: Left kidney unremarkable. Stomach and bowel: Moderate diverticulosis is present in the distal colon. No diverticulitis. Diffuse wall thickening of the distal sigmoid and rectum, findings consistent with proctosigmoiditis. No discrete abscess demonstrated. Appendix: No evidence of appendicitis. Intraperitoneal space: Unremarkable. No free air. No significant fluid collection. Vasculature: The aortoiliac vessels demonstrate mild atherosclerotic calcification. Lymph nodes: Unremarkable. No enlarged lymph nodes. Urinary bladder: Unremarkable as visualized. Reproductive: Unremarkable as visualized. Bones/joints: Moderate central spinal stenosis L3-L4 moderate to severe central spinal stenosis L4-L5. Status post hemiarthroplasty left hip. Soft tissues: Large bowel containing mid ventral anterior abdominal wall hernia without obvious incarceration. There is soft tissue edema demonstrated in the abdominal wall, flanks and buttock regions consistent with anasarca. IMPRESSION: 1. There has been a cholecystectomy. 2. Double pigtail catheter demonstrated in the right collecting system with satisfactory positioning of the proximal and distal coils. Nonobstructive calculi demonstrated in the right kidney. Mild right-sided hydronephrosis. 3. Moderate diverticulosis is present in the distal colon. No diverticulitis. 4. Diffuse wall thickening of the distal sigmoid and rectum, findings consistent with proctosigmoiditis. No discrete abscess demonstrated. 5. Anasarca. Electronically signed by: David Cabral On 11/11/2020 19:02:16 PM
[2020-11-11] MEDS ORDERED: POTA1TAB23 PO (19:09)
[2020-11-11] MEDS ORDERED: DIGO0.253 PO (19:09)
[2020-11-11] MEDS ORDERED: MIDO10TA PO (19:09)
[2020-11-11 21:23] LABS: RSV AMPLIFICATION NEGATIVE (NEGATIVE)
[2020-11-11] MEDS ORDERED: VANCOMYCIN HCL 1,000 MG, VIAL MATE ADAPTER 1 EACH in NS 250 ML IV ONE (23:00)
[2020-11-11] MEDS: RAMELTEON 8 MG TAB (ROZEREM) PO SCH (23:49)
[2020-11-11] MEDS: GABAPENTIN 100 MG CAP PO SCH (23:50)
[2020-11-12] MEDS ORDERED: ACETAMINOPHEN TAB 650MG DOSE (2X325MG) PO PRN (00:20)
[2020-11-12 00:40] VITALS: BP 120/73
[2020-11-12] MEDS ORDERED: VANCOMYCIN HCL 1,000 MG, VIAL MATE ADAPTER 1 EACH in NS 250 ML IV SCH (01:00)
[2020-11-12 06:00] VITALS: BP 102/66
[2020-11-12 06:35] LABS: BASO # 0.1 10^3/uL (0.0-0.2); BASO % 0.6 % (0.0-1.0); EOS # 0.3 10^3/uL (0.0-0.5); EOS % 3.6 % (0.0-3.0); HEMATOCRIT 31.9 % (42.0-52.0); HEMOGLOBIN 10.2 g/dl (13.5-17.5); LYMPH # 1.3 10^3/uL (1.5-5.0); LYMPH % 16.4 % (24.0-44.0); MONO # 0.6 10^3/uL (0.0-0.8); MONO % 7.5 % (2.0-8.0); NEUTROPHILS # 5.5 10^3/uL (1.5-8.5); NEUTROPHILS % 70.4 % (36.0-66.0); PLATELET COUNT, AUTOMATED 137 10^3/uL (150-450); RED BLOOD COUNT 3.19 10^6/uL (4.30-6.10); WHITE BLOOD COUNT 7.8 10^3/uL (4.0-10.0)
[2020-11-12 07:08] LABS: ALT/SGPT 13 U/L (12-78); BILIRUBIN,TOTAL 0.9 MG/DL (0.2-1.0); BLOOD UREA NITROGEN 15 MG/DL (7-18); CALCIUM LEVEL 7.9 MG/DL (8.8-10.2); CARBON DIOXIDE LEVEL 26 MEQ/L (21-32); CHLORIDE LEVEL 105 MEQ/L (98-107); CREATININE FOR GFR 0.83 MG/DL (0.70-1.30); GLOMERULAR FILTRATION RATE > 60.0 (>49); GLUCOSE, FASTING 98 MG/DL (70-100); POTASSIUM SERUM 3.9 MEQ/L (3.5-5.1); SODIUM LEVEL 137 MEQ/L (136-145); TOTAL PROTEIN 7.1 GM/DL (6.4-8.2)
[2020-11-12] MEDS: MIDODRINE 5 MG TAB PO SCH ×3 (08:00→16:18)
[2020-11-12] MEDS: METOPROLOL SUCC *XL* 25MG TAB (TopROL *XL*) PO SCH (09:00)
[2020-11-12] MEDS: NYSTATIN 100,000 UNITS/GM TOPICAL PWD 15 GM TOP SCH ×2 (09:00→18:37)
--- NOTE | 2020-11-12 09:51 | CR.PDOC ---
General Date of Consultation: Nov 12, 2020 Consultation REASON FOR CONSULTATION/CHIEF COMPLAINT: [Bed sore on buttocks]. HISTORY OF PRESENT ILLNESS: Mr. Mccarthy first noticed sore buttocks around 2-3 days ago accompanied by redness in the area. Describes it as being tender to the touch but having no pain when sitting down. Says girlfriend put antibiotic ointment on area which he said helped decrease tenderness. When taking off pants yesterday noticed that they were stuck to him due to blood and drainage from the area. Decided to call ambulance and come to [facility] when he noticed blood pouring down leg. ALLERGIES: Please see below. HOME MEDICATIONS: Please see below. PAST MEDICAL HISTORY: 1. Paroxysmal atrial fibrillation, on Xarelto. 2. Depression. 3. Obesity. 4. Peripheral vascular disease. 5. Insomnia PAST SURGICAL HISTORY: 1. Nephrostomy tube placement. 2. Left hip. 3. Ventral hernia repair. 4. Cholecystectomy. 5. Appendectomy FAMILY HISTORY: noncontributory SOCIAL HISTORY: denies EtOH use; reports having stopped smoking in January 2020 REVIEW OF SYSTEMS: CONSTITUTIONAL: denies fevers CARDIOVASCULAR: denies chest pain, palpitations RESPIRATORY: denies sob, cough, or difficulty breathing GASTROINTESTINAL: denies nausea, vomiting, belly pain or bloody stools; endorses loose stools PHYSICAL EXAMINATION: VITAL SIGNS: Please see below. GENERAL APPEARANCE: well-nourished, 65yo male, lying comfortably in bed RESPIRATORY: lungs clear to auscultation bilaterally CARDIOVASCULAR: RRR, no murmurs, rubs, or gallops ABDOMEN: normal bowel sounds and non-tender to palpation in all 4 quadrants; hernia present Buttocks: perianal, bilateral buttocks and proximal thighs excoriated and erythematous, tender to the touch, purulent fluid and oozing from surface of the wound LABORATORY DATA: Please see below. ASSESSMENT/PLAN: 65yo male admitted due to bed sore on buttocks - concerning for possible stage 1 pressure ulcer 1. Bactrim 1 tab PO BID 2. Regular cleanings on affected area - consider wound care consult Vital Signs/I&O Vital Signs Date Time Temp Pulse Resp B/P (MAP) Pulse Ox O2 Delivery O2 Flow Rate FiO2 11/12/20 06:00 97.4 70 19 102/66 (78) 95 Room Air I&O- Last 24 Hours up to 6 AM 11/12/20 06:00 Intake Total 570 ml Output Total 250 ml Balance 320 ml Laboratory Data Labs 24H Laboratory Tests 2 11/11/20 16:17: C-Reactive Protein, Quantitative 4.29H, FT-Uwb-H-Type Natriuretic Peptide 778H 11/11/20 16:18: Immature Granulocyte % (Auto) 1.4, Neutrophils (%) (Auto) 73.4H, Lymphocytes (%) (Auto) 14.7L, Monocytes (%) (Auto) 7.3, Eosinophils (%) (Auto) 2.7, Basophils (%) (Auto) 0.5, Neutrophils # (Auto) 5.7, Lymphocytes # (Auto) 1.2L, Monocytes # (Auto) 0.6, Eosinophils # (Auto) 0.2, Basophils # (Auto) 0.0, Nucleated Red Blood Cells % (auto) 0.0, Erythrocyte Sedimentation Rate 68H 11/11/20 16:27: POC Glucose (Misc Panel) 91, POC Sodium (Misc Panel) 138, POC Potassium (Misc Panel) 4.3, POC Chloride (Misc Panel) 101, POC Total CO2 (Misc Panel) 20.0L, POC Blood Urea Nitrogen (Misc Panel 14, POC Ionized Calcium (Misc Panel) 4.5, POC Creatinine (Misc Panel) 0.7, POC Hematocrit (Misc Panel) 34.0L 11/11/20 20:24: Coronavirus (COVID-19)(PCR) NEGATIVE, Influenza Type A (RT-PCR) NEGATIVE, Influenza Type B (RT-PCR) NEGATIVE, Respiratory Syncytial Virus (PCR) NEGATIVE 11/12/20 05:30: Immature Granulocyte % (Auto) 1.5, Neutrophils (%) (Auto) 70.4H, Lymphocytes (%) (Auto) 16.4L, Monocytes (%) (Auto) 7.5, Eosinophils (%) (Auto) 3.6H, Basophils (%) (Auto) 0.6, Neutrophils # (Auto) 5.5, Lymphocytes # (Auto) 1.3L, Monocytes # (Auto) 0.6, Eosinophils # (Auto) 0.3, Basophils # (Auto) 0.1, Nucleated Red Blood Cells % (auto) 0.0, Anion Gap 6L, Glomerular Filtration Rate > 60.0, Calcium Level 7.9L, Total Bilirubin 0.9, Aspartate Amino Transf (AST/SGOT) 17, Alanine Aminotransferase (ALT/SGPT) 13, Alkaline Phosphatase 172H, Total Protein 7.1, Albumin 3.0L, Albumin/Globulin Ratio 0.7, Digoxin Level 1.4 CBC/BMP Laboratory Tests 11/11/20 16:18 11/12/20 05:30 Microbiology Microbiology 11/12/20 Blood Culture, Received Pending Allergies Coded Allergies: No Known Allergies (Verified , 07/12/07) Home Medications Scheduled Digoxin (Digoxin) 250 Mcg Tablet, 250 MCG PO DAILY, (Reported) Gabapentin (Gabapentin) 100 Mg Capsule, 100 MG PO TID, (Reported) Levothyroxine Sodium (Levothyroxine Sodium) 25 Mcg Tablet, 25 MCG PO DAILY, (Reported) Metoprolol Succinate (Metoprolol Succinate) 25 Mg Tab.er.24h, 25 MG PO DAILY, (Reported) Midodrine HCl (Midodrine HCl) 10 Mg Tablet, 10 MG PO TID, (Reported) Potassium Chloride (Potassium Chloride) 10 Meq Tablet.er, 10 MEQ PO BID, (Reported) Ramelteon (Rozerem) 8 Mg Tablet, 8 MG PO QHS, (Reported) Rivaroxaban (Xarelto) 20 Mg Tablet, 20 MG PO DAILY, (Reported) Sertraline Hcl (Zoloft) 100 Mg Tablet, 100 MG PO DAILY, (Reported) Torsemide (Torsemide) 20 Mg Tablet, 40 MG PO DAILY, (Reported) Haroon Garcia DO Nov 12, 2020 08:22
[2020-11-12 10:00] VITALS: BP 102/50
[2020-11-12] MEDS: BACTRIM 160MG/800MG DS TAB PO SCH ×2 (10:43→20:32)
[2020-11-12] MEDS: SERTRALINE 100 MG TAB PO SCH (10:43)
[2020-11-12] MEDS: RIVAROXABAN 20 MG TAB (XARELTO) PO SCH (10:44)
[2020-11-12] MEDS: LEVOTHYROXINE 25MCG TABLET (0.025MG) PO SCH (10:44)
[2020-11-12] MEDS: POTASSIUM CHLORIDE 10 MEQ SR TABLET PO SCH ×2 (10:44→20:32)
[2020-11-12] MEDS: GABAPENTIN 100 MG CAP PO SCH ×3 (10:44→20:32)
--- NOTE | 2020-11-12 10:57 | HPE ---
HISTORY AND PHYSICAL DATE OF ADMISSION: 11/11/2020 CHIEF COMPLAINT: Enlarging sore/ulcer on his bilateral buttocks, posterior thighs and posterior scrotal area. HISTORY OF PRESENT ILLNESS: This was a 65-year-old male who came to the emergency room after having an enlarging sore on his buttocks and posterior thighs that was giving him increased pain and he noticed that it was bleeding. This week he was having increased springing pain. He denied any fever or chills. He stated he has had soft, loose stool. Upon arrival, his blood pressure was 91/55, pulse 65, respirations were 14. Temperature was 98.1. O2 sat was 93 to 100% on room air. LABORATORY STUDIES: White count was 7.8, hemoglobin 10.6, hematocrit 33.2. Platelets were 141. Sed rate was elevated at 68. C-reactive protein was 4.29, Glucose was 91, sodium 138, potassium 4.3, chloride 101. BUN was 14. Creatinine was 0.7. COVID test was negative, nondetected. Imaging was done. CT of the abdomen and pelvis showed past cholecystectomy, double pigtail catheter in the right collecting system with satisfactory positioning of the proximal and distal flails, nonobstructive calculi demonstrated in the right kidney. There is mild right-sided hydronephrosis, mild diverticulosis in the distal colon. No diverticulitis. Of note, there was diffuse wall thickening of the distal sigmoid and rectum, findings consistent with proctosigmoiditis. The physician spoke with Dr. Cunningham and he will consult. No dystrophy as this demonstrated anasarca. Assessment was done and the patient will be admitted to the medical floor for proctosigmoiditis, treatment with antibiotics, wound consult, blood cultures, antibiotics. We will continue his p.o. torsemide with fluid. We will continue Xarelto, DVT prophylaxis and he has a history of A fib. Consult for possible removal of the renal stent and mild hydronephrosis. The patient will be admitted to the hospitalist service to Dr. Chris. SOCIAL HISTORY: The patient lives with his girlfriend and her son. He states he gets up with a walker. He does walk, he states, to the bathroom. He is a former smoker of 46 years, 1 to 1-1/2 packs per day. He states he quit nine months ago, states he does not drink alcohol. ALLERGIES: No known allergies. FAMILY HISTORY: Mother in her 70s, had a history of diabetes type 2 and heart disease. Father's medical history, he did not know. PAST MEDICAL HISTORY: 1. History of atrial fibrillation. Continues on digoxin. We will get a dig level. Continue low dose metoprolol succinate for regulation. Get a digoxin level. 2. History of CHF, diastolic. 3. History of right ureteral stent, status post removal of staghorn calculi. 4. History of chronic constipation, continue Miralax. 5. Venous stasis, bilateral lower extremities. 6. History of anemia of chronic disease. We will check an iron level. 7. History of large ventral midline anterior abdominal wall hernia. 8. Current history of proctosigmoiditis being treated with vancomycin. PAST SURGICAL HISTORY: 1. Right nephrostomy tube, placed in by interventional radiologist, Dr. Ramirez, 09/05/20. 2. Left hip replacement. 3. Hernia repair. 4. Cholecystectomy. 5. Appendectomy. REVIEW OF SYSTEMS: No complaint of headache, no blurred or double vision, no fever, no chills, no tinnitus, no hoarseness, no difficulty swallowing, no lightheadedness, no vertigo. Cardiovascular: No complaints of chest pain, shortness of breath or palpitations. Respiratory: No chronic cough. No sputum production. No hemoptysis, no orthopnea, no wheeze. No complaints of abdominal pain. : History of kidney stones. Currently has right ureteral stone. Musculoskeletal: No joint redness or swelling. Endocrine: No history of diabetes or thyroid disease. Hematological: History of anemia. Neurological: No history of paralysis, no history of seizures. Psychological: History of depression, no suicidal ideations. PHYSICAL EXAM: GENERAL: 65-year-old male, weight 147.7 kilograms, height 65 inches. BMI 52.6. The patient is alert and oriented x3. HEENT: Pharynx, tongue, gums pink and moist. Tongue is midline. NECK: Supple without lymphadenopathy, no thyromegaly, no goiter, carotids 2+ without bruit. CHEST: Decreased breath sounds. No wheeze or retraction. HEART: Regular. ABDOMEN: Morbidly obese, left protruding ventral type hernia. No rebound or guarding. No masses, pulsations or bruits. No organomegaly. Bowel sounds positive. BUTTOCKS: Open sore, large area on the buttocks extending to the thigh, posterior scrotum. Scant amount of drainage noted. EXTREMITIES: Show equal strength. Knees down, brown, leathery venous stasis changes noted. No open areas. ASSESSMENT AND PLAN: 1. Proctosigmoiditis. I spoke with Dr. Cunningham. He will consult. The patient has been started on vancomycin. Blood cultures have been drawn. We will continue torsemide, increase or change diuretics if needed to decrease the anasarca, edema. 2. diastolic congestive heart failure. We will continue digoxin and continue Lasix as well 3. A fib. Continue current medications. Get a dig level and EKG. 4. Right ureteral stent. Consult urology for possible removal of the stent. 5. History of hypotension. Continuing with Midodrine. Blood pressures staying 90-100, up to 110 with the use of monitoring. We will continue. 6. Venous stasis, bilateral lower legs. Elevate as much as possible. 7. DVT prophylaxis. The patient is on Xarelto HOME MEDICATIONS: 1. Digoxin 250 mcg daily. 2. p.o. daily 3. Metoprolol succinate 25 mg p.o. daily. 4. Midodrine 10 mg p.o. t.i.d. 5. Potassium chloride 10 mEq p.o. b.i.d. 6. Rozerem 8 mg p.o. q.h.s. 7. Xarelto 20 mg p.o. daily. 8. (cut out) 100 mg p.o. daily. Proctosigmoiditis, cellulitis of the buttocks: We will get a wound care consult. Continue with IV Rocephin. Monitor improvement or progression of the proctosigmoiditis and cellulitis on the butt. The patient will be admitted observation status. We will follow up on blood cultures. We will follow up on digoxin level. The patient will be admitted to the hospitalist service. We will follow up on the blood cultures, digoxin level, CMP, CBC with diff. MTDD
[2020-11-12] MEDS: TORSEMIDE 20 MG TAB PO SCH (11:03)
[2020-11-12] MEDS: DIGOXIN 0.25 MG TAB PO SCH (11:31)
--- NOTE | 2020-11-12 12:44 | IPN ---
PROGRESS NOTE DATE: 11/12/2020 SUBJECTIVE: Ta Mccarthy is readmitted. He was just discharged 11/02/2020, basically left against medical advice. He has a poor home social situation and is declining placement in an assisted living because, "I'm worried I wouldn't see my girlfriend." He had been admitted with congestive heart failure with a reduced ejection fraction, recurrent hematuria with a staghorn calculi, ESBL klebsiella UTI, history of orthostatic hypotension. He left against medical advice 11/02/2020. He has a history of noncompliance leading to frequent admissions. He was admitted overnight. I do not have a history and physical back yet. It looks like the diagnosis was proctosigmoiditis. He has been having irritation in the buttocks with erythema and stage I skin injury. He has morbid obesity. In the hospital he needed a lot of help just getting out of bed. He should never have gone home but he insisted on discharge home. He had been seen by Surgery. OBJECTIVE: VITAL SIGNS: Blood pressure 102/66, pulse 70, respiratory rate 19, 95% O2 saturation on room air. GENERAL APPEARANCE: Morbidly obese, lying in bed. HEENT: Unremarkable. LUNGS: Decreased breath sounds. HEART: Regular rate and rhythm. ABDOMEN: Obese, nontender. No masses. He has a large ventral hernia. EXTREMITIES: 1+ peripheral edema, venous stasis dermatitis. Erythema of the gluteus as noted previously. LABS: White count 7.8, hemoglobin 10.2, platelets 137. Sodium 137, potassium 3.9, BUN 15, creatinine 0.8, glucose 98. C-reactive protein is 4.29. Digoxin level 1.4. IMPRESSION AND PLAN: 1. Bleeding skin breakdown of his buttocks. We are stopping the IV Vancomycin and starting Bactrim DS twice a day. Check renal function on the Bactrim. No indication for IV antibiotics. He is not septic and they do not look cellulitic. Surgery has been consulted. We will get Wound Care in to see and consult Physical and Occupational Therapy. 2. Congestive heart failure with reduced ejection fraction. Continue his home medicines. He looks compensated on exam. 3. History of orthostatic hypotension. This complicates his rehabilitation. 4. Atrial fibrillation. His rate is controlled and he is anticoagulated. 5. Chronic left foot and leg numbness. This complicates his rehabilitation. It is a chronic problem for him. 6. Recent ESBL klebsiella urinary tract infection. No current urinary symptoms. The patient's primary care provider is Dr. Vasquez at the [facility] and has an appointment already set up for 11/14/2020 for hospital followup.
[2020-11-12 14:00] VITALS: BP 108/62
[2020-11-12 18:00] VITALS: BP 102/63
[2020-11-12 19:44] VITALS: BP 102/53
[2020-11-12] MEDS: RAMELTEON 8 MG TAB (ROZEREM) PO SCH (20:32)
[2020-11-13] VITALS (7 sets, daily range): BP systolic 93–111; BP diastolic 53–64
[2020-11-13 05:59] LABS: BASO # 0.1 10^3/uL (0.0-0.2); BASO % 0.7 % (0.0-1.0); EOS # 0.3 10^3/uL (0.0-0.5); EOS % 4.2 % (0.0-3.0); HEMATOCRIT 31.3 % (42.0-52.0); HEMOGLOBIN 10.2 g/dl (13.5-17.5); LYMPH # 1.2 10^3/uL (1.5-5.0); LYMPH % 16.4 % (24.0-44.0); MEAN CORPUSCULAR HEMOGLOBIN 32.2 pg (27.0-33.0); MEAN CORPUSCULAR HGB CONC 32.6 g/dl (32.0-36.5); MEAN CORPUSCULAR VOLUME 98.7 fl (80.0-96.0); MONO # 0.6 10^3/uL (0.0-0.8); MONO % 8.2 % (2.0-8.0); NEUTROPHILS # 5.1 10^3/uL (1.5-8.5); NEUTROPHILS % 68.9 % (36.0-66.0); PLATELET COUNT, AUTOMATED 131 10^3/uL (150-450); RED BLOOD COUNT 3.17 10^6/uL (4.30-6.10); WHITE BLOOD COUNT 7.5 10^3/uL (4.0-10.0)
[2020-11-13 06:19] LABS: ALT/SGPT 14 U/L (12-78); BILIRUBIN,TOTAL 0.9 MG/DL (0.2-1.0); BLOOD UREA NITROGEN 15 MG/DL (7-18); CALCIUM LEVEL 7.7 MG/DL (8.8-10.2); CARBON DIOXIDE LEVEL 27 MEQ/L (21-32); CHLORIDE LEVEL 103 MEQ/L (98-107); CREATININE FOR GFR 0.98 MG/DL (0.70-1.30); GLOMERULAR FILTRATION RATE > 60.0 (>49); GLUCOSE, FASTING 90 MG/DL (70-100); POTASSIUM SERUM 3.6 MEQ/L (3.5-5.1); SODIUM LEVEL 135 MEQ/L (136-145); TOTAL PROTEIN 7.2 GM/DL (6.4-8.2)
--- NOTE | 2020-11-13 07:20 | ECGEPIP ---
[facility] Test Date: 2020-11-12 Pat Name: JULIANO JENKINS Department: Room: [place] [address] Gender: Male [employer]: [facility] : 1955 Requested By: Kasandra Bates [facility] Order Number: [id number] Reading MD: Randall Ramirez Measurements Intervals [place] Rate: 67 P: 59 HI: 194 QRS: 0 QRSD: 90 T: 247 QT: 370 QTc: 390 Interpretive Statements Normal sinus rhythm Low voltage QRS ST & T wave abnormality QTc normalized from tracing done 10-29-20 Electronically Signed on 11-13-2020 7:20:08 EDT by Randall Ramirez
[2020-11-13] MEDS: SERTRALINE 100 MG TAB PO SCH (07:44)
[2020-11-13] MEDS: RIVAROXABAN 20 MG TAB (XARELTO) PO SCH (07:44)
[2020-11-13] MEDS: POTASSIUM CHLORIDE 10 MEQ SR TABLET PO SCH ×2 (07:44→20:05)
[2020-11-13] MEDS: BACTRIM 160MG/800MG DS TAB PO SCH ×2 (07:44→20:05)
[2020-11-13] MEDS: LEVOTHYROXINE 25MCG TABLET (0.025MG) PO SCH (07:44)
[2020-11-13] MEDS: GABAPENTIN 100 MG CAP PO SCH ×3 (07:44→20:05)
[2020-11-13] MEDS: TORSEMIDE 20 MG TAB PO SCH (07:45)
[2020-11-13] MEDS: DIGOXIN 0.25 MG TAB PO SCH (07:45)
[2020-11-13] MEDS: MIDODRINE 5 MG TAB PO SCH ×3 (07:46→16:14)
[2020-11-13] MEDS: NYSTATIN 100,000 UNITS/GM TOPICAL PWD 15 GM TOP SCH ×2 (07:50→20:05)
[2020-11-13] MEDS: METOPROLOL SUCC *XL* 25MG TAB (TopROL *XL*) PO SCH (08:40)
--- NOTE | 2020-11-13 08:54 | IPNPDOC ---
Text Note Date of Service The patient was seen on 11/13/20. NOTE General surgery. Dr. Cunningham The patient is a 65-year-old male with skin breakdown of the buttocks, currently on Bactrim twice daily. Afebrile. VSS Awake and alert, resting in bed, no acute distress MMM Lungs with decreased breath sounds but clear S1-S2 regular rate rhythm Abdomen obese, nontender with large ventral hernia Skin breakdown is noted on the buttocks bilaterally with a few open areas, scant drainage noted. Assessment/plan Skin breakdown buttocks. The patient is reviewed and examined as per Dr. Cunningham this morning. No surgical intervention necessary at this time. Continue with Bactrim p.o. twice daily. Continue with wound care VS,Fishbone, I+O VS, Fishbone, I+O Laboratory Tests 11/13/20 05:22 Vital Signs Date Time Temp Pulse Resp B/P (MAP) Pulse Ox O2 Delivery O2 Flow Rate FiO2 11/13/20 08:40 73 109/57 11/13/20 04:20 98.7 20 97 Room Air I&O- Last 24 Hours up to 6 AM 11/13/20 06:00 Intake Total 2520 ml Output Total 2550 ml Balance -30 ml Tabitha Jurado Nov 13, 2020 08:54
--- NOTE | 2020-11-13 09:50 | IPN ---
PROGRESS NOTE DATE: 11/13/2020 SUBJECTIVE: Ta is seen in [facility] [place] admitted with cellulitis of his buttocks due to poor self-care. OBJECTIVE: GENERAL APPEARANCE: Resting comfortably and feels well. He is lying in bed in no distress. VITAL SIGNS: BP 109/57. His systolic pressure has been between 90 to 100 (prone to orthostatic hypotension and uses midodrine) chronically. Heart rate 73. HEENT: Unremarkable. No JVD. LUNGS: Clear. HEART: Regular rate and rhythm. ABDOMEN: Obese and nontender with no masses. EXTREMITIES: Trace peripheral edema. Venous stasis dermatitis present. Intertrigo of the groin crease is noted. IMPRESSION: 1. Cellulitis of his buttocks. He is on Bactrim for this. Tomorrow we will try to visualize the area. It takes quite a bit of nursing staff to get him turned to the point where we can see this. 2. Morbid obesity interfering with care. His weight is over 300 pounds. We previously discussed the importance of weight loss. 3. Congestive heart failure with reduced ejection fraction. He seems compensated on exam. 4. Orthostatic hypotension. Continue midodrine on a p.r.n. basis. 5. Atrial fibrillation. Continue anticoagulant. He is on digoxin and metoprolol. The metoprolol sometimes has to be held for hypotension. 6. Recent extended-spectrum beta-lactamase (ESBL) Klebsiella urinary tract infection (UTI) currently asymptomatic.
[2020-11-13] MEDS: RAMELTEON 8 MG TAB (ROZEREM) PO SCH (20:05)
--- NOTE | 2020-11-13 20:56 | ECHO ---
"ECHOCARDIOGRAM DATE OF PROCEDURE: 11/13/2020 Age: 65 Gender: Male Height: 168 cm Weight: 148 kg REFERRING PHYSICIAN: Dr. Kasandra Wiley INDICATION: Pericardial effusion MEASUREMENTS: | IVS 0.9 cm LV 4.5 cm LVPW 1.1 cm LA 4.8 cm Aorta 3.0 cm Left atrium volume index 45 IVC 2.7 cm DOPPLER MEASUREMENT Mitral E wave velocity 78 Mitral A wave 79 E prime septal 11.2 E prime lateral 7.7 FINDINGS: This study is of fair technical quality corresponding to patient's body habitus. There is underlying sinus rhythm. Normal LV size with probably normal LV systolic function based on fair visualization. I certainly cannot rule out segmental wall motion abnormalities. Right ventricle was poorly visualized, but grossly appears normal. Left atrium is severely enlarged. Right atrium was poorly seen, but appears at least mildly enlarged based on limited views. Aortic valve is tricuspid. It is sclerotic and seems to have preserved mobility. Mitral valve exhibits normal mobility, there are mild mitral annular calcifications. Tricuspid and pulmonic valves appear normal. Small pericardial effusion without any signs of cardiac compression is noted. Some degree of pericardial fat pad is also noted. Inferior vena cava is dilated and there is appreciable collapse with inspiration, indicative of very high central venous pressure. Aortic root is normal. Aortic arch and abdominal aorta were not well seen. Doppler interrogation reveals no significant aortic valvular disease. The same applies for mitral valve. There is trace tricuspid insufficiency. Unfortunately quality of TR jet was not sufficient or adequate to estimate pulmonary artery pressure. Evaluation of diastolic function indicates likely grade 2 diastolic dysfunction. CONCLUSIONS: 1. Study is of fair technical quality, underlying sinus rhythm. 2. Normal LV size with grossly preserved LV systolic function and grade 2 diastolic dysfunction. 3. Aortic sclerosis, but no stenosis or insufficiency. 4. No significant mitral, tricuspid or pulmonic valvular disease. 5. Small pericardial effusion. 6. Very high central venous pressure. 7. Unable to estimate pulmonary artery pressure. MTDD"
[2020-11-14 06:00] VITALS: BP 103/63
[2020-11-14] MEDS: NYSTATIN 100,000 UNITS/GM TOPICAL PWD 15 GM TOP SCH ×2 (08:03→21:02)
[2020-11-14] MEDS: TORSEMIDE 20 MG TAB PO SCH ×2 (08:04→18:10)
[2020-11-14] MEDS: SERTRALINE 100 MG TAB PO SCH (08:04)
[2020-11-14] MEDS: LEVOTHYROXINE 25MCG TABLET (0.025MG) PO SCH (08:04)
[2020-11-14] MEDS: GABAPENTIN 100 MG CAP PO SCH ×3 (08:04→21:00)
[2020-11-14] MEDS: MIDODRINE 5 MG TAB PO SCH ×3 (08:04→17:05)
[2020-11-14] MEDS: BACTRIM 160MG/800MG DS TAB PO SCH ×2 (08:04→21:00)
[2020-11-14] MEDS: RIVAROXABAN 20 MG TAB (XARELTO) PO SCH (08:04)
[2020-11-14] MEDS: POTASSIUM CHLORIDE 10 MEQ SR TABLET PO SCH ×2 (08:04→21:01)
[2020-11-14] MEDS: DIGOXIN 0.25 MG TAB PO SCH (08:05)
[2020-11-14] MEDS: METOPROLOL SUCC *XL* 25MG TAB (TopROL *XL*) PO SCH (08:05)
[2020-11-14 09:09] LABS: BASO % 0.5 % (0.0-1.0); EOS # 0.3 10^3/uL (0.0-0.5); EOS % 4.2 % (0.0-3.0); HEMATOCRIT 32.3 % (42.0-52.0); HEMOGLOBIN 10.6 g/dl (13.5-17.5); LYMPH # 1.4 10^3/uL (1.5-5.0); LYMPH % 17.3 % (24.0-44.0); MEAN CORPUSCULAR HEMOGLOBIN 32.1 pg (27.0-33.0); MEAN CORPUSCULAR HGB CONC 32.8 g/dl (32.0-36.5); MEAN CORPUSCULAR VOLUME 97.9 fl (80.0-96.0); MONO # 0.8 10^3/uL (0.0-0.8); MONO % 9.6 % (2.0-8.0); NEUTROPHILS # 5.4 10^3/uL (1.5-8.5); NEUTROPHILS % 66.4 % (36.0-66.0); PLATELET COUNT, AUTOMATED 144 10^3/uL (150-450); WHITE BLOOD COUNT 8.2 10^3/uL (4.0-10.0)
[2020-11-14 09:40] LABS: ALT/SGPT 13 U/L (12-78); BILIRUBIN,TOTAL 0.8 MG/DL (0.2-1.0); BLOOD UREA NITROGEN 14 MG/DL (7-18); CALCIUM LEVEL 7.9 MG/DL (8.8-10.2); CARBON DIOXIDE LEVEL 26 MEQ/L (21-32); CHLORIDE LEVEL 101 MEQ/L (98-107); CREATININE FOR GFR 1.08 MG/DL (0.70-1.30); GLOMERULAR FILTRATION RATE > 60.0 (>49); GLUCOSE, FASTING 112 MG/DL (70-100); POTASSIUM SERUM 4.1 MEQ/L (3.5-5.1); SODIUM LEVEL 137 MEQ/L (136-145); TOTAL PROTEIN 7.7 GM/DL (6.4-8.2)
--- NOTE | 2020-11-14 11:06 | IPN ---
PROGRESS NOTE DATE: 11/14/2020 SUBJECTIVE: [facility] He was admitted with cellulitis of his buttocks area. CT showed proctosigmoiditis, but he really has had no colitis or proctitis symptoms. Stooling has been normal. He does have a double pigtail catheter, right kidney, in appropriate position of the right collecting system. This looks like it was placed on 09/13/[address] Live. Patient has no-showed for four consecutive urology appointments, probably due to repeated hospitalizations. The original plan was to remove this in a month. It has now been in for two months. PHYSICAL EXAMINATION: Afebrile. Vital signs stable. LUNGS: Clear. HEART: Regular rhythm. ABDOMEN: Soft. EXTREMITIES: No peripheral edema. Venous stasis dermatitis present. IMPRESSION: 1. Right ureteral stent. I will consult urology and ask Dr. Live to see him and deal with this in the hospital. It has been in a month longer than planned. 2. Cellulitis of the buttocks. White count is normal. Continue Bactrim DS tablets. 3. Questionable proctosigmoiditis. He has no symptoms at all to suggest active proctosigmoiditis. 4. Morbid obesity. This complicates his care. 5. Recent extended spectrum beta-lactamase (ESBL) Klebsiella pneumoniae. Currently asymptomatic. We need to get that stent out. 6. Congestive heart failure with reduced ejection fraction. Compensated on exam. 7. Orthostatic hypotension. Uses midodrine, but still has episodes of orthostasis. 8. Atrial fibrillation. Anticoagulated and rate controlled. Blood pressure has recovered enough that he has gotten his metoprolol this morning.
--- NOTE | 2020-11-14 12:30 | IPN ---
PROGRESS NOTE DATE: 11/14/2020 ADDENDUM: I spoke with Josesito Live about Ta's urologic situation. The stent was placed on 09/13 and can remain in place for up to three months. He does not need to see him during this hospitalization. He can see him after he goes home from rehab. He would like to see him by early December, which will be three months since the stent was placed. He does not feel this should interfere with his discharge either home or preferably to rehab.
[2020-11-14 14:00] VITALS: BP 103/62
--- NOTE | 2020-11-14 17:58 | CR ---
CONSULTATION DATE: 11/14/2020 via telemedicine CONSULTATION REQUESTED BY: Kasandra Wiley REASON FOR CONSULTATION: Suggestions for buttocks wounds. Patient identified and verbal consent obtained . 65-year-old male admitted for change in bowel habit and incontinent stool and urine. When asked, the patient has not had a gastrointestinal (GI) workup. He was diagnosed with sigmoid diverticulitis by CT scan and also has a ventral hernia. On inspection, the patient is morbidly obese, has a poor hygiene and appears unkempt. By nursing history his living situation, is less than desirable and his daily activity is sedentary. His buttocks shows erythema with small, diffuse areas of superficial skin denuded, with minor bleeding. The areas of skin damage are bilateral in distribution involving both right and left buttocks. This is not cellulitis, and this is not a pressure injury. This is incontinent-associated skin damage. The treatment for this is to cleanse the affected areas with mild soap and water followed by Vashe wound cleanser. Cavilon advanced tissue protective should then be applied, with an applicator. Depends or appropriate undergarments to absorb any urine and/or stool incontinence should be provided. No antibiotics are indicated. Localized areas can be covered with foam dressings if desired but oftentimes is not necessary GI workup should be considered if patient does have abdominal pain, significant change in bowel habit, and/or his CT scan is suspicious for colonic pathology. Desitin can be used on discharge as this is an easy and good protective method of the for incontinent associated skin damage. LYNDA
[2020-11-14] MEDS: RAMELTEON 8 MG TAB (ROZEREM) PO SCH (21:00)
[2020-11-14 22:00] VITALS: BP 123/71
[2020-11-15] VITALS (7 sets, daily range): BP systolic 71–117; BP diastolic 46–73
[2020-11-15 06:24] LABS: BASO % 0.4 % (0.0-1.0); EOS # 0.3 10^3/uL (0.0-0.5); EOS % 4.2 % (0.0-3.0); HEMATOCRIT 31.4 % (42.0-52.0); HEMOGLOBIN 10.1 g/dl (13.5-17.5); LYMPH # 1.2 10^3/uL (1.5-5.0); LYMPH % 16.6 % (24.0-44.0); MEAN CORPUSCULAR HEMOGLOBIN 31.3 pg (27.0-33.0); MEAN CORPUSCULAR HGB CONC 32.2 g/dl (32.0-36.5); MEAN CORPUSCULAR VOLUME 97.2 fl (80.0-96.0); MONO # 0.6 10^3/uL (0.0-0.8); MONO % 8.6 % (2.0-8.0); NEUTROPHILS # 5.1 10^3/uL (1.5-8.5); NEUTROPHILS % 68.7 % (36.0-66.0); PLATELET COUNT, AUTOMATED 127 10^3/uL (150-450); RED BLOOD COUNT 3.23 10^6/uL (4.30-6.10); WHITE BLOOD COUNT 7.5 10^3/uL (4.0-10.0)
[2020-11-15 06:56] LABS: ALT/SGPT 15 U/L (12-78); BILIRUBIN,TOTAL 0.7 MG/DL (0.2-1.0); BLOOD UREA NITROGEN 13 MG/DL (7-18); CALCIUM LEVEL 7.3 MG/DL (8.8-10.2); CARBON DIOXIDE LEVEL 30 MEQ/L (21-32); CHLORIDE LEVEL 100 MEQ/L (98-107); GLOMERULAR FILTRATION RATE > 60.0 (>49); GLUCOSE, FASTING 86 MG/DL (70-100); SODIUM LEVEL 135 MEQ/L (136-145); TOTAL PROTEIN 7.3 GM/DL (6.4-8.2)
[2020-11-15] MEDS: METOPROLOL SUCC *XL* 25MG TAB (TopROL *XL*) PO SCH (08:40)
[2020-11-15] MEDS: BACTRIM 160MG/800MG DS TAB PO SCH (08:42)
[2020-11-15] MEDS: GABAPENTIN 100 MG CAP PO SCH ×3 (08:42→20:42)
[2020-11-15] MEDS: POTASSIUM CHLORIDE 10 MEQ SR TABLET PO SCH ×2 (08:42→20:42)
[2020-11-15] MEDS: LEVOTHYROXINE 25MCG TABLET (0.025MG) PO SCH (08:42)
[2020-11-15] MEDS: SERTRALINE 100 MG TAB PO SCH (08:42)
[2020-11-15] MEDS: RIVAROXABAN 20 MG TAB (XARELTO) PO SCH (08:43)
[2020-11-15] MEDS: MIDODRINE 5 MG TAB PO SCH ×3 (08:43→16:05)
[2020-11-15] MEDS: TORSEMIDE 20 MG TAB PO SCH ×2 (08:43→16:06)
[2020-11-15] MEDS: DIGOXIN 0.25 MG TAB PO SCH (08:43)
[2020-11-15] MEDS: NYSTATIN 100,000 UNITS/GM TOPICAL PWD 15 GM TOP SCH ×2 (08:44→20:42)
--- NOTE | 2020-11-15 10:49 | IPN ---
PROGRESS NOTE DATE: 11/15/2020 SUBJECTIVE: Ta is [facility]. He has orthostatic hypotension and this morning his pressure was 71/46. He is asymptomatic when he was lying in bed which is how he spends most of his day both in the hospital or at home. We are talking about disposition issues with Ta. He is rejecting any referral for rehab. Wound care is going to be problematic. No home health nursing agency will pick him up due to compliance problems in the past. OBJECTIVE: VITAL SIGNS: Afebrile, blood pressure 71/46, recheck was 106/55. GENERAL: He is alert, conversant, in no distress. LUNGS: Clear. HEART: Regular rhythm. ABDOMEN: Obese, nontender, no masses. EXTREMITIES: Trace venous stasis dermatitis. SKIN: Cellulitis of the buttocks has resolved. IMPRESSION: 1. Cellulitis of buttocks, this is resolved. I am stopping his Bactrim. I do not want him to develop diarrhea from this. Wound care per Dr. Knight, made recommendations but no orders were placed. The nursing staff will put those orders in. Home care is going to be a problem. No home health agency will see him. He thinks his girlfriend will be able to do all of that, the wound care, I am deeply skeptical this will happen in a reliable fashion. 2. Renal stones, right ureteral stent in place. See addendum from yesterday. Dr. Live will see him as an outpatient sometime in the next month. 3. Morbid obesity, this complicates his care. 4. Orthostatic hypotension, intermittent problem. He does not spend much time out of bed so he is unlikely to be symptomatic from this. 5. Congestive heart failure with reduced ejection fraction, I restarted his diuretics yesterday. Will plan to hold on this, avoiding hypotension. 6. Atrial fibrillation, his rate is controlled and he is adequately anticoagulated.
[2020-11-15] MEDS: RAMELTEON 8 MG TAB (ROZEREM) PO SCH (20:42)
[2020-11-16 02:00] VITALS: BP 112/59
[2020-11-16 06:00] VITALS: BP 111/53
[2020-11-16] MEDS: POTASSIUM CHLORIDE 10 MEQ SR TABLET PO SCH ×2 (08:00→20:26)
[2020-11-16] MEDS: SERTRALINE 100 MG TAB PO SCH (08:00)
[2020-11-16] MEDS: GABAPENTIN 100 MG CAP PO SCH ×3 (08:00→20:26)
[2020-11-16] MEDS: DIGOXIN 0.25 MG TAB PO SCH (08:01)
[2020-11-16] MEDS: LEVOTHYROXINE 25MCG TABLET (0.025MG) PO SCH (08:01)
[2020-11-16] MEDS: MIDODRINE 5 MG TAB PO SCH ×3 (08:01→16:53)
[2020-11-16] MEDS: METOPROLOL SUCC *XL* 25MG TAB (TopROL *XL*) PO SCH (08:01)
[2020-11-16] MEDS: RIVAROXABAN 20 MG TAB (XARELTO) PO SCH (08:01)
[2020-11-16] MEDS: NYSTATIN 100,000 UNITS/GM TOPICAL PWD 15 GM TOP SCH ×2 (08:02→20:26)
[2020-11-16] MEDS: TORSEMIDE 20 MG TAB PO SCH ×2 (08:02→16:54)
[2020-11-16 10:00] VITALS: BP 102/62
--- NOTE | 2020-11-16 11:43 | DSES ---
DISCHARGE SUMMARY DATE OF ADMISSION: 11/11/2020 DATE OF DISCHARGE: 11/16/2020 PRINCIPAL DIAGNOSIS: Cellulitis of gluteal region. SECONDARY DIAGNOSES: 1. Morbid obesity complicating care. 2. Renal stones with right ureteral stent in place. 3. Orthostatic hypotension. 4. Congestive heart failure, reduced ejection fraction. 5. Atrial fibrillation. HISTORY: The patient was admitted with cellulitis of the buttocks. He had signed out AMA from the hospital. He has morbid obesity and was strongly recommended then (and now) to go to the rehab program. He declined then and he declines now. HOSPITAL COURSE: He was admitted to a medical bed. Hygiene was poor. Nursing staff got things cleaned up in his buttocks area. It looked cellulitic. He was put on Bactrim and improved on a daily basis primarily due to improved hygiene. Wound Center was consulted. They made recommendations that are in the inpatient notes. [facility] is now willing to pick his case up again so he will go home with [facility] following him that should at least postpone readmission for a little while. An echocardiogram done was a difficult study due to his size. He looked to have a grossly preserved left ventricular systolic function, grade 2 diastolic dysfunction. Left atrium 45 mm. Could not determine pulmonary artery pressure due to inadequate study. PHYSICAL EXAM: On day of discharge, he is resting comfortably. His BP is 102/62. He is afebrile. Lungs are clear. Heart regular rate and rhythm. Abdomen obese, nontender, no masses. Trace peripheral edema. Cellulitis has resolved. DISPOSITION: He is discharged home in improved and stable condition. He will follow up with his primary care provider. He already has an appointment for next week. Activity as tolerated. A 2 gm sodium diet, 800 mL daily fluid restrictions. DISCHARGE MEDICATIONS: Medications will continue to be: 1. Digoxin 0.25 mg daily. 2. Gabapentin 100 mg three times a day. 3. Levothyroxine 25 mcg daily. 4. Metoprolol succinate 25 mg daily. 5. Midodrine 10 mg three times a day. 6. Potassium chloride 10 mEq twice a day. 7. Rozerem 8 mg once daily at bedtime. 8. Xarelto 20 mg daily. 9. Torsemide 40 mg daily. 10. Sertraline 100 mg daily. Wound care per Dr. Knight. At the time of this dictation, no pending labs.
[2020-11-16 14:00] VITALS: BP 118/68
[2020-11-16 18:00] VITALS: BP 113/67
[2020-11-16] MEDS: RAMELTEON 8 MG TAB (ROZEREM) PO SCH (20:26)
[2020-11-16 22:00] VITALS: BP 110/66
[2020-11-17 02:00] VITALS: BP 107/63
[2020-11-17 06:00] VITALS: BP 105/62
[2020-11-17] MEDS: GABAPENTIN 100 MG CAP PO SCH (09:54)
[2020-11-17] MEDS: LEVOTHYROXINE 25MCG TABLET (0.025MG) PO SCH (09:54)
[2020-11-17] MEDS: RIVAROXABAN 20 MG TAB (XARELTO) PO SCH (09:54)
[2020-11-17] MEDS: SERTRALINE 100 MG TAB PO SCH (09:54)
[2020-11-17] MEDS: POTASSIUM CHLORIDE 10 MEQ SR TABLET PO SCH (09:54)
[2020-11-17] MEDS: DIGOXIN 0.25 MG TAB PO SCH (09:55)
[2020-11-17] MEDS: MIDODRINE 5 MG TAB PO SCH (09:55)
[2020-11-17] MEDS: TORSEMIDE 20 MG TAB PO SCH (09:55)
[2020-11-17 09:56] VITALS: BP 105/61
[2020-11-17] MEDS: METOPROLOL SUCC *XL* 25MG TAB (TopROL *XL*) PO SCH (09:56)
[2020-11-17] MEDS: NYSTATIN 100,000 UNITS/GM TOPICAL PWD 15 GM TOP SCH (09:56)
[2020-11-17 10:00] VITALS: BP 103/61
== END 2020-11-17 12:39 | disposition home health service (06) | DRG 603 ==
LOC: M ED 14:57 → EDBD 14:57 → M ED INP 22:18 → ENRESERVTM 23:55 → ENRESERVDT 23:55 → M MSPAV 11-12 00:38 → UNDODISIN 11-16 13:42
PROVIDERS: ADMIT Family Medicine; ATTEND Family Medicine
DX: L03.317 Cellulitis of buttock (principal); I50.32 Chronic diastolic (congestive) heart failure; Z68.43 Body mass index [BMI] 50.0-59.9, adult; Z87.891 Personal history of nicotine dependence; K59.09 Other constipation; I48.91 Unspecified atrial fibrillation; Z20.822 Contact with and (suspected) exposure to COVID-19; Z96.642 Presence of left artificial hip joint; I87.2 Venous insufficiency (chronic) (peripheral); D63.8 Anemia in other chronic diseases classified elsewhere; Z96.0 Presence of urogenital implants; Z79.01 Long term (current) use of anticoagulants; Z79.899 Other long term (current) drug therapy; R60.1 Generalized edema; I95.1 Orthostatic hypotension; F32.9 Major depressive disorder, single episode, unspecified; E66.01 Morbid (severe) obesity due to excess calories; G47.00 Insomnia, unspecified; I73.9 Peripheral vascular disease, unspecified; Z91.19 Patient's noncompliance with other medical treatment and regimen; N20.0 Calculus of kidney

== ENCOUNTER 2020-12-24 12:55 | Emergency (ER) | payer OTHER, MEDICAID, MEDICARE ==
[~2020-12-24] VITALS: Ht 160 cm; Wt 168.2 kg
[~2020-12-24 12:55] MED LIST changes: +DOK1CAP4 PO; -DOK1CAP7 PO; +MIDO10TA PO; +POTA1TAB23 PO
--- NOTE | 2020-12-24 16:16 | REP ---
INDICATION: right hip pain; s/p fall. COMPARISON: Comparison radiograph June 17, 2020.. TECHNIQUE: AP and frogleg views of the right hip are provided. FINDINGS: Right hip radiographs demonstrate severe osteoarthritis with joint space narrowing, exuberant acetabular and femoral head osteophyte formation, and some acetabular remodeling. These findings are unchanged from the June 17, 2020 study. No hip or right hemipelvis fracture is appreciated. Incidental note is made of a right ureteral stent in place in the pelvis. IMPRESSION: No hip fracture seen. Severe osteoarthritis unchanged. Right ureteral stent noted. <Electronically signed by Perez Marie > 12/24/20 [id number]
[2020-12-24 18:30] VITALS: BP 98/56
[2020-12-25] MEDS ORDERED: AMIT10TA7 PO (09:39)
== END 2020-12-24 21:11 | disposition home or self-care (01) ==
LOC: EDBD 12:55 → M ED 12:55
DX: S70.01XA Contusion of right hip, initial encounter (principal); W01.0XXA Fall on same level from slipping, tripping and stumbling without subsequent striking against object, initial encounter; Y92.009 Unspecified place in unspecified non-institutional (private) residence as the place of occurrence of the external cause; Y93.89 Activity, other specified; Y99.8 Other external cause status; I11.0 Hypertensive heart disease with heart failure; I48.91 Unspecified atrial fibrillation; Z79.890 Hormone replacement therapy; Z79.899 Other long term (current) drug therapy; Z87.891 Personal history of nicotine dependence; Z90.49 Acquired absence of other specified parts of digestive tract; Z98.890 Other specified postprocedural states

== ENCOUNTER 2020-12-25 01:39 | Observation (INO) | payer MEDICAID, MEDICARE, OTHER ==
[~2020-12-25] VITALS: Ht 160 cm; Wt 154.5 kg
--- NOTE | 2020-12-25 03:41 | REPVR ---
PROCEDURE INFORMATION: Exam: CT Cervical Spine Without Contrast Exam date and time: 12/25/2020 1:43 AM Age: 65 years old Clinical indication: Neck pain; Additional info: Fall TECHNIQUE: Imaging protocol: Computed tomography images of the cervical spine without contrast. Radiation optimization: All CT scans at this facility use at least one of these dose optimization techniques: automated exposure control; mA and/or kV adjustment per patient size (includes targeted exams where dose is matched to clinical indication); or iterative reconstruction. COMPARISON: No relevant prior studies available. FINDINGS: Limitations: Motion artifact degrades the image quality. Bones/joints: The alignment of the cervical spine is within normal limits. There is no fracture or subluxation. The vertebral body heights are preserved. No suspicious osteolytic or osteoblastic lesion is noted. There is no cervical rib. Discs/Spinal canal/Neural foramina: The disc heights are maintained. No spinal canal or neural foraminal stenosis is noted in the cervical spine. There are endplate spurs and osteoarthritis of the facet joints at several levels. Prevertebral Space: No prevertebral soft tissue swelling. Pleural spaces: There are right larger than left pleural effusions. The pleural spaces were not fully imaged. Vasculature: There are atherosclerotic calcifications. Soft tissues: Unremarkable. No soft tissue fluid collection. IMPRESSION: 1. No fracture or subluxation in the cervical spine. 2. Right larger than left pleural effusions, which were not fully imaged. Electronically signed by: Jarad Pimentel On 12/25/2020 03:40:58 AM
--- NOTE | 2020-12-25 03:42 | REPVR ---
PROCEDURE INFORMATION: Exam: CT Head Without Contrast Exam date and time: 12/25/2020 1:43 AM Age: 65 years old Clinical indication: Injury or trauma; Fall; Concussion/head injury TECHNIQUE: Imaging protocol: Computed tomography of the head without contrast. Radiation optimization: All CT scans at this facility use at least one of these dose optimization techniques: automated exposure control; mA and/or kV adjustment per patient size (includes targeted exams where dose is matched to clinical indication); or iterative reconstruction. COMPARISON: CT Head without contrast 10/29/2020 7:07 PM FINDINGS: Brain: No acute intracranial hemorrhage is seen. There is no CT evidence for an acute large vessel territorial infarct. No mass effect, midline shift, or herniation is noted. Cerebral ventricles: The ventricles are mildly dilated in proportion to the sulci, which is compatible with mild generalized cerebral volume loss that is similar in appearance compared to the prior CT head on 10/29/2020. Paranasal sinuses: The sinuses are well-aerated. No air-fluid levels are noted in the sinuses. Mastoid air cells: There is mild opacification of the mastoid air cells bilaterally. Auditory system: There are soft tissues opacities in the external auditory canals, which likely represent cerumen. Orbital cavity: The globes and orbits are intact. Bones/joints: The skull is intact. No suspicious osteolytic or osteoblastic lesion. Soft tissues: There is soft tissue swelling and edema along the right and left posterolateral aspect of the head. IMPRESSION: 1. Intact skull. No acute intracranial hemorrhage or acute intracranial abnormality. 2. Soft tissue swelling and edema along the right and left posterolateral aspect of the head. Electronically signed by: Jarad Pimentel On 12/25/2020 03:41:37 AM
[2020-12-25 04:35] LABS: BASO % 0.3 % (0.0-1.0); EOS # 0.4 10^3/uL (0.0-0.5); HEMOGLOBIN 9.6 g/dl (13.5-17.5); LYMPH # 1.1 10^3/uL (1.5-5.0); LYMPH % 9.1 % (24.0-44.0); MEAN CORPUSCULAR HEMOGLOBIN 31.8 pg (27.0-33.0); MEAN CORPUSCULAR VOLUME 99.3 fl (80.0-96.0); MONO # 1.3 10^3/uL (0.0-0.8); MONO % 10.7 % (2.0-8.0); NEUTROPHILS % 75.8 % (36.0-66.0); PLATELET COUNT, AUTOMATED 172 10^3/uL (150-450); RED BLOOD COUNT 3.02 10^6/uL (4.30-6.10); WHITE BLOOD COUNT 11.9 10^3/uL (4.0-10.0)
[2020-12-25 05:03] LABS: ALBUMIN 2.8 GM/DL (3.2-5.2); ALT/SGPT 12 U/L (12-78); BILIRUBIN,TOTAL 1.9 MG/DL (0.2-1.0); BLOOD UREA NITROGEN 9 MG/DL (7-18); CALCIUM LEVEL 7.8 MG/DL (8.8-10.2); CARBON DIOXIDE LEVEL 30 MEQ/L (21-32); CHLORIDE LEVEL 100 MEQ/L (98-107); CK-MB VALUE MASS < 1.0 NG/ML (<3.6); CPK CREATINE PHOSPHOKINASE 41 U/L (39-308); CREATININE FOR GFR 0.85 MG/DL (0.70-1.30); GLOMERULAR FILTRATION RATE > 60.0 (>49); GLUCOSE, FASTING 89 MG/DL (70-100); MB/CK RELATIVE INDEX 2.44 (< OR =4); NT-PRO BNP 1000 PG/ML (<125); POTASSIUM SERUM 3.8 MEQ/L (3.5-5.1); SODIUM LEVEL 136 MEQ/L (136-145); TROPONIN I < 0.02 NG/ML (< 0.10)
[2020-12-25 05:39] LABS: RSV AMPLIFICATION NEGATIVE (NEGATIVE)
[2020-12-25] MEDS ORDERED: FUROSEMIDE 100MG/10ML VIAL (J1940) IV ONE (05:50)
--- NOTE | 2020-12-25 06:01 | REPVR ---
PROCEDURE INFORMATION: Exam: XR Chest Exam date and time: 12/25/2020 4:07 AM Age: 65 years old Clinical indication: Other: ? Effusion TECHNIQUE: Imaging protocol: XR of the chest. Views: 1 view. COMPARISON: CR Chest, 2 view PA, Lat 10/29/2020 4:59 PM FINDINGS: Lungs: Pulmonary vascular congestion. Mild basilar atelectasis. No consolidation. Pleural spaces: Moderate layering right pleural effusion and probable small left pleural effusion. No evidence of pneumothorax. Heart/Mediastinum: Stable cardiomegaly and mediastinal contours. Bones/joints: No acute bony abnormalities. Degenerative changes. IMPRESSION: Pulmonary vascular congestion with bilateral pleural effusions, right greater than left. Findings suggest CHF or fluid overload. Electronically signed by: Drew Salgado On 12/25/2020 06:00:35 AM
[2020-12-25 06:20] LABS: DIGOXIN LEVEL 1.3 NG/ML (0.5-2.0)
--- NOTE | 2020-12-25 07:50 | ECGEPIP ---
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
[2020-12-25] MEDS ORDERED: AMIT10TA7 PO (09:39)
[2020-12-25] MEDS ORDERED: HOME MED LIST COMPLETE! XX SCH (09:40)
[2020-12-25] MEDS ORDERED: AMITRIPTYLINE 10MG TABLET PO PRN (11:00)
--- NOTE | 2020-12-25 11:31 | HPEPDOC ---
[facility] Medical History & Physical Date of Admission Dec 25, 2020 Date of Service: Dec 25, 2020 Attending Physician: JAGDISH RUBIN DO History and Physical CHIEF COMPLAINT: Fall HISTORY OF PRESENT ILLNESS: Patient is a 65-year-old male who presented to the emergency department on 12/24/2020 after falling. Patient was seen and was discharged from the emergency department back home. Patient was brought home via ambulance. Patient was placed back in his recliner in the recliner rolled backwards causing the patient to hit his head on the radiator. Patient states that he did not hit his head on the radiator and that the chair did most of the damage however, EMS brought patient back to the emergency department because of the fall. Patient was also found to have increased edema in his legs up through his abdomen. Patient was given a dose of IV Lasix in the emergency department. Patient had a negative CT scan of the head and cervical spine. Because of the increased swelling and the possible head injury on blood thinners, patient was admitted into the hospital. PAST MEDICAL HISTORY: 1. Morbid obesity. 2. Type 2 diabetes. 3. Hypothyroidism. 4. Carpal tunnel syndrome 5. Arthritis 6. Anxiety 7. Paroxysmal atrial fibrillation on Xarelto 8. Kidney stone PAST SURGICAL HISTORY: 1. Left hip total arthroplasty. 2. Umbilical hernia repair. 3. Appendectomy. 4. Cholecystectomy SOCIAL HISTORY: Patient lives at home with his girlfriend and his girlfriend's son. Patient states he quit smoking in January 2020. Patient denies any alcohol or illicit drug use FAMILY HISTORY: Mother in her 70s. Had a history of type 2 diabetes and heart disease ALLERGIES: Please see below. REVIEW OF SYSTEMS: General: Patient denies fevers HEENT: Patient denies headaches Cardiovascular: Patient denies chest pain Respiratory: Patient denies shortness of breath, cough GI: Patient reports abdominal pain associated with umbilical hernia but denies nausea, vomiting, diarrhea : Patient denies increased frequency or pain with urination Extremities: Patient reports swelling in his lower extremities bilaterally Neurological: Patient denies numbness or tingling in legs Skin: Patient reports heat rash in his neck and bruising under his right eye from when his girlfriends granddaughter accidentally hit him a few days ago while playing Hematologic: Patient denies any easy bruising. Lymphatic: Patient denies any lumps lumps or bumps in neck, axilla, or groin HOME MEDICATIONS: Please see below. PHYSICAL EXAMINATION: VITAL SIGNS: Temperature 98.5, pulse 77, respiratory rate 20, blood pressure 109/55, pulse oximetry 96% on room air. General: Alert and oriented male patient who was laying in bed when I walked in the room. Patient did not appear to be in any acute distress. HEENT: Normocephalic, ecchymosis underneath the right eye, no swelling or obvious deformities of the skull, moist mucous membranes Neck: No lymphadenopathy or thyromegaly Cardiac: Difficult to auscultate due to body habitus however, the heart appeared to be in a regular rate and rhythm, no murmurs, normal S1, normal S2 Pulm: Difficult to auscultate due to body habitus however, lungs appear to be c lear to auscultation bilaterally. No wheezes, rhonchi, rales Abd: Nondistended, nontender to palpation, normal bowel sounds, obese, reducible but tender to palpation over a hernia that is superior and to the left of the umbilicus Ext: 3+ edema in the bilateral lower extremities up to the level of the hip. Patient also had edema in the flanks Neuro: Patient is able to move all 4 extremities on command and reports equal sensation to light touch in his upper and lower extremities bilaterally Skin: Patient had multiple areas on the outer parts of his upper extremity that were scabbed over. Patient did have ecchymosis under the right eye as above. Patient did have a papular rash in the anterior folds of his neck LABORATORY DATA: See below. IMAGING: CT of the cervical spine without contrast performed on 12/25/2020 was reported to show no fracture subluxation of the cervical spine. Right larger than left pleural effusions, which were not fully imaged. CT the head performed without contrast on 12/25/2020 was reported to show intact skull, no acute intracranial hemorrhage or acute intracranial abnormality. Soft tissue swelling and edema along the right and left posterior lateral aspects of the head. Chest x-ray performed on 12/25/2020 was reported to show pulmonary vascular congestion with bilateral pleural effusions, right greater than left. Findings suggest CHF or fluid overload. MICROBIOLOGY: Please see below. ASSESSMENT: 65-year-old male who presented to the hospital after falling earlier in the day and fell out of his recliner hitting his head was also found to be in fluid overload. . PLAN: 1. Fall with head injury. Patient is on blood thinners and the patient will be admitted for neuro checks. If the patient's neurochecks remain unchanged, patient can have neurochecks discontinued. If the patient does have abnormal neurochecks, patient will have repeat CT scan to rule out bleeding. We will continue to monitor the patient 2. Anasarca. Patient does have swelling through the legs up to the level of the umbilicus. Patient received a dose of 60 mg of IV Lasix in the emergency department and states he is feeling better from that. Patient received 40 mg IV Lasix every 8 hours if he is doing well tomorrow morning, patient can be switched back to his home dose. 3. Type 2 diabetes. Patient was placed on sliding scale with hypoglycemic protocol. 4. Paroxysmal atrial fibrillation. Patient is on Xarelto for anticoagulation. Continue with home medications. 5. Hypothyroidism. Continue patient's home medications. 6. Anxiety. Continue the patient's medications. 7. DVT prophylaxis: Full anticoagulation with Xarelto. 8. CODE STATUS: Full code. Disposition: Patient will be placed under observation on medical surgical floor. If the patient's neurochecks remain normal, patient can possibly be discharged tomorrow. Vital Signs Vital Signs Date Time Temp Pulse Resp B/P (MAP) Pulse Ox O2 Delivery O2 Flow Rate FiO2 12/25/20 06:49 98.5 12/25/20 05:00 77 20 109/55 (73) 96 Room Air Laboratory Data Labs 24H Laboratory Tests 2 12/25/20 04:23: Immature Granulocyte % (Auto) 1.1, Neutrophils (%) (Auto) 75.8H, Lymphocytes (%) (Auto) 9.1L, Monocytes (%) (Auto) 10.7H, Eosinophils (%) (Auto) 3.0, Basophils (%) (Auto) 0.3, Neutrophils # (Auto) 9.0H, Lymphocytes # (Auto) 1.1L, Monocytes # (Auto) 1.3H, Eosinophils # (Auto) 0.4, Basophils # (Auto) 0.0, Nucleated Red Blood Cells % (auto) 0.0, Anion Gap 6L, Glomerular Filtration Rate > 60.0, Calcium Level 7.8L, Total Bilirubin 1.9H, Direct Bilirubin 1.0H, Aspartate Amino Transf (AST/SGOT) 22, Alanine Aminotransferase (ALT/SGPT) 12, Alkaline Phosphatase 161H, Total Creatine Kinase 41, Creatine Kinase MB < 1.0, Creatine Kinase MB Relative Index 2.44, Troponin I < 0.02, KS-Ego-T-Type Natriuretic Peptide 1000H, Total Protein 7.0, Albumin 2.8L, Albumin/Globulin Ratio 0.7, Thyr oid Stimulating Hormone (TSH) 8.440H, Digoxin Level 1.3, Coronavirus (COVID- 19)(PCR) NEGATIVE, Influenza Type A (RT-PCR) NEGATIVE, Influenza Type B (RT-PCR) NEGATIVE, Respiratory Syncytial Virus (PCR) NEGATIVE CBC/BMP Laboratory Tests 12/25/20 04:23 Home Medications Scheduled Digoxin (Digoxin) 250 Mcg Tablet, 250 MCG PO DAILY Gabapentin (Gabapentin) 100 Mg Capsule, 100 MG PO TID Levothyroxine Sodium (Levothyroxine Sodium) 25 Mcg Tablet, 25 MCG PO DAILY Metoprolol Succinate (Metoprolol Succinate) 25 Mg Tab.er.24h, 25 MG PO DAILY Midodrine HCl (Midodrine HCl) 10 Mg Tablet, 10 MG PO TID Potassium Chloride (Potassium Chloride) 10 Meq Tablet.er, 10 MEQ PO BID Rivaroxaban (Xarelto) 20 Mg Tablet, 20 MG PO DAILY Sertraline Hcl (Zoloft) 100 Mg Tablet, 100 MG PO DAILY Torsemide (Torsemide) 20 Mg Tablet, 40 MG PO DAILY Scheduled PRN Amitriptyline HCl (Amitriptyline HCl) 10 Mg Tablet, 10 MG PO QHS PRN for SLEEP Allergies Coded Allergies: No Known Allergies (Verified , 07/12/07) A-FIB/CHADSVASC A-FIB History Current/History of A-Fib/PAF?: Yes Current PO Anticoag Therapy: Yes Treatment Treatment ordered: Rivaroxaban JAGDISH RUBIN DO Dec 25, 2020 11:31
[2020-12-25] MEDS ORDERED: GLUCOSE 4GM CHEW TABLET PO PRN (11:35)
[2020-12-25] MEDS ORDERED: GLUCAGON INJ 1MG VIAL SC PRN (11:35)
[2020-12-25] MEDS ORDERED: DEXTROSE 50% 50 ML SYRINGE IV PRN (11:35)
[2020-12-25] MEDS: HumaLOG INSULIN (NovoLOG) PER UNIT SC SCH ×2 (12:00→17:30)
[2020-12-25] MEDS: LEVOTHYROXINE 25MCG TABLET (0.025MG) PO SCH (12:25)
[2020-12-25] MEDS: SERTRALINE 100 MG TAB PO SCH (12:25)
[2020-12-25] MEDS: GABAPENTIN 100 MG CAP PO SCH ×3 (12:25→21:50)
[2020-12-25] MEDS: DIGOXIN 0.25 MG TAB PO SCH (12:26)
[2020-12-25] MEDS: POTASSIUM CHLORIDE 10 MEQ SR TABLET PO SCH ×2 (12:26→21:50)
[2020-12-25 14:00] VITALS: BP 101/63
[2020-12-25] MEDS ORDERED: FUROSEMIDE 40MG/4ML VIAL (J1940) IV SCH (14:00)
[2020-12-25] MEDS: MIDODRINE 5 MG TAB PO SCH ×2 (14:58→17:52)
[2020-12-25] MEDS: FUROSEMIDE 40MG/4ML VIAL (J1940) IV SCH ×2 (17:53→23:56)
[2020-12-25] MEDS ORDERED: RIVAROXABAN 20 MG TAB (XARELTO) PO SCH (18:00)
[2020-12-25 19:41] VITALS: BP 98/60
[2020-12-25] MEDS: METOPROLOL SUCC *XL* 25MG TAB (TopROL *XL*) PO SCH (19:41)
[2020-12-25] MEDS ORDERED: HumaLOG INSULIN (NovoLOG) PER UNIT SC SCH (21:00)
[2020-12-25 22:00] VITALS: BP 110/75
[2020-12-26] MEDS: LEVOTHYROXINE 25MCG TABLET (0.025MG) PO SCH (05:14)
[2020-12-26 06:00] VITALS: BP 102/59
[2020-12-26 06:03] LABS: HEMATOCRIT 28.8 % (42.0-52.0); HEMOGLOBIN 9.3 g/dl (13.5-17.5); MEAN CORPUSCULAR HEMOGLOBIN 32.1 pg (27.0-33.0); MEAN CORPUSCULAR HGB CONC 32.3 g/dl (32.0-36.5); MEAN CORPUSCULAR VOLUME 99.3 fl (80.0-96.0); PLATELET COUNT, AUTOMATED 175 10^3/uL (150-450); WHITE BLOOD COUNT 10.8 10^3/uL (4.0-10.0)
[2020-12-26 06:39] LABS: BLOOD UREA NITROGEN 9 MG/DL (7-18); CALCIUM LEVEL 7.6 MG/DL (8.8-10.2); CARBON DIOXIDE LEVEL 28 MEQ/L (21-32); CHLORIDE LEVEL 103 MEQ/L (98-107); CREATININE FOR GFR 0.89 MG/DL (0.70-1.30); GLOMERULAR FILTRATION RATE > 60.0 (>49); GLUCOSE, FASTING 89 MG/DL (70-100); POTASSIUM SERUM 3.4 MEQ/L (3.5-5.1); SODIUM LEVEL 138 MEQ/L (136-145)
[2020-12-26] MEDS: HumaLOG INSULIN (NovoLOG) PER UNIT SC SCH ×2 (07:30→12:00)
[2020-12-26] MEDS ORDERED: TORSEMIDE 20 MG TAB PO SCH ×2 (09:00→17:00)
[2020-12-26] MEDS: POTASSIUM CHLORIDE 10 MEQ SR TABLET PO SCH (11:16)
[2020-12-26] MEDS: MIDODRINE 5 MG TAB PO SCH ×4 (11:16→16:16)
[2020-12-26] MEDS: DIGOXIN 0.25 MG TAB PO SCH (11:17)
[2020-12-26] MEDS: METOPROLOL SUCC *XL* 25MG TAB (TopROL *XL*) PO SCH (11:17)
[2020-12-26] MEDS: SERTRALINE 100 MG TAB PO SCH (11:17)
[2020-12-26] MEDS: GABAPENTIN 100 MG CAP PO SCH ×2 (11:18→16:16)
[2020-12-26 14:00] VITALS: BP 108/67
--- NOTE | 2020-12-26 14:37 | DS.PDOC ---
Discharge Summary General Date of Admission Dec 25, 2020 at 08:35 Date of Discharge 12/26/2020 Primary Care Physician: LUCIE MCCORMACK RESOLUTION EXPERT Attending Physician: JAGDISH RUBIN DO Discharge Summary PROCEDURES PERFORMED DURING STAY: None. ADMITTING DIAGNOSES: 1. Fall with head injury. 2. Anasarca 3. Type 2 diabetes 4. Proximal atrial fibrillation 5. Hypothyroidism 6. Anxiety DISCHARGE DIAGNOSES: 1. Fall with head injury on blood thinner. 2. Anasarca, improved 3. Type 2 diabetes 4. Paroxysmal atrial fibrillation 5. Hypothyroidism 6. Anxiety 7. Obesity complicating care COMPLICATIONS/CHIEF COMPLAINT: Anasarca, Falls. HISTORY OF PRESENT ILLNESS: Patient is a 65-year-old male presented to the emergency department on 12/24/2020 after falling and bruising his hip. Patient was discharged from the emergency department and was brought home via ambulance. When the patient was placed in his recliner at home, he leaned back too far causing the recliner to roll over backwards hitting his head on the radiator. Patient states he did not hit his head on the radiator however, EMS saw that the radiator and wall was damaged and brought him back to the emergency department. Patient was also found to have increased edema in his legs up to his abdomen which is chronic for the patient. Patient was given a dose of IV Lasix in the emergency department. Patient had a negative CT scan of the head and cervical spine and because of the increased swelling and possible head injury on blood thinners, patient was admitted in the hospital under observation.. HOSPITAL COURSE: Patient did well and had negative neuro checks throughout his hospitalization. Patient states he was feeling much better. Because the patient was sitting in his chair and had leaned back too far causing him to have a fall, patient will return home on 12/26/2020. Patient will continue with his home diuretics and will need to follow-up with his primary care provider. Sonia ent's CT of the head and cervical spine was negative. Patient was feeling better and transportation was arranged to bring the patient back home on 12/26/2020. DISCHARGE MEDICATIONS: Please see below. ALLERGIES: Please see below. PHYSICAL EXAMINATION ON DISCHARGE: VITAL SIGNS: Please see below. General: Alert and oriented male patient who was laying in bed when I walked in the room. Patient not appear to be in any acute distress. HEENT: Normocephalic, atraumatic, moist mucous membranes. Neck: No lymphadenopathy or thyromegaly Cardiac: Difficult to auscultate due to body habitus however, it appeared the heart was in a regular rate and rhythm, no murmurs, normal S1, normal S2 Pulm: Difficult to auscultate due to body habitus however, it appeared the lungs were clear to auscultation bilaterally. No wheezes, rhonchi, rales Abd: Nondistended, nontender to palpation, normal bowel sounds, reducible but mildly tender to palpation hernia that is superior and to the left of the umbilicus Ext: 2+ pitting edema up through the legs which is improved, patient has hemosiderin staining in the lower extremities bilaterally LABORATORY DATA: Please see below. IMAGING: CT of the cervical spine without contrast performed on 12/25/2020 was reported to show no fracture subluxation of the cervical spine. Right larger than left pleural effusions, which were not fully imaged. CT the head performed without contrast on 12/25/2020 was reported to show intact skull, no acute intracranial hemorrhage or acute intracranial abnormality. Soft tissue swelling and edema along the right and left posterior lateral aspects of the head. Chest x-ray performed on 12/25/2020 was reported to show pulmonary vascular congestion with bilateral pleural effusions, right greater than left. Findings suggest CHF or fluid overload. PROGNOSIS: Fair ACTIVITY: As tolerated. DIET: 2 g sodium DISCHARGE PLAN: Discharge home DISPOSITION: . DISCHARGE INSTRUCTIONS: 1. Follow-up with primary care provider within 3 to 5 days of discharge. 2. Continue taking home diuretics 3. Return the emergency department if symptoms worsen ITEMS TO FOLLOWUP ON ON OUTPATIENT: 1. Continued compliance with diuresis. DISCHARGE CONDITION: Stable. TIME SPENT ON DISCHARGE: Minutes. Vital Signs/I&Os Vital Signs Date Time Temp Pulse Resp B/P (MAP) Pulse Ox O2 Delivery O2 Flow Rate FiO2 12/26/20 11:17 84 12/26/20 06:00 98.8 20 102/59 (73) 97 Room Air I&O- Last 24 Hours up to 6 AM 12/26/20 05:59 Intake Total 960 ml Output Total 450 ml Balance 510 ml Laboratory Data Labs 24H Laboratory Tests 2 12/25/20 17:12: Bedside Glucose (Misc Panel) 98 12/25/20 20:25: Bedside Glucose (Misc Panel) 125H 12/26/20 05:44: Nucleated Red Blood Cells % (auto) 0.0, Anion Gap 7L, Glomerular Filtration Rate > 60.0, Calcium Level 7.6L, Magnesium Level 2.0 12/26/20 12:25: Bedside Glucose (Misc Panel) 110 CBC/BMP Laboratory Tests 12/26/20 05:44 FSBS Laboratory Tests Test 12/25/20 17:12 12/25/20 20:25 12/26/20 12:25 Range/Units Bedside Glucose (Misc Panel) 98 125 110 80-115 MG/DL Discharge Medications Scheduled Digoxin (Digoxin) 250 Mcg Tablet, 250 MCG PO DAILY, (Reported) Gabapentin (Gabapentin) 100 Mg Capsule, 100 MG PO TID, (Reported) Levothyroxine Sodium (Levothyroxine Sodium) 25 Mcg Tablet, 25 MCG PO DAILY, (Reported) Metoprolol Succinate (Metoprolol Succinate) 25 Mg Tab.er.24h, 25 MG PO DAILY, (Reported) Midodrine HCl (Midodrine HCl) 10 Mg Tablet, 10 MG PO TID, (Reported) Potassium Chloride (Potassium Chloride) 10 Meq Tablet.er, 10 MEQ PO BID, (Reported) Rivaroxaban (Xarelto) 20 Mg Tablet, 20 MG PO DAILY, (Reported) Sertraline Hcl (Zoloft) 100 Mg Tablet, 100 MG PO DAILY, (Reported) Torsemide (Torsemide) 20 Mg Tablet, 40 MG PO DAILY, (Reported) Scheduled PRN Amitriptyline HCl (Amitriptyline HCl) 10 Mg Tablet, 10 MG PO QHS PRN for SLEEP, (Reported) Allergies Coded Allergies: No Known Allergies (Verified , 07/12/07) JAGDISH RUBIN DO Dec 26, 2020 14:37
== END 2020-12-26 17:06 | disposition home health service (06) ==
LOC: M ED 01:39 → M ED INP 08:35 → ENRESERV 12:55 → M MSPAV 13:55
PROVIDERS: ADMIT Family Medicine; ATTEND Family Medicine
DX: S09.90XA Unspecified injury of head, initial encounter (principal); W07.XXXA Fall from chair, initial encounter; Y92.098 Other place in other non-institutional residence as the place of occurrence of the external cause; Z79.01 Long term (current) use of anticoagulants; R60.1 Generalized edema; E11.9 Type 2 diabetes mellitus without complications; I48.0 Paroxysmal atrial fibrillation; E03.9 Hypothyroidism, unspecified; F41.9 Anxiety disorder, unspecified; M19.90 Unspecified osteoarthritis, unspecified site; G56.00 Carpal tunnel syndrome, unspecified upper limb; E66.9 Obesity, unspecified; Z68.44 Body mass index [BMI] 60.0-69.9, adult; Z79.899 Other long term (current) drug therapy; Z87.891 Personal history of nicotine dependence
CPT/HCPCS: 36415; 70450; 71045; 72125; 80048; 80076; 80162; 82550; 82553; 83735; 83880; 84443; 84484; 85025; 85027; 87631; 93005; 93041; 94760; 96374; 96376; 99285; G0378; J1940